=== PATIENT | male | born 1945 | race Caucasian/White ===

== ENCOUNTER 2020-08-17 09:06 | Outpatient (REF) | payer MEDICARE, SELFPAY ==
[2020-08-17 09:38] LABS: MANUAL DIFF FLAG NO
[2020-08-17 09:42] LABS: Basophils Absolute Auto 0.1 X10*3/uL (0.0-0.2); Basophils Percent Auto 0.8 % (0-2); Eosinophils Absolute Auto 0.3 X10*3/uL (0.0-0.4); Eosinophils Percent Auto 4.5 % (0-4); Hematocrit 42.1 % (42-52); Hemoglobin 13.7 g/dl (14.0-18.0); Imm Gran Abs Auto 0.02 X10*3/uL (0.00-0.03); Imm Gran Pct Auto 0.3 % (0.0-0.4); Lymphocytes Absolute Auto 1.6 X10*3/uL (1.2-4.9); Lymphocytes Percent Auto 26.5 % (20-40); Mean Corpuscular HGB Conc 32.5 g/dl (31.0-36.0); Mean Corpuscular Hemoglobin 32.7 pg (27.0-33.0); Mean Corpuscular Volume 100.5 fL (80-98); Mean Platelet Volume 9.3 fL (9.4-12.4); Monocytes Absolute Auto 0.7 X10*3/uL (0.1-1.2); Monocytes Percent Auto 10.9 % (2-11); Neutrophils Absolute Auto 3.4 X10*3/uL (2.0-8.3); Platelet Count 252 X10*3/uL (160-400); Red Blood Count 4.19 X10*6/uL (4.60-5.80); Red Cell Distribution Width 13.4 % (11.0-16.0)
[2020-08-17 10:16] LABS: Alanine Aminotransferase 20 U/L (0-40); Albumin Level 3.8 g/dL (3.5-5.0); Alkaline Phosphatase 104 U/L (39-117); Anion Gap 9 (12-20); Aspartate Amino Transferase 26 U/L (5-37); Bilirubin Total 1.1 mg/dL (0.0-1.0); Blood Urea Nitrogen 22 mg/dL (9-16); Carbon Dioxide 28 mmol/L (22-29); Chloride 107 mmol/L (96-108); Cholesterol 130 mg/dL; Estimated Glomerular Filt Rate > 60; Glucose Fasting 88 mg/dL (60-99); HDL Cholesterol 53 mg/dL; LDL Cholesterol Calculated 65 mg/dl; Potassium 4.8 mmol/l (3.3-5.1); Sodium 139 mmol/L (135-145); Total Protein 6.6 g/dL (6.5-8.0); Triglycerides 60 mg/dL
== END 2020-08-17 09:07 | disposition home or self-care (01) ==
LOC: HO.LAB 09:06
PROVIDERS: PCP Internal Medicine Medical Oncology; Visit Provider Internal Medicine Medical Oncology
DX: E78.5 Hyperlipidemia, unspecified (principal); E66.3 Overweight
CPT/HCPCS: 36415; 80053; 80061; 85025

== ENCOUNTER → 2020-09-23 08:54 | Outpatient (BNVA) | payer MEDICARE, SELFPAY | PROVIDERS: PCP Internal Medicine Medical Oncology; Visit Provider Surgery Vascular Surgery | DX: I73.9 Peripheral vascular disease, unspecified (principal) | CPT/HCPCS: 99202 ==

== ENCOUNTER 2020-10-04 13:08 | Outpatient (REF) | payer MEDICARE, SELFPAY ==
--- NOTE | 2020-10-04 | US_ITS ---
EXAMINATION: COLOR-FLOW DUPLEX IMAGING OF THE BILATERAL LOWER EXTREMITY ARTERIAL SYSTEM. VELOCITY MEASUREMENTS THROUGHOUT THE FEMORAL ARTERIES WITH ANKLE-BRACHIAL PERIPHERAL ARTERIAL TESTING. Interventional Radiologist: Will Little M.D., F.S.I.R., F.A.C.R. CLINICAL INFORMATION: This is a 75-year-old male with peripheral vascular disease. Bilateral claudication. RIGHT FEMORAL RUNOFF VELOCITIES: The right common femoral artery measures 120 cm/s and biphasic. The right profunda femoral artery is 44 cm/s and is biphasic. Right proximal superficial femoral artery measures 92 cm/s and biphasic. Mid superficial femoral artery is 127 cm/s and biphasic. Distal right superficial femoral artery measures 121 cm/s and is biphasic. Right popliteal velocity measures 70 cm/s and is biphasic. The posterior tibial artery velocity measures 39 cm/s and was biphasic. The right ankle-brachial index is 0.80. LEFT FEMORAL RUNOFF VELOCITIES: The left common femoral artery measures 234 cm/s and biphasic. The left profunda femoral artery is 104 cm/s and is biphasic. Left proximal superficial femoral artery measures 126 cm/s and biphasic. Mid superficial femoral artery is 103 cm/s and biphasic. Distal left superficial femoral artery measures 95 cm/s and is biphasic. Left popliteal velocity measures 83 cm/s and is biphasic. The posterior tibial artery velocity measures 33 cm/s and was monophasic. The left ankle-brachial index is 0.74. US/US NA complete IMPRESSION: 1. There is bilateral mild hemodynamically significant atherosclerotic disease at rest. 2. There is a hemodynamically significant stenosis within the left common femoral artery with elevated velocities.
--- NOTE | 2020-10-04 13:13 | US_ITS ---
EXAMINATION: COLOR-FLOW DUPLEX IMAGING OF THE BILATERAL LOWER EXTREMITY ARTERIAL SYSTEM. VELOCITY MEASUREMENTS THROUGHOUT THE FEMORAL ARTERIES WITH ANKLE-BRACHIAL PERIPHERAL ARTERIAL TESTING. Interventional Radiologist: Will Little M.D., F.S.I.R., F.A.C.R. CLINICAL INFORMATION: This is a 75-year-old male with peripheral vascular disease. Bilateral claudication. RIGHT FEMORAL RUNOFF VELOCITIES: The right common femoral artery measures 120 cm/s and biphasic. The right profunda femoral artery is 44 cm/s and is biphasic. Right proximal superficial femoral artery measures 92 cm/s and biphasic. Mid superficial femoral artery is 127 cm/s and biphasic. Distal right superficial femoral artery measures 121 cm/s and is biphasic. Right popliteal velocity measures 70 cm/s and is biphasic. The posterior tibial artery velocity measures 39 cm/s and was biphasic. The right ankle-brachial index is 0.80. LEFT FEMORAL RUNOFF VELOCITIES: The left common femoral artery measures 234 cm/s and biphasic. The left profunda femoral artery is 104 cm/s and is biphasic. Left proximal superficial femoral artery measures 126 cm/s and biphasic. Mid superficial femoral artery is 103 cm/s and biphasic. Distal left superficial femoral artery measures 95 cm/s and is biphasic. Left popliteal velocity measures 83 cm/s and is biphasic. The posterior tibial artery velocity measures 33 cm/s and was monophasic. The left ankle-brachial index is 0.74. US/US arterial duplex LE BI IMPRESSION: 1. There is bilateral mild hemodynamically significant atherosclerotic disease at rest. 2. There is a hemodynamically significant stenosis within the left common femoral artery with elevated velocities.
== END 2020-10-04 13:09 | disposition home or self-care (01) ==
LOC: HO.US 13:08
PROVIDERS: Visit Provider Surgery Vascular Surgery
DX: I70.213 Atherosclerosis of native arteries of extremities with intermittent claudication, bilateral legs (principal)
CPT/HCPCS: 93923; 93925

== ENCOUNTER → 2020-10-19 11:08 | Outpatient (BNVA) | payer MEDICARE, SELFPAY | PROVIDERS: PCP Internal Medicine Medical Oncology; Visit Provider Surgery Vascular Surgery | DX: I73.9 Peripheral vascular disease, unspecified (principal) | CPT/HCPCS: 99212 ==

== ENCOUNTER → 2020-11-09 09:44 | Outpatient (BNVA) | payer BC, SELFPAY | PROVIDERS: PCP Internal Medicine Medical Oncology; Visit Provider Internal Medicine Cardiovascular Disease | DX: Z76.89 Persons encountering health services in other specified circumstances (principal) ==

== ENCOUNTER 2020-11-18 08:10 | Outpatient (REF) | payer MEDICARE, SELFPAY ==
[2020-11-18 10:11] LABS: MANUAL DIFF FLAG NO
[2020-11-18 10:18] LABS: Basophils Absolute Auto 0.1 X10*3/uL (0.0-0.2); Basophils Percent Auto 0.8 % (0-2); Eosinophils Absolute Auto 0.3 X10*3/uL (0.0-0.4); Eosinophils Percent Auto 4.6 % (0-4); Hematocrit 46.4 % (42-52); Hemoglobin 15.2 g/dl (14.0-18.0); Imm Gran Abs Auto 0.01 X10*3/uL (0.00-0.03); Imm Gran Pct Auto 0.2 % (0.0-0.4); Lymphocytes Absolute Auto 1.7 X10*3/uL (1.2-4.9); Lymphocytes Percent Auto 29.4 % (20-40); Mean Corpuscular HGB Conc 32.8 g/dl (31.0-36.0); Mean Corpuscular Volume 100.9 fL (80-98); Mean Platelet Volume 9.6 fL (9.4-12.4); Monocytes Absolute Auto 0.6 X10*3/uL (0.1-1.2); Monocytes Percent Auto 9.5 % (2-11); Neutrophils Absolute Auto 3.3 X10*3/uL (2.0-8.3); Neutrophils Percent Auto 55.5 % (45-73); Platelet Count 263 X10*3/uL (160-400); Red Cell Distribution Width 12.7 % (11.0-16.0); White Blood Count 5.9 X10*3/uL (4.8-10.8)
[2020-11-18 10:35] LABS: Alanine Aminotransferase 24 U/L (0-40); Albumin Level 3.9 g/dL (3.5-5.0); Alkaline Phosphatase 101 U/L (39-117); Anion Gap 11 (12-20); Aspartate Amino Transferase 23 U/L (5-37); Bilirubin Total 1.3 mg/dL (0.0-1.0); Blood Urea Nitrogen 20 mg/dL (9-16); Calcium 9.3 mg/dL (8.4-10.2); Carbon Dioxide 28 mmol/L (22-29); Chloride 105 mmol/L (96-108); Cholesterol 135 mg/dL; Estimated Glomerular Filt Rate > 60; Glucose Fasting 97 mg/dL (60-99); HDL Cholesterol 59 mg/dL; LDL Cholesterol Calculated 62 mg/dl; Potassium 4.6 mmol/l (3.3-5.1); Sodium 139 mmol/L (135-145); Total Protein 6.8 g/dL (6.5-8.0); Triglycerides 70 mg/dL
== END 2020-11-18 08:11 | disposition home or self-care (01) ==
LOC: HO.10HDL 08:10
PROVIDERS: Visit Provider Internal Medicine Medical Oncology
DX: E78.5 Hyperlipidemia, unspecified (principal); E66.3 Overweight; N40.0 Benign prostatic hyperplasia without lower urinary tract symptoms; Z12.5 Encounter for screening for malignant neoplasm of prostate
CPT/HCPCS: 36415; 80053; 80061; 84153; 85025

== ENCOUNTER 2021-03-17 07:57 | Outpatient (REF) | payer MEDICARE, SELFPAY ==
[2021-03-17 10:18] LABS: MANUAL DIFF FLAG NO
[2021-03-17 10:25] LABS: Basophils Absolute Auto 0.1 X10*3/uL (0.0-0.2); Basophils Percent Auto 1.4 % (0-2); Eosinophils Absolute Auto 0.3 X10*3/uL (0.0-0.4); Eosinophils Percent Auto 6.4 % (0-4); Hematocrit 45.8 % (42-52); Hemoglobin 15.5 g/dl (14.0-18.0); Imm Gran Abs Auto 0.01 X10*3/uL (0.00-0.03); Imm Gran Pct Auto 0.2 % (0.0-0.4); Lymphocytes Absolute Auto 1.6 X10*3/uL (1.2-4.9); Lymphocytes Percent Auto 32.6 % (20-40); Mean Corpuscular HGB Conc 33.8 g/dl (31.0-36.0); Mean Corpuscular Hemoglobin 33.6 pg (27.0-33.0); Mean Corpuscular Volume 99.3 fL (80-98); Mean Platelet Volume 9.7 fL (9.4-12.4); Monocytes Absolute Auto 0.5 X10*3/uL (0.1-1.2); Monocytes Percent Auto 10.7 % (2-11); Neutrophils Absolute Auto 2.4 X10*3/uL (2.0-8.3); Neutrophils Percent Auto 48.7 % (45-73); Platelet Count 254 X10*3/uL (160-400); Red Blood Count 4.61 X10*6/uL (4.60-5.80); Red Cell Distribution Width 12.4 % (11.0-16.0)
== END 2021-03-17 07:58 | disposition home or self-care (01) ==
LOC: HO.10HDL 07:57
PROVIDERS: Visit Provider Internal Medicine Medical Oncology
DX: E78.5 Hyperlipidemia, unspecified (principal); E66.3 Overweight
CPT/HCPCS: 36415; 85025

== ENCOUNTER 2021-03-21 07:34 | Outpatient (REF) | payer MEDICARE, SELFPAY ==
[2021-03-21 10:36] LABS: Alanine Aminotransferase 23 U/L (0-40); Albumin Level 4.1 g/dL (3.5-5.0); Alkaline Phosphatase 120 U/L (39-117); Anion Gap 13 (12-20); Aspartate Amino Transferase 25 U/L (5-37); Bilirubin Total 1.4 mg/dL (0.0-1.0); Blood Urea Nitrogen 24 mg/dL (9-16); Calcium 9.8 mg/dL (8.4-10.2); Carbon Dioxide 28 mmol/L (22-29); Chloride 103 mmol/L (96-108); Cholesterol 129 mg/dL; Estimated Glomerular Filt Rate > 60; Glucose Fasting 90 mg/dL (60-99); HDL Cholesterol 57 mg/dL; LDL Cholesterol Calculated 60 mg/dl; Sodium 139 mmol/L (135-145); Total Protein 6.9 g/dL (6.5-8.0); Triglycerides 63 mg/dL
== END 2021-03-21 07:35 | disposition home or self-care (01) ==
LOC: HO.10HDL 07:34
PROVIDERS: Visit Provider Internal Medicine Medical Oncology
DX: E78.5 Hyperlipidemia, unspecified (principal); E66.3 Overweight
CPT/HCPCS: 36415; 80053; 80061

== ENCOUNTER 2021-04-07 09:20 | Outpatient (REF) | payer MEDICARE, SELFPAY ==
--- NOTE | ~2021-04-07 | US_ITS ---
EXAMINATION: ANKLE-BRACHIAL INDICES SINGLE LEVEL PULSE VOLUME RECORDING ARTERIAL DUPLEX BILATERAL LEGS CLINICAL INFORMATION: Peripheral vascular disease. COMPARISON: None TECHNIQUE: Ankle-brachial indices and PVR at the ankle were obtained. Duplex Doppler of the bilateral lower extremity arterial systems was performed. FINDINGS: RIGHT: Ankle-brachial index: 0.6 PVR: Blunted Common femoral: PSV 118 cm/s. Biphasic waveform. Deep femoral: PSV 523 cm/s. Triphasic waveform proximally with more monophasic waveform distally. Proximal superficial femoral: PSV 92 cm/s. Biphasic waveform. Mid superficial femoral: PSV 204 cm/s. Biphasic waveform. Distal superficial femoral: PSV 119 cm/s. Biphasic waveform. Popliteal: PSV 70 cm/s. Biphasic waveform. Posterior tibial artery: PSV 26 cm/s. Monophasic waveform. LEFT: Ankle-brachial index: 0.82 PVR: Normal Common femoral: PSV 156 cm/s. Biphasic waveform. Deep femoral: PSV 194 cm/s. Biphasic waveform. Proximal superficial femoral: PSV 108 cm/s. Biphasic waveform. Mid superficial femoral: PSV 97 cm/s. Biphasic waveform. Distal superficial femoral: PSV 85 cm/s. Monophasic waveform. Popliteal: PSV 62 cm/s. Triphasic waveform. Posterior tibial artery: PSV 30 cm/s. Monophasic waveform. US/US arterial duplex LE BI IMPRESSION: Right lower extremity: Ankle-brachial index 0.60 consistent with moderate peripheral arterial disease. There is extensive SFA segment disease with calcified high-grade stenoses. By NA disease has worsened compared to 10/04/2020 (previously 0.80) Left lower extremity: Ankle-brachial index 0.82 consistent with mild peripheral arterial disease. There is extensive SFA segment disease with calcified high-grade stenoses. By NA disease is stable compared to 09/24/2020.
--- NOTE | ~2021-04-07 | US_ITS ---
EXAMINATION: ANKLE-BRACHIAL INDICES SINGLE LEVEL PULSE VOLUME RECORDING ARTERIAL DUPLEX BILATERAL LEGS CLINICAL INFORMATION: Peripheral vascular disease. COMPARISON: None TECHNIQUE: Ankle-brachial indices and PVR at the ankle were obtained. Duplex Doppler of the bilateral lower extremity arterial systems was performed. FINDINGS: RIGHT: Ankle-brachial index: 0.6 PVR: Blunted Common femoral: PSV 118 cm/s. Biphasic waveform. Deep femoral: PSV 523 cm/s. Triphasic waveform proximally with more monophasic waveform distally. Proximal superficial femoral: PSV 92 cm/s. Biphasic waveform. Mid superficial femoral: PSV 204 cm/s. Biphasic waveform. Distal superficial femoral: PSV 119 cm/s. Biphasic waveform. Popliteal: PSV 70 cm/s. Biphasic waveform. Posterior tibial artery: PSV 26 cm/s. Monophasic waveform. LEFT: Ankle-brachial index: 0.82 PVR: Normal Common femoral: PSV 156 cm/s. Biphasic waveform. Deep femoral: PSV 194 cm/s. Biphasic waveform. Proximal superficial femoral: PSV 108 cm/s. Biphasic waveform. Mid superficial femoral: PSV 97 cm/s. Biphasic waveform. Distal superficial femoral: PSV 85 cm/s. Monophasic waveform. Popliteal: PSV 62 cm/s. Triphasic waveform. Posterior tibial artery: PSV 30 cm/s. Monophasic waveform. US/US NA complete IMPRESSION: Right lower extremity: Ankle-brachial index 0.60 consistent with moderate peripheral arterial disease. There is extensive SFA segment disease with calcified high-grade stenoses. By NA disease has worsened compared to 10/04/2020 (previously 0.80) Left lower extremity: Ankle-brachial index 0.82 consistent with mild peripheral arterial disease. There is extensive SFA segment disease with calcified high-grade stenoses. By NA disease is stable compared to 09/24/2020.
== END 2021-04-07 09:21 | disposition home or self-care (01) ==
LOC: HO.US 09:20
PROVIDERS: PCP Internal Medicine Medical Oncology; Visit Provider Surgery Vascular Surgery
DX: I70.213 Atherosclerosis of native arteries of extremities with intermittent claudication, bilateral legs (principal)
CPT/HCPCS: 93923; 93925

== ENCOUNTER → 2021-04-12 09:19 | Outpatient (BNVA) | payer MEDICARE, SELFPAY | PROVIDERS: PCP Internal Medicine Medical Oncology; Visit Provider Surgery Vascular Surgery | DX: I73.9 Peripheral vascular disease, unspecified (principal) | CPT/HCPCS: 99212 ==

== ENCOUNTER 2021-04-13 07:26 | Day surgery (SDC) | payer OTHER, SELFPAY ==
[2021-04-13] VITALS (9 sets, daily range): BP systolic 127–166; BP diastolic 54–70; PULSE 49–61; RESP 16–18; TEMP 36.1–36.7; O2SAT 96–99; BMI 28.0
[2021-04-13 08:13] LABS: MANUAL DIFF FLAG NO
[2021-04-13 08:19] LABS: Basophils Absolute Auto 0.1 X10*3/uL (0.0-0.2); Basophils Percent Auto 1.2 % (0-2); Eosinophils Absolute Auto 0.3 X10*3/uL (0.0-0.4); Eosinophils Percent Auto 6.8 % (0-4); Hematocrit 43.8 % (42-52); Hemoglobin 14.7 g/dl (14.0-18.0); Imm Gran Abs Auto 0.01 X10*3/uL (0.00-0.03); Imm Gran Pct Auto 0.2 % (0.0-0.4); Lymphocytes Absolute Auto 1.7 X10*3/uL (1.2-4.9); Lymphocytes Percent Auto 33.2 % (20-40); Mean Corpuscular HGB Conc 33.6 g/dl (31.0-36.0); Mean Corpuscular Hemoglobin 33.3 pg (27.0-33.0); Mean Corpuscular Volume 99.3 fL (80-98); Mean Platelet Volume 9.1 fL (9.4-12.4); Monocytes Absolute Auto 0.7 X10*3/uL (0.1-1.2); Monocytes Percent Auto 12.9 % (2-11); Neutrophils Absolute Auto 2.3 X10*3/uL (2.0-8.3); Neutrophils Percent Auto 45.7 % (45-73); Platelet Count 219 X10*3/uL (160-400); Red Blood Count 4.41 X10*6/uL (4.60-5.80); Red Cell Distribution Width 12.8 % (11.0-16.0)
[2021-04-13 08:30] LABS: Prothrombin Time 11.7 SEC (10.8-13.0)
[2021-04-13 08:33] LABS: Partial Thromboplastin Time 35.5 SEC (24.1-38.0)
[2021-04-13 08:37] LABS: Anion Gap 10 (12-20); Blood Urea Nitrogen 21 mg/dL (9-16); Calcium 9.4 mg/dL (8.4-10.2); Carbon Dioxide 26 mmol/L (22-29); Chloride 104 mmol/L (96-108); Creatinine Clr Calc Pharmacy 60.5; Estimated Glomerular Filt Rate > 60; Glucose Random 92 mg/dL (60-115); Potassium 4.2 mmol/L (3.3-5.1); Sodium 136 mmol/L (135-145)
--- NOTE | 2021-04-13 11:17 | W.PM.OPN ---
Operative Note Operative Note Date of Service: 04/13/21 Narrative: Angiogram report from [facility] Preoperative diagnosis: Atherosclerosis of right lower extremity with with activity limiting claudication Postoperative diagnosis: Same Procedure: 1. Ultrasound-guided left common femoral access 2. Aortogram with right lower extremity runoff 3. Angioplasty of right peroneal artery 4. Angioplasty of right popliteal artery with drug coated balloon 6. Angioplasty and stent of right SFA Surgeon:Rusty Bear M.D. Game Producer:None Anesthesia: Local with moderate conscious sedation for a total of 85 minutes, performed by fl Specimens:none Drains:none Estimated blood loss: Less than 10 ml Indications: 75-year-old gentleman well known to me with activity limiting claudication. His NA had decreased from 0.8 to 0.6. He now presents for endovascular intervention The patient has signed the informed consent after reviewing risks, complications, benefits, and alternatives previously discussed with the patient in my office. The patient was given the opportunity to ask any additional questions or voice any concerns. All questions were answered to the patient's satisfaction. Procedure in detail: Patient was brought to the angiography suite prior to which a time-out was called for patient identification and site verification. Bilateral groins were prepped and draped in the standard surgical fashion. Under ultrasound guidance left common femoral was punctured with micro puncture needle and wire. Subsequently a precision 4 [place] sheath was then placed. Bentson wire was advanced to the level of the aorta. 4 [place] Flush catheter was brought up and parked at the level of the renal arteries. Aortogram was then undertaken. Catheter was brought down to the level of the iliac bifurcation. Iliacs were subsequently imaged. Catheter was then brought in up and over to the right side SFA. Runoff study was then undertaken. Once there was study complete it was recognized that he had significant SFA disease in the distal part including popliteal and there was significant disease in the below-knee vessels origin. At this 0.5 1000 units of systemic heparin was administered. Up and over 5 [place] sheath was then placed. Once this was accomplished we then used a Glidewire Advantage to traverse these lesions. We were able to get in to the peroneal artery after some manipulation. We then insufflated this area with a 3 x 100 balloon. There was still some residual stenosis in the prone ill and a 3 x 20 balloon had to be brought into this area. Once this was accomplished we turned our attention to the behind knee popliteal. This was insufflated with a 5 x 60 drug coated balloon on the right side. This was brought into position in under 3 minutes and left insufflated for a total of 3 minutes in duration. Once this was accomplished there was in the mid to distal SFA a total occlusion. We plasty this with a 6 x 20 balloon. Subsequently we placed a 6 x 40 stent. We then brought in a 6 x 20 and a 6 x 30 balloon to try to iron out the stent and obtain good wall apposition. Once this was accomplished completion angiogram was undertaken catheter wire sheath was brought back to the ipsilateral side and StarClose closure device was deployed. At the end the case sponge instrument counts were correct patient tolerated the procedure well returned to recovery with stable vitals. Interpretation of films: 1. Ultrasound demonstrates appropriate femoral puncture. Image of which was saved. 2. Aortogram demonstrates appropriate caliber aorta. Minimal disease. Appropriate take-off of the renals. 3. Iliac images demonstrate normal flow but significant tortuosity. 4. Right lower extremity had some mild to moderate disease throughout the SFA. Did mid to distal SFA had a near total occlusion. Significant disease at the behind knee popliteal. Poor flow through the origin of the trifurcation. Once through the trifurcation there was reconstitution of the anterior tibial and peroneal posterior tibial was totally occluded. Postprocedure the patient had excellent flow through the SFA popliteal peroneal and anterior tibial arteries. Conclusion: 1. Successful angioplasty and stent of right SFA, successful plasty of right popliteal with drug coated balloon., successful plasty of right peroneal artery. This note is constructed using voice recognition software. While every effort has been made to ensure accuracy, real estate inspector errors may have been included. Thank you for allowing me to participate in the care of your patient. Yours sincerely, Rusty Bear MD, FACS, R.P.V.I.
[2021-04-13] MEDS: Clopidogrel Bisulfate 75 MG TABLET PO (11:47)
[2021-04-13] MEDS: iohexoL 300 MG/ML 100 ML INFUS..BTL IV (12:21)
[2021-04-13] MEDS: iohexoL 300 MG/ML 50 ML INFUS..BTL IV (12:22)
[2021-04-13] MEDS: Lidocaine HCl 1 % MPF 5 ML VIAL SUBCUT (12:23)
== END 2021-04-13 15:28 | disposition home or self-care (01) ==
PROVIDERS: PCP Internal Medicine Medical Oncology; Visit Provider Surgery Vascular Surgery
DX: I70.211 Atherosclerosis of native arteries of extremities with intermittent claudication, right leg (principal); Z87.891 Personal history of nicotine dependence
CPT/HCPCS: 36253; 36415; 37226; 37228; 76937; 80048; 85025; 85610; 85730; 99152; 99153; C1725; C1769; C1876; C1887; C1894; J2250; J3010; Q9967

== ENCOUNTER → 2021-04-25 13:21 | Outpatient (BNVA) | payer MEDICARE, OTHER, SELFPAY | PROVIDERS: PCP Internal Medicine Medical Oncology; Visit Provider Surgery Vascular Surgery | DX: I73.9 Peripheral vascular disease, unspecified (principal) | CPT/HCPCS: 99212 ==

== ENCOUNTER → 2021-05-05 08:16 | Outpatient (BNVA) | payer MEDICARE, OTHER, SELFPAY | PROVIDERS: PCP Internal Medicine Medical Oncology; Visit Provider Internal Medicine Cardiovascular Disease | DX: I25.10 Atherosclerotic heart disease of native coronary artery without angina pectoris (principal); I10 Essential (primary) hypertension | CPT/HCPCS: 99212 ==

== ENCOUNTER 2021-07-19 08:37 | Outpatient (REF) | payer MEDICARE, OTHER, SELFPAY ==
[2021-07-19 10:22] LABS: MANUAL DIFF FLAG NO
[2021-07-19 10:26] LABS: Basophils Absolute Auto 0.1 X10*3/uL (0.0-0.2); Basophils Percent Auto 1.2 % (0-2); Eosinophils Absolute Auto 0.3 X10*3/uL (0.0-0.4); Eosinophils Percent Auto 6.6 % (0-4); Hematocrit 41.6 % (42-52); Hemoglobin 13.8 g/dl (14.0-18.0); Imm Gran Abs Auto 0.01 X10*3/uL (0.00-0.03); Imm Gran Pct Auto 0.2 % (0.0-0.4); Lymphocytes Absolute Auto 1.5 X10*3/uL (1.2-4.9); Lymphocytes Percent Auto 28.3 % (20-40); Mean Corpuscular HGB Conc 33.2 g/dl (31.0-36.0); Mean Corpuscular Volume 99.5 fL (80-98); Mean Platelet Volume 9.7 fL (9.4-12.4); Monocytes Absolute Auto 0.6 X10*3/uL (0.1-1.2); Monocytes Percent Auto 11.7 % (2-11); Neutrophils Absolute Auto 2.7 X10*3/uL (2.0-8.3); Platelet Count 240 X10*3/uL (160-400); Red Blood Count 4.18 X10*6/uL (4.60-5.80); Red Cell Distribution Width 12.8 % (11.0-16.0); White Blood Count 5.1 X10*3/uL (4.8-10.8)
[2021-07-19 10:43] LABS: Alanine Aminotransferase 18 U/L (0-40); Albumin Level 3.8 g/dL (3.5-5.0); Alkaline Phosphatase 95 U/L (39-117); Anion Gap 10 (12-20); Aspartate Amino Transferase 21 U/L (5-37); Bilirubin Total 1.2 mg/dL (0.0-1.0); Blood Urea Nitrogen 19 mg/dL (9-16); Calcium 9.3 mg/dL (8.4-10.2); Carbon Dioxide 26 mmol/L (22-29); Chloride 107 mmol/L (96-108); Cholesterol 120 mg/dL; Estimated Glomerular Filt Rate > 60; Glucose Fasting 90 mg/dL (60-99); HDL Cholesterol 59 mg/dL; LDL Cholesterol Calculated 49 mg/dl; Potassium 4.8 mmol/L (3.3-5.1); Sodium 138 mmol/L (135-145); Total Protein 6.6 g/dL (6.5-8.0); Triglycerides 62 mg/dL
[2021-07-19 11:07] LABS: Prostate Specific Antigen 3.54 ng/mL (<0.05-4.0)
== END 2021-07-19 08:38 | disposition home or self-care (01) ==
LOC: HO.10HDL 08:37
PROVIDERS: Visit Provider Internal Medicine Medical Oncology
DX: Z12.5 Encounter for screening for malignant neoplasm of prostate (principal); E78.5 Hyperlipidemia, unspecified; E66.3 Overweight; N40.0 Benign prostatic hyperplasia without lower urinary tract symptoms
CPT/HCPCS: 36415; 80053; 80061; 84153; 85025

== ENCOUNTER 2021-10-17 08:31 | Outpatient (REF) | payer MEDICARE, SELFPAY ==
[2021-10-17 09:55] LABS: MANUAL DIFF FLAG NO
[2021-10-17 10:02] LABS: Basophils Absolute Auto 0.1 X10*3/uL (0.0-0.2); Basophils Percent Auto 1.1 % (0-2); Eosinophils Absolute Auto 0.3 X10*3/uL (0.0-0.4); Eosinophils Percent Auto 5.7 % (0-4); Hematocrit 43.9 % (42.0-52.0); Hemoglobin 14.4 g/dl (14.0-18.0); Imm Gran Abs Auto 0.01 X10*3/uL (0.00-0.03); Imm Gran Pct Auto 0.2 % (0.0-0.4); Lymphocytes Absolute Auto 1.7 X10*3/uL (1.2-4.9); Lymphocytes Percent Auto 30.1 % (20-40); Mean Corpuscular HGB Conc 32.8 g/dl (31.0-36.0); Mean Corpuscular Hemoglobin 32.9 pg (27.0-33.0); Mean Corpuscular Volume 100.2 fL (80.0-98.0); Mean Platelet Volume 9.6 fL (9.4-12.4); Monocytes Absolute Auto 0.7 X10*3/uL (0.1-1.2); Monocytes Percent Auto 11.5 % (2-11); Neutrophils Absolute Auto 2.9 x10*3/uL (2.0-8.3); Neutrophils Percent Auto 51.4 % (45-73); Platelet Count 238 X10*3/uL (160-400); Red Blood Count 4.38 X10*6/uL (4.60-5.80); Red Cell Distribution Width 12.8 % (11.0-16.0); White Blood Count 5.7 X10*3/uL (4.8-10.8)
[2021-10-17 10:15] LABS: Alanine Aminotransferase 18 U/L (0-40); Albumin Level 3.8 g/dL (3.5-5.0); Alkaline Phosphatase 93 U/L (39-117); Anion Gap 9 (12-20); Aspartate Amino Transferase 22 U/L (5-37); Blood Urea Nitrogen 16 mg/dL (9-16); Calcium 9.7 mg/dL (8.4-10.2); Carbon Dioxide 28 mmol/L (22-29); Chloride 106 mmol/L (96-108); Cholesterol 127 mg/dL; Estimated Glomerular Filt Rate > 60; Glucose Fasting 92 mg/dL (60-99); HDL Cholesterol 56 mg/dL; LDL Cholesterol Calculated 63 mg/dl; Potassium 4.7 mmol/L (3.3-5.1); Sodium 138 mmol/L (135-145); Total Protein 6.6 g/dL (6.5-8.0); Triglycerides 42 mg/dL
== END 2021-10-17 08:32 | disposition home or self-care (01) ==
LOC: HO.10HDL 08:31
PROVIDERS: Visit Provider Internal Medicine Medical Oncology
DX: N40.0 Benign prostatic hyperplasia without lower urinary tract symptoms (principal); E78.5 Hyperlipidemia, unspecified
CPT/HCPCS: 36415; 80053; 80061; 85025

== ENCOUNTER 2022-02-14 08:10 | Outpatient (REF) | payer MEDICARE, SELFPAY ==
[2022-02-14 11:29] LABS: MANUAL DIFF FLAG NO
[2022-02-14 11:38] LABS: Basophils Absolute Auto 0.1 X10*3/uL (0.0-0.2); Basophils Percent Auto 1.3 % (0-2); Eosinophils Absolute Auto 0.3 X10*3/uL (0.0-0.4); Eosinophils Percent Auto 6.3 % (0-4); Hematocrit 43.4 % (42.0-52.0); Hemoglobin 14.2 g/dl (14.0-18.0); Imm Gran Abs Auto 0.01 X10*3/uL (0.00-0.03); Imm Gran Pct Auto 0.2 % (0.0-0.4); Lymphocytes Absolute Auto 1.6 X10*3/uL (1.2-4.9); Lymphocytes Percent Auto 34.2 % (20-40); Mean Corpuscular HGB Conc 32.7 g/dl (31.0-36.0); Mean Corpuscular Hemoglobin 32.8 pg (27.0-33.0); Mean Corpuscular Volume 100.2 fL (80.0-98.0); Mean Platelet Volume 9.5 fL (9.4-12.4); Monocytes Absolute Auto 0.6 X10*3/uL (0.1-1.2); Monocytes Percent Auto 11.7 % (2-11); Neutrophils Absolute Auto 2.2 x10*3/uL (2.0-8.3); Neutrophils Percent Auto 46.3 % (45-73); Platelet Count 243 X10*3/uL (160-400); Red Blood Count 4.33 X10*6/uL (4.60-5.80); Red Cell Distribution Width 12.9 % (11.0-16.0); White Blood Count 4.8 X10*3/uL (4.8-10.8)
[2022-02-14 11:56] LABS: Alanine Aminotransferase 24 U/L (0-40); Albumin Level 3.8 g/dL (3.5-5.0); Alkaline Phosphatase 91 U/L (39-117); Anion Gap 10 (12-20); Aspartate Amino Transferase 25 U/L (5-37); Bilirubin Total 1.5 mg/dL (0.0-1.0); Blood Urea Nitrogen 23 mg/dL (9-16); Calcium 9.4 mg/dL (8.4-10.2); Carbon Dioxide 27 mmol/L (22-29); Chloride 106 mmol/L (96-108); Cholesterol 122 mg/dL; Estimated Glomerular Filt Rate > 60; Glucose Fasting 90 mg/dL (60-99); HDL Cholesterol 53 mg/dL; LDL Cholesterol Calculated 60 mg/dl; Potassium 4.9 mmol/L (3.3-5.1); Sodium 138 mmol/L (135-145); Total Protein 6.5 g/dL (6.5-8.0); Triglycerides 48 mg/dL
[2022-02-14 12:05] LABS: Prostate Specific Antigen 2.46 ng/mL (<0.05-4.0)
== END 2022-02-14 08:11 | disposition home or self-care (01) ==
LOC: HO.WFDLDS 08:10
PROVIDERS: Visit Provider Internal Medicine Medical Oncology
DX: E78.5 Hyperlipidemia, unspecified (principal); E66.3 Overweight; N52.9 Male erectile dysfunction, unspecified; N40.0 Benign prostatic hyperplasia without lower urinary tract symptoms; Z12.5 Encounter for screening for malignant neoplasm of prostate
CPT/HCPCS: 36415; 80053; 80061; 84153; 85025

== ENCOUNTER → 2022-05-08 08:36 | Outpatient (BNVA) | payer MEDICARE, SELFPAY | PROVIDERS: PCP Nurse Practitioner Family; Visit Provider Internal Medicine Cardiovascular Disease | DX: I25.10 Atherosclerotic heart disease of native coronary artery without angina pectoris (principal); I10 Essential (primary) hypertension | CPT/HCPCS: 93005; 99212 ==

== ENCOUNTER 2023-01-17 09:45 | Outpatient (REF) | payer MEDICARE, SELFPAY ==
[2023-01-17 10:57] LABS: MANUAL DIFF FLAG NO
[2023-01-17 11:15] LABS: Basophils Absolute Auto 0.1 X10*3/uL (0.0-0.2); Basophils Percent Auto 0.9 % (0-2); Eosinophils Absolute Auto 0.3 X10*3/uL (0.0-0.4); Eosinophils Percent Auto 4.7 % (0-4); Hematocrit 37.1 % (42.0-52.0); Hemoglobin 12.6 g/dl (14.0-18.0); Imm Gran Abs Auto 0.02 X10*3/uL (0.00-0.03); Imm Gran Pct Auto 0.4 % (0.0-0.4); Lymphocytes Absolute Auto 1.5 X10*3/uL (1.2-4.9); Lymphocytes Percent Auto 26.7 % (20-40); Mean Corpuscular Hemoglobin 32.9 pg (27.0-33.0); Mean Corpuscular Volume 96.9 fL (80.0-98.0); Mean Platelet Volume 9.8 fL (9.4-12.4); Monocytes Absolute Auto 0.7 X10*3/uL (0.1-1.2); Neutrophils Percent Auto 55.3 % (45-73); Platelet Count 259 X10*3/uL (160-400); Red Blood Count 3.83 X10*6/uL (4.60-5.80); Red Cell Distribution Width 12.3 % (11.0-16.0); White Blood Count 5.5 X10*3/uL (4.8-10.8)
[2023-01-17 12:03] LABS: Alanine Aminotransferase 13 U/L (0-40); Albumin Level 3.7 g/dL (3.5-5.0); Alkaline Phosphatase 80 U/L (39-117); Anion Gap 13 (12-20); Aspartate Amino Transferase 21 U/L (5-37); Bilirubin Total 0.7 mg/dL (0.0-1.0); Blood Urea Nitrogen 31 mg/dL (9-16); Calcium 9.4 mg/dL (8.4-10.2); Carbon Dioxide 26 mmol/L (22-29); Chloride 104 mmol/L (96-108); Cholesterol 201 mg/dL; Estimated Glomerular Filt Rate 45; Glucose Fasting 96 mg/dL (60-99); HDL Cholesterol 48 mg/dL; LDL Cholesterol Calculated 134 mg/dl; Potassium 4.8 mmol/L (3.3-5.1); Prostate Specific Antigen 3.34 ng/mL (<0.05-4.0); Sodium 138 mmol/L (135-145); Total Protein 6.1 g/dL (6.5-8.0); Triglycerides 97 mg/dL; Vitamin D 25-OH Total 33.2 ng/mL (>30)
== END 2023-01-17 09:46 | disposition home or self-care (01) ==
LOC: HO.WFDLDS 09:45
PROVIDERS: Visit Provider Internal Medicine Medical Oncology
DX: Z00.00 Encounter for general adult medical examination without abnormal findings (principal); Z12.5 Encounter for screening for malignant neoplasm of prostate; E78.5 Hyperlipidemia, unspecified; N40.0 Benign prostatic hyperplasia without lower urinary tract symptoms
CPT/HCPCS: 36415; 80053; 80061; 82306; 84153; 85025

== ENCOUNTER 2023-01-31 10:24 | Outpatient (REF) | payer OTHER, SELFPAY ==
--- NOTE | ~2023-01-31 | XR_ITS ---
EXAMINATION: XR CHEST CLINICAL INFORMATION: Shortness of breath. COMPARISON: Chest x-ray 01/31/2013. TECHNIQUE: 2 views of the chest were obtained. FINDINGS: The lungs are hyperinflated but clear of acute process. The heart size and pulmonary vascularity is normal. There are multiple calcified lesions in the right axilla question loose bodies versus sclerotic lesions of the scapula. XR/XR chest 2V IMPRESSION: 1. Hyperinflated lungs without acute process. 2. Multiple calcified lesions in the right axilla question loose bodies versus sclerotic lesions of the scapula.
== END 2023-01-31 10:25 | disposition home or self-care (01) ==
LOC: HO.XRAY 10:24
PROVIDERS: PCP Internal Medicine Medical Oncology; Visit Provider Internal Medicine Medical Oncology
DX: R06.02 Shortness of breath (principal)
CPT/HCPCS: 71046

== ENCOUNTER → 2023-02-01 07:57 | Outpatient (REF) | payer OTHER, SELFPAY ==
--- NOTE | 2023-02-01 08:00 | CA_ITS ---
Transthoracic Echocardiogram Amended Patient (Last, First, Middle): Spencer Price P Gender: Male Date of : 1945 Age: 77 Procedure Date: 02/01/2023 Procedure Type: Transthoracic Echocardiogram Location: OP Height: 167.64 cm Weight: 78.47 kg BSA: 1.88 m2 Heart Rate: bpm BP: 150 / 62 mmHg Nut Blanker Operator: TO Referring MD: Trevon Colby MD Fishing Tool Supervisor: Eliezer Armstrong MD Symptoms: R06.02 SOB I25.10 CAD Study Quality: Fair ECG Rhythm: Sinus Conclusions: - 1. Normal LV systolic function with impaired relaxation filling pattern 2. Trivial aortic regurgitation 3. Normal RV systolic pressure 4. Mildly dilated ascending aorta at 3.9 cm 5. No pericardial effusion Findings Left Ventricle Normal left ventricular size, thickness, and systolic function. The visually estimated ejection fraction is between 60-65%. Spectral Doppler is indicative of an impaired relaxation filling pattern. E/E prime ratio is between 8 and 15 consistent with indeterminate filling pressures. Peak GLS is -16.5%, which is mildly reduced. Wall Motion Rest Echo Findings The basal inferior segment is hypokinetic. All other scored wall segments showed normal motion. Right Ventricle Normal right ventricular cavity size and systolic function. Atria The left atrium is normal in size. There is no evidence of interatrial shunt. The right atrium is normal in size. Aortic Valve There is mild calcification of the aortic valve. There is no aortic valve stenosis. There is trace (trivial) aortic valve regurgitation. Mitral Valve There is mild anterior and posterior mitral leaflet thickening. There is trace mitral valve regurgitation. There is no mitral valve stenosis. Pulmonic Valve The pulmonic valve was not well visualized. Tricuspid Valve Likely normal tricuspid valve structure and function. There is trace tricuspid valve regurgitation. The right ventricular systolic pressure is normal. The right ventricular systolic pressure is 32 mmHg. Normal right atrial pressure. There is no evidence of pulmonary hypertension. Great Vessels The pulmonary artery was not well visualized. There is mild dilatation of the ascending aorta measuring 3.90 cm. Venous The inferior vena cava is normal in size and collapses greater than 50% with inspiration. Pericardium/Pleural There is no evidence of pericardial effusion. Prior Study Comparison Changes noted compared to prior study dated: 02/05/2020. mildly dilated ascending aorta Measurements 2D Linear Measurements IVSd: 1.05 0.6-0.9/0.6-1.0 cm LVIDd: 5.22 3.9-5.3/4.2-5.9 cm LVIDd Index: 2.78 2.4-3.2/2.2-3.1 cm/m2 LVIDs: 3.04 2.0-3.6 cm LVPWd: 0.90 0.7-1.1 cm LA Diam: 3.80 2.7-3.8/3.0-4.0 cm LAIDs Index: 2.02 1.5-2.3 cm/m2 LV Mass: 234.62 67-162/88-224 g LV Mass Index: 124.80 43-95/49-115 g/m2 LVOT Diam: 2.40 3.0+(-)1.3 cm 2D Volumes LA Vol: 29.90 2D Systolic Function EF 4C: 65.00 >55% EF 2C: 57.90 >55% EF BiP: 61.60 >55% Mitral Valve MV Pk E: 0.83 MV PK A: 0.92 MV Decel Time: 248.00 E/A: 0.90 E'Lateral: 7.40 E'Medial: 6.42 E/E' Med: 12.90 E/E' Lat: 11.20 PHT: 73.00 MVA PHT: 3.01 Decel Guadalupe: 3.35 Aortic Valve AoV Pk Stephen: 1.49 AoV Mn Stephen: 1.03 AoV VTI: 0.37 AoV Pk Grad: 9.00 Aov Mn Grad: 5.00 MATIAS Cont.VTI: 2.89 LVOT LVOT Pk Stephen: 0.97 LVOT Mn Stephen: 0.62 LVOT VTI: 0.23 LVOT Pk Grad: 4.00 LVOT Mn Grad: 2.00 LVOT Diam: 2.40 LVOT Area: 4.52 Diastolic Function MV Pk E: 0.83 MV Pk A: 0.92 E/A: 0.90 E'Medial: 6.42 E/E' Med: 12.90 E' Laterial: 7.40 E/E' Lat: 11.20 Right Ventricle TAPSE (mm): 25.60 TVS' Stephen: 12.10 Tricuspid Valve TR Pk Stephen: 2.70 TR Pk Grad: 29.00 RA Press: 3.00 RVSP: 32.00 Great Vessels Aorta Sinus of Valsalva: 4.37 2.0-3.[address] [place]: 3.17 1.7-3.4 cm Ao Asc: 3.90 2.1-3.4 cm Updated in Other Vendor System with Status of Final Eliezer Armstrong MD electronically signed on 02/03/2023 12:02:56 PM with status of Final
== END ==
LOC: HO.CARD 07:57
PROVIDERS: PCP Internal Medicine Medical Oncology; Visit Provider Internal Medicine Medical Oncology
DX: R06.02 Shortness of breath (principal); I25.10 Atherosclerotic heart disease of native coronary artery without angina pectoris
CPT/HCPCS: 93306; 93356

== ENCOUNTER 2023-02-02 12:43 | Outpatient (REF) | payer MEDICARE, SELFPAY ==
--- NOTE | 2023-02-02 | PFT_ITS ---
INDICATION: Shortness of breath. SPIROMETRY: FEV1 to FVC 62% with an FEV1 of 1.97 L, which is 82% predicted and FVC of 3.14 L, which is 92% predicted. No significant response to bronchodilator is noted. Maximum voluntary ventilation 82% predicted. LUNGS VOLUMES: Total lung capacity 94% predicted with a residual volume of 122% of predicted. Expiratory reserve volume of 21% predicted. DIFFUSION CAPACITY: DLCO is 62% predicted. COMPARISON: None. INTERPRETATION: There is an obstructive ventilatory defects, consistent with mild COPD. No significant response to bronchodilators noted. Normal maximum voluntary ventilation. Lung volumes were normal, except for a trend of air trapping due to the COPD and there is a moderate diffusion impairment. This could be secondary to emphysematous changes and/or other parenchymal lung conditions should be considered. Should also correct for hemoglobin and clinical correlation warranted. Manish Yuan MD MR/MODL / [id number]
[2023-02-02 15:02] LABS: ABG Refer to POC result
[2023-02-02 15:58] LABS: ABG Base Excess -1.5 mmol/L; ABG HCO3 22 mmol/L (22-26); ABG pCO2 32 mmHg (32-45); ABG pH 7.43 (7.35-7.45); ABG pO2 78 mmHg (83-108)
== END 2023-02-02 12:44 | disposition home or self-care (01) ==
LOC: HO.RESP 12:43
PROVIDERS: PCP Internal Medicine Medical Oncology; Visit Provider Internal Medicine Medical Oncology
DX: R06.02 Shortness of breath (principal); I25.10 Atherosclerotic heart disease of native coronary artery without angina pectoris
CPT/HCPCS: 36600; 82803; 94060; 94727; 94729

== ENCOUNTER 2023-02-19 14:18 | Outpatient (REF) | payer OTHER, MEDICARE, SELFPAY ==
--- NOTE | ~2023-02-19 | US_ITS ---
EXAMINATION: Noninvasive assessment of the arteries of both lower extremities to include a PVR exam limited (1-2 levels) and NA, bilateral. Bilateral lower extremity duplex arterial exam. CLINICAL INFORMATION: Peripheral vascular disease. COMPARISON: None TECHNIQUE: The ankle/brachial indices of the distal posterior tibial and the dorsalis pedis arteries were obtained of the lower extremity arterial system bilaterally; along with pressures and pulse volume recordings at the ankle and duplex Doppler techniques of the common femoral, proximal femoral and proximal profunda arteries. The study was performed at rest. ? FINDINGS AT REST:? RIGHT LE. THE RIGHT ANKLE-BRACHIAL INDEX IS: 0.57 (higher of the DP/PT) >0.97-1.25 = normal - no significant arterial disease 0.75-0.96 = mild peripheral arterial disease 0.50-0.74 = moderate peripheral arterial disease <0.50 = severe peripheral arterial disease <0.30 = critical arterial disease 2. SEGMENTAL PRESSURES: Ankle: PT 66 DP 56 3. PVR WAVEFORMS: Ankle: No normal dicrotic notch. 4. RIGHT LOWER EXTREMITY PEAK SYSTOLIC VELOCITIES (cm/s): Common femoral artery: 126 Profunda femoral artery: 508 Proximal superficial femoral artery: 101 Mid superficial femoral artery: 321 Distal superficial femoral artery: 101 Popliteal artery: 90 Posterior tibial artery: 61 Grayscale and color Doppler imaging of the right lower extremity demonstrates a stent within the distal superficial femoral artery. Biphasic waveforms are seen to the proximal superficial femoral artery, and monophasic waveforms are seen distally. LEFT LE. THE LEFT ANKLE-BRACHIAL INDEX IS: 0.43 (higher of the DP/PT) >0.97-1.25 = normal - no significant arterial disease 0.75-0.96 = mild peripheral arterial disease 0.50-0.74 = moderate peripheral arterial disease <0.50 = severe peripheral arterial disease <0.30 = critical arterial disease 2. SEGMENTAL PRESSURES: Ankle: PT 50 DP 50 3. PVR WAVEFORMS: Ankle: No normal dicrotic notch 4. LEFT LOWER EXTREMITY PEAK SYSTOLIC VELOCITIES (cm/s): Common femoral artery: 138 Profunda femoral artery: 131 Proximal superficial femoral artery: 50 Mid superficial femoral artery: 151 Distal superficial femoral artery: 86 Popliteal artery: 76 Posterior tibial artery: 55 Grayscale and color Doppler imaging of the right lower extremity demonstrates biphasic waveforms in the common femoral artery and monophasic waveforms distally. ? US/US arterial duplex LE BI IMPRESSION: Bilateral common femoral artery biphasic waveforms suggesting aortobiiliac disease. Findings suggesting significant bilateral infrainguinal disease, most notably involving the superficial femoral arteries.
== END 2023-02-19 14:19 | disposition home or self-care (01) ==
LOC: HO.US 14:18
PROVIDERS: PCP Internal Medicine Medical Oncology; Visit Provider Surgery Vascular Surgery
DX: I70.213 Atherosclerosis of native arteries of extremities with intermittent claudication, bilateral legs (principal)
CPT/HCPCS: 93923; 93925

== ENCOUNTER → 2023-03-27 08:50 | Outpatient (BNVA) | payer MEDICARE, SELFPAY | PROVIDERS: PCP Internal Medicine Medical Oncology; Visit Provider Surgery Vascular Surgery | DX: I73.9 Peripheral vascular disease, unspecified (principal) | CPT/HCPCS: 99212 ==

== ENCOUNTER 2023-04-04 05:58 | Day surgery (SDC) | payer OTHER, SELFPAY ==
[2023-04-04] VITALS (8 sets, daily range): BP systolic 120–139; BP diastolic 54–67; PULSE 49–62; RESP 16–18; TEMP 36.2–36.7; O2SAT 55–99; BMI 28.8
[2023-04-04 06:35] LABS: MANUAL DIFF FLAG NO
[2023-04-04 06:39] LABS: Basophils Absolute Auto 0.1 X10*3/uL (0.0-0.2); Basophils Percent Auto 1.1 % (0-2); Eosinophils Absolute Auto 0.3 X10*3/uL (0.0-0.4); Eosinophils Percent Auto 6.3 % (0-4); Hematocrit 39.6 % (42.0-52.0); Hemoglobin 13.2 g/dl (14.0-18.0); Imm Gran Abs Auto 0.03 X10*3/uL (0.00-0.03); Imm Gran Pct Auto 0.6 % (0.0-0.4); Lymphocytes Absolute Auto 1.5 X10*3/uL (1.2-4.9); Lymphocytes Percent Auto 27.7 % (20-40); Mean Corpuscular HGB Conc 33.3 g/dl (31.0-36.0); Mean Corpuscular Hemoglobin 32.6 pg (27.0-33.0); Mean Corpuscular Volume 97.8 fL (80.0-98.0); Monocytes Absolute Auto 0.6 X10*3/uL (0.1-1.2); Monocytes Percent Auto 11.6 % (2-11); Neutrophils Absolute Auto 2.9 x10*3/uL (2.0-8.3); Neutrophils Percent Auto 52.7 % (45-73); Platelet Count 283 X10*3/uL (160-400); Red Blood Count 4.05 X10*6/uL (4.60-5.80); Red Cell Distribution Width 12.2 % (11.0-16.0); White Blood Count 5.4 X10*3/uL (4.8-10.8)
[2023-04-04 07:02] LABS: Blood Urea Nitrogen 30 mg/dL (9-16); Creatinine Clr Calc Pharmacy 39.6; Estimated Glomerular Filt Rate 47
--- NOTE | 2023-04-04 10:06 | P.OP_ITS ---
Operative Note Operative Note Date of Service: 04/04/23 Narrative: Angiogram report from [facility] Preoperative diagnosis: Atherosclerosis of right lower extremity with activity limiting claudication Postoperative diagnosis: Same Procedure: 1. Ultrasound-guided left common femoral access 2. Aortogram with right lower extremity runoff 3. Right SFA atherectomy and stent placement 4. Right distal SFA plasty Surgeon:Rusty Bear M.D., FACS, RPVI Resource Protection Specialist:None Anesthesia: Local with moderate conscious sedation. Total intraservice moderate sedation time was 80 minutes. I monitored the patient's level of consciousness and physiologic status continuously throughout the procedure. Specimens:none Drains:none Estimated blood loss: Less than 10 ml Implant: Medtronic Impact DCB 6 x 40; 6 x 60, Medtronic Ev3 stent - 6 x 60 Indications: 77-year-old gentleman who presented to the office for surveillance follow-up with activity limiting claudication. His right leg continue to be a source of pain and discomfort when walking more than a block. Noninvasive testing demonstrated SFA disease. Now presents for endovascular intervention The patient has signed the informed consent after reviewing risks, complications, benefits, and alternatives previously discussed with the patient. The patient was given the opportunity to ask any additional questions or voice any concerns. All questions were answered to the patient's satisfaction. Procedure in detail: Patient was brought to the angiography suite prior to which a time-out was called for patient identification and site verification. Bilateral groins were prepped and draped in the standard surgical fashion. Under ultrasound guidance left common femoral was punctured with micro puncture needle and wire. Subsequently a precision 4 Marshallese sheath was then placed. Bentson wire was advanced to the level of the aorta. 4 Marshallese Flush catheter was brought up and parked at the level of the renal arteries. Aortogram was then undertaken. Catheter was brought down to the level of the iliac bifu rcation. Iliacs were subsequently imaged. Catheter was then brought in up and over to the right side SFA. Runoff study was then undertaken. Once this was accomplished we advanced an 035 glidewire Advantage across the SFA lesion. We then administered 5000 units of systemic heparin. After 5 minutes of circulation time up and over 6 Marshallese sheath was then placed. We then were able to advanced a NaviCross catheter across this mid SFA lesion that was encountered. We confirmed true lumen by instilling contrast. Once this was accomplished we advanced a spider wire across this area. We 1st plasty did through this area with a 4 x 40 balloon to obtain some luminal diameter. Once this was accomplished we then performed a Hawk 1 atherectomy in the mid SFA. Multiple unidirectional passes were then undertaken. Once we did drain some luminal diameter there was still residual stenosis. We then approached the distal stent which was old and we placed a 6 x 40 Impact DCB at that location. This was brought in in under 3 minutes and insufflated for a total of 3 minutes in duration. We then turned our attention to the mid SFA. The site where the atherectomy was performed there was still residual stenosis. We then placed a 6 x 60 stent. We then post dilated this with a 6 x 60 drug coated balloon. This was brought into position in under 3 minutes and insufflated for a total of 3 mi nutes in duration. Once this was accomplished completion angiogram demonstrated excellent result. Catheter wire sheath was brought back to the ipsilateral side. StarClose closure device was deployed. Patient tolerated the procedure well. Returned to recovery with stable vitals. Interpretation of films: 1. Ultrasound demonstrates appropriate femoral puncture. Image of which was saved. 2. Aortogram demonstrates appropriate caliber aorta. Minimal disease. Appropriate take-off of the renals. 3. Iliac images demonstrate significant tortuosity. 4. Left Leg Common femoral artery: No significant disease Profundus Femoris: No significant disease Superficial femoral artery: Multiple hard calcific lesions throughout the entire SFA mid SFA high-grade stenosis distal stent some mild in stent restenoses. Popliteal artery (p1,p2,p3): Mild to moderate stenosis Anterior tibial artery: No significant disease with runoff all the way to the foot Peroneal artery: No significant disease runoff to ankle Posterior tibial artery: No significant disease runoff toe all the way to the foot Dorsalis pedis/plantar arch: Complete Conclusion: 1. Successful left atherectomy and stent placement in SFA. DCB of InStent restenoses. 2. Anticoagulation status: Continue aspirin Plavix for minimum of 6 months This note is constructed using voice recognition software. While every effort has been made to ensure accuracy, conservation science teacher errors may have been included. Thank you for allowing me to participate in the care of your patient. Yours sincerely, Rusty Bear MD, FACS, R.P.V.I.
== END 2023-04-04 12:12 | disposition home or self-care (01) ==
PROVIDERS: PCP Internal Medicine Medical Oncology; Visit Provider Surgery Vascular Surgery
DX: I70.211 Atherosclerosis of native arteries of extremities with intermittent claudication, right leg (principal); R26.2 Difficulty in walking, not elsewhere classified; I25.10 Atherosclerotic heart disease of native coronary artery without angina pectoris; I10 Essential (primary) hypertension; Z95.5 Presence of coronary angioplasty implant and graft; E78.00 Pure hypercholesterolemia, unspecified; Z79.82 Long term (current) use of aspirin; Z79.01 Long term (current) use of anticoagulants; Z88.8 Allergy status to other drugs, medicaments and biological substances
CPT/HCPCS: 36415; 37227; 76937; 82565; 84520; 85025; 99152; 99153; C1714; C1725; C1760; C1769; C1876; C1884; C1887; J1643; J2250; J3010; Q9967

== ENCOUNTER → 2023-04-19 12:59 | Outpatient (BNVA) | payer OTHER, SELFPAY | PROVIDERS: PCP Internal Medicine Medical Oncology; Visit Provider Surgery Vascular Surgery | DX: I73.9 Peripheral vascular disease, unspecified (principal) | CPT/HCPCS: 99212 ==

== ENCOUNTER → 2023-04-24 14:11 | Outpatient (BNVA) | payer OTHER, SELFPAY | PROVIDERS: PCP Internal Medicine Medical Oncology; Visit Provider Internal Medicine | DX: R06.00 Dyspnea, unspecified (principal); J43.9 Emphysema, unspecified; Z95.5 Presence of coronary angioplasty implant and graft | CPT/HCPCS: 99202 ==

== ENCOUNTER → 2023-05-10 08:44 | Outpatient (BNVA) | payer OTHER, SELFPAY | PROVIDERS: PCP Internal Medicine Medical Oncology; Referring Provider Internal Medicine Medical Oncology; Visit Provider Internal Medicine Cardiovascular Disease | DX: I25.10 Atherosclerotic heart disease of native coronary artery without angina pectoris (principal); I10 Essential (primary) hypertension | CPT/HCPCS: 93005; 99212 ==

== ENCOUNTER 2023-06-07 07:22 | Outpatient (REF) | payer OTHER, SELFPAY ==
--- NOTE | ~2023-06-07 | MR_ITS ---
EXAMINATION: MR LUMBAR SPINE WITHOUT CONTRAST CLINICAL INFORMATION: 77-year-old with bilateral leg pain of 3 months' duration. COMPARISON: 01/08/2014 MRI. TECHNIQUE: MRI of the lumbar spine was obtained using routine sequences without contrast. FINDINGS: CORONAL ALIGNMENT: Yuavldbe-lm-asptjh mid lumbar levoscoliosis stable in appearance, convex to the right at L3-L4. Slight metv-pf-cocjj lateral listhesis at L4-L5 stable in appearance with mild yvvgf-tb-cmzu lateral listhesis at L1-L2 unchanged. SAGITTAL ALIGNMENT: 5-6 mm of 5 grade 1 spondylolisthesis at L5-S1 is stable with suspicion for bilateral pars defects unchanged in appearance. 4 mm of grade 1 degenerative spondylolisthesis at L4-L5 progressed from previous study. Trace retrolisthesis at L3-L4 is stable. Mild hyperlordosis centered at L3 is stable. Trace retrolisthesis at L1-L2 is more evident on current study. LUMBOSACRAL JUNCTION: Normal. There are 5 quj-glw-oynkuhv lumbar-type vertebral bodies. VERTEBRAL BODIES: Stable vertebral body heights. No interval compression fractures. DISC SPACES AND ENDPLATES: Multilevel advanced DDD and spondylosis is noted with pxlzmlqd-km-lkyibw intervertebral disc space height loss, disc desiccation and spondylosis seen primarily between L1-L2 and L5-S1 inclusive, with multilevel intradiscal vacuum disc phenomenon largely similar in appearance to the previous exam. Multilevel Schmorl's nodes are similar to the previous exam. SPINAL CANAL: No abnormal developmental findings. BONE MARROW: No significant bone marrow edema. No suspicious marrow-replacing process. CONUS MEDULLARIS: Terminates at T12-L1. Morphology and signal is normal. INTRADURAL NERVE ROOTS: Multilevel crowding of the intradural nerve roots. See below. L5-S1: Unroofing of the posterior disc margin consistent with grade 1 spondylolisthesis similar to the previous exam, now with a broad-based central extruded disc herniation with slight cephalad migration progressed from previous study. Ligamentum flavum thickening has slightly progressed, with suspicion for bilateral pars defects and bilateral facet arthropathy similar to the previous exam. Zcsxgxss-sd-xbzrrb central spinal canal stenosis has progressed from the previous study with crowding of the intradural nerve roots. There is bilateral subarticular and lateral recess stenosis, right more than left, progressed on the right with probable encroachment on the right S1 nerve root on current study. There is moderate right-sided and wuzj-bb-kfhudsit left-sided craniocaudal neural foraminal stenosis, stable in appearance. L4-L5: There is unroofing of the posterior disc margin progressed from previous study with concentric disc bulging slightly progressed. There is flattening of the ventral dural sac progressed from previous exam and there is ligamentum flavum thickening with severe right-sided and moderate left-sided facet arthropathy with bilateral facet joint effusions, stable on the right and slightly progressed on the left. There is ekdnzjwc-fn-fcqgls central spinal canal stenosis which has progressed from the previous study, now with severe bilateral subarticular recess stenosis and bilateral lateral recess stenosis progressed from previous exam impinging on the traversing L5 nerve roots bilaterally, progressed from previous study. Moderate left-sided and gselvetq-tq-oqrive right-sided craniocaudal neural foraminal stenosis has progressed, with impingement on the exiting L4 nerve roots, right more than left progressed from previous study. L3-L4: Concentric disc osteophyte complex is noted with flattening of the ventral dural sac, with dwkiqqmu-ih-khvxzx bilateral facet arthropathy and ligamentum flavum thickening slightly progressed from previous exam. Moderate central spinal canal stenosis has progressed from the previous exam. Severe left-sided subarticular recess stenosis is stable with encroachment on the traversing left L4 nerve root. Severe left-sided neural foraminal stenosis has progressed, with impingement on the exiting left L3 nerve root. Contributing to this is a left-sided foraminal/extraforaminal disc herniation on current study. Moderate right-sided neural foraminal stenosis slightly progressed. L2-L3: Broad-based posterolateral disc osteophyte complex is noted bilaterally similar to the previous exam with right-sided foraminal/extraforaminal disc herniation impinging on the extraforaminal right L2 nerve root similar to previous exam. Moderate facet arthropathy noted with ligamentum flavum thickening progressed on the left. Mild central canal stenosis is noted on current study. There is also a superimposed central to left paramedian extruded disc herniation which encroaches on the left neural foramen stable in appearance. Moderate left subarticular recess stenosis is stable. Severe left-sided neural foraminal stenosis has also slightly progressed with further impingement on the exiting left L2 nerve root. Mild right-sided foraminal narrowing is stable. L1-L2: Disc bulging similar to the previous exam with progression of a superimposed shallow central disc protrusion and increased mild flattening of the ventral dural sac. Moderate bilateral facet arthrosis is stable without significant spinal canal stenosis. Moderate left-sided and ayrs-dc-zcffshnq right-sided neural foraminal stenosis stable in appearance. T12-L1: Normal annular contour. Taje-oc-mbblltvr bilateral facet arthropathy slightly progressed without significant canal or neural foraminal stenosis. On the sagittal images, there is a central extruded disc herniation with cephalad migration at T10-T11 stable in appearance without cord impingement. There is central to right lateral foraminal disc herniation at T9-T10 with bilateral facet arthropathy stable in appearance with moderate right-sided neural foraminal stenosis at this level unchanged. Bilateral facet arthropathy at T10-T11 is stable. PARAVERTEBRAL AND INCLUDED EXTRASPINAL SOFT TISSUES: There is posterior paraspinal and psoas muscle sarcopenia. Prostatic enlargement indenting and elevating the bladder base unchanged in appearance. Previously noted large cystic mass arising from the upper pole of the right kidney has reduced in size, now measuring approximately 5 cm maximum craniocaudal dimension. A smaller, 1.8 cm cystic structure along its medial margin has expanded which may be related to reduction of the larger cyst. The larger cyst appears slightly thick-walled and cannot be identified as simple appearing. Correlate with any previous CTs or ultrasounds. Nonspecific bilateral perinephric edema. MR/MR lumbar spine wo con IMPRESSION: 1. Stable grade 1 spondylolisthesis at L5-S1 with stable mild retrolisthesis at L3-L4 and new mild retrolisthesis at L1-L2. 2. Severe multilevel DDD and spondylosis, with some progression of grade 1 degenerative spondylolisthesis at L4-L5 and stable mild retrolisthesis at L3-L4. 3. Multilevel disc bulging, disc osteophyte complexes and disc herniations as described above with progression of disc bulging at L4-L5 and progression of central disc herniation at L5-S1, with progression of spinal canal stenosis at L4-L5 and L5-S1 and progression of spinal canal stenosis at L3-L4 as described above. 4. Multilevel bilateral facet arthropathy and ligamentum flavum thickening with some progression as described above at multiple levels. 5. Multilevel bilateral neural foraminal stenosis, with progression at L4-L5, L3-L4 and L2-L3 as detailed by level above. 6. Lower thoracic degenerative changes and disc herniations as discussed above similar to previous exam. 7. Decrease in size of a previously noted cystic mass arising from the upper pole of the right kidney. Correlate with any previous CTs or ultrasounds. 8. Prostatic enlargement.
== END 2023-06-07 07:23 | disposition home or self-care (01) ==
LOC: HO.MRI 07:22
PROVIDERS: PCP Internal Medicine Medical Oncology; Visit Provider Internal Medicine Medical Oncology
DX: M47.816 Spondylosis without myelopathy or radiculopathy, lumbar region (principal); M54.50 Low back pain, unspecified
CPT/HCPCS: 72148

== ENCOUNTER 2023-07-17 10:22 | Outpatient (REF) | payer OTHER, SELFPAY ==
--- NOTE | ~2023-07-17 | US_ITS ---
EXAMINATION: ANKLE-BRACHIAL INDICES SINGLE LEVEL PULSE VOLUME RECORDING ARTERIAL DUPLEX BILATERAL LEGS CLINICAL INFORMATION: Peripheral vascular disease COMPARISON: 02/19/2023 TECHNIQUE: Ankle-brachial indices and PVR at the ankle were obtained. Duplex Doppler of the bilateral lower extremity arterial systems was performed. FINDINGS: RIGHT: Ankle-brachial index: 0.92 PVR: Normal Common femoral: PSV 143 cm/s. Biphasic waveform. Deep femoral: Occluded Proximal superficial femoral: PSV 204 cm/s. Biphasic waveform. There is a focal occlusion with collateralization more distally. Mid superficial femoral: [place] inflow artery: PSV 91 cm/s. Biphasic waveform. Proximal stent: PSV 106 cm/s. Biphasic waveform. Mid stent: PSV 118 cm/s. Biphasic waveform. Distal stent: PSV 112 cm/s. Biphasic waveform. [place] outflow artery: PSV 110 cm/s. Biphasic waveform. Distal superficial femoral: [place] inflow artery: PSV 118 cm/s. Biphasic waveform. Proximal stent: PSV 116 cm/s. Biphasic waveform. Mid stent: PSV 124 cm/s. Biphasic waveform. Distal stent: PSV 125 cm/s. Biphasic waveform. [place] outflow artery: PSV 89 cm/s. Biphasic waveform. Popliteal: PSV 187 cm/s. Biphasic waveform. Posterior tibial: PSV 85 cm/s. Biphasic waveform. Peroneal: PSV 60 cm/s. Biphasic waveform. LEFT: Ankle-brachial index: 0.55 PVR: Mildly abnormal Common femoral: PSV 138 cm/s. Triphasic waveform. Deep femoral: PSV 102 cm/s. Monophasic waveform. Proximal superficial femoral: PSV 469 cm/s. Monophasic waveform. Mid superficial femoral: PSV 46 cm/s. Monophasic waveform. Distal superficial femoral: PSV 64 cm/s. Monophasic waveform. Popliteal: PSV 72 cm/s. Monophasic waveform. Posterior tibial: PSV 27 cm/s. Monophasic waveform. Peroneal: PSV 18 cm/s. Monophasic waveform. US/US NA complete IMPRESSION: Right: NA 0.92 consistent with mild peripheral arterial disease (previously 0.57). Normal PVR waveform. Occluded PFA. Focally occluded proximal SFA with collateralization. The mid SFA and distal SFA stents are patent. Left: NA 0.55 consistent with moderate peripheral arterial disease (previously 0.43). Abnormal PVR waveform. Severe SFA disease with multiple stenoses. A focal stenosis in the proximal SFA with 4:1 velocity shift consistent with greater than 75% stenosis.
--- NOTE | ~2023-07-17 | US_ITS ---
EXAMINATION: ANKLE-BRACHIAL INDICES SINGLE LEVEL PULSE VOLUME RECORDING ARTERIAL DUPLEX BILATERAL LEGS CLINICAL INFORMATION: Peripheral vascular disease COMPARISON: 02/19/2023 TECHNIQUE: Ankle-brachial indices and PVR at the ankle were obtained. Duplex Doppler of the bilateral lower extremity arterial systems was performed. FINDINGS: RIGHT: Ankle-brachial index: 0.92 PVR: Normal Common femoral: PSV 143 cm/s. Biphasic waveform. Deep femoral: Occluded Proximal superficial femoral: PSV 204 cm/s. Biphasic waveform. There is a focal occlusion with collateralization more distally. Mid superficial femoral: [place] inflow artery: PSV 91 cm/s. Biphasic waveform. Proximal stent: PSV 106 cm/s. Biphasic waveform. Mid stent: PSV 118 cm/s. Biphasic waveform. Distal stent: PSV 112 cm/s. Biphasic waveform. [place] outflow artery: PSV 110 cm/s. Biphasic waveform. Distal superficial femoral: [place] inflow artery: PSV 118 cm/s. Biphasic waveform. Proximal stent: PSV 116 cm/s. Biphasic waveform. Mid stent: PSV 124 cm/s. Biphasic waveform. Distal stent: PSV 125 cm/s. Biphasic waveform. [place] outflow artery: PSV 89 cm/s. Biphasic waveform. Popliteal: PSV 187 cm/s. Biphasic waveform. Posterior tibial: PSV 85 cm/s. Biphasic waveform. Peroneal: PSV 60 cm/s. Biphasic waveform. LEFT: Ankle-brachial index: 0.55 PVR: Mildly abnormal Common femoral: PSV 138 cm/s. Triphasic waveform. Deep femoral: PSV 102 cm/s. Monophasic waveform. Proximal superficial femoral: PSV 469 cm/s. Monophasic waveform. Mid superficial femoral: PSV 46 cm/s. Monophasic waveform. Distal superficial femoral: PSV 64 cm/s. Monophasic waveform. Popliteal: PSV 72 cm/s. Monophasic waveform. Posterior tibial: PSV 27 cm/s. Monophasic waveform. Peroneal: PSV 18 cm/s. Monophasic waveform. US/US arterial duplex LE BI IMPRESSION: Right: AN 0.92 consistent with mild peripheral arterial disease (previously 0.57). Normal PVR waveform. Occluded PFA. Focally occluded proximal SFA with collateralization. The mid SFA and distal SFA stents are patent. Left: NA 0.55 consistent with moderate peripheral arterial disease (previously 0.43). Abnormal PVR waveform. Severe SFA disease with multiple stenoses. A focal stenosis in the proximal SFA with 4:1 velocity shift consistent with greater than 75% stenosis.
== END 2023-07-17 10:23 | disposition home or self-care (01) ==
LOC: HO.US 10:22
PROVIDERS: PCP Internal Medicine Medical Oncology; Visit Provider Surgery Vascular Surgery
DX: I73.9 Peripheral vascular disease, unspecified (principal)
CPT/HCPCS: 93923; 93925

== ENCOUNTER 2023-07-18 07:55 | Outpatient (REF) | payer MEDICARE, SELFPAY ==
[2023-07-18 11:17] LABS: MANUAL DIFF FLAG NO
[2023-07-18 11:43] LABS: Basophils Absolute Auto 0.1 X10*3/uL (0.0-0.2); Basophils Percent Auto 1.2 % (0-2); Eosinophils Absolute Auto 0.4 X10*3/uL (0.0-0.4); Eosinophils Percent Auto 6.8 % (0-4); Hematocrit 41.2 % (42.0-52.0); Hemoglobin 13.7 g/dl (14.0-18.0); Imm Gran Abs Auto 0.03 X10*3/uL (0.00-0.03); Imm Gran Pct Auto 0.5 % (0.0-0.4); Lymphocytes Absolute Auto 1.9 X10*3/uL (1.2-4.9); Lymphocytes Percent Auto 30.8 % (20-40); Mean Corpuscular HGB Conc 33.3 g/dl (31.0-36.0); Mean Corpuscular Hemoglobin 32.6 pg (27.0-33.0); Mean Corpuscular Volume 98.1 fL (80.0-98.0); Mean Platelet Volume 10.1 fL (9.4-12.4); Monocytes Absolute Auto 0.7 X10*3/uL (0.1-1.2); Monocytes Percent Auto 11.8 % (2-11); Neutrophils Percent Auto 48.9 % (45-73); Platelet Count 291 X10*3/uL (160-400); Red Cell Distribution Width 12.9 % (11.0-16.0)
[2023-07-18 12:17] LABS: Cholesterol 117 mg/dL (<200); HDL Cholesterol 51 mg/dL (>40); LDL Cholesterol Calculated 53 mg/dL (<100); Triglycerides 68 mg/dL (<150)
[2023-07-18 12:33] LABS: PSA,Total (Free>4and<10) 2.53 ng/mL (0.00-4.00)
== END 2023-07-18 07:56 | disposition home or self-care (01) ==
LOC: HO.WFDLDS 07:55
PROVIDERS: Visit Provider Internal Medicine Medical Oncology
DX: Z12.5 Encounter for screening for malignant neoplasm of prostate (principal); E78.5 Hyperlipidemia, unspecified; N40.0 Benign prostatic hyperplasia without lower urinary tract symptoms
CPT/HCPCS: 36415; 80061; 84153; 85025

== ENCOUNTER 2023-08-08 09:15 | Outpatient (REF) | payer OTHER, SELFPAY ==
--- NOTE | ~2023-08-08 | XR_ITS ---
EXAMINATION: XR LUMBOSACRAL SPINE WITH OBLIQUES CLINICAL INFORMATION: Scoliosis COMPARISON: MRI of lumbar spine from 06/07/2023 TECHNIQUE: AP, flexion and extension, and lateral views of the lumbar spine. FINDINGS: There is dextroscoliosis of lumbar spine and multilevel degenerative changes. There is diffuse osteopenia. There is anterior listhesis of L5 over S1, L4 over L5 and a mild posterior listhesis of L1 over L2 to, as seen on MRI. There is narrowing of L2-L3 and L3-L4 intervertebral disc space flexion and extension views reveal no instability's. Patient is status post right hip arthroplasty. There are atherosclerotic calcifications of abdominal aorta XR/XR lumbar spine 4V min IMPRESSION: Multilevel degenerative changes with dextroscoliosis and anterolisthesis of L4 over L5 and L5 over S1.
== END 2023-08-08 09:16 | disposition home or self-care (01) ==
LOC: HO.HOSX 09:15
PROVIDERS: PCP Internal Medicine Medical Oncology; Visit Provider Neurological Surgery
DX: M48.062 Spinal stenosis, lumbar region with neurogenic claudication (principal); M41.50 Other secondary scoliosis, site unspecified
CPT/HCPCS: 72110

== ENCOUNTER 2023-08-08 09:15 | Outpatient (AMB) | payer OTHER, SELFPAY ==
--- NOTE | 2023-08-08 10:30 | A.SPINEOV_ITS ---
Intake Intake Visit Reasons: worsening spinal stenosis/foraminal narrowing Allergies oxycodone [From PERCOCET] Allergy (Intermediate, Verified 04/24/23 15:19) HEADACHE/DIAPHORESIS/NAUSEA Assessment & Plan Assessment & Plan (1) Lumbar stenosis with neurogenic claudication: Code(s): M48.062 - Spinal stenosis, lumbar region with neurogenic claudication (2) Scoliosis due to degenerative disease of spine in adult patient: Code(s): M41.50 - Other secondary scoliosis, site unspecified Plan Dear colleague Thank you for referring Spencer Price to the office today with a chief complaint of bilateral leg pain. HPI: This 78-year-old male is suffering from progressive bilateral leg pain with walking and standing. The pain radiates into his posterior thighs and sometimes into the calves. The symptoms started proximally in year and a half ago. He underwent stent placement in his legs, which did not improve the post erior pain that comes with walking and standing. Currently he constantly has to sit down when he walks. Bending forward relieves the symptoms. His right leg will go numb after walking and standing. He denies weakness. He tried physical therapy, chiropractic therapy and cortisone injections without results. PMH: Bladder cancer, cardiac stents many years ago. Stands in bilateral legs., right hip replacement, 3 hernia repairs, hypercholesterolemia Social history: , nonsmoker Medications: Plavix, naproxen, baby aspirin, metoprolol, hydrochlorothiazide, Atorvastatin Allergies: Percocet Physical Exam: Pleasant male. On inspection there was a lumbar degenerative scoliosis with convexity to warts the right side. No pain on palpation. Flexion-extension is unrestricted without pain. Straight leg raise negative. There are no deficits from motor, sensation or reflexes. The pain and down the posterior thighs is reproduced in the office after standing. Radiological Studies: MRI done at [facility] shows a lumbar degenerative scoliosis with the apex at L2-3 and moderate to severe spinal stenosis L3-4 and L4-5 with T2 hyperintensity of the L4-5 facet joints. A standing flexion-extension x-ray today shows no instability of the L4-5 spondylolisthesis. Impression/Plan: This 78-year-old male is suffering from lumbar degenerative scoliosis with subsequent lumbar spinal stenosis and neurogenic claudication. The treatment options are to perform a simple lumbar decompression or to correct the lumbar degenerative scoliosis minimally invasively. He denies any significant back pain therefore I opted to offer him a L3-4 and L4-5 lumbar decompression, left-sided approach to address his neurogenic claudication. These aware that if the symptoms return postoperative 3 that the next step would be to correct the degenerative scoliosis. I explained the procedure complications and postoperative course in detail to the patient and his . He is scheduled for 09/27/2023. He will obtain clearance from his primary care physician and vascular surgeon. He should stop his Plavix 14 days prior to surgery. He is allowed to continues aspirin if needed. Thank you for allowing me to participate in your patients care. total time spent was 50 minutes in counseling ,coordination of plan, personal review of imaging, surgical decision making and subsequent plan George Baltazar MD, PhD Spine Fellowship Trained Neurosurgeon Director, [facility] Orders: Orders XR lumbar spine 4V min Today M41.50 - Other secondary scoliosis, site unspecified, M48.062 - Spinal stenosis, lumbar region with neurogenic claudication Coding Level of Care Code New Pt Level 4 (40056) Diagnoses Lumbar stenosis with neurogenic claudication M48.062 Scoliosis due to degenerative disease of spine in adult patient M41.50
== END 2023-08-08 10:32 | disposition home or self-care (01) ==
PROVIDERS: PCP Internal Medicine Medical Oncology; Referring Provider Internal Medicine Medical Oncology; Visit Provider Neurological Surgery
DX: M48.062 Spinal stenosis, lumbar region with neurogenic claudication (principal); M41.50 Other secondary scoliosis, site unspecified
CPT/HCPCS: 99204

== ENCOUNTER 2023-08-14 14:39 | Outpatient (AMB) | payer OTHER, SELFPAY ==
--- NOTE | 2023-08-14 14:45 | MHC.OFFVIS ---
Intake Vital Signs 08/14/23 14:46 Height 5 ft 6 in Weight 167 lb BMI 27.0 Intake Visit Reasons: 3 mo follow up s/p Arterial US 07/17/2023 Intake Note: 3 mo arterial US Follow up s/p Right Angio 04/04/23 and Hx of Right Angio 04/13/21, Left fem endarterectomy 06/2018 and right angio 12/19/2017. Pt states he still has bilateral LE cramping and pain. STates he also needs back surgery Accompanied by: Self / Same As Patient Allergies oxycodone [From PERCOCET] Allergy (Intermediate, Verified 08/14/23 14:49) HEADACHE/DIAPHORESIS/NAUSEA HPI 3 mo follow up s/p Arterial US 07/17/2023 HPI Details Very pleasant 78-year-old gentleman presents for follow-up evaluation regarding peripheral vascular disease. Reports that he has been doing relatively well from a peripheral vascular standpoint. Most recently he has been worked up for his lumbar spine in degenerative disc disease. He has actually seen the spine surgery team and is being worked up for L3-4 and L4-5 lumbar decompression. He presents for routine surveillance follow-up regarding his peripheral vascular disease. He has had no significant interval changes. [facility] Medical History Pulmonary emphysema Dyspnea on exertion COPD (chronic obstructive pulmonary disease) CAD (coronary artery disease) HTN (hypertension) Hyperlipidemia PAD (peripheral artery disease) Hypercholesteremia Surgical History Stented coronary artery Hx of colonoscopy Hx of inguinal hernia repair Hx of appendectomy History of hip surgery History of femoral angiogram Family History Father CVD (cardiovascular disease) Mother Lung cancer Social History Patient Tobacco Use Status: Former Tobacco user Review of Systems Const All systems reviewed & are unremarkable except as noted in HPI and below Reports no additional complaints ENT Reports Normal hearing present Card Denies chest pain, Denies chest pain at rest, Denies chest pain with activity and Denies pedal edema Resp Denies cough GI Denies abdominal pain Musc Denies abnormal gait, Denies muscle cramps and Denies radiating pain into limb Skin/Breast Denies skin ulcer and Denies wounds Neuro Reports Normal hearing present and Denies abnormal gait Psych Reports no additional complaints Physical Exam Vital Signs: BMI result Body Mass Index 27.0 Const General: cooperative, healthy appearing and comfortable Orientation/consciousness: oriented to person, oriented to place and oriented to time HEENT Head: Yes normal to inspection Neck Neck: Yes normal visual inspection Carotids: no bruits Chest Chest palpation & inspection: normal inspection of the chest Resp Effort & Inspection: normal respiratory effort and able to speak in complete sentences Auscultation: clear to auscultation bilaterally, no crackles, no rales, no rhonchi and no wheezes Cardio Other: Right side palpable DP, left side signal only Rate: regular rate Rhythm: regular rhythm Heart sounds: S1 normal heart sound present and S2 normal heart sound present Bruits: no carotid bruits Peripheral pulses: Peripheral pulses 2+ throughout GI Inspection: Yes normal to inspection Skin Wounds: no wounds Hair: normal Neuro General: oriented to person, oriented to place and oriented to time Cranial nerves: Yes CN's II-XII intact bilaterally and Yes Normal hearing present Cognition (Neuro): normal cognition Motor exam (neuro): 5/5 motor strength present throughout Extrem Other: venous exam: No significant superficial varicosities or spider telangiectasias, minimal edema General: No clubbing, No cyanosis and No edema Psych Appearance: grossly normal Mental Status: mental status grossly normal Speech and movement: Normal speech and movement present Results Reviewed Results Reviewed: Noninvasive arterial testing dated 07/17/2023 demonstrates NA on the right of 0.92 and on the left of 0.55. Written report and images were reviewed. Assessment & Plan Assessment & Plan (1) PAD (peripheral artery disease): Comment: 04/04/2023- right SFA atherectomy and stent placement 04/13/2021- angioplasty right peroneal and popliteal artery, angioplasty and stent of right SFA 06/2018 Left fem endarterectomy Right superficial fem artery atherectomy and angioplasty Right atherectomy and balloon angioplasty of the popliteal & superficial arteries and peroneal artery. 12/19/2017 Code(s): I73.9 - Peripheral vascular disease, unspecified Plan: In short the patient recently has undergone right lower extremity endovascular intervention. He appears to be doing extremely well with that. The concern is his left lower extremity and his back. I do think that his back does take precedence as the clinical symptomatology does point towards the back being more of an issue. Unfortunately he will have to wait 6 months from the last endovascular intervention which was on 04/04/2023. He can stop his dual anti-platelet therapy on 10/05/2023. From my perspective he can be scheduled 2 weeks after for spine surgery. Postoperatively he only needs to restart aspirin at that point. I will get a surveillance ultrasound in approximately 6 months time and will consider left lower extremity intervention at that point. Also of note he is a patient of Dr. Armstrong. Due to his significant peripheral vascular and cardiac history would recommend cardiac risk stratification prior to any surgical intervention as well. Thank you for allowing us to assist in his care. If there are any questions or concerns please do not hesitate to contact us. Orders: Orders US arterial duplex LE BI 6 Months I73.9 - Peripheral vascular disease, unspecified Coding Level of Care Code Est Pt Level 4 (41218) Diagnoses PAD (peripheral artery disease) I73.9
[2023-08-14 14:46] VITALS: BMI 27.0
== END 2023-08-14 15:05 | disposition home or self-care (01) ==
PROVIDERS: PCP Internal Medicine Medical Oncology; Visit Provider Surgery Vascular Surgery
DX: I73.9 Peripheral vascular disease, unspecified (principal); Z95.820 Peripheral vascular angioplasty status with implants and grafts
CPT/HCPCS: 99214

== ENCOUNTER → 2023-08-14 14:39 | Outpatient (BNVA) | payer OTHER, SELFPAY | PROVIDERS: PCP Internal Medicine Medical Oncology; Visit Provider Surgery Vascular Surgery | DX: I73.9 Peripheral vascular disease, unspecified (principal); Z95.820 Peripheral vascular angioplasty status with implants and grafts; Z98.890 Other specified postprocedural states | CPT/HCPCS: 99212 ==

== ENCOUNTER → 2023-10-11 14:19 | Outpatient (BNV) | payer OTHER, SELFPAY | PROVIDERS: PCP Internal Medicine Medical Oncology; Visit Provider Internal Medicine Cardiovascular Disease | DX: I47.10 Supraventricular tachycardia, unspecified (principal); R94.31 Abnormal electrocardiogram [ECG] [EKG] | CPT/HCPCS: 93010 ==

== ENCOUNTER 2023-10-25 07:24 | Day surgery (SDC) | payer OTHER, SELFPAY ==
--- NOTE | 2023-10-11 | ECG_ITS ---
Test Reason : preop Blood Pressure : / mmHG Vent. Rate : 060 BPM Atrial Rate : 060 BPM P-R Int : 166 ms QRS Dur : 082 ms QT Int : 410 ms P-R-T Axes : 044 -45 012 degrees QTc Int : 410 ms Sinus rhythm with Premature supraventricular complexes Left axis deviation Abnormal ECG When compared with ECG of 09-SEP-2018 09:51, Premature supraventricular complexes are now Present Referred By: Lily Willis Electronically Signed By:SAJI LONGO MD
[2023-10-11 13:30] VITALS: BP 156/69; PULSE 70; RESP 16; O2SAT 95; BMI 28.8
--- NOTE | 2023-10-11 13:42 | HO.ANESPROP2 ---
Documented by User: Lily Willis NP 10/24/23 08:23 HPI - Anesthesia Eval Consult details Narrative: 78yo M for Left L3-4,L4-5 Lumbar Decompression, 10/25/23 Medically cleared No recent illness No CP/SOB with rest. Activity very limited to pain PONV. Scop with good effect CAD s/p stent 2015 PAD s/p R SFA arthrectomy and stent 03/2023. 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 (Acute) Pulmonary emphysema (Acute) Dyspnea on exertion (Acute) COPD (chronic obstructive pulmonary disease) (Acute) CAD (coronary artery disease) (Acute) HTN (hypertension) (Acute) Hyperlipidemia (Acute) PAD (peripheral artery disease) (Acute) Past Medical History Medical History PONV (postoperative nausea and vomiting) Pulmonary emphysema Dyspnea on exertion COPD (chronic obstructive pulmonary disease) CAD (coronary artery disease) HTN (hypertension) Hyperlipidemia PAD (peripheral artery disease) Hypercholesteremia Family History Family History Father CVD (cardiovascular disease) Mother Lung cancer Family history of problems with anesthesia: No Surgical History Surgical History H/O cardiac catheterization Stented coronary artery Hx of colonoscopy Hx of inguinal hernia repair Hx of appendectomy History of hip surgery History of femoral angiogram History of Problems with Anesthesia: No Social History Social History Household Members: Spouse Housing: House Are you a primary healthcare or medical to a significant other at home: No Do you presently have visiting nurse or other home services: No Patient Tobacco Use Status: Former Tobacco user Quit Date: Tobacco use type: Cigarette Use of substances other than those prescribed or required for medical reasons: No Have you been hit, kicked, punched, or otherwise hurt by someone within the past year? If so, by whom?: No Are you DNR?: No Advance Directives: No Advance Directives Information Provided: Yes Advance Directives on File: No Recently lost weight without trying: No Nutrition Risks: No Nutritional Risk Poor oral hygiene: No Meds Allergies Allergy/AdvReac Type Severity Reaction Status Date / Time oxycodone [From PERCOCET] Allergy Severe HEADACHE/DI Verified 10/11/23 13:24 APHORESIS/N AUSEA Home Medications Medication Instructions Recorded Confirmed Last Taken Type aspirin 81 mg tablet,delayed 81 mg PO DAILY 09/23/20 10/11/23 04/04/23 History release (Adult Aspirin Regimen) ezetimibe 10 mg tablet 10 mg PO DAILY 09/23/20 10/11/23 04/04/23 History metoprolol succinate 50 mg 50 mg PO DAILY 09/23/20 10/11/23 04/04/23 History tablet,extended release 24 hr lisinopril 10 1 tab PO DAILY 03/27/23 10/11/23 04/04/23 History mg-hydrochlorothiazide 12.5 mg tablet naproxen 500 mg tablet 500 mg PO DAILY PRN Pain 03/27/23 10/11/23 04/04/23 History atorvastatin 40 mg tablet 80 mg PO DAILY 10/11/23 10/11/23 Unknown History Exam Height,Weight and Vital Signs: Height 5 ft 5 in Weight 78.6 kg Last Vital Signs Pulse 70 10/11/23 13:30 Resp 16 10/11/23 13:30 BP 156/69 H 10/11/23 13:30 Pulse Ox 95 10/11/23 13:30 O2 Del Method Room Air 10/11/23 13:30 Pertinent Lab Results Pertinent Lab Results: Laboratory Tests 07/18/23 10/11/23 07:58 14:04 WBC 6.0 Hgb 13.7 L Hct 41.2 L Plt Count 291 Sodium 137 Potassium 4.1 Chloride 104 Carbon Dioxide 28 BUN 32 H Creatinine 1.24 Narrative Narrative: EKG 09/2023 Vent. Rate : 060 BPM Atrial Rate : 060 BPM P-R Int : 166 ms QRS Dur : 082 ms QT Int : 410 ms P-R-T Axes : 044 -45 012 degrees QTc Int : 410 ms Sinus rhythm with Premature supraventricular complexes Left axis deviation Abnormal ECG When compared with ECG of 09-SEP-2018 09:51, Premature supraventricular complexes are now Present Airway Mallampati Class: I TM Dist: >3cm Neck ROM: Full Partial: Upper and Lower Heart: RRR Lungs: CTAB Assessment and Plan Assessment Anesthesia Assessment: Anesthesia Plan Discussed and PAT Visit Final Anesthetic Review Family History of Problems with Anesthesia: No History of Problems with Anesthesia: No Documented by User: Iman Downing MD 10/25/23 07:59 PMFSH Past Medical History Medical History PONV (postoperative nausea and vomiting) Pulmonary emphysema Dyspnea on exertion COPD (chronic obstructive pulmonary disease) CAD (coronary artery disease) HTN (hypertension) Hyperlipidemia PAD (peripheral artery disease) Hypercholesteremia Family History Family History Father CVD (cardiovascular disease) Mother Lung cancer Surgical History Surgical History H/O cardiac catheterization Stented coronary artery Hx of colonoscopy Hx of inguinal hernia repair Hx of appendectomy History of hip surgery History of femoral angiogram Social History Social History Household Members: Spouse Housing: House Are you a primary healthcare or medical to a significant other at home: No Do you presently have visiting nurse or other home services: No Patient Tobacco Use Status: Former Tobacco user Quit Date: Tobacco use type: Cigarette Use of substances other than those prescribed or required for medical reasons: No Have you been hit, kicked, punched, or otherwise hurt by someone within the past year? If so, by whom?: No Are you DNR?: No Advance Directives: No Advance Directives Information Provided: Yes Advance Directives on File: No Recently lost weight without trying: No Nutrition Risks: No Nutritional Risk Poor oral hygiene: No Meds Allergies Allergy/AdvReac Type Severity Reaction Status Date / Time oxycodone [From PERCOCET] Allergy Severe HEADACHE/DI Verified 10/11/23 13:24 APHORESIS/N AUSEA Home Medications Medication Instructions Recorded Confirmed Last Taken Type aspirin 81 mg tablet,delayed 81 mg PO DAILY 09/23/20 10/11/23 04/04/23 History release (Adult Aspirin Regimen) ezetimibe 10 mg tablet 10 mg PO DAILY 09/23/20 10/11/23 04/04/23 History metoprolol succinate 50 mg 50 mg PO DAILY 09/23/20 10/11/23 04/04/23 History tablet,extended release 24 hr lisinopril 10 1 tab PO DAILY 03/27/23 10/11/23 04/04/23 History mg-hydrochlorothiazide 12.5 mg tablet naproxen 500 mg tablet 500 mg PO DAILY PRN Pain 03/27/23 10/11/23 04/04/23 History atorvastatin 40 mg tablet 80 mg PO DAILY 10/11/23 10/11/23 Unknown History Exam Airway Partial: Lower (multiple missing teeth poor dentition ) Assessment and Plan Assessment Anesthesia Assessment: Chart Reviewed Final Anesthetic Review NPO: Yes ASA Class: III Final Preanesthetic Review: No Changes in Pt Med Stat, Meds/Allgs Chart Reviewed, Consent Obtained/Reviewed and Anes Risks/Benef Reviewed Patient Risk: Intermediate Procedure Risk: Intermediate Anesthetic Plan Anesthetic Plan: GA Disposition: Standard PACU
[2023-10-11 15:16] LABS: Anion Gap 9 (12-20); Blood Urea Nitrogen 32 mg/dL (9-16); Calcium 9.8 mg/dL (8.4-10.2); Carbon Dioxide 28 mmol/L (22-29); Chloride 104 mmol/L (96-108); Creatinine Clr Calc Pharmacy 45.9; Estimated Glomerular Filt Rate 56; Glucose Random 103 mg/dL (60-115); Potassium 4.1 mmol/L (3.3-5.1); Sodium 137 mmol/L (135-145)
[2023-10-25] VITALS (9 sets, daily range): BP systolic 109–137; BP diastolic 48–68; PULSE 69–84; RESP 12–16; TEMP 36.1–36.6; O2SAT 97–100
--- NOTE | ~2023-10-25 | FL_ITS ---
EXAMINATION: XR FLUOROSCOPY WITH IMAGES CLINICAL INFORMATION: L3-L4, L4-L5 lumbar decompression. COMPARISON: None available. TECHNIQUE: Fluoroscopy Supervised By: Dr. George Baltazar. Fluoroscopy Time: 0.0 minutes. Cumulative Dose: 2.88 mGy. DAP: 0.0434 Gycm2. Images: 2. FINDINGS: Images demonstrate surgical instruments projecting posterior to the L4 vertebral body. FL/FL guidance in OR IMPRESSION: Fluoroscopic guidance for lumbar spine surgery.
[2023-10-25] MEDS: Lactated Ringers 1,000 ML 100 ML IVCONT (08:24)
[2023-10-25] MEDS: methocarbamoL 750 MG TABLET PO (08:24)
[2023-10-25] MEDS: Gabapentin 300 MG CAPSULE PO (08:24)
[2023-10-25] MEDS: Scopolamine 1.5 MG PATCH.TD.3 TRANSDERMA (08:24)
--- NOTE | 2023-10-25 11:00 | W.PM.OPN ---
Operative Note Operative Note Date of Service: 10/25/23 Narrative: Preoperative Diagnosis: L3-4, L4-5 spinal stenosis/lateral recess stenosis/neural foraminal stenosis Operation: L3-4, L4-5 Laminotomy, Partial facetectomy and foraminotomy with use of microscope Consent Informed Consent was obtained for this operation. I have explained the nature, purpose and benefits of the operation. I have discussed the risks and benefit of the operation including possible complications or adverse events with patient/family. Alternative(s) were discussed with the patient with their relative benefits and risks as well as the consequences of not accepting the operation were included in obtaining consent. Surgeon: CHERYL KUMAR MD, PHD Procedure Assisted By: Will Trujillo Description of Procedure this 78-year-old male suffering from neurogenic claudication due to L3-4 and L4-5 spinal stenosis. The patient was offered a decompression. The procedure complications were explained. The patient was consented. The patient was brought to the operating room and endotracheally intubated. The patient was turned in prone position on the Jimmy frame. Prep and drape was done followed by timeout. The Physician property management assistant provided access. A mid lumbar incision was made followed by release of the Left paravertebral to expose the left L3-4 and L4-5 laminae and facet joints. An intraoperative x-ray was obtained to confirm the correct level. The microscope was brought in. I took over the procedure. The high-speed drill was used to do a left L3-4 laminotomy until flavum ligament was reached. A #2 Kerrison was used to expand the laminotomy near flush to the pedicles and to include a partial facetectomy. The flavum ligament was opened and resected with a #3 Kerrison to decompress the underlying thecal sac. The flavum ligament was removed to decompress the lateral recess and the exiting L4 nerve root. the patient was turned contralaterally and the spinous process was undercut to reach the contralateral side. A right-sided decompression was done with opening of the lateral recess and decompression of the exiting nerve root. Then attention was turned to the L4-5 area. A left L4-5 hemilaminotomy and partial facetectomy was done. A significant hypertrophied flavum ligament was encountered that was partially attached to the L5 nerve root. A plane was created between the nerve root and the flavum ligament after which the flavum ligament was resected in 1 piece which led to excellent decompression of the exiting L5 nerve root. Again the spinous process was cut to reach the contralateral level and perform a right-sided decompression.A long nerve hook could be easily passed along the medial side of the pedicles as a sign of adequate decompression. The microscope was removed. Hemostasis was done. The physician property management assistant close the Incision in 2 layers. Steri-Strips were used to approximate incision. An OpSite with Tegaderm was used to cover the incision. All sponge needle counts were correct. Patient was extubated and transported in stable is to recovery room. Anesthesia: General Estimated Blood Loss (ml): 25 mL Complications: None Duration of Surgery: Under 60 Minutes Postoperative Plan: Discharge to home
--- NOTE | 2023-10-25 11:06 | PM.DS ---
DS: Providers Provider Date of Service: 10/25/23 Date of discharge: 10/25/23 Primary care physician: Trevon Colby MD Admitting clinician: George Baltazar DS: Diagnosis Discharge Diagnosis (1) Lumbar stenosis with neurogenic claudication: Status: Acute DS: Summary Time Attestation Discharge coordination time: Less than 30 minutes Quality: Safe Use of Opioids Does Pt have an Active Cancer Diagnosis on the Problem List?: No Quality: Stroke Does the patient have a stroke diagnosis?: No Physical Exam Vital Signs: Vital Signs: Last Vital Signs Temp 97.8 F 10/25/23 08:02 Pulse 84 10/25/23 08:02 Resp 16 10/25/23 08:02 BP 137/68 10/25/23 08:02 Pulse Ox 97 10/25/23 08:02 O2 Del Method Room Air 10/25/23 08:02 BMI result Body Mass Index 28.8 Discharge Plan Discharge Patient Disposition: Home, Self-Care Referrals: Trevon Colby MD [Primary Care Provider] - 1 Week Discharge Medications: New docusate sodium [Colace] 100 mg capsule 100 mg PO BID Qty: 20 0RF tramadol 50 mg tablet 50 mg PO Q6H PRN (Reason: pain) Qty: 30 0RF Continued atorvastatin 40 mg tablet 80 mg PO DAILY ezetimibe 10 mg tablet 10 mg PO DAILY metoprolol succinate 50 mg tablet extended release 24 hr 50 mg PO DAILY lisinopril-hydrochlorothiazide 10-12.5 mg tablet 1 tab PO DAILY naproxen 500 mg tablet 500 mg PO DAILY PRN (Reason: Pain) Held clopidogrel [Plavix] 75 mg tablet 75 mg PO DAILY Qty: 30 3RF Hold Instructions: Resume on 10/30/23. aspirin [Adult Aspirin Regimen] 81 mg tablet,delayed release (DR/EC) 81 mg PO DAILY Hold Instructions: Resume on 10/30/23. Discharge Orders: Discharge Order (Routine); Ordered 10/25/23 Ordered By: Will Cintron Diet: Advance to usual diet Activity on Discharge: As tolerated Activity Restrictions/Additional Instructions: After your spinal surgery we ask you to observe the following restrictions/guidelines: YOU CAN RESTART PLAVIX AND ASPRIN 5 DAYS AFTER SURGERY Activity: It is normal to feel some discomfort as you increase your activity, but that will improve with time. We ask you avoid heavy lifting or acitivities that cause pain. As a general rule, 8lbs is a safe limit for lifting right after surgery. Walk as much as you feel comfortable but not to exhaustion. You will feel extra tired the first few days after surgery. Stay well hydrated. It is OK to walk up and down stairs You may return to driving when you are off narcotics (such as vicodin, oxycodone, dilaudid, etc), and you are back to normal functional capacity. If you have any concerns please check with office before driving. Return to work is specific to each patient and each surgery, so please speak with your doctor/PA at first follow up. Please bring paperwork such as FMLA at that time if you need it filled out. Medications: For optimum pain control, it is best to start with a combination of 500 mg of Tylenol every 4 hours with 600 mg of Motrin every 8 hours, and use narcotics as needed in between for breakthrough pain. We will give you a short supply of narcotics after surgery (usually one weeks worth). If you need more please call the office but do not use more than prescribed. You will need to give our office 48 hours notice if you need narcotics refilled and we do not fill narcotics on weekends or evenings. If you are on a narcotic, it is a good idea to take a stool softener such as colace or senna to avoid constipation If you take blood thinner such as aspirin, Plavix, Coumadin, Effient, Eliquis etc for conditions such as Afib, DVT, Pulmonary embolus, coronary disease, stents etc please speak with your surgeon about specific details as to when you can resume these medications. You can resume NSAIDs on post op day 1 (eg: Motrin, Naproxen, etc). Follow up: Please call the office, , after surgery to arrange a 3 week follow up for wound check. Wound Care: You may remove your dressing on the first day after surgery. ?You may ?leave open to air. Please do not remove the steri strips underneath. they will fall off on their own in one week. IT IS NORMAL FOR THE WOUND TO OOZE OR BE BLOODY FOR A FEW DAYS AFTER SURGERY. ?IF THIS HAPPENS JUST PLACE NEW DRESSING OVER IT TO AVOID STAINING CLOTHES. You may shower on post op day # 1 We ask that you do not let the water soak the wound. If it does get wet, just towel dry lightly. Please do not scrub your incision or place any type of chemical/ointment on the wound. No tub baths, pools or jacuzzis for one month. If you have any leaking or redness from your wound, or fevers, please call office
[2023-10-25] MEDS: ondansetron HCL 4 MG/2 ML VIAL IVPUSH (11:52)
== END 2023-10-25 13:00 | disposition home or self-care (01) ==
PROVIDERS: Nurse Practitioner; PCP Internal Medicine Medical Oncology; Visit Provider Neurological Surgery
PROC: (CPT 63047; principal; 2023-10-25 09:40)
DX: M48.062 Spinal stenosis, lumbar region with neurogenic claudication (principal); M41.50 Other secondary scoliosis, site unspecified; M79.605 Pain in left leg; M79.604 Pain in right leg; I10 Essential (primary) hypertension; I25.10 Atherosclerotic heart disease of native coronary artery without angina pectoris; Z95.5 Presence of coronary angioplasty implant and graft; E78.00 Pure hypercholesterolemia, unspecified; J44.9 Chronic obstructive pulmonary disease, unspecified; C67.9 Malignant neoplasm of bladder, unspecified; R26.2 Difficulty in walking, not elsewhere classified; Z96.641 Presence of right artificial hip joint; Z79.02 Long term (current) use of antithrombotics/antiplatelets; Z79.1 Long term (current) use of non-steroidal anti-inflammatories (NSAID); Z79.82 Long term (current) use of aspirin; Z79.899 Other long term (current) drug therapy; Z88.5 Allergy status to narcotic agent; Z87.891 Personal history of nicotine dependence
CPT/HCPCS: 63047; 63048; 36415; 80048; 93005; J0131; J0690; J1100; J1885; J2371; J2405; J2704; J3010

== ENCOUNTER → 2023-10-25 07:24 | Outpatient (BNV) | payer OTHER, SELFPAY | PROVIDERS: PCP Internal Medicine Medical Oncology; Visit Provider Neurological Surgery | DX: M48.062 Spinal stenosis, lumbar region with neurogenic claudication (principal) | CPT/HCPCS: 63047; 63048; 99499 ==

== ENCOUNTER 2023-11-15 09:47 | Outpatient (AMB) | payer OTHER, SELFPAY ==
--- NOTE | 2023-11-15 10:09 | MHC.OFFVIS ---
Intake Intake Visit Reasons: 1st post op Intake Note: pt her for his 1st post op Nursing Support Worker Required: No Allergies oxycodone [From PERCOCET] Allergy (Severe, Verified 10/11/23 13:24) HEADACHE/DIAPHORESIS/NAUSEA PFSH Medical History PONV (postoperative nausea and vomiting) Pulmonary emphysema Dyspnea on exertion COPD (chronic obstructive pulmonary disease) CAD (coronary artery disease) HTN (hypertension) Hyperlipidemia PAD (peripheral artery disease) Hypercholesteremia Surgical History H/O cardiac catheterization Stented coronary artery Hx of colonoscopy Hx of inguinal hernia repair Hx of appendectomy History of hip surgery History of femoral angiogram Family History Father CVD (cardiovascular disease) Mother Lung cancer Social History Household Members: Spouse Housing: House Are you a primary director of primary care to a significant other at home: No Do you presently have visiting nurse or other home services: No Patient Tobacco Use Status: Former Tobacco user Quit Date: Tobacco use type: Cigarette Assessment & Plan Assessment & Plan (1) Lumbar stenosis with neurogenic claudication: Code(s): M48.062 - Spinal stenosis, lumbar region with neurogenic claudication Plan Procedure: L3-4, L4-5 Laminotomy, Partial facetectomy and foraminotomy Spencer comes in today for his 1st postoperative visit. He reports he is very satisfied with the surgery and feels much better than he did pre-operatively. The patient reports he is up walking around and completing the majority of his ADLs. He reports that she no longer suffers from the intense pain in his bilateral thighs, which has aided his ability to ambulate. He he reports taking naproxen daily for shoulder issue. He was encouraged to attempt utilizing OTC acetaminophen for any residual low back pain, assuming that he is not allergic to this medication does not any interactions from the medications that his primary care provider has prescribed for him. He was encouraged to reach out to his primary care before starting this medication. No neurological deficit. Patient is able to ambulate well, rises from a seated position without difficulty. Incision sites are closed, well healing, with no signs of drainage. We will follow-up with the patient in 6 weeks for his 2nd postoperative visit. Vikram Baltazar MD,PhD [facility] Coding Level of Care Code Global (99241) Diagnoses Lumbar stenosis with neurogenic claudication M48.062
== END 2023-11-15 10:20 | disposition home or self-care (01) ==
PROVIDERS: PCP Internal Medicine Medical Oncology; Referring Provider Internal Medicine Medical Oncology; Visit Provider Physician Assistant
DX: M48.062 Spinal stenosis, lumbar region with neurogenic claudication (principal)
CPT/HCPCS: 99024

== ENCOUNTER → 2023-11-15 09:47 | Outpatient (BNVA) | payer OTHER, SELFPAY | PROVIDERS: PCP Internal Medicine Medical Oncology; Visit Provider Physician Assistant | DX: M48.062 Spinal stenosis, lumbar region with neurogenic claudication (principal) | CPT/HCPCS: 99212 ==

== ENCOUNTER 2024-01-16 08:51 | Outpatient (AMB) | payer OTHER, SELFPAY ==
--- NOTE | 2024-01-16 08:57 | A.OFFVIS_ITS ---
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 Allergies oxycodone [From PERCOCET] Allergy (Severe, Verified 10/11/23 13:24) HEADACHE/DIAPHORESIS/NAUSEA PFSH Medical History PONV (postoperative nausea and vomiting) Pulmonary emphysema Dyspnea on exertion COPD (chronic obstructive pulmonary disease) CAD (coronary artery disease) HTN (hypertension) Hyperlipidemia PAD (peripheral artery disease) Hypercholesteremia Surgical History H/O cardiac catheterization Stented coronary artery Hx of colonoscopy Hx of inguinal hernia repair Hx of appendectomy History of hip surgery History of femoral angiogram Family History Father CVD (cardiovascular disease) Mother Lung cancer Social History Household Members: Spouse Housing: House Are you a primary summer child caregiver to a significant other at home: No Do you presently have visiting nurse or other home services: No Patient Tobacco Use Status: Former Tobacco user Quit Date: Tobacco use type: Cigarette Assessment & Plan Assessment & Plan (1) Lumbar stenosis with neurogenic claudication: Code(s): M48.062 - Spinal stenosis, lumbar region with neurogenic claudication (2) Status post lumbar surgery: Code(s): Z98.890 - Other specified postprocedural states Plan Procedure: L3-4, L4-5 Laminotomy, Partial facetectomy and foraminotomy Spencer comes in today for his 2nd postoperative visit. He reports that he continues to do very well since his surgery and reports continued resolution of his posterior thigh pain. He states he has been completing all of his regular activities that he is to engage in prior to surgery. He does report that he has some intermittent tenderness/pain in his right hip, however he attributes this to his previous hip replacement. We did discuss how we could always see him in the future if this pain persists to discuss if it is related to a neurological impingement. Overall he feels well, and has no complaints today. No neurological deficits. Sensation grossly intact. Patient is able to ambulate well, rises from a seated position without difficulty. Incision site is closed, well healed, with no signs of drainage. There is no need for continued routine follow-up with Spencer. He is doing very well. I answered all of his questions. He may be discharged as a patient. Vikram Baltazar MD,PhD [facility] Coding Level of Care Code Global (46062) Diagnoses Lumbar stenosis with neurogenic claudication M48.062 Status post lumbar surgery Z98.890
== END 2024-01-16 09:07 | disposition home or self-care (01) ==
PROVIDERS: PCP Internal Medicine Medical Oncology; Visit Provider Physician Assistant
DX: M48.062 Spinal stenosis, lumbar region with neurogenic claudication (principal); Z98.890 Other specified postprocedural states
CPT/HCPCS: 99024

== ENCOUNTER → 2024-01-16 08:51 | Outpatient (BNVA) | payer OTHER, SELFPAY | PROVIDERS: PCP Internal Medicine Medical Oncology; Visit Provider Physician Assistant | DX: Z47.89 Encounter for other orthopedic aftercare (principal); M48.062 Spinal stenosis, lumbar region with neurogenic claudication; Z98.890 Other specified postprocedural states | CPT/HCPCS: 99212 ==

== ENCOUNTER 2024-02-07 14:36 | Outpatient (REF) | payer OTHER, SELFPAY ==
--- NOTE | ~2024-02-07 | US_ITS ---
EXAMINATION: US NA complete, US arterial duplex LE BI CLINICAL INFORMATION: Peripheral vascular disease, unspecified COMPARISON: Arterial duplex lower extremity 07/17/2023. TECHNIQUE: Ankle pulse volume recordings, ankle pressure measurements and ankle brachial indices were obtained of the lower extremity arterial system bilaterally in addition to duplex Doppler techniques with wave form analysis and measurement of velocities in the common femoral, profunda femoral, superficial femoral, popliteal, tibial and peroneal arteries. The study was performed only at rest. FINDINGS: RIGHT LE. THE RIGHT ANKLE-BRACHIAL INDEX IS: 1.06, previously 0.92 2. SEGMENTAL PRESSURES (mmHg): Ankle: PT 87, DP 115 3. PVR WAVEFORMS: Ankle: Abnormal 4. DIRECT DUPLEX: Common femoral artery: 139.2 cm/s, biphasic Profunda femoris artery: 31.5 cm/s, monophasic Superficial femoral artery (proximal): 149.9 cm/s, biphasic [place] inflow artery: PSV 113.1 cm/s. Biphasic waveform. Proximal stent: PSV 112.5 cm/s. Biphasic waveform. Mid stent: PSV 102.8 cm/s. Biphasic waveform. Distal stent: PSV 87.3 cm/s. Biphasic waveform. [place] outflow artery: PSV 92.6 cm/s. Biphasic waveform. Proximal Popliteal artery: 133.3 cm/s, biphasic Distal popliteal artery: 90.6 cm/s, biphasic Mid posterior tibial artery: 67.5 cm/s, biphasic Peroneal artery: 36.8 cm/s, biphasic LEFT LE. THE LEFT ANKLE-BRACHIAL INDEX IS: 0.72, previously 0.55 2. SEGMENTAL PRESSURES: Ankle: PT 57, DP 79 3. PVR WAVEFORMS: Ankle: Abnormal 4. DIRECT DUPLEX: Common femoral artery: 58.8 cm/s, biphasic Profunda femoris artery: 47.7 cm/s, monophasic Superficial femoral artery (proximal): 67.4 cm/s, biphasic Superficial femoral artery (mid): 48.2 cm/s, monophasic Superficial femoral artery (distal): 50.2 cm/s, monophasic Collateral distal superficial femoral artery: 45.1 cm/sec, monophasic. Proximal Popliteal artery: 50 cm/s, monophasic Distal popliteal artery: 73.3 cm/s, monophasic Mid posterior tibial artery: 21.9 cm/s, monophasic Peroneal artery: 18.1 cm/s, monophasic US/US arterial duplex LE BI IMPRESSION: RIGHT LEG: Normal ankle brachial index. Patent right lower extremity arterial stent without evidence of hemodynamically significant stenosis. LEFT LEG: Moderate peripheral arterial disease with monophasic waveforms in the left lower extremity beginning at the level of the mid superficial femoral artery.
--- NOTE | ~2024-02-07 | US_ITS ---
EXAMINATION: US NA complete, US arterial duplex LE BI CLINICAL INFORMATION: Peripheral vascular disease, unspecified COMPARISON: Arterial duplex lower extremity 07/17/2023. TECHNIQUE: Ankle pulse volume recordings, ankle pressure measurements and ankle brachial indices were obtained of the lower extremity arterial system bilaterally in addition to duplex Doppler techniques with wave form analysis and measurement of velocities in the common femoral, profunda femoral, superficial femoral, popliteal, tibial and peroneal arteries. The study was performed only at rest. FINDINGS: RIGHT LE. THE RIGHT ANKLE-BRACHIAL INDEX IS: 1.06, previously 0.92 2. SEGMENTAL PRESSURES (mmHg): Ankle: PT 87, DP 115 3. PVR WAVEFORMS: Ankle: Abnormal 4. DIRECT DUPLEX: Common femoral artery: 139.2 cm/s, biphasic Profunda femoris artery: 31.5 cm/s, monophasic Superficial femoral artery (proximal): 149.9 cm/s, biphasic [place] inflow artery: PSV 113.1 cm/s. Biphasic waveform. Proximal stent: PSV 112.5 cm/s. Biphasic waveform. Mid stent: PSV 102.8 cm/s. Biphasic waveform. Distal stent: PSV 87.3 cm/s. Biphasic waveform. [place] outflow artery: PSV 92.6 cm/s. Biphasic waveform. Proximal Popliteal artery: 133.3 cm/s, biphasic Distal popliteal artery: 90.6 cm/s, biphasic Mid posterior tibial artery: 67.5 cm/s, biphasic Peroneal artery: 36.8 cm/s, biphasic LEFT LE. THE LEFT ANKLE-BRACHIAL INDEX IS: 0.72, previously 0.55 2. SEGMENTAL PRESSURES: Ankle: PT 57, DP 79 3. PVR WAVEFORMS: Ankle: Abnormal 4. DIRECT DUPLEX: Common femoral artery: 58.8 cm/s, biphasic Profunda femoris artery: 47.7 cm/s, monophasic Superficial femoral artery (proximal): 67.4 cm/s, biphasic Superficial femoral artery (mid): 48.2 cm/s, monophasic Superficial femoral artery (distal): 50.2 cm/s, monophasic Collateral distal superficial femoral artery: 45.1 cm/sec, monophasic. Proximal Popliteal artery: 50 cm/s, monophasic Distal popliteal artery: 73.3 cm/s, monophasic Mid posterior tibial artery: 21.9 cm/s, monophasic Peroneal artery: 18.1 cm/s, monophasic US/US NA complete IMPRESSION: RIGHT LEG: Normal ankle brachial index. Patent right lower extremity arterial stent without evidence of hemodynamically significant stenosis. LEFT LEG: Moderate peripheral arterial disease with monophasic waveforms in the left lower extremity beginning at the level of the mid superficial femoral artery.
== END 2024-02-07 14:37 | disposition home or self-care (01) ==
LOC: HO.US 14:36
PROVIDERS: PCP Internal Medicine Medical Oncology; Visit Provider Surgery Vascular Surgery
DX: I73.9 Peripheral vascular disease, unspecified (principal)
CPT/HCPCS: 93923; 93925

== ENCOUNTER 2024-02-19 08:20 | Outpatient (REF) | payer MEDICARE, SELFPAY ==
[2024-02-19 11:39] LABS: MANUAL DIFF FLAG NO
[2024-02-19 11:42] LABS: Basophils Absolute Auto 0.1 X10*3/uL (0.0-0.2); Basophils Percent Auto 1.6 % (0-2); Eosinophils Absolute Auto 0.4 X10*3/uL (0.0-0.4); Eosinophils Percent Auto 8.1 % (0-4); Hematocrit 38.6 % (42.0-52.0); Hemoglobin 12.9 g/dl (14.0-18.0); Imm Gran Abs Auto 0.02 X10*3/uL (0.00-0.03); Imm Gran Pct Auto 0.5 % (0.0-0.4); Lymphocytes Absolute Auto 1.4 X10*3/uL (1.2-4.9); Lymphocytes Percent Auto 30.6 % (20-40); Mean Corpuscular HGB Conc 33.4 g/dl (31.0-36.0); Mean Corpuscular Hemoglobin 33.1 pg (27.0-33.0); Mean Platelet Volume 9.4 fL (9.4-12.4); Monocytes Absolute Auto 0.5 X10*3/uL (0.1-1.2); Monocytes Percent Auto 12.2 % (2-11); Neutrophils Absolute Auto 2.1 x10*3/uL (2.0-8.3); Platelet Count 279 X10*3/uL (160-400); Red Cell Distribution Width 13.2 % (11.0-16.0); White Blood Count 4.4 X10*3/uL (4.8-10.8)
[2024-02-19 12:30] LABS: Alanine Aminotransferase 17 U/L (0-40); Albumin Level 3.9 g/dL (3.5-5.0); Alkaline Phosphatase 85 U/L (39-117); Anion Gap 12 (12-20); Aspartate Amino Transferase 20 U/L (5-37); Bilirubin Total 0.8 mg/dL (0.0-1.0); Blood Urea Nitrogen 43 mg/dL (9-16); Calcium 9.6 mg/dL (8.4-10.2); Carbon Dioxide 26 mmol/L (22-29); Chloride 105 mmol/L (96-108); Cholesterol 124 mg/dL (<200); Estimated Glomerular Filt Rate 43; Glucose Fasting 106 mg/dL (60-99); HDL Cholesterol 52 mg/dL (>40); LDL Cholesterol Calculated 59 mg/dL (<100); Potassium 4.5 mmol/L (3.3-5.1); Sodium 138 mmol/L (135-145); Total Protein 6.9 g/dL (6.5-8.0); Triglycerides 69 mg/dL (<150)
== END 2024-02-19 08:21 | disposition home or self-care (01) ==
LOC: HO.WFDLDS 08:20
PROVIDERS: Visit Provider Internal Medicine Medical Oncology
DX: E78.5 Hyperlipidemia, unspecified (principal); E66.3 Overweight
CPT/HCPCS: 36415; 80053; 80061; 85025

== ENCOUNTER 2024-03-18 14:51 | Outpatient (AMB) | payer OTHER, SELFPAY ==
--- NOTE | 2024-03-18 14:56 | A.OFFVIS_ITS ---
Intake Visit Reasons: Follow Up 02/06 Arterial US Intake Note: Patient presents for follow up s/p 02/06 arterial US. States he does not have any complaints. Accompanied by: Self / Same As Patient Allergies oxycodone [From PERCOCET] Allergy (Severe, Verified 03/18/24 14:58) HEADACHE/DIAPHORESIS/NAUSEA HPI HPI Follow Up 02/06 Arterial US: Details: Very pleasant 78-year-old gentleman presents for routine arterial surveillance follow-up. Of note in the interim he has had back surgery by Dr. Wally walters. He reports a significant improvement in his lower extremities. Now presents for follow-up with noninvasive arterial testing. [facility], LAT[facility] Medical History PONV (postoperative nausea and vomiting) Pulmonary emphysema Dyspnea on exertion COPD (chronic obstructive pulmonary disease) CAD (coronary artery disease) HTN (hypertension) Hyperlipidemia PAD (peripheral artery disease) Hypercholesteremia Surgical History H/O cardiac catheterization Stented coronary artery Hx of colonoscopy Hx of inguinal hernia repair Hx of appendectomy History of hip surgery History of femoral angiogram Family History Father CVD (cardiovascular disease) Mother Lung cancer Social History Household Members: Spouse Housing: House Are you a primary skin care therapist to a significant other at home: No Do you presently have visiting nurse or other home services: No Patient Tobacco Use Status: Former Tobacco user Quit Date: Tobacco use type: Cigarette Review of Systems Const All systems reviewed & are unremarkable except as noted in HPI and below Reports no additional complaints ENT Reports Normal hearing present Card Denies chest pain, Denies chest pain at rest, Denies chest pain with activity and Denies pedal edema Resp Denies cough GI Denies abdominal pain Musc Denies abnormal gait, Denies muscle cramps and Denies radiating pain into limb Skin/Breast Denies skin ulcer and Denies wounds Neuro Reports Normal hearing present and Denies abnormal gait Psych Reports no additional complaints Physical Exam Const General: cooperative, healthy appearing and comfortable Orientation/consciousness: oriented to person, oriented to place and oriented to time HEENT Head: Yes normal to inspection Neck Neck: Yes normal visual inspection Carotids: no bruits Chest Chest palpation & inspection: normal inspection of the chest Resp Effort & Inspection: normal respiratory effort and able to speak in complete sentences Auscultation: clear to auscultation bilaterally, no crackles, no rales, no rhonchi and no wheezes Cardio Other: Bilateral DP signals Rate: regular rate Rhythm: regular rhythm Heart sounds: S1 normal heart sound present and S2 normal heart sound present Bruits: no carotid bruits GI Inspection: Yes normal to inspection Skin Wounds: no wounds Hair: normal Neuro General: oriented to person, oriented to place and oriented to time Cranial nerves: Yes CN's II-XII intact bilaterally and Yes Normal hearing present Cognition (Neuro): normal cognition Motor exam (neuro): 5/5 motor strength present throughout Extrem Other: venous exam: No significant superficial varicosities or spider telangiectasias, minimal edema General: No clubbing, No cyanosis and No edema Psych Appearance: grossly normal Mental Status: mental status grossly normal Speech and movement: Normal speech and movement present Results Reviewed Results Reviewed: Noninvasive arterial testing demonstrates NA on the right of 1.06 and on the left of 0.72. Written report and images were reviewed Assessment & Plan Assessment & Plan (1) PAD (peripheral artery disease): Comment: 04/04/2023- right SFA atherectomy and stent placement 04/13/2021- angioplasty right peroneal and popliteal artery, angioplasty and stent of right SFA 06/2018 Left fem endarterectomy Right superficial fem artery atherectomy and angioplasty Right atherectomy and balloon angioplasty of the popliteal & superficial arteries and peroneal artery. 12/19/2017 Code(s): I73.9 - Peripheral vascular disease, unspecified Category: Medical Plan: In short patient has stable claudication. I did review the pathophysiology of peripheral vascular disease with the patient. In addition we did discuss routine conservative measures including a healthy diet and the importance of exercise and ambulation. We did discuss risk factor modification. The patient will continue to to follow-up with surveillance follow-up in approximately 1 ye ar. Thank you for allowing us to participate in this patient's care. If there are any questions or concerns please do not hesitate to contact us. Orders: Orders US arterial duplex LE BI 1 Year I73.9 - Peripheral vascular disease, unspecified Coding Level of Care Code Est Pt Level 4 (88720) Diagnoses PAD (peripheral artery disease) I73.9
== END 2024-03-18 15:21 | disposition home or self-care (01) ==
PROVIDERS: PCP Internal Medicine Medical Oncology; Visit Provider Surgery Vascular Surgery
DX: I73.9 Peripheral vascular disease, unspecified (principal)
CPT/HCPCS: 99213

== ENCOUNTER → 2024-03-18 14:51 | Outpatient (BNVA) | payer OTHER, SELFPAY | PROVIDERS: PCP Internal Medicine Medical Oncology; Visit Provider Surgery Vascular Surgery | DX: I73.9 Peripheral vascular disease, unspecified (principal); Z95.820 Peripheral vascular angioplasty status with implants and grafts | CPT/HCPCS: 99212 ==

== ENCOUNTER 2024-04-21 07:55 | Outpatient (REF) | payer OTHER, SELFPAY ==
[2024-04-21 11:31] LABS: MANUAL DIFF FLAG NO
[2024-04-21 11:35] LABS: Basophils Absolute Auto 0.1 X10*3/uL (0.0-0.2); Basophils Percent Auto 1.1 % (0-2); Eosinophils Absolute Auto 0.4 X10*3/uL (0.0-0.4); Eosinophils Percent Auto 6.9 % (0-4); Imm Gran Abs Auto 0.01 X10*3/uL (0.00-0.03); Imm Gran Pct Auto 0.2 % (0.0-0.4); Lymphocytes Absolute Auto 1.6 X10*3/uL (1.2-4.9); Lymphocytes Percent Auto 31.2 % (20-40); Mean Corpuscular HGB Conc 33.3 g/dl (31.0-36.0); Mean Corpuscular Hemoglobin 33.2 pg (27.0-33.0); Mean Corpuscular Volume 99.7 fL (80.0-98.0); Mean Platelet Volume 9.8 fL (9.4-12.4); Monocytes Absolute Auto 0.6 X10*3/uL (0.1-1.2); Monocytes Percent Auto 10.9 % (2-11); Neutrophils Absolute Auto 2.6 x10*3/uL (2.0-8.3); Neutrophils Percent Auto 49.7 % (45-73); Platelet Count 297 X10*3/uL (160-400); Red Blood Count 3.91 X10*6/uL (4.60-5.80); Red Cell Distribution Width 12.8 % (11.0-16.0); White Blood Count 5.2 X10*3/uL (4.8-10.8)
[2024-04-21 12:08] LABS: Alanine Aminotransferase 18 U/L (0-40); Albumin Level 3.9 g/dL (3.5-5.0); Alkaline Phosphatase 96 U/L (39-117); Anion Gap 8 (12-20); Aspartate Amino Transferase 21 U/L (5-37); Bilirubin Total 0.4 mg/dL (0.0-1.0); Blood Urea Nitrogen 35 mg/dL (9-16); Carbon Dioxide 29 mmol/L (22-29); Chloride 104 mmol/L (96-108); Cholesterol 123 mg/dL (<200); Estimated Glomerular Filt Rate 47; Glucose Fasting 92 mg/dL (60-99); HDL Cholesterol 51 mg/dL (>40); LDL Cholesterol Calculated 60 mg/dL (<100); Potassium 4.3 mmol/L (3.3-5.1); Sodium 137 mmol/L (135-145); Triglycerides 61 mg/dL (<150)
[2024-04-21 12:16] LABS: Cholesterol 122 mg/dL (<200); HDL Cholesterol 52 mg/dL (>40); LDL Cholesterol Calculated 58 mg/dL (<100); Triglycerides 60 mg/dL (<150)
[2024-04-21 12:30] LABS: Prostate Specific Antigen 3.57 ng/mL (<0.05-4.0)
[2024-04-22 09:22] LABS: CRP High Sensitivity <0.2 mg/L
== END 2024-04-21 07:56 | disposition home or self-care (01) ==
LOC: HO.WFDLDS 07:55
PROVIDERS: Internal Medicine Medical Oncology; Visit Provider Internal Medicine Cardiovascular Disease
DX: E78.5 Hyperlipidemia, unspecified (principal); I25.10 Atherosclerotic heart disease of native coronary artery without angina pectoris; Z12.5 Encounter for screening for malignant neoplasm of prostate
CPT/HCPCS: 36415; 80053; 80061; 84153; 85025; 86141

== ENCOUNTER 2024-05-01 09:37 | Outpatient (AMB) | payer OTHER, SELFPAY ==
[2024-05-01 09:39] VITALS: BP 140/62; PULSE 51; BMI 26.3
--- NOTE | 2024-05-01 09:39 | MHC.OFFVIS ---
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 He is limited in walking currently because of his back pain. His claudication symptoms have improved. He denies any exertional chest pain with current activity level. Takes all his medications. LDL is well optimized. Notices blood pressure can be variable occasionally 110 systolic range and most of the time otherwise in 140 systolic range. Today's blood pressure is 140. His lisinopril was recently increased from 10-20 mg. He denies any lightheadedness, syncope. Denies any prolonged palpitations irregular heartbeat. Denies any heart failure symptoms. [facility] Medical History PONV (postoperative nausea and vomiting) Pulmonary emphysema Dyspnea on exertion COPD (chronic obstructive pulmonary disease) CAD (coronary artery disease) HTN (hypertension) Hyperlipidemia PAD (peripheral artery disease) Hypercholesteremia Surgical History H/O cardiac catheterization Stented coronary artery Hx of colonoscopy Hx of inguinal hernia repair Hx of appendectomy History of hip surgery History of femoral angiogram Family History Father CVD (cardiovascular disease) Mother Lung cancer Social History Household Members: Spouse Housing: House Are you a primary director day care center to a significant other at home: No Do you presently have visiting nurse or other home services: No Patient Tobacco Use Status: Former Tobacco user Tobacco use type: Cigarette Review of Systems Const Denies chills, Denies fatigue, Denies fever(s), Denies frequent falls, Denies weakness, Denies weight gain and Denies weight loss ENT Denies dizziness Card Denies chest pain, Denies leg edema, Denies lightheadedness, Denies palpitations, Denies dyspnea, Denies dyspnea on exertion, Denies orthopnea and Denies other (loss of consciousness) Resp Denies cough, Denies dyspnea and Denies dyspnea on exertion GI Denies hematochezia and Denies change in stool character Musc Denies abnormal gait, Denies muscle weakness, Denies numbness, Denies radiating pain into limb and Denies tingling Neuro Denies abnormal gait, Denies dizziness, Denies frequent falls, Denies numbness, Denies tingling and Denies weakness Endo Denies fatigue and Denies palpitations Physical Exam Vital Signs: Last Vital Signs Pulse 51 05/01/24 09:39 BP 140/62 H 05/01/24 09:39 BMI result Body Mass Index 26.3 Const General: cooperative, comfortable, no acute distress, alert and awake Nutritional Appearance: overweight Orientation/consciousness: patient oriented x3 Limitations: no limitations Neck Neck: Yes trachea midline, Yes supple and Yes no JVD Carotids: no bruits Resp Effort & Inspection: normal respiratory effort Auscultation: clear to auscultation bilaterally and diminished lung sounds Cardio Jugular venous distension: no JVD Palpation: normal PMI Rate: regular rate Rhythm: regular rhythm Heart sounds: S1 normal heart sound present and S2 normal heart sound present Skin General skin exam: other (Chronic sun damage) Neuro General: patient oriented x3 and no focal motor deficits Extrem General: Yes no clubbing, cyanosis or edema Psych Appearance: grossly normal Office Procedures EKG Details: EKG shows sinus bradycardia otherwise normal EKG at 51 beats per minute [id number], Complete Assessment & Plan Assessment & Plan (1) CAD (coronary artery disease): Code(s): I25.10 - Atherosclerotic heart disease of [place] coronary artery without angina pectoris Category: Medical Plan: CAD with remote stenting of the RCA for symptoms angina. Currently having no symptoms of angina at current workload, limited due to his back pain. He has not having any symptoms of significant claudication. Currently on dual antiplatelet therapy, being managed by vascular surgery. Once he is off Plavix consider switching him to low-dose oral anticoagulation therapy with Xarelto as per multiple trials which has shown reduce limb loss events as well as cerebrovascular events. Continue aggressive risk factor modification. Lifelong aspirin therapy is advised. Continue aggressive blood pressure control, see below. Target goal blood pressure ideally less than 130/84. LDL is currently well optimized encouraged to continue to participate in physical activity as tolerated. Advised to call me with any new symptoms. (2) HTN (hypertension): Code(s): I10 - Essential (primary) hypertension Category: Medical Plan: Hypertension with labile blood pressure which is not unexpected in patient with diffuse atherosclerotic disease. This can be an issue management. I would suggest to split his lisinopril to 10 mg b.i.d. for better [id number] control as well as avoidance of precipitous drop in blood pressure with taking 20 mg at 1 time. Advised to maintain adequate hydration. Low-salt diet was discussed. Will follow up in the clinic in 1 year's time, sooner p.r.n.. Thank you for allowing me to partake in his care Coding Level of Care Code Est Pt Level 4 (07670) Diagnoses CAD (coronary artery disease) I25.10 HTN (hypertension) I10 CPT Codes EKG - CPT: [id number], Complete ([id number])
== END 2024-05-01 10:05 | disposition home or self-care (01) ==
PROVIDERS: PCP Internal Medicine Medical Oncology; Visit Provider Internal Medicine Cardiovascular Disease
DX: I25.10 Atherosclerotic heart disease of native coronary artery without angina pectoris (principal); I10 Essential (primary) hypertension
CPT/HCPCS: 93010; 99214

== ENCOUNTER → 2024-05-01 09:37 | Outpatient (BNVA) | payer OTHER, SELFPAY | PROVIDERS: PCP Internal Medicine Medical Oncology; Visit Provider Internal Medicine Cardiovascular Disease | DX: I25.10 Atherosclerotic heart disease of native coronary artery without angina pectoris (principal); I10 Essential (primary) hypertension | CPT/HCPCS: 93005; 99212 ==

== ENCOUNTER 2024-05-12 14:54 | Outpatient (AMB) | payer OTHER, SELFPAY ==
--- NOTE | 2024-05-12 15:01 | A.SPINEOV_ITS ---
Intake Visit Reasons: recurring pain after surgery Intake Note: Mr. Price is here today for recurring pain after surgery. Publicist Required: No Allergies oxycodone [From PERCOCET] Allergy (Severe, Verified 05/12/24 15:02) HEADACHE/DIAPHORESIS/NAUSEA Assessment & Plan Assessment & Plan (1) Lumbago: Code(s): M54.50 - Low back pain, unspecified Category: Medical Plan Spencer is a pleasant 78-year-old male who comes in today to discuss his low back pain. He describes it as axial low back pain and runs his hands directly across the small of his back when discussing it. He reports that since his surgery, he had resolution of his leg pains, but has been left with residual back pain. This pain has worsened over the course of the last couple of months, and he is concerned that he may need some kind of corrective surgery which she had previously discussed with Dr. Baltazar. After reviewing the first office visit note with Dr. Baltazar it appears the next step was to consider scoliosis correction if the pain persists or if back pain develops. On examination Spencer has 5/5 strength in his upper and lower extremities. His reflexes are 2+ intact. He has no sensational deficits. Again, he runs his hands over the small of his back when describing his pain. He ambulates well but does have notable kyphosis and does slightly hunch over when ambulating. I will be sending Spencer for a set of flexion/extension x-rays to ensure that no further instability has occurred over the last few months. If his x-ray imaging does not show any acute abnormalities I would like to send him for a lumbar MRI to evaluate for any neuroanatomical changes since his surgery. I will be having Spencer follow up with Dr. Baltazar after his imaging is complete. Vikram Baltazar MD,PhD [facility] Orders: Orders XR lumbar spine 4V min Today M54.50 - Low back pain, unspecified MR lumbar spine wo con Today M54.50 - Low back pain, unspecified Coding Level of Care Code Global (09582) Diagnoses Lumbago M54.50
== END 2024-05-12 16:42 | disposition home or self-care (01) ==
PROVIDERS: PCP Internal Medicine Medical Oncology; Visit Provider Physician Assistant
DX: M54.50 Low back pain, unspecified (principal)
CPT/HCPCS: 99213

== ENCOUNTER 2024-05-12 14:54 | Outpatient (REF) | payer OTHER, SELFPAY ==
--- NOTE | ~2024-05-12 | XR_ITS ---
EXAMINATION: XR LUMBOSACRAL SPINE WITH OBLIQUES CLINICAL INFORMATION: Low back pain. COMPARISON: 08/08/2023 x-rays, 06/07/2023 MRI lumbar spine. TECHNIQUE: 4 views of the lumbar spine. FINDINGS: Dextroscoliosis of the lumbar spine. Diffuse demineralization. Right total hip prosthesis partially imaged. Atherosclerotic aortoiliac calcifications. Advanced multilevel lumbar spondylosis with marked loss of disc space height most notable at L2-L3 and L3-L4. Advanced facet arthritis in the thoracolumbar spine. Grade 1 anterolisthesis persisting on flexion and extension views of L4 with respect to what will be referred to as L5 for the purposes of this report and as referred to on prior imaging studies. XR/XR lumbar spine 4V min IMPRESSION: Advanced multilevel lumbar spondylosis.
== END 2024-05-12 14:55 | disposition home or self-care (01) ==
LOC: HO.HOSX 14:54
PROVIDERS: PCP Internal Medicine Medical Oncology; Visit Provider Physician Assistant
DX: M54.50 Low back pain, unspecified (principal)
CPT/HCPCS: 72110; 99212

== ENCOUNTER 2024-05-27 13:17 | Outpatient (REF) | payer OTHER, SELFPAY ==
--- NOTE | ~2024-05-27 | MR_ITS ---
EXAMINATION: MR LUMBAR SPINE WITHOUT CONTRAST CLINICAL INFORMATION: Low back pain, lumbar radiculopathy COMPARISON: MRI lumbar spine on 06/07/2023 TECHNIQUE: MRI of the lumbar spine was obtained using routine sequences without contrast. FINDINGS: T9-T10 and T10-T11 moderate degenerative thoracic disc disease, mild posterior disc protrusions are seen. The visualized lumbar vertebrae are intact with moderate L2-L3 dextroscoliosis and moderate L4-L5 levoscoliosis. No focal bone lesion with abnormal signal can be seen. Evaluation of the intervertebral discs show: T12/L1: Intervertebral disc height is normal, with normal T2 signal. No focal disc herniation is seen. Bilateral T12/L1 neuroforamina are patent. Bilateral apophyseal joints are intact with normal alignment. L-1/L-2: Intervertebral disc height is mildly decreased, with mild loss of T2 signal. Mild posterior disc protrusion is seen. Unchanged mild right and moderate left L1-L2 neuroforamina stenosis is seen. Bilateral apophyseal joints are intact with normal alignment. Bilateral apophyseal joints show loss of joint space, sclerosis, facet hypertrophy and osteophytosis. L2/L3: Intervertebral disc height is markedly decreased, with marked loss of T2 signal in the left half. Moderate posterior and left foraminal disc protrusion is seen. Unchanged severe left and mild right L2-L3 neuroforamina stenosis is seen. Bilateral apophyseal joints are intact with normal alignment. Bilateral apophyseal joints show loss of joint space, sclerosis, facet hypertrophy and osteophytosis. L3/L4: Intervertebral disc height is markedly decreased, with mild loss of T2 signal. Mild posterior and asymmetric left foraminal osteophyte disc complex protrusion is seen. Unchanged severe left and mild right L3-L4 neuroforamina stenosis is seen. Bilateral apophyseal joints are intact with normal alignment. Bilateral apophyseal joints show loss of joint space, sclerosis, facet hypertrophy and osteophytosis. L4/L5: There is anterior L4 on L5 displacement by 0.4 cm, with associated exposure of intervertebral disc. Intervertebral disc height is moderately decreased, with moderate loss of T2 signal. Moderate bilateral foraminal disc protrusion is seen. Unchanged severe right and marked left L4-L5 neuroforamina stenosis is present. There is persistent moderate spinal stenosis with additional impingement by hypertrophic ligamentum flavum. Bilateral apophyseal joints are intact with normal alignment. Bilateral apophyseal joints show joint effusion, sclerosis, facet hypertrophy and osteophytosis. L5/S1: There is marked anterior L5 on S1 displacement by 0.7 cm, with exposure of intervertebral disc. Intervertebral disc height is markedly decreased, with marked loss of T2 signal. Marked posterior and asymmetric left foraminal disc protrusion is seen. Bilateral L5-S1 neuroforamina are moderately stenosed. There is marked spinal stenosis due to additional impingement by hypertrophic ligamentum flavum. Bilateral apophyseal joints are intact with normal alignment. Bilateral apophyseal joints show joint effusion, sclerosis, facet hypertrophy and osteophytosis. Conus medullaris is seen normally at L1 level. A large T2 hyperintense simple cyst measuring 5.1 cm in diameter and adjacent medial 1.7 cm simple cyst are seen in superior right renal pole, for which no follow up imaging is recommended. MR/MR lumbar spine wo con IMPRESSION: 1. Unchanged Moderate L2-L3 dextroscoliosis and moderate L4-L5 levoscoliosis. 2. Unchanged Marked L5-S1 and moderate L4-L5 spinal stenosis due to combination of anterolisthesis, intervertebral disc exposure and protrusion, facet arthropathy and hypertrophic ligamentum flavum. 3. Unchanged multilevel advanced lumbar spondylosis and posterior disc protrusions from L1-L2 to L5-S1. 4. Unchanged mild right and moderate left L1-L2, severe left and mild right L2-L3, severe left and mild right L3-L4, severe right and marked left L4-L5 and moderate bilateral L5-S1 neuroforamina stenosis. 5.
== END 2024-05-27 13:18 | disposition home or self-care (01) ==
LOC: HO.MRI 13:17
PROVIDERS: PCP Internal Medicine Medical Oncology; Visit Provider Physician Assistant
DX: M54.50 Low back pain, unspecified (principal)
CPT/HCPCS: 72148

== ENCOUNTER 2024-07-09 15:07 | Outpatient (AMB) | payer OTHER, SELFPAY ==
--- NOTE | 2024-07-09 15:12 | HO.SPINEOV ---
Intake Visit Reasons: MRI f/u Intake Note: Mr. Price is here today to f/u on the results to MRI. 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: No Allergies oxycodone [From PERCOCET] Allergy (Severe, Verified 05/12/24 15:02) HEADACHE/DIAPHORESIS/NAUSEA Assessment & Plan Assessment & Plan (1) Scoliosis due to degenerative disease of spine in adult patient: Code(s): M41.50 - Other secondary scoliosis, site unspecified Category: Medical (2) Lumbar stenosis with neurogenic claudication: Code(s): M48.062 - Spinal stenosis, lumbar region with neurogenic claudication Category: Medical (3) Spondylolisthesis, lumbar region: Code(s): M43.16 - Spondylolisthesis, lumbar region Category: Medical Plan Dear colleague, On 07/09/2024, I saw Spencer Price for severe back pain with walking and standing that improves when he sits down. The pain is debilitating. 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 Previously had a L3-4 and L4-5 laminotomy done that took care of most of his neurogenic symptoms. He still does have intermittent painful legs with walking and standing. Imaging reviews a lumbar degenerative scoliosis with the apex at L2-3 and L3-4 and a grade 2 L4-5 spondylolisthesis. The MRI also shows T2 hyperintensity of the L4-5 facet joints and residual stenosis due to the lumbar degenerative scoliosis. The L5-S1 segment is also degenerated without signs of nerve compression. We had an extensive discussion of possible surgical treatments and the expected results. The options are to only fuse the L4-5 level to correct the spondylolisthesis or to also address the lumbar degenerative scoliosis with or without the L5-S1 segment. I thought that an L2-L5 minimally invasive correction of the degenerative scoliosis and spondylolisthesis would be the approach with the highest chance of success and would reduce the risk of adjacent degenerative disc disease and more surgeries. I quoted a 65% success rate. My approach would be an oblique lateral lumbar interbody fusion L2-L5, trans Kambin approach due to the fact that an oblique lumbar interbody fusion L4-5 is not possible due to the vasculature. I explained to procedure and possible complications of nerve irritation and expected postoperative course. We spent 45 minutes discussing these points. The patient wants to proceed and he scheduled for 09/17/2024. He already had cardiology clearance from his previous surgery and he was recently evaluated by the functional architect and there were no changes. Therefore new cardiology evaluation is not appropriate. He will see the primary care physician preoperatively. Thank you for letting me take care of your patient. Do not hesitate to call me with any questions or concerns. George Baltazar MD, PhD Spine Fellowship Trained Neurosurgeon Director, [facility] Coding Level of Care Code Est Pt Level 5 (39333) Diagnoses Scoliosis due to degenerative disease of spine in adult patient M41.50 Lumbar stenosis with neurogenic claudication M48.062 Spondylolisthesis, lumbar region M43.16
== END 2024-07-09 16:02 | disposition home or self-care (01) ==
PROVIDERS: PCP Internal Medicine Medical Oncology; Visit Provider Neurological Surgery
DX: M41.50 Other secondary scoliosis, site unspecified (principal); M48.062 Spinal stenosis, lumbar region with neurogenic claudication; M43.16 Spondylolisthesis, lumbar region
CPT/HCPCS: 99215

== ENCOUNTER → 2024-07-09 15:07 | Outpatient (BNVA) | payer OTHER, SELFPAY | PROVIDERS: PCP Internal Medicine Medical Oncology; Visit Provider Neurological Surgery | DX: M48.062 Spinal stenosis, lumbar region with neurogenic claudication (principal); M41.50 Other secondary scoliosis, site unspecified; M43.16 Spondylolisthesis, lumbar region | CPT/HCPCS: 99212 ==

== ENCOUNTER 2024-07-24 08:04 | Outpatient (REF) | payer OTHER, SELFPAY ==
[2024-07-24 11:12] LABS: MANUAL DIFF FLAG NO
[2024-07-24 11:29] LABS: Basophils Absolute Auto 0.1 X10*3/uL (0.0-0.2); Basophils Percent Auto 1.2 % (0-2); Eosinophils Absolute Auto 0.5 X10*3/uL (0.0-0.4); Eosinophils Percent Auto 9.1 % (0-4); Hemoglobin 12.5 g/dl (14.0-18.0); Imm Gran Abs Auto 0.02 X10*3/uL (0.00-0.03); Imm Gran Pct Auto 0.4 % (0.0-0.4); Lymphocytes Absolute Auto 1.4 X10*3/uL (1.2-4.9); Lymphocytes Percent Auto 28.7 % (20-40); Mean Corpuscular HGB Conc 33.8 g/dl (31.0-36.0); Mean Corpuscular Volume 100.5 fL (80.0-98.0); Mean Platelet Volume 9.7 fL (9.4-12.4); Monocytes Absolute Auto 0.6 X10*3/uL (0.1-1.2); Monocytes Percent Auto 12.5 % (2-11); Neutrophils Absolute Auto 2.4 x10*3/uL (2.0-8.3); Neutrophils Percent Auto 48.1 % (45-73); Platelet Count 266 X10*3/uL (160-400); Red Blood Count 3.68 X10*6/uL (4.60-5.80); Red Cell Distribution Width 13.3 % (11.0-16.0)
[2024-07-24 11:57] LABS: Alanine Aminotransferase 13 U/L (0-40); Albumin Level 3.8 g/dL (3.5-5.0); Alkaline Phosphatase 92 U/L (39-117); Anion Gap 10 (12-20); Aspartate Amino Transferase 22 U/L (5-37); Bilirubin Total 0.7 mg/dL (0.0-1.0); Blood Urea Nitrogen 32 mg/dL (9-16); Calcium 9.8 mg/dL (8.4-10.2); Carbon Dioxide 26 mmol/L (22-29); Chloride 106 mmol/L (96-108); Cholesterol 120 mg/dL (<200); Estimated Glomerular Filt Rate 46; Glucose Fasting 94 mg/dL (60-99); HDL Cholesterol 50 mg/dL (>40); LDL Cholesterol Calculated 58 mg/dL (<100); Potassium 4.8 mmol/L (3.3-5.1); Sodium 137 mmol/L (135-145); Total Protein 6.8 g/dL (6.5-8.0); Triglycerides 60 mg/dL (<150)
== END 2024-07-24 08:05 | disposition home or self-care (01) ==
LOC: HO.WFDLDS 08:04
PROVIDERS: Visit Provider Internal Medicine Medical Oncology
DX: E78.5 Hyperlipidemia, unspecified (principal); E66.3 Overweight; N40.0 Benign prostatic hyperplasia without lower urinary tract symptoms; Z12.5 Encounter for screening for malignant neoplasm of prostate
CPT/HCPCS: 36415; 80053; 80061; 84153; 85025

== ENCOUNTER 2024-09-17 06:04 | Inpatient (IN) | payer OTHER, SELFPAY ==
[2024-09-03 10:15] VITALS: BP 103/51; PULSE 66; RESP 18; O2SAT 96; BMI 26.1
--- NOTE | 2024-09-03 10:29 | HO.ANESPROP2 ---
Documented by User: Lily Willis NP 09/09/24 10:07 HPI - Anesthesia Eval Consult details Narrative: 79yo M for L2-3,L3-4,L45 Transkambin Lumbar Interbody Fusion, 09/17/24 No recent illness No CP/SOB with walking and yard work CAD. Follows [facility] [place] Cardiology for CAD with remote stenting of the RCA for symptoms angina. Stable at 04/2024 office visit. PAD. Follows [facility] [place] Vascular. DAPT at time of PAT, but ? if pt needs to continue plavix. Stable at 03/2024 office visit -04/04/2023- right SFA atherectomy and stent placement -04/13/2021- angioplasty right peroneal and popliteal artery, angioplasty and stent of right SFA -06/2018 Left fem endarterectomy -Right superficial fem artery atherectomy and angioplasty -12/19/2017 Right atherectomy and balloon angioplasty of the popliteal & superficial arteries and peroneal artery. COPD: Stable. Does not require inhalers. Has seen [facility] [place] pulmo, but only follows with PCP now PONV: good effect with scop patch PMFSH Active Problems Active Problems: All Active Problems Spondylolisthesis, lumbar region (Acute) Lumbago (Acute) Status post lumbar surgery (Acute) Lumbar stenosis with neurogenic claudication (Acute) Scoliosis due to degenerative disease of spine in adult patient (Acute) Pulmonary emphysema (Acute) Dyspnea on exertion (Acute) COPD (chronic obstructive pulmonary disease) (Acute) CAD (coronary artery disease) (Acute) HTN (hypertension) (Acute) Hyperlipidemia (Acute) PAD (peripheral artery disease) (Acute) Past Medical History Medical History (Updated 09/03/24 @ 10:07 by Trudy Foley RN) Bladder cancer Ascending aorta dilatation PONV (postoperative nausea and vomiting) Pulmonary emphysema Dyspnea on exertion COPD (chronic obstructive pulmonary disease) CAD (coronary artery disease) HTN (hypertension) Hyperlipidemia PAD (peripheral artery disease) Hypercholesteremia Family History Family History Father CVD (cardiovascular disease) Mother Lung cancer Family history of problems with anesthesia: No Surgical History Surgical History (Updated 09/03/24 @ 10:08 by Trudy Foley RN) Hx of bilateral cataract extraction Hx of cystoscopy History of back surgery H/O cardiac catheterization Stented coronary artery Hx of colonoscopy Hx of inguinal hernia repair Hx of appendectomy History of hip surgery History of femoral angiogram History of Problems with Anesthesia: Yes (PONV) Social History Social History Household Members: Spouse Housing: House Are you a primary care aide to a significant other at home: No Do you presently have visiting nurse or other home services: No Patient Tobacco Use Status: Former Tobacco user Tobacco use type: Cigarette Years Smoked: 25 Use of substances other than those prescribed or required for medical reasons: No Have you been hit, kicked, punched, or otherwise hurt by someone within the past year? If so, by whom?: No Spiritual Healthcare Practices: none Baptism Healthcare Practices: Yazidism Cultural Healthcare Practices: none Are you DNR?: No Advance Directives Information Provided: Yes (as above noted-advised to bring copy DOS) Advance Directives on File: No Recently lost weight without trying: No Eating poorly because of decreased appetite: No Nutrition Risks: Surgical patient >75years Poor oral hygiene: No (upper & lower partials) Meds Allergies Allergy/AdvReac Type Severity Reaction Status Date / Time oxycodone [From PERCOCET] Allergy Severe headache/di Verified 09/17/24 06:17 aphoresis/n ausea bee pollen [bee stings] Allergy Intermediate Hives Verified 09/17/24 06:17 Home Medications ?Medication ?Instructions ?Recorded ?Confirmed ?Last Taken ?Type aspirin 81 mg tablet,delayed 81 mg PO QAM 09/23/20 09/17/24 09/10/24 History release (Adult Aspirin Regimen) ezetimibe 10 mg tablet 10 mg PO BEDTIME 09/23/20 09/17/24 09/10/24 History metoprolol succinate 50 mg 50 mg PO BEDTIME 09/23/20 09/17/24 04/04/23 History tablet,extended release 24 hr naproxen 500 mg tablet 500 mg PO QAM Pain 03/27/23 09/17/24 09/10/24 History atorvastatin 40 mg tablet 80 mg PO QAM 10/11/23 09/17/24 09/10/24 History lisinopril 10 1 tab PO BID 09/03/24 09/17/24 Unknown History mg-hydrochlorothiazide 12.5 mg tablet Exam Height,Weight and Vital Signs: Height 5 ft 6 in Weight 73.482 kg Last Vital Signs Pulse 66 09/03/24 10:15 Resp 18 09/03/24 10:15 BP 103/51 L 09/03/24 10:15 Pulse Ox 96 09/03/24 10:15 O2 Del Method Room Air 09/03/24 10:15 Pertinent Lab Results Pertinent Lab Results: Laboratory Tests 07/24/24 08:07 WBC 5.0 Hgb 12.5 L Hct 37.0 L Plt Count 266 Sodium 137 Potassium 4.8 Chloride 106 Carbon Dioxide 26 BUN 32 H Creatinine 1.48 H Narrative Narrative: EKG 04/2024 sinus bradycardia otherwise normal EKG at 51 beats per minute ECHO 2022 Conclusions: - 1. Normal LV systolic function with impaired relaxation filling pattern 2. Trivial aortic regurgitation 3. Normal RV systolic pressure 4. Mildly dilated ascending aorta at 3.9 cm 5. No pericardial effusion Airway Mallampati Class: I TM Dist: >3cm Neck ROM: Full Partial: Upper and Lower Heart: RRR Lungs: CTAB Assessment and Plan Assessment Anesthesia Assessment: Anesthesia Plan Discussed and PAT Visit Final Anesthetic Review Family History of Problems with Anesthesia: No History of Problems with Anesthesia: Yes (PONV) Documented by User: Agnes Bailey MD 09/17/24 07:03 [facility] Past Medical History Medical History (Updated 09/03/24 @ 10:07 by Trudy Foley RN) Bladder cancer Ascending aorta dilatation PONV (postoperative nausea and vomiting) Pulmonary emphysema Dyspnea on exertion COPD (chronic obstructive pulmonary disease) CAD (coronary artery disease) HTN (hypertension) Hyperlipidemia PAD (peripheral artery disease) Hypercholesteremia Family History Family History Father CVD (cardiovascular disease) Mother Lung cancer Surgical History Surgical History (Updated 09/03/24 @ 10:08 by Trudy Foley, ASTON) Hx of bilateral cataract extraction Hx of cystoscopy History of back surgery H/O cardiac catheterization Stented coronary artery Hx of colonoscopy Hx of inguinal hernia repair Hx of appendectomy History of hip surgery History of femoral angiogram Social History Social History Household Members: Spouse Housing: House Are you a primary care aide to a significant other at home: No Do you presently have visiting nurse or other home services: No Patient Tobacco Use Status: Former Tobacco user Tobacco use type: Cigarette Years Smoked: 25 Use of substances other than those prescribed or required for medical reasons: No Have you been hit, kicked, punched, or otherwise hurt by someone within the past year? If so, by whom?: No Spiritual Healthcare Practices: none Baptism Healthcare Practices: Yazidism Cultural Healthcare Practices: none Are you DNR?: No Advance Directives Information Provided: Yes (as above noted-advised to bring copy DOS) Advance Directives on File: No Recently lost weight without trying: No Eating poorly because of decreased appetite: No Nutrition Risks: Surgical patient >75years Poor oral hygiene: No (upper & lower partials) Meds Allergies Allergy/AdvReac Type Severity Reaction Status Date / Time oxycodone [From PERCOCET] Allergy Severe headache/di Verified 09/17/24 06:17 aphoresis/n ausea bee pollen [bee stings] Allergy Intermediate Hives Verified 09/17/24 06:17 Home Medications ?Medication ?Instructions ?Recorded ?Confirmed ?Last Taken ?Type aspirin 81 mg tablet,delayed 81 mg PO QAM 09/23/20 09/17/24 09/10/24 History release (Adult Aspirin Regimen) ezetimibe 10 mg tablet 10 mg PO BEDTIME 09/23/20 09/17/24 09/10/24 History metoprolol succinate 50 mg 50 mg PO BEDTIME 09/23/20 09/17/24 04/04/23 History tablet,extended release 24 hr naproxen 500 mg tablet 500 mg PO QAM Pain 03/27/23 09/17/24 09/10/24 History atorvastatin 40 mg tablet 80 mg PO QAM 10/11/23 09/17/24 09/10/24 History lisinopril 10 1 tab PO BID 09/03/24 09/17/24 Unknown History mg-hydrochlorothiazide 12.5 mg tablet Exam Airway Mallampati Class: I (missing multiple teeth, bottom front 2, denies anything loose) Assessment and Plan Assessment Anesthesia Assessment: Chart Reviewed Final Anesthetic Review NPO: Yes ASA Class: III Final Preanesthetic Review: No Changes in Pt Med Stat, Meds/Allgs Chart Reviewed and Consent Obtained/Reviewed Patient Risk: Intermediate Procedure Risk: Intermediate Anesthetic Plan Anesthetic Plan: GA Disposition: Standard PACU
[2024-09-17] VITALS (18 sets, daily range): BP systolic 107–145; BP diastolic 45–74; PULSE 50–110; RESP 16–22; TEMP 34.5–36.8; O2SAT 93–100; BMI 26.0; BMI 23.0
--- NOTE | ~2024-09-17 | FL_ITS ---
EXAMINATION: FLUOROSCOPY GUIDANCE FOR NEEDLE PLACEMENT CLINICAL INFORMATION: Fluoroscopy in the operating room COMPARISON: None available. TECHNIQUE: Fluoroscopy during posterior lumbar fusion FINDINGS: L2-L5 posterior fusion with intervertebral disc spacers. FLUOROSCOPY TIME: 4.04 minutes DOSE AREA PRODUCT: 32.77 Gy-cm2 (allen-centimeter squared) FL/FL guidance in OR IMPRESSION: Fluoroscopy in the operating room. Please see operative report for additional information. Electronically signed by: Gillian Onofre MD 09/18/2024 12:40 PM [facility]ENDA[facility]O
[2024-09-17] MEDS: Scopolamine 1.5 MG PATCH.TD.3 TRANSDERMA (06:28)
[2024-09-17] MEDS: Gabapentin 300 MG CAPSULE PO ×3 (06:29→21:34)
[2024-09-17] MEDS: methocarbamoL 750 MG TABLET PO (06:29)
[2024-09-17] MEDS: Lactated Ringers 1,000 ML 100 ML IVCONT (06:44)
--- NOTE | 2024-09-17 06:57 | PC.NURSE ---
Med reconciliation complete in preop. Verified with patient that all blood thinning medications (plavix, naproxen, asa) have been held for one week. Patient has continued with one pill daily (last dose yesterday) however, unsure what one it is. Patient believes it was one of the heart medications. Per him I forget what its called . All VS WNL. Dr. Bailey at bedside and made aware.
--- NOTE | 2024-09-17 07:00 | MHC.SHP ---
Pre-Procedural Eval Section A - 24 Hr Update-Section A only Date of Service: 09/17/24 Section B - Complete if H&P > 30 days Chief Complaint: s/p L2-5 transkambin lumbat fusion Allergies: Allergies Allergy/AdvReac Type Severity Reaction Status Date / Time oxycodone [From PERCOCET] Allergy Severe headache/di Verified 09/17/24 06:17 aphoresis/n ausea bee pollen [bee stings] Allergy Intermediate Hives Verified 09/17/24 06:17 Review of Systems Sugical H&P ROS: Negative: Constitution, Cardiovascular, Respiratory, Neurological, Psychiatric, Hem-Onc, Allergic/Immunologic, Gastrointestinal, Genitourinary, Musculoskeletal, Integumentary, Endocrine and Eyes/Ears/Nose/Throat Exam Surgical H&P Exam: Not Evaluated: HEENT, Not Evaluated: Heart, Not Evaluated: Lungs, Not Evaluated: Extremities, Not Evaluated: Abdomen, Not Evaluated: Skin and Not Evaluated: Neurological Exam Comment: Patient is awake, alert, in no acute distress Plan Diagnosis/Plan: Unchanged I have reviewed the history and physical and performed a pertinent physical examination on my patient. No changes have occurred unless specified. Plan remains the same, L2-5 OLLIF Time Spent With Patient Time: Total time managing care of this patient today 15 minutes.
--- NOTE | 2024-09-17 07:19 | PHA.MEDREC ---
Pharmacy Consult ? Medication Reconciliation Pharmacy has completed the medication reconciliation. Reviewed med rec done by nursing
--- NOTE | 2024-09-17 07:25 | MHC.SHP ---
Pre-Procedural Eval Section A - 24 Hr Update-Section A only Date of Service: 09/17/24 Section B - Complete if H&P > 30 days Chief Complaint: s/p L2-5 transkambin lumbat fusion Details of Present Illness: Back pain Allergies: Allergies Allergy/AdvReac Type Severity Reaction Status Date / Time oxycodone [From PERCOCET] Allergy Severe headache/di Verified 09/17/24 06:17 aphoresis/n ausea bee pollen [bee stings] Allergy Intermediate Hives Verified 09/17/24 06:17 Review of Systems Sugical H&P ROS: Negative: Constitution, Cardiovascular, Respiratory, Neurological, Psychiatric, Hem-Onc, Allergic/Immunologic, Gastrointestinal, Genitourinary, Musculoskeletal, Integumentary, Endocrine and Eyes/Ears/Nose/Throat Exam Surgical H&P Exam: Normal: HEENT, Normal: Heart, Normal: Lungs, Normal: Extremities, Normal: Abdomen, Normal: Skin and Normal: Neurological (Awake, alert) Plan Diagnosis/Plan: Unchanged I have reviewed the history and physical and performed a pertinent physical examination on my patient. No changes have occurred unless specified. L2-L5 oblique lateral lumbar interbody fusion, trans Kambin approach Time Spent With Patient Time: Total time managing care of this patient today ____ minutes.
--- NOTE | 2024-09-17 10:25 | P.OP_ITS ---
Operative Note Operative Note Date of Service: 09/17/24 Narrative: Preoperative diagnosis: 1) lumbar degenerative scoliosis 2) low back pain Postprocedure diagnosis: 1) same as above Procedure: 1) health 3, L3-4 and L4-5 oblique lateral lumbar interbody fusion with discectomy, preparation of the endplates and placement of a titanium bullet cage packed with allograft, anterior to the transverse process in modified prone position, with intraoperative biplanar fluoroscopy imaging and electrophysiological monitoring 2) L2-L5 posterior minimally invasive pedicle screw placement and posterior lateral instrumentation and fusion with intraoperative biplanar fluoroscopic imaging and electrophysiological monitoring 3 injection of 10 cc of Exparel at the bilateral L3 transverse process for a muscular erector spinae block and additional Exparel in paravertebral tissue for postop management Consent Informed Consent was obtained for this operation. I have explained the nature, purpose and benefits of the operation. I have discussed the risks and benefit of the operation including possible complications or adverse events with patient/family. Alternative(s) were discussed with the patient with their relative benefits and risks as well as the consequences of not accepting the ope ration were included in obtaining consent. Surgeon: CHERYL KUMAR MD, PHD Procedure Assisted By: CHARLOTTE Porter Description of Procedure: This is a complex surgery on the lumbar spine and an entry level administrative assistant as needed for safety of the surgery for setup of instrumentation, retraction and closing. History: This 79 year year old male suffering from intractable low back pain associated with a lumbar degenerative scoliosis. The patient was offered an oblique lumbar lateral interbody fusion followed by a posterior lateral instrumented fusion L2 to L5. The procedure and complications were explained and the patient was consented. Procedure: The patient was brought to the operating room and endotracheally intubated. The patient was positioned on the Rickey spine table in a modified prone position for ease of access from the left side.. 2C arms were installed for fluoroscopy. Prepping and draping was done followed by timeout. The landmarks, including spinal processes, transverse processes, disc space, endplates and pedicles are identified and marked. The following steps are taken for each specified level: L2-3 level: Cage size 11 mm high and 33 mm long titanium; L3-4 level: Cage size 10 mm high and 33 mm long titanium; L4-5 level: Cage size 10 mm high and 30 mm long titanium . The patient was turned using the rotation of the surgical table so a near direct anterior lateral approach to the lumbar spine could be achieved. A small incision was then made superior to the mid iliac crest and then using biplanar fluoroscopy visualization, under electrophysiological monitoring and stimulation, we introduced an electrophysiological probe through the retroperitoneal space into the desired disc anterior to the transverse process and then passed it into the disc space after finding a silent window. The sleeve was retained and the probe was removed, then the K wire was passed sequentially into the disc space. A dilating tube was then passed along the same route. Following this, a working channel, a working channel was then passed sequentially into the disc space. The working channel was manually held in position while a series of disc cleaning tools were passed through the channel to remove the affected disc under clear and direct biplanar fluoroscopic visualization, decompress the nerve roots and equal corticated vertebral endplates at this segment. Arthrodesis of the intervertebral space via an anterior retroperitoneal exposure was achieved through [place] and lateral extraforaminal space. Allograft was added into the anterior disc space. The working channel was then removed. A titanium interbody cage tightly packed with allograft was then inserted into the midportion of the intervertebral disc space over a K-wire under biplanar fluoroscopic visualization and intraoperative neuro monitoring. The inter pedicular and intradiscal space was significantly enlarged and disc height was restored to worked normal anatomy there for releasing pressure on the nerve roots visual largely the spinal canal and lateral recess as well as foramen were bilateral decompressed and all bones were confined to the borders of the disc space. This was done for the levels L2-3, L3-4 and L4-5 The following steps are then taken for each specified level: Bilateral L2, L3, L4 and L5 levels: A total of 8 screws screws with a diameter of 6.5 x 45 mm. The posterolateral fusion is initiated after the patient is rotated to a true prone position. The entry point to the pedicle is identified in the AP and lateral views and then the skin incision is injected with local anesthetic. We entered the pedicle with the pediguard tap after which a K-wire was introduced into the vertebral body. Additionally, I used a small periosteal decorticator along the screws to refresh the surface of the bone and facet and I put some amount of allograft for additional stability for the posterolateral fusion. Over the K-wire we insert pedicle screws bilaterally. After the screws were placed, we put the larry in place and under fluoroscopic imaging, we locked the larry in place and removed the screw tops and then each incision has been closed with 0 Vicryl for the fascia and a 3-0 Vicryl for the subdermal layer. Steri- Strips were used to approximate the incisions. An OpSite with Tegaderm was used to cover the incision. Final x-rays and AP and lateral projection showed good position of the interbody devices and instrumentation. All sponge and needle counts were correct. The patient was extubated and transported in a stable condition to the recovery room. 2-0 Vicryl This procedure was done with the aid of a physician entry level administrative assistant as a qualified resident was not available. Anesthesia: General Estimated Blood Loss (ml): 150 mL Specimen: None Duration of Surgery: 2 hours 30 minutes Postoperative Plan: Admit to inpatient
[2024-09-17] MEDS: hydrOXYzine HCL 25 MG TABLET PO ×2 (14:05→21:35)
[2024-09-17] MEDS: ceFAZolin Sodium/Dextrose,Iso 2 GM/50 ML PIGGYBACK IV ×2 (14:05→19:35)
[2024-09-17] MEDS: 0.9 % Sodium Chloride 1,000 ML 75 ML IVCONT (14:06)
[2024-09-17] MEDS: Acetaminophen 325 MG TABLET 975 MG PO ×2 (14:06→19:36)
--- NOTE | 2024-09-17 14:21 | PC.NURSE ---
Addendum entered by Yuki Chopra RN 09/17/24 17:28: Temp recheck 97.5 oral. Addendum entered by Yuki Chopra RN 09/17/24 15:30: Temp recheck 94.1 axillary. PA Aware, all other VSS, pt is A&Ox4. No new orders at this time. Original Note: PEG Grant made aware pt rectal temperature 94.9, other VSS, 60HR, 16 RR, 111/53, and 97% on 2L. Pt A&Ox4 neuro assessment intact.
[2024-09-17] MEDS: hydroCHLOROthiazide 12.5 MG TABLET PO ×2 (15:31→21:35)
[2024-09-17] MEDS: lisinopriL 10 MG TABLET PO ×2 (15:31→21:34)
[2024-09-17 20:06] LABS: Glucose, Whole Blood 178 mg/dL (60-115)
[2024-09-17] MEDS: Metoprolol Succinate ER 50 MG TAB.ER.24H PO (21:34)
[2024-09-17] MEDS: Docusate Sodium 100 MG CAPSULE PO (21:34)
[2024-09-17] MEDS: Ezetimibe 10 MG TABLET PO (21:35)
[2024-09-18] MEDS: ceFAZolin Sodium/Dextrose,Iso 2 GM/50 ML PIGGYBACK IV (01:46)
[2024-09-18 03:39] VITALS: BP 94/51; PULSE 70; RESP 19; TEMP 36.2; O2SAT 93
[2024-09-18] MEDS: 0.9 % Sodium Chloride 1,000 ML 75 ML IVCONT (03:57)
[2024-09-18 07:38] VITALS: PULSE 66; RESP 18; TEMP 36.6; O2SAT 93
[2024-09-18 07:54] VITALS: BP 82/44
[2024-09-18 07:55] VITALS: BP 74/44
[2024-09-18] MEDS: Acetaminophen 325 MG TABLET 975 MG PO (08:38)
[2024-09-18] MEDS: 0.9 % Sodium Chloride 500 ML IV (08:38)
[2024-09-18] MEDS: Docusate Sodium 100 MG CAPSULE PO (08:39)
[2024-09-18] MEDS: Atorvastatin Calcium 80 MG TABLET PO (08:39)
--- NOTE | 2024-09-18 08:59 | HO.POSTANES ---
Post Anesthesia Evaluation Post Anesthesia Evaluation Date of Service: 09/17/24 Vital Signs: Vital Signs Temp Pulse Resp BP Pulse Ox O2 Del Method 09/18/24 07:55 74/44 L 09/18/24 07:54 82/44 L 09/18/24 07:38 97.8 F 66 18 93 Room Air 09/18/24 03:39 97.1 F 70 19 94/51 L 93 Room Air 09/17/24 21:35 112/62 09/17/24 21:34 72 112/62 09/17/24 21:34 112/62 Anesthesia: General Endotracheal-GETA Mental Status: Awake Pain Control: Satisfactory Nausea/Vomiting: None Hydration: Adequate Anesthesia-Related Issues: No Anes. Related Issues
[2024-09-18 09:17] LABS: Basophils Percent Auto 0.2 % (0-2); Eosinophils Percent Auto 0.1 % (0-4); Hemoglobin 9.9 g/dl (14.0-18.0); Imm Gran Abs Auto 0.07 X10*3/uL (0.00-0.03); Imm Gran Pct Auto 0.6 % (0.0-0.4); Lymphocytes Percent Auto 8.3 % (20-40); MANUAL DIFF FLAG NO; Mean Corpuscular HGB Conc 34.1 g/dl (31.0-36.0); Mean Corpuscular Hemoglobin 34.3 pg (27.0-33.0); Mean Corpuscular Volume 100.3 fL (80.0-98.0); Mean Platelet Volume 9.4 fL (9.4-12.4); Monocytes Absolute Auto 1.3 X10*3/uL (0.1-1.2); Monocytes Percent Auto 11.4 % (2-11); Neutrophils Absolute Auto 9.3 x10*3/uL (2.0-8.3); Neutrophils Percent Auto 79.4 % (45-73); Platelet Count 196 X10*3/uL (160-400); Red Blood Count 2.89 X10*6/uL (4.60-5.80); Red Cell Distribution Width 12.7 % (11.0-16.0); White Blood Count 11.7 X10*3/uL (4.8-10.8)
--- NOTE | 2024-09-18 09:42 | HO.NEUROPN_ITS ---
Neurosurgery Operative Note Date of Service: 09/18/24 Narrative: POD: 1 Procedure: L2-5 OLLIPrema Palmer is a pleasant 79 y/o male who is day 1 postop from L2-5 transkambin lumbar fusion. He is known to our service and had a previous L3-4, L4-5 Laminotomy, Partial facetectomy and foraminotomy completed by our service last october. Of note he is known to have a generally low BP and had profound hypotension during and after anesthesia during his last surgery. This was discussed with anesthesia during his case yesterday, and acknowledged by the attending Neurosurgeon Dr. Baltazar today. Otherwise he has been doing very well since his surgery. He was seen upright in bed this morning on eating breakfast, watching football, and drinking coffee. He was asking when he will be able to go home. He has been voiding well and is evidently tolerating his current diet. He has little to no back pain and feels the surgery was very successful. CBC with diff was ordered to r/o cytopenia in the setting of post-op hypotension. Afebrile, vital signs stable. Full strength 5/5 LE. Back dressings have no staining. No active sanguineous drainage. Area is dry. Patient is able to get up OOB without assist and ambulate around room independently. Plan: 79 y/o male stable s/p L2-5 OLLIF. Unfortunately PT was not willing to work with the patient this morning due to his hypotension. CBC reveals H&H of 9.9/29. I did get the patient up OOB and ambulated with him. He appears steady on his feet. His blood pressure is not particularly concerning as this is his baseline. He would like to DC home and we believe he meets criteria to be medically discharged home. He will be discharged home with Hydromorphone 2mg q4- 6, gabapentin 100mg TID & Methocarbamol 750mg TID. He should take 1,000mg tylenol TID. This was discussed with the attending neurosurgeon Dr. Baltazar who is in agreement. Vikram Baltazar MD,PhD [facility]
[2024-09-18 09:47] VITALS: BP 92/48
--- NOTE | 2024-09-18 09:50 | MHC.CM.PN ---
Male 79 S/P L2-5 Lumbar fusion He lives with his . He is independent with all functional mobility. HCP is on file. DP home self care. Patients will provide transportation home.
--- NOTE | 2024-09-18 11:08 | PC.NURSE ---
PEG Grant, MD Giovanny Santiago group tiger text sent @ 0813 regarding pt hypotension BP reading manual 82/44 and 74/44, all other vs stable. At this time pt neuro assessment intact, pt AOx4, pt asymptomatic. Per MD Baltazar pt BP runs low. made aware pt SBP trending one teens to one twenties and scheduled lisinopril and metoprolol ordered morning doses held. PEG Grant ordered 500ml NS bolus and STAT CBC. After bolus BP recheck 92/48. CBC collected, see results for details. Physical therapy at bedside to evaluate pt, see PT report for details.
[2024-09-18 11:26] VITALS: BP 97/49; PULSE 61
--- NOTE | 2024-09-18 11:33 | PM.DS ---
DS: Providers Provider Date of Service: 09/18/24 Date of admission: 09/17/24 06:04 Primary care physician: Trevon Colby MD DS: Summary Time Attestation Discharge Coordination Time (in mins): 15 Quality: Safe Use of Opioids Does Pt have an Active Cancer Diagnosis on the Problem List?: No Quality: Stroke Does the patient have a stroke diagnosis?: No Physical Exam Vital Signs: Vital Signs: Last Vital Signs Temp 97.8 F 09/18/24 07:38 Pulse 66 09/18/24 07:38 Resp 18 09/18/24 07:38 BP 92/48 L 09/18/24 09:47 Pulse Ox 93 09/18/24 07:38 O2 Del Method Room Air 09/18/24 07:38 O2 Flow Rate 2 09/17/24 14:57 BMI result Body Mass Index 23.0 DS: Data Data Completed and Pending Labs on day of discharge: Laboratory Results - last 24 hr 09/17/24 09/18/24 19:58 09:09 WBC 11.7 H RBC 2.89 L D Hgb 9.9 L D Hct 29.0 L D MCV 100.3 H MCH 34.3 H MCHC 34.1 RDW 12.7 Plt Count 196 D MPV 9.4 Immature Gran % (Auto) 0.6 H Neut % (Auto) 79.4 H Lymph % (Auto) 8.3 L [place] % (Auto) 11.4 H Eos % (Auto) 0.1 Baso % (Auto) 0.2 Lymph # (Auto) 1.0 L [place] # (Auto) 1.3 H Eos # (Auto) 0.0 Baso # (Auto) 0.0 Abs Immat Gran (auto) 0.07 H Absolute Neuts (auto) 9.3 H Absolute Nucleated RBC 0.000 Nucleated RBC % (auto) 0.0 POC Glucose 178 H Discharge Plan Discharge Anticipated Discharge Date/Time: 09/18/24 11:34 Patient Disposition: Home, Self-Care Discharge Diagnosis: S/P L2-5 Transkambin lumbar fusion Referrals: Trevon Colby MD [Primary Care Provider] - 1 Week Discharge Medications: New hydromorphone 2 mg tablet 2 mg PO Q4-6H PRN (Reason: moderate-severe pain) Qty: 30 0RF Rx Instructions: Partial Fill upon patient request. gabapentin 100 mg capsule 100 mg PO TID PRN (Reason: nerve pain) Qty: 30 0RF methocarbamol 750 mg tablet 750 mg PO TID PRN (Reason: muscle spasms) Qty: 30 0RF methocarbamol 750 mg tablet 750 mg PO TID PRN (Reason: muscle spasms) Qty: 30 0RF gabapentin 100 mg capsule 100 mg PO TID PRN (Reason: nerve pain) Qty: 30 0RF Continued atorvastatin 40 mg tablet 80 mg PO DAILY lisinopril-hydrochlorothiazide 10-12.5 mg Tablet 1 tab PO BID ezetimibe 10 mg tablet 10 mg PO BEDTIME metoprolol succinate 50 mg tablet extended release 24 hr 50 mg PO BEDTIME naproxen 500 mg tablet 500 mg PO DAILY Held aspirin [Adult Aspirin Regimen] 81 mg tablet,delayed release (DR/EC) 81 mg PO DAILY Hold Instructions: Resume on 09/22/24. Discharge Orders: Discharge Order (Routine); Ordered 09/18/24 Ordered By: Vikram Grant Diet: Advance to usual diet Activity on Discharge: As tolerated Stand Alone Forms: Patient Portal Discharge page Print Language: Luxembourgish Care Plan Goals: RETURN TO NORMAL ACTIVITY TOLERATED Health Concerns: NONE Plan of Treatment: FOLLOW-UP IN CLINIC IN 2-3 WEEKS Assessment: POD: 1 Procedure: L2-5 SHAKIR Palmer is a pleasant 79 y/o male who is day 1 postop from L2-5 transkambin lumbar fusion. He is known to our service and had a previous L3-4, L4-5 Laminotomy, Partial facetectomy and foraminotomy completed by our service last october. Of note he is known to have a generally low BP and had profound hypotension during and after anesthesia during his last surgery. This was discussed with anesthesia during his case yesterday, and acknowledged by the attending Neurosurgeon Dr. Baltazar today. Otherwise he has been doing very well since his surgery. He was seen upright in bed this morning on eating breakfast, watching football, and drinking coffee. He was asking when he will be able to go home. He has been voiding well and is evidently tolerating his current diet. He has little to no back pain and feels the surgery was very successful. CBC with diff was ordered to r/o cytopenia in the setting of post-op hypotension. Afebrile, vital signs stable. Full strength 5/5 LE. Back dressings have no staining. No active sanguineous drainage. Area is dry. Patient is able to get up OOB without assist and ambulate around room independently. Plan: 79 y/o male stable s/p L2-5 OLLIF. Unfortunately PT was not willing to work with the patient this morning due to his hypotension. CBC reveals H&H of 9.9/29. I did get the patient up OOB and ambulated with him. He appears steady on his feet. His blood pressure is not particularly concerning as this is his baseline. He would like to DC home and we believe he meets criteria to be medically discharged home. He will be discharged home with Hydromorphone 2mg q4-6, gabapentin 100mg TID & Methocarbamol 750mg TID. He should take 1,000mg tylenol TID. This was discussed with the attending neurosurgeon Dr. Baltazar who is in agreement. Vikram Baltazar MD,PhD [facility]
--- NOTE | 2024-09-18 12:20 | MHC.CM.PN ---
Patient is discharged to home self care. His will provide transportation home.
== END 2024-09-18 13:30 | disposition home or self-care (01) | DRG 458 ==
LOC: HO.SSSA 06:06 → HO.S3 11:48
PROVIDERS: Neurological Surgery; Admitting Provider Physician Assistant; PCP Internal Medicine Medical Oncology; Visit Provider Physician Assistant
PROC: 0SG10A0 Fusion of 2 or more Lumbar Vertebral Joints with Interbody Fusion Device, Anterior Approach, Anterior Column, Open Approach (ICD-10-PCS; principal; 2024-09-17 07:30)
DX: M43.16 Spondylolisthesis, lumbar region (principal); M41.56 Other secondary scoliosis, lumbar region; I25.10 Atherosclerotic heart disease of native coronary artery without angina pectoris; J43.9 Emphysema, unspecified; Z79.82 Long term (current) use of aspirin; Z79.899 Other long term (current) drug therapy
CPT/HCPCS: 36415; 82947; 85025; 86850; 86900; 86901; 97162; C1713; C1889; C9290; J0131; J0330; J0665; J0690; J1100; J1171; J1885; J2003; J2371; J2405; J2704; J3010; L8699

== ENCOUNTER → 2024-09-17 06:04 | Outpatient (BNV) | payer OTHER, SELFPAY | PROVIDERS: Admitting Provider Physician Assistant; PCP Internal Medicine Medical Oncology; Visit Provider Neurological Surgery | DX: Z48.89 Encounter for other specified surgical aftercare (principal) | CPT/HCPCS: 20930; 22558; 22585; 22612; 22614; 22842; 22853; 63056; 63057; 99024; 99499 ==

== ENCOUNTER 2024-10-01 11:51 | Outpatient (REF) | payer OTHER, SELFPAY | END 2024-10-01 11:52 | disposition home or self-care (01) | LOC: HO.HOSX 11:51 | PROVIDERS: Visit Provider Physician Assistant | DX: Z13.89 Encounter for screening for other disorder (principal) ==

== ENCOUNTER → 2024-10-02 09:41 | Outpatient (BNV) | payer OTHER, SELFPAY | PROVIDERS: Visit Provider Radiology Diagnostic Radiology | DX: M43.16 Spondylolisthesis, lumbar region (principal) | CPT/HCPCS: 72110 ==

== ENCOUNTER 2024-10-02 11:51 | Outpatient (REF) | payer OTHER, SELFPAY | END 2024-10-02 11:52 | disposition home or self-care (01) | LOC: HO.HOSX 11:51 | PROVIDERS: Visit Provider Physician Assistant | DX: M54.50 Low back pain, unspecified (principal) | CPT/HCPCS: 72110 ==

== ENCOUNTER 2024-10-06 08:59 | Outpatient (REF) | payer OTHER, SELFPAY | END 2024-10-06 09:00 | disposition home or self-care (01) | LOC: HO.HOSX 08:59 | PROVIDERS: PCP Internal Medicine Medical Oncology; Visit Provider Physician Assistant | DX: M43.16 Spondylolisthesis, lumbar region (principal) | CPT/HCPCS: 99212 ==

== ENCOUNTER 2024-10-06 08:59 | Outpatient (AMB) | payer OTHER, SELFPAY ==
--- NOTE | 2024-10-06 09:01 | HO.SPINEOV ---
Intake Visit Reasons: 1st post op Intake Note: Mr. Price is here today for his 1st post op visit. Manager Respiratory Care Required: No Allergies oxycodone [From PERCOCET] Allergy (Severe, Verified 09/17/24 06:17) headache/diaphoresis/nausea bee pollen [bee stings] Allergy (Intermediate, Verified 09/17/24 06:17) Hives Assessment & Plan Assessment & Plan (1) Spondylolisthesis, lumbar region: Code(s): M43.16 - Spondylolisthesis, lumbar region Category: Medical Plan MR Price is 3 weeks out from his L2-5 oblique lateral lumbar interbody fusion. He has continuing to have back pain with standing and walking. He can walk for about 5 minutes before he has to sit down. He feels a constant toothache like pain in his back. He has been taking the Dilaudid, muscle relaxers, naproxen and Tylenol. Seems to be doing a little better each week. He has some tingling of his toes but nothing shooting down his legs. His wounds have all healed up beautifully and he seems to be able to stand walk around independently without too much distress. No focal deficits. We discussed activity guidelines, restrictions and expectations after lumbar fusion. I refilled his Dilaudid. He will return to see me in 6 weeks with a set of x-rays. Will Baltazar MD, PhD [facility] Orders: Orders XR lumbar spine 4V min Today M43.16 - Spondylolisthesis, lumbar region Medications: New hydromorphone Partial Fill upon patient request. 2 mg PO Q6H PRN 30 tabs 0RF pain Coding Level of Care Code Global (71292) Diagnoses Spondylolisthesis, lumbar region M43.16
== END 2024-10-06 09:26 | disposition home or self-care (01) ==
PROVIDERS: PCP Internal Medicine Medical Oncology; Visit Provider Physician Assistant
DX: M43.16 Spondylolisthesis, lumbar region (principal)
CPT/HCPCS: 99024

== ENCOUNTER 2024-11-06 12:34 | Outpatient (REF) | payer BC, SELFPAY | END 2024-11-06 12:35 | disposition home or self-care (01) | LOC: HO.US 12:34 | PROVIDERS: PCP Internal Medicine Medical Oncology; Visit Provider Surgery Vascular Surgery | DX: I73.9 Peripheral vascular disease, unspecified (principal) | CPT/HCPCS: 93922; 93925 ==

== ENCOUNTER 2024-11-13 10:00 | Outpatient (AMB) | payer MEDICARE, SELFPAY ==
--- NOTE | 2024-11-13 10:04 | A.OFFVIS_ITS ---
Intake Visit Reasons: follow up s/p Arterial US 11/06/24 Intake Note: Patient states both feet are tingling and painful but that the left is worse than the right. Can not walk much as his legs cramp up. Accompanied by: Self / Same As Patient Allergies oxycodone [From PERCOCET] Allergy (Severe, Verified 11/13/24 10:05) headache/diaphoresis/nausea bee pollen [bee stings] Allergy (Intermediate, Verified 11/13/24 10:05) Hives HPI HPI follow up s/p Arterial US 11/06/24: Details: Very pleasant 79-year-old gentleman presents for routine arterial surveillance f ollow-up. He complains of lower extremity numbness and tingling. He has undergone neurosurgical intervention by Dr. Baltazar. On 10/23/2023 he had undergone L3-4, L4-5 laminectomy, and on 09/17/2024 he underwent LL 3 4, L4-5 OLIF with diskectomy. He continues to have lower extremity pain and discomfort. His biggest complaint is the numbness and tingling on the dorsum of bilateral feet left more so than right. He now presents for follow-up with noninvasive testing. [facility] Medical History Bladder cancer Ascending aorta dilatation PONV (postoperative nausea and vomiting) Pulmonary emphysema Dyspnea on exertion COPD (chronic obstructive pulmonary disease) CAD (coronary artery disease) HTN (hypertension) Hyperlipidemia PAD (peripheral artery disease) Hypercholesteremia Surgical History Hx of bilateral cataract extraction Hx of cystoscopy History of back surgery H/O cardiac catheterization Stented coronary artery Hx of colonoscopy Hx of inguinal hernia repair Hx of appendectomy History of hip surgery History of femoral angiogram Family History Father CVD (cardiovascular disease) Mother Lung cancer Social History Household Members: Spouse Housing: House Are you a primary health care / medical job titles to a significant other at home: No Do you presently have visiting nurse or other home services: No Patient Tobacco Use Status: Never used Tobacco Tobacco use type: Cigarette Years Smoked: 25 service: Yes Review of Systems Const All systems reviewed & are unremarkable except as noted in HPI and below Reports no additional complaints ENT Reports Normal hearing present Card Denies chest pain, Denies chest pain at rest, Denies chest pain with activity and Denies pedal edema Resp Denies cough GI Denies abdominal pain Musc Denies abnormal gait, Denies muscle cramps and Denies radiating pain into limb Skin/Breast Denies skin ulcer and Denies wounds Neuro Reports Normal hearing present and Denies abnormal gait Psych Reports no additional complaints Physical Exam Const General: cooperative, healthy appearing and comfortable Orientation/consciousness: oriented to person, oriented to place and oriented to time HEENT Head: Yes normal to inspection Neck Neck: Yes normal visual inspection Carotids: no bruits Chest Chest palpation & inspection: normal inspection of the chest Resp Effort & Inspection: normal respiratory effort and able to speak in complete sentences Auscultation: clear to auscultation bilaterally, no crackles, no rales, no rh onchi and no wheezes Cardio Other: Bilateral DP signals Rate: regular rate Rhythm: regular rhythm Heart sounds: S1 normal heart sound present and S2 normal heart sound present Bruits: no carotid bruits Peripheral pulses: Peripheral pulses 2+ throughout GI Inspection: Yes normal to inspection Skin Wounds: no wounds Hair: normal Neuro General: oriented to person, oriented to place and oriented to time Cranial nerves: Yes CN's II-XII intact bilaterally and Yes Normal hearing present Cognition (Neuro): normal cognition Motor exam (neuro): 5/5 motor strength present throughout Extrem Other: venous exam: No significant superficial varicosities or spider telangiectasias, minimal edema General: No clubbing, No cyanosis and No edema Psych Appearance: grossly normal Mental Status: mental status grossly normal Speech and movement: Normal speech and movement present Results Reviewed Results Reviewed: Noninvasive arterial testing dated 11/06/2024 demonstrates NA on the right of 0.88 and on the left of 0.59 written report reviewed only Assessment & Plan Assessment & Plan (1) PAD (peripheral artery disease): Comment: (follows w/Dr. Bear) 04/04/2023- right SFA atherectomy and stent placement 04/13/2021- angioplasty right peroneal and popliteal artery, angioplasty and stent of right SFA 06/2018 Left fem endarterectomy Right superficial fem artery atherectomy and angioplasty Right atherectomy and balloon angioplasty of the popliteal & superficial arteries and peroneal artery. 12/19/2017 Code(s): I73.9 - Peripheral vascular disease, unspecified Category: Medical Plan: In short patient has element of peripheral vascular disease. The concern here is that it is a mixed picture with his back and spine involvement. I would like his back to heal and for him to have neurosurgical follow-up. I did review his arterial testing and would like to get a CT angiogram in approximately 3 months time to better elucidate the location and amount of disease and plaquing throughout his arterial system. He will follow up with me after testing. He is scheduled for follow-up with Dr. Bertrand office on Sunday. Coding Level of Care Code Est Pt Level 4 (43445) Complex EM visit Add On G2211 Diagnoses PAD (peripheral artery disease) I73.9
--- OUTSIDE RECORDS SUMMARY | 2024-11-13 10:08 | XMS_ITS ---
Author Organization Trevon Colby III, MD Address [address] [place] [address] [address] [place] [address] Care Team Providers Care Custody Officer Name Role Phone Trevon Colby Primary Care Provider [phone] Allergies Allergen (clinical drug ingredient) Drug/Non Drug [...] Date Provider Diagnosis Trevon Colby III, MD [address] [place] [address] [address], [place] [id number] 10/13/2024 Trevon Colby Hyperlipidemia E78.5 ; Spinal [...] all of his medications. He saw his city manager this month who found him to be [...] Up: 4 Months, Reason: OV Provider Name:Trevon Colby, 02/11/2025 10:00:00 AM, [address] [place] [address] [address], [place], [id number], Provider Name:Trevon Colby, 05/05/2025 09:30:00 AM, [address] [place] [address] [address], [place], [id number], Progress Notes * Spencer PR[birth year]EDOB:[birth year] (79 yo M)Acc No.[id number]:10/13/2024 Progress Notes Patient:?Spencer PRICE Provider:?Trevon Colby MD :1945???Age:79 Y???Sex:Male Blas e:10/13/2024 Address:[address] [place], [place] [id number] Subjective: * Chief Complaints: * ???Recent back surgerySpinal stenosisBenign prostatic hypertrophyPeripheral arterial diseaseHyperlipidemiaCoronary artery diseaseChronic kidney disease * HPI: ???COVID-19 Screening:?Questions?Have you experienced fever, chills, cough, sore throat, shortness of breath, difficulty breathing, muscle aches, loss of taste or smell??No ?Have you been exposed to the virus within the last 10 days??No ?Have you travelled internationally in the last 10 days??No ?Have you been exposed to COVID-19 in the past??Yes ???:?The patient, an 79-year-old male, underwent back surgery [...] measured at 133/60. He was admitted to [facility] September 16, 2024 and underwent a lumbar fusion from L3-L5.? One year ago he had a laminectomy at this level.? The surgery was done to relieve pain.? He reports some pain relief so far. * ROS:?General/Constitutional:?Admits?pain,?Surgical incision lumbar spine, some claudication and lower extremities.?Chills?denies.?Fatigue?admits.?Fever?denies.?ENT:?Decreased hearing?denies.?Respiratory:?Cough?denies.?Cardiovascular:?Chest pain with exertion?denies.?Dyspnea on exertion?denies.?Shortness of breath?denies.?Gastrointestinal:?Constipation?occasional.?Decreased appetite?denies.?Diarrhea?denies.?Heartburn?denies.?Nausea?denies.?Rectal bleeding?denies.?Vomiting?denies.?Hematology:?bruising?denies.?petechiae?denies.?Swollen glands?none have been noted.?Genitourinary:?Frequent urination?once a night.?Musculoskeletal:?Muscle aches?denies.?Painful joints?denies.?Sciatica?denies.?Weakness?denies.?Skin:?Itching?denies.?Rash?denies.?Skin lesion(s)?denies.?Neurologic:?Difficulty speaking?denies.?Dizziness?denies.?Headache?denies.?Low back pain?denies.?Psychiatric:?Depressed mood?denies.? * Medical History:? * Surgical History:?herniorrha phy appendectomy Hip replacement right Cataract surgery both eyes 2011colonoscopy, tubular adenoma 2003colonoscopy, negative 2007colonoscopy, negative 2012cardiac catheterization with stent insertion, inferior wall ischemia, 99% right coronary artery stenosis 2016left iliofemoral endarterectomy 2016right common femoral artery angioplasty 2016carpal tunnel surgery right hand, Instrum 04/2018carpal tunnel right hand 10/2019Angiogram Dr. Bear 1Lumbar L3-5 Laminectomy, partial facetectomy, foraminotomy, [facility], Dr Baltazar 10/25/2023ngioplasty right peroneal and popliteal artery 04/13/2021ight popliteal and peroneal artery atherectomy and angioplasty 12/2017Left femoral endarterectomy, right superficial Femoral artery atherectomy and angioplasty 06/[id number] fusion [facility] [place]18/[place]24 * Hospitalization/Major Diagno stic Procedure:?Back surgery on september 1709/2024 * Family History:?Father: dece ased.?Mother: , diagnosed with Cancer.?2 brother(s) , 1 sister(s) - healthy. .? There is no family history of genitourinary cancer. He is not aware of any family history of mental illness or substance use disorder or addiction. * Social History:?Tobacco Use:?Tobacco Use/Smoking?Patient is a?former smoker ?How long has it been since you last smoked??> 10 years ?Additional Findings: Tobacco Non-User?Ex-cigarette smoker * Medications:?TakingMetoprolo l Succinate ER SUC 50MG Tablet Extended Release [...] reviewed and reconciled with the patient * Allergies:?Percocet: nausea - Side EffectsBee Sting: hives - Allergyno[Allergies Verified] Objective: * Vitals:?Ht: 66, Wt:170, BMI: 27.44, BP:133/60, HR:80, Temp:98.1, Ht-cm: 167.64, Wt-k.11. * ???Past Orders: ???Lab:Type and Screen (Orde r Date - 09/03/2024) (Collection Date & Time - 09/03/2024 11:08 AM) ? Value Reference Range ?Blood Type OP - ?Antibody Screen NEGATIVE - ???Lab:Glucose, Whole Blood (Order Date - 09/17/2024) (Collection Date & Time - 09/17/2024 07:58 PM) ? Value Reference Range ?Glucose, Whole Blood 178 H 60-115 - mg/dL Lab:Complete Blood Count Aut o Diff * Collection Date 09/18/2024 07/24/2024 04/21/2024 Collection Time 09:09 AM 08:07 AM 07:58 AM Order Date 09/18/2024 07/24/2024 04/21/2024 White Blood Count 11.7?H (Ref Range: 4.8-10.8 X10*3/uL) 5.0 (Ref Range: 4.8-10.8 X10*3/uL) 5.2 (Ref Range: 4.8-10.8 X10*3/uL) Red Blood Count 2.89?L (Ref Range: 4.60-5.80 X10*6/uL) 3.68?L (Ref Range: 4.60-5.80 X10*6/uL) 3.91?L (Ref Range: 4.60-5.80 X10*6/uL) Hemoglobin 9.9?L (Ref Range: 14.0-18.0 g/dl) 12.5?L (Ref Range: 14.0-18.0 g/dl) 13.0?L (Ref Range: 14.0-18.0 g/dl) Hematocrit 29.0?L (Ref Range: 42.0-52.0 %) 37.0?L (Ref Range: 42.0-52.0 %) 39.0?L (Ref Range: 42.0-52.0 %) Mean Corpuscular Volume 100.3?H (Ref Range: 80.0-98.0 fL) 100.5?H (Ref Range: 80.0-98.0 fL) 99.7?H (Ref Range: 80.0-98.0 fL) Mean Corpuscular Hemoglobin 34.3?H (Ref Range: 27.0-33.0 pg) 34.0?H (Ref Range: 27.0-33.0 pg) 33.2?H (Ref Range: 27.0-33.0 pg) Mean Corpuscular HGB [...] (Ref Range: 9.4-12.4 fL) Neutrophils Percent Auto 79.4?H (Ref Range: 45-73 %) 48.1 (Ref Range: 45-73 %) 49.7 (Ref Range: 45-73 %) Imm Gran Pct Auto 0.6?H (Ref Range: 0.0-0.4 %) 0.4 (Ref Range: 0.0-0.4 %) 0.2 (Ref Range: 0.0-0.4 %) Lymphocytes Percent Auto 8.3?L (Ref Range: 20-40 %) 28.7 (Ref Range: 20-40 %) 31.2 (Ref Range: 20-40 %) Monocytes Percent Auto 11.4?H (Ref Range: 2-11 %) 12.5?H (Ref Range: 2-11 %) 10.9 (Ref Range: 2-11 %) Eosinophils Percent Auto 0.1 (Ref Range: 0-4 %) 9.1?H (Ref Range: 0-4 %) 6.9?H (Ref Range: 0-4 %) Basophils Percent Auto 0.2 (Ref Range: 0-2 %) 1.2 (Ref Range: 0-2 %) 1.1 (Ref Range: 0-2 %) NRBC Pct Auto 0.0 (Ref Range: 0.0-0.2 /100WBC) 0.0 (Ref Range: 0.0-0.2 /100WBC) 0.0 (Ref Range: 0.0-0.2 /100WBC) Neutrophils Absolute Auto 9.3?H (Ref Range: 2.0-8.3 x10*3/uL) 2.4 (Ref Range: 2.0-8.3 x10*3/uL) 2.6 (Ref Range: 2.0-8.3 x10*3/uL) Imm Gran Abs Auto 0.07?H (Ref Range: 0.00-0.03 X10*3/uL) 0.02 (Ref Range: 0.00-0.03 X10*3/uL) 0.01 (Ref Range: 0.00-0.03 X10*3/uL) Lymphocytes Absolute Auto 1.0?L (Ref Range: 1.2-4.9 X10*3/uL) 1.4 (Ref Range: 1.2-4.9 X10*3/uL) 1.6 (Ref Range: 1.2-4.9 X10*3/uL) Monocytes Absolute Auto 1.3?H (Ref Range: 0.1-1.2 X10*3/uL) 0.6 (Ref Range: 0.1-1.2 X10*3/uL) 0.6 (Ref Range: 0.1-1.2 X10*3/uL) Eosinophils Absolute Auto 0.0 (Ref Range: 0.0-0.4 X10*3/uL) 0.5?H (Ref Range: 0.0-0.4 X10*3/uL) 0.4 (Ref Range: [...] 10:55 AM Order Date 09/17/2024 10/25/2023 * Lab:[facility] * Collection Date 07/24/2024 04/21/2024 02/19/2024 Collection [...] 26 (Ref Range: 22-29 mmol/L) Anion Gap 10?L (Ref Range: 12-20) 8?L (Ref Range: 12-20) 12 (Ref Range: 12-20) Blood Urea Nitrogen 32?H (Ref Range: 9-16 mg/dL) 35?H (Ref Range: 9-16 mg/dL) 43?H (Ref Range: 9-16 mg/dL) Creatinine 1.48?H (Ref Range: 0.5-1.4 mg/dL) 1.45?H (Ref Range: 0.5-1.4 mg/dL) 1.56?H (Ref Range: 0.5-1.4 mg/dL) Estimated Glomerular Filt Rate 46 47 43 Glucose Fasting 94 (Ref Range: 60-99 mg/dL) 92 (Ref Range: 60-99 mg/dL) 106?H (Ref Range: 60-99 mg/dL) Calcium 9.8 (Ref [...] 3.34 (Ref Range: <0.05-4.0 ng/mL) * Examination: ???General Examination: ?GENERAL APPEARANCE:?pleasant, well nourished, well developed, in no acute distress, calm and relaxed, overweight, man.?HEAD:?atraumatic, normocephalic.?EYES:?eomi, perrla, anicteric, conjugate.?EARS:?normal.?NOSE:?septum intact.?ORAL CAVITY:?normal, unremarkable.?NECK/THYROID:?no jugular venous distention, no carotid bruit, thyroid normal.?LYMPH NODES:?no enlarged lymph nodes,spleen normal.?SKIN:?no suspicious lesions, anicteric.?HEART:?no clicks, gallops, murmurs, or rubs, regular rhythm, S1, S2 normal, no s3, or vascular bruits.?LUNGS:?, no wheezes, rales, rhonchi, diminished breath sounds throughout.?BREASTS:??no masses palpable bilaterally.?ABDOMEN:?bowel sounds normal, no ascites, no organomegaly, no mass.?RECTAL EXAM:?not examined.?MUSCULOSKELETAL:?extremities unremarkable, no clubbing, cyanosis or edema, Recent surgical incision of the lumbar spine, pain to range of motion lumbar spine, able to walk.?PERIPHERAL PULSES:?normal.?NEUROLOGIC:?alert and oriented, cranial nerves 2-12 grossly intact, deep tendon reflexes 2+ symmetrical, motor strength normal upper and lower extremities, sensory exam intact.?PSYCH:?alert, oriented.? Assessment: * Assessment: 1.?Spinal stenosis, lumbar - M48.06 (Primary)???Notes :The lumbar fusiontook place without side effects or incidents. He notices a substantial improvement in his back pain. The wound is well-healed. He reports much less pain with ambulation.???2.?Hyperlipidemia - E78.5???Notes :His total cholesterol level is 120. His lipids are in near target range. No change in his medications was made. His lipids were reviewed. He will have fasting lipid profile in the near future.???3.?Overweight - E66.3???Notes :He weighs 170 pounds.? His body mass index is 27.? He has gained 3 pounds since his last visit.? We reviewed his weight loss strategy and discussed this.???4.?BPH (benign prostatic hyperplasia) - N40.0???Notes :He arises from sleep once or twice a night to urinate.? We have discussed lifestyle modifications he could make to reduce nocturia.???5.?Former smoker - Z87.891???Notes :He is highly motivated not to smoke and we discussed means of preserving abstinence in times of stress.???6.?History of bladder cancer - Z85.51???Notes :There was no sign of cancer on his exam today. He recently had a cystoscopy, March 2024 which showed no gross recurrence. Surveillance will continue???7.?Peripheral vascular disease - I73.9???Notes :He has significant bilateral arterial disease. In [...] March 2024 and was thought to be stable.???8.?Osteoarthritis of right hip - M16.11???Notes :He continues to have the same pain in his right hip with walking. He is able to ambulate but it is difficult. He does not wish to consider a surgical approach.???9.?Coronary artery disease - I25.10???Notes :He has had no recent palpitations, angina, syncope or nausea. He has been compliant with all of his medications. He saw his city manager this month who found him to be stable and gave him an appointment to return in one year.???10.?Stage 2 chronic kidney disease - N18.2???Notes :His renal function has deteriorated. His BUN is now 32 with a creatinine 1.48. His GFR is 46. His fasting lipid profile is at target. He has a significant history of arterial disease. This continues to deteriorate he will see nephrology.???11.?Emphysema lung - J43.9???Notes :He is no longer smoking. He is short of breath with sustained exertion but is comfortable breathing room air at rest.??? Plan: * Treatment: 2.?Overweight?LAB: PROFILE, FASTING (COMPREHENSIVE METABOLIC) ?LAB: PSA, TOTAL ?LAB: CBC WITH AUTO DIFF ?LAB: Lipid Panel 3.?BPH (benign prostatic hyp erplasia)?LAB: PROFILE, FASTING (COMPREHENSIVE METABOLIC) ?LAB: PSA, TOTAL ?LAB: CBC WITH AUTO DIFF ?LAB: Lipid Panel * Procedure Codes:? * Preventive Medicine:? ??Counseling:?Care goal follow-up plan:?Counseling for abnormal BMI given?Yes ?Above Normal BMI Follow-up?Dietary management education, guidance, and counseling, Dietary needs education * Follow Up:?4 Months (Reason: OV) * Images: * Sign off status: Completed true * Provider:?Trevon Colby MD Date:?12/2023 Generated for Allison jimenez/Bhavin/Demetriaitting on:?11/13/2024 10:08 AM EST History and Physical Notes * HPI (History of Present Illness) Category Sub-Category Detail Notes COVID-19 Screening Questions Have you had any new onset fever, chills, cough, congestion, sore throat, shortness of breath, muscle aches?: No Have you been exposed to the virus withi n the last 10 days?: No Have you travelled internationally in [facility] last 10 days?: No Have you been [...]
--- OUTSIDE RECORDS SUMMARY | 2024-11-13 10:08 | XMS_ITS ---
Author Organization Trevon Colby III, MD Address [address] [place] [address] [address] [place] [address] Care Team Providers Care Claims Service Adjustor Name Role Phone Trevon Colby Primary Care Provider [phone] Allergies Allergen (clinical drug ingredient) Drug/Non Drug Allergy documented on EMR Reaction Allergy Type Onset Date Status Bee Sting hives Allergy Active acetaminophen / oxycodone Percocet nausea Drug Allergy Active REASON FOR VISIT Peripheral vascular disease, Recent spinal laminectomy for spinal stenosis, Coronary artery disease, Urothelial carcinoma, Chronic renal disease, Arthritis right hip, Emphysema Medications Medication SIG (Take, Route, Frequency, Duration) Notes Start Date End Date Status Ezetimibe 10 MG 1 tablet Orally Once a day Active Atorvastatin Calcium 80 MG 1 tablet Oral ly Once a day Active Lisinopril 20 MG 1 tablet Orally Once a day Active Clopidogrel Bisulfate 75 MG 1 tablet Ora lly Once a day 03/30/2021 Active Metoprolol Succinate ER SUC 50MG TAKE 1 TABLET ONCE DAILY Orally Once a day Active Naproxen 500 MG 1 tablet with food o r milk as needed Orally every 12 hrs Active Lisinopril-hydroCHLOROthiaz racheal 12.5-10 MG 1 tablet Orally Once a day Active Aspirin Adult Low Dose 81 MG 1 tablet Orally Once a day Active Social History [...] Non-User Ex-cigaret te smoker Vital Signs Temperature 97.9 degrees Fahrenheit 08/01/20 24 Blood pressure systolic 124 mm Hg 08/01/20 24 Blood pressure diastolic 68 mm Hg 024 Heart Rate 68 /min 08/01/2024 Height 66 in 08/01/2024 Weight 167 lbs 08/01/2024 BMI 26.95 kg/m2 08/01/2024 Encounters Encounter Location Date Provider Diagnosis Trevon Colby III, MD [address] [place] [address] [place] [address] 08/01/2024 Trevon Colby Hyperlipidemia E78.5 ; Osteoarthritis of right hip M16.11 ; Overweight E66.3 ; Spinal stenosis, lumbar M48.06 ; Carpal tunnel syndrome, right upper limb G56.01 ; Peripheral vascular disease I73.9 ; History of bladder cancer Z85.51 and Stage 2 chronic kidney disease N18.2 Assessments Encounter Date Diagnosis (ICD Code) Assessment Notes Treat ment Notes Treatment Clinical Notes 08/01/2024 Hyperlipidemia (ICD-10 - E78.5) His total cholesterol level is 120. His lipids are in near target range. No change in his medications was made. His lipids were reviewed. He will have fasting lipid profile in the near future. 08/01/2024 Osteoarthritis of right hip (ICD-10 - M16.11) He continues to have the same pain in his right hip with walking. He is able to ambulate but it is difficult. He does not wish to consider a surgical approach. 08/01/2024 Overweight (ICD-10 - E66.3) His body mass index is 26. He is keeping his weight stable. We reviewed his diet and nutrition and weight loss strategy. 08/01/2024 Spinal stenosis, lumbar (ICD-10 - M48.06) The decompression surgery took place without side effects or incidents. He notices a substantial improvement in his back pain. The wound is well-healed. He reports much less pain with ambulation. 08/01/2024 Carpal tunnel syndrome, right upper limb (ICD-10 - G56.01) He has seen the orthopedic surgeon and will undergo surgery for carpal tunnel syndrome on the right later this month. He is cleared for surgery at this time. 08/01/2024 Peripheral vascular disease (ICD-10 - I73.9) He [...] 2024 and was thought to be stable. 08/01/2024 History of bladder cancer (ICD-10 - Z85.51) There was no sign of cancer on his exam today. He recently had a cystoscopy, March 2024 which showed no gross recurrence. Surveillance will continue 08/01/2024 Stage 2 chronic kidney disease (ICD-10 - N18.2) His renal function has deteriorated. His BUN is now 32 with a creatinine 1.48. His GFR is 46. His fasting lipid profile is at target. He has a significant history of arterial disease. This continues to deteriorate he will see nephrology. Plan Of Treatment Medication Medication Name Sig Start Date Stop Date Notes Ezetimibe 10 MG 1 tablet Orally Once a day Atorvastatin Calcium 80 MG 1 tablet Orally Once a day Lisinopril 20 MG 1 tablet Orally Once a day Clopidogrel Bisulfate 75 MG 1 tablet Orally Once a day Metoprolol Succinate ER SUC 50MG TAKE 1 TABLET ONCE DAILY Orally Once a day Naproxen 500 MG 1 tablet with food o r milk as needed Orally every 12 hrs Lisinopril-hydroCHLOROthiazi de 12.5-10 MG 1 tablet Orally Once a day Aspirin Adult Low Dose 81 MG 1 tablet Orally Once a day Next Appt Details Follow Up: 2 Months, Reason: OV Provider Name:Trevon Colby, 02/11/2025 10:00:00 AM, [address] [place] [address] [address], [place], [address], Provider Name:Trevon Colby, 05/05/2025 09:30:00 AM, [address] [place] [address] [place], [address], Progress Notes * Spencer PR[birth year]EDOB:[birth year] (79 yo M)Acc No.[id number]:08/01/2024 Progress Notes Patient:?DarylSpencer meza Provider:?Trevon Colby MD :1945???Age:79 Y???Sex:Male Blas e:08/01/2024 Address:[address], [id number] Subjective: * Chief Complaints: * ???Peripheral vascular disea seRecent spinal laminectomy for spinal stenosisCoronary artery diseaseUrothelial carcinomaChronic renal diseaseArthritis right hipEmphysema * HPI: ???COVID-19 Screening:?Questions?Have you experienced fever, chills, cough, sore throat, shortness of breath, difficulty breathing, muscle aches, loss of taste or smell??No ?Have you been exposed to the virus within the last 10 days??No ?Have you travelled internationally in the last 10 days??No ?Have you been exposed to COVID-19 in the past??Yes ? pennings nov titaniumember, difficult walking, r ip 0k. He returns for medical management. In October of last year he had a laminectomy for spinal stenosis. Last February he had a negative cystoscopy for bladder cancer. In March 2024 he saw a vascular surgeon who felt him to be stable. In April of this year he saw his research development manager who gave him a one-year follow-up appointment. He has been compliant with his medications. He is taking no new medications. He denies any chest pain. He is short of breath with prolonged exertion. His examination today was unchanged. * ROS:?General/Constitutional:?pain?Both legs with walking, lumbar spine.?Chills?denies.?Fatigue?admits.?Fever?denies.?ENT:?Decreased hearing?denies.?Respiratory:?Cough?denies.?Cardiovascular:?Chest pain with exertion?denies.?Dyspnea on exertion?with moderate activity.?Shortness of breath?that is moderate.?Gastrointestinal:?Constipation?occasional.?Decreased appetite?denies.?Diarrhea?denies.?Heartburn?denies.?Nausea?denies.?Rectal bleeding?denies.?Vomiting?denies.?Hematology:?bruising?denies.?petechiae?denies.?Swollen glands?none have been noted.?Genitourinary:?Frequent urination?twice a night.?Musculoskeletal:?Muscle aches?denies.?Painful joints?denies.?Sciatica?denies.?Weakness?denies.?Skin:?Itching?denies.?Rash?denies.?Skin lesion(s)?denies.?Neurologic:?Difficulty speaking?denies.?Dizziness?denies.?Headache?denies.?Low back pain?that is chronic.?Psychiatric:?Depressed mood?denies.? * Medical History:? * Surgical History:?herniorrha phy appendectomy Hip replacement right Cataract surgery both eyes 2011colonoscopy, tubular adenoma 2003colonoscopy, negative 2007colonoscopy, negative 2012cardiac catheterization with stent insertion, inferior wall ischemia, 99% right coronary artery stenosis 2016left iliofemoral endarterectomy 2016right common femoral artery angioplasty 2016carpal tunnel surgery right hand, Instrum 04/2018carpal tunnel right hand 10/2019Angiogram Dr. Bear 1Lumbar L3-5 Laminectomy, partial facetectomy, foraminotomy, [facility], Dr Baltazar 3Angioplasty right peroneal and popliteal artery 1Right popliteal and peroneal artery atherectomy and angioplasty 12/2017Left femoral endarterectomy, right superficial Femoral artery atherectomy and angioplasty 06/2018 * Hospitalization/Major Diagno stic Procedure:?Denies Past Hospitalization * Family History:?Father: dece ased.?Mother: , diagnosed [...] years ?Additional Findings: Tobacco Non-User?Ex-cigarette smoker * Medications:?TakingLisinopri l-hydroCHLOROthiazide 12.5-10 MG Tablet 1 tablet Orally Once a dayMetoprolol Succinate ER SUC 50MG Tablet Extended Release 24 Hour TAKE 1 TABLET ONCE DAILY Orally Once a dayAspirin Adult Low Dose 81 MG Tablet Delayed Release 1 tablet Orally Once a dayNaproxen 500 MG Tablet 1 tablet with food or milk as needed Orally every 12 hrsAtorvastatin Calcium 80 MG Tablet 1 tablet Orally Once a dayEzetimibe 10 MG Tablet 1 tablet Orally Once a dayLisinopril 20 MG Tablet 1 tablet Orally Once a dayTaking Lisinopril-hydroCHLOROthiazide 12.5-10 MG Tablet 1 tablet Orally Once a dayTaking Metoprolol Succinate ER SUC 50MG Tablet Extended Release 24 Hour TAKE 1 TABLET ONCE DAILY Orally Once a dayTaking Aspirin Adult Low Dose 81 MG Tablet Delayed Release 1 tablet Orally Once a dayTaking Naproxen 500 MG Tablet 1 tablet with food or milk as needed Orally every 12 hrsTaking Atorvastatin Calcium 80 MG Tablet 1 tablet Orally Once a dayTaking Ezetimibe 10 MG Tablet 1 tablet Orally Once a dayTaking Lisinopril 20 MG Tablet 1 tablet Orally Once a dayDiscontinuedClopidogrel Bisulfate 75 MG Tablet 1 tablet Orally Once a dayMedication List reviewed and reconciled with the patientDiscontinued Clopidogrel Bisulfate 75 MG Tablet 1 tablet Orally Once a dayMedication List reviewed and reconciled with the patient * Allergies:?Percocet: nausea - Side EffectsBee Sting: hives - Allergyno[Allergies Verified] Objective: * Vitals:?Ht: 66, Wt:167, BMI: 26.95, BP:124/68, HR:68, Temp:97.9, Ht-cm: 167.64, Wt-k.75. * ???Past Orders: Imaging:XR lumbar spine 4V m in * Order Date 05/12/2024 08/08/2023 * Imaging:MR lumbar spine wo c on * Order Date 05/27/2024 06/07/2023 * Lab:Complete Blood Count Aut o Diff * Order Date 07/24/2024 04/21/2024 02/19/2024 White Blood Count 5.0 (Ref Range: 4.8-10.8 X10*3/uL) 5.2 (Ref Range: 4.8-10.8 X10*3/uL) 4.4?L (Ref Range: 4.8-10.8 X10*3/uL) Red Blood Count 3.68?L (Ref Range: 4.60-5.80 X10*6/uL) 3.91?L (Ref Range: 4.60-5.80 X10*6/uL) 3.90?L (Ref Range: 4.60-5.80 X10*6/uL) Hemoglobin 12.5?L (Ref Range: 14.0-18.0 g/dl) 13.0?L (Ref Range: 14.0-18.0 g/dl) 12.9?L (Ref Range: 14.0-18.0 g/dl) Hematocrit 37.0?L (Ref Range: 42.0-52.0 %) 39.0?L (Ref Range: 42.0-52.0 %) 38.6?L (Ref Range: 42.0-52.0 %) Mean Corpuscular Volume 100.5?H (Ref Range: 80.0-98.0 fL) 99.7?H (Ref Range: 80.0-98.0 fL) 99.0?H (Ref Range: 80.0-98.0 fL) Mean Corpuscular Hemoglobin 34.0?H (Ref Range: 27.0-33.0 pg) 33.2?H (Ref Range: 27.0-33.0 pg) 33.1?H (Ref Range: 27.0-33.0 pg) Mean Corpuscular HGB Conc 33.8 (Ref Range: 31.0-36.0 g/dl) 33.3 (Ref Range: 31.0-36.0 g/dl) 33.4 (Ref Range: 31.0-36.0 g/dl) Red Cell Distribution Width 13.3 (Ref Range: 11.0-16.0 %) 12.8 (Ref Range: 11.0-16.0 %) 13.2 (Ref Range: 11.0-16.0 %) Platelet Count 266 (Ref Range: 160-400 X10*3/uL) 297 (Ref Range: 160-400 X10*3/uL) 279 (Ref Range: 160-400 X10*3/uL) Mean Platelet Volume 9.7 (Ref Range: 9.4-12.4 fL) 9.8 (Ref Range: 9.4-12.4 fL) 9.4 (Ref Range: 9.4-12.4 fL) Neutrophils Percent Auto 48.1 (Ref Range: 45-73 %) 49.7 (Ref Range: 45-73 %) 47.0 (Ref Range: 45-73 %) Imm Gran Pct Auto 0.4 (Ref Range: 0.0-0.4 %) 0.2 (Ref Range: 0.0-0.4 %) 0.5?H (Ref Range: 0.0-0.4 %) Lymphocytes Percent Auto 28.7 (Ref Range: 20-40 %) 31.2 (Ref Range: 20-40 %) 30.6 (Ref Range: 20-40 %) Monocytes Percent Auto 12.5?H (Ref Range: 2-11 %) 10.9 (Ref Range: 2-11 %) 12.2?H (Ref Range: 2-11 %) Eosinophils Percent Auto 9.1?H (Ref Range: 0-4 %) 6.9?H (Ref Range: 0-4 %) 8.1?H (Ref Range: 0-4 %) Basophils Percent Auto 1.2 (Ref Range: 0-2 %) 1.1 (Ref Range: 0-2 %) 1.6 (Ref Range: 0-2 %) NRBC Pct Auto 0.0 (Ref Range: 0.0-0.2 /100WBC) 0.0 (Ref Range: 0.0-0.2 /100WBC) 0.0 (Ref Range: 0.0-0.2 /100WBC) Neutrophils Absolute Auto 2.4 (Ref Range: 2.0-8.3 x10*3/uL) 2.6 (Ref Range: 2.0-8.3 x10*3/uL) 2.1 (Ref Range: 2.0-8.3 x10*3/uL) Imm Gran Abs Auto 0.02 (Ref Range: 0.00-0.03 X10*3/uL) 0.01 (Ref Range: 0.00-0.03 X10*3/uL) 0.02 (Ref Range: 0.00-0.03 X10*3/uL) Lymphocytes Absolute Auto 1.4 (Ref Range: 1.2-4.9 X10*3/uL) 1.6 (Ref Range: 1.2-4.9 X10*3/uL) 1.4 (Ref Range: 1.2-4.9 X10*3/uL) Monocytes Absolute Auto 0.6 (Ref Range: 0.1-1.2 X10*3/uL) 0.6 (Ref Range: 0.1-1.2 X10*3/uL) 0.5 (Ref Range: 0.1-1.2 X10*3/uL) Eosinophils Absolute Auto 0.5?H (Ref Range: 0.0-0.4 X10*3/uL) 0.4 (Ref Range: 0.0-0.4 X10*3/uL) 0.4 (Ref Range: 0.0-0.4 X10*3/uL) Basophils Absolute Auto 0.1 (Ref Range: 0.0-0.2 X10*3/uL) 0.1 (Ref Range: 0.0-0.2 X10*3/uL) 0.1 (Ref Range: 0.0-0.2 X10*3/uL) NRBC Abs Auto 0.000 (Ref Range: 0.0-0.012 X10*3/uL) 0.000 (Ref Range: 0.0-0.012 X10*3/uL) 0.000 (Ref Range: 0.0-0.012 X10*3/uL) * Lab:Prostate Specific Antige n * Order Date 07/24/2024 04/21/2024 01/17/2023 Prostate Specific Antigen 2.80 (Ref Range: <0.05-4.0 ng/mL) 3.57 (Ref Range: <0.05-4.0 ng/mL) 3.34 (Ref Range: <0.05-4.0 ng/mL) * Lab:Lipid Panel * Order Date 07/24/2024 04/21/2024 02/19/2024 Triglycerides 60 [...] mg/dL) 52 (Ref Range: >40 mg/dL) * Lab:Comprehensive [place]. Pane l Fast * Order Date 07/24/2024 04/21/2024 02/19/2024 Sodium 137 [...] mg/dL) 9.6 (Ref Range: 8.4-10.2 mg/dL) * Examination: ???General Examination: ?GENERAL APPEARANCE:?pleasant, well nourished, well developed, in no acute distress, calm and relaxed , overweight , elderly man.?HEAD:?atraumatic, normocephalic.?EYES:?eomi, perrla, anicteric, conjugate.?EARS:?normal.?NOSE:?septum intact.?ORAL CAVITY:?normal, unremarkable.?NECK/THYROID:?no jugular venous distention, no carotid bruit, thyroid normal.?LYMPH NODES:?no enlarged lymph nodes,spleen normal.?SKIN:?no suspicious lesions, anicteric.?HEART:?no clicks, gallops, murmurs, or rubs, regular rhythm, S1, S2 normal, no s3, or vascular bruits.?LUNGS:?, diminished breath sounds throughout , no wheezes, rales, rhonchi , good air movement.?BREASTS:??no masses palpable bilaterally.?ABDOMEN:?bowel sounds normal, no ascites, no organomegaly, no mass , overweight.?RECTAL EXAM:?not examined.?MUSCULOSKELETAL:?extremities unremarkable, no clubbing, cyanosis or edema.?PERIPHERAL PULSES:?normal.?NEUROLOGIC:?alert and oriented, cranial nerves 2-12 grossly intact, deep tendon reflexes 2+ symmetrical, motor strength normal upper and lower extremities, sensory exam intact.?PSYCH:?alert, oriented , cognitive function intact , cooperative with exam , judgement and insight good , speech clear , thought process logical, goal directed.? Assessment: * Assessment: 1.?Osteoarthritis of right h ip - M16.11, He continues to have the same pain in his right hip with walking. He is able to ambulate but it is difficult. He does not wish to consider a surgical approach.?2.?Hyperlipidemia - E78.5, His total cholesterol level is 120. His lipids are in near target range. No change in his medications was made. His lipids were reviewed. He will have fasting lipid profile in the near future.?3.?Overweight - E66.3, His body mass index is 26. He is keeping his weight stable. We reviewed his diet and nutrition and weight loss strategy.?4. Spinal stenosis, lumbar - M48.06, The decompression surgery took place without side effects or incidents. He notices a substantial improvement in his back pain. The wound is well-healed. He reports much less pain with ambulation.?5.?Carpal tunnel syndrome, right upper limb - G56.01, He has seen the orthopedic surgeon and will undergo surgery for carpal tunnel syndrome on the right later this month. He is cleared for surgery at this time.?6.?Peripheral vascular disease - I73.9, He has significant bilateral arterial disease. In [...] March 2024 and was thought to be stable.?7.?History of bladder cancer - Z85.51, There was no sign of cancer on his exam today. He recently had a cystoscopy, March 2024 which showed no gross recurrence. Surveillance will continue?8.?Stage 2 chronic kidney disease - N18.2, His renal function has deteriorated. His BUN is now 32 with a creatinine 1.48. His GFR is 46. His fasting lipid profile is at target. He has a significant history of arterial disease. This continues to deteriorate he will see nephrology.? Plan: * Treatment: * Procedure Codes:? * Preventive Medicine:? ??Counseling:?Care goal follow-up plan:?Counseling for abnormal BMI given?Yes ?Above Normal BMI Follow-up?Dietary management education, guidance, and counseling ?Smoking/Tobacco Use?Patient counseled on the dangers of tobacco use and urged to quit.?08/01/2024 * Follow Up:?2 Months (Reason: OV) * Images: * Sign off status: Completed true * Provider:?Trevon Colby MD Date:?07/14 Generated for Printi ng/Faradhamesg/eTransmitting on:?11/13/2024 10:08 AM EST History and Physical Notes * HPI (History of Present Illness) Category Sub-Category Detail Notes COVID-19 Screening Questions Have you had any new onset fever, chills, cough, congestion, sore throat, shortness of breath, muscle aches?: No Have you been exposed to the virus withi n the last 10 days?: No Have you travelled internationally in e last 10 days?: No Have you been exposed to COVID-19 in the past?: Yes Examination Category Sub-Category Detail Notes General Examination GENERAL APPEARANCE: pleasant , well nourished, well developed, in no acute distress, calm and relaxed , overweight , elderly man HEAD: atraumatic, normocep halic EYES: eomi, perrla, anicte vinay, conjugate EARS: normal NOSE: septum intact NECK/THYROID: no jugular venous di stention, no carotid bruit, thyroid normal HEART: no clicks, gallops, murmurs, or rubs, regular rhythm, S1, S2 normal, no s3, or vascular bruits LUNGS: , diminished breath sounds throughout , no wheezes, rales, rhonchi , good air movement ABDOMEN: bowel sounds normal, no ascites, no organomegaly, no mass , overweight NEUROLOGIC: alert and oriented, cranial nerves 2-12 grossly intact, deep tendon reflexes 2+ symmetrical, motor strength normal upper and lower extremities, sensory exam intact SKIN: no suspicious lesion s, anicteric PERIPHERAL PULSES: normal BREASTS: no masses palpable b ilaterally MUSCULOSKELETAL: extremities unremark able, no clubbing, cyanosis or edema LYMPH NODES: no enlarged lymph no nacho,spleen normal RECTAL EXAM: not examined PSYCH: alert, oriented , co gnitive function intact , cooperative with exam , judgement and insight good , speech clear , thought process logical, goal directed ORAL CAVITY: normal, unremarkable
--- OUTSIDE RECORDS SUMMARY | 2024-11-13 10:08 | XMS_ITS ---
Author Organization Trevon Colby III, MD Address [address] [place] [address] DR AZUL Carmela [facility] [place] [address] Care Team Providers Care Feedlot Manager Name Role Phone Trevon Colby Primary Care Provider [phone] Allergies Allergen (clinical drug ingredient) Drug/Non Drug Allergy documented on EMR Reaction Allergy Type Onset Date Status Bee Sting hives Allergy Active acetaminophen / oxycodone Percocet nausea Drug Allergy Active Results Component Value Reference Range Notes URINE DIP STICK Reviewed date:05/01/2024 09:46:32 AM Interpretation: Performing Lab: Notes/Report: SG 1.020 1.005 - 1.025 pH 5.0 5.0 - 9.0 CLAIRE Negative Negative - NIT Negative Negative - PRO 15 Negative - Trace GLU Negative Negative - KET Negative Negative - UBG 0.2 0.1 - 1.8 THO Negative 0.2 - 1.3 BLD Negative Negative - REASON FOR VISIT Annual Exam Medications Medication SIG (Take, Route, Frequency, Duration) Notes Start Date End Date Status Naproxen 500 MG 1 tablet with food o r milk as needed Orally every 12 hrs Active Atorvastatin Calcium 80 MG 1 tablet Oral ly Once a day Active Ezetimibe 10 MG 1 tablet Orally Once a day Active Lisinopril 20 MG 1 tablet Orally Once a day Active Clopidogrel Bisulfate 75 MG 1 tablet Ora lly Once a day 03/30/2021 Active Metoprolol Succinate ER SUC 50MG TAKE 1 TABLET ONCE DAILY Orally Once a day Active Aspirin Adult [...] Additional Findings: Tobacco Non-User Ex-cigaret te smoker Alcohol Screen Question Answer Notes Did you have a drink containing alcohol in the p ast year? No Points 0 Interpretation Negative Vital Signs Temperature 97.2 degrees Fahrenheit 05/01/20 24 Blood pressure systolic 140 mm Hg 05/01/20 24 Blood pressure diastolic 65 mm Hg 024 Heart Rate 52 /min 05/01/2024 Height 66 in 05/01/2024 Weight 165 lbs 05/01/2024 BMI 26.63 kg/m2 05/01/2024 Encounters Encounter Location Date Provider Diagnosis Trevon Colby III, MD [address] [place] [address] [place] [address] 05/01/2024 Trevon Colby Hyperlipidemia E78.5 ; Overweight E66.3 ; BPH (benign prostatic hyperplasia) N40.0 ; Former smoker Z87.891 ; History of bladder cancer Z85.51 ; Osteoarthritis of right hip M16.11 ; Peripheral vascular disease I73.9 ; Spinal stenosis, lumbar M48.06 ; Coronary artery disease I25.10 ; Emphysema lung J43.9 and Stage 2 chronic kidney disease N18.2 Assessments Encounter Date Diagnosis (ICD Code) Assessment Notes Treat ment Notes Treatment Clinical Notes 05/01/2024 Hyperlipidemia (ICD-10 - E78.5) His lipids are in near target range. No change in his medications was made. His lipids were reviewed. He will have fasting lipid profile in the near future. 05/01/2024 Overweight (ICD-10 - E66.3) He has lost 14 pounds and his body mass index is 26. We reviewed his diet and nutrition and weight loss strategy. 05/01/2024 BPH (benign prostati c hyperplasia) (ICD-10 - N40.0) He rises from sleep twice a night to urinate. His PSA is normal. We discussed lifestyle modification as a way to reduce nocturia. 05/01/2024 Former smoker (ICD-1 0 - Z87.891) He is highly motivated not to smoke and we discussed means of preserving abstinence in times of stress. 05/01/2024 History of bladder cancer (ICD-10 - Z85.51) There was no sign of cancer on his exam today. He recently had a cystoscopy, March 2024 which showed no gross recurrence. Surveillance will continue 05/01/2024 Osteoarthritis of right hip (ICD-10 - M16.11) He continues to have the same pain in his right hip with walking. He is able to ambulate but it is difficult. He does not wish to consider a surgical approach. 05/01/2024 Peripheral vascular disease (ICD-10 - I73.9) He [...] 2024 and was thought to be stable. 05/01/2024 Spinal stenosis, lumbar (ICD-10 - M48.06) The decompression surgery took place without side effects or incidents. He notices a substantial improvement in his back pain. The wound is well-healed. 05/01/2024 Coronary artery disease (ICD-10 - I25.10) He has had no recent palpitations, angina, syncope or nausea. He has been compliant with all of his medications. He saw his senior front end web developer this month who found him to be stable and gave him an appointment to return in one year. 05/01/2024 Emphysema lung (ICD-10 - J43.9) He is no longer smoking. He is short of breath with sustained exertion but is comfortable breathing room air at rest. 05/01/2024 Stage 2 chronic kidney disease (ICD-10 - N18.2) His renal function has deteriorated. His BUN is now 43 with a creatinine 1.56. His fasting lipid profile is at target. He has a significant history of arterial disease. This continues to deteriorate he will see nephrology. Plan Of Treatment Medication Medication Name Sig Start Date Stop Date Notes Naproxen 500 MG 1 tablet with food o r milk as needed Orally every 12 hrs Atorvastatin Calcium 80 MG 1 tablet Orally Once a day Ezetimibe 10 MG 1 tablet Orally Once a day Lisinopril 20 MG 1 tablet Orally Once a day Clopidogrel Bisulfate 75 MG 1 tablet Orally Once a day Metoprolol Succinate ER SUC 50MG TAKE 1 TABLET ONCE DAILY Orally Once a day Aspirin Adult Low Dose 81 MG 1 tablet Orally Once a day Pending Test Test Name Order Date PROFILE, FASTING (COMPREHENSIVE METABOLI C) 05/01/2024 PSA, TOTAL 05/01/2024 CBC WITH AUTO DIFF 05/01/2024 Lipid Panel 05/01/2024 Next Appt Details Follow Up: 3 Months, Reason: OV Provider Name:Trevon Colby, 02/11/2025 10:00:00 AM, [address] [place] [address] JORGE ALBERTO DANIELSON, NICKO TONEY, [address], Provider Name:Trevon Colby, 05/05/2025 09:30:00 AM, [address] [place] [address] JORGE ALBERTO DANIELSON, NICKO TONEY, [address], Progress Notes * Spencer PR[birth year]EDOB:[birth year] (79 yo M)Acc No.[id number]:05/01/2024 Progress Notes Patient:?Spencer Price Provider:?Trevon Colby MD :1945???Age:78 Y???Sex:Male Blas e:05/01/2024 Address:[address] [place], [place] [id number] Subjective: * Chief Complaints: * ???Annual Exam * HPI: ???Depression Screening:? He returns to the office at the age of 82 his annual physical examination. On October 25, 2023 at [facility] he underwent an L3-L4 and L4-L5 laminectomy, foraminotomy, and partial facetectomy. This relieved his lower extremity pain to a great extent. In February 2024 he saw his urologist in follow-up of urothelial carcinoma. A cystoscopy was negative for bladder cancer. His last positive biopsy was in March 2020 which was followed by [facility]. On March 18, 2024 he saw his vascular surgeon, Dr. Bear. He was felt to be stable and received a follow-up appointment in one year. On May 01, 2024 he saw his senior front end web developer, Dr. Armstrong, who thought him to be stable. He has a history of coronary artery catheterization with stenting of the right coronary artery. He has been free of angina. He was stable today with mild claudication in the right leg. Blood work that was done April 21, 2024 showed white count 5.2 hematocrit 39 platelets 297 glucose 92 BUN 35 creatinine 1.45 total cholesterol 122 triglycerides 60 HDL 52 LDL 58 and PSA 3.57. He has been trying to reduce his weight and has lost 14 pounds. ?PHQ-9?Little interest or pleasure in doing things?Not at all ?Feeling down, depressed, or hopeless?Not at all ?Trouble falling or staying asleep, or sleeping too much?Not at all ?Feeling tired or having little energy?Not at all ?Poor appetite or overeating?Not at all ?Feeling bad about yourself or that you are a failure, or have let yourself or your family down?Not at all ?Trouble concentrating on things, such as reading the newspaper or watching television?Not at all ?Moving or speaking so slowly that other people could have noticed; or the opposite, being so fidgety or restless that you have been moving around a lot more than usual?Not at all ?Thoughts that you would be better off or of hurting yourself in some way?Not at all ?Total Score?0 ???COVID-19 Screening:?Questions?Have you experienced fever, chills, cough, sore throat, shortness of breath, difficulty breathing, muscle aches, loss of taste or smell??No ?Have you been exposed to the virus within the last 10 days??No ?Have you travelled internationally in the last 10 days??No ?Have you been exposed to COVID-19 in the past??No ???SDOH Questions:?SDOH Questions?In the past year have you been worried about losing your housing??No ?In the past year have you or any family members you live with been unable to get any of the following when it was really needed? Check all that apply:?None * ROS:?General/Constitutional:?pain?Lumbar back pain, claudication right lower extremity.?Chills?denies.?Fatigue?admits.?Fever?denies.?ENT:?Decreased hearing?denies.?Respiratory:?Cough?denies.?Cardiovascular:?Chest pain with exertion?denies.?Dyspnea on exertion?denies.?Shortness of breath?denies.?Gastrointestinal:?Constipation?occasional.?Decreased appetite?denies.?Diarrhea?denies.?Heartburn?denies.?Nausea?denies.?Rectal bleeding?denies.?Vomiting?denies.?Hematology:?bruising?denies.?petechiae?denies.?Swollen glands?none have been noted.?Genitourinary:?Frequent urination?twice [...] Bear 1Lumbar L3-5 Laminectomy, partial facetectomy, foraminotomy, [facility], Dr Baltazar 3Angioplasty right peroneal and popliteal artery 04/13/2021ight popliteal [...] 10 years ?Additional Findings: Tobacco Non-User?Ex-cigarette smoker ???Drugs/Alcohol:?Drugs?Have you used drugs other than those for medical reasons in the past 12 months??No ?Alcohol Screen?Did you have a drink containing alcohol in the past year??No ?Points?0 ?Interpretation?Negative * Medications:?TakingMetoprolo l Succinate ER SUC 50MG [...] MG Tablet 1 tablet Orally Once a dayClopidogrel Bisulfate 75 MG Tablet 1 tablet Orally Once a dayLisinopril 20 MG Tablet 1 tablet Orally Once a dayMedication List reviewed and reconciled with the patientTaking Metoprolol Succinate ER SUC 50MG Tablet Extended [...] Tablet 1 tablet Orally Once a dayTaking Clopidogrel Bisulfate 75 MG Tablet 1 tablet Orally Once a dayTaking Lisinopril 20 MG Tablet 1 tablet Orally Once a dayMedication List reviewed and reconciled with the patient * Allergies:?Percocet: nausea - Side EffectsBee Sting: hives - Allergyno[Allergies Verified] Objective: * Vitals:?Ht: 66, Wt:165, BMI: 26.63, BP:140/65, HR:52, Temp:97.2, Ht-cm: 167.64, Wt-k.84. * Examination: ???General Examination: ?GENERAL APPEARANCE:?pleasant, well nourished, well developed, in no acute distress, calm and relaxed , overweight , man.?HEAD:?atraumatic, normocephalic.?EYES:?eomi, perrla, anicteric, conjugate.?EARS:?normal.?NOSE:?septum intact.?ORAL CAVITY:?normal, unremarkable.?NECK/THYROID:?no jugular venous distention, no carotid bruit, thyroid normal.?LYMPH NODES:?no enlarged lymph nodes,spleen normal.?SKIN:?no suspicious lesions, anicteric.?HEART:?no clicks, gallops, murmurs, or rubs, regular rhythm, S1, S2 normal, no s3, or vascular bruits.?LUNGS:?clear to auscultation .?BREASTS:??no masses palpable bilaterally.?ABDOMEN:?bowel sounds normal, no ascites, no organomegaly, no mass , overweight.?RECTAL EXAM:?not examined.?MUSCULOSKELETAL:?Healed surgical incision both legs, diminished pulses both legs no open areas.?PERIPHERAL PULSES:?Carotid arteries normal, decreased pulses both lower extremities.?NEUROLOGIC:?alert and oriented, cranial nerves 2-12 grossly intact, deep tendon reflexes 2+ symmetrical, motor strength normal upper and lower extremities, sensory exam intact.?PSYCH:?alert, oriented.? Assessment: * Assessment: 1.?Hyperlipidemia - E78.5 (P rimary), His lipids are in near target range. No change in his medications was made. His lipids were reviewed. He will have fasting lipid profile in the near future. 2.?Overweight - E66.3, He has lost 14 pounds and his body mass index is 26. We reviewed his diet and nutrition and weight loss strategy.?3.?BPH (benign prostatic hyperplasia) - N40.0, He rises from sleep twice a night to urinate. His PSA is normal. We discussed lifestyle modification as a way to reduce nocturia.?4.?Former smoker - Z87.891, He is highly motivated not to smoke and we discussed means of preserving abstinence in times of stress.?5.?History of bladder cancer - Z85.51, There was no sign of cancer on his exam today. He recently had a cystoscopy, March 2024 which showed no gross recurrence. Surveillance will continue?6.?Osteoarthritis of right hip - M16.11, He continues to have the same pain in his right hip with walking. He is able to ambulate but it is difficult. He does not wish to consider a surgical approach.?7.?Peripheral vascular disease - I73.9, He has significant [...] March 2024 and was thought to be stable.?8.?Spinal stenosis, lumbar - M48.06, The decompression surgery took place without side effects or incidents. He notices a substantial improvement in his back pain. The wound is well-healed.?9.?Coronary artery disease - I25.10, He has had no recent palpitations, angina, syncope or nausea. He has been compliant with all of his medications. He saw his senior front end web developer this month who found him to be stable and gave him an appointment to return in one year.?10.?Emphysema lung - J43.9, He is no longer smoking. He is short of breath with sustained exertion but is comfortable breathing room air at rest.?11.?Stage 2 chronic kidney disease - N18.2, His renal function has deteriorated. His BUN is now 43 with a creatinine 1.56. His fasting lipid profile is at target. He has a significant history of arterial disease. This continues to deteriorate he will see nephrology.? Plan: * Treatment: 2.?Overweight?LAB: PROFILE, FASTING (COMPREHENSIVE METABOLIC) ?LAB: PSA, TOTAL ?LAB: CBC WITH AUTO DIFF ?LAB: Lipid Panel 3.?BPH (benign prostatic hyp erplasia)?LAB: PROFILE, FASTING (COMPREHENSIVE METABOLIC) ?LAB: PSA, TOTAL ?LAB: CBC WITH AUTO DIFF ?LAB: Lipid Panel * Labs:? * ?Lab: URINE DIP STICK ? Value Reference Range ?SG 1.020 1.005 - 1.025 * ?pH 5.0 5.0 - 9.0 * ?CLAIRE Negative Negative - * ?NIT Negative Negative - * ?PRO 15 Negative - Trac e * ?GLU Negative Negative - * ?KET Negative Negative - * ?UBG 0.2 0.1 - 1.8 * ?THO Negative 0.2 - 1.3 * ?BLD Negative Negative - * Procedure Codes:?90166 URINE -NO MICRO * Preventive Medicine:? ??Counseling:?Care goal follow-up plan:?Counseling for abnormal BMI given?Yes ?Above Normal BMI Follow-up?Dietary management education, guidance, and counseling, Dietary needs education, Exercise promotion: strength training, Exercise promotion: stretching, Feeding regime, Giving encouragement to exercise, Lifestyle education regarding diet, Nutrition / feeding management, Nutrition therapy, Prescribed activity/exercise education, Prescribed diet education, Prescribed dietary intake, Special diet education, Weight monitoring , Intervention, Order not done: Medical or Other reason not done ?Smoking/Tobacco Use?Patient counseled on the dangers of tobacco use and urged to quit.?05/01/2024 * Follow Up:?3 Months (Reason: OV) * Images: * Sign off status: Completed true * Provider:?Trevon Colby MD Date:?04/13 Generated for Allison jimenez/Bhavin/Demetriaitting on:?11/13/2024 10:08 AM EST History and Physical Notes * HPI (History of Present Illness) Category Sub-Category Detail Notes Depression Screening PHQ-9 Little inte rest or pleasure in doing things: Not at all Feeling down, depressed, or hopeless: No t at all Trouble falling or staying asleep, or sl eeping too much: Not at all Feeling tired or having little energy: N ot at all Poor appetite or overeating: Not at all Feeling bad about yourself o r that you are a failure, or have let yourself or your family down: Not at all Trouble concentrating on thi ngs, such as reading the newspaper or watching television: Not at all Moving or speaking so slowly that other people could have noticed; or the opposite, being so fidgety or restless that you have been moving around a lot more than usual: Not at all Thoughts that you would be b payton off or of hurting yourself in some way: Not at all Total Score: 0 COVID-19 Screening Questions Have you had any new onset fever, chills, cough, congestion, sore throat, shortness of breath, muscle aches?: No Have you been exposed to the virus withi n the last 10 days?: No Have you travelled internationally in [facility] last 10 days?: No Have you been exposed to COVID-19 in the past?: No SDOH Questions SDOH Questions In the past year have you been worried about losing your housing?: No In the past year have you or any family members you live with been unable to get any of the following when it was really needed? Check all that apply:: None Examination Category Sub-Category Detail Notes General Examination GENERAL APPEARANCE: pleasant , well nourished, well developed, in no acute distress, calm and relaxed , overweight , man HEAD: atraumatic, normocep halic EYES: eomi, perrla, anicte vinay, conjugate EARS: normal NOSE: septum intact NECK/THYROID: no jugular venous di stention, no carotid bruit, thyroid normal HEART: no clicks, gallops, murmurs, or rubs, regular rhythm, S1, S2 normal, no s3, or vascular bruits LUNGS: clear to auscultatio n ABDOMEN: bowel sounds normal, no ascites, no organomegaly, no mass , overweight NEUROLOGIC: alert and oriented, cranial nerves 2-12 grossly intact, deep tendon reflexes 2+ symmetrical, motor strength normal upper and lower extremities, sensory exam intact SKIN: no suspicious lesion s, anicteric PERIPHERAL PULSES: Carotid arteries nor mal, decreased pulses both lower extremities BREASTS: no masses palpable b ilaterally MUSCULOSKELETAL: Healed surgical inci bhumi both legs, diminished pulses both legs no open areas LYMPH NODES: no enlarged lymph no nacho,spleen normal RECTAL EXAM: not examined PSYCH: alert, oriented ORAL CAVITY: normal, unremarkable
--- OUTSIDE RECORDS SUMMARY | 2024-11-13 10:09 | XMS_ITS ---
Author Name [facility] [place] [facility] Address [address] [place] [address] Care Team Providers Care Radiology Technologist Name Role Phone LAURIE SANCHEZ Primary Care Provider Unav ailable Insurance Providers: All historical and current Section Date Range: From patient's date of to the date document was created. This section includes the names of all active insurance providers for the patient. Insurance Provider Type of Coverage Plan Name Start of Policy Coverage End of Policy Coverage Group Number Member ID Insurance Provider's Telephone Number Policy Weiss's Name Patient's Relationship to Policy Weiss [facility] (WNR) MEDICARE ADVANTAGE [facility] (WNR) Nov 12, 2017 [id number] Eduar COMBS PATIENT [facility] SPECIAL CLASS [facility] [place] March 27, 2018 STACY CHURCHILL [id number] Eduar COMBS PATIENT Selected Encounter This section includes the information on record at [place] for the Encounter. Date/Time Encounter Type Encounter Description Reason Pro vider Source Mar 05, 2024 12:00 PM Outpatient Encounter COMMUNITY CARE CONSULT IHE Encounter Template Text not used by [facility] Plan of Treatment: Future Appointments (+ 6 months) and Future Tests (+/- 45 days) The Plan of Treatment section includes future care activities for the patient from all [facility] treatmentfacilities. This section includes future appointments and future orders which are active, pending or scheduled. Future Appointments This section includes appointments that were scheduled to occur 6 months from the date of the Encounter, up to a maximum of 20 appointments. The data comes from all [place] treatment facilities. Appointment Date/Time Appointment Type Appointme nt Facility Name March 24, 2024 08:30 AM [facility] [place] [facility] May 01, 2024 08:00 AM AM[facility]ULATORY [facility]ICINE [facility] [place] [facility] May 12, 2024 07:00 AM AMBULATORY [facility] MEDICINE [facility] [place] [facility] Jun 26, 2024 09:30 AM AMBULATORY [facility] MEDICINE [facility] [place] [facility] Sep 02, 2024 09:45 AM AMBULATORY - NONE [facility] [place] [facility] Social History: Smoking Status (Most current) and Tobacco Use (All prior to encounter date) This section includes the most current, and the historical, smoking and tobacco- related health factors from the [place] facility where the Encounter took place. Current Smoking Status This section includes the most current smoking, or tobacco-related health factor, from the [place] facility where the Encounter took place. Date/Time Current Smoking Status Comment Facil ity March 29, 2023 08:30 AM VA-TOBACCO FORMER USER [place] [facility] [place] [facility] Tobacco Use History This section includes a history of the smoking, or tobacco-related health factors, that were collected on or before the date of the Encounter. The data comes from the [place] facility where the Encounter took place. Date/Time Smoking Status/Tobacco Use Comment F acility March 29, 2023 08:30 AM VA-TOBACCO QUIT 15 YRS OR MORE [facility] [place] [facility] Feb 10, 2022 08:30 AM VA-TOBACCO FORMER USER [facility] [place] [facility] Feb 10, 2022 08:30 AM VA-TOBACCO QUIT 15 YRS OR MORE [facility] [place] [facility] Jan 14, 2021 09:00 AM VA-TOBACCO FORMER USER [facility] [place] [facility] Jan 14, 2021 09:00 AM VA-TOBACCO QUIT 15 YRS OR MORE [facility] [place] [facility] Dec 23, 2018 09:29 AM VA-TOBACCO FORMER USER [facility] [place] [facility] Dec 23, 2018 09:29 AM VA-TOBACCO QUIT 15 YRS OR MORE [facility] Dec 23, 2018 08:28 AM [facility] Dec 23, 2018 08:28 AM VA-TOBACCO QUIT 15 YRS OR MORE [facility] Jun 22, 2017 09:22 AM LIFETIME NON-TOBACCO USER [facility] Encounter Notes: All associated encounter notes This section contains the clinical notes associated to the Encounter. Date/Time Encounter Note(s) Provider Source Mar 05, 2024 12:00 PM NONVA CONSULT: LOCAL TITLE: COMMUNITY CARE-CONSULT RESULT NOTE STANDARD TITLE: NONVA CONSULT DATE OF NOTE: MAR 05, 2024@12:00 ENTRY DATE: MARCH 31, 2024@12:55:05 AUTHOR: NARAYAN CURRAN EXP COSIGNER: URGENCY: STATUS: COMPLETED VistA Imaging - Scanned Document SCANNED DOCUMENT SIGNATURE NOT REQUIRED Electronically Filed: 03/31/2024 by: NARAYAN CURRAN ACCOUNTS PAYABLE ACCOUNTANT NARAYAN CURRAN [facility]
--- OUTSIDE RECORDS SUMMARY | 2024-11-13 10:09 | XMS_ITS | Continuity of Care Document ---
Author Name [facility] Organization [facility] Care Team Providers Care Editorial Assistant Name Role Phone [facility] Unavailable Unavailable Problems Combined list of problems from Department of Defense and Veterans Affairs facilities. It does not include entries that were removed or entered in error. Problem Status Onset Date Problem Type Date of Resolution Comments Source Admits alcohol use Active Condition [facility] BPH - Benign prostatic hypertrophy Active Condition [facility] CAD - Coronary Artery Disease ([facility] [id number]) Active Condition Jun 17, 2022 Entered By: PAU MARY Comment: Following with Dr. Armstrong on lieflong asa, cont atorva and zetia with well optimized LDL [facility] Carcinoma of bladder Active Condition Dec 23, 2018 Entered By: MARI SCHMID Comment: BCG- teatment ( ) cystoscopy scheduled 12/26/18 and 01/17/19 [facility] [place] [facility] Degenerative disc disease Active Condition [facility] H/O cardiac surgery Active Condition Jun 22, 2017 Entered By: MARI SCHMID Comment: stent 2015 [facility] [place] [facility] History of - surgery Active Condition Jun 22, 2017 Entered By: MARI SCHMID Comment: cardiac- stent 2017 Entered By: MARI SCHMID Comment: Vascular- 12/19/17 repeated aortogram bilat - extremity left fem endarectomy/ right angio oand arthrectomy- right legAug 2016 Entered By: MARI SCHMID Comment: right hip replacement-Au g 2016 Entered By: MARI SCHMID Comment: General- righ ting hernia repair/ appy/ T an AAug 2016 Entered By: MARI SCHMID Comment: EYE- Cataract- both eyesDec 28, 2017 Entered By: MARI SCHMID Comment: 10/2018 Colonscopy - polyps ( 5 yrs )- [facility] 2018 Entered By: MARI SCHMID Comment: 2018 bilat vein stripping ( per pt report)Dec 23, 2018 Entered By: MARI SCHMID Comment: 2018- Left hand Carpel freddie.Jan 16, 2020 Entered By: MARI SCHMID Comment: CarpelT repair 2019- [facility] History of right hip replacement Active Condition [facility] Hyperlipidemia Active Condition [facility] Hypertension Active Condition [facility] Lumbosacral neuritis Active Condition May 16, 2023 Entered By: Zach SANCHEZ Comment: vet w/ hx of bladder cancer/ neurtitis sx down legs/ PCP wants MRI of lumbar spine [facility] PAD - Peripheral arterial disease Active Condition Dec 28 8 Entered By: MARI SCHMID Comment: 2nd aortogram- bil 12/19/17Au2021 Entered By: PAU MARY Comment: with caulidcation, though improved, following with Vascular-- Dr. Bear- has required multiple LE interventions, Vascular considering switchign plavix to xarelto 2.5mg bid [facility] Screening status Active Condition Dec 28, 2017 Entered By: MARI SCHMID Comment: Colonoscopy 2018 ( no result ) - per pt repeat in 5 yrs.Dec 28, 2017 Entered By: MARI SCHMID Comment: aortogram bilateral lower legs - [facility] 12/19/17 - DR SYLWIA STROUD [facility] [place] [facility] Under care of multiple providers Active Condition Dec 28, 2017 Entered By: MARI SCHMID Comment: non va- Dr Trevon Hill ( in office and the [facility])Jun 28, 2017 Entered By: MARI SCHMID Comment: Urology- Dr Petit 2018 Entered By: MARI SCHMID Comment: [facility]- ( eye/ PODIATRY) [facility] Diagnosis: ICD-10-CM K03.6 Deposits [accretions] on teeth Active Diagnosis [facility] Diagnosis: ICD-10-CM I10 Essential (primary) hypertension Active Diagnosis [facility] Diagnosis: ICD-10-CM M54.17 Radiculopathy, lumbosacral region Active Diagnosis [facility] Medications Combined list of outpatient medications from Department of Defense and [facility] facilities.Medications provided include 1) outpatient medications from the last 15 months, and 2) patient-reported medications. Medication Details Route Status Patient Instructions Prescription Expires Prescription Number Last Dispense Date Ordering Provider Order Date Order Qty Source ASPIRIN 81MG TAB,EC TAKE ONE TABLET BY MOUTH ONCE DAILY TO PREVENT STROKE/H EART ATTACK ORAL 03/29/2024 [id number] ERON MANUEL 2022 120 [facility] ATORVASTATI N CA 80MG TAB TAKE ONE TABLET BY MOUTH ONCE DAILY FOR CHOLESTE ROL ORAL ACTIVE 03/25/2025 [id number] ERON MANUEL 2023 90 [facility] ATORVASTATI N CA 80MG TAB TAKE ONE TABLET BY MOUTH ONCE DAILY FOR CHOLESTE ROL ORAL DISCONT INUED (EDIT) 03/29/2024 [id number] ERON MANUEL 2022 90 [facility] CLOPIDOGREL BISULFATE 75MG TAB TAKE ONE TABLET BY MOUTH ONCE DAILY FOR MYOCARDI AL REINFARC TION PREVENTI ON ORAL ACTIVE 03/25/2025 [id number] ERON MANUEL 2023 90 [facility] CLOPIDOGREL BISULFATE 75MG TAB TAKE ONE TABLET BY MOUTH ONCE DAILY ORAL DISCONT INUED (EDIT) 03/29/2024 [id number] ERON MANUEL 2022 90 [facility] EZETIMIBE 10MG TAB TAKE ONE TABLET BY MOUTH ONCE DAILY TO LOWER CHOLESTE ROL ORAL ACTIVE 03/25/2025 [id number] ERON MANUEL 2023 90 [facility] EZETIMIBE 10MG TAB TAKE ONE TABLET BY MOUTH ONCE DAILY TO LOWER CHOLESTE ROL ORAL DISCONT INUED (EDIT) 03/29/2024 [id number] ERON MANUEL 2022 90 [facility] HYDROCHLORO THIAZIDE 12.5MG/NISHA NOPRIL 10MG TAB TAKE 1 TABLET BY MOUTH AT BEDTIME ORAL DISCONT INUED (EDIT) 03/29/2024 [id number] ERON MANUEL 2022 90 [facility] HYDROCHLORO THIAZIDE 12.5MG/NISHA NOPRIL 20MG TAB TAKE 1 TABLET BY MOUTH AT BEDTIME FOR HIGH BLOOD PRESSURE (NOTE DOSE) ORAL ACTIVE 03/25/2025 [id number] ERON MANUEL 2023 90 [facility] METOPROLOL SUCCINATE 50MG TAB,SA TAKE ONE TABLET BY MOUTH ONCE DAILY FOR BLOOD PRESSURE /HEART ORAL ACTIVE 03/25/2025 [id number] ERON MANUEL 2023 90 [facility] METOPROLOL SUCCINATE 50MG TAB,SA TAKE ONE TABLET BY MOUTH ONCE DAILY FOR BLOOD PRESSURE /HEART ORAL DISCONT INUED (EDIT) 03/24/2024 [id number] ERON MANUEL 2022 90 [facility] NAPROXEN 500MG TAB TAKE ONE TABLET BY MOUTH TWICE DAILY NEEDED FOR PAIN TAKE WITH FOOD ORAL 10/12/2024 [id number] [place] ERON LAURA BINU Bradley 2023 90 [facility] NAPROXEN 500MG TAB TAKE ONE TABLET BY MOUTH TWICE DAILY NEEDED TAKE WITH FOOD; FOR PAIN/INF LAMMATIO N/SWELLTommy NG ORAL 02/10/2024 [id number] 4 [place] LAURAERONDarwin Bradley 2022 180 [facility] SODIUM FLUORIDE 1.1% TOOTHPASTE BRUSH SMALL AMOUNT TO TEETH TWICE DAILY FOR TOOTH DECAY PREVENTI ON DENTAL ACTIVE 09/03/2025 [id number] MIKAELA HEBERT 2023 51 [facility] SODIUM FLUORIDE 1.1% TOOTHPASTE BRUSH SMALL AMOUNT TO TEETH TWICE DAILY DENTAL 06/01/2024 [id number] 4 CR[facility] MAHER 2022 [facility] Allergies, Adverse Reactions, Alerts Combined list of allergies from Department of Defense and Veterans Affairs facilities. It does not include entries that were removed or entered in error. Substance Category Reaction Severity Reaction type Status Date Reported Comments Source PERCOCET Propensity to adverse reactions to drug (finding) Sweating active 7 [facility] Immunizations Combined list of available immunizations from the Department of Defense and Veterans Affairs facilities. Immunization Series Date Given Administered By Site Reaction Lot Number CVX Code Drug Grain Operator Status Comments Source INFLUENZA, UNSPECIFIED FORMULATION 2022 88 complet ed [facility] [place] [facility] INFLUENZA, UNSPECIFIED FORMULATION 2021 88 complet ed [facility] COVID-19 (MODERNA), MRNA, LNP-S, PF, 100 MCG/0.5ML DOSE OR 50 MCG/0.25ML DOSE 3 2020 207 complet ed [facility] COVID-19 (MODERNA), MRNA, LNP-S, PF, 100 MCG/0.5 ML DOSE 2 2020 207 complet ed MOD; [id number]; 1 [facility] COVID-19 (MODERNA), MRNA, LNP-S, PF, 100 MCG/0.5 ML DOSE 1 2020 207 complet ed MOD; [id number]; 1 [facility] INFLUENZA, INJECTABLE, QUADRIVALENT, PRESERVATIVE FREE 2019 150 complet ed [facility] PNEUMOCOCCAL POLYSACCHARID E PPV23 2019 33 complet ed [facility] ZOSTER RECOMBINANT 1 2019 187 complet ed [facility] TDAP 2019 115 complet ed Site: Right Deltoid [facility] ZOSTER RECOMBINANT 1 2019 187 complet ed [facility] INFLUENZA, SEASONAL, INJECTABLE 2018 141 complet ed [facility] INFLUENZA, SEASONAL, INJECTABLE 2017 141 complet ed [facility] INFLUENZA, SEASONAL, INJECTABLE [address] Hill office [facility] PNEUMOCOCCAL CONJUGATE PCV 13 2016 133 complet ed [facility] ZOSTER (SHINGLES) (HISTORICAL) 2016 121 complet ed Proximal Left Arm [facility] FLU,3 YRS (HISTORICAL) [address] Sorensen office [facility] Results Combined list of recent chemistry, hematology and other laboratory results from Department of Defense and Veterans Affairs, ranging from 15 months to all on record, depending upon the facility. Order Name Results Value Reference Range Date Interpretation Specimen Comments Source MICROALBU MIN CREATININ E RATIO PANEL MICROALBUMI N/CREATININ E [MASS RATIO] IN URINE 13.4 mg/g 0 - 29.9 09/02 Specimen Type: URINE No comment entered. Ordering Provider: LAURIE CHINCHILLA Report Released Date/Time: Aug 28, 2024 09:07 AM Reporting Lab: [facility] [place] [facility] [address] [facility] [address] Performing Lab: [facility] [place] [facility] [address] [facility] [address] [facility] MICROALBU MIN CREATININ E RATIO PANEL MICROALBUMI N [MASS/VOLUM E] IN URINE 0.7 mg/dL 09/02 Specimen Type: URINE No comment entered. Ordering Provider: LAURIE CHINCHILLA Report Released Date/Time: Aug 28, 2024 09:07 AM Reporting Lab: [facility] [place] [facility] [address] [facility] [address] Performing Lab: [facility] [place] [facility] [address] [facility] [address] [facility] MICROALBU MIN CREATININ E RATIO PANEL CREATININE [MASS/VOLUM E] IN URINE 52.17 mg/dL 09/02 Specimen Type: URINE No comment entered. Ordering Provider: LAURIE CHINCHILLA Report Released Date/Time: Aug 28, 2024 09:07 AM Reporting Lab: [facility] [place] [facility] [address] [facility] [address] Performing Lab: [facility] [place] [facility] [address] [facility] [address] [facility] BASIC METABOLIC PANEL (non-fast ing) UREA NITROGEN [MASS/VOLUM E] IN SERUM OR PLASMA 33 mg/dL 7 - 25 09/02 H Specimen Type: SERUM No comment entered. Ordering Provider: LAURIE CHINCHILLA Report Released Date/Time: Aug 28, 2024 09:07 AM Reporting Lab: [facility] [place] [facility] [address] [facility] [address] Performing Lab: [facility] [place] [facility] [address] [facility] [address] [facility] BASIC METABOLIC PANEL (non-fast ing) GLUCOSE [MASS/VOLUM E] IN SERUM OR PLASMA 97 mg/dL 65 - 100 09/02 Specimen Type: SERUM No comment entered. Ordering Provider: LAURIE CHINCHILLA Report Released Date/Time: Aug 28, 2024 09:07 AM Reporting Lab: [facility] [place] [facility] [address] [facility] [address] Performing Lab: [facility] [place] [facility] [address] [facility] [address] [facility] BASIC METABOLIC PANEL (non-fast ing) SODIUM [MOLES/VOLU ME] IN SERUM OR PLASMA 136 mmol/L 135 - 145 09/02 Specimen Type: SERUM No comment entered. Ordering Provider: LAURIE CHINCHILLA Report Released Date/Time: Aug 28, 2024 09:07 AM Reporting Lab: [facility] [place] [facility] [address] [facility] [address] Performing Lab: [facility] [place] [facility] [address] [facility] [address] [facility] BASIC METABOLIC PANEL (non-fast ing) POTASSIUM [MOLES/VOLU ME] IN SERUM OR PLASMA 4.7 mmol/L 3.5 - 5.0 09/02 Specimen Type: SERUM No comment entered. Ordering Provider: LAURIE CHINCHILLA Report Released Date/Time: Aug 28, 2024 09:07 AM Reporting Lab: [facility] [place] [facility] [address] [facility] [address] Performing Lab: [facility] [place] [facility] [address] [facility] [address] [facility] BASIC METABOLIC PANEL (non-fast ing) CHLORIDE [MOLES/VOLU ME] IN SERUM OR PLASMA 106 mmol/L 100 - 110 09/02 Specimen Type: SERUM No comment entered. Ordering Provider: LAURIE CHINCHILLA Report Released Date/Time: Aug 28, 2024 09:07 AM Reporting Lab: [facility] [place] [facility] [address] [facility] [address] Performing Lab: [facility] [place] [facility] [address] [facility] [address] [facility] BASIC METABOLIC PANEL (non-fast ing) CARBON DIOXIDE, TOTAL [MOLES/VOLU ME] IN SERUM OR PLASMA 24 meq/L 20 - 30 09/02 Specimen Type: SERUM No comment entered. Ordering Provider: LAURIE CHINCHILLA Report Released Date/Time: Aug 28, 2024 09:07 AM Reporting Lab: [facility] [address] [facility] [address] Performing Lab: [facility] [address] [facility] [address] [facility] BASIC METABOLIC PANEL (non-fast ing) CREATININE [MASS/VOLUM E] IN SERUM OR PLASMA 1.40 mg/dL 0.50 - 1.40 09/02 Specimen Type: SERUM No comment entered. Ordering Provider: LAURIE CHINCHILLA Report Released Date/Time: Aug 28, 2024 09:07 AM Reporting Lab: [facility] [address] [facility] [address] Performing Lab: [facility] [address] [facility] [address] [facility] BASIC METABOLIC PANEL (non-fast ing) GLOMERULAR FILTRATION RATE/1.73 SQ M.PREDICTED [VOLUME RATE/AREA] IN SERUM, PLASMA OR BLOOD BY CREATININE- BASED FORMULA (CKD-EPI 2020) 50 mL/min 60 09/02 L Specimen Type: SERUM No comment entered. Ordering Provider: LAURIE CHINCHILLA Report Released Date/Time: Aug 28, 2024 09:07 AM Reporting Lab: [facility] [address] [facility] [address] Performing Lab: [address] [address] [facility] LIPID PANEL, NON FASTING CHOLESTEROL [MASS/VOLUM E] IN SERUM OR PLASMA 128 mg/dL 09/02 Specimen Type: SERUM No comment entered. Ordering Provider: LAURIE CHINCHILLA Report Released Date/Time: Aug 28, 2024 09:07 AM Reporting Lab: [facility] [place] [facility] [address] [facility] [address] Performing Lab: [facility] [place] [facility] [address] [facility] [address] [facility] LIPID PANEL, NON FASTING TRIGLYCERID E [MASS/VOLUM E] IN SERUM OR PLASMA 69 mg/dL 0 - 150 09/02 Specimen Type: SERUM No comment entered. Ordering Provider: LAURIE CHINCHILLA Report Released Date/Time: Aug 28, 2024 09:07 AM Reporting Lab: [facility] [place] [facility] [address] [facility] [address] Performing Lab: [facility] [place] [facility] [address] [facility] [address] [facility] LIPID PANEL, NON FASTING CHOLESTEROL IN LDL [MASS/VOLUM E] IN SERUM OR PLASMA BY CALCULATION 60 mg/dL 0 - 129 09/02 Specimen Type: SERUM No comment entered. Ordering Provider: LAURIE CHINCHILLA Report Released Date/Time: Aug 28, 2024 09:07 AM Reporting Lab: [facility] [place] [facility] [address] [facility] [address] Performing Lab: [facility] [place] [facility] [address] [facility] [address] [facility] LIPID PANEL, NON FASTING CHOLESTEROL .TOTAL/CHOL ESTEROL IN HDL [MASS RATIO] IN SERUM OR PLASMA 2.4 09/02 Specimen Type: SERUM No comment entered. Ordering Provider: LAURIE CHINCHILLA Report Released Date/Time: Aug 28, 2024 09:07 AM Reporting Lab: [facility] [place] [facility] [address] [facility] [address] Performing Lab: [facility] [place] [facility] [address] [facility] [address] [facility] [place] [facility] LIPID PANEL, NON FASTING CHOLESTEROL IN HDL [MASS/VOLUM E] IN SERUM OR PLASMA 54 mg/dL 40 - 60 09/02 Specimen Type: SERUM No comment entered. Ordering Provider: LAURIE CHINCHILLA Report Released Date/Time: Aug 28, 2024 09:07 AM Reporting Lab: [facility] [address] [facility] [address] Performing Lab: [address] [address] [facility] TSH THYROTROPIN [UNITS/VOLU ME] IN SERUM OR PLASMA 1.43 u[IU]/ mL 0.35 - 5.00 09/02 Specimen Type: SERUM No comment entered. Ordering Provider: LAURIE CHINCHILLA Report Released Date/Time: Aug 28, 2024 09:07 AM Reporting Lab: [address] [address] Performing Lab: [address] [address] [facility] HEMOGLOBI N A1C PANEL HEMOGLOBIN A1C/HEMOGLO BIN.TOTAL IN BLOOD BY HPLC 5.1 4.0 - 5.6 09/02 Specimen Type: BLOOD Comment: Values obtained from A1C measurement s can vary. For atypical A1C assays, a reported value of 7.0 could actually be between 6.72 and 7.28 if measured by a reference method. A reported value of 9.0 could actually be between 8.73 and 9.27. Ref: http://www. ngsp.org/[place] Pdata.asp Ordering Provider: LAURIE CHINCHILLA Report Released Date/Time: Aug 28, 2024 09:07 AM Reporting Lab: [address] [address] Performing Lab: [address] [address] [facility] CBC AND DIFF (AUTO) LEUKOCYTES [#/VOLUME] IN BLOOD BY AUTOMATED COUNT 8.50 10*3/u L 4.50 - 11.00 09/02 Specimen Type: BLOOD No comment entered. Ordering Provider: LAURIE CHINCHILLA Report Released Date/Time: Aug 28, 2024 09:07 AM Reporting Lab: [facility] [place] [facility] [address] [facility] [address] Performing Lab: [facility] [place] [facility] [address] [facility] [address] [facility] [place] [facility] CBC AND DIFF (AUTO) ERYTHROCYTE S [#/VOLUME] IN BLOOD BY AUTOMATED COUNT 3.92 10*6/u L 4.23 - 5.66 09/02 L Specimen Type: BLOOD No comment entered. Ordering Provider: LAURIE CHINCHILLA Report Released Date/Time: Aug 28, 2024 09:07 AM Reporting Lab: [facility] [place] [address] [address] Performing Lab: [facility] [place] [address] [address] [facility] CBC AND DIFF (AUTO) HEMOGLOBIN [MASS/VOLUM E] IN BLOOD 12.9 g/dL 12.8 - 17 09/02 Specimen Type: BLOOD No comment entered. Ordering Provider: LAURIE CHINCHILLA Report Released Date/Time: Aug 28, 2024 09:07 AM Reporting Lab: [facility] [place] [address] [address] Performing Lab: [facility] [place] [address] [address] [facility] [place] [facility] CBC AND DIFF (AUTO) HEMATOCRIT [VOLUME FRACTION] OF BLOOD BY AUTOMATED COUNT 38.0 39.2 - 50.4 09/02 L Specimen Type: BLOOD No comment entered. Ordering Provider: LAURIE CHINCHILLA Report Released Date/Time: Aug 28, 2024 09:07 AM Reporting Lab: [facility] [place] [address] [address] Performing Lab: [facility] [place] [address] [address] [facility] CBC AND DIFF (AUTO) MCV [ENTITIC VOLUME] BY AUTOMATED COUNT 96.9 fL 82 - 99 09/02 Specimen Type: BLOOD No comment entered. Ordering Provider: LAURIE CHINCHILLA Report Released Date/Time: Aug 28, 2024 09:07 AM Reporting Lab: [facility] [place] [facility] [address] [facility] [address] Performing Lab: [facility] [place] [facility] [address] [facility] [address] [facility] CBC AND DIFF (AUTO) MCHC [MASS/VOLUM E] BY AUTOMATED COUNT 33.9 g/dL 30.8 - 35.1 09/02 Specimen Type: BLOOD No comment entered. Ordering Provider: LAURIE CHINCHILLA Report Released Date/Time: Aug 28, 2024 09:07 AM Reporting Lab: [facility] [place] [facility] [address] [facility] [address] Performing Lab: [facility] [place] [facility] [address] [facility] [address] [facility] [facility] CBC AND DIFF (AUTO) PLATELETS [#/VOLUME] IN BLOOD BY AUTOMATED COUNT 259 10*3/u L 140 - 360 09/02 Specimen Type: BLOOD No comment entered. Ordering Provider: LAURIE CHINCHILLA Report Released Date/Time: Aug 28, 2024 09:07 AM Reporting Lab: [facility] [place] [facility] [address] [facility] [address] Performing Lab: [facility] [place] [facility] [address] [facility] [address] [facility] CBC AND DIFF (AUTO) ERYTHROCYTE DISTRIBUTIO N WIDTH [RATIO] BY AUTOMATED COUNT 12.2 12.0 - 16.0 09/02 Specimen Type: BLOOD No comment entered. Ordering Provider: LAURIE CHINCHILLA Report Released Date/Time: Aug 28, 2024 09:07 AM Reporting Lab: [facility] [place] [facility] [address] [facility] [address] Performing Lab: [facility] [place] [facility] [address] [facility] [address] [facility] CBC AND DIFF (AUTO) MONOCYTES [#/VOLUME] IN BLOOD BY AUTOMATED COUNT 0.76 10*3/u L 0.30 - 1.10 09/02 Specimen Type: BLOOD No comment entered. Ordering Provider: LAURIE CHINCHILLA Report Released Date/Time: Aug 28, 2024 09:07 AM Reporting Lab: [facility] [place] [facility] [address] [facility] [address] Performing Lab: [facility] [place] [facility] [address] [facility] [address] [facility] [facility] CBC AND DIFF (AUTO) MCH [ENTITIC MASS] BY AUTOMATED COUNT 32.9 pg 26.2 - 32.6 09/02 H Specimen Type: BLOOD No comment entered. Ordering Provider: LAURIE CHINCHILLA Report Released Date/Time: Aug 28, 2024 09:07 AM Reporting Lab: [facility] [place] [address] [address] Performing Lab: [facility] [place] [facility] [address] [facility] [address] [facility] [place] [facility] CBC AND DIFF (AUTO) NEUTROPHILS /100 LEUKOCYTES IN BLOOD BY AUTOMATED COUNT 72.2 43.7 - 75.8 09/02 Specimen Type: BLOOD No comment entered. Ordering Provider: LAURIE CHINCHILLA Report Released Date/Time: Aug 28, 2024 09:07 AM Reporting Lab: [facility] [place] [facility] [address] [facility] [address] Performing Lab: [facility] [place] [facility] [address] [facility] [address] [facility] [place] [facility] CBC AND DIFF (AUTO) LYMPHOCYTES /100 LEUKOCYTES IN BLOOD BY AUTOMATED COUNT 14.6 14.0 - 42.3 09/02 Specimen Type: BLOOD No comment entered. Ordering Provider: LAURIE CHINCHILLA Report Released Date/Time: Aug 28, 2024 09:07 AM Reporting Lab: [facility] [place] [facility] [address] [facility] [address] Performing Lab: [facility] [place] [facility] [address] [facility] [address] [facility] CBC AND DIFF (AUTO) MONOCYTES/1 00 LEUKOCYTES IN BLOOD BY AUTOMATED COUNT 8.9 5.1 - 13.7 09/02 Specimen Type: BLOOD No comment entered. Ordering Provider: LAURIE CHINCHILLA Report Released Date/Time: Aug 28, 2024 09:07 AM Reporting Lab: [facility] [address] [facility] [address] Performing Lab: [facility] [place] [facility] [address] [facility] [address] [facility] CBC AND DIFF (AUTO) EOSINOPHILS /100 LEUKOCYTES IN BLOOD BY AUTOMATED COUNT 3.5 0.4 - 6.8 09/02 Specimen Type: BLOOD No comment entered. Ordering Provider: LAURIE CHINCHILLA Report Released Date/Time: Aug 28, 2024 09:07 AM Reporting Lab: [facility] [address] [facility] [address] Performing Lab: [facility] [address] [facility] [address] [facility] CBC AND DIFF (AUTO) BASOPHILS/1 00 LEUKOCYTES IN BLOOD BY AUTOMATED COUNT 0.6 0.1 - 2.0 09/02 Specimen Type: BLOOD No comment entered. Ordering Provider: LAURIE CHINCHILLA Report Released Date/Time: Aug 28, 2024 09:07 AM Reporting Lab: [facility] [address] [facility] [address] Performing Lab: [facility] [address] [facility] [address] [facility] CBC AND DIFF (AUTO) NEUTROPHILS [#/VOLUME] IN BLOOD BY AUTOMATED COUNT 6.13 10*3/u L 2.20 - 7.60 09/02 Specimen Type: BLOOD No comment entered. Ordering Provider: LAURIE CHINCHILLA Report Released Date/Time: Aug 28, 2024 09:07 AM Reporting Lab: [facility] [address] [facility] [address] Performing Lab: [facility] [place] [facility] [address] [facility] [phone] [place], [place] [address] CBC AND DIFF (AUTO) LYMPHOCYTES [#/VOLUME] IN BLOOD BY AUTOMATED COUNT 1.24 10*3/u L 1.00 - 3.20 09/02 Specimen Type: BLOOD No comment entered. Ordering Provider: LAURIE CHINCHILLA Report Released Date/Time: Aug 28, 2024 09:07 AM Reporting Lab: [facility] [place] [address] [address] Performing Lab: [facility] [address] [phone] [place], [place] [address] CBC AND DIFF (AUTO) EOSINOPHILS [#/VOLUME] IN BLOOD BY AUTOMATED COUNT 0.30 10*3/u L 0.03 - 0.44 09/02 Specimen Type: BLOOD No comment entered. Ordering Provider: LAURIE CHINCHILLA Report Released Date/Time: Aug 28, 2024 09:07 AM Reporting Lab: [facility] [place] [facility] [address] [facility] [address] Performing Lab: [facility] [address] [address] [facility] [place] [facility] CBC AND DIFF (AUTO) BASOPHILS [#/VOLUME] IN BLOOD BY AUTOMATED COUNT 0.05 10*3/u L 0.01 - 0.13 09/02 Specimen Type: BLOOD No comment entered. Ordering Provider: LAURIE CHINCHILLA Report Released Date/Time: Aug 28, 2024 09:07 AM Reporting Lab: [facility] [place] [facility] [address] [facility] [address] Performing Lab: [facility] [place] [facility] [address] [facility] [address] [facility] CBC AND DIFF (AUTO) IMMATURE GRANULOCYTE S/100 LEUKOCYTES IN BLOOD BY AUTOMATED COUNT 0.2 0.0 - 0.7 09/02 Specimen Type: BLOOD No comment entered. Ordering Provider: LAURIE CHINCHILLA Report Released Date/Time: Aug 28, 2024 09:07 AM Reporting Lab: [facility] [place] [facility] [address] [facility] [address] Performing Lab: [facility] [place] [facility] [address] [facility] [address] [facility] CBC AND DIFF (AUTO) IMMATURE GRANULOCYTE S [#/VOLUME] IN BLOOD 0.02 10*3/u L 0.00 - 0.06 09/02 Specimen Type: BLOOD No comment entered. Ordering Provider: LAURIE CHINCHILLA Report Released Date/Time: Aug 28, 2024 09:07 AM Reporting Lab: [facility] [place] [facility] [address] [facility] [address] Performing Lab: [facility] [place] [facility] [address] [facility] [address] [facility] CBC AND DIFF (AUTO) NRBC % 0.0 0.0 - 0.0 09/02 Specimen Type: BLOOD No comment entered. Ordering Provider: LAURIE CHINCHILLA Report Released Date/Time: Aug 28, 2024 09:07 AM Reporting Lab: [facility] [place] [facility] [address] [facility] [address] Performing Lab: [facility] [place] [facility] [address] [facility] [address] [facility] CBC AND DIFF (AUTO) NRBC, ABS 0.00 10*3/u L 0.00 - 0.00 09/02 Specimen Type: BLOOD No comment entered. Ordering Provider: LAURIE CHINCHILLA Report Released Date/Time: Aug 28, 2024 09:07 AM Reporting Lab: [facility] [address] [facility] [address] Performing Lab: [facility] [address] [facility] [address] [facility] CALCIUM CALCIUM [MASS/VOLUM E] IN SERUM OR PLASMA 10.0 mg/dL 8.5 - 10.2 09/02 Specimen Type: SERUM No comment entered. Ordering Provider: LAURIE CHINCHILLA Report Released Date/Time: Aug 28, 2024 09:07 AM Reporting Lab: [facility] [address] [facility] [address] Performing Lab: [facility] [address] [facility] [address] [facility] Vital Signs Combined list of inpatient and outpatient Vital Signs from Department of Defense and Veterans Affairs, ranging from 12 months to all on record, depending upon the facility. Vital Sign Value Date Comments Source SYSTOLIC BLOOD PRESSURE 130 06/26/2024 09:40:00 [facility] DIASTOLIC BLOOD PRESSURE 74 06/26/2024 09:40:00 [facility] PULSE 62 06/26/2024 09:40:00 [facility] SYSTOLIC BLOOD PRESSURE 136 03/24/2024 08:37:28 [facility] DIASTOLIC BLOOD PRESSURE 61 03/24/2024 08:37:28 [facility] PULSE OXIMETRY 96 03/24/2024 08[facility]37:28 [facility] PULSE 55 03/24/2024 08[facility]37:28 [facility] RESPIRATION 19 03/24/2024 08:37:28 [facility] Encounters Combined list of: 1) Encounters from Department of Veterans Affairs facilities going back up to thelast 18 months. 2) Encounters from the Department of Defense facilities going back up to 280 months. Location Location Details Encounter Type Encounter Number Reason For Visit Attending Provider ADM Date DC Date Status Disposition Source [facility] Outpatient Encounter [id number] 05/16 [facility]counter [id number] 05/30 [facility] Out[facility]counter [id number] 06/07 [facility] Encounter [id number] 06/29 [facility] Out[facility]counter [id number] 07/13 [facility]counter [id number] 08/08 [facility] Out[facility] Encounter [id number] 08/14 [facility] Encounter [id number] 08/17 [facility] CLEAN/INSP ECT JOSE PART DENT [id number] Diagnos is: ICD-10- CM K03.6 Deposit s [accret ions] on teeth<b r/> Dewayne TAFOYA ADEZHDDarwin 08/21 [facility] DENTAL BITEWING FOUR IMAGES [id number] Diagnos is: ICD-10- CM K03.6 Deposit s [accret ions] on teeth<b r/> CRISSY MAHER 08/21 [facility] Out[facility] Encounter [id number] 08/30 [facility]counter [id number] 11/28 [facility] Out[facility] Encounter [id number] 01/31 [facility]counter [id number] 02/06 [facility] Out[facility] Encounter [id number] 02/21 [facility] CLEAN/INSP ECT JOSE PART DENT [id number] Diagnos is: ICD-10- CM K03.6 Deposit s [accret ions] on teeth<b r/> Dewayne TAFOYA ADEJohnathanHDDarwin 02/24 [facility] Out[facility]counter [id number] 03/05 [facility] OFFICE O/P EST MOD 30 MIN [id number] Diagnos is: ICD-10- CM M54.17 Radicul opathy, lumbosa cral region< br/> LAURIE MARCUM 03/24 [facility] Out[facility] Encounter [id number] 05/01 [facility] OFF/OP EST MARCH X REQ PHY/QHP [id number] Diagnos is: ICD-10- CM I10 Essenti al (primar y) hyperte nsion<b r/> PICH,FLORESITA H 06/26 [facility] Out[facility] [id number] 1.07/09 [facility] Out[facility] Encounter [id number] 1[facility]08/27 [facility] Out[facility] Encounter [id number] 1.09/01 [facility] Out[facility] Encounter [id number] 1.09/01 [facility] CLEAN/INSP ECT JOSE PART DENT [id number] Diagnos is: ICD-10- CM K03.6 Deposit s [accret ions] on teeth<b r/> BELYSHEV,N ADEZHDA 09/02 [facility] Out[facility] Encounter [id number] 09/02 [facility] Out[facility] Encounter [id number] 1.10/03 [facility] Social History Combined list of available smoking, tobacco, and other social history from Department of Defense and Veterans Affairs facilities. Social History Type Response Date Comment Sour e Tobacco smoking status NHIS VA-TOBACCO NEVER USED 03/24/2024 [facility] History of tobacco use VA-TOBACCO FORMER USER 03/29/2023 [facility] [place] [facility] History of tobacco use VA-TOBACCO FORMER USER 02/10/2022 [facility] [place] [facility] History of tobacco use NM-TOBACCO QUIT 15 YRS OR MORE 01/14/2021 [facility] [place] [facility] History of tobacco use NM-TOBACCO QUIT 15 YRS OR MORE 12/23/2018 [facility] [place] [facility] History of tobacco use NM-TOBACCO FORMER USER 12[facility]23/2018 [facility] [place] [facility] History of tobacco use LIFETIME NON-TOBACCO USER 06/22/2017 [facility] [place] [facility]
--- OUTSIDE RECORDS SUMMARY | 2024-11-13 10:09 | XMS_ITS | Patient Health Record ---
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 Role Phone Trevon Colby Primary Care Provider Allergies Allergen (clinical drug [...] 0.2 - 1.3 BLD Negative Negative - US NA complete Reviewed date:02/28/2024 09:51:45 AM Interpretation: Performing Lab: Notes/Report: [address] [address] Ultrasound Report Signed Patient: Spencer Price MR#: [id number] : 1945 Acct:[id number] Age/Sex: 78 / M ADM Date: 02/07/24 Loc: HO.US Attending Dr: Rusty Bear MD Ordering Physician: Rusty Bear MD Date of Service: 02/07/24 Procedure(s): US NA complete Accession Number(s): [id number] cc: Trevon Colby MD; Rusty Bear MD EXAMINATION: US NA complete, US arterial duplex LE BI CLINICAL INFORMATION: Peripheral vascular disease, unspecified COMPARISON: Arterial duplex lower extremity 07/17/2023. TECHNIQUE: Ankle pulse volume recordings, ankle pressure measurements and ankle brachial indices were obtained of the lower extremity arterial system bilaterally in addition to duplex Doppler techniques with wave form analysis and measurement of velocities in the common femoral, profunda femoral, superficial femoral, popliteal, tibial and peroneal arteries. The study was performed only at rest. FINDINGS: RIGHT LE. THE RIGHT ANKLE-BRACHIAL INDEX IS: 1.06, previously 0.92 2. SEGMENTAL PRESSURES (mmHg): Ankle: PT 87, DP 115 3. PVR WAVEFORMS: Ankle: Abnormal 4. DIRECT DUPLEX: Common femoral artery: 139.2 cm/s, biphasic Profunda femoris artery: 31.5 cm/s, monophasic Superficial femoral artery (proximal): 149.9 cm/s, biphasic [place] inflow artery: PSV 113.1 cm/s. Biphasic waveform. Proximal stent: PSV 112.5 cm/s. Biphasic waveform. Mid stent: PSV 102.8 cm/s. Biphasic waveform. Distal stent: PSV 87.3 cm/s. Biphasic waveform. [place] outflow artery: PSV 92.6 cm/s. Biphasic waveform. Proximal Popliteal artery: 133.3 cm/s, biphasic Distal popliteal artery: 90.6 cm/s, biphasic Mid posterior tibial artery: 67.5 cm/s, biphasic Peroneal artery: 36.8 cm/s, biphasic LEFT LE. THE LEFT ANKLE-BRACHIAL INDEX IS: 0.72, previously 0.55 2. SEGMENTAL PRESSURES: Ankle: PT 57, DP 79 3. PVR WAVEFORMS: Ankle: Abnormal 4. DIRECT DUPLEX: Common femoral artery: 58.8 cm/s, biphasic Profunda femoris artery: 47.7 cm/s, monophasic Superficial femoral artery (proximal): 67.4 cm/s, biphasic Superficial femoral artery (mid): 48.2 cm/s, monophasic Superficial femoral artery (distal): 50.2 cm/s, monophasic Collateral distal superficial femoral artery: 45.1 cm/sec, monophasic. Proximal Popliteal artery: 50 cm/s, monophasic Distal popliteal artery: 73.3 cm/s, monophasic Mid posterior tibial artery: 21.9 cm/s, monophasic Peroneal artery: 18.1 cm/s, monophasic US/US NA complete IMPRESSION: RIGHT LEG: Normal ankle brachial index. Patent right lower extremity arterial stent without evidence of hemodynamically significant stenosis. LEFT LEG: Moderate peripheral arterial disease with monophasic waveforms in the left lower extremity beginning at the level of the mid superficial femoral artery. Dictated By: Lisbet Angelo Signed By: <Electronically signed by Lisbet Angelo in OV> 02/10/24 1436 DD/ 1553 TD/TT: Range Rider: [place] [id number] Ultrasound Report Signed Patient: Spencer Price MR#: [id number] : 1945 Acct:[id number] Age/Sex: 78 / M ADM Date: 02/07/24 Loc: .US Attending Dr: Rusty Bear MD Ordering Physician: Rusty Bear MD Date of Service: 02/07/24 Procedure(s): US NA complete Accession Number(s): [id number] cc: Trevon Colby MD; Rusty Bear MD EXAMINATION: US NA complete, US arterial duplex LE BI CLINICAL INFORMATION: Peripheral vascular disease, unspecified COMPARISON: Arterial duplex lowe r extremity 07/17/2023. TECHNIQUE: Ankle pulse volume recordings, ankle pressure measurements and ankle brachial indices wer e obtained of the lower extremity arterial system bilaterally in addit ion to duplex Doppler techniques with wave form analysis and measurement of velocities in the common femoral, profunda femoral, superficial femoral, popliteal, tibial and peroneal arteries. The study was perfor med only at rest. FINDINGS: RIGHT LE. THE RIGHT ANKLE-BRACHIAL INDEX IS: 1.06, previously 0.92 2. SEGMENTAL PRESSUR ES (mmHg): Ankle: PT 87, DP 115 3. PVR WAVEFORMS: Ankle: Abnormal 4. DIRECT DUPLEX: Common femoral arter y: 139.2 cm/s, biphasic Profunda femoris artery: 31.5 cm/s, monophasic Superficial femoral artery (proximal): 149.9 cm/s, biphasic [place] inflow artery : PSV 113.1 cm/s. Biphasic waveform. Proximal stent: PSV 112.5 cm/s. Biphasic waveform. Mid stent: PSV 102.8 cm/s. Biphasic waveform. Distal stent: PSV 87 .3 cm/s. Biphasic waveform. [place] outflow arter y: PSV 92.6 cm/s. Biphasic waveform. Proximal Popliteal artery: 133.3 cm/s, biphasic Distal popliteal artery: 90.6 cm/s, biphasic Mid posterior tibial artery: 67.5 cm/s, biphasic Peroneal artery: 36. 8 cm/s, biphasic LEFT LE. THE LEFT ANKLE-BRACHIAL INDEX IS: 0.72, previously 0.55 2. SEGMENTAL PRESSURES: Ankle: PT 57, DP 79 3. PVR WAVEFORMS: Ankle: Abnormal 4. DIRECT DUPLEX: Common femoral arter y: 58.8 cm/s, biphasic Profunda femoris artery: 47.7 cm/s, monophasic Superficial femoral artery (proximal): 67.4 cm/s, biphasic Superficial femoral artery (mid): 48.2 cm/s, monophasic Superficial femoral artery (distal): 50.2 cm/s, monophasic Collateral distal superficial femoral artery: 45.1 cm/sec, monophasic. Proximal Popliteal artery: 50 cm/s, monophasic Distal popliteal artery: 73.3 cm/s, monophasic Mid posterior tibial artery: 21.9 cm/s, monophasic Peroneal artery: 18. 1 cm/s, monophasic US/US NA complete IMPRESSION: RIGHT LEG: Normal ankle brachia l index. Patent right lower extremity arterial stent without eviden ce of hemodynamically significant stenosis. LEFT LEG: Moderate peripheral arterial disease with monophasic waveforms in the left lower extremity beginning at the level of the mid superficial femoral artery. Dictated By: Lisbet Angelo Signed By: <Electronically signed by Lisbet Angelo in OV> 02/10/24 1436 DD/ 1553 TD/TT: Range Rider: US arterial duplex LE BI Reviewed date:02/28/2024 09:51:45 AM Interpretation: Performing Lab: Notes/Report: [address] [address] Ultrasound Report Signed Patient: Spencer Price MR#: [id number] : 1945 Acct:[id number] Age/Sex: 78 / M ADM Date: 02/07/24 Loc: . Attending Dr: Rusty Bear MD Ordering Physician: Rusty Bear MD Date of Service: 02/07/24 Procedure(s): US arterial duplex LE BI Accession Number(s): [id number] cc: Trevon Colby MD; Rusty Bear MD EXAMINATION: US NA complete, US arterial duplex LE BI CLINICAL INFORMATION: Peripheral vascular disease, unspecified COMPARISON: Arterial duplex lower extremity 07/17/2023. TECHNIQUE: Ankle pulse volume recordings, ankle pressure measurements and ankle brachial indices were obtained of the lower extremity arterial system bilaterally in addition to duplex Doppler techniques with wave form analysis and measurement of velocities in the common femoral, profunda femoral, superficial femoral, popliteal, tibial and peroneal arteries. The study was performed only at rest. FINDINGS: RIGHT LE. THE RIGHT ANKLE-BRACHIAL INDEX IS: 1.06, previously 0.92 2. SEGMENTAL PRESSURES (mmHg): Ankle: PT 87, DP 115 3. PVR WAVEFORMS: Ankle: Abnormal 4. DIRECT DUPLEX: Common femoral artery: 139.2 cm/s, biphasic Profunda femoris artery: 31.5 cm/s, monophasic Superficial femoral artery (proximal): 149.9 cm/s, biphasic [place] inflow artery: PSV 113.1 cm/s. Biphasic waveform. Proximal stent: PSV 112.5 cm/s. Biphasic waveform. Mid stent: PSV 102.8 cm/s. Biphasic waveform. Distal stent: PSV 87.3 cm/s. Biphasic waveform. [place] outflow artery: PSV 92.6 cm/s. Biphasic waveform. Proximal Popliteal artery: 133.3 cm/s, biphasic Distal popliteal artery: 90.6 cm/s, biphasic Mid posterior tibial artery: 67.5 cm/s, biphasic Peroneal artery: 36.8 cm/s, biphasic LEFT LE. THE LEFT ANKLE-BRACHIAL INDEX IS: 0.72, previously 0.55 2. SEGMENTAL PRESSURES: Ankle: PT 57, DP 79 3. PVR WAVEFORMS: Ankle: Abnormal 4. DIRECT DUPLEX: Common femoral artery: 58.8 cm/s, biphasic Profunda femoris artery: 47.7 cm/s, monophasic Superficial femoral artery (proximal): 67.4 cm/s, biphasic Superficial femoral artery (mid): 48.2 cm/s, monophasic Superficial femoral artery (distal): 50.2 cm/s, monophasic Collateral distal superficial femoral artery: 45.1 cm/sec, monophasic. Proximal Popliteal artery: 50 cm/s, monophasic Distal popliteal artery: 73.3 cm/s, monophasic Mid posterior tibial artery: 21.9 cm/s, monophasic Peroneal artery: 18.1 cm/s, monophasic US/US arterial duplex LE BI IMPRESSION: RIGHT LEG: Normal ankle brachial index. Patent right lower extremity arterial stent without evidence of hemodynamically significant stenosis. LEFT LEG: Moderate peripheral arterial disease with monophasic waveforms in the left lower extremity beginning at the level of the mid superficial femoral artery. Dictated By: Lisbet Angelo Signed By: <Electronically signed by Lisbet Angelo in OV> 02/10/24 1436 DD/ 1553 TD/TT: Range Rider: [place] [id number] Ultrasound Report Signed Patient: Spencer Price MR#: [id number] : 1945 Acct:[id number] Age/Sex: 78 / M ADM Date: 02/07/24 Loc: . Attending Dr: Rusty Bear MD Ordering Physician: Rusty Bear MD Date of Service: 02/07/24 Procedure(s): US arterial duplex LE BI Accession Number(s): [id number] cc: Trevon Colby MD; Rusty Bear MD EXAMINATION: US NA complete, US arterial duplex LE BI CLINICAL INFORMATION: Peripheral vascular disease, unspecified COMPARISON: Arterial duplex lowe r extremity 07/17/2023. TECHNIQUE: Ankle pulse volume recordings, ankle pressure measurements and ankle brachial indices wer e obtained of the lower extremity arterial system bilaterally in addit ion to duplex Doppler techniques with wave form analysis and measurement of velocities in the common femoral, profunda femoral, superficial femoral, popliteal, tibial and peroneal arteries. The study was perfor med only at rest. FINDINGS: RIGHT LE. THE RIGHT ANKLE-BRACHIAL INDEX IS: 1.06, previously 0.92 2. SEGMENTAL PRESSUR ES (mmHg): Ankle: PT 87, DP 115 3. PVR WAVEFORMS: Ankle: Abnormal 4. DIRECT DUPLEX: Common femoral arter y: 139.2 cm/s, biphasic Profunda femoris artery: 31.5 cm/s, monophasic Superficial femoral artery (proximal): 149.9 cm/s, biphasic [place] inflow artery : PSV 113.1 cm/s. Biphasic waveform. Proximal stent: PSV 112.5 cm/s. Biphasic waveform. Mid stent: PSV 102.8 cm/s. Biphasic waveform. Distal stent: PSV 87 .3 cm/s. Biphasic waveform. [place] outflow arter y: PSV 92.6 cm/s. Biphasic waveform. Proximal Popliteal artery: 133.3 cm/s, biphasic Distal popliteal artery: 90.6 cm/s, biphasic Mid posterior tibial artery: 67.5 cm/s, biphasic Peroneal artery: 36. 8 cm/s, biphasic LEFT LE. THE LEFT ANKLE-BRACHIAL INDEX IS: 0.72, previously 0.55 2. SEGMENTAL PRESSURES: Ankle: PT 57, DP 79 3. PVR WAVEFORMS: Ankle: Abnormal 4. DIRECT DUPLEX: Common femoral arter y: 58.8 cm/s, biphasic Profunda femoris artery: 47.7 cm/s, monophasic Superficial femoral artery (proximal): 67.4 cm/s, biphasic Superficial femoral artery (mid): 48.2 cm/s, monophasic Superficial femoral artery (distal): 50.2 cm/s, monophasic Collateral distal superficial femoral artery: 45.1 cm/sec, monophasic. Proximal Popliteal artery: 50 cm/s, monophasic Distal popliteal artery: 73.3 cm/s, monophasic Mid posterior tibial artery: 21.9 cm/s, monophasic Peroneal artery: 18. 1 cm/s, monophasic US/US arterial duplex LE BI IMPRESSION: RIGHT LEG: Normal ankle brachia l index. Patent right lower extremity arterial stent without eviden ce of hemodynamically significant stenosis. LEFT LEG: Moderate peripheral arterial disease with monophasic waveforms in the left lower extremity beginning at the level of the mid superficial femoral artery. Dictated By: Lisbet Angelo Signed By: <Electronically signed by Lisbet Angelo in OV> 02/10/24 1436 DD/ 1553 TD/TT: Range Rider: Complete Blood Count Auto Di ff Reviewed date:02/28/2024 09:51:45 AM Interpretation: Performing Lab:[facility], [address] [place] [phone] Notes/Report: White Blood Count 4.4 4.8-10.8 X10*3/uL Red Blood Count 3.90 4.60-5.80 X10*6/uL Hemoglobin 12.9 14.0-18.0 g/dl Hematocrit 38.6 42.0-52.0 % Mean Corpuscular Volume 99.0 80.0-98.0 fL Mean Corpuscular Hemoglobin 33.1 27.0-33.0 pg Mean Corpuscular HGB Conc 33.4 31.0-36.0 g/dl Red Cell Distribution Width 13.2 11.0-16.0 % Platelet Count 279 160-400 X10*3/uL Mean Platelet Volume 9.4 9.4-12.4 fL Neutrophils Percent Auto 47.0 45-73 % Imm Gran Pct Auto 0.5 0.0-0.4 % Lymphocytes Percent Auto 30.6 20-40 % Monocytes Percent Auto 12.2 2-11 % Eosinophils Percent Auto 8.1 0-4 % Basophils Percent Auto 1.6 0-2 % NRBC Pct Auto 0.0 0.0-0.2 /100WBC Neutrophils Absolute Auto 2.1 2.0-8.3 x10*3/u L Imm Gran Abs Auto 0.02 0.00-0.03 X10*3/uL Lymphocytes Absolute Auto 1.4 1.2-4.9 X10*3/u L Monocytes Absolute Auto 0.5 0.1-1.2 X10*3/uL Eosinophils Absolute Auto 0.4 0.0-0.4 X10*3/u L Basophils Absolute Auto 0.1 0.0-0.2 X10*3/uL NRBC Abs Auto 0.000 0.0-0.012 X10*3/uL Comprehensive [place]. Panel Fa st Reviewed date:02/28/2024 09:51:45 AM Interpretation: Performing Lab:[facility], [address] [place] [phone] Notes/Report: Sodium 138 135-145 mmol/L Potassium 4.5 3.3-5.1 mmol/L Chloride 105 96-108 mmol/L Carbon Dioxide 26 22-29 mmol/L Anion Gap 12 12-20 Blood Urea Nitrogen 43 9-16 mg/dL Creatinine 1.56 0.5-1.4 mg/dL Estimated Glomerular Filt Rate 43 NOTE: For -Stateless individuals, multiply the result by 1.210. Chronic Kidney Disease: Estimated GFR < 60 mL/min/1.73m2 Severe Kidney Disease: Estimated GFR < 15 mL/min/1.73m2 Glucose Fasting 106 60-99 mg/dL A fasting glucose from 100-125 mg/dl is considered impaired (pre-diabetes). Calcium 9.6 8.4-10.2 mg/dL Bilirubin Total 0.8 0.0-1.0 mg/dL Aspartate Amino Transferase 20 5-37 U/L Alanine Aminotransferase 17 0-40 U/L Total Protein 6.9 6.5-8.0 g/dL Albumin Level 3.9 3.5-5.0 g/dL Alkaline Phosphatase 85 39-117 U/L Lipid Panel Reviewed date:02/28/2024 09:51:45 AM Interpretation: Performing Lab:[facility], [address] [place] [phone] Notes/Report: Triglycerides 69 <150 mg/dL Desirable Triglyceride: less than 150 mg/dL Borderline High Triglyceride 150-199 mg/dL High Triglyceride: 200-499 mg/dL Very High Triglyceride: greater than or equal to 5OO mg/dL Cholesterol 124 <200 mg/dL Desirable Cholesterol: less than 200 mg/dL Borderline High Cholesterol: 200-239 mg/dL High Cholesterol: greater than 239 mg/dL LDL Cholesterol Calculated 59 <100 mg/dL Desirable LDL: less than 100 mg/dL Near Optimal/Above Optimal LDL: 110-129 mg/dL Borderline High LDL: 130-159 mg/dL High LDL: 160-189 mg/dL Very High LDL: greater than or equal to 190 mg/dL HDL Cholesterol 52 >40 mg/dL Desirable HDL: greater than 40 mg/dL Note: This HDL assay may give artificially low results in patients with liver disease. Complete Blood Count Auto Di ff Reviewed date:04/22/2024 05:00:36 PM Interpretation: Performing Lab:[facility], [address] [place] [phone] Notes/Report: White Blood Count 5.2 4.8-10.8 X10*3/uL Red Blood Count 3.91 4.60-5.80 X10*6/uL Hemoglobin 13.0 14.0-18.0 g/dl Hematocrit 39.0 42.0-52.0 % Mean Corpuscular Volume 99.7 80.0-98.0 fL Mean Corpuscular Hemoglobin 33.2 27.0-33.0 pg Mean Corpuscular HGB Conc 33.3 31.0-36.0 g/dl Red Cell Distribution Width 12.8 11.0-16.0 % Platelet Count 297 160-400 X10*3/uL Mean Platelet Volume 9.8 9.4-12.4 fL Neutrophils Percent Auto 49.7 45-73 % Imm Gran Pct Auto 0.2 0.0-0.4 % Lymphocytes Percent Auto 31.2 20-40 % Monocytes Percent Auto 10.9 2-11 % Eosinophils Percent Auto 6.9 0-4 % Basophils Percent Auto 1.1 0-2 % NRBC Pct Auto 0.0 0.0-0.2 /100WBC Neutrophils Absolute Auto 2.6 2.0-8.3 x10*3/u L Imm Gran Abs Auto 0.01 0.00-0.03 X10*3/uL Lymphocytes Absolute Auto 1.6 1.2-4.9 X10*3/u L Monocytes Absolute Auto 0.6 0.1-1.2 X10*3/uL Eosinophils Absolute Auto 0.4 0.0-0.4 X10*3/u L Basophils Absolute Auto 0.1 0.0-0.2 X10*3/uL NRBC Abs Auto 0.000 0.0-0.012 X10*3/uL Comprehensive [place]. Panel Fa st Reviewed date:04/22/2024 05:00:36 PM Interpretation: Performing Lab:[facility], [address] [place] [phone] Notes/Report: Sodium 137 135-145 mmol/L Potassium 4.3 3.3-5.1 mmol/L Chloride 104 96-108 mmol/L Carbon Dioxide 29 22-29 mmol/L Anion Gap 8 12-20 Blood Urea Nitrogen 35 9-16 mg/dL Creatinine 1.45 0.5-1.4 mg/dL Estimated Glomerular Filt Rate 47 NOTE: For -Stateless individuals, multiply the result by 1.210. Chronic Kidney Disease: Estimated GFR < 60 mL/min/1.73m2 Severe Kidney Disease: Estimated GFR < 15 mL/min/1.73m2 Glucose Fasting 92 60-99 mg/dL Calcium 10.0 8.4-10.2 mg/dL Bilirubin Total 0.4 0.0-1.0 mg/dL Aspartate Amino Transferase 21 5-37 U/L Alanine Aminotransferase 18 0-40 U/L Total Protein 7.0 6.5-8.0 g/dL Albumin Level 3.9 3.5-5.0 g/dL Alkaline Phosphatase 96 39-117 U/L Lipid Panel Reviewed date:04/22/2024 05:00:36 PM Interpretation: Performing Lab:[facility], [address] [place] [phone] Notes/Report: Triglycerides 61 <150 mg/dL Desirable Triglyceride: less than 150 mg/dL Borderline High Triglyceride 150-199 mg/dL High Triglyceride: 200-499 mg/dL Very High Triglyceride: greater than or equal to 5OO mg/dL Cholesterol 123 <200 mg/dL Desirable Cholesterol: less than 200 mg/dL Borderline High Cholesterol: 200-239 mg/dL High Cholesterol: greater than 239 mg/dL LDL Cholesterol Calculated 60 <100 mg/dL Desirable LDL: less than 100 mg/dL Near Optimal/Above Optimal LDL: 110-129 mg/dL Borderline High LDL: 130-159 mg/dL High LDL: 160-189 mg/dL Very High LDL: greater than or equal to 190 mg/dL HDL Cholesterol 51 >40 mg/dL Desirable HDL: greater than 40 mg/dL Note: This HDL assay may give artificially low results in patients with liver disease. Prostate Specific Antigen Reviewed date:04/22/2024 05:00:36 PM Interpretation: Performing Lab:[facility], [address] [place] [phone] Notes/Report: Prostate Specific Antigen 3.57 <0.05-4.0 ng/mL PSA methodology: Chavez Alinity i Chemiluminescent Microparticle Immunoassay (CMIA) XR lumbar spine 4V min Reviewed date:07/27/2024 05:58:52 AM Interpretation: Performing Lab: Notes/Report: [facility] [address] [place] [address] XRay Report Signed Patient: Spencer Price MR#: [id number] : 1945 Acct:[id number] Age/Sex: 78 / M ADM Date: 05/12/24 Loc: MELVIN Attending Dr: Vikram RUVALCABA Ordering Physician: Vikram Grant Date of Service: 05/12/24 Procedure(s): XR lumbar spine 4V min Accession Number(s): [id number] cc: Trevon Colby MD; Vikram Grant EXAMINATION: XR LUMBOSACRAL SPINE WITH OBLIQUES CLINICAL INFORMATION: Low back pain. COMPARISON: 08/08/2023 x-rays, 06/07/2023 MRI lumbar spine. TECHNIQUE: 4 views of the lumbar spine. FINDINGS: Dextroscoliosis of the lumbar spine. Diffuse demineralization. Right total hip prosthesis partially imaged. Atherosclerotic aortoiliac calcifications. Advanced multilevel lumbar spondylosis with marked loss of disc space height most notable at L2-L3 and L3-L4. Advanced facet arthritis in the thoracolumbar spine. Grade 1 anterolisthesis persisting on flexion and extension views of L4 with respect to what will be referred to as L5 for the purposes of this report and as referred to on prior imaging studies. XR/XR lumbar spine 4V min IMPRESSION: Advanced multilevel lumbar spondylosis. Dictated By: Mari Higuera MD Signed By: <Electronically signed by Mari Higuera MD in OV> 06/04/24 0711 DD/ 1534 TD/TT: Range Rider: [facility] [address] [place] [address] XRay Report Signed Patient: Spencer Price MR#: [id number] : 1945 Acct:[id number] Age/Sex: 78 / M ADM Date: 05/12/24 Loc: MELVIN Attending Dr: Vikram RUVALCABA Ordering Physician: Vikram Grant Date of Service: 05/12/24 Procedure(s): XR lum bar spine 4V min Accession Number(s): [id number] cc: Trevon Colby MD; Vikram Grant EXAMINATION: XR LUMBOSACRAL SPINE WITH OBLIQUES CLINICAL INFORMATION: Low back pain. COMPARISON: 08/08/2023 x-rays, 06/07/2023 MRI lumbar spine. TECHNIQUE: 4 views of the lumba r spine. FINDINGS: Dextroscoliosis of t he lumbar spine. Diffuse demineralization. Right total hip prosthesis partially imaged. Atherosclerotic aortoiliac calcifications. Advanced multilevel lumbar spondylosis with marked loss of disc space height most notable at L2-L3 and L3-L4. Advanced facet arthritis in the thoracolumbar spine. Grade 1 anterolisthesis persisting on flexion and extension views of L 4 with respect to what will be referred to as L5 for the purposes of this report and as referred to on prior imaging studies. XR/XR lumbar spine 4V min IMPRESSION: Advanced multilevel lumbar spondylosis. Dictated By: Mari Higuera MD Signed By: <Electronically signed by Mari Higuera MD in OV> 06/04/24 0711 DD/ 1534 TD/TT: Range Rider: MR lumbar spine wo con Reviewed date:07/27/2024 05:58:52 AM Interpretation: Performing Lab: Notes/Report: [address] [address] Magnetic Resonance Report Signed Patient: Spencer Price MR#: [id number] : 1945 Acct:[id number] Age/Sex: 78 / M ADM Date: 05/27/24 Loc: HO.MRI Attending Dr: Vikram RUVALCABA Ordering Physician: Vikram Grant Date of Service: 05/27/24 Procedure(s): MR lumbar spine wo con Accession Number(s): [id number] cc: Trevon Colby MD; Vikram Grant EXAMINATION: MR LUMBAR SPINE WITHOUT CONTRAST CLINICAL INFORMATION: Low back pain, lumbar radiculopathy COMPARISON: MRI lumbar spine on 06/07/2023 TECHNIQUE: MRI of the lumbar spine was obtained using routine sequences without contrast. FINDINGS: T9-T10 and T10-T11 moderate degenerative thoracic disc disease, mild posterior disc protrusions are seen. The visualized lumbar vertebrae are intact with moderate L2-L3 dextroscoliosis and moderate L4-L5 levoscoliosis. No focal bone lesion with abnormal signal can be seen. Evaluation of the intervertebral discs show: T12/L1: Intervertebral disc height is normal, with normal T2 signal. No focal disc herniation is seen. Bilateral T12/L1 neuroforamina are patent. Bilateral apophyseal joints are intact with normal alignment. L-1/L-2: Intervertebral disc height is mildly decreased, with mild loss of T2 signal. Mild posterior disc protrusion is seen. Unchanged mild right and moderate left L1-L2 neuroforamina stenosis is seen. Bilateral apophyseal joints are intact with normal alignment. Bilateral apophyseal joints show loss of joint space, sclerosis, facet hypertrophy and osteophytosis. L2/L3: Intervertebral disc height is markedly decreased, with marked loss of T2 signal in the left half. Moderate posterior and left foraminal disc protrusion is seen. Unchanged severe left and mild right L2-L3 neuroforamina stenosis is seen. Bilateral apophyseal joints are intact with normal alignment. Bilateral apophyseal joints show loss of joint space, sclerosis, facet hypertrophy and osteophytosis. L3/L4: Intervertebral disc height is markedly decreased, with mild loss of T2 signal. Mild posterior and asymmetric left foraminal osteophyte disc complex protrusion is seen. Unchanged severe left and mild right L3-L4 neuroforamina stenosis is seen. Bilateral apophyseal joints are intact with normal alignment. Bilateral apophyseal joints show loss of joint space, sclerosis, facet hypertrophy and osteophytosis. L4/L5: There is anterior L4 on L5 displacement by 0.4 cm, with associated exposure of intervertebral disc. Intervertebral disc height is moderately decreased, with moderate loss of T2 signal. Moderate bilateral foraminal disc protrusion is seen. Unchanged severe right and marked left L4-L5 neuroforamina stenosis is present. There is persistent moderate spinal stenosis with additional impingement by hypertrophic ligamentum flavum. Bilateral apophyseal joints are intact with normal alignment. Bilateral apophyseal joints show joint effusion, sclerosis, facet hypertrophy and osteophytosis. L5/S1: There is marked anterior L5 on S1 displacement by 0.7 cm, with exposure of intervertebral disc. Intervertebral disc height is markedly decreased, with marked loss of T2 signal. Marked posterior and asymmetric left foraminal disc protrusion is seen. Bilateral L5-S1 neuroforamina are moderately stenosed. There is marked spinal stenosis due to additional impingement by hypertrophic ligamentum flavum. Bilateral apophyseal joints are intact with normal alignment. Bilateral apophyseal joints show joint effusion, sclerosis, facet hypertrophy and osteophytosis. Conus medullaris is seen normally at L1 level. A large T2 hyperintense simple cyst measuring 5.1 cm in diameter and adjacent medial 1.7 cm simple cyst are seen in superior right renal pole, for which no follow up imaging is recommended. MR/MR lumbar spine wo con IMPRESSION: 1. Unchanged Moderate L2-L3 dextroscoliosis and moderate L4-L5 levoscoliosis. 2. Unchanged Marked L5-S1 and moderate L4-L5 spinal stenosis due to combination of anterolisthesis, intervertebral disc exposure and protrusion, facet arthropathy and hypertrophic ligamentum flavum. 3. Unchanged multilevel advanced lumbar spondylosis and posterior disc protrusions from L1-L2 to L5-S1. 4. Unchanged mild right and moderate left L1-L2, severe left and mild right L2-L3, severe left and mild right L3-L4, severe right and marked left L4-L5 and moderate bilateral L5-S1 neuroforamina stenosis. 5. Dictated By: Santiago Oliveira Signed By: <Electronically signed by Santiago Oliveira in OV> 06/05/24 1505 DD/ 1510 TD/TT: Range Rider: [place] [id number] Magnetic Resonance Report Signed Patient: Spencer Price MR#: [id number] : 1945 Acct:[id number] Age/Sex: 78 / M ADM Date: 05/27/24 Loc: HO.MRI Attending Dr: Vikram RUVALCABA Ordering Physician: Vikram Grant Date of Service: 05/27/24 Procedure(s): MR lum bar spine wo con Accession Number(s): [id number] cc: Trevon Colby MD; Vikram Grant EXAMINATION: MR LUMBAR SPINE WITH OUT CONTRAST CLINICAL INFORMATION: Low back pain, lumba r radiculopathy COMPARISON: MRI lumbar spine on 06/07/2023 TECHNIQUE: MRI of the lumbar sp ine was obtained using routine sequences without contrast. FINDINGS: T9-T10 and T10-T11 moderate degenerative thoracic disc disease, mild market gardener ior disc protrusions are seen. The visualized lumba r vertebrae are intact with moderate L2-L3 dextroscoliosis and moderate L4-L5 levoscoliosis. No focal bone lesion with abnormal signal can be seen. Evaluation of the intervertebral discs show: T12/L1: Intervertebr al disc height is normal, with normal T2 signal. No focal disc herniation is seen. Bilateral T12/L1 neuroforamina are patent. Bilateral apophyseal joints are intact with normal alignment. L-1/L-2: Interverteb ral disc height is mildly decreased, with mild loss of T2 signal. Mild posterior disc protrusion is seen. Unchanged mild right and moderate l eft L1-L2 neuroforamina stenosis is seen. Bilateral apophyseal joints are intact with normal alignment. Bilateral apophyseal joints sh ow loss of joint space, sclerosis, facet hypertrophy and osteophytosis. L2/L3: Intervertebra l disc height is markedly decreased, with marked loss of T2 signal in the left half. Moderate posterior and left foraminal disc protrusion is seen. Unchanged severe left and mild right L2-L3 neuroforamina stenosis is seen. Bilateral apophyseal joints are intact with normal alignment. Bilateral apophyseal joints sh ow loss of joint space, sclerosis, facet hypertrophy and osteophytosis. L3/L4: Intervertebra l disc height is markedly decreased, with mild loss of T2 signal. Mild posterior and asymmetric left foraminal osteophyte disc complex protrus ion is seen. Unchanged severe left and mild right L3-L4 neuroforamina stenosis is seen. Bilateral apophyseal joints are intact with normal alignment. Bilateral apophyseal joints sh ow loss of joint space, sclerosis, facet hypertrophy and osteophytosis. L4/L5: There is anterior L4 on L5 displacement by 0.4 cm, with associated exposure of intervertebral disc. Intervertebral disc height is moderately decreased, with moderate loss of T2 signal. Modera te bilateral foraminal disc protrusion is seen. Unchanged severe rig ht and marked left L4-L5 neuroforamina stenosis is present. There is persistent moderate spinal stenosis with additional impingement by hypertrophic ligamentum flavum. Bilateral apophyseal joints are intact with normal alignment. Bilateral apophyseal joints sh ow joint effusion, sclerosis, facet hypertrophy and osteophytosis. L5/S1: There is grace ed anterior L5 on S1 displacement by 0.7 cm, with exposure of intervertebral disc. Intervertebral disc height is markedly decreased, with marked loss of T2 signal. Marked posterior and asymmetric left foraminal disc protrusion is seen. Bilateral L5-S1 neuroforamina are moderately stenosed. There is marked spinal stenosis due to additional impingement by hypertrophic ligamentum flavum. Bilateral apophyseal joints are intact with normal alignment. Bilateral apophyseal joints sh ow joint effusion, sclerosis, facet hypertrophy and osteophytosis. Conus medullaris is seen normally at L1 level. A large T2 hyperinte nse simple cyst measuring 5.1 cm in diameter and adjacent medial 1.7 cm simple cyst are seen in superior right renal pole, for which no follow up imaging is recommended. MR/MR lumbar spine wo con IMPRESSION: 1. Unchanged Moderat e L2-L3 dextroscoliosis and moderate L4-L5 levoscoliosis. 2. Unchanged Marked L5-S1 and moderate L4-L5 spinal stenosis due to combination of anterolisthesis, intervertebral disc exposure and protrusion, facet arthropathy and hypertrophic ligamentum flavum. 3. Unchanged multile kely advanced lumbar spondylosis and posterior disc protrusions from L1- L2 to L5-S1. 4. Unchanged mild ri ght and moderate left L1-L2, severe left and mild right L2-L3, severe left and mild right L3-L4, severe right and marked left L4-L5 and moder ate bilateral L5-S1 neuroforamina stenosis. 5. Dictated By: Santiago Oliveira Signed By: <Electronically signed by Santiago Oliveira in OV> 06/05/24 1505 DD/ 1510 TD/TT: Range Rider: Complete Blood Count Auto Di ff Reviewed date:07/27/2024 05:58:52 AM Interpretation: Performing Lab:[facility], [address] [place] [phone] Notes/Report: White Blood Count 5.0 4.8-10.8 X10*3/uL Red Blood Count 3.68 4.60-5.80 X10*6/uL Hemoglobin 12.5 14.0-18.0 g/dl Hematocrit 37.0 42.0-52.0 % Mean Corpuscular Volume 100.5 80.0-98.0 fL Mean Corpuscular Hemoglobin 34.0 27.0-33.0 pg Mean Corpuscular HGB Conc 33.8 31.0-36.0 g/dl Red Cell Distribution Width 13.3 11.0-16.0 % Platelet Count 266 160-400 X10*3/uL Mean Platelet Volume 9.7 9.4-12.4 fL Neutrophils Percent Auto 48.1 45-73 % Imm Gran Pct Auto 0.4 0.0-0.4 % Lymphocytes Percent Auto 28.7 20-40 % Monocytes Percent Auto 12.5 2-11 % Eosinophils Percent Auto 9.1 0-4 % Basophils Percent Auto 1.2 0-2 % NRBC Pct Auto 0.0 0.0-0.2 /100WBC Neutrophils Absolute Auto 2.4 2.0-8.3 x10*3/u L Imm Gran Abs Auto 0.02 0.00-0.03 X10*3/uL Lymphocytes Absolute Auto 1.4 1.2-4.9 X10*3/u L Monocytes Absolute Auto 0.6 0.1-1.2 X10*3/uL Eosinophils Absolute Auto 0.5 0.0-0.4 X10*3/u L Basophils Absolute Auto 0.1 0.0-0.2 X10*3/uL NRBC Abs Auto 0.000 0.0-0.012 X10*3/uL Comprehensive [place]. Panel Fa st Reviewed date:07/27/2024 05:58:52 AM Interpretation: Performing Lab:[facility], [address] [place] [phone] Notes/Report: Sodium 137 135-145 mmol/L Potassium 4.8 3.3-5.1 mmol/L Chloride 106 96-108 mmol/L Carbon Dioxide 26 22-29 mmol/L Anion Gap 10 12-20 Blood Urea Nitrogen 32 9-16 mg/dL Creatinine 1.48 0.5-1.4 mg/dL Estimated Glomerular Filt Rate 46 NOTE: For -Stateless individuals, multiply the result by 1.210. Chronic Kidney Disease: Estimated GFR < 60 mL/min/1.73m2 Severe Kidney Disease: Estimated GFR < 15 mL/min/1.73m2 Glucose Fasting 94 60-99 mg/dL Calcium 9.8 8.4-10.2 mg/dL Bilirubin Total 0.7 0.0-1.0 mg/dL Aspartate Amino Transferase 22 5-37 U/L Alanine Aminotransferase 13 0-40 U/L Total Protein 6.8 6.5-8.0 g/dL Albumin Level 3.8 3.5-5.0 g/dL Alkaline Phosphatase 92 39-117 U/L Lipid Panel Reviewed date:07/27/2024 05:58:52 AM Interpretation: Performing Lab:[facility], [address] [place] [phone] Notes/Report: Triglycerides 60 <150 mg/dL Desirable Triglyceride: less than 150 mg/dL Borderline High Triglyceride 150-199 mg/dL High Triglyceride: 200-499 mg/dL Very High Triglyceride: greater than or equal to 5OO mg/dL Cholesterol 120 <200 mg/dL Desirable Cholesterol: less than 200 mg/dL Borderline High Cholesterol: 200-239 mg/dL High Cholesterol: greater than 239 mg/dL LDL Cholesterol Calculated 58 <100 mg/dL Desirable LDL: less than 100 mg/dL Near Optimal/Above Optimal LDL: 110-129 mg/dL Borderline High LDL: 130-159 mg/dL High LDL: 160-189 mg/dL Very High LDL: greater than or equal to 190 mg/dL HDL Cholesterol 50 >40 mg/dL Desirable HDL: greater than 40 mg/dL Note: This HDL assay may give artificially low results in patients with liver disease. Prostate Specific Antigen Reviewed date:07/27/2024 05:58:52 AM Interpretation: Performing Lab:[facility], [address] [place] [phone] Notes/Report: Prostate Specific Antigen 2.80 <0.05-4.0 ng/mL PSA methodology: Chavez Alinity i Chemiluminescent Microparticle Immunoassay (CMIA) Type and Screen Reviewed date:09/07/2024 06:31:42 AM Interpretation: Performing Lab:[facility], [address] [place] [phone] Notes/Report: WITNESSED BY THEW NURSING: Call Blood Bank (ext. [phone]) to band patient on admission. Type and Screen in effect until 2300 on 09-17-2024 Spec expiration changed by SHOBHA on 09/03/24 Reason: PAT SPEC 09/17/24 Blood Type OP Antibody Screen NEGATIVE Glucose, Whole Blood Reviewed date:09/18/2024 09:17:25 AM Interpretation: Performing Lab:[facility], [address] [place] [phone] Notes/Report: Glucose, Whole Blood 178 60-115 mg/dL METER # : [id number] FL guidance in OR Reviewed date:09/23/2024 08:42:28 AM Interpretation: Performing Lab: Notes/Report: [address] [address] Fluoroscopy Report Signed Patient: Spencer Price MR#: [id number] : 1945 Acct:[id number] Age/Sex: 79 / M ADM Date: 09/17/24 Loc: S3 344-[address]: Vikram RUVALCABA Ordering Physician: George Batlazar MD, PhD Date of Service: 09/17/24 Procedure(s): FL guidance in OR Accession Number(s): [id number] cc: Trevon Colby MD; George Baltazar MD, PhD EXAMINATION: FLUOROSCOPY GUIDANCE FOR NEEDLE PLACEMENT CLINICAL INFORMATION: Fluoroscopy in the operating room COMPARISON: None available. TECHNIQUE: Fluoroscopy during posterior lumbar fusion FINDINGS: L2-L5 posterior fusion with intervertebral disc spacers. FLUOROSCOPY TIME: 4.04 minutes DOSE AREA PRODUCT: 32.77 Gy-cm2 (allen-centimeter squared) FL/FL guidance in OR IMPRESSION: Fluoroscopy in the operating room. Please see operative report for additional information. Electronically signed by: Gillian Onofre MD 09/18/2024 12:40 PM [facility] Dictated By: Gillian Onofre MD Signed By: <Electronically signed by Gillian Onofre MD in OV> 09/18/24 1240 DD/ 0740 TD/TT: 09/17/24 1025 Range Rider: KAIDEN [address] [address] Fluoroscopy Report Signed Patient: Spencer Price MR#: [id number] : 1945 Acct:[id number] Age/Sex: 79 / M ADM Date: 09/17/24 Loc: .S3 344-[address]: Vikram RUVALCABA Ordering Physician: George Baltazar MD, PhD Date of Service: 09/17/24 Procedure(s): FL guidance in OR Accession Number(s): [id number] cc: Trevon Colby MD; George Baltazar MD, PhD EXAMINATION: FLUOROSCOPY GUIDANCE FOR NEEDLE PLACEMENT CLINICAL INFORMATION: Fluoroscopy in the operating room COMPARISON: None available. TECHNIQUE: Fluoroscopy during posterior lumbar fusion FINDINGS: L2-L5 posterior fusi on with intervertebral disc spacers. FLUOROSCOPY TIME: 4.04 minutes DOSE AREA PRODUCT: 32.77 Gy-cm2 (allen-centimeter squared) FL/FL guidance in OR IMPRESSION: Fluoroscopy in the operating room. Please see operative report for additional information. Electronically kendal d by: Gillian Onofre MD 09/18/2024 12:40 PM [facility] Dictated By: Gillian Onofre MD Signed By: <Electronically signed by Gillian Onofre MD in OV> 09/18/24 1240 DD/ 0740 TD/TT: 09/17/24 1025 Range Rider: KAIDEN Complete Blood Count Auto Di ff Reviewed date:09/23/2024 08:42:28 AM Interpretation: Performing Lab:[facility], [address] [place] [phone] Notes/Report: White Blood Count 11.7 4.8-10.8 X10*3/uL Red Blood Count 2.89 4.60-5.80 X10*6/uL Hemoglobin 9.9 14.0-18.0 g/dl Hematocrit 29.0 42.0-52.0 % Mean Corpuscular Volume 100.3 80.0-98.0 fL Mean Corpuscular Hemoglobin 34.3 27.0-33.0 pg Mean Corpuscular HGB Conc 34.1 31.0-36.0 g/dl Red Cell Distribution Width 12.7 11.0-16.0 % Platelet Count 196 160-400 X10*3/uL Mean Platelet Volume 9.4 9.4-12.4 fL Neutrophils Percent Auto 79.4 45-73 % Imm Gran Pct Auto 0.6 0.0-0.4 % Lymphocytes Percent Auto 8.3 20-40 % Monocytes Percent Auto 11.4 2-11 % Eosinophils Percent Auto 0.1 0-4 % Basophils Percent Auto 0.2 0-2 % NRBC Pct Auto 0.0 0.0-0.2 /100WBC Neutrophils Absolute Auto 9.3 2.0-8.3 x10*3/u L Imm Gran Abs Auto 0.07 0.00-0.03 X10*3/uL Lymphocytes Absolute Auto 1.0 1.2-4.9 X10*3/u L Monocytes Absolute Auto 1.3 0.1-1.2 X10*3/uL Eosinophils Absolute Auto 0.0 0.0-0.4 X10*3/u L Basophils Absolute Auto 0.0 0.0-0.2 X10*3/uL NRBC Abs Auto 0.000 0.0-0.012 X10*3/uL Reason For Referral No Information Medications Medication SIG (Take, Route, Frequency, Duration) Notes Start Date End Date Status Ezetimibe 10 MG 1 tablet Orally Once a day Active Clopidogrel Bisulfate 75 MG 1 tablet Ora lly Once a day 03/30/2021 Active Lisinopril-hydroCHLOROthiaz racheal 12.5-10 MG 1 tablet Orally Once a day Active Metoprolol Succinate ER SUC 50MG TAKE 1 TABLET ONCE DAILY Orally Once a day Active Aspirin Adult Low Dose 81 MG 1 tablet Orally Once a day Active Naproxen 500 MG 1 tablet with food o r milk as needed Orally every 12 hrs Active Immunizations Vaccine Route Administration Date Status Comme nts Influenza IM Intramuscular 08/30/2015 Administered Influenza IM Intramuscular 08/16/2016 Administered Influenza no Preserv 3 and > IM Intramuscular 08/23/2017 Administered Influenza no Preserv 3 and > Unknown 08/13/2019 Administered Influenza, quad Unknown 09/20/2021 Administered Tdap Unknown 01/16/2020 Administered Pneumococcal Unknown 04/30/2020 Administered PCV13 Unknown 06/22/2017 Administered COVID- 19 Vaccine Unknown 12/24/2020 Administered Zostavax Unknown 06/22/2017 Administered PPV 23 Unknown 04/30/2020 Administered COVID Pfizer Bivalent Unknown 08/04/2022 Administered COVID 19 Moderna Unknown 09/09/2021 Administered COVID 19 Moderna Unknown 11/26/2020 Administered COVID-19 Moderna SPIKEVAX Unknown 08/23/2023 Administer ed Social History Tobacco Use: Social History Observation [...] ast year? No Points 0 Interpretation Negative Problems Problem Type SNOMED Code ICD Code Onset Dates Problem Status W/U Status Risk Notes Problem 9589093 Former smoker (Z87.891) Active confirmed He is highly motivated not to smoke and we discussed means of preserving abstinence in times of stress. Problem 89708851 Hyperlipidemia (E78.5) Active confirmed His total cholesterol level is 120. His lipids are in near target range. No change in his medications was made. His lipids were reviewed. He will have fasting lipid profile in the near future. Problem 192241747 Overweight (E66.3) Active confirmed He weighs 170 pounds. His body mass index is 27. He has gained 3 pounds since his last visit. We reviewed his weight loss strategy and discussed this. Problem 702866159 Tubular adenoma (D36.9) Active confirmed He will continue to undergo colonoscopies every 5 years. Problem 19507725 Carpal tunnel syndrome, right upper limb (G56.01) Active confirmed He has seen the orthopedic surgeon and will undergo surgery for carpal tunnel syndrome on the right later this month. He is cleared for surgery at this time. Problem 63255242 Coronary artery disease (I25.10) Active confirmed He has had no recent palpitations, angina, syncope or nausea. He has been compliant with all of his medications. He saw his location manager this month who found him to be stable and gave him an appointment to return in one year. Problem 855308436 BPH (benign prostatic hyperplasia) (N40.0) Active confirmed He arises from sleep once or twice a night to urinate. We have discussed lifestyle modifications he could make to reduce nocturia. Problem 925501173 Peripheral vascular disease (I73.9) Active confirmed He has significant bilateral arterial disease. In [...] 2024 and was thought to be stable. 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 He has an upcoming appointment with a neurosurgeon at the end of this month. Problem 486476510 Erectile dysfunction (N52.9) Active confirmed This is well compensated with medications. Problem 441678889 Osteoarthritis of right hip (M16.11) Active confirmed He continues to have the same pain in his right hip with walking. He is able to ambulate but it is difficult. He does not wish to consider a surgical approach. Problem 25497837 Spinal stenosis, lumbar (M48.06) Active confirmed The lumbar fusiontook place without side effects or incidents. He notices a substantial improvement in his back pain. The wound is well-healed. He reports much less pain with ambulation. 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 The discomfort has resolved. Problem Pulmonary emphysema (93497266) Emphysema lung (J43.9) Active confirmed He is no longer smoking. He is short of breath with sustained exertion but is comfortable breathing room air at rest. Problem 824401144 History of bladder cancer (Z85.51) Active confirmed There was no sign of cancer on his exam today. He recently had a cystoscopy, March 2024 which showed no gross recurrence. Surveillance will continue Problem 176588416 Stage 2 chronic kidney disease (N18.2) Active confirmed His renal function has deteriorated. His BUN is now 32 with a creatinine 1.48. His GFR is 46. His fasting lipid profile is at target. He has a significant history of arterial disease. This continues to deteriorate he will see nephrology. Vital Signs Heart Rate 80 /min 10/13/2024 Temperature 98.1 degrees Fahrenheit 10/13/2024 Blood pressure diastolic 60 mm Hg 10/13/2024 Height 66 in 10/13/2024 Blood pressure systolic 133 mm Hg 10/13/2024 Weight 170 lbs 10/13/2024 BMI 27.44 kg/m2 10/13/2024 Encounters Encounter Location Date Provider Diagnosis Trevon Colby III, MD [address] [place] [address] [place] [phone] 11/29/2023 Trevon Colby Hyperlipidemia E78.5 ; Overweight E66.3 ; Osteoarthritis of right hip M16.11 ; Spinal stenosis, lumbar M48.06 ; History of bladder cancer Z85.51 ; Peripheral vascular disease I73.9 and Coronary artery disease I25.10 Trevon Colby III, MD [address] [place] [address] [place] [phone] 02/28/2024 Trevon Colby Hyperlipidemia E78.5 ; BPH (benign prostatic hyperplasia) N40.0 ; Peripheral vascular disease I73.9 ; Stage 2 chronic kidney disease N18.2 ; Osteoarthritis of right hip M16.11 ; Spinal stenosis, lumbar M48.06 ; History of bladder cancer Z85.51 ; Former smoker Z87.891 ; Ulnar nerve entrapment at left ulnar grove G56.22 and Emphysema lung J43.9 Trevon Colby III, MD [address] [place] [address] [place] [phone] 05/01/2024 Trevon Colby Hyperlipidemia E78.5 ; Overweight E66.3 ; BPH (benign prostatic hyperplasia) N40.0 ; Former smoker Z87.891 ; History of bladder cancer Z85.51 ; Osteoarthritis of right hip M16.11 ; Peripheral vascular disease I73.9 ; Spinal stenosis, lumbar M48.06 ; Coronary artery disease I25.10 ; Emphysema lung J43.9 and Stage 2 chronic kidney disease N18.2 Trevon Colby III, MD [address] [place] [address] [place] [phone] 08/01/2024 Trevon Colby Hyperlipidemia E78.5 ; Osteoarthritis of right hip M16.11 ; Overweight E66.3 ; Spinal stenosis, lumbar M48.06 ; Carpal tunnel syndrome, right upper limb G56.01 ; Peripheral vascular disease I73.9 ; History of bladder cancer Z85.51 and Stage 2 chronic kidney disease N18.2 Trevon Colby III, MD [address] [place] [address] [place] [phone] 10/13/2024 Trevon Colby Hyperlipidemia E78.5 ; Spinal [...] Notes Treat ment Notes Treatment Clinical Notes 11/29/2023 Hyperlipidemia (ICD-10 - E78.5) No change in his medications was made. His lipids were reviewed. He will have fasting lipid profile in the near future. 11/29/2023 Overweight (ICD-10 - E66.3) He is in the overweight range. We reviewed his diet and nutrition. He made a plan to lose weight at a rate of one half of a pound per week to a diet restricted in fat caloories and sodium. 02/28/2024 Hyperlipidemia (ICD-10 - E78.5) His lipids are in near target range. No change in his medications was made. His lipids were reviewed. He will have fasting lipid profile in the near future. 02/28/2024 BPH (benign prostati c hyperplasia) (ICD-10 - N40.0) He rises from sleep once or twice a night. We discussed lifestyle modification as a way of reducing nocturia. 05/01/2024 Hyperlipidemia (ICD-10 - E78.5) His lipids are in near target range. No change in his medications was made. His lipids were reviewed. He will have fasting lipid profile in the near future. 05/01/2024 Overweight (ICD-10 - E66.3) He has lost 14 pounds and his body mass index is 26. We reviewed his diet and nutrition and weight loss strategy. 08/01/2024 Hyperlipidemia (ICD-10 - E78.5) His total [...] wish to consider a surgical approach. 10/13/2024 Hyperlipidemia (ICD-10 - E78.5) His total [...] He reports much less pain with ambulation. 11/29/2023 Osteoarthritis of right hip (ICD-10 - M16.11) He continues to have the same pain in his right hip with walking. He is able to ambulate but it is difficult. He does not wish to consider a surgical approach. 02/28/2024 Peripheral vascular disease (ICD-10 - I73.9) He has significant bilateral arterial disease. In the right lower extremity the stent is patent but he still has claudication. On the left I do not feel a pulse in the groin and his left superficial femoral artery is occluded. There is no skin breakdown on either leg. He has claudication at about 150 yards. He sees vascular surgery next week. 05/01/2024 BPH (benign prostati c hyperplasia) (ICD-10 - N40.0) He rises from sleep twice a night to urinate. His PSA is normal. We discussed lifestyle modification as a way to reduce nocturia. 08/01/2024 Overweight (ICD-10 - E66.3) His body mass index is 26. He is keeping his weight stable. We reviewed his diet and nutrition and weight loss strategy. 10/13/2024 Overweight (ICD-10 - E66.3) He weighs 170 pounds. His body mass index is 27. He has gained 3 pounds since his last visit. We reviewed his weight loss strategy and discussed this. 11/29/2023 Spinal stenosis, lumbar (ICD-10 - M48.06) The decompression surgery took place without side effects or incidents. He notices a substantial improvement in his back pain. The wound is well-healed. 02/28/2024 Stage 2 chronic kidney disease (ICD-10 - N18.2) His renal function has deteriorated. His BUN is now 43 with a creatinine 1.56. His fasting lipid profile is at target. He has a significant history of arterial disease. This continues to deteriorate he will see nephrology. 05/01/2024 Former smoker (ICD-1 0 - Z87.891) He is highly motivated not to smoke and we discussed means of preserving abstinence in times of stress. 08/01/2024 Spinal stenosis, lumbar (ICD-10 - M48.06) The decompression surgery took place without side effects or incidents. He notices a substantial improvement in his back pain. The wound is well-healed. He reports much less pain with ambulation. 10/13/2024 BPH (benign prostati c hyperplasia) (ICD-10 - N40.0) He arises from sleep once or twice a night to urinate. We have discussed lifestyle modifications he could make to reduce nocturia. 11/29/2023 History of bladder cancer (ICD-10 - Z85.51) There was no sign of cancer on his exam today. He recently had a cystoscopy, July 2023 which showed no gross recurrence.Surveill ance will continue 02/28/2024 Osteoarthritis of right hip (ICD-10 - M16.11) He continues to have the same pain in his right hip with walking. He is able to ambulate but it is difficult. He does not wish to consider a surgical approach. 05/01/2024 History of bladder cancer (ICD-10 - Z85.51) There was no sign of cancer on his exam today. He recently had a cystoscopy, March 2024 which showed no gross recurrence. Surveillance will continue 08/01/2024 Carpal tunnel syndrome, right upper limb (ICD-10 - G56.01) He has seen the orthopedic surgeon and will undergo surgery for carpal tunnel syndrome on the right later this month. He is cleared for surgery at this time. 10/13/2024 Former smoker (ICD-1 0 - Z87.891) He is highly motivated not to smoke and we discussed means of preserving abstinence in times of stress. 11/29/2023 Peripheral vascular disease (ICD-10 - I73.9) He has seen the vascular surgeon and had vascular perfusion studies.. He has significant stenoses in his lower extremities. After he recovers from his neurosurgical procedure he is going to have an attempted increasing the blood supply to his lower extremities. 02/28/2024 Spinal stenosis, lumbar (ICD-10 - M48.06) The decompression surgery took place without side effects or incidents. He notices a substantial improvement in his back pain. The wound is well-healed. 05/01/2024 Osteoarthritis of right hip (ICD-10 - M16.11) He continues to have the same pain in his right hip with walking. He is able to ambulate but it is difficult. He does not wish to consider a surgical approach. 08/01/2024 Peripheral vascular disease (ICD-10 - I73.9) [...] and was thought to be stable. 10/13/2024 History of bladder cancer (ICD-10 - Z85.51) There was no sign of cancer on his exam today. He recently had a cystoscopy, March 2024 which showed no gross recurrence. Surveillance will continue 11/29/2023 Coronary artery disease (ICD-10 - I25.10) He has had no recent palpitations, angina, syncope or nausea. He has been compliant with all of his medications. 02/28/2024 History of bladder cancer (ICD-10 - Z85.51) There was no sign of cancer on his exam today. He recently had a cystoscopy, July 2023 which showed no gross recurrence.Surveill ance will continue 05/01/2024 Peripheral vascular disease (ICD-10 - I73.9) [...] 2024 and was thought to be stable. 02/28/2024 Former smoker (ICD-1 0 - Z87.891) He is highly motivated not to smoke and we discussed means of preserving abstinence in times of stress. 05/01/2024 Spinal stenosis, lumbar (ICD-10 - M48.06) The decompression surgery took place without side effects or incidents. He notices a substantial improvement in his back pain. The wound is well-healed. 08/01/2024 Stage 2 chronic kidney disease (ICD-10 - N18.2) His renal function has deteriorated. His BUN is now 32 with a creatinine 1.48. His GFR is 46. His fasting lipid profile is at target. He has a significant history of arterial disease. This continues to deteriorate he will see nephrology. 10/13/2024 Osteoarthritis of right hip (ICD-10 - M16.11) He continues to have the same pain in his right hip with walking. He is able to ambulate but it is difficult. He does not wish to consider a surgical approach. 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 The discomfort has resolved. 05/01/2024 Coronary artery disease (ICD-10 - I25.10) He has had no recent palpitations, angina, syncope or nausea. He has been compliant with all of his medications. He saw his location manager this month who found him to be stable and gave him an appointment to return in one year. 10/13/2024 Coronary artery disease (ICD-10 - I25.10) He has had no recent palpitations, angina, syncope or nausea. He has been compliant with all of his medications. He saw his location manager this month who found him to be stable and gave him an appointment to return in one year. 02/28/2024 Emphysema lung (ICD-10 - J43.9) He is no longer smoking. He is short of breath with sustained exertion but is comfortable breathing room air at rest. 05/01/2024 Emphysema lung (ICD-10 - J43.9) He is no longer smoking. He is short of breath with sustained exertion but is comfortable breathing room air at rest. 10/13/2024 Stage 2 chronic kidney disease (ICD-10 - N18.2) His renal function has deteriorated. His BUN is now 32 with a creatinine 1.48. His GFR is 46. His fasting lipid profile is at target. He has a significant history of arterial disease. This continues to deteriorate he will see nephrology. 05/01/2024 Stage 2 chronic kidney disease (ICD-10 [...] room air at rest. Plan Of Treatment Pending Test Test Name Order Date PROFILE, FASTING (COMPREHENSIVE METABOLI C) 11/25/2020 PROFILE, FASTING (COMPREHENSIVE METABOLI C) 05/01/2024 PROFILE, FASTING (COMPREHENSIVE METABOLI C) 06/03/2018 PROFILE, FASTING (COMPREHENSIVE METABOLI C) 01/12/2020 PROFILE, FASTING (COMPREHENSIVE METABOLI C) 08/25/2020 PROFILE, FASTING (COMPREHENSIVE METABOLI C) 07/25/2021 PROFILE, FASTING (COMPREHENSIVE METABOLI C) 02/28/2024 PROFILE, FASTING (COMPREHENSIVE METABOLI C) 03/04/2018 PROFILE, FASTING (COMPREHENSIVE METABOLI C) 04/22/2019 PROFILE, FASTING (COMPREHENSIVE METABOLI C) 04/22/2021 PROFILE, FASTING (COMPREHENSIVE METABOLI C) 05/20/2020 PROFILE, FASTING (COMPREHENSIVE METABOLI C) 11/29/2023 PROFILE, FASTING (COMPREHENSIVE METABOLI C) 10/13/2024 PROFILE, FASTING (COMPREHENSIVE METABOLI C) 12/23/2018 PROFILE, FASTING (COMPREHENSIVE METABOLI C) 10/26/2021 PROFILE, RANDOM (COMPREHENSIVE METABOLIC ) 06/26/2023 LIPID PANEL 06/26/2023 LIPID PANEL 12/23/2018 LIPID PANEL 10/26/2021 LIPID PANEL 11/25/2020 LIPID PANEL 06/03/2018 LIPID PANEL 01/12/2020 LIPID PANEL 08/25/2020 LIPID PANEL 07/25/2021 LIPID PANEL 03/04/2018 LIPID PANEL 04/22/2019 LIPID PANEL 04/22/2021 LIPID PANEL 05/20/2020 PSA, TOTAL 04/22/2021 PSA, TOTAL 10/13/2024 PSA, TOTAL 06/26/2023 PSA, TOTAL 10/26/2021 PSA, TOTAL 05/01/2024 PSA, TOTAL 06/03/2018 PSA, TOTAL 02/28/2024 PSA, TOTAL 08/25/2020 PSA, TOTAL 03/04/2018 PSA, TOTAL 04/22/2019 CBC w DIFF 04/22/2019 CBC w DIFF 05/20/2020 CBC w DIFF 04/22/2021 CBC w DIFF 12/23/2018 CBC w DIFF 11/25/2020 CBC w DIFF 06/26/2023 CBC w DIFF 10/26/2021 CBC w DIFF 01/12/2020 CBC w DIFF 06/03/2018 CBC w DIFF 07/25/2021 CBC w DIFF 02/28/2024 CBC w DIFF 08/25/2020 CBC w DIFF 03/04/2018 Echocardiogram 01/31/2023 PFT with DLCO 02/01/2023 CBC WITH AUTO DIFF 11/29/2023 CBC WITH AUTO DIFF 10/13/2024 CBC WITH AUTO DIFF 05/01/2024 Lipid Panel 11/29/2023 Lipid Panel 10/13/2024 Lipid Panel 05/01/2024 Lipid Panel 02/28/2024 ECG 12 lead EKG 08/23/2023 Next Appt Details Provider Name:Trevon Colby, 02/11/2025 10:00:00 AM, [address] [facility] [address], [place], [phone], Provider Name:Trevon Colby, 05/05/2025 09:30:00 AM, [address] [facility] [address] [address] [place], [place], [phone], Insurance Providers Payer Name Payer Address Payer Phone Subscriber Number Group Number Insured Name Patient Relationship to Insured Coverage Start Date Coverage End Date [employer] [address] [place], [place] [phone] [id number] Spencer Price Self - patient is the insured Medical (General) History Medical History History ICD Code hyperlipidemia osteoarthritis with right hip replacemen t cancer of the bladder, Dr. 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 erectile dysfunction right sided sciatica lateral carpal tunnel syndrome 07/2013 normal echocardiogram ejection fr action 60% right renal cyst BPH left shoulder nerve entrapment tubular adenoma October 2003 claudication reported November 2015 coronary artery disease with stent 2015, IMI Dr Hull lower back pain Back surgery on September 17 Surgical History Surgery Date(Month/Year) L3-L5 fusion [facility] [place] 09/18/2024 Left femoral endarterectomy, right superficial Femoral artery atherectomy and angioplasty 06/2018 Right popliteal and peroneal artery athe rectomy and angioplasty 12/2017 Angioplasty right peroneal and popliteal artery 04/13/2021 Lumbar L3-5 Laminectomy, par tial facetectomy, foraminotomy, [facility], Dr Baltazar 10/25/[address] Bear 04/2021 carpal tunnel right hand 10/2019 carpal tunnel surgery right hand, Instru m 04/2018 right common femoral artery angioplasty 2015 left iliofemoral endarterectomy 2015 cardiac catheterization with stent insertion, inferior wall ischemia, 99% right coronary artery stenosis 2015 colonoscopy, negative 2011 colonoscopy, negative 2006 colonoscopy, tubular adenoma 2002 Cataract surgery both eyes 2010 Hip replacement right appendectomy herniorrhaphy Hospitalization History Reason Date(Month/Year) Back surgery on september 1709/2024
--- OUTSIDE RECORDS SUMMARY | 2024-11-13 10:09 | XMS_ITS | Encounter Summary ---
Author Name [facility] [place] Organization [place] Address [address] [place] [id number] Care Team Providers Care Airport Shuttle Driver Name Role Phone LAURIE SANCHEZ Primary Care [...] Weiss's Name Patient's Relationship to Policy Weiss [facility] (WNR) MEDICARE ADVANTAGE [facility] (WNR) Nov 12, 2017 [id number] [phone] Eduar COMBS PATIENT [place] [facility] STACY DURAN PA March 27, 2018 STACY CHURCHILL [id number] Eduar COMBS PATIENT Selected Encounter This section includes the information on record at [place] for the Encounter. Date/Time Encounter Type Encounter Description Reason Provider Source Feb 25, 2024 07:15 AM CLEAN/INSPECT JOSE PART DENT DENTAL ICD-10-CM K03.6 Deposits [accretions] on teeth ZACK TAFOYA IHE Encounter Template Text not used by [facility] Assessments - Encounter Diagnoses This section includes the primary and secondary diagnoses documented for the Encounter. Date/Time Primary/Secondary Diagnosis Diagnosis Name Provider Source Feb 25, 2024 07:59 AM PRIMARY Deposits [accretions] on teeth [facility]ACK TAFOYA [facility] Plan of Treatment: Future Appointments (+ 6 months) and Future Tests (+/- 45 days) The Plan of Treatment section includes future care activities for the patient from all [place] treatmentfacilities. This section includes future appointments and future orders which are active, pending or scheduled. Future Appointments This section includes appointments that were scheduled to occur 6 months from the date of the Encounter, up to a maximum of 20 appointments. The data comes from all [place] treatment facilities. Appointment Date/Time Appointment Type Appointme nt Facility Name Mar 05, 2024 03:15 PM [facility] March 24, 2024 08:30 AM [facility] May 01, 2024 08:00 AM [facility] May 12, 2024 07:00 AM [facility] Jun 26, 2024 09:30 AM [facility] Social History: Smoking Status (Most current) and Tobacco Use (All prior to encounter date) This section includes the most current, and the historical, smoking and tobacco- related health factors from the [place] facility where the Encounter took place. Current Smoking Status This section includes the most current smoking, or tobacco-related health factor, from the [place] facility where the Encounter took place. Date/Time Current Smoking Status Comment Sarwat itkarl March 29, 2023 08:30 AM [place]-TOBACCO FORMER USER [facility] Tobacco Use History This section includes a history of the smoking, or tobacco-related health factors, that were collected on or before the date of the Encounter. The data comes from the [place] facility where the Encounter took place. Date/Time Smoking Status/Tobacco Use Comment F acaroldo March 29, 2023 08:30 AM [facility] Feb 10, 2022 08:30 AM [place]-TOBACCO FORMER USER [facility] Feb 10, 2022 08:30 AM VA-TOBACCO QUIT 15 YRS OR MORE [facility] [place] [facility] Jan 14, 2021 09:00 AM VA-TOBACCO FORMER USER [facility] [place] [facility] Jan 14, 2021 09:00 AM VA-TOBACCO QUIT 15 YRS OR MORE [facility] [place] [facility] Dec 23, 2018 09:29 AM VA-TOBACCO FORMER USER [facility] [place] [facility] Dec 23, 2018 09:29 AM VA-TOBACCO QUIT 15 YRS OR MORE [facility] [place] [facility] Dec 23, 2018 08:28 AM VA-TOBACCO FORMER USER [facility] [place] [facility] Dec 23, 2018 08:28 AM VA-TOBACCO QUIT 15 YRS OR MORE [facility] [place] [facility] Jun 22, 2017 09:22 AM LIFETIME NON-TOBACCO USER [place] [facility] [place] [facility] Encounter Notes: All associated encounter notes This section contains the clinical notes associated to the Encounter. Date/Time Encounter Note(s) Provider Source Feb 25, 2024 07:59 AM DENTISTRY NOTE: LOCAL TITLE: DENTAL NOTE STANDARD TITLE: DENTISTRY NOTE DATE OF NOTE: FEB 25, 2024@07:59 ENTRY DATE: FEB 25, 2024@07:59:58 AUTHOR: FARNAZ TAFOYA EXP COSIGNER: URGENCY: STATUS: COMPLETED Patient Name: IFTIKHAR COMBS, : 1945, Age: 78 Visit: S: Feb 25, 2024@07:15 CWM/NO/DENTAL/RDH2 AM. Primary PCE Diagnosis: K03.6 (Deposits [accretions] on teeth). Dental Category: 15-OPC, Class IV. Treatment Status: Maintenance. Completed Care: (D1110) DENTAL PROPHYLAXIS ADULT. DX: K03.6 Deposits [Accretions] on Teeth (D1206) TOPICAL FLUORIDE VARNISH. DX: K03.6 Deposits [Accretions] on Teeth (D1330) ORAL HYGIENE INSTRUCTION. DX: K03.6 Deposits [Accretions] on Teeth (D9994) CASE MGMT-ORAL HEALTH LIT. DX: K03.6 Deposits [Accretions] on Teeth (D9934) CLEAN/INSPECT MAX PART DENT. DX: K03.6 Deposits [Accretions] on Teeth (D9935) CLEAN/INSPECT JOSE PART DENT. DX: K03.6 Deposits [Accretions] on Teeth Periodontal Screening/Recording (PSR): 3-2-3 - - - 3-2-3 TIME OUT/Safety goals were verified immediately prior to the procedure. (Correct patient, procedure, site, position) Full name and date used. STERILIZATION MONITOR IN INSTRUMENT PACK CHECKED AND CONFIRMED CC: NONE PAST MEDICAL HISTORY: Reviewed, no contraindications for treatment LAST RADIOGRAPHS: PANO 03/02 BWX 09/03 NEW RADIOGRAPHS: not due SOFT TISSUE SCREENING: no abnormalities noted EXAMINATION: not due ORAL HYGIENE ASSESSMENT: plaque light stain light PERIODONTAL ASSESSMENT: calculus light inflamation light bop light probing deepth 2-4 mm recession general REVIEWED ORAL HEALTH REPORT: CARIES RISK: high GUM DISEASE: high ORAL CANCER RISK: n/a DENTAL TREATMENT PROVIDED: PROPHYLAXIS: hand scaling, piezo, french mn and mx partial cleaned TOPICAL FLUORIDE APPLICATION - [place] pre procedural rinse 30 seconds ORAL HYGIENE INSTRUCTIONS GIVEN TO PATIENT: review cervical brushing technique recomended 2 times a day, review flossing technique 2 times a day. Explain importance of daily plaque removal. Discuss possible cause of recession. DISPOSITION: 6 MONTHS RECARE Oral Health Assessment Findings: Plaque Index: 1 - Slight Xerostomia: 0 - None Caries Risk: 3 - High Oral Hygiene: 2 - Fair - - - - - - - - - - - - - - - - - - - - - - - - - - - - - - nv: 6 mo recall 4 bwx ravinder 75 min /es/ FARNAZ TAFOYA [facility], DENTAL SERVICE Signed: 02/25/2024 07:59 [facility]Z [facility]
--- OUTSIDE RECORDS SUMMARY | 2024-11-13 10:09 | XMS_ITS | Encounter Summary ---
Author Name [facility] [place] [facility] [place] Organization [place] Address [address] [place] [address] Care Team Providers Care Consumer Services Consultant Name Role Phone LAURIE SANCHEZ Primary Care [...] Weiss's Name Patient's Relationship to Policy Weiss [facility] (WNR) MEDICARE ADVANTAGE [facility] (WNR) Nov 12, 2017 [id number] [phone] Eduar COMBS PATIENT [place] [facility] [place] March 27, 2018 STACY CHURCHILL [id number] Eduar COMBS PATIENT Selected Encounter This section includes the information on record at [place] for the Encounter. Date/Time Encounter Type Encounter Description Reason Pro vider Source Nov 28, 2023 09:26 AM Outpatient Encounter COMMUNITY CARE CONSULT IHE Encounter [...] 20 appointments. The data comes from all [place] treatment facilities. Appointment Date/Time Appointment Type Appointme nt Facility Name Feb 04, 2024 09:30 AM [facility]ULATORY [facility]ICINE [facility] [place] [facility] Feb 25, 2024 07:15 AM AMBULATORY - NONE [facility] [place] [facility] Mar 05, 2024 03:15 PM AMBULATORY - MEDICINE [facility] [place] [facility] March 24, 2024 08:30 AM AMBULATORY - MEDICINE [facility] [place] [facility] May 01, 2024 08:00 AM AMBULATORY - MEDICINE [facility] [place] [facility] May 12, 2024 07:00 AM AMBULATORY - MEDICINE [facility] [place] [facility] Social History: Smoking Status (Most current) and Tobacco Use (All prior to encounter date) This section includes the most current, and the historical, smoking and tobacco- related health factors from the [place] facility where the Encounter took place. Current Smoking Status This section includes the most current smoking, or tobacco-related health factor, from the [place] facility where the Encounter took place. Date/Time Current Smoking Status Comment Facil ity March 29, 2023 08:30 AM [place]-TOBACCO FORMER USER [place] [facility] [place] [facility] Tobacco Use History This section includes a history of the smoking, or tobacco-related health factors, that were collected on or before the date of the Encounter. The data comes from the [place] facility where the Encounter took place. Date/Time Smoking Status/Tobacco Use Comment F acility March 29, 2023 08:30 AM VA-TOBACCO QUIT 15 YRS OR MORE [facility] [place] [facility] Feb 10, 2022 08:30 AM VA-TOBACCO FORMER USER [facility] [place] [facility] Feb 10, 2022 08:30 AM VA-TOBACCO QUIT 15 YRS OR MORE [facility] [place] [facility] Jan 14, 2021 09:00 AM VA-TOBACCO FORMER USER [facility] [place] [facility] Jan 14, 2021 09:00 AM VA-TOBACCO QUIT 15 YRS OR MORE [facility] [place] [facility] Dec 23, 2018 09:29 AM VA-TOBACCO FORMER USER [place] [facility] [place] [facility] Dec 23, 2018 09:29 AM VA-TOBACCO QUIT 15 YRS OR MORE [place] [facility] [place] [facility] Dec 23, 2018 08:28 AM VA-TOBACCO FORMER USER [place] [facility] [place] [facility] Dec 23, 2018 08:28 AM VA-TOBACCO QUIT 15 YRS OR MORE [place] [facility] [place] [facility] Jun 22, 2017 09:22 AM LIFETIME NON-TOBACCO USER [facility] Encounter Notes: All associated encounter notes This section contains the clinical notes associated to the Encounter. Date/Time Encounter Note(s) Provider Source Nov 28, 2023 09:26 AM NONVA NOTE: LOCAL TITLE: COMMUNITY CARE-CARE COORDINATION PLAN NOTE STANDARD TITLE: NONVA NOTE DATE OF NOTE: NOV 28, 2023@09:26 ENTRY DATE: NOV 28, 2023@09:26:20 AUTHOR: CELESTINO VERA COSIGNER: URGENCY: STATUS: COMPLETED Care Coordination Follow Up CC-Vascular Surgery Level of Care Coordination Moderate Care Coordination was determined from: Chart Review Fax request from [facility]: Basic Care Coordination Services Direct communication to referring provider OCC received a fax request from [facility] Pt is due for follow-up in 02/2024, peripheral arterial disease. [place] will schedule appt once preauth is received. If PCP is agreeable, please submit a new CC-Vascular Surgery consult for this care, thank you /yaniv/ TAI KIRKPATRICK Nurse Practitioner Signed: 11/28/2023 09:28 Receipt Acknowledged By: 11/28/2023 16:36 /yaniv/ LAURIE SANCHEZ MD PHYSICIAN 11/29/2023 09:10 /yaniv/ RENU HARRIS, MSN, RN, CNL PRIMARY CARE TEAM NURSE [facility]
--- OUTSIDE RECORDS SUMMARY | 2024-11-13 10:09 | XMS_ITS | Encounter Summary ---
Author Name [facility] [place] Organization [facility] [place] Address [address] [place] [address] Care Team Providers Care Medical Receptionist Name Role Phone LAURIE SANCHEZ Primary Care [...] Weiss [facility] (WNR) MEDICARE ADVANTAGE [facility] (WNR) Nov 12, 2017 [id number] Eduar COMBS [facility] CLASS [place] [place] March 27, 2018 STACY CHURCHILL [id number] Eduar COMBS PATIENT Selected Encounter This section includes the information on record at [place] for the Encounter. Date/Time Encounter Type Encounter Description Reason Pro vider Source Feb 22, 2024 08:09 AM Outpatient Encounter DENTAL IHE Encounter Template Text not used by [place] Plan of Treatment: Future Appointments (+ 6 [...] Appointment Type Appointme nt Facility Name Feb 25, 2024 07:15 AM AMBULATORY [facility] NONE [facility] [place] [facility] Mar 05, 2024 03:15 PM AMBULATORY - MEDICINE [facility] [place] [facility] March 24, 2024 08:30 AM AMBULATORY - MEDICINE [facility] [place] [facility] May 01, 2024 08:00 AM AMBULATORY - MEDICINE [facility] [place] [facility] May 12, 2024 07:00 AM AMBULATORY - MEDICINE [facility] [place] [facility] Jun 26, 2024 09:30 AM AM[place]ULATORY [place]ICINE [place] [facility] [place] [facility] Social History: Smoking Status (Most current) and Tobacco Use (All prior to encounter date) This section includes the most current, and the historical, smoking and tobacco- related health factors from the [place] facility where the Encounter took place. Current Smoking Status This section includes the most current smoking, or tobacco-related health factor, from the [place] facility where the Encounter took place. Date/Time Current Smoking Status Comment Facil ity March 29, 2023 08:30 AM VA-TOBACCO FORMER USER [place] [facility] [place] [facility] Tobacco Use History This section includes a history of the smoking, or tobacco-related health factors, that were collected on or before the date of the Encounter. The data comes from the [place] facility where the Encounter took place. Date/Time Smoking Status/Tobacco Use Comment F acility March 29, 2023 08:30 AM VA-TOBACCO QUIT 15 YRS OR MORE [facility] [place] [facility] Feb 10, 2022 08:30 AM VA-TOBACCO FORMER USER [facility] [place] [facility] Feb 10, 2022 08:30 AM VA-TOBACCO QUIT 15 YRS OR MORE [facility] [place] [facility] Jan 14, 2021 09:00 AM VA-TOBACCO FORMER USER [facility] [place] [facility] Jan 14, 2021 09:00 AM VA-TOBACCO QUIT 15 YRS OR MORE [facility] [place] [facility] Dec 23, 2018 09:29 AM VA-TOBACCO FORMER USER [place] [facility] [place] [facility] Dec 23, 2018 09:29 AM VA-TOBACCO QUIT 15 YRS OR MORE [place] [facility] [place] [facility] Dec 23, 2018 08:28 AM VA-TOBACCO FORMER USER [place] [facility] [place] [facility] Dec 23, 2018 08:28 AM VA-TOBACCO QUIT 15 YRS OR MORE [place] [facility] [place] [facility] Jun 22, 2017 09:22 AM LIFETIME NON-TOBACCO USER [facility] Encounter Notes: All associated encounter notes This section contains the clinical notes associated to the Encounter. Date/Time Encounter Note(s) Provider Source Feb 22, 2024 08:09 AM TELEPHONE ENCOUNTE R NOTE: LOCAL TITLE: TELEPHONE NOTE/SPECIALTY CLINIC STANDARD TITLE: TELEPHONE ENCOUNTER NOTE DATE OF NOTE: FEB 22, 2024@08:09 ENTRY DATE: FEB 22, 2024@08:09:17 AUTHOR: DINO JOHNS EXP COSIGNER: URGENCY: STATUS: COMPLETED Called and spoke with pt to remind them that they have a FTF appt with the dental clinic on 02/25/2024 at 715. Location was confirmed /yaniv/ DINO JOHNS [employer] RAIL EQUIPMENT OPERATOR Signed: 02/22/2024 08:13 DINO JOHNS [facility]
--- OUTSIDE RECORDS SUMMARY | 2024-11-13 10:09 | XMS_ITS ---
Author Name [facility] of Veter[facility] [place] Organization [facility] [place] Address [address] [place] [id number] Care Team Providers Care Human Factors Scientist Name Role Phone LAURIE SANCHEZ Primary Care [...] Weiss's Name Patient's Relationship to Policy Weiss [facility] (WNR) MEDICARE ADVANTAGE [facility] (WNR) Nov 12, 2017 [id number] Eduar COMBS PATIENT [place] [facility] SPECIAL [facility] [place] March 27, 2018 STACY CHURCHILL [id number] Eduar COMBS PATIENT Selected Encounter This section includes the information on record at [place] for the Encounter. Date/Time Encounter Type Encounter Description Reason Provider Source March 24, 2024 08:30 AM OFFICE O/P EST MOD 30 MIN PRIMARY CARE/MEDICINE ICD-10-CM M54.17 Radiculopathy, lumbosacral region Zach SANCHEZ Encounter Template Text not used by [place] Assessments - Encounter Diagnoses This section includes the primary and secondary diagnoses documented for the Encounter. Date/Time Primary/Secondary Diagnosis Diagnosis Name Provider Source March 24, 2024 09:15 AM PRIMARY Radiculopathy, lumbosacral region [facility] March 24, 2024 09:15 AM SECONDARY Athscl heart disease of [place] coronary artery w/o ang pctrs LAURIE [facility]ANCHEZ [facility] March 24, 2024 09:15 AM SECONDARY Essential (primary) hypertension [facility]IE [facility]ANCHEZ [facility] March 24, 2024 09:15 AM SECONDARY Hyperlipidemia, unspecified [facility]IE [facility]HE[facility] Plan of Treatment: Future Appointments (+ 6 months) and Future Tests (+/- 45 days) The Plan of Treatment section includes future care activities for the patient [facility] [place] [facility] [place] This section includes future appointments and future orders which are active, pending or scheduled. Future Appointments This section includes appointments that were scheduled to occur 6 months from the date of the Encounter, up to a maximum of 20 appointments. The data comes from all [place] treatment facilities. Appointment Date/Time Appointment Type Appointme nt Facility Name May 01, 2024 08:00 AM AMBULATORY - MEDICINE [facility] May 12, 2024 07:00 AM AMBULATORY - MEDICINE [facility] [place] [facility] Jun 26, 2024 09:30 AM AMBULATORY - MEDICINE [facility] Sep 02, 2024 09:45 AM AMBULATORY - NONE [facility] Vital Signs: All taken on the encounter date This section contains inpatient and outpatient Vital Signs collected on the date of the Encounter. Date/Time Temperature Pulse Blood Pressure Respiratory Rate SP02 Pain Height Weight Body Mass Index Source March 24, 2024 08:37 AM 55 136/61 19 96 [facility] Social History: Smoking Status (Most current) and Tobacco Use (All prior to encounter date) This section includes the most current, and the historical, smoking and tobacco- related health factors from the [place] facility where the Encounter took place. Current Smoking Status This section includes the most current smoking, or tobacco-related health factor, from the [place] facility where the Encounter took place. Date/Time Current Smoking Status Comment Sarwat ity March 24, 2024 08:30 AM VA-TOBACCO NEVER USED [place] [facility] [place] [facility] Tobacco Use History This section includes a history of the smoking, or tobacco-related health factors, that were collected on or before the date of the Encounter. The data comes from the [place] facility where the Encounter took place. Date/Time Smoking Status/Tobacco Use Comment F acility March 29, 2023 08:30 AM VA-TOBACCO FORMER USER [facility] [place] [facility] March 29, 2023 08:30 AM VA-TOBACCO QUIT 15 YRS OR MORE [facility] [place] [facility] Feb 10, 2022 08:30 AM VA-TOBACCO FORMER USER [facility] [place] [facility] Feb 10, 2022 08:30 AM VA-TOBACCO QUIT 15 YRS OR MORE [place] [facility] [place] [facility] Jan 14, 2021 09:00 AM VA-TOBACCO FORMER USER [facility] [place] [facility] Jan 14, 2021 09:00 AM VA-TOBACCO QUIT 15 YRS OR MORE [facility] [place] [facility] Dec 23, 2018 09:29 AM VA-TOBACCO FORMER USER [facility] [place] [facility] Dec 23, 2018 09:29 AM VA-TOBACCO QUIT 15 YRS OR MORE [facility] [place] [facility] Dec 23, 2018 08:28 AM VA-TOBACCO FORMER USER [facility] [place] [facility] Dec 23, 2018 08:28 AM VA-TOBACCO QUIT 15 YRS OR MORE [facility] [place] [facility] Jun 22, 2017 09:22 AM LIFETIME NON-TOBACCO USER [place] [facility] [place] [facility] Encounter Notes: All associated encounter notes This section contains the clinical notes associated to the Encounter. Date/Time Encounter Note(s) Provider Source March 24, 2024 08:42 AM PREVENTIVE MEDICINE NURSING NOTE: LOCAL TITLE: CLINICAL REMINDERS/NURSING STANDARD TITLE: PREVENTIVE MEDICINE NURSING NOTE DATE OF NOTE: MARCH 24, 2024@08:42 ENTRY DATE: MARCH 24, 2024@08:43:01 AUTHOR: PICH,BARB EXP COSIGNER: URGENCY: STATUS: COMPLETED Suicide Screen: C-SSRS Screening [place] Suicide Severity Rating Scale (C-SSRS) screener 1. Over the past month, have you wished you were or wished you could go to sleep and not wake up? No 2. Over the past month, have you had any actual thoughts of killing yourself? No 3. Over the past month, have you been thinking about how you might do this? Response not required due to responses to other questions. 4. Over the past month, have you had these thoughts and had some intention of acting on them? Response not required due to responses to other questions. 5. Over the past month, have you started to work out or worked out the details of how to kill yourself? Response not required due to responses to other questions. 6. If yes, at any time in the past month did you intend to carry out this plan? Response not required due to responses to other questions. 7. In your lifetime, have you ever done anything, started to do anything, or prepared to do anything to end your life (for example, collected pills, obtained a gun, gave away valuables, went to the roof but didn't jump)? No 8. If YES, was this within the past 3 months? Response not required due to responses to other questions. Homelessness/Food Insecurity Screen: In the past 2 months, have you been living in stable housing that you own, rent, or stay in as part of a household? Yes - Living in stable housing. Are you worried or concerned that in the next 2 months you may NOT have stable housing that you own, rent, or stay in as part of a household? No - Not worried about housing near future [facility] reports the following: Within the past 12 months, you worried whether your food would run out before you got money to buy more. Never true Within the past 12 months, the food you bought just didn't last and you didn't have money to get more. Never true Depression Screening: Perform PHQ-2 A PHQ-2 screen was performed. The score was 0 which is a negative screen for depression. Over the past two weeks, how often have you been bothered by the following problems? 1. Little interest or pleasure in doing things Not at all 2. Feeling down, depressed, or hopeless Not at all Falls & Incontinence Screen: Falls Screen: 4. No falls within the past year. Incontinence Screen No incontinence. PTSD Screening: PC-PTSD-5 A PTSD screening test (PC-PTSD-5) was negative (score=0). IN THE PAST MONTH, have you ever had any experience that was so frightening, horrible or traumatic. For example: A serious accident or fire a physical or sexual assault or abuse An earthquake or flood A war Seeing someone be killed or seriously injured Having a loved one through homicide or suicide 1. Have you ever experienced this kind of event? NO 2. Had nightmares about the event(s) or thought about the event(s) when you did not want to? Response not required due to responses to other questions. 3. Tried hard not to think about the event(s) or went out of your way to avoid situations that reminded you of the event(s)? Response not required due to responses to other questions. 4. Been constantly on guard, watchful, or easily startled? Response not required due to responses to other questions. 5. [place] numb or detached from people, activities, or your surroundings? Response not required due to responses to other questions. 6. [place] guilty or unable to stop blaming yourself or others for the event(s) or any problems the event(s) may have caused? Response not required due to responses to other questions. Tobacco Use Screening: The patient has never used tobacco. Influenza Immunization: The patient has received the seasonal influenza vaccine for the current season at another location. Documented: INFLUENZA, UNSPECIFIED FORMULATION Historical Date Administered: Jul 2023 Exact date unknown Outside Location: Outside Healthcare Provider Information Source: SOURCE UNSPECIFIED Alcohol Use Screen (AUDIT-C): Alcohol Screen: SCREEN FOR ALCOHOL (AUDIT-C) An alcohol screening test (AUDIT-C) was negative (score=0). 1. How often did you have a drink containing alcohol in the past year? Consider a drink to be a 12 ounce can or bottle of regular beer, 8 ounces of malt liquor, a 5 ounce glass of table wine, or a 1.5 ounce shot of liquor (like scotch, gin, or vodka). Never 2. How many drinks containing alcohol did you have on a typical day when you were drinking in the past year? Response not required due to responses to other questions. 3. How often did you have six or more drinks on one occasion in the past year? Response not required due to responses to other questions. /yaniv/ Barb Keith RN Primary Care Staff Nurse Signed: 03/24/2024 08:47 BARB KEITH [place] [facility] [facility] March 24, 2024 08:37 AM PHYSICIAN NOTE: LOCAL TITLE: MD NOTE STANDARD TITLE: PHYSICIAN NOTE DATE OF NOTE: MARCH 24, 2024@08:37 ENTRY DATE: MARCH 24, 2024@08:37:22 AUTHOR: VASILIY SANCHEZ EXP COSIGNER: URGENCY: STATUS: COMPLETED HISTORY OF PRESENT ILLNESS: = IFTIKHAR KAYLA COMBS, is a 78 yo WHITE MALE who presents at the [facility]. many problems HPI. this vet presents to PCP clinic to report he had lumbar stenosis surgery which relieved pain down his legs and he is pleased with outcome of surgery since Nov, 2023. He continues to have stiffness and pain in lower back and this limits his activity/vet urged today to begin any exercise program he will tolerate and that he will do consistently. He denies any problems with bowel or bladder, no fevers. He has no angina, his CAD is stable on both plavix and ASA and his BP has been not consistently controlled. he will monitor BP at home and agrees to incr CORNELIUS dose and will continue meds for cholesterol. SH- quit smoking yrs ago Active problems - Computerized Problem List is the source for the followin. Lumbosacral neuritis 2. Hypertension 3. Admits alcohol use 4. PAD - Peripheral arterial disease 5. CAD - Coronary Artery Disease ([facility] [id number]) 6. Degenerative disc disease 7. BPH - Benign prostatic hypertrophy 8. Under care of multiple providers 9. H/O cardiac surgery 10. History of - surgery 11. Screening status 12. Hyperlipidemia 13. 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 HISTORY: PERIOD OF SERVICE - [place] [facility] [employer] FROM Dec TO Dec COMBAT SERVICE INDICATED: No SERVICE CONNECTED % - 100 VITAL SIGNS: Temperature Unavailable (08/21/2023 07:21) Blood Pressure 134/78 (08/21/2023 07:21) Pulse Unavailable (08/21/2023 07:21) Respiration Unavailable (08/21/2023 07:21) Pain 0 (08/21/2023 07:21) BMI BMI: Weight Unavailable (08/21/2023 07:21) Pulse Oximetry Review of Systems: CONSTITUTIONAL: No fever, no loss of appetite ENT: No sore throat, no cough CARDIOVASCULAR: No chest pain, no palpitations RESPIRATORY: No SOB, no wheezing GASTROINTESTINAL: No abd pain, no N/V/D, no change in stool EXAMINATION General: Well-appearing, older gentleman in no obvious distress. Mental Status: Alert and oriented x 3 Head: Normocephalic. Lungs: CTA. no crackles, no wheezing CV: RRR. No murmur Neuro: Normal speech & he moves with stiffness/mild forward bending posture due to long hx of back pain Psych: Normal mood and affect. Normal judgment. DATA REVIEW >> MEDICATIONS Reviewed Today (VA & Non VA) ALLERGIES: PERCOCET Active Outpatient Medications (including Supplies): Issue Date Status Last Fill Active Outpatient Medications Refills Expiration 1) ASPIRIN 81MG EC TAB Qty: 120 for 90 ACTIVE Issu:03-29-23 days Sig: TAKE ONE TABLET BY MOUTH Refills: 1 Last:01-14-24 ONCE DAILY TO PREVENT STROKE/HEART Expr:03-29-24 ATTACK 2) ATORVASTATIN CALCIUM 80MG TAB Qty: 90 ACTIVE Issu:03-29-23 for 90 days Sig: TAKE ONE TABLET BY Refills: 0 Last:01-14-24 MOUTH ONCE DAILY FOR CHOLESTEROL Expr:03-29-24 3) CLOPIDOGREL BISULFATE 75MG TAB Qty: 90 ACTIVE Issu:03-29-23 for 90 days Sig: TAKE ONE TABLET BY Refills: 0 Last:02-14-24 MOUTH ONCE DAILY Expr:03-29-24 4) EZETIMIBE 10MG TAB Qty: 90 for 90 days ACTIVE Issu:03-29-23 Sig: TAKE ONE TABLET BY MOUTH ONCE Refills: 1 Last:01-14-24 DAILY TO LOWER CHOLESTEROL Expr:03-29-24 5) HCTZ 12.5/LISINOPRIL 10MG TAB Qty: 90 ACTIVE Issu:03-29-23 for 90 days Sig: TAKE 1 TABLET BY Refills: 0 Last:01-14-24 MOUTH AT BEDTIME Expr:03-29-24 6) METOPROLOL SUCCINATE 50MG SA TAB Qty: ACTIVE Issu:03-24-23 90 for 90 days Sig: TAKE ONE TABLET Refills: 0 Last:12-30-23 BY MOUTH ONCE DAILY FOR BLOOD Expr:03-24-24 PRESSURE/HEART 7) SODIUM FLUORIDE 1.1% TOOTHPASTE Qty: ACTIVE Issu:06-01-23 204 for 90 days Sig: BRUSH SMALL Refills: 1 Last:03-09-24 AMOUNT TO TEETH TWICE DAILY Expr:06-01-24 >> LABS REVIEWED TODAY: CHEM 7 TREND LAB CUMULATIVE SELECTED Collection DT Spec GLUCOSE BUN CREATIN Sodium K+/Pot CL CO2 05/25/2022 09:59 SERUM 93 24 1.14 136 4.8 101 28 02/10/2022 08:08 SERUM 91 18 1.00 138 4.8 105 27 12/14/2017 08:51 SERUM 84 24 1.02 137 4.9 104 28 06/22/2017 11:38 SERUM 80 26 H 1.22 141 5.0 105 31 H LAB CUMULATIVE SELECTED 2 No selection items chosen for this component. CHEM 7 Results Collection DT Spec Sodium K+/Pot CL CO2 GLUCOSE BUN 05/25/2022 09:59 SERUM 136 4.8 101 28 93 24 02/10/2022 08:08 SERUM 138 4.8 105 27 91 18 12/14/2017 08:51 SERUM 137 4.9 104 28 84 24 06/22/2017 11:38 SERUM 141 5.0 105 31 H 80 26 H === CBC TREND Collection DT Spec WBC RBC HGB HCT MCV MCH PLT 02/10/2022 08:08 BLOOD 4.69 4.37 14.7 43.8 100.2 H 33.6 H 271 12/14/2017 08:52 BLOOD 4.89 4.66 15.3 45.5 97.6 32.8 H 238 06/22/2017 11:38 BLOOD 5.08 4.24 13.8 41.4 97.6 32.5 279 === HEMOGLOBIN A1C TREND Collection DT Spec HGBA1c 02/10/2022 08:08 BLOOD 5.2 === LIPID PANEL TREND Collection DT Spec CHOL HDL CHO/HDL LDL-c TRIG 02/10/2022 08:08 SERUM 120 60 2.0 52 42 06/22/2017 11:38 SERUM 154 44 3.5 90 100 === UREA NITROGEN - NONE FOUND CREATININE-EGFR - NONE FOUND === LIVER PANEL TREND Collection DT Spec AST ALT T BILI ALK MAHAD T. PROT ALBUMIN 02/10/2022 08:08 SERUM 24 21 1.1 103 6.7 3.7 12/14/2017 08:51 SERUM 26 29 0.9 110 6.8 3.8 06/22/2017 11:38 SERUM 21 20 0.6 127 6.5 3.7 === PSA TREND No data available = Collection DT Spec TSH 02/10/2022 08:08 SERUM 2.13 == ANEMIA PANEL TREND Collection DT Spec HCT 02/10/2022 08:08 BLOOD 43.8 12/14/2017 08:52 BLOOD 45.5 06/22/2017 11:38 BLOOD 41.4 === PT INR TREND No data available === >> HEALTH MAINTENANCE PREVENTIVE MEDICINE GOALS Advance Directive Screen MH AD Sep 29 Suicide Screen March 29 Toxic Exposure Screening DUE NOW Homelessness/Food Insecurity Screen Feb 10 Follow Up Colonoscopy Dec 28 Depression Screening March 29 Falls & Incontinence Screen March 29 HIV Screening DUE NOW PTSD Screening Dec 23 Tobacco Use Screening March 29 Influenza Immunization DUE NOW Medication Reconciliation DUE NOW Alcohol Use Screen (AUDIT-C) March 29 COVID-19 Immunization DUE NOW Sexual Orientation DUE NOW RHS Screen DUE NOW PAVE Foot Check DUE NOW Eye Care At-Risk Screen DUE NOW (Optional) Whole Health Documentation DUE NOW ASSESSMENT/PLAN: 1. low back pain/lumbar neuritis 2. CAD 3. HTN 4. hi chol Plan 1. vet urged to begin exercise program that has low impact on lumbar area/he may opt for chiro in future 2. continue ASA and plavix 3. incr lisinopril/HCT to 2012.5 daily/ home monitor BP 4. f/u in 3 mos for BP check w/ RN 5. refill statin and ezetimibe 6. obtain [facility] labs 7. f/u w/ PCP in 6 mos LAB ORDERS FOR NEXT APPT. spent in patient care and education No barriers; Patient understands and agrees to current treatment plan. If pt has any questions, concerns, or changes in current health status he/she will call or come in to the [facility]. Medication Reconciliation: Outpatient: Has the patient been taking medications as documented in the EMLR? YES: The patient has been taking medications as documented in the EMLR. Essential Medication List for Review used to complete this medication reconciliation. INCLUDED IN THIS LIST: Alphabetical list of active outpatient prescriptions dispensed from this [place] (local) and dispensed from another [place] or [facility] facility (remote) as well as inpatient orders (local, pending and active), local clinic medications, locally documented non-VA medications, and local prescriptions that have or been discontinued in the past 90 days. - All changes in medications, including all non-VA/Herbal/OTC medications were entered into CPRS. - If there were any medications the patient should no longer take, they were discontinued. - The patient/caregiver was instructed to update this list, discard old lists, and take this list to the next appointment, whether with a VA or non-VA provider. /yaniv/ LAURIE SANCHEZ MD PHYSICIAN Signed: 03/24/2024 09:15 VASILIY SANCHEZ [facility]
--- OUTSIDE RECORDS SUMMARY | 2024-11-13 10:09 | XMS_ITS | Encounter Summary ---
Author Name [facility] [facility] [place] Address [address] [place] [address] Care Team Providers Care Battery Hand Name Role Phone LAURIE SANCHEZ Primary Care [...] Weiss's Name Patient's Relationship to Policy Weiss [facility] (WNR) MEDICARE ADVANTAGE [facility] (WNR) Nov 12, 2017 [id number] Eduar COMBS PATIENT [facility] SPECIAL CLASS [place] March 27, 2018 STACY CHURCHILL [id number] Eduar COMBS PATIENT Selected Encounter This section includes the information on record at [place] for the Encounter. Date/Time Encounter Type Encounter Description Reason Pro vider Source Feb 01, 2024 12:23 PM Outpatient Encounter COMMUNITY CARE CONSULT IHE [...] 20 appointments. The data comes from all [place] treatment facilities. Appointment Date/Time Appointment Type Appointme nt Facility Name Feb 04, 2024 09:30 AM AMBULATORY - MEDICINE [facility] [place] [facility] Feb 25, 2024 07:15 AM AMBULATORY - NONE [facility] [place] [facility] Mar 05, 2024 03:15 PM AMBULATORY - MEDICINE [facility] [place] [facility] March 24, 2024 08:30 AM AMBULATORY - MEDICINE [facility] [place] [facility] May 01, 2024 08:00 AM AMBULATORY - MEDICINE [facility] [place] [facility] May 12, 2024 07:00 AM AMBULATORY - MEDICINE [place] [facility] [place] [facility] Jun 26, 2024 09:30 AM AMBULATORY - MEDICINE [place] [facility] [place] [facility] Social History: Smoking Status (Most current) and Tobacco Use (All prior to encounter date) This section includes the most current, and the historical, smoking and tobacco- related health factors from the [place] facility where the Encounter took place. Current Smoking Status This section includes the most current smoking, or tobacco-related health factor, from the [place] facility where the Encounter took place. Date/Time Current Smoking Status Comment Facil ity March 29, 2023 08:30 AM VA-TOBACCO FORMER USER [place] [facility] [place] [facility] Tobacco Use History This section includes a history of the smoking, or tobacco-related health factors, that were collected on or before the date of the Encounter. The data comes from the [place] facility where the Encounter took place. Date/Time Smoking Status/Tobacco Use Comment F acility March 29, 2023 08:30 AM VA-TOBACCO QUIT 15 YRS OR MORE [facility] [place] [facility] Feb 10, 2022 08:30 AM VA-TOBACCO FORMER USER [facility] [place] [facility] Feb 10, 2022 08:30 AM VA-TOBACCO QUIT 15 YRS OR MORE [facility] [place] [facility] Jan 14, 2021 09:00 AM VA-TOBACCO FORMER USER [facility] [place] [facility] Jan 14, 2021 09:00 AM VA-TOBACCO QUIT 15 YRS OR MORE [facility] [place] [facility] Dec 23, 2018 09:29 AM VA-TOBACCO FORMER USER [facility] [place] [facility] Dec 23, 2018 09:29 AM VA-TOBACCO QUIT 15 YRS OR MORE [facility] [place] [facility] Dec 23, 2018 08:28 AM VA-TOBACCO FORMER USER [facility] [place] [facility] Dec 23, 2018 08:28 AM VA-TOBACCO QUIT 15 YRS OR MORE [facility] [place] [facility] Jun 22, 2017 09:22 AM LIFETIME NON-TOBACCO USER [facility] [place] [facility] Encounter Notes: All associated encounter notes This section contains the clinical notes associated to the Encounter. Date/Time Encounter Note(s) Provider Source Feb 03, 2024 05:14 PM ADDENDUM: LOCAL TITLE: Addendum STANDARD TITLE: ADDENDUM DATE OF NOTE: FEB 03, 2024@17:14:21 ENTRY DATE: FEB 03, 2024@17:14:22 AUTHOR: RENU HARRIS EXP COSIGNER: URGENCY: STATUS: COMPLETED Forwarding to PCP /es/ RENU HARRIS, MSN, RN, CNL PRIMARY CARE TEAM NURSE Signed: 02/03/2024 17:14 Receipt Acknowledged By: 02/04/2024 08:01 /yaniv/ LAURIE SANCHEZ MD PHYSICIAN === --- Original Document --- 02/01/24 ADMINISTRATIVE NOTE: [place]'s reports that he has an appointment with [facility] [address] [place] [address] [phone] [phone] TAX ID#[id number] NPI#[id number] APPT 03/05 at 3:15 pm w/ Dr. Klebre Rodriguez If deemed appropriate, please enter a continuation of care Consult for this [place]. /yaniv/ WALTER BURLESON Community Care RN Signed: 02/01/2024 12:28 Receipt Acknowledged By: 02/03/2024 17:14 /jovani HARRIS MSN, RN, CNL PRIMARY CARE TEAM NURSE 02/03/2024 18:00 /jovani Daly, associate professor of theatre Staff Nurse RENU HARRIS [facility] Feb 01, 2024 12:23 PM ADMINISTRATIVE NOTE: LOCAL TITLE: ADMINISTRATIVE NOTE STANDARD TITLE: ADMINISTRATIVE NOTE DATE OF NOTE: FEB 01, 2024@12:23 ENTRY DATE: FEB 01, 2024@12:23:49 AUTHOR: WALTER BURLESON EXP COSIGNER: URGENCY: STATUS: COMPLETED ADMINISTRATIVE NOTE Has ADDENDA 's reports that he has an appointment with [facility] [address] [place] [address] [phone] [phone] TAX ID#[id number] NPI#[id number] APPT 03/05 at 3:15 pm w/ Dr. Kleber Rodriguez If deemed appropriate, please enter a continuation of care Consult for this . /yaniv/ WALTER BURLESON Community Care RN Signed: 02/01/2024 12:28 Receipt Acknowledged By: 02/03/2024 17:14 /NICK Putnam, RN, CNL PRIMARY CARE TEAM NURSE 02/03/2024 18:00 /jovani Daly, associate professor of theatre Staff Nurse 02/03/2024 ADDENDUM STATUS: COMPLETED Forwarding to PCP /NICK Putnam, RN, CNL PRIMARY CARE TEAM NURSE Signed: 02/03/2024 17:14 Receipt Acknowledged By: * AWAITING SIGNATURE * LAURIE SANCHEZ BRENDAN SEAN [facility]
--- OUTSIDE RECORDS SUMMARY | 2024-11-13 10:10 | XMS_ITS ---
Author Name [facility] [place] [facility] [place] Organization [facility] [place] Address [address] [place] [address] Care Team Providers Care Conference Planning Manager Name Role Phone LAURIE SANCHEZ Primary Care [...] Weiss's Name Patient's Relationship to Policy Weiss [facility] (WNR) MEDICARE ADVANTAGE [facility] (WNR) Nov 12, 2017 [id number] [phone] Eduar COMBS PATIENT H[facility] SPECIAL CLASS HEXT [place] March 27, 2018 STACY CHURCHILL [id number] Eduar COMBS PATIENT Selected Encounter This section includes the information on record at [place] for the Encounter. Date/Time Encounter Type Encounter Description Reason Provider Source Jun 26, 2024 09:30 AM OFF/OP EST MARCH X REQ PHY/QHP PRIMARY CARE/MEDICINE ICD-10-CM I10 Essential (primary) hypertension BARB KEITH Encounter Template Text not used by [place] Assessments - Encounter Diagnoses This section includes the primary and secondary diagnoses documented for the Encounter. Date/Time Primary/Secondary Diagnosis Diagnosis Name Provider Source Jun 26, 2024 09:57 AM PRIMARY Essential (primary) hypertension BARB KEITH [facility] Plan of Treatment: Future Appointments (+ 6 months) and Future Tests (+/- 45 days) The Plan of Treatment section includes future care activities for the patient from all [place] treatmentfacilities. This section includes future appointments and future orders which are active, pending or scheduled. Future Appointments This section includes appointments that were scheduled to occur 6 months from the date of the Encounter, up to a maximum of 20 appointments. The data comes from all [place] treatment facilities. Appointment Date/Time Appointment Type Appointme nt Facility Name Sep 02, 2024 09:45 AM [facility] Vital Signs: All taken on the encounter date This section contains inpatient and outpatient Vital Signs collected on the date of the Encounter. Date/Time Temperature Pulse Blood Pressure Respiratory Rate SP02 Pain Height Weight Body Mass Index Source Jun 26, 2024 09:50 AM 128/70 [facility] Jun 26, 2024 09:40 AM 62 130/74 [facility] Social History: Smoking Status (Most current) and Tobacco Use (All prior to encounter date) This section includes the most current, and the historical, smoking and tobacco- related health factors from the [place] facility where the Encounter took place. Current Smoking Status This section includes the most current smoking, or tobacco-related health factor, from the [place] facility where the Encounter took place. Date/Time Current Smoking Status Comment Sarwat ity March 24, 2024 08:30 AM VA-TOBACCO [facility]ED [facility] Tobacco Use History This section includes a history of the smoking, or tobacco-related health factors, that were collected on or before the date of the Encounter. The data comes from the [place] facility where the Encounter took place. Date/Time Smoking Status/Tobacco Use Comment F acility March 29, 2023 08:30 AM VA-TOBACCO FORMER USER [place] [facility] [place] [facility] March 29, 2023 08:30 AM VA-TOBACCO QUIT 15 YRS OR MORE [place] [facility] [place] [facility] Feb 10, 2022 08:30 AM VA-TOBACCO FORMER USER [place] [facility] [place] [facility] Feb 10, 2022 08:30 AM VA-TOBACCO QUIT 15 YRS OR MORE [facility] [place] [facility] Jan 14, 2021 09:00 AM VA-TOBACCO FORMER USER [facility] [place] [facility] Jan 14, 2021 09:00 AM VA-TOBACCO QUIT 15 YRS OR MORE [facility] [place] [facility] Dec 23, 2018 09:29 AM VA-TOBACCO FORMER USER [facility] [place] [facility] Dec 23, 2018 09:29 AM VA-TOBACCO QUIT 15 YRS OR MORE [facility] [place] [facility] Dec 23, 2018 08:28 AM VA-TOBACCO FORMER USER [facility] [place] [facility] Dec 23, 2018 08:28 AM VA-TOBACCO QUIT 15 YRS OR MORE [place] [facility] [place] [facility] Jun 22, 2017 09:22 AM LIFETIME NON-TOBACCO USER [place] [facility] [place] [facility] Encounter Notes: All associated encounter notes This section contains the clinical notes associated to the Encounter. Date/Time Encounter Note(s) Provider Source Jun 26, 2024 09:50 AM [facility] NOTE: LOCAL TITLE: AMBULATORY/OUTPATIENT CARE NOTE STANDARD TITLE: PRIMARY CARE OUTPATIENT NOTE DATE OF NOTE: JUN 26, 2024@09:50 ENTRY DATE: JUN 26, 2024@09:50:50 AUTHOR: BARB KEITH COSIGNER: URGENCY: STATUS: COMPLETED F: Nursing Clinic/Blood pressure check D: presents to the Primary care clinic for a blood pressure check per PCP. Vet has history of hypertension. BLOOD PRESSURE READINGS -Initial 130/74 P-62 -Blood pressure reading after resting for 1-2 minutes: 128/70 SYMPTOMS REVIEW Patient reports: NONE Patient reports adherence to medication regimen. Checks blood pressure readings in the AM after taking morning medications (approximately 1 hour later). He does not drink coffee and has an occaisonal beer. reports no side effects from current medication. He does check his readings at home and brought in a list of readings: Highest readin/60 Pulse 57 Average of readings range around 120/60 Pulse 50-60 Education: Weight loss: you may reduce your blood pressure by about 1 mm Hg with each 2.2 pounds of weight loss Diet- rich in whole grains, fruits, vegetables and low-fat daily products, low- sodium, no added salt, eat fewer processed foods. By reducing sodium in your diet you can reduce your blood pressure by 5-6 mm Hg Physical activity- 30 minutes of exercise daily can lower your blood pressure by about 5 to 8 mm Hg Stress- chronic stress can contribute to high blood pressure Tobacco- cigarette smoking increases your blood pressure for many minutes after you finish. Quitting can reduce your risk for heart disease and improve overall health ETOH- 7 max weekly for women 14 max weekly for men. Drinking more than moderate amounts can raise your blood pressure by several points Caffeine- Can raise blood pressure up to 10 mm Hg if you rarely consume it. For others, who drink caffeine regularly, you have experience little to no effect on your blood pressure /yaniv/ Barb Keith RN Primary Care Staff Nurse Signed: 06/26/2024 09:57 Receipt Acknowledged By: 06/30/2024 20:08 /yaniv/ LAURIE SANCHEZ MD PHYSICIAN BARB KEITH [facility]
--- OUTSIDE RECORDS SUMMARY | 2024-11-13 10:10 | XMS_ITS | Encounter Summary ---
Author Name [facility] [place] Organization [place] Address [address] [place] [address] Care Team Providers Care Anesthesia Tech Name Role Phone LAURIE SANCHEZ Primary Care [...] Weiss's Name Patient's Relationship to Policy Weiss [facility] (WNR) MEDICARE ADVANTAGE [facility] (WNR) Nov 12, 2017 [id number] Eduar COMBS PATIENT [facility]FFIE [facility] SPECIAL CLASS [place]IE [place] March 27, 2018 STACY CHURCHILL [id number] Eduar COMBS PATIENT Selected Encounter This section includes the information on record at [place] for the Encounter. Date/Time Encounter Type Encounter Description Reason Provider Source Sep 02, 2024 09:45 AM CLEAN/INSPECT [facility]SE [facility] DENT DENTAL ICD-10-CM K03.6 Deposits [accretions] on teeth ZACK TAFOYA IHE Encounter Template Text not used by [place] Assessments - Encounter Diagnoses This section includes the primary and secondary diagnoses documented for the Encounter. Date/Time Primary/Secondary Diagnosis Diagnosis Name Provider Source Sep 02, 2024 10:28 AM PRIMARY Deposits [accretions] on teeth ZACK TAFOYA HDA [facility] Lab Results: +/- 30 days of the encounter This section includes the Chemistry and Hematology Lab Results on record with [place] for the patient. Radiology Reports and Pathology Reports are provided separately, in subsequent sections. Lab Results This section contains the Chemistry/Hematology Results that were resulted 30 days before or 30 daysafter the date of the Encounter. Date/Time Source Result Type Result - Unit Interpretation Reference Range Comment Sep 02, 2024 10:25 AM [facility] MICROALBUMIN CREATININE RATIO PANEL Specimen Type: URINE No comment entered. Ordering Provider: Zach SANCHEZ Report Released Date/Time: Aug 28, 2024 09:07 AM Reporting Lab: [address] [address] Performing Lab: [address] [address] MICROALBUMIN/C REATININE RATIO 13.4 mg/g 0-29.9 MICROALBUMIN,Q UANTITATIVE 0.7 mg/dL RR UNAVAIL CREATININE URINE 52.17 mg/dL Sep 02, 2024 10:25 AM [facility] BASIC METABOLIC PANEL (non-fasting) Specimen Type: SERUM No comment entered. Ordering Provider: Zach SANCHEZ Report Released Date/Time: Aug 28, 2024 09:07 AM Reporting Lab: [address] [address] Performing Lab: [address] [address] UREA NITROGEN 33 mg/dL H 7-25 GLUCOSE 97 mg/dL 65-100 SODIUM 136 mmol/L 135-145 POTASSIUM 4.7 mmol/L 3.5-5.0 CHLORIDE 106 mmol/L 100-110 CO2 24 meq/L 20-30 CREATININE, Serum 1.40 mg/dL 0.50-1.40 eGFR(CKD-EPI 2020) 50 mL/min L >60 Sep 02, 2024 10:25 AM [facility] LIPID PANEL, NON FASTING Specimen Type: SERUM No comment entered. Ordering Provider: Zach SANCHEZ Report Released Date/Time: Aug 28, 2024 09:07 AM Reporting Lab: [facility] [address] [facility] [address] Performing Lab: [address] [address] CHOLESTEROL 128 mg/dL TRIGLYCERIDE 69 mg/dL 0-150 LDL calculated 60 mg/dL 0-129 CHOL/HDL 2.4 HDL CHOLESTEROL 54 mg/dL 40-60 Sep 02, 2024 10:25 AM [facility] TSH Specimen Type: SERUM No comment entered. Ordering Provider: Zach SANCHEZ Report Released Date/Time: Aug 28, 2024 09:07 AM Reporting Lab: [address] [address] Performing Lab: [address] [address] TSH 1.43 u[IU]/mL 0.35-5.00 Sep 02, 2024 10:25 AM [facility] HEMOGLOBIN A1C PANEL Specimen Type: BLOOD Comment: Values obtained from A1C measurements can vary. For atypical A1C assays, a reported value of 7.0 could actually be between 6.72 and 7.28 if measured by a reference method. A reported value of 9.0 could actually be between 8.73 and 9.27. Ref: http://www.ngs p.org/CAPdata. asp Ordering Provider: Zach SANCHEZ Report Released Date/Time: Aug 28, 2024 09:07 AM Reporting Lab: [address] [address] Performing Lab: [address] [address] HEMOGLOBIN A1C 5.1 4.0-5.6 Sep 02, 2024 10:25 AM [facility] CALCIUM Specimen Type: SERUM No comment entered. Ordering Provider: Zach SANCHEZ Report Released Date/Time: Aug 28, 2024 09:07 AM Reporting Lab: [facility] [address] [facility] [address] Performing Lab: [facility] [address] [address] CALCIUM 10.0 mg/dL 8.5-10.2 Sep 02, 2024 10:25 AM [facility] CBC AND DIFF (AUTO) Specimen Type: BLOOD No comment entered. Ordering Provider: Zach SANCHEZ Report Released Date/Time: Aug 28, 2024 09:07 AM Reporting Lab: [facility] [address] [facility] [address] Performing Lab: [address] [address] WBC 8.50 10*3/uL 4.50-11.00 RBC 3.92 10*6/uL L 4.23-5.66 HGB 12.9 g/dL 12.8-17 HCT 38.0 L 39.2-50.4 MCV 96.9 fL 82-99 MCHC 33.9 g/dL 30.8-35.1 PLT 259 10*3/uL 140-360 RDW-CV 12.2 12.0-16.0 MONO, ABS 0.76 10*3/uL 0.30-1.10 MCH 32.9 pg H 26.2-32.6 NEUT % 72.2 43.7-75.8 LYMPH % 14.6 14.0-42.3 MONO % 8.9 5.1-13.7 EOS % 3.5 0.4-6.8 BASO % 0.6 0.1-2.0 NEUT, ABS 6.13 10*3/uL 2.20-7.60 LYMPH, ABS 1.24 10*3/uL 1.00-3.20 EOS, ABS 0.30 10*3/uL 0.03-0.44 BASO, ABS 0.05 10*3/uL 0.01-0.13 IMMATURE GRAN % 0.2 0.0-0.7 IMMATURE GRAN, ABS 0.02 10*3/uL 0.00-0.06 NRBC % 0.0 0.0-0.0 NRBC, ABS 0.00 10*3/uL 0.00-0.00 Social History: Smoking Status (Most current) and Tobacco Use (All prior to encounter date) This section includes the most current, and the historical, smoking and tobacco- related health factors from the [place] facility where the Encounter took place. Current Smoking Status This section includes the most current smoking, or tobacco-related health factor, from the [place] facility where the Encounter took place. Date/Time Current Smoking Status Comment Facil ity March 24, 2024 08:30 AM VA-TOBACCO NEVER USED [place] [facility] [place] [facility] Tobacco Use History This section includes a history of the smoking, or tobacco-related health factors, that were collected on or before the date of the Encounter. The data comes from the [place] facility where the Encounter took place. Date/Time Smoking Status/Tobacco Use Comment F acility March 29, 2023 08:30 AM VA-TOBACCO FORMER USER [place] [facility] [place] [facility] March 29, 2023 08:30 AM VA-TOBACCO QUIT 15 YRS OR MORE [facility] [place] [facility] Feb 10, 2022 08:30 AM VA-TOBACCO FORMER USER [facility] [place] [facility] Feb 10, 2022 08:30 AM VA-TOBACCO QUIT 15 YRS OR MORE [facility] [place] [facility] Jan 14, 2021 09:00 AM VA-TOBACCO FORMER USER [facility] [place] [facility] Jan 14, 2021 09:00 AM VA-TOBACCO QUIT 15 YRS OR MORE [facility] [place] [facility] Dec 23, 2018 09:29 AM VA-TOBACCO FORMER USER [facility] [place] [facility] Dec 23, 2018 09:29 AM VA-TOBACCO QUIT 15 YRS OR MORE [facility] [place] [facility] Dec 23, 2018 08:28 AM VA-TOBACCO FORMER USER [facility] [place] [facility] Dec 23, 2018 08:28 AM VA-TOBACCO QUIT 15 YRS OR MORE [facility] [place] [facility] Jun 22, 2017 09:22 AM LIFETIME NON-TOBACCO USER [facility] [place] [facility] Encounter Notes: All associated encounter notes This section contains the clinical notes associated to the Encounter. Date/Time Encounter Note(s) Provider Source Sep 02, 2024 09:47 AM DENTISTRY NOTE: LOCAL TITLE: DENTAL NOTE STANDARD TITLE: DENTISTRY NOTE DATE OF NOTE: SEP 02, 2024@09:47 ENTRY DATE: SEP 02, 2024@10:28:44 AUTHOR: FARNAZ TAFOYA EXP COSIGNER: URGENCY: STATUS: COMPLETED Patient Name: IFTIKHAR COMBS, : 1945, Age: 79 Visit: S: Sep 02, 2024@09:45 [facility] DENTAL RDH 2 AM. Primary PCE Diagnosis: K03.6 (Deposits [accretions] [...] DENTAL TREATMENT PROVIDED: PROPHYLAXIS: hand scaling, piezo, filipino mn and mx partial cleaned TOPICAL FLUORIDE APPLICATION - [place] pre procedural rinse 30 seconds ORAL HYGIENE INSTRUCTIONS GIVEN TO PATIENT: review cervical brushing technique recomended 2 times a day, review flossing technique 2 times a day. Explain importance of daily plaque removal. Discuss possible cause of recession. Review partial care: Take out and rinse partial after eating. Clean your mouth after taking out your partial. [place] your partial at least daily. Soak partial overnight. Rinse partial thoroughly before putting them back in your mouth, especially if using a partial-soaking solution. no premed knee replaced around 2013 DISPOSITION: 6 MONTHS RECARE Oral Health Assessment [...] nv: 6 mo recall 4 bwx ravinder /yaniv/ FARNAZ TAFOYA RDH [facility], DENTAL SERVICE Signed: 09/02/2024 10:28 FARNAZ TAFOYA [facility] [place] [facility]
--- OUTSIDE RECORDS SUMMARY | 2024-11-13 10:10 | XMS_ITS | Encounter Summary ---
Author Name [facility] [facility] [place] Address [address] [place] [address] Care Team Providers Care Ui Designer Name Role Phone LAURIE SANCHEZ Primary Care [...] Weiss's Name Patient's Relationship to Policy Weiss [facility] (WNR) MEDICARE ADVANTAGE [facility] (WNR) Nov 12, 2017 [id number] Eduar COMBS PATIENT [facility] CLASS FOL[place]TT [place] March 27, 2018 STACY CHURCHILL [id number] Eduar COMBS PATIENT Selected Encounter This section includes the information on record at [place] for the Encounter. Date/Time Encounter Type Encounter Description Reason Pro vider Source Sep 01, 2024 09:43 AM Outpatient Encounter DENTAL IHE Encounter Template Text not used by [place] Plan of Treatment: Future Appointments (+ 6 [...] 02, 2024 09:45 AM AMBULATORY - NONE [facility] Lab Results: +/- 30 days of the encounter This section includes the Chemistry and Hematology Lab Results on record with [place] for the patient. Radiology Reports and Pathology Reports are provided separately, in subsequent sections. Lab Results This section contains the Chemistry/Hematology Results that were resulted 30 days before or 30 daysafter the date of the Encounter. Date/Time Source Result Type Result - Unit Interpretation Reference Range Comment Sep 02, 2024 10:25 AM [facility] MICROALBUMIN CREATININE RATIO PANEL Specimen Type: URINE No comment entered. Ordering Provider: Zach SANCHEZ Report Released Date/Time: Aug 28, 2024 09:07 AM Reporting Lab: [facility] [address] [facility] [address] Performing Lab: [facility] [address] [facility] [address] MICROALBUMIN/C REATININE RATIO 13.4 mg/g 0-29.9 MICROALBUMIN,Q UANTITATIVE 0.7 mg/dL RR UNAVAIL CREATININE URINE 52.17 mg/dL Sep 02, 2024 10:25 AM [facility] BASIC METABOLIC PANEL (non-fasting) Specimen Type: SERUM No comment entered. Ordering Provider: Zach SANCHEZ Report Released Date/Time: Aug 28, 2024 09:07 AM Reporting Lab: [facility] [address] [facility] [address] Performing Lab: [facility] [address] [facility] [address] UREA NITROGEN 33 mg/dL H 7-25 GLUCOSE 97 mg/dL 65-100 SODIUM 136 mmol/L 135-145 POTASSIUM 4.7 mmol/L 3.5-5.0 CHLORIDE 106 mmol/L 100-110 CO2 24 meq/L 20-30 CREATININE, Serum 1.40 mg/dL 0.50-1.40 eGFR(CKD-EPI 2020) 50 mL/min L >60 Sep 02, 2024 10:25 AM [facility] LIPID PANEL, NON FASTING Specimen Type: SERUM No comment entered. Ordering Provider: Zach SANCHEZ Report Released Date/Time: Aug 28, 2024 09:07 AM Reporting Lab: [facility] [address] [facility] [address] Performing Lab: [facility] [address] [facility] [address] CHOLESTEROL 128 mg/dL TRIGLYCERIDE 69 mg/dL 0-150 LDL calculated 60 mg/dL 0-129 CHOL/HDL 2.4 HDL CHOLESTEROL 54 mg/dL 40-60 Sep 02, 2024 10:25 AM [facility] TSH Specimen Type: SERUM No comment entered. Ordering Provider: Zach SANCHEZ Report Released Date/Time: Aug 28, 2024 09:07 AM Reporting Lab: [facility] [address] [facility] [address] Performing Lab: [facility] [address] [facility] [address] TSH 1.43 u[IU]/mL 0.35-5.00 Sep 02, 2024 10:25 AM [facility] HEMOGLOBIN A1C PANEL Specimen Type: BLOOD Comment: [...] Aug 28, 2024 09:07 AM Reporting Lab: [facility] [address] [facility] [address] Performing Lab: [address] [address] HEMOGLOBIN A1C 5.1 4.0-5.6 Sep 02, 2024 10:25 AM [facility] CALCIUM Specimen Type: SERUM No comment entered. Ordering Provider: Zach SANCHEZ Report Released Date/Time: Aug 28, 2024 09:07 AM Reporting Lab: [facility] [address] [facility] [address] Performing Lab: [address] [address] CALCIUM 10.0 mg/dL 8.5-10.2 Sep 02, 2024 10:25 AM [facility] CBC AND DIFF (AUTO) Specimen Type: BLOOD No comment entered. Ordering Provider: Zach SANCHEZ Report Released Date/Time: Aug 28, 2024 09:07 AM Reporting Lab: [address] [address] Performing Lab: [address] [address] WBC 8.50 10*3/uL 4.50-11.00 RBC 3.92 10*6/uL [...] VA-TOBACCO NEVER USED [place] [facility] [place] [facility] Tobacco Use History This section includes a history of the smoking, or tobacco-related health factors, that were collected on or before the date of the Encounter. The data comes from the [place] facility where the Encounter took place. Date/Time Smoking Status/Tobacco Use Comment F acility March 29, 2023 08:30 AM VA-TOBACCO FORMER USER [facility] [place] [facility] March 29, 2023 08:30 AM VA-TOBACCO QUIT 15 YRS OR MORE [facility] [place] [facility] Feb 10, 2022 08:30 AM VA-TOBACCO FORMER USER [facility] [place] [facility] Feb 10, 2022 08:30 AM VA-TOBACCO QUIT 15 YRS OR MORE [facility] [place] [facility] Jan 14, 2021 09:00 AM VA-TOBACCO FORMER USER [facility] [place] [facility] Jan 14, 2021 09:00 AM VA-TOBACCO QUIT 15 YRS OR MORE [facility] [place] [facility] Dec 23, 2018 09:29 AM VA-TOBACCO FORMER USER [facility] [place] [facility] Dec 23, 2018 09:29 AM VA-TOBACCO QUIT 15 YRS OR MORE [facility] [place] [facility] Dec 23, 2018 08:28 AM VA-TOBACCO FORMER USER [facility] [place] [facility] Dec 23, 2018 08:28 AM VA-TOBACCO QUIT 15 YRS OR MORE [place] [facility] [place] [facility] Jun 22, 2017 09:22 AM LIFETIME NON-TOBACCO USER [place] [facility] [place] [facility] Encounter Notes: All associated encounter notes This section contains the clinical notes associated to the Encounter. Date/Time Encounter Note(s) Provider Source Sep 01, 2024 09:43 AM DENTISTRY TELEPHON E ENCOUNTER NOTE: LOCAL TITLE: TELEPHONE NOTE/DENTAL STANDARD TITLE: DENTISTRY TELEPHONE ENCOUNTER NOTE DATE OF NOTE: SEP 01, 2024@09:43 ENTRY DATE: SEP 01, 2024@09:43:53 AUTHOR: LINDA BALDERRAMA EXP COSIGNER: URGENCY: STATUS: COMPLETED Called pt and was unable to LM to confirm dental appointment on 09/02/2024 at 9:45 am. mailbox full. /yaniv/ LINDA BALDERRAMA ADVANCED OUTSIDE MACHINIST APPRENTICE Signed: 09/01/2024 09:45 [facility]ERR[facility]
--- OUTSIDE RECORDS SUMMARY | 2024-11-13 10:10 | XMS_ITS ---
Author Name [facility] [place] Organization [place] Address [address] [place] [address] Care Team Providers Care Certified Adapted Physical Educator Name Role Phone LAURIE SANCHEZ Primary Care [...] Weiss's Name Patient's Relationship to Policy Weiss [facility] (WNR) MEDICARE ADVANTAGE [facility] (WNR) Nov 12, 2017 [id number] [phone] Eduar COMBS PATIENT [facility] [facility] SPECIAL CLASS [place] March 27, 2018 STACY CHURCHILL [id number] RENAEEduar GALVAN PATIENT Selected Encounter This section includes the information on record at [place] for the Encounter. Date/Time Encounter Type Encounter Description Reason Pro vider Source Aug 27, 2024 05:30 PM Outpatient Encounter ADMIN PAT ACTIVTIES (MASNONCT) IHE Encounter Template Text not used by [place] Plan of Treatment: Future Appointments (+ 6 [...] 02, 2024 09:45 AM AMBULATORY - NONE [facility] Lab Results: +/- 30 days of the encounter This section includes the Chemistry and Hematology Lab Results on record with [place] for the patient. Radiology Reports and Pathology Reports are provided separately, in subsequent sections. Lab Results This section contains the Chemistry/Hematology Results that were resulted 30 days before or 30 daysafter the date of the Encounter. Date/Time Source Result Type Result - Unit Interpretation Reference Range Comment Sep 02, 2024 10:25 AM [facility] MICROALBUMIN CREATININE RATIO PANEL Specimen Type: URINE No comment entered. Ordering Provider: Zach SANCHEZ Report Released Date/Time: Aug 28, 2024 09:07 AM Reporting Lab: [facility] [address] [facility] [address] Performing Lab: [facility] [address] [facility] [facility] [address] MICROALBUMIN/C REATININE RATIO 13.4 mg/g 0-29.9 MICROALBUMIN,Q UANTITATIVE 0.7 mg/dL RR UNAVAIL CREATININE URINE 52.17 mg/dL Sep 02, 2024 10:25 AM [facility] BASIC METABOLIC PANEL (non-fasting) Specimen Type: SERUM No comment entered. Ordering Provider: Zach SANCHEZ Report Released Date/Time: Aug 28, 2024 09:07 AM Reporting Lab: [facility] [address] [facility] [address] Performing Lab: [address] [address] UREA NITROGEN 33 mg/dL H 7-25 GLUCOSE 97 mg/dL 65-100 SODIUM 136 mmol/L 135-145 POTASSIUM 4.7 mmol/L 3.5-5.0 CHLORIDE 106 mmol/L 100-110 CO2 24 meq/L 20-30 CREATININE, Serum 1.40 mg/dL 0.50-1.40 eGFR(CKD-EPI 2020) 50 mL/min L >60 Sep 02, 2024 10:25 AM [facility] LIPID PANEL, NON FASTING Specimen Type: SERUM No comment entered. Ordering Provider: Zach SANCHEZ Report Released Date/Time: Aug 28, 2024 09:07 AM Reporting Lab: [facility] [address] [facility] [address] Performing Lab: [facility] [address] [facility] [facility] [address] CHOLESTEROL 128 mg/dL TRIGLYCERIDE 69 mg/dL 0-150 LDL calculated 60 mg/dL 0-129 CHOL/HDL 2.4 HDL CHOLESTEROL 54 mg/dL 40-60 Sep 02, 2024 10:25 AM [facility] TSH Specimen Type: SERUM No comment entered. Ordering Provider: Zach SANCHEZ Report Released Date/Time: Aug 28, 2024 09:07 AM Reporting Lab: [facility] [address] [facility] [address] Performing Lab: [facility] [address] [facility] [facility] [address] TSH 1.43 u[IU]/mL 0.35-5.00 Sep 02, 2024 10:25 AM [facility] HEMOGLOBIN A1C PANEL Specimen Type: [...] Aug 28, 2024 09:07 AM Reporting Lab: [facility] [address] [facility] [address] Performing Lab: [address] [address] HEMOGLOBIN A1C 5.1 4.0-5.6 Sep 02, 2024 10:25 AM [facility] CBC AND DIFF (AUTO) Specimen Type: BLOOD No comment entered. Ordering Provider: Zach SANCHEZ Report Released Date/Time: Aug 28, 2024 09:07 AM Reporting Lab: [facility] [address] [facility] [address] Performing Lab: [facility] [address] [facility] [address] WBC 8.50 10*3/uL 4.50-11.00 RBC 3.92 10*6/uL [...] 0.0 0.0-0.0 NRBC, ABS 0.00 10*3/uL 0.00-0.00 Sep 02, 2024 10:25 AM [facility] CALCIUM Specimen Type: SERUM No comment entered. Ordering Provider: Zach SANCHEZ Report Released Date/Time: Aug 28, 2024 09:07 AM Reporting Lab: [facility] [place] [facility] [address] [facility] [address] Performing Lab: [facility] [place] [facility] [address] [facility] [facility] [address] CALCIUM 10.0 mg/dL 8.5-10.2 Social History: Smoking Status (Most current) and [...] 24, 2024 08:30 AM VA-TOBACCO NEVER USED [place] [facility] [place] [facility] Tobacco Use History This section includes a history of the smoking, or tobacco-related health factors, that were collected on or before the date of the Encounter. The data comes from the [place] facility where the Encounter took place. Date/Time Smoking Status/Tobacco Use Comment F acility March 29, 2023 08:30 AM VA-TOBACCO FORMER USER [facility] [place] [facility] March 29, 2023 08:30 AM VA-TOBACCO QUIT 15 YRS OR MORE [facility] [place] [facility] Feb 10, 2022 08:30 AM VA-TOBACCO FORMER USER [facility] [place] [facility] Feb 10, 2022 08:30 AM VA-TOBACCO QUIT 15 YRS OR MORE [facility] [place] [facility] Jan 14, 2021 09:00 AM VA-TOBACCO FORMER USER [facility] [place] [facility] Jan 14, 2021 09:00 AM VA-TOBACCO QUIT 15 YRS OR MORE [facility] [place] [facility] Dec 23, 2018 09:29 AM VA-TOBACCO FORMER USER [facility] [place] [facility] Dec 23, 2018 09:29 AM VA-TOBACCO QUIT 15 YRS OR MORE [facility] [place] [place] [facility] Dec 23, 2018 08:28 AM VA-TOBACCO FORMER USER [facility] [place] [facility] Dec 23, 2018 08:28 AM [facility]BACCO [facility] Jun 22, 2017 09:22 AM LIFETIME NON[facility]BACCO [facility] Encounter Notes: All associated encounter notes This section contains the clinical notes associated to the Encounter. Date/Time Encounter Note(s) Provider Source Aug 28, 2024 09:05 AM ADDENDUM: LOCAL TITLE: Addendum STANDARD TITLE: ADDENDUM DATE OF NOTE: AUG 28, 2024@09:05:25 ENTRY DATE: AUG 28, 2024@09:05:26 AUTHOR: VASILIY SANCHEZ EXP COSIGNER: URGENCY: STATUS: COMPLETED naproxen med renewed for 90 days. plz call or message vet that we need to update labs to eval kidney fxn in this 79 yo male to insure safety of using nsaid PRN for pain. labs can be done at [facility] and when labs done vet can message me to put refills on naproxen if appropriate based on labs. thank you /yaniv/ LAURIE SANCHEZ MD PHYSICIAN Signed: 08/28/2024 09:07 Receipt Acknowledged By: 09/02/2024 12:53 /es/ RENU HARRIS, MSN, RN, CNL PRIMARY CARE TEAM NURSE 09/02/2024 12:58 /yaniv/ ZACHARIAH BURKETT REGISTERED NURSE for BARB CALLES ========= --- Original Document --- 08/27/24 V1 PHARMACY CUSTOMER CARE MEDICATION RENEWAL: Date: Aug Division: [place] Pt referred by Pharmacy Call Center for medication renewal: Non-controlled/maintena nce medication Medications requested: [id number] NAPROXEN 500MG TAB Defer to primary care provider To be mailed . Please review and renew if appropriate. *This note was generated by [facility]/[place] Pharmacy Customer Care. If you have any questions or need assistance, do not contact this author. Please refer all questions to your local, on-site pharmacy departments. /yaniv/ BREEZY PERSON CPhT Senior Php Developer, MS/Pharmacy Customer Care Signed: 08/27/2024 17:31 Receipt Acknowledged By: 08/28/2024 09:02 /jovani SANCHEZ MD PHYSICIAN 08/28/2024 09:10 /yaniv/ RENU HARRIS, MSN, RN, CNL PRIMARY CARE TEAM NURSE 09/01/2024 ADDENDUM STATUS: COMPLETED Vet called and marketing writer spoke with . Vet will do lab work tomorrow while here onc [facility] for dental appt. /yaniv/ Barb Keith RN Primary Care Staff Nurse Signed: 09/01/2024 11:22 VASILIY SANCHEZ [place] [facility] [place] [facility] Aug 27, 2024 05:30 PM PHARMACY NOTE: LOCAL TITLE: V1 PHARMACY CUSTOMER CARE MEDICATION RENEWAL STANDARD TITLE: PHARMACY NOTE DATE OF NOTE: AUG 27, 2024@17:30 ENTRY DATE: AUG 27, 2024@17:30:45 AUTHOR: BREEZY PERSON EXP COSIGNER: URGENCY: STATUS: COMPLETED V1 PHARMACY CUSTOMER CARE MEDICATION RENEWAL Has ADDENDA Date: Aug Division: [facility] referred by Pharmacy Call Center for medication renewal: Non-controlled/maintena nce medication Medications requested: [id number] NAPROXEN 500MG TAB Defer to primary care provider To be mailed . Please review and renew if appropriate. *This note was generated by [facility] Pharmacy Customer Care. If you have any questions or need assistance, do not contact this author. Please refer all questions to your local, on-site pharmacy departments. /jovani PERSON CPhT Senior Php Developer, MS/Pharmacy Customer Care Signed: 08/27/2024 17:31 Receipt Acknowledged By: 08/28/2024 09:02 /jovani SANCHEZ MD PHYSICIAN 08/28/2024 09:10 /yaniv/ RENU HARRIS, MSN, RN, CNL PRIMARY CARE TEAM NURSE 08/28/2024 ADDENDUM STATUS: COMPLETED naproxen med renewed for 90 days. plz call or message vet that we need to update labs to eval kidney fxn in this 79 yo male to insure safety of using nsaid PRN for pain. labs can be done at [facility] and when labs done vet can message me to put refills on naproxen if appropriate based on labs. thank you /yaniv/ LAURIE SANCHEZ MD PHYSICIAN Signed: 08/28/2024 09:07 Receipt Acknowledged By: * AWAITING SIGNATURE * RENU HARRIS * AWAITING SIGNATURE * BARB KEITH 09/01/2024 ADDENDUM STATUS: COMPLETED Vet called and marketing writer spoke with . Vet will do lab work tomorrow while here onc [facility] for dental appt. /yaniv/ Barb Keith RN Primary Care Staff Nurse Signed: 09/01/2024 11:22 BREEZY PERSON [place] [facility]
--- OUTSIDE RECORDS SUMMARY | 2024-11-13 10:10 | XMS_ITS | Encounter Summary ---
Author Name [facility] [place] Organization [place] Address [address] [place] [address] Care Team Providers Care Health Information Clerk Name Role Phone LAURIE SANCHEZ Primary Care [...] Name Patient's Relationship to Policy Weiss [facility] (WNR) MEDICARE ADVANTAGE [facility] (WNR) Nov 12, 2017 [id number] Eduar COMBS PATIENT IBERIA [facility] SPECIAL CLASS [place]IA [place] March 27, 2018 STACY CHURCHILL [id number] Eduar COMBS PATIENT Selected Encounter This section includes the information on record at [place] for the Encounter. Date/Time Encounter Type Encounter Description Reason Pro vider Source May 01, 2024 12:00 AM Outpatient Encounter COMMUNITY CARE CONSULT IHE [...] 20 appointments. The data comes from all [place] treatment facilities. Appointment Date/Time Appointment Type Appointme nt Facility Name May 12, 2024 07:00 AM AMBULATORY - MEDICINE [place] [facility] [place] [facility] Jun 26, 2024 09:30 AM AMBULATORY - MEDICINE [place] [facility] [place] [facility] Sep 02, 2024 09:45 AM AMBULATORY - NONE [place] [facility] [place] [facility] Social History: Smoking Status (Most current) and Tobacco Use (All prior to encounter date) This section includes the most current, and the historical, smoking and tobacco- related health factors from the [place] facility where the Encounter took place. Current Smoking Status This section includes the most current smoking, or tobacco-related health factor, from the [place] facility where the Encounter took place. Date/Time Current Smoking Status Comment Facil ity March 24, 2024 08:30 AM VA-TOBACCO [facility]ED [place] [facility] Tobacco Use History This section includes a history of the smoking, or tobacco-related health factors, that were collected on or before the date of the Encounter. The data comes from the [place] facility where the Encounter took place. Date/Time Smoking Status/Tobacco Use Comment F acility March 29, 2023 08:30 AM VA-TOBACCO FORMER USER [facility] [facility] March 29, 2023 08:30 AM VA-TOBACCO QUIT 15 YRS OR MORE [facility] [facility] Feb 10, 2022 08:30 AM VA-TOBACCO FORMER USER [place] [facility] [facility] Feb 10, 2022 08:30 AM VA-TOBACCO QUIT 15 YRS OR MORE [facility] [place] [place] [facility] Jan 14, 2021 09:00 AM VA-TOBACCO FORMER USER [facility] [place] [facility] Jan 14, 2021 09:00 AM VA-TOBACCO QUIT 15 YRS OR MORE [facility] [place] [place] [facility] Dec 23, 2018 09:29 AM VA-TOBACCO FORMER USER [facility] [facility] Dec 23, 2018 09:29 AM VA-TOBACCO QUIT 15 YRS OR MORE [facility] [place] [facility] Dec 23, 2018 08:28 AM VA-TOBACCO FORMER USER [place] [facility] [place] [facility] Dec 23, 2018 08:28 AM VA-TOBACCO QUIT 15 YRS OR MORE [place] [facility] [place] [facility] Jun 22, 2017 09:22 AM LIFETIME [facility]-TOBACCO [facility] Encounter Notes: All associated encounter notes This section contains the clinical notes associated to the Encounter. Date/Time Encounter Note(s) Provider Source May 01, 2024 12:00 AM NONVA CONSULT: LOCAL TITLE: COMMUNITY CARE-CONSULT RESULT NOTE STANDARD TITLE: NONVA CONSULT DATE OF NOTE: MAY 01, 2024 ENTRY DATE: JUN 02, 2024@08:25:04 AUTHOR: LEE KINGSLEY EXP COSIGNER: URGENCY: STATUS: COMPLETED VistA Imaging - Scanned Document SCANNED DOCUMENT SIGNATURE NOT REQUIRED Electronically Filed: 06/02/2024 by: [facility]
--- OUTSIDE RECORDS SUMMARY | 2024-11-13 10:10 | XMS_ITS | Encounter Summary ---
Author Name [facility] [place] [facility] [place] Address [address] [place] [address] Care Team Providers Care Executive Vice President Business Development Name Role Phone LAURIE SANCHEZ Primary Care [...] Weiss's Name Patient's Relationship to Policy Weiss [facility] (WNR) MEDICARE ADVANTAGE [facility] (WNR) Nov 12, 2017 [id number] [phone] Eduar COMBS PATIENT [place] [facility] SPECIAL [facility] [place] March 27, 2018 STACY CHURCHILL [id number] Eduar COMBS PATIENT Selected Encounter This section includes the information on record at [place] for the Encounter. Date/Time Encounter Type Encounter Description Reason Pro vider Source Feb 07, 2024 12:00 AM Outpatient Encounter COMMUNITY CARE [...] 20 appointments. The data comes from all [place] treatment facilities. Appointment Date/Time Appointment Type Appointme nt Facility Name Feb 25, 2024 07:15 AM AMBULATORY - NONE [facility] [place] [facility] Mar 05, 2024 03:15 PM AMBULATORY - MEDICINE [facility] [place] [facility] March 24, 2024 08:30 AM AMBULATORY - MEDICINE [facility] [place] [facility] May 01, 2024 08:00 AM AMBULATORY - MEDICINE [facility] [place] [facility] May 12, 2024 07:00 AM AMBULATORY - MEDICINE [facility] [place] [facility] Jun 26, 2024 09:30 AM AMBULATORY - MEDICINE [place] [facility] [place] [facility] Social History: Smoking Status (Most current) and Tobacco Use (All prior to encounter date) This section includes the most current, and the historical, smoking and tobacco- related health factors from the [place] facility where the Encounter took place. Current Smoking Status This section includes the most current smoking, or tobacco-related health factor, from the [place] facility where the Encounter took place. Date/Time Current Smoking Status Comment Facil ity March 29, 2023 08:30 AM VA-TOBACCO FORMER USER [place] [facility] [place] [facility] Tobacco Use History This section includes a history of the smoking, or tobacco-related health factors, that were collected on or before the date of the Encounter. The data comes from the [place] facility where the Encounter took place. Date/Time Smoking Status/Tobacco Use Comment F acility March 29, 2023 08:30 AM VA-TOBACCO QUIT 15 YRS OR MORE [facility] [place] [facility] Feb 10, 2022 08:30 AM VA-TOBACCO FORMER USER [facility] [place] [facility] Feb 10, 2022 08:30 AM VA-TOBACCO QUIT 15 YRS OR MORE [facility] [place] [facility] Jan 14, 2021 09:00 AM VA-TOBACCO FORMER USER [facility] [place] [facility] Jan 14, 2021 09:00 AM VA-TOBACCO QUIT 15 YRS OR MORE [facility] [place] [facility] Dec 23, 2018 09:29 AM VA-TOBACCO FORMER USER [place] [facility] [place] [facility] Dec 23, 2018 09:29 AM VA-TOBACCO QUIT 15 YRS OR MORE [facility] [place] [facility] Dec 23, 2018 08:28 AM VA-TOBACCO FORMER USER [facility] [place] [facility] Dec 23, 2018 08:28 AM VA-TOBACCO QUIT 15 YRS OR MORE [facility] [place] [facility] Jun 22, 2017 09:22 AM LIFETIME NON-TOBACCO USER [place] [facility] [place] [facility] Encounter Notes: All associated encounter notes This section contains the clinical notes associated to the Encounter. Date/Time Encounter Note(s) Provider Source Feb 07, 2024 12:00 AM NONVA CONSULT: LOCAL TITLE: COMMUNITY CARE-CONSULT RESULT NOTE STANDARD TITLE: NONVA CONSULT DATE OF NOTE: FEB 07, 2024 ENTRY DATE: JUN 30, 2024@16:20:51 AUTHOR: RAHUL PEREZ EXP COSIGNER: URGENCY: STATUS: COMPLETED VistA Imaging - Scanned Document SCANNED DOCUMENT SIGNATURE NOT REQUIRED Electronically Filed: 06/30/2024 by: RAHUL PEREZ LICENSED PRACTICAL NURSE RAHUL PEREZ [facility]
--- OUTSIDE RECORDS SUMMARY | 2024-11-13 10:10 | XMS_ITS | Encounter Summary ---
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 Date/Time Encounter Type Encounter Description Reason Pro vider Source Sep 02, 2024 12:42 PM Outpatient Encounter DENTAL IHE Encounter Template Text not used by [facility] Lab Results: +/- 30 days of the encounter This section includes the Chemistry and Hematology Lab Results on record with [place] for the patient. Radiology Reports and Pathology Reports are provided separately, in subsequent sections. Lab Results This section contains the Chemistry/Hematology Results that were resulted 30 days before or 30 daysafter the date of the Encounter. Date/Time Source Result Type Result - Unit Interpretation Reference Range Comment Sep 02, 2024 10:25 AM [facility] MICROALBUMIN CREATININE RATIO PANEL Specimen Type: URINE No comment entered. Ordering Provider: Zach SANCHEZ Report Released Date/Time: Aug 28, 2024 09:07 AM Reporting Lab: [facility] [address] [address] Performing Lab: [facility] [address] [address] MICROALBUMIN/C REATININE RATIO 13.4 mg/g 0-29.9 MICROALBUMIN,Q UANTITATIVE 0.7 mg/dL RR UNAVAIL CREATININE URINE 52.17 mg/dL Sep 02, 2024 10:25 AM [facility] BASIC METABOLIC PANEL (non-fasting) Specimen Type: SERUM No comment entered. Ordering Provider: Zach SANCHEZ Report Released Date/Time: Aug 28, 2024 09:07 AM Reporting Lab: [facility] [address] [facility] [address] Performing Lab: [address] [address] UREA NITROGEN 33 mg/dL H 7-25 GLUCOSE 97 mg/dL 65-100 SODIUM 136 mmol/L 135-145 POTASSIUM 4.7 mmol/L 3.5-5.0 CHLORIDE 106 mmol/L 100-110 CO2 24 meq/L 20-30 CREATININE, Serum 1.40 mg/dL 0.50-1.40 eGFR(CKD-EPI 2020) 50 mL/min L >60 Sep 02, 2024 10:25 AM [facility] LIPID PANEL, NON FASTING Specimen Type: SERUM No comment entered. Ordering Provider: Zach SANCHEZ Report Released Date/Time: Aug 28, 2024 09:07 AM Reporting Lab: [facility] [address] [facility] [address] Performing Lab: [address] [address] CHOLESTEROL 128 mg/dL TRIGLYCERIDE 69 mg/dL 0-150 LDL calculated 60 mg/dL 0-129 CHOL/HDL 2.4 HDL CHOLESTEROL 54 mg/dL 40-60 Sep 02, 2024 10:25 AM [facility] TSH Specimen Type: SERUM No comment entered. Ordering Provider: Zach SANCHEZ Report Released Date/Time: Aug 28, 2024 09:07 AM Reporting Lab: [facility] [address] [address] Performing Lab: [facility] [address] [address] TSH 1.43 u[IU]/mL 0.35-5.00 Sep 02, 2024 10:25 AM [facility] HEMOGLOBIN A1C PANEL Specimen Type: BLOOD [...] Aug 28, 2024 09:07 AM Reporting Lab: [facility] [address] [address] Performing Lab: [facility] [address] HEMOGLOBIN A1C 5.1 4.0-5.6 Sep 02, 2024 10:25 AM [facility] CALCIUM Specimen Type: SERUM No comment entered. Ordering Provider: Zach SANCHEZ Report Released Date/Time: Aug 28, 2024 09:07 AM Reporting Lab: [facility] [address] [facility] [address] Performing Lab: [address] [address] CALCIUM 10.0 mg/dL 8.5-10.2 Sep 02, 2024 10:25 AM [facility] CBC AND DIFF (AUTO) Specimen Type: BLOOD No comment entered. Ordering Provider: Zach SANCHEZ Report Released Date/Time: Aug 28, 2024 09:07 AM Reporting Lab: [facility] [address] [facility] [address] Performing Lab: [facility] [address] [address] WBC 8.50 10*3/uL 4.50-11.00 RBC 3.92 10*6/uL [...] and tobacco- related health factors from the [place] facility where the Encounter took place. Current Smoking Status This section includes the most current smoking, or tobacco-related health factor, from the [place] facility where the Encounter took place. Date/Time Current Smoking Status Comment [facility] it[facility] March 24, 2024 08:30 AM VA-TOBACCO NEVER USED [place] [facility] [place] [facility] Tobacco Use History This section includes a history of the smoking, or tobacco-related health factors, that were collected on or before the date of the Encounter. The data comes from the [place] facility where the Encounter took place. Date/Time Smoking Status/Tobacco Use Comment F acility March 29, 2023 08:30 AM VA-TOBACCO FORMER USER [facility] [place] [facility] March 29, 2023 08:30 AM VA-TOBACCO QUIT 15 YRS OR MORE [facility] [place] [facility] Feb 10, 2022 08:30 AM VA-TOBACCO FORMER USER [facility] [place] [facility] Feb 10, 2022 08:30 AM VA-TOBACCO QUIT 15 YRS OR MORE [place] [facility] [place] [facility] Jan 14, 2021 09:00 AM VA-TOBACCO FORMER USER [facility] [place] [facility] Jan 14, 2021 09:00 AM VA-TOBACCO QUIT 15 YRS OR MORE [facility] [place] [facility] Dec 23, 2018 09:29 AM VA-TOBACCO FORMER USER [facility] [place] [facility] Dec 23, 2018 09:29 AM VA-TOBACCO QUIT 15 YRS OR MORE [facility] [place] [facility] Dec 23, 2018 08:28 AM VA-TOBACCO FORMER USER [facility] [place] [facility] Dec 23, 2018 08:28 AM VA-TOBACCO QUIT 15 YRS OR MORE [place] [facility] [place] [facility] Jun 22, 2017 09:22 AM LIFETIME NON-TOBACCO USER [place] [facility] [place] [facility] Encounter Notes: All associated encounter notes This section contains the clinical notes associated to the Encounter. Date/Time Encounter Note(s) Provider Source Sep 02, 2024 12:42 PM ADMINISTRATIVE NOT E: LOCAL TITLE: ADMINISTRATIVE NOTE STANDARD TITLE: ADMINISTRATIVE NOTE DATE OF NOTE: SEP 02, 2024@12:42 ENTRY DATE: SEP 02, 2024@12:42:57 AUTHOR: COLON,DONALDO M EXP COSIGNER: URGENCY: STATUS: COMPLETED states that he will no longer be eligible after october for dental and did not want to schedule. RTC 03/03/2025 dispositioned as does not want to reschedule appointment. Dispositioned on 09/02/2024 /yaniv/ DONALDO MORGAN ADVANCED SET UP MACHINIST Signed: 09/02/2024 12:43 DONALDO MORGAN [place] [facility]
--- OUTSIDE RECORDS SUMMARY | 2024-11-13 10:10 | XMS_ITS | Encounter Summary ---
Author Name [facility] of [facility] [place] Organization [facility] [place] Address [address] [place] [address] Care Team Providers Care Diagnostic Technician Name Role Phone LAURIE SANCHEZ Primary Care [...] [facility] (WNR) MEDICARE ADVANTAGE [facility] (WNR) Nov 12, 2017 [id number] [phone] Eduar COMBS PATIENT [place] [facility] SPECIAL CLASS [place] March 27, 2018 STACY CHURCHILL [id number] Eduar COMBS PATIENT Selected Encounter This section includes the information on record at [place] for the Encounter. Date/Time Encounter Type Encounter Description Reason Pro vider Source Sep 01, 2024 12:00 AM Outpatient Encounter COMMUNITY [...] 20 appointments. The data comes from all [place] treatment facilities. Appointment Date/Time Appointment Type Appointme nt Facility Name Sep 02, 2024 09:45 AM AMBULATORY - NONE [facility] Lab Results: +/- 30 days of the encounter This section includes the Chemistry and Hematology Lab Results on record with [place] for the patient. Radiology Reports and Pathology Reports are provided separately, in subsequent sections. Lab Results This section contains the Chemistry/Hematology Results that were resulted 30 days before or 30 daysafter the date of the Encounter. Date/Time Source Result Type Result - Unit Interpretation Reference Range Comment Sep 02, 2024 10:25 AM [facility] MICROALBUMIN CREATININE RATIO PANEL Specimen Type: URINE No comment entered. Ordering Provider: Zach SANCHEZ Report Released Date/Time: Aug 28, 2024 09:07 AM Reporting Lab: [facility] [address] [facility] [address] Performing Lab: [facility] [address] [address] MICROALBUMIN/C REATININE RATIO 13.4 mg/g 0-29.9 MICROALBUMIN,Q UANTITATIVE 0.7 mg/dL RR UNAVAIL CREATININE URINE 52.17 mg/dL Sep 02, 2024 10:25 AM [facility] BASIC METABOLIC PANEL (non-fasting) Specimen Type: SERUM No comment entered. Ordering Provider: Zach SANCHEZ Report Released Date/Time: Aug 28, 2024 09:07 AM Reporting Lab: [facility] [address] [facility] [address] Performing Lab: [facility] [address] [address] UREA NITROGEN 33 mg/dL H 7-25 GLUCOSE 97 mg/dL 65-100 SODIUM 136 mmol/L 135-145 POTASSIUM 4.7 mmol/L 3.5-5.0 CHLORIDE 106 mmol/L 100-110 CO2 24 meq/L 20-30 CREATININE, Serum 1.40 mg/dL 0.50-1.40 eGFR(CKD-EPI 2020) 50 mL/min L >60 Sep 02, 2024 10:25 AM [facility] LIPID PANEL, NON FASTING Specimen Type: SERUM No comment entered. Ordering Provider: Zach SANCHEZ Report Released Date/Time: Aug 28, 2024 09:07 AM Reporting Lab: [facility] [address] [facility] [address] Performing Lab: [facility] [address] [facility] [address] CHOLESTEROL 128 mg/dL TRIGLYCERIDE 69 mg/dL 0-150 LDL calculated 60 mg/dL 0-129 CHOL/HDL 2.4 HDL CHOLESTEROL 54 mg/dL 40-60 Sep 02, 2024 10:25 AM [facility] TSH Specimen Type: SERUM No comment entered. Ordering Provider: Zach SANCHEZ Report Released Date/Time: Aug 28, 2024 09:07 AM Reporting Lab: [facility] [address] [facility] [address] Performing Lab: [facility] [address] [facility] [address] TSH 1.43 u[IU]/mL 0.35-5.00 Sep 02, 2024 10:25 AM [facility] HEMOGLOBIN A1C PANEL Specimen Type: BLOOD [...] Aug 28, 2024 09:07 AM Reporting Lab: [facility] [address] [facility] [address] Performing Lab: [facility] [address] [facility] [address] HEMOGLOBIN A1C 5.1 4.0-5.6 Sep 02, 2024 10:25 AM [facility] CBC AND DIFF (AUTO) Specimen Type: BLOOD No comment entered. Ordering Provider: Zach SANCHEZ Report Released Date/Time: Aug 28, 2024 09:07 AM Reporting Lab: [facility] [address] [facility] [address] Performing Lab: [facility] [address] [facility] [address] WBC 8.50 10*3/uL 4.50-11.00 RBC 3.92 10*6/uL [...] 10*3/uL 0.00-0.00 Sep 02, 2024 10:25 AM [facility] CALCIUM Specimen Type: SERUM No comment entered. Ordering Provider: Zach SANCHEZ Report Released Date/Time: Aug 28, 2024 09:07 AM Reporting Lab: [place] [facility] [facility] [address] [facility] [address] Performing Lab: [place] [facility] [place] [facility] [address] [address] CALCIUM 10.0 mg/dL 8.5-10.2 Social History: Smoking Status (Most current) and Tobacco Use (All prior to encounter date) This section includes the most current, and the historical, smoking and tobacco- related health factors from the [place] facility where the Encounter took place. Current Smoking Status This section includes the most current smoking, or tobacco-related health factor, from the [place] facility where the Encounter took place. Date/Time Current Smoking Status Comment Facil ity March 24, 2024 08:30 AM VA-TOBACCO NEVER USED [place] [facility] [facility] Tobacco Use History This section includes a history of the smoking, or tobacco-related health factors, that were collected on or before the date of the Encounter. The data comes from the [place] facility where the Encounter took place. Date/Time Smoking Status/Tobacco Use Comment F acility March 29, 2023 08:30 AM VA-TOBACCO FORMER USER [facility] [place] [facility] March 29, 2023 08:30 AM VA-TOBACCO QUIT 15 YRS OR MORE [facility] [place] [facility] Feb 10, 2022 08:30 AM VA-TOBACCO FORMER USER [place] [facility] [place] [facility] Feb 10, 2022 08:30 AM VA-TOBACCO QUIT 15 YRS OR MORE [facility] [place] [facility] Jan 14, 2021 09:00 AM VA-TOBACCO FORMER USER [facility] [place] [facility] Jan 14, 2021 09:00 AM VA-TOBACCO QUIT 15 YRS OR MORE [facility] [place] [facility] Dec 23, 2018 09:29 AM VA-TOBACCO FORMER USER [facility] [place] [facility] Dec 23, 2018 09:29 AM VA-TOBACCO QUIT 15 YRS OR MORE [facility] [place] [facility] Dec 23, 2018 08:28 AM VA-TOBACCO FORMER USER [place] [facility] [place] [facility] Dec 23, 2018 08:28 AM VA-TOBACCO QUIT 15 YRS OR MORE [place] [facility] Jun 22, 2017 09:22 AM LIFETIME NON-TOBACCO USER [facility] Encounter Notes: All associated encounter notes This section contains the clinical notes associated to the Encounter. Date/Time Encounter Note(s) Provider Source Sep 01, 2024 12:00 AM NONVA CONSULT: LOCAL TITLE: COMMUNITY CARE-CONSULT RESULT NOTE STANDARD TITLE: NONVA CONSULT DATE OF NOTE: SEP 01, 2024 ENTRY DATE: OCT 02, 2024@07:48:39 AUTHOR: NEL HDEZ EXP COSIGNER: URGENCY: STATUS: COMPLETED VistA Imaging - Scanned Document SCANNED DOCUMENT SIGNATURE NOT REQUIRED Electronically Filed: 10/02/2024 by: NEL HDEZ SUPERVISOR [employer] NEL HDEZ [facility] Sep 01, 2024 12:00 AM NONVA CONSULT: LOCAL TITLE: COMMUNITY CARE-CONSULT RESULT NOTE STANDARD TITLE: NONVA CONSULT DATE OF NOTE: SEP 01, 2024 ENTRY DATE: OCT 12, 2024@08:21:22 AUTHOR: RONALD NOLASCO EXP COSIGNER: URGENCY: STATUS: COMPLETED VistA Imaging - Scanned Document SCANNED DOCUMENT SIGNATURE NOT REQUIRED Electronically Filed: 10/12/2024 by: RONALD MORA [facility]
--- OUTSIDE RECORDS SUMMARY | 2024-11-13 10:10 | XMS_ITS | Encounter Summary ---
Author Name [facility] [place] Organization [facility] [place] Address [address] [place] [address] Care Team Providers Care College Teacher Name Role Phone LAURIE SANCHEZ Primary Care [...] Weiss's Name Patient's Relationship to Policy Weiss [facility] (WNR) MEDICARE ADVANTAGE [facility] (WNR) Nov 12, 2017 [id number] Eduar COMBS PATIENT [facility] SPECIAL CLASS [place] March 27, 2018 STACY CHURCHILL [id number] Eduar COMBS PATIENT Selected Encounter This section includes the information on record at [place] for the Encounter. Date/Time Encounter Type Encounter Description Reason Pro vider Source Jul 09, 2024 12:00 AM Outpatient Encounter COMMUNITY CARE [...] AMBULATORY - NONE [place] [facility] [facility] Social History: Smoking Status (Most current) and Tobacco Use (All prior to encounter date) This section includes the most current, and the historical, smoking and tobacco- related health factors from the [place] facility where the Encounter took place. Current Smoking Status This section includes the most current smoking, or tobacco-related health factor, from the [place] facility where the Encounter took place. Date/Time Current Smoking Status Comment Facil ity March 24, 2024 08:30 AM VA-TOBACCO NEVER USED [place] [facility] [place] [facility] Tobacco Use History This section includes a history of the smoking, or tobacco-related health factors, that were collected on or before the date of the Encounter. The data comes from the [place] facility where the Encounter took place. Date/Time Smoking Status/Tobacco Use Comment F acility March 29, 2023 08:30 AM VA-TOBACCO FORMER USER [place] [facility] [place] [facility] March 29, 2023 08:30 AM VA-TOBACCO QUIT 15 YRS OR MORE [facility] [place] [facility] Feb 10, 2022 08:30 AM VA-TOBACCO FORMER USER [place] [facility] [place] [facility] Feb 10, 2022 08:30 AM VA-TOBACCO QUIT 15 YRS OR MORE [place] [facility] [facility] Jan 14, 2021 09:00 AM VA-TOBACCO FORMER USER [place] [facility] [place] [facility] Jan 14, 2021 09:00 AM VA-TOBACCO QUIT 15 YRS OR MORE [facility] [place] [facility] Dec 23, 2018 09:29 AM VA-TOBACCO FORMER USER [place] [facility] [place] [facility] Dec 23, 2018 09:29 AM VA-TOBACCO QUIT 15 YRS OR MORE [place] [facility] [facility] Dec 23, 2018 08:28 AM VA-TOBACCO FORMER USER [place] [facility] [place] [facility] Dec 23, 2018 08:28 AM VA-TOBACCO QUIT 15 YRS OR MORE [place] [facility] [place] [facility] Jun 22, 2017 09:22 AM LIFETIME NON-TOBACCO USER [place] [facility] Encounter Notes: All associated encounter notes This section contains the clinical notes associated to the Encounter. Date/Time Encounter Note(s) Provider Source Jul 09, 2024 12:00 AM NONVA CONSULT: LOCAL TITLE: COMMUNITY CARE-CONSULT RESULT NOTE STANDARD TITLE: NONVA CONSULT DATE OF NOTE: JUL 09, 2024 ENTRY DATE: SEP 15, 2024@10:23:13 AUTHOR: RAHUL PEREZ EXP COSIGNER: URGENCY: STATUS: COMPLETED VistA Imaging - Scanned Document SCANNED DOCUMENT SIGNATURE NOT REQUIRED Electronically Filed: 09/15/2024 by: RAHUL PEREZ LICENSED PRACTICAL NURSE RAHUL PEREZ [facility]
--- OUTSIDE RECORDS SUMMARY | 2024-11-13 10:11 | XMS_ITS ---
Author Name [facility] [place] [facility] [place] [address] [place] [id number] Care Team Providers Care Mice Raiser Name Role Phone LAURIE SANCHEZ Primary Care [...] Weiss's Name Patient's Relationship to Policy Weiss [facility] (WNR) MEDICARE ADVANTAGE [facility] (WNR) Nov 12, 2017 [id number] [phone] Eduar COMBS PATIENT [facility] CLASS [facility] March 27, 2018 STACY CHURCHILL [id number] Eduar COMBS PATIENT Selected Encounter This section includes the information on record at [place] for the Encounter. Date/Time Encounter Type Encounter Description Reason Pro vider Source Oct 03, 2024 10:30 AM Outpatient Encounter PRIMARY CARE/MEDICINE IHE Encounter Template Text not used by [facility] Social History: Smoking Status (Most current) and Tobacco Use (All prior to encounter date) This section includes the most current, and the historical, smoking and tobacco- related health factors from the [place] facility where the Encounter took place. Current Smoking Status This section includes the most current smoking, or tobacco-related health factor, from the [place] facility where the Encounter took place. Date/Time Current Smoking Status Comment Sarwat ity March 24, 2024 08:30 AM VA-TOBACCO NEVER USED [facility] Tobacco Use History This section includes a history of the smoking, or tobacco-related health factors, that were collected on or before the date of the Encounter. The data comes from the [place] facility where the Encounter took place. Date/Time Smoking Status/Tobacco Use Comment F acility March 29, 2023 08:30 AM VA-TOBACCO FORMER USER [facility] March 29, 2023 08:30 AM VA-TOBACCO QUIT 15 YRS OR MORE [facility] Feb 10, 2022 08:30 AM VA-TOBACCO FORMER USER [facility] Feb 10, 2022 08:30 AM VA-TOBACCO QUIT [address] [facility] Jan 14, 2021 09:00 AM VA-TOBACCO FORMER USER [facility] Jan 14, 2021 09:00 AM VA-TOBACCO QUIT [address] [facility] Dec 23, 2018 09:29 AM VA-TOBACCO FORMER USER [facility] Dec 23, 2018 09:29 AM VA-TOBACCO QUIT [address] [facility] Dec 23, 2018 08:28 AM VA-TOBACCO FORMER USER [facility] Dec 23, 2018 08:28 AM VA-TOBACCO QUIT [address] [facility] Jun 22, 2017 09:22 AM LIFETIME NON-TOBACCO USER CT [facility] Encounter Notes: All associated encounter notes This section contains the clinical notes associated to the Encounter. Date/Time Encounter Note(s) Provider Source Oct 03, 2024 10:30 AM PRIMARY CARE TELEP CRAIG ENCOUNTER NOTE: LOCAL TITLE: TELEPHONE NOTE/PRIMARY CARE STANDARD TITLE: PRIMARY CARE TELEPHONE ENCOUNTER NOTE DATE OF NOTE: OCT 03, 2024@10:30 ENTRY DATE: OCT 03, 2024@10:30:40 AUTHOR: JONATAN LAMA EXP COSIGNER: URGENCY: STATUS: COMPLETED MSA lm to call to r/s 10/15 cxp PCP appt. Letter sent. /yaniv/ JONATAN LAMA [employer] Signed: 10/03/2024 10:[address] [facility]
== END 2024-11-13 10:56 | disposition home or self-care (01) ==
PROVIDERS: PCP Internal Medicine Medical Oncology; Visit Provider Surgery Vascular Surgery
DX: I73.9 Peripheral vascular disease, unspecified (principal)
CPT/HCPCS: 99214; G2211

== ENCOUNTER → 2024-11-13 10:00 | Outpatient (BNVA) | payer BC, SELFPAY | PROVIDERS: PCP Internal Medicine Medical Oncology; Visit Provider Surgery Vascular Surgery | DX: I73.9 Peripheral vascular disease, unspecified (principal); Z95.820 Peripheral vascular angioplasty status with implants and grafts | CPT/HCPCS: 99212 ==

== ENCOUNTER 2024-11-17 08:45 | Outpatient (AMB) | payer OTHER, SELFPAY ==
--- NOTE | 2024-11-17 08:50 | HO.SPINEOV ---
Intake Visit Reasons: 2nd post op with Xrays Intake Note: Mr. Price is here today for his 2nd post op with xrays. [employer] Shothole Driller Required: No Allergies oxycodone [From PERCOCET] Allergy (Severe, Verified 11/13/24 10:05) headache/diaphoresis/nausea bee pollen [bee stings] Allergy (Intermediate, Verified 11/13/24 10:05) Hives Assessment & Plan Assessment & Plan (1) Status post lumbar surgery: Code(s): Z98.890 - Other specified postprocedural states Category: Surgical Plan Procedure: L2-5 transkambin lumbar fusion Spencer comes in today for his 2nd postoperative visit. He is 2 months out from his L2-5 oblique lateral lumbar interbody fusion. To recap during his last office visit he was reporting some continued back pain with standing and walking, and some tingling in his toes. He had stated he was only about to walk for about 5 minutes before sitting down. Today he reports that he was standing and walking much better with minimal back pain. He feels this respect he has progressed quite a bit. Unfortunately, today he is stating that he has complete numbness of the top of his left foot. This began abruptly 2-3 weeks ago without any inciting incident. The patient has 5/5 strength in his lower extremities. No footdrop. No clonus. Left patellar reflex is 1+ hypoactive. The rest of his lower extremity reflexes are 2+ intact. On sensation testing he has notable hypoesthesia to light touch over dorsal surface of left foot. This was compared to the medial, lateral, and inferior aspects of the foot. Due to the patient's disclosure of new onset numbness on the top of his left foot I would like to order him a stat MRI lumbar spine with and without contrast to rule out any acute nerve root impingement. Typically if this happened as a result of surgery we would see it much sooner right after surgery. His x-ray imaging appears stable when compared to previous imaging when he did not have any numbness, and there are no changes in instrumentation positioning, therefore I do not believe a CT scan would be of maximum utility versus an MRI at this time. We will follow up with him again once his MRI is complete. Vikram Baltazar MD,PhD [facility] Orders: Orders MR lumbar spine wo/w con Today Z98.890 - Other specified postprocedural states XR lumbar spine 4V min Today M43.16 - Spondylolisthesis, lumbar region Coding Level of Care Code Global (19574) Diagnoses Status post lumbar surgery Z98.890
--- OUTSIDE RECORDS SUMMARY | 2024-11-17 09:11 | XMS_ITS | Continuity of Care Document ---
Author Name [facility] Organization [facility] Care Team Providers Care Rn Field Case Manager Name Role Phone [facility] Unavailable Unavailable Problems Combined list of problems [...] HCS CAD - Coronary Artery Disease ([facility] [id number]) Active Condition Jun 17, 2022 Entered By: PAU MARY Comment: Following with Dr. 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, 2018 Entered By: MARI SCHMID Comment: BCG- teatment ( ) cystoscopy scheduled 12/26/18 and 01/17/19 [facility] [place] [facility] Degenerative disc disease Active Condition [facility] [place] [facility] H/O cardiac surgery Active Condition Jun 22, 2017 Entered By: MARI SCHMID Comment: stent 2015 [facility] [place] [facility] History of - surgery Active Condition [...] Colonscopy - polyps ( 5 yrs )- [facility] 2018 Entered By: MARI SCHMID Comment: 2018 [...] wants MRI of lumbar spine [facility] [place] [facility] PAD - Peripheral arterial disease Active Condition Dec 28 8 Entered By: MARI SCHMID Comment: 2nd aortogram- bil 12/19/17Au2021 Entered By: PAU MARY Comment: with caulidcation, though improved, following with Vascular-- Dr. Bear- has required multiple LE interventions, Vascular considering switchign plavix to xarelto 2.5mg bid [facility] [place] [facility] Screening status Active Condition Dec 28, 2017 Entered By: MARI SCHMID Comment: Colonoscopy 2018 ( no result ) - per pt repeat in 5 yrs.Dec 28, 2017 Entered By: MARI SCHMID Comment: aortogram bilateral lower legs - [facility] 12/19/17 - DR SYLWIA STROUD [place] [facility] [place] [facility] Under care of multiple providers Active Condition Dec 28, 2017 Entered By: MARI SCHMID Comment: non va- Dr Trevon Hill ( in office and the [facility])Jun 28, 2017 Entered By: MARI SCHMID Comment: Urology- Dr Petit 2018 Entered By: MARI SCHMID Comment: [facility]- ( eye/ PODIATRY) [facility] Diagnosis: ICD-10-CM K03.6 Deposits [accretions] on teeth Active Diagnosis [facility] Diagnosis: ICD-10-CM I10 Essential (primary) hypertension Active Diagnosis [facility] Diagnosis: ICD-10-CM M54.17 Radiculopathy, lumbosacral region Active Diagnosis [facility] Medications Combined list of outpatient medications from Department of Defense and [facility] facilities.Medications provided include 1) outpatient medications from the last 15 months, and 2) patient-reported medications. Medication Details Route Status Patient Instructions Prescription Expires Prescription Number Last Dispense Date Ordering Provider Order Date Order Qty Source ASPIRIN 81MG TAB,EC TAKE ONE TABLET BY MOUTH ONCE DAILY TO PREVENT STROKE/H EART ATTACK ORAL 03/29/2024 [id number] ERON MANUEL 2022 120 [facility] ATORVASTATI N CA 80MG TAB TAKE ONE TABLET BY MOUTH ONCE DAILY FOR CHOLESTE ROL ORAL ACTIVE 03/25/2025 [id number] ERON MANUEL 2023 90 [facility] ATORVASTAT[facility] N CA 80MG TAB TAKE ONE TABLET BY MOUTH ONCE DAILY FOR CHOLESTE ROL ORAL DISCONT INUED (EDIT) 03/29/2024 [id number] ERON MANUEL 2022 90 [facility] CLOPIDOGREL BISULFATE 75MG TAB TAKE ONE TABLET BY MOUTH ONCE DAILY FOR MYOCARDI AL REINFARC TION PREVENTI ON ORAL ACTIVE 03/25/2025 [id number] ERON MANUEL 2023 90 [facility] CLOPIDOGREL BISULFATE 75MG TAB TAKE ONE TABLET BY MOUTH ONCE DAILY ORAL DISCONT INUED (EDIT) 03/29/2024 [id number] ERON MANUEL 2022 90 [facility] [place] [facility] [facility] EZETIMIBE 10MG TAB TAKE ONE TABLET BY MOUTH ONCE DAILY TO LOWER CHOLESTE ROL ORAL ACTIVE 03/25/2025 [id number] ERON MANUEL 2023 90 [facility] [place] EZETIMIBE 10MG TAB TAKE ONE TABLET BY MOUTH ONCE DAILY TO LOWER CHOLESTE ROL ORAL DISCONT INUED (EDIT) 03/29/2024 [id number] ERON MANUEL 2022 90 [facility] [place] [facility] HYDROCHLORO THIAZIDE 12.5MG/NISHA NOPRIL 10MG TAB TAKE 1 TABLET BY MOUTH AT BEDTIME ORAL DISCONT INUED (EDIT) 03/29/2024 [id number] ERON MANUEL 2022 90 [facility] [place] [facility] [facility] HYDROCHLORO THIAZIDE 12.5MG/NISHA NOPRIL 20MG TAB TAKE 1 TABLET BY MOUTH AT BEDTIME FOR HIGH BLOOD PRESSURE (NOTE DOSE) ORAL ACTIVE 03/25/2025 [id number] ERON MANUEL 2023 90 [facility] [place] [facility] [facility] METOPROLOL SUCCINATE 50MG TAB,SA TAKE ONE TABLET BY MOUTH ONCE DAILY FOR BLOOD PRESSURE /HEART ORAL ACTIVE 03/25/2025 [id number] ERON MANUEL 2023 90 [facility] [place] [facility] [facility] METOPROLOL SUCCINATE 50MG TAB,SA TAKE ONE TABLET BY MOUTH ONCE DAILY FOR BLOOD PRESSURE /HEART ORAL DISCONT INUED (EDIT) 03/24/2024 [id number] 4 ERON MANUEL 2022 90 [facility] [place] [facility] [facility] NAPROXEN 500MG TAB TAKE ONE TABLET BY MOUTH TWICE DAILY NEEDED FOR PAIN TAKE WITH FOOD ORAL 10/12/2024 [id number] [place] ERON LAURA BINU Bradley 2023 90 [facility] [place] [facility] NAPROXEN 500MG TAB TAKE ONE TABLET BY MOUTH TWICE DAILY NEEDED TAKE WITH FOOD; FOR PAIN/INF LAMMATIO N/SWELLTommy NG ORAL 02/10/2024 [id number] 4 [place] LAURAERONDarwin Bradley 2022 180 [facility] [place] [facility] [facility] SODIUM FLUORIDE 1.1% TOOTHPASTE BRUSH SMALL AMOUNT TO TEETH TWICE DAILY FOR TOOTH DECAY PREVENTI ON DENTAL ACTIVE 09/03/2025 [id number] MIKAELA HEBERT 2023 51 [facility] [place] [facility] [facility] SODIUM FLUORIDE 1.1% TOOTHPASTE BRUSH SMALL AMOUNT TO TEETH TWICE DAILY DENTAL 06/01/2024 [id number] CRISSY MAHER 2022 [facility] Allergies, Adverse Reactions, Alerts Combined list of allergies from Department of Defense and Veterans Affairs facilities. It does not include entries that were removed or entered in error. Substance Category Reaction Severity Reaction type Status Date Reported Comments Source PERCOCET Propensity to adverse reactions to drug (finding) Sweating active 7 [facility] [place] [facility] Immunizations Combined list of available immunizations from the Department of Defense and Veterans Affairs facilities. Immunization Series Date Given Administered By Site Reaction Lot Number CVX Code Drug Acute Care Nurse Practitioner Status Comments Source INFLUENZA, UNSPECIFIED FORMULATION 2022 88 complet ed [place] [facility] [place] [facility] INFLUENZA, UNSPECIFIED FORMULATION 2021 88 complet ed [facility] [place] [facility] COVID-19 (MODERNA), MRNA, LNP-S, PF, 100 MCG/0.5ML DOSE OR 50 MCG/0.25ML DOSE 3 2020 207 complet ed [facility] COVID-19 (MODERNA), MRNA, LNP-S, PF, 100 MCG/0.5 ML DOSE 2 2020 207 complet ed MOD; [id number]; 1 [facility] [place] COVID-19 (MODERNA), MRNA, LNP-S, PF, 100 MCG/0.5 ML DOSE 1 2020 207 complet ed MOD; [id number]; 1 [facility] [place] [...] [address] Hill office [facility] [place] [facility] [facility] PNEUMOCOCCAL CONJUGATE PCV 13 2016 133 complet ed [facility] [place] [facility] ZOSTER (SHINGLES) (HISTORICAL) 2016 121 complet ed Proximal Left Arm [facility] [place] FLU,3 YRS (HISTORICAL) [address] Sorensen office [facility] [place] [facility] [facility] Results Combined list of recent chemistry, hematology and other laboratory results from Department of Defense and Veterans Affairs, ranging from 15 months to all on record, depending upon the facility. Order Name Results Value Reference Range Date Interpretation Specimen Comments Source BASIC METABOLIC PANEL (non-fast ing) UREA NITROGEN [MASS/VOLUM E] IN SERUM OR PLASMA 33 mg/dL 7 - 25 09/02 H Specimen Type: SERUM No comment entered. Ordering Provider: LAURIE CHINCHILLA Report Released Date/Time: Aug 28, 2024 09:07 AM Reporting Lab: [place] [facility] [place] [facility] [address] [facility] [address] Performing Lab: [facility] [address] [facility] [address] [facility] BASIC METABOLIC PANEL (non-fast ing) GLUCOSE [MASS/VOLUM E] IN SERUM OR PLASMA 97 mg/dL 65 - 100 09/02 Specimen Type: SERUM No comment entered. Ordering Provider: LAURIE CHINCHILLA Report Released Date/Time: Aug 28, 2024 09:07 AM Reporting Lab: [facility] [address] [facility] [address] Performing Lab: [facility] [address] [facility] [address] [facility] BASIC METABOLIC PANEL (non-fast ing) SODIUM [MOLES/VOLU ME] IN SERUM OR PLASMA 136 mmol/L 135 - 145 09/02 Specimen Type: SERUM No comment entered. Ordering Provider: LAURIE CHINCHILLA Report Released Date/Time: Aug 28, 2024 09:07 AM Reporting Lab: [facility] [address] [facility] [address] Performing Lab: [facility] [address] [facility] [address] [facility] BASIC METABOLIC PANEL (non-fast ing) POTASSIUM [MOLES/VOLU ME] IN SERUM OR PLASMA 4.7 mmol/L 3.5 - 5.0 09/02 Specimen Type: SERUM No comment entered. Ordering Provider: LAURIE CHINCHILLA Report Released Date/Time: Aug 28, 2024 09:07 AM Reporting Lab: [facility] [address] [facility] [address] Performing Lab: [facility] [address] [facility] [address] [facility] BASIC METABOLIC PANEL (non-fast ing) CHLORIDE [MOLES/VOLU ME] IN SERUM OR PLASMA 106 mmol/L 100 - 110 09/02 Specimen Type: SERUM No comment entered. Ordering Provider: LAURIE CHINCHILLA Report Released Date/Time: Aug 28, 2024 09:07 AM Reporting Lab: [address] [address] Performing Lab: [address] [address] [facility] BASIC METABOLIC PANEL (non-fast ing) CARBON DIOXIDE, TOTAL [MOLES/VOLU ME] IN SERUM OR PLASMA 24 meq/L 20 - 30 09/02 Specimen Type: SERUM No comment entered. Ordering Provider: LAURIE CHINCHILLA Report Released Date/Time: Aug 28, 2024 09:07 AM Reporting Lab: [address] [address] Performing Lab: [address] [address] [facility] BASIC METABOLIC PANEL (non-fast ing) CREATININE [MASS/VOLUM E] IN SERUM OR PLASMA 1.40 mg/dL 0.50 - 1.40 09/02 Specimen Type: SERUM No comment entered. Ordering Provider: LAURIE CHINCHILLA Report Released Date/Time: Aug 28, 2024 09:07 AM Reporting Lab: [address] [address] Performing Lab: [address] [address] [facility] BASIC METABOLIC PANEL (non-fast ing) GLOMERULAR FILTRATION RATE/1.73 SQ M.PREDICTED [VOLUME RATE/AREA] IN SERUM, PLASMA OR BLOOD BY CREATININE- BASED FORMULA (CKD-EPI 2020) 50 mL/min 60 09/02 L Specimen Type: SERUM No comment entered. Ordering Provider: LAURIE CHINCHILLA Report Released Date/Time: Aug 28, 2024 09:07 AM Reporting Lab: [address] [address] Performing Lab: [facility] [place] [facility] [address] [facility] [address] [facility] [place] [facility] CALCIUM CALCIUM [MASS/VOLUM E] IN SERUM OR PLASMA 10.0 mg/dL 8.5 - 10.2 09/02 Specimen Type: SERUM No comment entered. Ordering Provider: LAURIE CHINCHILLA Report Released Date/Time: Aug 28, 2024 09:07 AM Reporting Lab: [facility] [place] [place] [facility] [address] [facility] [address] Performing Lab: [facility] [place] [place] [facility] [address] [facility] [address] [facility] [place] [place] [facility] CBC AND DIFF (AUTO) LEUKOCYTES [#/VOLUME] IN BLOOD BY AUTOMATED COUNT 8.50 10*3/u L 4.50 - 11.00 09/02 Specimen Type: BLOOD No comment entered. Ordering Provider: LAURIE CHINCHILLA Report Released Date/Time: Aug 28, 2024 09:07 AM Reporting Lab: [facility] [place] [facility] [address] [facility] [address] Performing Lab: [facility] [place] [facility] [address] [facility] [address] [facility] CBC AND DIFF (AUTO) ERYTHROCYTE S [#/VOLUME] IN BLOOD BY AUTOMATED COUNT 3.92 10*6/u L 4.23 - 5.66 09/02 L Specimen Type: BLOOD No comment entered. Ordering Provider: LAURIE CHINCHILLA Report Released Date/Time: Aug 28, 2024 09:07 AM Reporting Lab: [facility] [place] [place] [address] [address] Performing Lab: [place] [facility] [place] [place] [facility] [address] [facility] [address] [facility] CBC AND DIFF (AUTO) HEMOGLOBIN [MASS/VOLUM E] IN BLOOD 12.9 g/dL 12.8 - 17 09/02 Specimen Type: BLOOD No comment entered. Ordering Provider: LAURIE CHINCHILLA Report Released Date/Time: Aug 28, 2024 09:07 AM Reporting Lab: [facility] [place] [facility] [address] [facility] [address] Performing Lab: [facility] [place] [facility] [address] [facility] [address] [facility] [place] [facility] CBC AND DIFF (AUTO) HEMATOCRIT [VOLUME FRACTION] OF BLOOD BY AUTOMATED COUNT 38.0 39.2 - 50.4 09/02 L Specimen Type: BLOOD No comment entered. Ordering Provider: LAURIE CHINCHILLA Report Released Date/Time: Aug 28, 2024 09:07 AM Reporting Lab: [facility] [place] [facility] [address] [facility] [address] Performing Lab: [facility] [place] [facility] [address] [facility] [address] [facility] [place] [facility] CBC AND DIFF (AUTO) MCV [ENTITIC VOLUME] BY AUTOMATED COUNT 96.9 fL 82 - 99 09/02 Specimen Type: BLOOD No comment entered. Ordering Provider: LAURIE CHINCHILLA Report Released Date/Time: Aug 28, 2024 09:07 AM Reporting Lab: [facility] [place] [facility] [address] [facility] [address] Performing Lab: [facility] [place] [facility] [address] [facility] [address] [facility] [place] [facility] CBC AND DIFF (AUTO) MCHC [MASS/VOLUM E] BY AUTOMATED COUNT 33.9 g/dL 30.8 - 35.1 09/02 Specimen Type: BLOOD No comment entered. Ordering Provider: LAURIE CHINCHILLA Report Released Date/Time: Aug 28, 2024 09:07 AM Reporting Lab: [facility] [place] [facility] [address] [facility] [address] Performing Lab: [facility] [place] [facility] [address] [facility] [address] [facility] [place] [facility] CBC AND DIFF (AUTO) PLATELETS [#/VOLUME] IN BLOOD BY AUTOMATED COUNT 259 10*3/u L 140 - 360 09/02 Specimen Type: BLOOD No comment entered. Ordering Provider: LAURIE CHINCHILLA Report Released Date/Time: Aug 28, 2024 09:07 AM Reporting Lab: [facility] [place] [place] [facility] [address] [facility] [address] Performing Lab: [facility] [place] [facility] [address] [facility] [address] [facility] [place] [facility] CBC AND DIFF (AUTO) ERYTHROCYTE DISTRIBUTIO N WIDTH [RATIO] BY AUTOMATED COUNT 12.2 12.0 - 16.0 09/02 Specimen Type: BLOOD No comment entered. Ordering Provider: LAURIE CHINCHILLA Report Released Date/Time: Aug 28, 2024 09:07 AM Reporting Lab: [place] [facility] [place] [address] [address] Performing Lab: [place] [facility] [place] [facility] [address] [facility] [address] [facility] [place] [facility] CBC AND DIFF (AUTO) MONOCYTES [#/VOLUME] IN BLOOD BY AUTOMATED COUNT 0.76 10*3/u L 0.30 - 1.10 09/02 Specimen Type: BLOOD No comment entered. Ordering Provider: LAURIE CHINCHILLA Report Released Date/Time: Aug 28, 2024 09:07 AM Reporting Lab: [place] [facility] [place] [facility] [address] [facility] [address] Performing Lab: [place] [facility] [place] [facility] [address] [facility] [address] [place] [facility] [place] [place] [facility] CBC AND DIFF (AUTO) MCH [ENTITIC MASS] BY AUTOMATED COUNT 32.9 pg 26.2 - 32.6 09/02 H Specimen Type: BLOOD No comment entered. Ordering Provider: LAURIE CHINCHILLA Report Released Date/Time: Aug 28, 2024 09:07 AM Reporting Lab: [place] [facility] [place] [facility] [address] [facility] [address] Performing Lab: [facility] [place] [facility] [address] [facility] [address] [facility] [place] [facility] CBC AND DIFF (AUTO) NEUTROPHILS /100 LEUKOCYTES IN BLOOD BY AUTOMATED COUNT 72.2 43.7 - 75.8 09/02 Specimen Type: BLOOD No comment entered. Ordering Provider: LAURIE CHINCHILLA Report Released Date/Time: Aug 28, 2024 09:07 AM Reporting Lab: [facility] [place] [facility] [address] [facility] [address] Performing Lab: [facility] [place] [facility] [address] [facility] [address] [facility] [place] [facility] CBC AND DIFF (AUTO) LYMPHOCYTES /100 LEUKOCYTES IN BLOOD BY AUTOMATED COUNT 14.6 14.0 - 42.3 09/02 Specimen Type: BLOOD No comment entered. Ordering Provider: LAURIE CHINCHILLA Report Released Date/Time: Aug 28, 2024 09:07 AM Reporting Lab: [facility] [place] [facility] [address] [facility] [address] Performing Lab: [facility] [place] [facility] [address] [facility] [address] [facility] [place] [facility] CBC AND DIFF (AUTO) MONOCYTES/1 00 LEUKOCYTES IN BLOOD BY AUTOMATED COUNT 8.9 5.1 - 13.7 09/02 Specimen Type: BLOOD No comment entered. Ordering Provider: LAURIE CHINCHILLA Report Released Date/Time: Aug 28, 2024 09:07 AM Reporting Lab: [facility] [place] [facility] [address] [facility] [address] Performing Lab: [facility] [place] [facility] [address] [facility] [address] [facility] [place] [facility] CBC AND DIFF (AUTO) EOSINOPHILS /100 LEUKOCYTES IN BLOOD BY AUTOMATED COUNT 3.5 0.4 - 6.8 09/02 Specimen Type: BLOOD No comment entered. Ordering Provider: LAURIE CHINCHILLA Report Released Date/Time: Aug 28, 2024 09:07 AM Reporting Lab: [facility] [place] [facility] [address] [facility] [address] Performing Lab: [facility] [place] [facility] [address] [facility] [address] [facility] [place] [facility] CBC AND DIFF (AUTO) BASOPHILS/1 00 LEUKOCYTES IN BLOOD BY AUTOMATED COUNT 0.6 0.1 - 2.0 09/02 Specimen Type: BLOOD No comment entered. Ordering Provider: LAURIE CHINCHILLA Report Released Date/Time: Aug 28, 2024 09:07 AM Reporting Lab: [facility] [place] [facility] [address] [facility] [address] Performing Lab: [facility] [place] [facility] [address] [facility] [address] [facility] [place] [facility] CBC AND DIFF (AUTO) NEUTROPHILS [#/VOLUME] IN BLOOD BY AUTOMATED COUNT 6.13 10*3/u L 2.20 - 7.60 09/02 Specimen Type: BLOOD No comment entered. Ordering Provider: LAURIE CHINCHILLA Report Released Date/Time: Aug 28, 2024 09:07 AM Reporting Lab: [facility] [place] [facility] [address] [facility] [address] Performing Lab: [facility] [place] [place] [facility] [address] [facility] [address] [facility] [place] [facility] CBC AND DIFF (AUTO) LYMPHOCYTES [#/VOLUME] IN BLOOD BY AUTOMATED COUNT 1.24 10*3/u L 1.00 - 3.20 09/02 Specimen Type: BLOOD No comment entered. Ordering Provider: LAURIE CHINCHILLA Report Released Date/Time: Aug 28, 2024 09:07 AM Reporting Lab: [facility] [place] [facility] [address] [facility] [address] Performing Lab: [facility] [place] [facility] [address] [facility] [address] [facility] [place] [facility] CBC AND DIFF (AUTO) EOSINOPHILS [#/VOLUME] IN BLOOD BY AUTOMATED COUNT 0.30 10*3/u L 0.03 - 0.44 09/02 Specimen Type: BLOOD No comment entered. Ordering Provider: LAURIE CHINCHILLA Report Released Date/Time: Aug 28, 2024 09:07 AM Reporting Lab: [facility] [address] [address] Performing Lab: [place] [address] [address] [place] [facility] [place] [facility] CBC AND DIFF (AUTO) BASOPHILS [#/VOLUME] IN BLOOD BY AUTOMATED COUNT 0.05 10*3/u L 0.01 - 0.13 09/02 Specimen Type: BLOOD No comment entered. Ordering Provider: LAURIE CHINCHILLA Report Released Date/Time: Aug 28, 2024 09:07 AM Reporting Lab: [place] [address] [address] Performing Lab: [place] [address] [address] [facility] CBC AND DIFF (AUTO) IMMATURE GRANULOCYTE S/100 LEUKOCYTES IN BLOOD BY AUTOMATED COUNT 0.2 0.0 - 0.7 09/02 Specimen Type: BLOOD No comment entered. Ordering Provider: LAURIE CHINCHILLA Report Released Date/Time: Aug 28, 2024 09:07 AM Reporting Lab: [place] [place] [address] [address] Performing Lab: [place] [address] [address] [facility] CBC AND DIFF (AUTO) IMMATURE GRANULOCYTE S [#/VOLUME] IN BLOOD 0.02 10*3/u L 0.00 - 0.06 09/02 Specimen Type: BLOOD No comment entered. Ordering Provider: LAURIE CHINCHILLA Report Released Date/Time: Aug 28, 2024 09:07 AM Reporting Lab: [place] [address] [place] [address] Performing Lab: [facility]ERRST[facility]USUSEST[facility] [address] [facility] [address] [facility]ERRST[facility]N [facility] CAMPUSUSE [facility] CBC AND DIFF (AUTO) NRBC % 0.0 0.0 - 0.0 09/02 Specimen Type: BLOOD No comment entered. Ordering Provider: LAURIE CHINCHILLA Report Released Date/Time: Aug 28, 2024 09:07 AM Reporting Lab: [facility]ENTERRJOHN PAUL JONES HOSPITALTRN [facility] CAMPUSUSESTONY [facility] [address] [facility] [address] Performing Lab: [facility]ENTERRST. [facility] EASTN [address] [address] [facility]N [facility] CAMPUSUSE [facility] CBC AND DIFF (AUTO) NRBC, ABS 0.00 10*3/u L 0.00 - 0.00 09/02 Specimen Type: BLOOD No comment entered. Ordering Provider: LAURIE CHINCHILLA Report Released Date/Time: Aug 28, 2024 09:07 AM Reporting Lab: [facility]ENTERRST[facility]N [facility] CAMPUSUSESTONY [facility] [address] [facility] [phone] Performing Lab: [facility] CAMPUSUSE[address] [address] [facility] HEMOGLOBI N A1C PANEL HEMOGLOBIN A1C/HEMOGLO [...] Aug 28, 2024 09:07 AM Reporting Lab: [address] [address] Performing Lab: [address] [address] [facility] [place] [facility] LIPID PANEL, NON FASTING CHOLESTEROL [MASS/VOLUM E] IN SERUM OR PLASMA 128 mg/dL 09/02 Specimen Type: SERUM No comment entered. Ordering Provider: LAURIE CHINCHILLA Report Released Date/Time: Aug 28, 2024 09:07 AM Reporting Lab: [facility] [place] [place] [address] [address] Performing Lab: [place] [address] [address] [facility]USUSE [facility] LIPID PANEL, NON FASTING TRIGLYCERID E [MASS/VOLUM E] IN SERUM OR PLASMA 69 mg/dL 0 - 150 09/02 Specimen Type: SERUM No comment entered. Ordering Provider: LAURIE CHINCHILLA Report Released Date/Time: Aug 28, 2024 09:07 AM Reporting Lab: [facility] [place] [place] [address] [address] Performing Lab: [facility] [place] [address] [address] [facility] C[facility]USUSE [facility] LIPID PANEL, NON FASTING CHOLESTEROL IN LDL [MASS/VOLUM E] IN SERUM OR PLASMA BY CALCULATION 60 mg/dL 0 - 129 09/02 Specimen Type: SERUM No comment entered. Ordering Provider: LAURIE CHINCHILLA Report Released Date/Time: Aug 28, 2024 09:07 AM Reporting Lab: [facility] [place] [address] [address] Performing Lab: [facility] [place] [address] [address] [facility] [place] [facility] LIPID PANEL, NON FASTING CHOLESTEROL .TOTAL/CHOL ESTEROL IN HDL [MASS RATIO] IN SERUM OR PLASMA 2.4 09/02 Specimen Type: SERUM No comment entered. Ordering Provider: LAURIE CHINCHILLA Report Released Date/Time: Aug 28, 2024 09:07 AM Reporting Lab: [place] [facility] [place] [place] [address] Performing Lab: [facility] [place] [facility] [address] [facility] [address] [facility] [place] [facility] LIPID PANEL, NON FASTING CHOLESTEROL IN HDL [MASS/VOLUM E] IN SERUM OR PLASMA 54 mg/dL 40 - 60 09/02 Specimen Type: SERUM No comment entered. Ordering Provider: LAURIE CHINCHILLA Report Released Date/Time: Aug 28, 2024 09:07 AM Reporting Lab: [facility] [place] [place] [facility] [address] [facility] [address] Performing Lab: [facility] [place] [facility] [address] [facility] [address] [facility] [place] [facility] MICROALBU MIN CREATININ E RATIO PANEL MICROALBUMI N/CREATININ E [MASS RATIO] IN URINE 13.4 mg/g 0 - 29.9 09/02 Specimen Type: URINE No comment entered. Ordering Provider: LAURIE CHINCHILLA Report Released Date/Time: Aug 28, 2024 09:07 AM Reporting Lab: [facility] [place] [facility] [address] [facility] [address] Performing Lab: [facility] [place] [facility] [address] [facility] [address] [facility] [place] [facility] MICROALBU MIN CREATININ E RATIO PANEL MICROALBUMI N [MASS/VOLUM E] IN URINE 0.7 mg/dL 09/02 Specimen Type: URINE No comment entered. Ordering Provider: LAURIE CHINCHILLA Report Released Date/Time: Aug 28, 2024 09:07 AM Reporting Lab: [facility] [place] [place] [facility] [address] [facility] [address] Performing Lab: [facility] [place] [facility] [address] [facility] [address] [facility] [place] [facility] MICROALBU MIN CREATININ E RATIO PANEL CREATININE [MASS/VOLUM E] IN URINE 52.17 mg/dL 09/02 Specimen Type: URINE No comment entered. Ordering Provider: LAURIE CHINCHILLA Report Released Date/Time: Aug 28, 2024 09:07 AM Reporting Lab: [facility] [place] [facility] [address] [facility] [address] Performing Lab: [facility] [place] [facility] [address] [facility] [address] [facility] [place] TSH THYROTROPIN [UNITS/VOLU ME] IN SERUM OR PLASMA 1.43 u[IU]/ mL 0.35 - 5.00 09/02 Specimen Type: SERUM No comment entered. Ordering Provider: LAURIE CHINCHILLA Report Released Date/Time: Aug 28, 2024 09:07 AM Reporting Lab: [facility] [place] [facility] [address] [facility] [address] Performing Lab: [facility] [place] [facility] [address] [facility] [address] [facility] [place] Vital [...] [facility] 2) Encounters from the Department of Defense facilities going back up to 280 months. Location Location Details Encounter Type Encounter Number Reason For Visit Attending Provider ADM Date DC Date Status Disposition Source [facility] En[facility] [id number] 05/30 [facility] [id number] 06/07 [facility] [id number] 06/29 [facility] [id number] 07/13 [facility] [id number] 08/08 [facility] [id number] 08/14 [facility] En[facility] [id number] 08/17 [facility] CLEAN/INSP ECT JOSE PART DENT [id number] Diagnos is: ICD-10- CM K03.6 Deposit s [accret ions] on teeth<b r/> Dewayne TAFOYA 08/21 [facility] DENTAL BITEWING FOUR IMAGES [id number] Diagnos is: ICD-10- CM K03.6 Deposit s [accret ions] on teeth<b r/> CRISSY MAHER 08/21 [facility] En[facility] [id number] 08/30 [facility]counter [id number] 11/28 [facility] [id number] 01/31 [facility]counter [id number] 02/06 [facility] En[facility] [id number] 02/21 [facility] CLEAN/INSP ECT JOSE PART DENT [id number] Diagnos is: ICD-10- CM K03.6 Deposit s [accret ions] on teeth<b r/> Dewayne TAFOYA 02/24 [facility] En[facility] [id number] 03/05 [facility] [place] [facility] OFFICE O/P EST MOD 30 MIN [id number] Diagnos is: ICD-10- CM M54.17 Radicul opathy, lumbosa cral region< br/> LAURIE MARCUM 03/24 [facility] En[facility] [id number] 05/01 [facility] OFF/OP EST MAY X REQ PHY/QHP [id number] 1. Diagnos is: ICD-10- CM I10 Essenti al (primar y) hyperte nsion<b r/> FLORESITA KEITH H 06/26 [facility] En[facility] [id number] 1.07/09 [facility] Encounter [id number] 1.08/27 [facility] Encounter [id number] 1.09/01 [facility] Encounter [id number] 1.09/01 [facility] [place] [facility] CLEAN/INSP ECT JOSE PART DENT [id number] Diagnos is: ICD-10- CM K03.6 Deposit s [accret ions] on teeth<b r/> Dewayne TAFOYA ADEZHDA 09/02 [facility] En[facility] [id number] 09/02 [facility] En[facility] [id number] 10/03 [facility] [place] [facility] Social History Combined list of available smoking, tobacco, and other social history from Department of Defense and Veterans Affairs facilities. Social History Type Response Date Comment Sourc e Tobacco smoking status GAIS [facility]-TOBACCO NEVER USED 03/24/2024 [facility] [place] [facility] History of tobacco use IN-TOBACCO FORMER USER 03/29/2023 [facility] [place] [facility] History of tobacco use IN-TOBACCO FORMER USER 02/10/2022 [facility] [place] [facility] History of tobacco use IN-TOBACCO FORMER USER 01/14/2021 [facility] [place] [facility] History of tobacco use IN-TOBACCO FORMER USER 12/23/2018 [facility] [place] [facility]23[facility]2018 [facility] [place] [facility] History of tobacco use LIFETIME NON-TOBACCO USER 06/22/2017 [facility] [place] [facility]
--- OUTSIDE RECORDS SUMMARY | 2024-11-17 09:11 | XMS_ITS | Patient Health Record ---
Author Organization Trevon Colby III, MD Address [address] [place] [address] [place] [address] Care Team Providers Care Elevators Inspector Name Role Phone Trevon Colby Primary Care Provider [phone] Allergies Allergen (clinical drug ingredient) Drug/Non Drug [...] date:02/28/2024 09:51:45 AM Interpretation: Performing Lab: Notes/Report: [address] [address] Ultrasound Report Signed Patient: Spencer Price MR#: [id number] : 1945 Acct:[id number] Age/Sex: 78 / M ADM Date: 02/07/24 Loc: HO.US Attending Dr: Rusty Bear MD Ordering Physician: Rusty Bear MD Date of Service: 02/07/24 Procedure(s): US NA complete Accession Number(s): [id number] cc: Trevon Colby MD; Rusty Bear MD [...] Superficial femoral artery (proximal): 149.9 cm/s, biphasic [place] inflow artery: PSV 113.1 cm/s. Biphasic waveform. Proximal stent: PSV 112.5 cm/s. Biphasic waveform. Mid stent: PSV 102.8 cm/s. Biphasic waveform. Distal stent: PSV 87.3 cm/s. Biphasic waveform. [place] outflow artery: PSV 92.6 cm/s. Biphasic waveform. [...] in OV> 02/10/24 1436 DD/ 1553 TD/TT: Convenience Store Manager: [place] [address] Ultrasound Report Signed Patient: Spencer Price MR#: [id number] : 1945 Acct:[id number] Age/Sex: 78 / M ADM Date: 02/07/24 Loc: .US Attending Dr: Rusty Bear MD Ordering Physician: Rusty Bear MD Date of Service: 02/07/24 Procedure(s): US NA complete Accession Number(s): [id number] cc: Trevon Colby MD; Rusty Bear MD [...] Superficial femoral artery (proximal): 149.9 cm/s, biphasic [place] inflow artery : PSV 113.1 cm/s. Biphasic waveform. Proximal stent: PSV 112.5 cm/s. Biphasic waveform. Mid stent: PSV 102.8 cm/s. Biphasic waveform. Distal stent: PSV 87 .3 cm/s. Biphasic waveform. [place] outflow arter y: PSV 92.6 cm/s. Biphasic [...] in OV> 02/10/24 1436 DD/ 1553 TD/TT: Convenience Store Manager: US arterial duplex LE BI Reviewed date:02/28/2024 09:51:45 AM Interpretation: Performing Lab: Notes/Report: [address] [address] Ultrasound Report Signed Patient: Spencer Price MR#: [id number] : 1945 Acct:[id number] Age/Sex: 78 / M ADM Date: 02/07/24 Loc: . Attending Dr: Rusty Bear MD Ordering Physician: Rusty Bear MD Date of Service: 02/07/24 Procedure(s): US arterial duplex LE BI Accession Number(s): [id number] cc: Trevon Colby MD; Rusty Bear MD [...] Superficial femoral artery (proximal): 149.9 cm/s, biphasic [place] inflow artery: PSV 113.1 cm/s. Biphasic waveform. Proximal stent: PSV 112.5 cm/s. Biphasic waveform. Mid stent: PSV 102.8 cm/s. Biphasic waveform. Distal stent: PSV 87.3 cm/s. Biphasic waveform. [place] outflow artery: PSV 92.6 cm/s. Biphasic waveform. [...] in OV> 02/10/24 1436 DD/ 1553 TD/TT: Convenience Store Manager: [place] [address] Ultrasound Report Signed Patient: Spencer Price MR#: [id number] : 1945 Acct:[id number] Age/Sex: 78 / M ADM Date: 02/07/24 Loc: . Attending Dr: Rusty Bear MD Ordering Physician: Rusty Bear MD Date of Service: 02/07/24 Procedure(s): US arterial duplex LE BI Accession Number(s): [id number] cc: Trevon Colby MD; Rusty Bear MD [...] Superficial femoral artery (proximal): 149.9 cm/s, biphasic [place] inflow artery : PSV 113.1 cm/s. Biphasic waveform. Proximal stent: PSV 112.5 cm/s. Biphasic waveform. Mid stent: PSV 102.8 cm/s. Biphasic waveform. Distal stent: PSV 87 .3 cm/s. Biphasic waveform. [place] outflow arter y: PSV 92.6 cm/s. Biphasic [...] in OV> 02/10/24 1436 DD/ 1553 TD/TT: Convenience Store Manager: Complete Blood Count Auto Di ff Reviewed date:02/28/2024 09:51:45 AM Interpretation: Performing Lab:[facility], [address] [place] [phone] Notes/Report: White Blood Count 4.4 4.8-10.8 X10*3/uL [...] NRBC Abs Auto 0.000 0.0-0.012 X10*3/uL Comprehensive Winger. Panel Fa st Reviewed date:02/28/2024 09:51:45 AM Interpretation: Performing Lab:[facility], [address] [place] [phone] Notes/Report: Sodium 138 135-145 mmol/L Potassium 4.5 3.3-5.1 mmol/L Chloride 105 96-108 mmol/L Carbon Dioxide 26 22-29 mmol/L Anion Gap 12 12-20 Blood Urea Nitrogen 43 9-16 mg/dL Creatinine 1.56 0.5-1.4 mg/dL Estimated Glomerular Filt Rate 43 NOTE: For -Mexican individuals, multiply the result by 1.210. Chronic [...] Panel Reviewed date:02/28/2024 09:51:45 AM Interpretation: Performing Lab:[facility], [address] [place] [phone] Notes/Report: Triglycerides 69 <150 mg/dL Desirable Triglyceride: [...] ff Reviewed date:04/22/2024 05:00:36 PM Interpretation: Performing Lab:[facility], [address] [place] [phone] Notes/Report: White Blood Count 5.2 4.8-10.8 X10*3/uL [...] NRBC Abs Auto 0.000 0.0-0.012 X10*3/uL Comprehensive [place]. Panel Fa st Reviewed date:04/22/2024 05:00:36 PM Interpretation: Performing Lab:[facility], [address] [place] [phone] Notes/Report: Sodium 137 135-145 mmol/L Potassium 4.3 3.3-5.1 mmol/L Chloride 104 96-108 mmol/L Carbon Dioxide 29 22-29 mmol/L Anion Gap 8 12-20 Blood Urea Nitrogen 35 9-16 mg/dL Creatinine 1.45 0.5-1.4 mg/dL Estimated Glomerular Filt Rate 47 NOTE: For -Mexican individuals, multiply the result by 1.210. Chronic [...] Panel Reviewed date:04/22/2024 05:00:36 PM Interpretation: Performing Lab:[facility], [address] [place] [phone] Notes/Report: Triglycerides 61 <150 mg/dL Desirable Triglyceride: [...] Antigen Reviewed date:04/22/2024 05:00:36 PM Interpretation: Performing Lab:[facility], [address] [place] [phone] Notes/Report: Prostate Specific Antigen 3.57 <0.05-4.0 ng/mL PSA methodology: Chavez Alinity i Chemiluminescent Microparticle Immunoassay (CMIA) XR lumbar spine 4V min Reviewed date:07/27/2024 05:58:52 AM Interpretation: Performing Lab: Notes/Report: [facility] [address] [place] [address] XRay Report Signed Patient: Spencer Price MR#: [id number] : 1945 Acct:[id number] Age/Sex: 78 / M ADM Date: 05/12/24 Loc: MELVIN Attending Dr: Vikram RUVALCABA Ordering Physician: Vikram Grant Date of Service: 05/12/24 Procedure(s): XR lumbar spine 4V min Accession Number(s): [id number] cc: Trevon Colby MD; Vikram Grant EXAMINATION: [...] in OV> 06/04/24 0711 DD/ 1534 TD/TT: Convenience Store Manager: [facility] [address] [place] [address] XRay Report Signed Patient: Spencer Price MR#: [id number] : 1945 Acct:[id number] Age/Sex: 78 / M ADM Date: 05/12/24 Loc: MELVIN Attending Dr: Vikram RUVALCABA Ordering Physician: Vikram Grant Date of Service: 05/12/24 Procedure(s): XR lum bar spine 4V min Accession Number(s): [id number] cc: Trevon Colby MD; Vikram Grant EXAMINATION: [...] in OV> 06/04/24 0711 DD/ 1534 TD/TT: Convenience Store Manager: MR lumbar spine wo con Reviewed date:07/27/2024 05:58:52 AM Interpretation: Performing Lab: Notes/Report: [address] [address] Magnetic Resonance Report Signed Patient: Spencer Price MR#: [id number] : 1945 Acct:[id number] Age/Sex: 78 / M ADM Date: 05/27/24 Loc: HO.MRI Attending Dr: Vikram RUVALCABA Ordering Physician: Vikram Grant Date of Service: 05/27/24 Procedure(s): MR lumbar spine wo con Accession Number(s): [id number] cc: Trevon Colby MD; Vikram Grant EXAMINATION: [...] in OV> 06/05/24 1505 DD/ 1510 TD/TT: Convenience Store Manager: [place] [address] Magnetic Resonance Report Signed Patient: Spencer Price MR#: [id number] : 1945 Acct:[id number] Age/Sex: 78 / M ADM Date: 05/27/24 Loc: HO.MRI Attending Dr: Vikram RUVALCABA Ordering Physician: Vikram Grant Date of Service: 05/27/24 Procedure(s): MR lum bar spine wo con Accession Number(s): [id number] cc: Trevon Colby MD; Vikram Grant EXAMINATION: MR LUMBAR SPINE WITH OUT CONTRAST CLINICAL INFORMATION: Low back pain, lumba r radiculopathy COMPARISON: MRI lumbar spine on 06/07/2023 TECHNIQUE: MRI of the lumbar sp ine was obtained using routine sequences without contrast. FINDINGS: T9-T10 and T10-T11 moderate degenerative thoracic disc disease, mild rhinologist ior disc protrusions are seen. The visualized [...] in OV> 06/05/24 1505 DD/ 1510 TD/TT: Convenience Store Manager: Complete Blood Count Auto Di ff Reviewed date:07/27/2024 05:58:52 AM Interpretation: Performing Lab:[facility], [address] [place] [phone] Notes/Report: White Blood Count 5.0 4.8-10.8 X10*3/uL [...] NRBC Abs Auto 0.000 0.0-0.012 X10*3/uL Comprehensive Winger. Panel Fa st Reviewed date:07/27/2024 05:58:52 AM Interpretation: Performing Lab:[facility], [address] [place] [phone] Notes/Report: Sodium 137 135-145 mmol/L Potassium 4.8 3.3-5.1 mmol/L Chloride 106 96-108 mmol/L Carbon Dioxide 26 22-29 mmol/L Anion Gap 10 12-20 Blood Urea Nitrogen 32 9-16 mg/dL Creatinine 1.48 0.5-1.4 mg/dL Estimated Glomerular Filt Rate 46 NOTE: For -Mexican individuals, multiply the result by 1.210. Chronic [...] Panel Reviewed date:07/27/2024 05:58:52 AM Interpretation: Performing Lab:[facility], [address] [place] [phone] Notes/Report: Triglycerides 60 <150 mg/dL Desirable Triglyceride: [...] Antigen Reviewed date:07/27/2024 05:58:52 AM Interpretation: Performing Lab:[facility], [address] [place] [phone] Notes/Report: Prostate Specific Antigen 2.80 <0.05-4.0 ng/mL PSA methodology: Chavez Alinity i Chemiluminescent Microparticle Immunoassay (CMIA) Type and Screen Reviewed date:09/07/2024 06:31:42 AM Interpretation: Performing Lab:[facility], [address] [place] [phone] Notes/Report: WITNESSED BY THEW NURSING: Call Blood Bank (ext. [phone]) to band patient on admission. Type and Screen in effect until 2300 on 09-17-2024 Spec expiration changed by SHOBHA on 09/03/24 Reason: PAT SPEC 09/17/24 Blood Type OP Antibody Screen NEGATIVE Glucose, Whole Blood Reviewed date:09/18/2024 09:17:25 AM Interpretation: Performing Lab:[facility], [address] [place] [phone] Notes/Report: Glucose, Whole Blood 178 60-115 mg/dL METER # : [id number] FL guidance in OR Reviewed date:09/23/2024 08:42:28 AM Interpretation: Performing Lab: Notes/Report: [address] [address] Fluoroscopy Report Signed Patient: Spencer Price MR#: [id number] : 1945 Acct:[id number] Age/Sex: 79 / M ADM Date: 09/17/24 Loc: S3 344-[address]: Vikram RUVALCABA Ordering Physician: George Baltazar MD, PhD Date of Service: 09/17/24 Procedure(s): FL guidance in OR Accession Number(s): [id number] cc: Trevon Colby MD; George Baltazar MD, [...] by: Gillian Onofre MD 09/18/2024 12:40 PM [facility] Dictated By: Gillian Onofre MD Signed By: <Electronically signed by Gillian Onofre MD in OV> 09/18/24 1240 DD/ 0740 TD/TT: 09/17/24 1025 Convenience Store Manager: KAIDEN [address] [address] Fluoroscopy Report Signed Patient: Spencer Price MR#: [id number] : 1945 Acct:[id number] Age/Sex: 79 / M ADM Date: 09/17/24 Loc: .S3 344-[address]: Vikram RUVALCABA Ordering Physician: George Baltazar MD, PhD Date of Service: 09/17/24 Procedure(s): FL guidance in OR Accession Number(s): [id number] cc: Trevon Colby MD; George Baltazar MD, [...] by: Gillian Onofre MD 09/18/2024 12:40 PM [facility] Dictated By: Gillian Onofre MD Signed By: <Electronically signed by Gillian Onofre MD in OV> 09/18/24 1240 DD/ 0740 TD/TT: 09/17/24 1025 Convenience Store Manager: KAIDEN Complete Blood Count Auto Di ff Reviewed date:09/23/2024 08:42:28 AM Interpretation: Performing Lab:[facility], [address] [place] [phone] Notes/Report: White Blood Count 11.7 4.8-10.8 X10*3/uL [...] Problem Status W/U Status Risk Notes Problem 4884854 Former smoker (Z87.891) Active confirmed He is highly motivated not to smoke and we discussed means of preserving abstinence in times of stress. Problem 35428073 Hyperlipidemia (E78.5) Active confirmed His total cholesterol level is 120. His lipids are in near target range. No change in his medications was made. His lipids were reviewed. He will have fasting lipid profile in the near future. Problem 702606266 Overweight (E66.3) Active confirmed He weighs 170 pounds. His body mass index is 27. He has gained 3 pounds since his last visit. We reviewed his weight loss strategy and discussed this. Problem 436807887 Tubular adenoma (D36.9) Active confirmed He will continue to undergo colonoscopies every 5 years. Problem 49063540 Carpal tunnel syndrome, right upper limb (G56.01) Active confirmed He has seen the orthopedic surgeon and will undergo surgery for carpal tunnel syndrome on the right later this month. He is cleared for surgery at this time. Problem 87904111 Coronary artery disease (I25.10) Active confirmed He has had no recent palpitations, angina, syncope or nausea. He has been compliant with all of his medications. He saw his private branch exchange installer this month who found him to be stable and gave him an appointment to return in one year. Problem 721905642 BPH (benign prostatic hyperplasia) (N40.0) Active confirmed He arises from sleep once or twice a night to urinate. We have discussed lifestyle modifications he could make to reduce nocturia. Problem 506839830 Peripheral vascular disease (I73.9) Active confirmed He [...] and was thought to be stable. 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 He has an upcoming appointment with a neurosurgeon at the end of this month. Problem 870467450 Erectile dysfunction (N52.9) Active confirmed This is well compensated with medications. Problem 205802973 Osteoarthritis of right hip (M16.11) Active confirmed He continues to have the same pain in his right hip with walking. He is able to ambulate but it is difficult. He does not wish to consider a surgical approach. Problem 87814972 Spinal stenosis, lumbar (M48.06) Active confirmed The lumbar fusiontook place without side effects or incidents. He notices a substantial improvement in his back pain. The wound is well-healed. He reports much less pain with ambulation. 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 The discomfort has resolved. Problem Pulmonary emphysema (49655750) Emphysema lung (J43.9) Active confirmed He is no longer smoking. He is short of breath with sustained exertion but is comfortable breathing room air at rest. Problem 244228486 History of bladder cancer (Z85.51) Active confirmed There was no sign of cancer on his exam today. He recently had a cystoscopy, March 2024 which showed no gross recurrence. Surveillance will continue Problem 796064120 Stage 2 chronic kidney disease (N18.2) Active [...] Date Provider Diagnosis Trevon Colby III, MD [address] [place] [address] [place] [phone] 11/29/2023 Trevon Colby Hyperlipidemia E78.5 ; Overweight E66.3 ; Osteoarthritis of right hip M16.11 ; Spinal stenosis, lumbar M48.06 ; History of bladder cancer Z85.51 ; Peripheral vascular disease I73.9 and Coronary artery disease I25.10 Trevon Colby III, MD [address] [place] [address] [place] [phone] 02/28/2024 Trevon Cobly Hyperlipidemia E78.5 ; BPH (benign prostatic hyperplasia) N40.0 ; Peripheral vascular disease I73.9 ; Stage 2 chronic kidney disease N18.2 ; Osteoarthritis of right hip M16.11 ; Spinal stenosis, lumbar M48.06 ; History of bladder cancer Z85.51 ; Former smoker Z87.891 ; Ulnar nerve entrapment at left ulnar grove G56.22 and Emphysema lung J43.9 Trevon Colby III, MD [address] [place] [address] [place] [phone] 05/01/2024 Trevon Colby Hyperlipidemia E78.5 ; Overweight E66.3 ; BPH (benign prostatic hyperplasia) N40.0 ; Former smoker Z87.891 ; History of bladder cancer Z85.51 ; Osteoarthritis of right hip M16.11 ; Peripheral vascular disease I73.9 ; Spinal stenosis, lumbar M48.06 ; Coronary artery disease I25.10 ; Emphysema lung J43.9 and Stage 2 chronic kidney disease N18.2 Trevon Colby III, MD [address] [place] [address] [place] [phone] 08/01/2024 Trevon Colby Hyperlipidemia E78.5 ; Osteoarthritis of right hip M16.11 ; Overweight E66.3 ; Spinal stenosis, lumbar M48.06 ; Carpal tunnel syndrome, right upper limb G56.01 ; Peripheral vascular disease I73.9 ; History of bladder cancer Z85.51 and Stage 2 chronic kidney disease N18.2 Trevon Colby III, MD [address] [place] [address] [place] [phone] 10/13/2024 Trevon Colby Hyperlipidemia E78.5 ; Spinal [...] all of his medications. He saw his private branch exchange installer this month who found him to be stable and gave him an appointment to return in one year. 10/13/2024 Coronary artery disease (ICD-10 - I25.10) He has had no recent palpitations, angina, syncope or nausea. He has been compliant with all of his medications. He saw his private branch exchange installer this month who found him to be [...] Provider Name:Trevon Colby, 02/11/2025 10:00:00 AM, [address] [facility] [address], [place], [phone], Provider Name:Trevon Colby, 05/05/2025 09:30:00 AM, [address] [facility] [address], [place], [phone], Insurance Providers Payer Name Payer Address Payer Phone Subscriber Number Group Number Insured Name Patient Relationship to Insured Coverage Start Date Coverage End Date [employer] [address] [place], [place] [phone] [id number] Spencer Price Self - patient is the [...] 17 Surgical History Surgery Date(Month/Year) L3-L5 fusion [facility] 09/18/2024 Left femoral endarterectomy, right superficial Femoral artery atherectomy and angioplasty 06/2018 Right popliteal and peroneal artery athe rectomy and angioplasty 12/2017 Angioplasty right peroneal and popliteal artery 04/13/2021 Lumbar L3-5 Laminectomy, par tial facetectomy, foraminotomy, [facility], Dr Baltazar 10/25/[address] Bear 04/2021 [...]
--- OUTSIDE RECORDS SUMMARY | 2024-11-17 09:11 | XMS_ITS ---
Author Organization Trevon Colby III, MD Address [address] [place] [address] [address] [facility] [place] [address] Care Team Providers Care Fats And Oils Loader Name Role Phone Trevon Colby Primary Care Provider [phone] Allergies Allergen (clinical drug ingredient) Drug/Non Drug [...] Date Provider Diagnosis Trevon Colby III, MD [address] [place] [address] [place] [address] 08/01/2024 Trevon Colby Hyperlipidemia E78.5 ; Osteoarthritis [...] OV Provider Name:Trevon Colby, 02/11/2025 10:00:00 AM, [address] [place] [address] [address], [place], [address], Provider Name:Trevon Colby, 05/05/2025 09:30:00 AM, [address] [place] [address] [place], [phone], Progress Notes * Spencer PRICEDOB:[birth year] (79 yo M)Acc No.[id number]:08/01/2024 Progress Notes Patient:?DarylSpencer meza Provider:?Trevon Colby MD :1945???Age:79 Y???Sex:Male Blas e:08/01/2024 Address:[address], [id number] Subjective: * Chief Complaints: * ???Peripheral vascular [...] April of this year he saw his cabin cleaning supervisor who gave him a one-year follow-up appointment. [...] Bear 1Lumbar L3-5 Laminectomy, partial facetectomy, foraminotomy, [facility], Dr Baltazar 3Angioplasty right peroneal and [...] 52 (Ref Range: >40 mg/dL) * Lab:[facility] * Order Date 07/24/2024 [...] Colby MD Date:?07/14 Generated for Printi ng/Faradhamesg/eTransmitting on:?11/17/2024 09:10 AM EST History and Physical Notes * [...]
--- OUTSIDE RECORDS SUMMARY | 2024-11-17 09:11 | XMS_ITS ---
Author Organization Trevon Colby III, MD Address [address] [place] [address] [address] [place] [address] Care Team Providers Care Internet Sales Consultant Name Role Phone Trevon Colby Primary Care [...] Date Provider Diagnosis Trevon Colby III, MD [address] [place] [address] [address], [place] [address] 10/13/2024 Trevon Colby Hyperlipidemia E78.5 ; Spinal [...] all of his medications. He saw his cloth bolt bander this month who found him to be [...] OV Provider Name:Trevon Colby, 02/11/2025 10:00:00 AM, [address] [place] [address] [address], [place], [address], Provider Name:Trevon Colby, 05/05/2025 09:30:00 AM, [address] [place] [address] [address], [place], [phone], Progress Notes * Spencer PR[birth year]EDOB:[birth year] (79 yo M)Acc No.[id number]:10/13/2024 Progress Notes Patient:?Spencer PRICE Provider:?Trevon Colby MD :1945???Age:79 Y???Sex:Male Blas e:10/13/2024 Address:[address] [place], [place] [phone] Subjective: * Chief Complaints: * ???Recent back [...] measured at 133/60. He was admitted to [facility] September 16, 2024 and underwent a [...] Bear 1Lumbar L3-5 Laminectomy, partial facetectomy, foraminotomy, [facility], Dr Baltazar 10/25/2023ngioplasty right peroneal and popliteal artery 04/13/2021ight popliteal and peroneal artery atherectomy and angioplasty 12/2017Left femoral endarterectomy, right superficial Femoral artery atherectomy and angioplasty 06/20181342U9-G9 fusion [facility] 09/18/2024 * Hospitalization/Major Diagno stic Procedure:?Back surgery [...] all of his medications. He saw his cloth bolt bander this month who found him to be [...] Colby MD Date:?12/2023 Generated for Allison jimenez/Bhavin/Demetriaitting on:?11/17/2024 09:10 AM EST History and Physical Notes * HPI (History of Present Illness) Category Sub-Category Detail Notes COVID-19 Screening Questions Have you had any new onset fever, chills, cough, congestion, sore throat, shortness of breath, muscle aches?: No Have you been exposed to the virus withi n the last 10 days?: No Have you travelled internationally in [facility] last 10 days?: No Have you [...]
--- OUTSIDE RECORDS SUMMARY | 2024-11-17 09:11 | XMS_ITS ---
Author Organization Trevon Colby III, MD Address [address] [place] [address] DR AZUL Carmela [facility] [place] [address] Care Team Providers Care Bulldozer Engineer Name Role Phone Trevon Colby Primary Care [...] Date Provider Diagnosis Trevon Colby III, MD [address] [place] [address] [place] [address] 05/01/2024 Trevon Colby Hyperlipidemia E78.5 ; Overweight [...] all of his medications. He saw his encephalographer this month who found him to be [...] OV Provider Name:Trevon Colby, 02/11/2025 10:00:00 AM, [address] [place] [address] [address] AL[address] D[address]ELSON, [place], [address], Provider Name:Trevon Colby, 05/05/2025 09:30:00 AM, [address] [place] [address] JORGE ALBERTO DANIELSON, [place], [address], Progress Notes * Spencer PR[birth year]EDOB:[birth year] (79 yo M)Acc No.[id number]:05/01/2024 Progress Notes Patient:?Spencer Price Provider:?Trevon Colby MD :1945???Age:78 Y???Sex:Male Blas e:05/01/2024 Address:[address] [place], [place] [phone] Subjective: * Chief Complaints: * ???Annual Exam * HPI: ???Depression Screening:? He returns to the office at the age of 82 his annual physical examination. On October 25, 2023 at [facility] he underwent an L3-L4 and L4-L5 [...] On May 01, 2024 he saw his encephalographer, Dr. Armstrong, who thought him to be [...] Bear 1Lumbar L3-5 Laminectomy, partial facetectomy, foraminotomy, [facility], Dr Baltazar 3Angioplasty right peroneal and [...] all of his medications. He saw his encephalographer this month who found him to be [...] * ?BLD Negative Negative - * Procedure Codes:?88939 URINE -NO MICRO * Preventive Medicine:? ??Counseling:?Care [...] Colby MD Date:?04/13 Generated for Allison jimenez/Bhavin/Demetriaitting on:?11/17/2024 09:11 AM EST History and Physical Notes * [...] days?: No Have you travelled internationally in [facility] last 10 days?: No Have you been [...]
== END 2024-11-17 09:32 | disposition home or self-care (01) ==
PROVIDERS: PCP Internal Medicine Medical Oncology; Visit Provider Physician Assistant
DX: Z98.890 Other specified postprocedural states (principal)
CPT/HCPCS: 99024

== ENCOUNTER 2024-11-17 08:45 | Outpatient (REF) | payer OTHER, SELFPAY ==
--- NOTE | ~2024-11-17 | XR_ITS ---
. EXAMINATION: X-ray lumbosacral spine. CLINICAL INFORMATION: Spondylolisthesis, lumbar region. COMPARISON: X-ray dated October 02, 2024. TECHNIQUE: Lateral views in neutral, flexion and extension position. AP view. FINDINGS: Metallic hardware placed with the transverse pedicle screws from L2 to L5, bilaterally. Status post intervertebral disc spacer placement at L2-3, L3-4 and L4-5 levels. Dextroconvex curvature of the lumbar spine. No gross malalignment during flexion and/or extension position. Metallic prosthesis, right hip no fully included. Vascular complications, thoracic and abdominal aorta and iliac arteries. XR/XR lumbar spine 4V min IMPRESSION: No acute fracture or instability. Electronically signed by: Akshat Jiang MD 11/19/2024 01:05 PM JOSE AVENDAÑO
== END 2024-11-17 08:46 | disposition home or self-care (01) ==
LOC: HO.HOSX 08:45
PROVIDERS: PCP Internal Medicine Medical Oncology; Visit Provider Physician Assistant
DX: M43.16 Spondylolisthesis, lumbar region (principal); Z98.890 Other specified postprocedural states
CPT/HCPCS: 72110; 99212

== ENCOUNTER → 2024-11-19 12:20 | Outpatient (BNV) | payer MEDICARE, SELFPAY | PROVIDERS: PCP Internal Medicine Medical Oncology; Visit Provider Radiology Diagnostic Radiology | DX: Z98.1 Arthrodesis status (principal) | CPT/HCPCS: 72158 ==

== ENCOUNTER 2024-11-19 12:21 | Outpatient (REF) | payer MEDICARE, SELFPAY ==
--- NOTE | ~2024-11-19 | MR_ITS ---
EXAMINATION: MR LUMBAR SPINE WITHOUT AND WITH CONTRAST CLINICAL INFORMATION: Status post lumbar fusion, 2 months ago. Numbness, left foot. COMPARISON: MRI dated May 27, 2024. TECHNIQUE: MRI of the lumbar spine was obtained using routine sequences with and without contrast. Intravenous contrast: Gadavist 8 mL. No reported immediate complications FINDINGS: Submitted for interpretation on November 24, 2024. Last rib-bearing vertebra labeled T12. Paramagnetic field distortion secondary to metallic hardware, L2 L5 levels. Dextroconvex rotoscoliosis apex at L2-3. No abnormal enhancement within the neural elements of the thecal sac. No abnormal enhancement in the prevertebral compartment. No bone marrow STIR signal abnormality. Multilevel disc desiccation and marginal osteophyte formation, L1-S1. There is a 6 mm anterolisthesis at L5-S1. Grade 1 retrolisthesis, L1-2. Intervertebral discs spacers placement, L2-3, L3-4 and L4-5. Conus medullaris ends at inferior endplate of T12 with normal signal. There is no grouping or clumping of the neural elements of the thecal sac. There is no empty sac sign. T12-L1: No disc herniation. No neuroforamina stenosis. L1-2: Broad-based disc bulging. Hypertrophy of ligamentum flavum and the facet joints. Decreased diameter of the thecal sac and the neural foramina. L2-3: Postsurgical changes. Facet joint hypertrophy. Hypertrophy of the right ligamentum flavum. Decreased AP diameter of the thecal sac and the neural foramina. L3-4: Post surgical changes. Bilateral neuroforamina narrowing, left greater than the right side likely encroaching the neural elements. No gross central spinal canal stenosis. L4-5: Postsurgical changes. Decreased AP diameter of the thecal sac and the neural foramina likely encroaching the neural elements. L5-S1: Grade 1 anterolisthesis resulting in bilateral neuroforamina stenosis encroaching the exiting nerve roots. Reduced AP diameter of the thecal sac. No prevertebral compartment hematoma, mass or fluid collection. Asymmetric volume loss right psoas iliac muscle. Multifocal cystic lesions in the right kidney. Numerous diverticula, sigmoid colon. MR/MR lumbar spine wo/w con IMPRESSION: Multilevel lumbar spondylosis resulting in central spinal canal and bilateral neuroforamina stenosis at L4-5 and bilateral neuroforamina stenosis at L1-2, L2-3 and L3-4 levels encroaching the exiting nerve roots. Grade 1 anterolisthesis L5-S1, stable. Grade 1 retrolisthesis L1-2. No arachnoiditis by imaging. No abnormal enhancement.. Electronically signed by: Akshat Jiang MD 11/24/2024 09:53 AM EST
--- OUTSIDE RECORDS SUMMARY | 2024-11-19 12:28 | XMS_ITS | Patient Health Record ---
Author Organization Trevon Colby III, MD Address [address] [place] [address] [place] [address] Care Team Providers Care Sql Server Bi Developer Name Role Phone Trevon Colby Primary Care [...] date:02/28/2024 09:51:45 AM Interpretation: Performing Lab: Notes/Report: [address] [address] Ultrasound Report Signed Patient: Spencer Price MR#: [id number] : 1945 Acct:[id number] Age/Sex: 78 / M ADM Date: 02/07/24 Loc: HO.US Attending Dr: Rusty Bear MD Ordering Physician: Rusty Bear MD Date of Service: 02/07/24 Procedure(s): US NA complete Accession Number(s): [id number] cc: Trevon Colby MD; Rusty Bear MD [...] Superficial femoral artery (proximal): 149.9 cm/s, biphasic [place] inflow artery: PSV 113.1 cm/s. Biphasic waveform. Proximal stent: PSV 112.5 cm/s. Biphasic waveform. Mid stent: PSV 102.8 cm/s. Biphasic waveform. Distal stent: PSV 87.3 cm/s. Biphasic waveform. [place] outflow artery: PSV 92.6 cm/s. Biphasic waveform. [...] in OV> 02/10/24 1436 DD/ 1553 TD/TT: Voice Engineer: [place] [id number] Ultrasound Report Signed Patient: Spencer Price MR#: [id number] : 1945 Acct:[id number] Age/Sex: 78 / M ADM Date: 02/07/24 Loc: .US Attending Dr: Rusty Bear MD Ordering Physician: Rusty Bear MD Date of Service: 02/07/24 Procedure(s): US NA complete Accession Number(s): [id number] cc: Trevon Colby MD; Rusty Bear MD [...] Superficial femoral artery (proximal): 149.9 cm/s, biphasic [place] inflow artery : PSV 113.1 cm/s. Biphasic waveform. Proximal stent: PSV 112.5 cm/s. Biphasic waveform. Mid stent: PSV 102.8 cm/s. Biphasic waveform. Distal stent: PSV 87 .3 cm/s. Biphasic waveform. [place] outflow arter y: PSV 92.6 cm/s. Biphasic [...] in OV> 02/10/24 1436 DD/ 1553 TD/TT: Voice Engineer: US arterial duplex LE BI Reviewed date:02/28/2024 09:51:45 AM Interpretation: Performing Lab: Notes/Report: [address] [address] Ultrasound Report Signed Patient: Spencer Price MR#: [id number] : 1945 Acct:[id number] Age/Sex: 78 / M ADM Date: 02/07/24 Loc: . Attending Dr: Rusty Bear MD Ordering Physician: Rusty Bear MD Date of Service: 02/07/24 Procedure(s): US arterial duplex LE BI Accession Number(s): [id number] cc: Trevon Colby MD; Rusty Bear MD [...] Superficial femoral artery (proximal): 149.9 cm/s, biphasic [place] inflow artery: PSV 113.1 cm/s. Biphasic waveform. Proximal stent: PSV 112.5 cm/s. Biphasic waveform. Mid stent: PSV 102.8 cm/s. Biphasic waveform. Distal stent: PSV 87.3 cm/s. Biphasic waveform. [place] outflow artery: PSV 92.6 cm/s. Biphasic waveform. [...] in OV> 02/10/24 1436 DD/ 1553 TD/TT: Voice Engineer: [place] [id number] Ultrasound Report Signed Patient: Spencer Price MR#: [id number] : 1945 Acct:[id number] Age/Sex: 78 / M ADM Date: 02/07/24 Loc: . Attending Dr: Rusty Bear MD Ordering Physician: Rusty Bear MD Date of Service: 02/07/24 Procedure(s): US arterial duplex LE BI Accession Number(s): [id number] cc: Trevon Colby MD; Rusty Bear MD [...] Superficial femoral artery (proximal): 149.9 cm/s, biphasic [place] inflow artery : PSV 113.1 cm/s. Biphasic waveform. Proximal stent: PSV 112.5 cm/s. Biphasic waveform. Mid stent: PSV 102.8 cm/s. Biphasic waveform. Distal stent: PSV 87 .3 cm/s. Biphasic waveform. [place] outflow arter y: PSV 92.6 cm/s. Biphasic [...] in OV> 02/10/24 1436 DD/ 1553 TD/TT: Voice Engineer: Complete Blood Count Auto Di ff Reviewed date:02/28/2024 09:51:45 AM Interpretation: Performing Lab:[facility], [address] [place] [phone] Notes/Report: White Blood Count 4.4 4.8-10.8 X10*3/uL [...] NRBC Abs Auto 0.000 0.0-0.012 X10*3/uL Comprehensive [place]. Panel Fa st Reviewed date:02/28/2024 09:51:45 AM Interpretation: Performing Lab:[facility], [address] [place] [phone] Notes/Report: Sodium 138 135-145 mmol/L Potassium 4.5 3.3-5.1 mmol/L Chloride 105 96-108 mmol/L Carbon Dioxide 26 22-29 mmol/L Anion Gap 12 12-20 Blood Urea Nitrogen 43 9-16 mg/dL Creatinine 1.56 0.5-1.4 mg/dL Estimated Glomerular Filt Rate 43 NOTE: For -Afghan individuals, multiply the result by 1.210. Chronic [...] Panel Reviewed date:02/28/2024 09:51:45 AM Interpretation: Performing Lab:[facility], [address] [place] [phone] Notes/Report: Triglycerides 69 <150 mg/dL Desirable Triglyceride: [...] ff Reviewed date:04/22/2024 05:00:36 PM Interpretation: Performing Lab:[facility], [address] [place] [phone] Notes/Report: White Blood Count 5.2 4.8-10.8 X10*3/uL [...] NRBC Abs Auto 0.000 0.0-0.012 X10*3/uL Comprehensive [place]. Panel Fa st Reviewed date:04/22/2024 05:00:36 PM Interpretation: Performing Lab:[facility], [address] [place] [phone] Notes/Report: Sodium 137 135-145 mmol/L Potassium 4.3 3.3-5.1 mmol/L Chloride 104 96-108 mmol/L Carbon Dioxide 29 22-29 mmol/L Anion Gap 8 12-20 Blood Urea Nitrogen 35 9-16 mg/dL Creatinine 1.45 0.5-1.4 mg/dL Estimated Glomerular Filt Rate 47 NOTE: For -Afghan individuals, multiply the result by 1.210. Chronic [...] Panel Reviewed date:04/22/2024 05:00:36 PM Interpretation: Performing Lab:[facility], [address] [place] [phone] Notes/Report: Triglycerides 61 <150 mg/dL Desirable Triglyceride: [...] Antigen Reviewed date:04/22/2024 05:00:36 PM Interpretation: Performing Lab:[facility], [address] [place] [phone] Notes/Report: Prostate Specific Antigen 3.57 <0.05-4.0 ng/mL PSA methodology: Chavez Alinity i Chemiluminescent Microparticle Immunoassay (CMIA) XR lumbar spine 4V min Reviewed date:07/27/2024 05:58:52 AM Interpretation: Performing Lab: Notes/Report: [facility] [address] [place] [address] XRay Report Signed Patient: Spencer Price MR#: [id number] : 1945 Acct:[id number] Age/Sex: 78 / M ADM Date: 05/12/24 Loc: MELVIN Attending Dr: Vikram RUVALCABA Ordering Physician: Vikram Grant Date of Service: 05/12/24 Procedure(s): XR lumbar spine 4V min Accession Number(s): [id number] cc: Trevon Colby MD; Vikram Grant EXAMINATION: [...] in OV> 06/04/24 0711 DD/ 1534 TD/TT: Voice Engineer: [facility] [address] [place] [address] XRay Report Signed Patient: Spencer Price MR#: [id number] : 1945 Acct:[id number] Age/Sex: 78 / M ADM Date: 05/12/24 Loc: MELVIN Attending Dr: Vikram RUVALCABA Ordering Physician: Vikram Grant Date of Service: 05/12/24 Procedure(s): XR lum bar spine 4V min Accession Number(s): [id number] cc: Trevon Colby MD; Vikram Grant EXAMINATION: [...] in OV> 06/04/24 0711 DD/ 1534 TD/TT: Voice Engineer: MR lumbar spine wo con Reviewed date:07/27/2024 05:58:52 AM Interpretation: Performing Lab: Notes/Report: [address] [address] Magnetic Resonance Report Signed Patient: Spencer Price MR#: [id number] : 1945 Acct:[id number] Age/Sex: 78 / M ADM Date: 05/27/24 Loc: HO.MRI Attending Dr: Vikram RUVALCABA Ordering Physician: Vikram Grant Date of Service: 05/27/24 Procedure(s): MR lumbar spine wo con Accession Number(s): [id number] cc: Trevon Colby MD; Vikram Grant EXAMINATION: [...] in OV> 06/05/24 1505 DD/ 1510 TD/TT: Voice Engineer: [place] [id number] Magnetic Resonance Report Signed Patient: Spencer Price MR#: [id number] : 1945 Acct:[id number] Age/Sex: 78 / M ADM Date: 05/27/24 Loc: HO.MRI Attending Dr: Vikram RUVALCABA Ordering Physician: Vikram Grant Date of Service: 05/27/24 Procedure(s): MR lum bar spine wo con Accession Number(s): [id number] cc: Trevon Colby MD; Vikram Grant EXAMINATION: MR LUMBAR SPINE WITH OUT CONTRAST CLINICAL INFORMATION: Low back pain, lumba r radiculopathy COMPARISON: MRI lumbar spine on 06/07/2023 TECHNIQUE: MRI of the lumbar sp ine was obtained using routine sequences without contrast. FINDINGS: T9-T10 and T10-T11 moderate degenerative thoracic disc disease, mild salvage mechanic ior disc protrusions are seen. The visualized [...] in OV> 06/05/24 1505 DD/ 1510 TD/TT: Voice Engineer: Complete Blood Count Auto Di ff Reviewed date:07/27/2024 05:58:52 AM Interpretation: Performing Lab:[facility], [address] [place] [phone] Notes/Report: White Blood Count 5.0 4.8-10.8 X10*3/uL [...] NRBC Abs Auto 0.000 0.0-0.012 X10*3/uL Comprehensive [place]. Panel Fa st Reviewed date:07/27/2024 05:58:52 AM Interpretation: Performing Lab:[facility], [address] [place] [phone] Notes/Report: Sodium 137 135-145 mmol/L Potassium 4.8 3.3-5.1 mmol/L Chloride 106 96-108 mmol/L Carbon Dioxide 26 22-29 mmol/L Anion Gap 10 12-20 Blood Urea Nitrogen 32 9-16 mg/dL Creatinine 1.48 0.5-1.4 mg/dL Estimated Glomerular Filt Rate 46 NOTE: For -Afghan individuals, multiply the result by 1.210. Chronic [...] Panel Reviewed date:07/27/2024 05:58:52 AM Interpretation: Performing Lab:[facility], [address] [place] [phone] Notes/Report: Triglycerides 60 <150 mg/dL Desirable Triglyceride: [...] Antigen Reviewed date:07/27/2024 05:58:52 AM Interpretation: Performing Lab:[facility], [address] [place] [phone] Notes/Report: Prostate Specific Antigen 2.80 <0.05-4.0 ng/mL PSA methodology: Chavez Alinity i Chemiluminescent Microparticle Immunoassay (CMIA) Type and Screen Reviewed date:09/07/2024 06:31:42 AM Interpretation: Performing Lab:[facility], [address] [place] [phone] Notes/Report: WITNESSED BY [facility]W NURSING: Call Blood Bank (ext. [phone]) to band patient on admission. Type and Screen in effect until 2300 on 09-17-2024 Spec expiration changed by SHOBHA on 09/03/24 Reason: PAT SPEC 09/17/24 Blood Type OP Antibody Screen NEGATIVE Glucose, Whole Blood Reviewed date:09/18/2024 09:17:25 AM Interpretation: Performing Lab:[facility], [address] [place] [phone] Notes/Report: Glucose, Whole Blood 178 60-115 mg/dL METER # : [id number] FL guidance in OR Reviewed date:09/23/2024 08:42:28 AM Interpretation: Performing Lab: Notes/Report: [address] [address] Fluoroscopy Report Signed Patient: Spencer Price MR#: [id number] : 1945 Acct:[id number] Age/Sex: 79 / M ADM Date: 09/17/24 Loc: S3 344-[address]: Vikram RUVALCABA Ordering Physician: George Baltazar MD, PhD Date of Service: 09/17/24 Procedure(s): FL guidance in OR Accession Number(s): [id number] cc: Trevon Colby MD; George Baltazar MD, [...] Gillian Onofre MD 09/18/2024 12:40 PM [facility] Dictated By: Gillian Onofre MD Signed By: <Electronically signed by Gillian Onofre MD in OV> 09/18/24 1240 DD/ 0740 TD/TT: 09/17/24 1025 Voice Engineer: KAIDEN [address] [address] Fluoroscopy Report Signed Patient: Spencer Price MR#: [id number] : 1945 Acct:[id number] Age/Sex: 79 / M ADM Date: 09/17/24 Loc: .S3 344-[address]: Vikram RUVALCABA Ordering Physician: George Baltazar MD, PhD Date of Service: 09/17/24 Procedure(s): FL guidance in OR Accession Number(s): [id number] cc: Trevon Colby MD; George aBltazar MD, PhD EXAMINATION: FLUOROSCOPY GUIDANCE FOR NEEDLE [...] Gillian Onofre MD 09/18/2024 12:40 PM [facility] Dictated By: Gillian Onofre MD Signed By: <Electronically signed by Gillian Onofre MD in OV> 09/18/24 1240 DD/ 0740 TD/TT: 09/17/24 1025 Voice Engineer: KAIDEN Complete Blood Count Auto Di ff Reviewed date:09/23/2024 08:42:28 AM Interpretation: Performing Lab:[facility], [address] [place] [phone] Notes/Report: White Blood Count 11.7 4.8-10.8 X10*3/uL [...] Problem Status W/U Status Risk Notes Problem 3880963 Former smoker (Z87.891) Active confirmed He is highly motivated not to smoke and we discussed means of preserving abstinence in times of stress. Problem 67561022 Hyperlipidemia (E78.5) Active confirmed His total cholesterol level is 120. His lipids are in near target range. No change in his medications was made. His lipids were reviewed. He will have fasting lipid profile in the near future. Problem 783459766 Overweight (E66.3) Active confirmed He weighs 170 pounds. His body mass index is 27. He has gained 3 pounds since his last visit. We reviewed his weight loss strategy and discussed this. Problem 558473965 Tubular adenoma (D36.9) Active confirmed He will continue to undergo colonoscopies every 5 years. Problem 31497917 Carpal tunnel syndrome, right upper limb (G56.01) Active confirmed He has seen the orthopedic surgeon and will undergo surgery for carpal tunnel syndrome on the right later this month. He is cleared for surgery at this time. Problem 83668533 Coronary artery disease (I25.10) Active confirmed He has had no recent palpitations, angina, syncope or nausea. He has been compliant with all of his medications. He saw his analog ic design engineer this month who found him to be stable and gave him an appointment to return in one year. Problem 600566189 BPH (benign prostatic hyperplasia) (N40.0) Active confirmed He arises from sleep once or twice a night to urinate. We have discussed lifestyle modifications he could make to reduce nocturia. Problem 168621142 Peripheral vascular disease (I73.9) Active confirmed He [...] and was thought to be stable. 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 He has an upcoming appointment with a neurosurgeon at the end of this month. Problem 717918284 Erectile dysfunction (N52.9) Active confirmed This is well compensated with medications. Problem 484401841 Osteoarthritis of right hip (M16.11) Active confirmed He continues to have the same pain in his right hip with walking. He is able to ambulate but it is difficult. He does not wish to consider a surgical approach. Problem 13591099 Spinal stenosis, lumbar (M48.06) Active confirmed The lumbar fusiontook place without side effects or incidents. He notices a substantial improvement in his back pain. The wound is well-healed. He reports much less pain with ambulation. 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 The discomfort has resolved. Problem Pulmonary emphysema (29732363) Emphysema lung (J43.9) Active confirmed He is no longer smoking. He is short of breath with sustained exertion but is comfortable breathing room air at rest. Problem 012646525 History of bladder cancer (Z85.51) Active confirmed There was no sign of cancer on his exam today. He recently had a cystoscopy, March 2024 which showed no gross recurrence. Surveillance will continue Problem 138960672 Stage 2 chronic kidney disease (N18.2) Active [...] Date Provider Diagnosis Trevon Colby III, MD [address] [place] [address] [place] [phone] 11/29/2023 Trevon Colby Hyperlipidemia E78.5 ; Overweight E66.3 ; Osteoarthritis of right hip M16.11 ; Spinal stenosis, lumbar M48.06 ; History of bladder cancer Z85.51 ; Peripheral vascular disease I73.9 and Coronary artery disease I25.10 Trevon Colby III, MD [address] [place] [address] [place] [phone] 02/28/2024 Trevon Colby Hyperlipidemia E78.5 ; BPH (benign prostatic hyperplasia) N40.0 ; Peripheral vascular disease I73.9 ; Stage 2 chronic kidney disease N18.2 ; Osteoarthritis of right hip M16.11 ; Spinal stenosis, lumbar M48.06 ; History of bladder cancer Z85.51 ; Former smoker Z87.891 ; Ulnar nerve entrapment at left ulnar grove G56.22 and Emphysema lung J43.9 Trevon Colby III, MD [address] [place] [address] [place] [phone] 05/01/2024 Trevon Colby Hyperlipidemia E78.5 ; Overweight E66.3 ; BPH (benign prostatic hyperplasia) N40.0 ; Former smoker Z87.891 ; History of bladder cancer Z85.51 ; Osteoarthritis of right hip M16.11 ; Peripheral vascular disease I73.9 ; Spinal stenosis, lumbar M48.06 ; Coronary artery disease I25.10 ; Emphysema lung J43.9 and Stage 2 chronic kidney disease N18.2 Trevon Colby III, MD [address] [place] [address] [place] [phone] 08/01/2024 Trevon Colby Hyperlipidemia E78.5 ; Osteoarthritis of right hip M16.11 ; Overweight E66.3 ; Spinal stenosis, lumbar M48.06 ; Carpal tunnel syndrome, right upper limb G56.01 ; Peripheral vascular disease I73.9 ; History of bladder cancer Z85.51 and Stage 2 chronic kidney disease N18.2 Trevon Colby III, MD [address] [place] [address] [place] [phone] 10/13/2024 Trevon Colby Hyperlipidemia E78.5 ; Spinal [...] all of his medications. He saw his analog ic design engineer this month who found him to be stable and gave him an appointment to return in one year. 10/13/2024 Coronary artery disease (ICD-10 - I25.10) He has had no recent palpitations, angina, syncope or nausea. He has been compliant with all of his medications. He saw his analog ic design engineer this month who found him to be [...] Provider Name:Trevon Colby, 02/11/2025 10:00:00 AM, [address] [facility] JORGE [address]ERT[address]ANIEL[address], [place], [phone], Provider Name:Trevon Colby, 05/05/2025 09:30:00 AM, [address] [facility] JORGE ALBERTO DANIELSON, [place], [phone], Insurance Providers Payer Name Payer Address Payer Phone Subscriber Number Group Number Insured Name Patient Relationship to Insured Coverage Start Date Coverage End Date [employer] [address] [place], [place] [phone] [phone] [id number] Spencer Price Self - patient is the [...] 17 Surgical History Surgery Date(Month/Year) L3-L5 fusion [facility] 09/18/2024 Left femoral endarterectomy, right superficial Femoral artery atherectomy and angioplasty 06/2018 Right popliteal and peroneal artery athe rectomy and angioplasty 12/2017 Angioplasty right peroneal and popliteal artery 04/13/2021 Lumbar L3-5 Laminectomy, par tial facetectomy, foraminotomy, [facility], Dr Baltazar 10/25/[address] Bear 04/2021 [...]
--- OUTSIDE RECORDS SUMMARY | 2024-11-19 12:28 | XMS_ITS ---
Author Organization Trevon Colby III, MD Address [address] [place] [address] [address] [facility] [place] [address] Care Team Providers Care Flower Maker Name Role Phone Trevon Colby Primary Care [...] Date Provider Diagnosis Trevon Colby III, MD [address] [place] [address] [place] [address] 08/01/2024 Trevon Colby Hyperlipidemia E78.5 ; Osteoarthritis [...] OV Provider Name:Trevon Colby, 02/11/2025 10:00:00 AM, [address] [place] [address] JORGE ALB[address]O DANIELSON, [place], [phone], Provider Name:Trevon Colby, 05/05/2025 09:30:00 AM, [address] [place] [address] [place], [address], Progress Notes * Spencer PR[birth year]EDOB:[birth year] (79 yo M)Acc No.[id number]:08/01/2024 Progress Notes Patient:?DarylSpencer meza Provider:?Trevon Colby MD :1945???Age:79 Y???Sex:Male Blas e:08/01/2024 Address:[address], [id number] Subjective: * Chief Complaints: * ???Peripheral vascular [...] April of this year he saw his tar distributor operator who gave him a one-year follow-up appointment. [...] Bear 1Lumbar L3-5 Laminectomy, partial facetectomy, foraminotomy, [facility], Dr Baltazar 3Angioplasty right peroneal and popliteal [...] 52 (Ref Range: >40 mg/dL) * Lab:[facility] [place]. Pane l Fast * Order Date 07/24/2024 [...] Colby MD Date:?07/14 Generated for Printi ng/Faradhamesg/eTransmitting on:?11/19/2024 12:27 PM EST History and Physical Notes * HPI [...]
--- OUTSIDE RECORDS SUMMARY | 2024-11-19 12:28 | XMS_ITS ---
Author Organization Trevon Colby III, MD Address [address] [place] [address] [address] [place] [address] Care Team Providers Care Qc Manager Name Role Phone Trevon Colby Primary Care Provider [phone] Allergies Allergen (clinical drug ingredient) Drug/Non Drug [...] Date Provider Diagnosis Trevon Colby III, MD [address] [place] [address] [address], [place] [address] 10/13/2024 Trevon Colby Hyperlipidemia E78.5 ; Spinal [...] all of his medications. He saw his force adjustment supervisor this month who found him to be [...] OV Provider Name:Trevon Colby, 02/11/2025 10:00:00 AM, [address] [place] [address] [address], [place], [address], Provider Name:Trevon Colby, 05/05/2025 09:30:00 AM, [address] [place] [address] [address], [place], [address], Progress Notes * Spencer PR[birth year]EDOB:[birth year] (79 yo M)Acc No.[id number]:10/13/2024 Progress Notes Patient:?Spencer PRICE Provider:?Trevon Colby MD :1945???Age:79 Y???Sex:Male Blas e:10/13/2024 Address:[address] [place], [place] [phone] Subjective: * Chief Complaints: * ???Recent back [...] measured at 133/60. He was admitted to [facility] September 16, 2024 and underwent a lumbar [...] Bear 1Lumbar L3-5 Laminectomy, partial facetectomy, foraminotomy, [facility], Dr Baltazar 10/25/2023ngioplasty right peroneal and popliteal artery 04/13/2021ight popliteal and peroneal artery atherectomy and angioplasty 12/2017Left femoral endarterectomy, right superficial Femoral artery atherectomy and angioplasty [id number] fusion [facility] 09/18/2024 * Hospitalization/Major Diagno stic Procedure:?Back surgery [...] all of his medications. He saw his force adjustment supervisor this month who found him to be [...] Sign off status: Completed true * Provider:?Trevon Cobly MD Date:?12/2023 Generated for Allison jimenez/Bhavin/Demetriaitting on:?11/19/2024 12:27 PM EST History and Physical Notes * HPI (History of Present Illness) Category Sub-Category Detail Notes COVID-19 Screening Questions Have you had any new onset fever, chills, cough, congestion, sore throat, shortness of breath, muscle aches?: No Have you been exposed to the virus withi n the last 10 days?: No Have you travelled internationally in [facility] last 10 days?: No Have you [...]
--- OUTSIDE RECORDS SUMMARY | 2024-11-19 12:28 | XMS_ITS ---
Author Organization Trevon Colby III, MD Address [address] [place] [address] [address]ela [facility] [place] [address] Care Team Providers Care Corporate Vp Advertising & Online Name Role Phone Trevon Colby Primary Care [...] Date Provider Diagnosis Trevon Colby III, MD [address] [place] [address] [place] [address] 05/01/2024 Trevon Colby Hyperlipidemia E78.5 ; Overweight [...] all of his medications. He saw his keeler polygraph operator this month who found him to be [...] OV Provider Name:Trevon Colby, 02/11/2025 10:00:00 AM, [address] [place] [address] [address], [place], [address], Provider Name:Trevon Colby, 05/05/2025 09:30:00 AM, [address] [place] [address] [address], [place], [address], Progress Notes * Spencer PR[birth year]EDOB:[birth year] (79 yo M)Acc No.[id number]:05/01/2024 Progress Notes Patient:?Spencer Price Provider:?Trevon Colby MD :1945???Age:78 Y???Sex:Male Blas e:05/01/2024 Address:[address] [place], [place] [phone] Subjective: * Chief Complaints: * ???Annual Exam * HPI: ???Depression Screening:? He returns to the office at the age of 82 his annual physical examination. On October 25, 2023 at [facility] he underwent an L3-L4 and L4-L5 laminectomy, [...] On May 01, 2024 he saw his keeler polygraph operator, Dr. Armstrong, who thought him to be [...] Bear 1Lumbar L3-5 Laminectomy, partial facetectomy, foraminotomy, [facility], Dr Baltazar 3Angioplasty right peroneal and popliteal [...] all of his medications. He saw his keeler polygraph operator this month who found him to be [...] * ?BLD Negative Negative - * Procedure Codes:?09441 URINE -NO MICRO * Preventive Medicine:? ??Counseling:?Care [...] Colby MD Date:?04/13 Generated for Allison jimenez/Bhavin/Demetriaitting on:?11/19/2024 12:27 PM [...] days?: No Have you travelled internationally in [facility] last 10 days?: No Have you [...]
--- OUTSIDE RECORDS SUMMARY | 2024-11-19 12:28 | XMS_ITS | Continuity of Care Document ---
Author Name [facility] Organization [facility] Care Team Providers Care [place] Safety Engineer Name Role Phone [facility] Unavailable Unavailable Problems Combined list of problems [...] [place] [facility] - Coronary Artery Disease ([facility] [id number]) Active Condition Jun 17, 2022 Entered By: PAU MARY Comment: Following with Dr. 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, 2018 Entered By: MARI SCHMID Comment: BCG- teatment ( ) cystoscopy scheduled 12/26/18 and 01/17/19 [facility] [place] [facility] Degenerative disc disease Active Condition [facility] [place] [facility] H/O cardiac surgery Active Condition Jun 22, 2017 Entered By: MARI SCHMID Comment: stent 2015 [facility] [place] [facility] History of - surgery Active [...] Colonscopy - polyps ( 5 yrs )- [facility] 2018 Entered By: MARI SCHMID Comment: 2018 [...] wants MRI of lumbar spine [facility] [place] [facility] PAD - Peripheral arterial disease Active Condition Dec 28 8 Entered By: MARI SCHMID Comment: 2nd aortogram- bil 12/19/17Au2021 Entered By: PAU MARY Comment: with caulidcation, though improved, following with Vascular-- Dr. Bear- has required multiple LE interventions, Vascular considering switchign plavix to xarelto 2.5mg bid [facility] [place] [facility] Screening status Active Condition Dec 28, 2017 Entered By: MARI SCHMID Comment: Colonoscopy 2018 ( no result ) - per pt repeat in 5 yrs.Dec 28, 2017 Entered By: MARI SCHMID Comment: aortogram bilateral lower legs - [facility] 12/19/17 - DR SYLWIA STROUD [facility] [place] [facility] Under care of multiple providers Active Condition Dec 28, 2017 Entered By: MARI SCHMID Comment: non va- Dr Trevon Hill ( in office and the [facility])Jun 28, 2017 Entered By: MARI SCHMID Comment: Urology- Dr Petit 2018 Entered By: MARI SCHMID Comment: [facility]- ( eye/ PODIATRY) [facility] Diagnosis: ICD-10-CM K03.6 Deposits [accretions] on teeth Active Diagnosis [facility] Diagnosis: ICD-10-CM I10 Essential (primary) hypertension Active Diagnosis [facility] Diagnosis: ICD-10-CM M54.17 Radiculopathy, lumbosacral region Active Diagnosis [facility] Medications Combined list of outpatient medications from Department of Defense and [facility] facilities.Medications provided include 1) outpatient medications from the last 15 months, and 2) patient-reported medications. Medication Details Route Status Patient Instructions Prescription Expires Prescription Number Last Dispense Date Ordering Provider Order Date Order Qty Source ASPIRIN 81MG TAB,EC TAKE ONE TABLET BY MOUTH ONCE DAILY TO PREVENT STROKE/H EART ATTACK ORAL 03/29/2024 [id number] ERON MANUEL 2022 120 [facility] ATORVASTATI N CA 80MG TAB TAKE ONE TABLET BY MOUTH ONCE DAILY FOR CHOLESTE ROL ORAL ACTIVE 03/25/2025 [id number] ERON MANUEL 2023 90 [facility] ATORVASTATI N CA 80MG TAB TAKE ONE TABLET BY MOUTH ONCE DAILY FOR CHOLESTE ROL ORAL DISCONT INUED (EDIT) 03/29/2024 [id number] ERON MANUEL 2022 90 [facility] CLOPIDOGREL BISULFATE 75MG TAB TAKE ONE TABLET BY MOUTH ONCE DAILY FOR MYOCARDI AL REINFARC TION PREVENTI ON ORAL ACTIVE 03/25/2025 [id number] ERON MANUEL 2023 90 [facility] CLOPIDOGREL BISULFATE 75MG TAB TAKE ONE TABLET BY MOUTH ONCE DAILY ORAL DISCONT INUED (EDIT) 03/29/2024 [id number] ERON MANUEL 2022 90 [facility] [place] EZETIMIBE 10MG TAB TAKE ONE TABLET BY MOUTH ONCE DAILY TO LOWER CHOLESTE ROL ORAL ACTIVE 03/25/2025 [id number] ERON MANUEL 2023 90 [facility] [place] EZETIMIBE 10MG TAB TAKE ONE TABLET BY MOUTH ONCE DAILY TO LOWER CHOLESTE ROL ORAL DISCONT INUED (EDIT) 03/29/2024 [id number] ERON MANUEL 2022 90 [facility] [place] HYDROCHLORO THIAZIDE 12.5MG/NISHA NOPRIL 10MG TAB TAKE 1 TABLET BY MOUTH AT BEDTIME ORAL DISCONT INUED (EDIT) 03/29/2024 [id number] ERON MANUEL 2022 90 [facility] [place] HYDROCHLORO THIAZIDE 12.5MG/NISHA NOPRIL 20MG TAB TAKE 1 TABLET BY MOUTH AT BEDTIME FOR HIGH BLOOD PRESSURE (NOTE DOSE) ORAL ACTIVE 03/25/2025 [id number] ERON MANUEL 2023 90 [facility] METOPROLOL SUCCINATE 50MG TAB,SA TAKE ONE TABLET BY MOUTH ONCE DAILY FOR BLOOD PRESSURE /HEART ORAL ACTIVE 03/25/2025 [id number] ERON MANUEL 2023 90 [facility] METOPROLOL SUCCINATE 50MG TAB,SA TAKE ONE TABLET BY MOUTH ONCE DAILY FOR BLOOD PRESSURE /HEART ORAL DISCONT INUED (EDIT) 03/24/2024 [id number] 4 ERON MANUEL 2022 90 [facility] [place] NAPROXEN 500MG TAB TAKE ONE TABLET BY MOUTH TWICE DAILY NEEDED FOR PAIN TAKE WITH FOOD ORAL 10/12/2024 [id number] [place] ERON LAURA BINU Bradley 2023 90 [facility] [place] NAPROXEN 500MG TAB TAKE ONE TABLET BY MOUTH TWICE DAILY NEEDED TAKE WITH FOOD; FOR PAIN/INF LAMMATIO N/SWELLTommy NG ORAL 02/10/2024 [id number] 4 [place]ENT[place] LAURAERONDarwin Bradley 2022 180 [facility] [place] SODIUM FLUORIDE 1.1% TOOTHPASTE BRUSH SMALL AMOUNT TO TEETH TWICE DAILY FOR TOOTH DECAY PREVENTI ON DENTAL ACTIVE 09/03/2025 [id number] 4 MIKAELA HEBERT 2023 51 [facility] [place] SODIUM FLUORIDE 1.1% TOOTHPASTE BRUSH SMALL AMOUNT TO TEETH TWICE DAILY DENTAL 06/01/2024 [id number] 4 CRISSY MAHER 2022 204 [facility] [place] [facility] Allergies, Adverse Reactions, Alerts Combined list of allergies from Department of Defense and [facility] facilities. It does not include entries that were removed or entered in error. Substance Category Reaction Severity Reaction type Status Date Reported Comments Source PERCOCET Propensity to adverse reactions to drug (finding) Sweating active 7 [facility] [place] [facility] Immunizations Combined list of available immunizations from the Department of Defense and Veterans Affairs facilities. Immunization Series Date Given Administered By Site Reaction Lot Number CVX Code Drug President Sales And Marketing Status Comments Source INFLUENZA, UNSPECIFIED FORMULATION 2022 88 complet ed [facility] [place] [facility] INFLUENZA, UNSPECIFIED FORMULATION 2021 88 complet ed [facility] COVID-19 (MODERNA), MRNA, LNP-S, PF, 100 MCG/0.5ML DOSE OR 50 MCG/0.25ML DOSE 3 2020 207 complet ed [facility] COVID-19 (MODERNA), MRNA, LNP-S, PF, 100 MCG/0.5 ML DOSE 2 2020 207 complet ed MOD; [id number]; 1 [facility] [place] COVID-19 (MODERNA), MRNA, LNP-S, PF, 100 MCG/0.5 ML DOSE 1 2020 207 complet ed MOD; [id number]; 1 [facility] [place] [...] [address] Hill office [facility] [place] PNEUMOCOCCAL CONJUGATE PCV 13 2016 133 complet ed [facility] [place] ZOSTER (SHINGLES) (HISTORICAL) 2016 121 complet ed Proximal Left Arm [facility] FLU,3 YRS (HISTORICAL) [address] Sorensen office [facility] [place] Results Combined [...] Aug 28, 2024 09:07 AM Reporting Lab: [facility] [place] [facility] [address] [facility] [address] Performing Lab: [facility] [place] [facility] [address] [facility] [address] [facility] [place] [facility] MICROALBU MIN CREATININ E RATIO PANEL MICROALBUMI N [MASS/VOLUM E] IN URINE 0.7 mg/dL 09/02 Specimen Type: URINE No comment entered. Ordering Provider: LAURIE CHINCHILLA Report Released Date/Time: Aug 28, 2024 09:07 AM Reporting Lab: [facility] [place] [facility] [address] [facility] [address] Performing Lab: [facility] [place] [facility] [address] [facility] [address] [facility] [place] [facility] MICROALBU MIN CREATININ E RATIO PANEL CREATININE [MASS/VOLUM E] IN URINE 52.17 mg/dL 09/02 Specimen Type: URINE No comment entered. Ordering Provider: LAURIE CHINCHILLA Report Released Date/Time: Aug 28, 2024 09:07 AM Reporting Lab: [facility] [place] [facility] [address] [facility] [address] Performing Lab: [facility] [place] [facility] [address] [facility] [address] [facility] [place] [facility] BASIC METABOLIC PANEL (non-fast ing) UREA NITROGEN [MASS/VOLUM E] IN SERUM OR PLASMA 33 mg/dL 7 - 25 09/02 H Specimen Type: SERUM No comment entered. Ordering Provider: LAURIE CHINCHILLA Report Released Date/Time: Aug 28, 2024 09:07 AM Reporting Lab: [facility] [place] [facility] [address] [facility] [address] Performing Lab: [facility] [place] [facility] [address] [facility] [address] [facility] [place] [facility] BASIC METABOLIC PANEL (non-fast ing) GLUCOSE [MASS/VOLUM E] IN SERUM OR PLASMA 97 mg/dL 65 - 100 09/02 Specimen Type: SERUM No comment entered. Ordering Provider: LAURIE CHINCHILLA Report Released Date/Time: Aug 28, 2024 09:07 AM Reporting Lab: [facility] [place] [facility] [address] [facility] [phone] Performing Lab: [facility] [place] [facility] [address] [facility] [address] [facility] [facility] BASIC METABOLIC PANEL (non-fast ing) SODIUM [MOLES/VOLU ME] IN SERUM OR PLASMA 136 mmol/L 135 - 145 09/02 Specimen Type: SERUM No comment entered. Ordering Provider: LAURIE CHINCHILLA Report Released Date/Time: Aug 28, 2024 09:07 AM Reporting Lab: [facility] [place] [facility] [address] [facility] [address] Performing Lab: [facility] [place] [facility] [address] [facility] [address] [facility] [facility] BASIC METABOLIC PANEL (non-fast ing) POTASSIUM [MOLES/VOLU ME] IN SERUM OR PLASMA 4.7 mmol/L 3.5 - 5.0 09/02 Specimen Type: SERUM No comment entered. Ordering Provider: LAURIE CHINCHILLA Report Released Date/Time: Aug 28, 2024 09:07 AM Reporting Lab: [facility] [place] [facility] [address] [facility] [address] Performing Lab: [facility] [place] [facility] [address] [facility] [address] [facility] [facility] BASIC METABOLIC PANEL (non-fast ing) CHLORIDE [MOLES/VOLU ME] IN SERUM OR PLASMA 106 mmol/L 100 - 110 09/02 Specimen Type: SERUM No comment entered. Ordering Provider: LAURIE CHINCHILLA Report Released Date/Time: Aug 28, 2024 09:07 AM Reporting Lab: [facility] [place] [facility] [address] [facility] [address] Performing Lab: [facility] [place] [facility] [address] [facility] [address] [facility] BASIC METABOLIC PANEL (non-fast ing) CARBON DIOXIDE, TOTAL [MOLES/VOLU ME] IN SERUM OR PLASMA 24 meq/L 20 - 30 09/02 Specimen Type: SERUM No comment entered. Ordering Provider: LAURIE CHINCHILLA Report Released Date/Time: Aug 28, 2024 09:07 AM Reporting Lab: [facility] [address] [facility] [address] Performing Lab: [facility] [address] [facility] [address] [facility] BASIC METABOLIC PANEL (non-fast ing) CREATININE [MASS/VOLUM E] IN SERUM OR PLASMA 1.40 mg/dL 0.50 - 1.40 09/02 Specimen Type: SERUM No comment entered. Ordering Provider: LAURIE CHINCHILLA Report Released Date/Time: Aug 28, 2024 09:07 AM Reporting Lab: [facility] [address] [facility] [address] Performing Lab: [facility] [address] [facility] [address] [facility] BASIC METABOLIC PANEL (non-fast ing) GLOMERULAR FILTRATION RATE/1.73 SQ M.PREDICTED [VOLUME RATE/AREA] IN SERUM, PLASMA OR BLOOD BY CREATININE- BASED FORMULA (CKD-EPI 2020) 50 mL/min 60 09/02 L Specimen Type: SERUM No comment entered. Ordering Provider: LAURIE CHINCHILLA Report Released Date/Time: Aug 28, 2024 09:07 AM Reporting Lab: [facility] [address] [facility] [address] Performing Lab: [address] [address] [facility] LIPID PANEL, NON FASTING CHOLESTEROL [MASS/VOLUM E] IN SERUM OR PLASMA 128 mg/dL 09/02 Specimen Type: SERUM No comment entered. Ordering Provider: LAURIE CHINCHILLA Report Released Date/Time: Aug 28, 2024 09:07 AM Reporting Lab: [facility] [place] [facility] [address] [facility] [address] Performing Lab: [facility] [place] [facility] [address] [facility] [address] [facility] [place] [facility] LIPID PANEL, NON FASTING TRIGLYCERID E [MASS/VOLUM E] IN SERUM OR PLASMA 69 mg/dL 0 - 150 09/02 Specimen Type: SERUM No comment entered. Ordering Provider: LAURIE CHINCHILLA Report Released Date/Time: Aug 28, 2024 09:07 AM Reporting Lab: [facility] [place] [facility] [address] [facility] [address] Performing Lab: [facility] [place] [facility] [address] [facility] [address] [facility] [place] [facility] LIPID PANEL, NON FASTING CHOLESTEROL IN LDL [MASS/VOLUM E] IN SERUM OR PLASMA BY CALCULATION 60 mg/dL 0 - 129 09/02 Specimen Type: SERUM No comment entered. Ordering Provider: LAURIE CHINCHILLA Report Released Date/Time: Aug 28, 2024 09:07 AM Reporting Lab: [facility] [place] [facility] [address] [facility] [address] Performing Lab: [facility] [place] [facility] [address] [facility] [address] [facility] [place] [facility] LIPID PANEL, NON FASTING CHOLESTEROL .TOTAL/CHOL ESTEROL IN HDL [MASS RATIO] IN SERUM OR PLASMA 2.4 09/02 Specimen Type: SERUM No comment entered. Ordering Provider: LAURIE CHINCHILLA Report Released Date/Time: Aug 28, 2024 09:07 AM Reporting Lab: [facility] [place] [facility] [address] [facility] [address] Performing Lab: [facility] [place] [facility] [address] [facility] [address] [facility] [place] [facility] LIPID PANEL, NON FASTING CHOLESTEROL IN HDL [MASS/VOLUM E] IN SERUM OR PLASMA 54 mg/dL 40 - 60 09/02 Specimen Type: SERUM No comment entered. Ordering Provider: LAURIE CHINCHILLA Report Released Date/Time: Aug 28, 2024 09:07 AM Reporting Lab: [facility] [address] [facility] [address] Performing Lab: [facility] [address] [facility] [address] [facility] TSH THYROTROPIN [UNITS/VOLU ME] IN SERUM OR PLASMA 1.43 u[IU]/ mL 0.35 - 5.00 09/02 Specimen Type: SERUM No comment entered. Ordering Provider: LAURIE CHINCHILLA Report Released Date/Time: Aug 28, 2024 09:07 AM Reporting Lab: [facility] [address] [facility] [address] Performing Lab: [address] [address] [facility] HEMOGLOBI N A1C PANEL HEMOGLOBIN A1C/HEMOGLO [...] Aug 28, 2024 09:07 AM Reporting Lab: [facility] [address] [facility] [address] Performing Lab: [facility] [address] [facility] [address] [facility] CALCIUM CALCIUM [MASS/VOLUM E] IN SERUM OR PLASMA 10.0 mg/dL 8.5 - 10.2 10/22 /2024 Specimen Type: SERUM No comment entered. Ordering Provider: LAURIE CHINCHILLA Report Released Date/Time: Aug 28, 2024 09:07 AM Reporting Lab: [facility] [place] [facility] [address] [facility] [address] Performing Lab: [facility] [place] [facility] [address] [facility] [address] [facility] [place] [facility] CBC AND DIFF (AUTO) LEUKOCYTES [#/VOLUME] IN BLOOD BY AUTOMATED COUNT 8.50 10*3/u L 4.50 - 11.00 09/02 Specimen Type: BLOOD No comment entered. Ordering Provider: LAURIE CHINCHILLA Report Released Date/Time: Aug 28, 2024 09:07 AM Reporting Lab: [facility] [place] [facility] [address] [facility] [address] Performing Lab: [facility] [place] [facility] [address] [facility] [address] [facility] [place] [facility] CBC AND DIFF (AUTO) ERYTHROCYTE S [#/VOLUME] IN BLOOD BY AUTOMATED COUNT 3.92 10*6/u L 4.23 - 5.66 09/02 L Specimen Type: BLOOD No comment entered. Ordering Provider: LAURIE CHINCHILLA Report Released Date/Time: Aug 28, 2024 09:07 AM Reporting Lab: [facility] [place] [address] [address] Performing Lab: [facility] [place] [facility] [address] [facility] [address] [facility] [place] [facility] CBC AND DIFF (AUTO) HEMOGLOBIN [MASS/VOLUM E] IN BLOOD 12.9 g/dL 12.8 - 17 09/02 Specimen Type: BLOOD No comment entered. Ordering Provider: LAURIE CHINCHILLA Report Released Date/Time: Aug 28, 2024 09:07 AM Reporting Lab: [facility] [place] [facility] [address] [facility] [address] Performing Lab: [facility] [place] [address] [address] [facility] [place] [facility] CBC AND DIFF (AUTO) HEMATOCRIT [VOLUME FRACTION] OF BLOOD BY AUTOMATED COUNT 38.0 39.2 - 50.4 09/02 L Specimen Type: BLOOD No comment entered. Ordering Provider: LAURIE CHINCHILLA Report Released Date/Time: Aug 28, 2024 09:07 AM Reporting Lab: [facility] [place] [facility] [address] [facility] [address] Performing Lab: [facility] [place] [facility] [address] [facility] [address] [facility] [place] [facility] CBC AND DIFF (AUTO) MCV [ENTITIC VOLUME] BY AUTOMATED COUNT 96.9 fL 82 - 99 09/02 Specimen Type: BLOOD No comment entered. Ordering Provider: LAURIE CHINCHILLA Report Released Date/Time: Aug 28, 2024 09:07 AM Reporting Lab: [facility] [place] [facility] [address] [facility] [address] Performing Lab: [facility] [place] [facility] [address] [facility] [address] [facility] [place] [facility] CBC AND DIFF (AUTO) MCHC [MASS/VOLUM E] BY AUTOMATED COUNT 33.9 g/dL 30.8 - 35.1 09/02 Specimen Type: BLOOD No comment entered. Ordering Provider: LAURIE CHINCHILLA Report Released Date/Time: Aug 28, 2024 09:07 AM Reporting Lab: [facility] [place] [facility] [address] [facility] [address] Performing Lab: [facility] [place] [facility] [address] [facility] [address] [facility] [place] [facility] CBC AND DIFF (AUTO) PLATELETS [#/VOLUME] IN BLOOD BY AUTOMATED COUNT 259 10*3/u L 140 - 360 09/02 Specimen Type: BLOOD No comment entered. Ordering Provider: LAURIE CHINCHILLA Report Released Date/Time: Aug 28, 2024 09:07 AM Reporting Lab: [facility] [place] [facility] [address] [facility] [address] Performing Lab: [facility] [place] [facility] [address] [facility] [address] [facility] [place] [facility] CBC AND DIFF (AUTO) ERYTHROCYTE DISTRIBUTIO N WIDTH [RATIO] BY AUTOMATED COUNT 12.2 12.0 - 16.0 09/02 Specimen Type: BLOOD No comment entered. Ordering Provider: LAURIE CHINCHILLA Report Released Date/Time: Aug 28, 2024 09:07 AM Reporting Lab: [facility] [place] [facility] [address] [facility] [address] Performing Lab: [facility] [place] [facility] [address] [facility] [address] [facility] [place] [facility] CBC AND DIFF (AUTO) MONOCYTES [#/VOLUME] IN BLOOD BY AUTOMATED COUNT 0.76 10*3/u L 0.30 - 1.10 09/02 Specimen Type: BLOOD No comment entered. Ordering Provider: LAURIE CHINCHILLA Report Released Date/Time: Aug 28, 2024 09:07 AM Reporting Lab: [facility] [place] [facility] [address] [facility] [address] Performing Lab: [facility] [place] [facility] [address] [facility] [address] [facility] [place] [facility] CBC AND DIFF (AUTO) MCH [ENTITIC MASS] BY AUTOMATED COUNT 32.9 pg 26.2 - 32.6 09/02 H Specimen Type: BLOOD No comment entered. Ordering Provider: LAURIE CHINCHILLA Report Released Date/Time: Aug 28, 2024 09:07 AM Reporting Lab: [facility] [place] [facility] [address] [facility] [address] Performing Lab: [facility] [place] [facility] [address] [facility] [address] [facility] [place] [facility] CBC AND DIFF (AUTO) NEUTROPHILS /100 LEUKOCYTES IN BLOOD BY AUTOMATED COUNT 72.2 43.7 - 75.8 09/02 Specimen Type: BLOOD No comment entered. Ordering Provider: LAURIE CHINCHILLA Report Released Date/Time: Aug 28, 2024 09:07 AM Reporting Lab: [facility] [place] [facility] [address] [facility] [address] Performing Lab: [facility] [place] [facility] [address] [facility] [address] [facility] [place] [facility] CBC AND DIFF (AUTO) LYMPHOCYTES /100 LEUKOCYTES IN BLOOD BY AUTOMATED COUNT 14.6 14.0 - 42.3 09/02 Specimen Type: BLOOD No comment entered. Ordering Provider: LAURIE CHINCHILLA Report Released Date/Time: Aug 28, 2024 09:07 AM Reporting Lab: [facility] [place] [facility] [address] [facility] [address] Performing Lab: [facility] [place] [facility] [address] [facility] [address] [facility] [place] [facility] CBC AND DIFF (AUTO) MONOCYTES/1 00 LEUKOCYTES IN BLOOD BY AUTOMATED COUNT 8.9 5.1 - 13.7 09/02 Specimen Type: BLOOD No comment entered. Ordering Provider: LAURIE CHINCHILLA Report Released Date/Time: Aug 28, 2024 09:07 AM Reporting Lab: [facility] [place] [facility] [address] [facility] [address] Performing Lab: [facility] [place] [facility] [address] [facility] [address] [facility] [place] [facility] CBC AND DIFF (AUTO) EOSINOPHILS /100 LEUKOCYTES IN BLOOD BY AUTOMATED COUNT 3.5 0.4 - 6.8 09/02 Specimen Type: BLOOD No comment entered. Ordering Provider: LAURIE CHINCHILLA Report Released Date/Time: Aug 28, 2024 09:07 AM Reporting Lab: [facility] [place] [facility] [address] [facility] [address] Performing Lab: [facility] [place] [facility] [address] [facility] [address] [facility] [place] [facility] CBC AND DIFF (AUTO) BASOPHILS/1 00 LEUKOCYTES IN BLOOD BY AUTOMATED COUNT 0.6 0.1 - 2.0 09/02 Specimen Type: BLOOD No comment entered. Ordering Provider: LAURIE CHINCHILLA Report Released Date/Time: Aug 28, 2024 09:07 AM Reporting Lab: [facility] [place] [address] [address] Performing Lab: [facility] [place] [address] [address] [facility] CBC AND DIFF (AUTO) NEUTROPHILS [#/VOLUME] IN BLOOD BY AUTOMATED COUNT 6.13 10*3/u L 2.20 - 7.60 09/02 Specimen Type: BLOOD No comment entered. Ordering Provider: LAURIE CHINCHILLA Report Released Date/Time: Aug 28, 2024 09:07 AM Reporting Lab: [facility] [place] [address] [address] Performing Lab: [facility] [place] [facility] [address] [facility] [address] [facility] CBC AND DIFF (AUTO) LYMPHOCYTES [#/VOLUME] IN BLOOD BY AUTOMATED COUNT 1.24 10*3/u L 1.00 - 3.20 09/02 Specimen Type: BLOOD No comment entered. Ordering Provider: LAURIE CHINCHILLA Report Released Date/Time: Aug 28, 2024 09:07 AM Reporting Lab: [facility] [place] [address] [address] Performing Lab: [facility] [place] [address] [address] [facility] [place] [facility] CBC AND DIFF (AUTO) EOSINOPHILS [#/VOLUME] IN BLOOD BY AUTOMATED COUNT 0.30 10*3/u L 0.03 - 0.44 09/02 Specimen Type: BLOOD No comment entered. Ordering Provider: LAURIE CHINCHILLA Report Released Date/Time: Aug 28, 2024 09:07 AM Reporting Lab: [facility] [place] [facility] [address] [facility] [address] Performing Lab: [facility] [place] [facility] [address] [facility] [address] [facility] [place] [facility] CBC AND DIFF (AUTO) BASOPHILS [#/VOLUME] IN BLOOD BY AUTOMATED COUNT 0.05 10*3/u L 0.01 - 0.13 09/02 Specimen Type: BLOOD No comment entered. Ordering Provider: LAURIE CHINCHILLA Report Released Date/Time: Aug 28, 2024 09:07 AM Reporting Lab: [facility] [place] [facility] [address] [facility] [address] Performing Lab: [facility] [facility] [address] [facility] [address] [facility] [place] [facility] CBC AND DIFF (AUTO) IMMATURE GRANULOCYTE S/100 LEUKOCYTES IN BLOOD BY AUTOMATED COUNT 0.2 0.0 - 0.7 09/02 Specimen Type: BLOOD No comment entered. Ordering Provider: LAURIE CHINCHILLA Report Released Date/Time: Aug 28, 2024 09:07 AM Reporting Lab: [facility] [place] [facility] [address] [facility] [address] Performing Lab: [facility] [facility] [address] [facility] [address] [facility] [place] [facility] CBC AND DIFF (AUTO) IMMATURE GRANULOCYTE S [#/VOLUME] IN BLOOD 0.02 10*3/u L 0.00 - 0.06 09/02 Specimen Type: BLOOD No comment entered. Ordering Provider: LAURIE CHINCHILLA Report Released Date/Time: Aug 28, 2024 09:07 AM Reporting Lab: [facility] [place] [facility] [address] [facility] [address] Performing Lab: [facility] [place] [facility] [address] [facility] [address] [facility] [place] [facility] CBC AND DIFF (AUTO) NRBC % 0.0 0.0 - 0.0 09/02 Specimen Type: BLOOD No comment entered. Ordering Provider: LAURIE CHINCHILLA Report Released Date/Time: Aug 28, 2024 09:07 AM Reporting Lab: [facility] [place] [facility] [address] [facility] [address] Performing Lab: [facility] [place] [facility] [address] [facility] [address] [facility] [place] [facility] CBC AND DIFF (AUTO) NRBC, ABS 0.00 10*3/u L 0.00 - 0.00 09/02 Specimen Type: BLOOD No comment entered. Ordering Provider: LAURIE CHINCHILLA Report Released Date/Time: Aug 28, 2024 09:07 AM Reporting Lab: [facility] [place] [facility] [address] [facility] [address] Performing Lab: [facility] [place] [facility] [address] [facility] [address] [facility] [place] [facility] Vital Signs Combined list of inpatient and [...] [facility] 2) Encounters from the Department of Defense facilities going back up to 280 months. Location Location Details Encounter Type Encounter Number Reason For Visit Attending Provider ADM Date DC Date Status Disposition Source [facility]counter [id number] 05/30 [facility] [id number] 06/07 [facility] [id number] 06/29 [facility] [place] En[facility] [id number] 07/13 [facility] [id number] 08/08 [facility] [place] [id number] 08/14 [facility] En[facility] [id number] 08/17 [facility] CLEAN/INSP ECT JOSE PART DENT [id number] Diagnos is: ICD-10- CM K03.6 Deposit s [accret ions] on teeth<b r/> Dewayne TAFOYA 08/21 [facility] DENTAL BITEWING FOUR IMAGES [id number] Diagnos is: ICD-10- CM K03.6 Deposit s [accret ions] on teeth<b r/> CRISSY MAHER 08/21 [facility] [id number] 08/30 [facility] En[facility] [id number] 11/28 [facility] En[facility] [id number] 01/31 [facility] En[facility] [id number] 02/06 [facility] En[facility] [id number] 02/21 [facility] CLEAN/INSP ECT JOSE PART DENT [id number] Diagnos is: ICD-10- CM K03.6 Deposit s [accret ions] on teeth<b r/> Dewayne TAFOYA 02/24 [facility] En[facility] [id number] 03/05 [facility] [place] [place] [facility] OFFICE O/P EST MOD 30 MIN [id number] Diagnos is: ICD-10- CM M54.17 Radicul opathy, lumbosa cral region< br/> LAURIE MRACUM 03/24 [facility] En[facility] [id number] 05/01 [facility] OFF/OP EST MAY X REQ PHY/QHP [id number] 1. Diagnos is: ICD-10- CM I10 Essenti al (primar y) hyperte nsion<b r/> FLORESITA KEITH H 06/26 [facility] [id number] 1.07/09 [facility] En[facility] [id number] 1.08/27 [facility] En[facility] [id number] 1.09/01 [facility] [place] En[facility] [id number] 1.09/01 [facility] [place] [place] [facility] CLEAN/INSP ECT JOSE PART DENT [id number] Diagnos is: ICD-10- CM K03.6 Deposit s [accret ions] on teeth<b r/> Dewayne TAFOYA ADEZHDA 09/02 [facility] En[facility] [id number] 09/02 [facility] [place] En[facility] [id number] 10/03 [facility] [place] [facility] Social History Combined list of available smoking, tobacco, and other social history from Department of Defense and Veterans Affairs facilities. Social History Type Response Date Comment Sourc e Tobacco smoking status MTIS VA-TOBACCO NEVER USED 03/24/2024 [facility] [place] [facility] History of tobacco use CO-TOBACCO FORMER USER 03/29/2023 [facility] [place] [facility] History of tobacco use CO-TOBACCO FORMER USER 02/10/2022 [facility] [place] [facility] History of tobacco use CO-TOBACCO FORMER USER 01/14/2021 [facility] [place] [facility] History of tobacco use CO-TOBACCO FORMER USER 12/23/2018 [facility] [place] [facility] of [facility]2018 [facility] [facility] History of tobacco use LIFETIME NON-TOBACCO USER 06/22/2017 [facility] [place] [facility]
[2024-11-19] MEDS: gadobutroL 10 ML VIAL IVPUSH (13:03)
== END 2024-11-19 12:22 | disposition home or self-care (01) ==
LOC: HO.MRI 12:21
PROVIDERS: PCP Internal Medicine Medical Oncology; Visit Provider Physician Assistant
DX: Z98.890 Other specified postprocedural states (principal)
CPT/HCPCS: 72158; A9585

== ENCOUNTER 2024-11-27 14:39 | Outpatient (REF) | payer MEDICARE, SELFPAY ==
--- NOTE | 2024-11-27 14:44 | EMG_ITS ---
Chief complaint: 79-year-old with history of lumbar spinal stenosis status post lumbar fusion, coronary artery disease status post revascularization, bladder cancer in remission, peripheral vascular disease lower extremities, right hip replacement, former smoker. He had L3-4 and L4-5 laminotomy 10/25/2023. And L2-5 oblique lateral lumbar interbody fusion 10/05/2024. Symptoms then were lower back pain radiating to left side. After surgery, started noticing numbness on left dorsal foot and ankle. He admits though to having tingling on bottom of both feet. No footdrop. Reason for referral: Evaluate for peroneal neuropathy Referred by: Vikram RUVALCABA Procedure done: Bilateral lower extremity NCS/EMG Precautions and/or limitations: Past lumbar surgery- for this reason paraspinal EMG examination deferred, not reliable to show accurate diagnostic evidence evidence The limb temperature was monitored continuously and remained between 32-36 degrees C during the performance of the NCS. Nerve Conduction Studies Anti Sensory Summary Table ?Stim Site NR Onset (ms) Norm Onset (ms) Peak (ms) Norm Peak (ms) O-P Amp (?V) Norm O-P Amp Site1 Site2 Delta-0 (ms) Dist (cm) Stephen (m/s) Norm Stephen (m/s) Left Sural Anti Sensory (Lat Mall) Calf NR <4.0 >5.0 Calf Lat Mall 14.0 Right Sural Anti Sensory (Lat Mall) Calf NR <4.0 >5.0 Calf Lat Mall 14.0 Motor Summary Table ?Stim Site NR Onset (ms) Norm Onset (ms) O-P Amp (mV) Norm O-P Amp iAmp (mV) Amp (1st) (%) Site1 Site2 Delta-0 (ms) Dist (cm) Stephen (m/s) Norm Stephen (m/s) Left Peroneal Motor (Ext Dig Brev) Ankle NR <4.0 >2.5 Ankle Ext Dig Brev 0.0 B Fib NR B Fib Ankle 0.0 >40 Poplt NR Poplt B Fib 0.0 >40 Right Peroneal Motor (Ext Dig Brev) Ankle ? 6.0 <4.0 1.7 >2.5 2.1 100.0 Ankle Ext Dig Brev 6.0 0.0 B Fib ? 12.2 1.5 1.8 88.2 B Fib Ankle 6.2 34.0 55 >40 Poplt ? 13.7 1.4 1.7 82.4 Poplt B Fib 1.5 4.0 27 >40 Left Tibial Motor (Abd Bond Brev) Ankle ? 7.7 <5 1.1 >2.5 1.5 100.0 Ankle Abd Bond Brev 7.7 0.0 Knee ? 18.9 0.4 0.4 36.4 Knee Ankle 11.2 42.0 38 >40 Right Tibial Motor (Abd Bond Brev) Ankle ? 4.4 <5 3.3 >2.5 4.6 100.0 Ankle Abd Bond Brev 4.4 0.0 Knee ? 14.8 3.6 5.1 109.1 Knee Ankle 10.4 40.0 38 >40 EMG ?Side Muscle Nerve Root Ins Act Fibs Psw Amp Dur Poly Recrt Int Pat Comment Right AbdHallucis MedPlantar S1-2 Nml Nml Nml Nml Nml 0 Nml Complete Right AntTibialis Dp Br Peron L4-5 Nml Nml Nml Nml Nml 0 Nml Complete Right PostTibialis Tibial L5, S1 Nml Nml Nml Nml Nml 0 Nml Complete Right MedGastroc Tibial S1-2 Nml Nml Nml Nml Nml 0 Nml Complete Right VastusMed Femoral L2-4 Nml Nml Nml Nml Nml 0 Nml Complete Left AbdHallucis MedPlantar S1-2 Incr 1+ 1+ Nml Nml 0 Nml Complete Left AntTibialis Dp Br Peron L4-5 Nml Nml Nml Nml Nml 0 Nml Complete Left PostTibialis Tibial L5, S1 Nml Nml Nml Nml Nml 0 Nml Complete Left MedGastroc Tibial S1-2 Nml Nml Nml Nml Nml 0 Nml Complete Left VastusMed Femoral L2-4 Nml Nml Nml Nml Nml 0 Nml Complete Left Peroneus Long Sup Br Peron L5-S1 Incr 1+ 1+ Nml Nml 0 Nml Complete Left BicepsFemS Sciatic L5-S1 Incr 1+ 1+ Nml Nml 0 Nml Complete Left GluteusMed SupGluteal L4-S1 Incr 1+ 1+ Nml Nml 0 Nml Complete FINDINGS: Left peroneal nerve showed absent response. Left tibial nerve showed very small/almost absent responses, with prolonged distal latency and slow conduction velocity. Right peroneal nerve showed prolonged distal latency, small amplitude and slow conduction velocity across the fibular neck. Right tibial motor nerve showed prolonged distal latency, small amplitude and slow conduction velocity. Bilateral sural nerves showed absent response. Concentric needle EMG was performed in selected muscles of the bilateral lower extremity. Study revealed signs of electric abnormalities as shown in the table above. Left peroneus longus, AH, biceps femoris short head, gluteus medius muscles showed increased insertional activity, PSWs and fibrillations. IMPRESSION: 1. This is an abnormal study. 2. There is electrodiagnostic evidence for ongoing left L5-S1 radiculopathy based on active denervation seen on needle EMG. 3. There is no electrodiagnostic evidence for sciatic neuropathy or lumbosacral plexopathy. 4. Possible underlying sensorimotor peripheral neuropathy. CLINICAL COMMENT: 1. Active denervation seen on L5-S1 innervated muscles on left lower extremity signifying left L5-S1 radiculopathy. 2. Abnormal nerve conduction results should be interpreted with caution. For example, it is common to see absent sural responses and slow conduction velocities with advanced age. Results are not necessarily considered abnormal without other confirmative data for peripheral neuropathy. Patient denies any past history of diabetes or other known risk factors for peripheral neuropathy. Thank you for your kind referral. Anastasiya Villanueva MD, HERNANDEZ Board Certified, [place] [employer] and Rehabilitation (ABPMR) Board Certified, [place] Board of Electrodiagnostic Medicine (ABEM) [address] [facility] [place]
--- OUTSIDE RECORDS SUMMARY | 2024-11-27 19:30 | XMS_ITS | Continuity of Care Document ---
Author Name [facility] Organization [facility] Care Team Providers Care Python Engineer Name Role Phone [facility] Unavailable Unavailable Problems Combined list of problems [...] [facility] [facility] - Coronary Artery [facility] ([facility] [id number]) Active Condition Jun 17, 2022 Entered By: PAU MARY Comment: Following with Dr. 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, 2018 Entered By: MARI SCHMID Comment: BCG- teatment ( ) cystoscopy scheduled 12/26/18 and 01/17/19 [facility] [place] [facility] Degenerative disc disease Active Condition [facility] [place] [facility] H/O cardiac surgery Active Condition Jun 22, 2017 Entered By: MARI SCHMID Comment: stent 2015 [facility] [place] [facility] History of - surgery Active [...] Colonscopy - polyps ( 5 yrs )- [facility] 2018 Entered By: MARI CSHMID Comment: 2018 bilat vein stripping ( per [...] wants MRI of lumbar spine [facility] PAD - Peripheral arterial disease Active Condition Dec 28 8 Entered By: MARI SCHMID Comment: 2nd aortogram- bil 12/19/17Au2021 Entered By: PAU MARY Comment: with caulidcation, though improved, following with Vascular-- Dr. Bear- has required multiple LE interventions, Vascular considering switchign plavix to xarelto 2.5mg bid [facility] [facility] Screening status Active Condition Dec 28, 2017 Entered By: MARI SCHMID Comment: Colonoscopy 2018 ( no result ) - per pt repeat in 5 yrs.Dec 28, 2017 Entered By: MARI SCHMID Comment: aortogram bilateral lower legs - [facility] 12/19/17 - DR SYLWIA STROUD [facility] [place] [facility] Under care of multiple providers Active Condition Dec 28, 2017 Entered By: MARI SCHMID Comment: non va- Dr Trevon Hill ( in office and the [facility])Jun 28, 2017 Entered By: MARI SCHMID Comment: Urology- Dr Petit 2018 Entered By: MARI SCHMID Comment: [facility]- ( eye/ PODIATRY) [facility] Diagnosis: ICD-10-CM K03.6 Deposits [accretions] on teeth Active Diagnosis [facility] Diagnosis: ICD-10-CM I10 Essential (primary) hypertension Active Diagnosis [facility] Diagnosis: ICD-10-CM M54.17 Radiculopathy, lumbosacral region Active Diagnosis [facility] Medications Combined list of outpatient medications from Department of Defense and [facility] facilities.Medications provided include 1) outpatient medications from the last 15 months, and 2) patient-reported medications. Medication Details Route Status Patient Instructions Prescription Expires Prescription Number Last Dispense Date Ordering Provider Order Date Order Qty Source ASPIRIN 81MG TAB,EC TAKE ONE TABLET BY MOUTH ONCE DAILY TO PREVENT STROKE/H EART ATTACK ORAL 03/29/2024 [id number] ERON MANUEL 2022 120 [facility] ATORVASTATI N CA 80MG TAB TAKE ONE TABLET BY MOUTH ONCE DAILY FOR CHOLESTE ROL ORAL ACTIVE 03/25/2025 [id number] ERON MANUEL 2023 90 [facility] ATORVASTATI N CA 80MG TAB TAKE ONE TABLET BY MOUTH ONCE DAILY FOR CHOLESTE ROL ORAL DISCONT INUED (EDIT) 03/29/2024 [id number] ERON MANUEL 2022 90 [facility] CLOPIDOGREL BISULFATE 75MG TAB TAKE ONE TABLET BY MOUTH ONCE DAILY FOR MYOCARDI AL REINFARC TION PREVENTI ON ORAL ACTIVE 03/25/2025 [id number] ERON MANUEL 2023 90 [facility] CLOPIDOGREL BISULFATE 75MG TAB TAKE ONE TABLET BY MOUTH ONCE DAILY ORAL DISCONT INUED (EDIT) 03/29/2024 [id number] ERON MANUEL 2022 90 [facility] EZETIMIBE 10MG TAB TAKE ONE TABLET BY MOUTH ONCE DAILY TO LOWER CHOLESTE ROL ORAL ACTIVE 03/25/2025 [id number] ERON MANUEL 2023 90 [facility] EZETIMIBE 10MG TAB TAKE ONE TABLET BY MOUTH ONCE DAILY TO LOWER CHOLESTE ROL ORAL DISCONT INUED (EDIT) 03/29/2024 [id number] ERON MANUEL 2022 90 [facility] HYDROCHLORO THIAZIDE 12.5MG/NISHA NOPRIL 10MG TAB TAKE 1 TABLET BY MOUTH AT BEDTIME ORAL DISCONT INUED (EDIT) 03/29/2024 [id number] ERON MANUEL 2022 90 [facility] HYDROCHLORO THIAZIDE 12.5MG/NISHA NOPRIL 20MG TAB TAKE 1 TABLET BY MOUTH AT BEDTIME FOR HIGH BLOOD PRESSURE (NOTE DOSE) ORAL ACTIVE 03/25/2025 [id number] ERON MANUEL 2023 90 [facility] METOPROLOL SUCCINATE 50MG TAB,SA TAKE ONE TABLET BY MOUTH ONCE DAILY FOR BLOOD PRESSURE /HEART ORAL ACTIVE 03/25/2025 [id number] ERON MANUEL 2023 90 [facility] METOPROLOL SUCCINATE 50MG TAB,SA TAKE ONE TABLET BY MOUTH ONCE DAILY FOR BLOOD PRESSURE /HEART ORAL DISCONT INUED (EDIT) 03/24/2024 [id number] ERON MANUEL 2022 90 [facility] NAPROXEN 500MG TAB TAKE ONE TABLET BY MOUTH TWICE DAILY NEEDED FOR PAIN TAKE WITH FOOD ORAL 10/12/2024 [id number] [place] ERON LAURA BINU Bradley 2023 90 [facility] [place] [facility] NAPROXEN 500MG TAB TAKE ONE TABLET BY MOUTH TWICE DAILY NEEDED TAKE WITH FOOD; FOR PAIN/INF LAMMATIO N/SWELLTommy NG ORAL 02/10/2024 [id number] 4 [place]ENT[place] LAURAERONDarwin Bradley 2022 180 [facility] [place] SODIUM FLUORIDE 1.1% TOOTHPASTE BRUSH SMALL AMOUNT TO TEETH TWICE DAILY FOR TOOTH DECAY PREVENTI ON DENTAL ACTIVE 09/03/2025 [id number] MIKAELA HEBERT 2023 51 [facility] [place] SODIUM FLUORIDE 1.1% TOOTHPASTE BRUSH SMALL AMOUNT TO TEETH TWICE DAILY DENTAL 06/01/2024 [id number] CRISSY MAHER 2022 204 [facility] [place] Allergies, Adverse Reactions, Alerts Combined list of allergies from Department of Defense and [facility] facilities. It does not include entries that were removed or entered in error. Substance Category Reaction Severity Reaction type Status Date Reported Comments Source PERCOCET Propensity to adverse reactions to drug (finding) Sweating active 7 [facility] [facility] Immunizations Combined list of available immunizations from the Department of Defense and Veterans Affairs facilities. Immunization Series Date Given Administered By Site Reaction Lot Number CVX Code Drug Clamp Jig Assembler Status Comments Source INFLUENZA, UNSPECIFIED FORMULATION 2022 88 complet ed [facility] [place] [facility] INFLUENZA, UNSPECIFIED FORMULATION 2021 88 complet ed [facility] COVID-19 (MODERNA), MRNA, LNP-S, PF, 100 MCG/0.5ML DOSE OR 50 MCG/0.25ML DOSE 3 2020 207 complet ed [facility] COVID-19 (MODERNA), MRNA, LNP-S, PF, 100 MCG/0.5 ML DOSE 2 2020 207 complet ed MOD; [id number]; 1 [facility] COVID-19 (MODERNA), MRNA, LNP-S, PF, 100 MCG/0.5 ML DOSE 1 2020 207 complet ed MOD; [id number]; 1 [facility] [...] [address] Hill office [facility] [place] PNEUMOCOCCAL CONJUGATE PCV 13 2016 133 complet ed [facility] ZOSTER (SHINGLES) (HISTORICAL) 2016 121 complet ed Proximal Left Arm [facility] FLU,3 YRS (HISTORICAL) [address] Sorensen office [facility] Results Combined [...] Aug 28, 2024 09:07 AM Reporting Lab: [facility] [place] [facility] [address] [facility] [address] Performing Lab: [facility] [place] [facility] [address] [facility] [address] [facility] [place] [facility] MICROALBU MIN CREATININ E RATIO PANEL MICROALBUMI N [MASS/VOLUM E] IN URINE 0.7 mg/dL 09/02 Specimen Type: URINE No comment entered. Ordering Provider: LAURIE CHINCHILLA Report Released Date/Time: Aug 28, 2024 09:07 AM Reporting Lab: [facility] [place] [facility] [address] [facility] [address] Performing Lab: [facility] [place] [facility] [address] [facility] [address] [facility] [place] [facility] MICROALBU MIN CREATININ E RATIO PANEL CREATININE [MASS/VOLUM E] IN URINE 52.17 mg/dL 09/02 Specimen Type: URINE No comment entered. Ordering Provider: LAURIE CHINCHILLA Report Released Date/Time: Aug 28, 2024 09:07 AM Reporting Lab: [facility] [place] [facility] [address] [facility] [address] Performing Lab: [facility] [place] [facility] [address] [facility] [address] [facility] [place] [facility] BASIC METABOLIC PANEL (non-fast ing) UREA NITROGEN [MASS/VOLUM E] IN SERUM OR PLASMA 33 mg/dL 7 - 25 09/02 H Specimen Type: SERUM No comment entered. Ordering Provider: LAURIE CHINCHILLA Report Released Date/Time: Aug 28, 2024 09:07 AM Reporting Lab: [facility] [place] [facility] [address] [facility] [address] Performing Lab: [facility] [place] [facility] [address] [facility] [address] [facility] [place] [facility] BASIC METABOLIC PANEL (non-fast ing) GLUCOSE [MASS/VOLUM E] IN SERUM OR PLASMA 97 mg/dL 65 - 100 09/02 Specimen Type: SERUM No comment entered. Ordering Provider: LAURIE CHINCHILLA Report Released Date/Time: Aug 28, 2024 09:07 AM Reporting Lab: [facility] [place] [facility] [address] [facility] [address] Performing Lab: [facility] [place] [facility] [address] [facility] [address] [facility] [place] [facility] BASIC METABOLIC PANEL (non-fast ing) SODIUM [MOLES/VOLU ME] IN SERUM OR PLASMA 136 mmol/L 135 - 145 09/02 Specimen Type: SERUM No comment entered. Ordering Provider: LAURIE CHINCHILLA Report Released Date/Time: Aug 28, 2024 09:07 AM Reporting Lab: [facility] [place] [facility] [address] [facility] [address] Performing Lab: [facility] [place] [facility] [address] [facility] [address] [facility] [place] [facility] BASIC METABOLIC PANEL (non-fast ing) POTASSIUM [MOLES/VOLU ME] IN SERUM OR PLASMA 4.7 mmol/L 3.5 - 5.0 09/02 Specimen Type: SERUM No comment entered. Ordering Provider: LAURIE CHINCHILLA Report Released Date/Time: Aug 28, 2024 09:07 AM Reporting Lab: [facility] [place] [facility] [address] [facility] [address] Performing Lab: [facility] [place] [facility] [address] [facility] [address] [facility] [place] [facility] BASIC METABOLIC PANEL (non-fast ing) CHLORIDE [MOLES/VOLU ME] IN SERUM OR PLASMA 106 mmol/L 100 - 110 09/02 Specimen Type: SERUM No comment entered. Ordering Provider: LAURIE CHINCHILLA Report Released Date/Time: Aug 28, 2024 09:07 AM Reporting Lab: [facility] [place] [facility] [address] [facility] [address] Performing Lab: [facility] [place] [facility] [address] [facility] [address] [facility] BASIC METABOLIC PANEL (non-fast ing) CARBON DIOXIDE, TOTAL [MOLES/VOLU ME] IN SERUM OR PLASMA 24 meq/L 20 - 30 09/02 Specimen Type: SERUM No comment entered. Ordering Provider: LAURIE CHINCHILLA Report Released Date/Time: Aug 28, 2024 09:07 AM Reporting Lab: [facility] [address] [facility] [address] Performing Lab: [facility] [address] [facility] [address] [facility] BASIC METABOLIC PANEL (non-fast ing) CREATININE [MASS/VOLUM E] IN SERUM OR PLASMA 1.40 mg/dL 0.50 - 1.40 09/02 Specimen Type: SERUM No comment entered. Ordering Provider: LAURIE CHINCHILLA Report Released Date/Time: Aug 28, 2024 09:07 AM Reporting Lab: [facility] [address] [facility] [address] Performing Lab: [facility] [address] [facility] [address] [facility] BASIC METABOLIC PANEL (non-fast ing) GLOMERULAR FILTRATION RATE/1.73 SQ M.PREDICTED [VOLUME RATE/AREA] IN SERUM, PLASMA OR BLOOD BY CREATININE- BASED FORMULA (CKD-EPI 2020) 50 mL/min 60 09/02 L Specimen Type: SERUM No comment entered. Ordering Provider: LAURIE CHINCHILLA Report Released Date/Time: Aug 28, 2024 09:07 AM Reporting Lab: [facility] [address] [facility] [address] Performing Lab: [address] [address] [facility] LIPID PANEL, NON FASTING CHOLESTEROL [MASS/VOLUM E] IN SERUM OR PLASMA 128 mg/dL 09/02 Specimen Type: SERUM No comment entered. Ordering Provider: LAURIE CHINCHILLA Report Released Date/Time: Aug 28, 2024 09:07 AM Reporting Lab: [facility] [place] [facility] [address] [facility] [address] Performing Lab: [facility] [place] [facility] [address] [facility] [address] [facility] [place] [facility] LIPID PANEL, NON FASTING TRIGLYCERID E [MASS/VOLUM E] IN SERUM OR PLASMA 69 mg/dL 0 - 150 09/02 Specimen Type: SERUM No comment entered. Ordering Provider: LAURIE CHINCHILLA Report Released Date/Time: Aug 28, 2024 09:07 AM Reporting Lab: [facility] [place] [facility] [address] [facility] [address] Performing Lab: [facility] [place] [facility] [address] [facility] [address] [facility] [place] [facility] LIPID PANEL, NON FASTING CHOLESTEROL IN LDL [MASS/VOLUM E] IN SERUM OR PLASMA BY CALCULATION 60 mg/dL 0 - 129 09/02 Specimen Type: SERUM No comment entered. Ordering Provider: LAURIE CHINCHILLA Report Released Date/Time: Aug 28, 2024 09:07 AM Reporting Lab: [facility] [place] [facility] [address] [facility] [address] Performing Lab: [facility] [place] [facility] [address] [facility] [address] [facility] [place] [facility] LIPID PANEL, NON FASTING CHOLESTEROL .TOTAL/CHOL ESTEROL IN HDL [MASS RATIO] IN SERUM OR PLASMA 2.4 09/02 Specimen Type: SERUM No comment entered. Ordering Provider: LAURIE CHINCHILLA Report Released Date/Time: Aug 28, 2024 09:07 AM Reporting Lab: [facility] [place] [facility] [address] [facility] [address] Performing Lab: [facility] [place] [facility] [address] [facility] [address] [facility] [place] [facility] LIPID PANEL, NON FASTING CHOLESTEROL IN HDL [MASS/VOLUM E] IN SERUM OR PLASMA 54 mg/dL 40 - 60 09/02 Specimen Type: SERUM No comment entered. Ordering Provider: LAURIE CHINCHILLA Report Released Date/Time: Aug 28, 2024 09:07 AM Reporting Lab: [facility] [address] [facility] [address] Performing Lab: [facility] [address] [facility] [address] [facility] TSH THYROTROPIN [UNITS/VOLU ME] IN SERUM OR PLASMA 1.43 u[IU]/ mL 0.35 - 5.00 09/02 Specimen Type: SERUM No comment entered. Ordering Provider: LAURIE CHINCHILLA Report Released Date/Time: Aug 28, 2024 09:07 AM Reporting Lab: [facility] [address] [facility] [address] Performing Lab: [address] [address] [facility] HEMOGLOBI N A1C PANEL HEMOGLOBIN A1C/HEMOGLO [...] Aug 28, 2024 09:07 AM Reporting Lab: [facility] [address] [facility] [address] Performing Lab: [facility] [address] [facility] [address] [facility] CALCIUM CALCIUM [MASS/VOLUM E] IN SERUM OR PLASMA 10.0 mg/dL 8.5 - 10.2 10/22 /2024 Specimen Type: SERUM No comment entered. Ordering Provider: LAURIE CHINCHILLA Report Released Date/Time: Aug 28, 2024 09:07 AM Reporting Lab: [facility] [place] [facility] [address] [facility] [address] Performing Lab: [facility] [place] [facility] [address] [facility] [address] [facility] [place] [facility] CBC AND DIFF (AUTO) LEUKOCYTES [#/VOLUME] IN BLOOD BY AUTOMATED COUNT 8.50 10*3/u L 4.50 - 11.00 09/02 Specimen Type: BLOOD No comment entered. Ordering Provider: LAURIE CHINCHILLA Report Released Date/Time: Aug 28, 2024 09:07 AM Reporting Lab: [facility] [place] [facility] [address] [facility] [address] Performing Lab: [facility] [place] [facility] [address] [facility] [address] [facility] [place] [facility] CBC AND DIFF (AUTO) ERYTHROCYTE S [#/VOLUME] IN BLOOD BY AUTOMATED COUNT 3.92 10*6/u L 4.23 - 5.66 09/02 L Specimen Type: BLOOD No comment entered. Ordering Provider: LAURIE CHINCHILLA Report Released Date/Time: Aug 28, 2024 09:07 AM Reporting Lab: [facility] [place] [address] [address] Performing Lab: [facility] [place] [facility] [address] [facility] [address] [facility] [place] [facility] CBC AND DIFF (AUTO) HEMOGLOBIN [MASS/VOLUM E] IN BLOOD 12.9 g/dL 12.8 - 17 09/02 Specimen Type: BLOOD No comment entered. Ordering Provider: LAURIE CHINCHILLA Report Released Date/Time: Aug 28, 2024 09:07 AM Reporting Lab: [facility] [place] [facility] [address] [facility] [address] Performing Lab: [facility] [place] [address] [address] [facility] [place] [facility] CBC AND DIFF (AUTO) HEMATOCRIT [VOLUME FRACTION] OF BLOOD BY AUTOMATED COUNT 38.0 39.2 - 50.4 09/02 L Specimen Type: BLOOD No comment entered. Ordering Provider: LAURIE CHINCHILLA Report Released Date/Time: Aug 28, 2024 09:07 AM Reporting Lab: [facility] [place] [facility] [address] [facility] [address] Performing Lab: [facility] [place] [facility] [address] [facility] [address] [facility] [place] [facility] CBC AND DIFF (AUTO) MCV [ENTITIC VOLUME] BY AUTOMATED COUNT 96.9 fL 82 - 99 09/02 Specimen Type: BLOOD No comment entered. Ordering Provider: LAURIE CHINCHILLA Report Released Date/Time: Aug 28, 2024 09:07 AM Reporting Lab: [facility] [place] [facility] [address] [facility] [address] Performing Lab: [facility] [place] [facility] [address] [facility] [address] [facility] [place] [facility] CBC AND DIFF (AUTO) MCHC [MASS/VOLUM E] BY AUTOMATED COUNT 33.9 g/dL 30.8 - 35.1 09/02 Specimen Type: BLOOD No comment entered. Ordering Provider: LAURIE CHINCHILLA Report Released Date/Time: Aug 28, 2024 09:07 AM Reporting Lab: [facility] [place] [facility] [address] [facility] [address] Performing Lab: [facility] [place] [facility] [address] [facility] [address] [facility] [place] [facility] CBC AND DIFF (AUTO) PLATELETS [#/VOLUME] IN BLOOD BY AUTOMATED COUNT 259 10*3/u L 140 - 360 09/02 Specimen Type: BLOOD No comment entered. Ordering Provider: LAURIE CHINCHILLA Report Released Date/Time: Aug 28, 2024 09:07 AM Reporting Lab: [facility] [place] [facility] [address] [facility] [address] Performing Lab: [facility] [place] [facility] [address] [facility] [address] [facility] [place] [facility] CBC AND DIFF (AUTO) ERYTHROCYTE DISTRIBUTIO N WIDTH [RATIO] BY AUTOMATED COUNT 12.2 12.0 - 16.0 09/02 Specimen Type: BLOOD No comment entered. Ordering Provider: LAURIE CHINCHILLA Report Released Date/Time: Aug 28, 2024 09:07 AM Reporting Lab: [facility] [place] [facility] [address] [facility] [address] Performing Lab: [facility] [place] [facility] [address] [facility] [address] [facility] [place] [facility] CBC AND DIFF (AUTO) MONOCYTES [#/VOLUME] IN BLOOD BY AUTOMATED COUNT 0.76 10*3/u L 0.30 - 1.10 09/02 Specimen Type: BLOOD No comment entered. Ordering Provider: LAURIE CHINCHILLA Report Released Date/Time: Aug 28, 2024 09:07 AM Reporting Lab: [facility] [place] [facility] [address] [facility] [address] Performing Lab: [facility] [place] [facility] [address] [facility] [address] [facility] [place] [facility] CBC AND DIFF (AUTO) MCH [ENTITIC MASS] BY AUTOMATED COUNT 32.9 pg 26.2 - 32.6 09/02 H Specimen Type: BLOOD No comment entered. Ordering Provider: LAURIE CHINCHILLA Report Released Date/Time: Aug 28, 2024 09:07 AM Reporting Lab: [facility] [place] [facility] [address] [facility] [address] Performing Lab: [facility] [place] [facility] [address] [facility] [address] [facility] [place] [facility] CBC AND DIFF (AUTO) NEUTROPHILS /100 LEUKOCYTES IN BLOOD BY AUTOMATED COUNT 72.2 43.7 - 75.8 09/02 Specimen Type: BLOOD No comment entered. Ordering Provider: LAURIE CHINCHILLA Report Released Date/Time: Aug 28, 2024 09:07 AM Reporting Lab: [facility] [place] [facility] [address] [facility] [address] Performing Lab: [facility] [place] [facility] [address] [facility] [address] [facility] CBC AND DIFF (AUTO) LYMPHOCYTES /100 LEUKOCYTES IN BLOOD BY AUTOMATED COUNT 14.6 14.0 - 42.3 09/02 Specimen Type: BLOOD No comment entered. Ordering Provider: LAURIE CHINCHILLA Report Released Date/Time: Aug 28, 2024 09:07 AM Reporting Lab: [facility] [address] [facility] [address] Performing Lab: [facility] [place] [facility] [address] [facility] [address] [facility] [place] CBC AND DIFF (AUTO) MONOCYTES/1 00 LEUKOCYTES IN BLOOD BY AUTOMATED COUNT 8.9 5.1 - 13.7 09/02 Specimen Type: BLOOD No comment entered. Ordering Provider: LAURIE CHINCHILLA Report Released Date/Time: Aug 28, 2024 09:07 AM Reporting Lab: [facility] [address] [facility] [address] Performing Lab: [facility] [address] [facility] [address] [facility] [place] CBC AND DIFF (AUTO) EOSINOPHILS /100 LEUKOCYTES IN BLOOD BY AUTOMATED COUNT 3.5 0.4 - 6.8 09/02 Specimen Type: BLOOD No comment entered. Ordering Provider: LAURIE CHINCHILLA Report Released Date/Time: Aug 28, 2024 09:07 AM Reporting Lab: [facility] [address] [facility] [address] Performing Lab: [facility] [place] [address] [facility] [address] [facility] [place] [facility] CBC AND DIFF (AUTO) BASOPHILS/1 00 LEUKOCYTES IN BLOOD BY AUTOMATED COUNT 0.6 0.1 - 2.0 09/02 Specimen Type: BLOOD No comment entered. Ordering Provider: LAURIE CHINCHILLA Report Released Date/Time: Aug 28, 2024 09:07 AM Reporting Lab: [facility] [place] [address] [address] Performing Lab: [facility] [place] [address] [address] [facility] [place] [facility] CBC AND DIFF (AUTO) NEUTROPHILS [#/VOLUME] IN BLOOD BY AUTOMATED COUNT 6.13 10*3/u L 2.20 - 7.60 09/02 Specimen Type: BLOOD No comment entered. Ordering Provider: LAURIE CHINCHILLA Report Released Date/Time: Aug 28, 2024 09:07 AM Reporting Lab: [facility] [place] [address] [address] Performing Lab: [facility] [place] [facility] [address] [facility] [address] [facility] CBC AND DIFF (AUTO) LYMPHOCYTES [#/VOLUME] IN BLOOD BY AUTOMATED COUNT 1.24 10*3/u L 1.00 - 3.20 09/02 Specimen Type: BLOOD No comment entered. Ordering Provider: LAURIE CHINCHILLA Report Released Date/Time: Aug 28, 2024 09:07 AM Reporting Lab: [facility] [place] [address] [address] Performing Lab: [facility] [place] [address] [address] [facility] [facility] CBC AND DIFF (AUTO) EOSINOPHILS [#/VOLUME] IN BLOOD BY AUTOMATED COUNT 0.30 10*3/u L 0.03 - 0.44 09/02 Specimen Type: BLOOD No comment entered. Ordering Provider: LAURIE CHINCHILLA Report Released Date/Time: Aug 28, 2024 09:07 AM Reporting Lab: [facility] [place] [facility] [address] [facility] [address] Performing Lab: [facility] [place] [facility] [address] [facility] [address] [facility] [place] [facility] CBC AND DIFF (AUTO) BASOPHILS [#/VOLUME] IN BLOOD BY AUTOMATED COUNT 0.05 10*3/u L 0.01 - 0.13 09/02 Specimen Type: BLOOD No comment entered. Ordering Provider: LAURIE CHINCHILLA Report Released Date/Time: Aug 28, 2024 09:07 AM Reporting Lab: [facility] [place] [facility] [address] [facility] [address] Performing Lab: [facility] [place] [facility] [address] [facility] [address] [facility] [place] [facility] CBC AND DIFF (AUTO) IMMATURE GRANULOCYTE S/100 LEUKOCYTES IN BLOOD BY AUTOMATED COUNT 0.2 0.0 - 0.7 09/02 Specimen Type: BLOOD No comment entered. Ordering Provider: LAURIE CHINCHILLA Report Released Date/Time: Aug 28, 2024 09:07 AM Reporting Lab: [facility] [place] [facility] [address] [facility] [address] Performing Lab: [facility] [place] [facility] [address] [facility] [address] [facility] [place] [facility] CBC AND DIFF (AUTO) IMMATURE GRANULOCYTE S [#/VOLUME] IN BLOOD 0.02 10*3/u L 0.00 - 0.06 09/02 Specimen Type: BLOOD No comment entered. Ordering Provider: LAURIE CHINCHILLA Report Released Date/Time: Aug 28, 2024 09:07 AM Reporting Lab: [facility] [place] [facility] [address] [facility] [address] Performing Lab: [facility] [place] [facility] [address] [facility] [address] [facility] [place] [facility] CBC AND DIFF (AUTO) NRBC % 0.0 0.0 - 0.0 09/02 Specimen Type: BLOOD No comment entered. Ordering Provider: LAURIE CHINCHILLA Report Released Date/Time: Aug 28, 2024 09:07 AM Reporting Lab: [facility] [place] [facility] [address] [facility] [address] Performing Lab: [facility] [place] [facility] [address] [facility] [address] [facility] [place] CBC AND DIFF (AUTO) NRBC, ABS 0.00 10*3/u L 0.00 - 0.00 09/02 Specimen Type: BLOOD No comment entered. Ordering Provider: LAURIE CHINCHILLA Report Released Date/Time: Aug 28, 2024 09:07 AM Reporting Lab: [facility] [place] [facility] [address] [facility] [address] Performing Lab: [facility] [place] [facility] [address] [facility] [address] [facility] [place] [facility] Vital Signs Combined list of [...] [facility] 2) Encounters from the Department of Defense facilities going back up to 280 months. Location Location Details Encounter Type Encounter Number Reason For Visit Attending Provider ADM Date DC Date Status Disposition Source [facility] En[facility] [id number] 05/30 [facility] [place] En[facility] [id number] 06/07 [facility] [place] En[facility] [id number] 06/29 [facility] [place] En[facility] [id number] 07/13 [facility] [place] En[facility] [id number] 08/08 [facility] [place] En[facility] [id number] 08/14 [facility] [place] En[facility] [id number] 08/17 [facility] CLEAN/INSP ECT JOSE PART DENT [id number] Diagnos is: ICD-10- CM K03.6 Deposit s [accret ions] on teeth<b r/> Dewayne TAFOYA 08/21 [facility] DENTAL BITEWING FOUR IMAGES [id number] Diagnos is: ICD-10- CM K03.6 Deposit s [accret ions] on teeth<b r/> CRISSY MAHER 08/21 [facility] [place] En[facility] [id number] 08/30 [facility] [place] En[facility] [id number] 11/28 [facility] En[facility] [id number] 01/31 [facility] [place] En[facility] [id number] 02/06 [facility] [place] En[facility] [id number] 02/21 [facility] [place] CLEAN/INSP ECT JOSE PART DENT [id number] Diagnos is: ICD-10- CM K03.6 Deposit s [accret ions] on teeth<b r/> Dewayne TAFOYA 02/24 [facility] En[facility] [id number] 03/05 [facility] [place] [place] [facility] OFFICE O/P EST MOD 30 MIN [id number] Diagnos is: ICD-10- CM M54.17 Radicul opathy, lumbosa cral region< br/> LAURIE MARCUM 03/24 [facility] En[facility] [id number] 05/01 [facility] [place] OFF/OP EST MAY X REQ PHY/QHP [id number] 1. Diagnos is: ICD-10- CM I10 Essenti al (primar y) hyperte nsion<b r/> FLORESITA KEITH H 06/26 [facility] [id number] 1.07/09 [facility] [place] [id number] 1.08/27 [facility] [place] [id number] 1.09/01 [facility] [place] [place] [id number] 1.09/01 [facility] [place] [place] [facility] CLEAN/INSP ECT JOSE PART DENT [id number] Diagnos is: ICD-10- CM K03.6 Deposit s [accret ions] on teeth<b r/> Dewayne TAFOYA ADEZHDA 09/02 [facility] [place] En[facility] [id number] 09/02 [facility] [place] En[facility] [id number] 10/03 [facility] [place] [facility] Social History Combined list of available smoking, tobacco, and other social history from Department of Defense and Veterans Affairs facilities. Social History Type Response Date Comment Sourc e Tobacco smoking status MNIS VA-TOBACCO NEVER USED 03/24/2024 [facility] [place] [facility] History of tobacco use AR-TOBACCO FORMER USER 03/29/2023 [facility] [place] [facility] History of tobacco use AR-TOBACCO FORMER USER 02/10/2022 [facility] [place] [facility] History of tobacco use AR-TOBACCO FORMER USER 01/14/2021 [facility] [place] [facility] History of tobacco use AR-TOBACCO FORMER USER 12/23/2018 [facility] [place] [facility] of [facility]23[facility]2018 [facility] [place] [facility] History of tobacco use LIFETIME NON-TOBACCO USER 06/22/2017 [facility] [place] [facility]
== END 2024-11-27 14:40 | disposition home or self-care (01) ==
LOC: HO.NEURO 14:39
PROVIDERS: PCP Internal Medicine Medical Oncology; Visit Provider Physician Assistant
DX: M43.16 Spondylolisthesis, lumbar region (principal)
CPT/HCPCS: 95886; 95909

== ENCOUNTER → 2024-11-27 14:44 | Outpatient (BNV) | payer MEDICARE, SELFPAY | PROVIDERS: PCP Internal Medicine Medical Oncology; Visit Provider Physical Medicine & Rehabilitation | DX: M43.16 Spondylolisthesis, lumbar region (principal) | CPT/HCPCS: 95886; 95909 ==

== ENCOUNTER 2025-02-03 07:56 | Outpatient (REF) | payer MEDICARE, SELFPAY ==
[2025-02-03 11:22] LABS: MANUAL DIFF FLAG NO
[2025-02-03 11:30] LABS: Basophils Absolute Auto 0.1 X10*3/uL (0.0-0.2); Basophils Percent Auto 1.2 % (0-2); Eosinophils Absolute Auto 0.2 X10*3/uL (0.0-0.4); Eosinophils Percent Auto 4.8 % (0-4); Hematocrit 38.4 % (42.0-52.0); Hemoglobin 12.6 g/dl (14.0-18.0); Imm Gran Abs Auto 0.01 X10*3/uL (0.00-0.03); Imm Gran Pct Auto 0.2 % (0.0-0.4); Lymphocytes Absolute Auto 1.4 X10*3/uL (1.2-4.9); Lymphocytes Percent Auto 28.3 % (20-40); Mean Corpuscular HGB Conc 32.8 g/dl (31.0-36.0); Mean Corpuscular Hemoglobin 31.7 pg (27.0-33.0); Mean Corpuscular Volume 96.7 fL (80.0-98.0); Mean Platelet Volume 9.4 fL (9.4-12.4); Monocytes Absolute Auto 0.6 X10*3/uL (0.1-1.2); Neutrophils Absolute Auto 2.7 x10*3/uL (2.0-8.3); Neutrophils Percent Auto 54.5 % (45-73); Platelet Count 267 X10*3/uL (160-400); Red Blood Count 3.97 X10*6/uL (4.60-5.80); Red Cell Distribution Width 13.3 % (11.0-16.0)
[2025-02-03 12:10] LABS: Alanine Aminotransferase 16 U/L (0-40); Albumin Level 3.7 g/dL (3.5-5.0); Alkaline Phosphatase 107 U/L (39-117); Anion Gap 10 (12-20); Aspartate Amino Transferase 30 U/L (5-37); Bilirubin Total 0.5 mg/dL (0.0-1.0); Blood Urea Nitrogen 29 mg/dL (9-16); Calcium 9.6 mg/dL (8.4-10.2); Carbon Dioxide 26 mmol/L (22-29); Chloride 106 mmol/L (96-108); Cholesterol 122 mg/dL (<200); Estimated Glomerular Filt Rate 54; Glucose Fasting 87 mg/dL (60-99); HDL Cholesterol 54 mg/dL (>40); LDL Cholesterol Calculated 57 mg/dL (<100); Potassium 4.6 mmol/L (3.3-5.1); Sodium 137 mmol/L (135-145); Total Protein 6.7 g/dL (6.5-8.0); Triglycerides 56 mg/dL (<150)
[2025-02-03 12:21] LABS: Prostate Specific Antigen 2.83 ng/mL (<0.05-4.0)
== END 2025-02-03 07:57 | disposition home or self-care (01) ==
LOC: HO.WFDLDS 07:56
PROVIDERS: Visit Provider Internal Medicine Medical Oncology
DX: E78.5 Hyperlipidemia, unspecified (principal); E66.3 Overweight; N40.0 Benign prostatic hyperplasia without lower urinary tract symptoms; Z12.5 Encounter for screening for malignant neoplasm of prostate
CPT/HCPCS: 36415; 80053; 80061; 84153; 85025

== ENCOUNTER 2025-03-19 08:03 | Outpatient (REF) | payer MEDICARE, SELFPAY ==
--- OUTSIDE RECORDS SUMMARY | 2025-03-19 08:08 | XMS_ITS ---
Author Organization Trevon Colby III, MD Address [address] [place] [place] [address] Care Team Providers Care Design Drafter Name Role Phone Trevon Colby Primary Care [...] Provider Diagnosis Trevon Colby III, MD [address] [place] [address] [place] [address] 01/20/2025 Trevon Colby Plan Of Treatment Medication Medication Name Sig Start Date Stop Date Notes Ezetimibe 10 MG 1 tablet Orally Once a day for 90 days 01/20/2025 Atorvastatin Calcium 80 MG 1 tablet Oral ly Once a day for 90 days 01/20/2025 Next Appt Details Provider Name:Trevon Colby, 05/05/2025 09:30:00 AM, [address] [place] [address] J[address] [place], [address], Progress Notes * Spencer PRICEDOB:[birth year] (79 yo M)Acc No.[id number]:01/20/2025 Patient:?Spencer PRICE :1945???Age:79 Y???Sex:Male Address: [address] [place], [address] * Refills? Start Ezetimibe Tablet, 10 MG, Orally, 90 Tablet, 1 tablet, Once a day, 90 days, Refills=3 Start Atorvastatin Calcium Tablet, 80 MG, Orally, 90 Tablet, 1 tablet, Once a day, 90 days, Refills=3 * true * Date:? Generated for Allison jimenez/Bhavin/eTreinasmitting on:?03/19/2025 08:08 AM EDT
--- OUTSIDE RECORDS SUMMARY | 2025-03-19 08:09 | XMS_ITS ---
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) [...] Provider Diagnosis Trevon Colby III, MD [address] [place] [address] [place] [address] 02/11/2025 Trevon Colby Injury of left peron [...] Reason: ov review labs Provider Name:Trevon Colby, 05/05/2025 09:30:00 AM, [address] [place] [address] [address] DANIELSON, [place], [address], Progress Notes * Princess PRICE:[birth year] (79 yo M)Acc No.[id number]:02/11/2025 Progress Notes Patient:Spencer GARAY Provider:?Trevon Colby MD :1945???Age:79 Y???Sex:Male Blas e:02/11/2025 Address:[address] [place] [address], [facility] Subjective: * Chief Complaints: * ???Recent spine surgeryPerip heral arterial diseaseNumbness in both feetLeft peroneal nerve injurySpinal stenosisBenign prostatic hypertrophyEmphysemaChronic renal diseaseCoronary artery diseaseHistory of bladder cancer * HPI: ???COVID-19 Screening:?He returns for a scheduled visit to manage his numerous medical issues at the age of 79.? On September 18, 2025 at [facility] by Dr. Baltazar he had and L2 and L5 oblique lateral interbody fusion for chronic pain and stenosis.? He had previously had an L3-4 and 5, laminectomy.? Since that time he is complaining that his left leg is numb and painful.? The right leg also has a known foot.? He described a sense tingling.? He went back to see the surgeon and had an EMG which showed an unresponsive left peroneal nerve at the L5-S1 level.? He is able to walk without a dropped foot.? He says he is able to live with the tingling and numbness.? Both feet were pink and warm today with no signs of ischemic tissue loss. The right hip remains painful.? He is rising from sleep once or twice a night to urinate.? He has much less lumbar pain than before.? He is not smoking.? He denies any gross hematuria and is up-too-date with his urologist.? He is short of breath with exertion from emphysema but quite comfortable at rest.? He has had no infections. ?Questions?Have you had any new onset fever, chills, cough, congestion, sore throat, shortness of breath, muscle aches??No * ROS:?General/Constitutional:?pain?Hips, left foot.?Chills?denies.?Fatigue?admits.?Fever?denies.?ENT:?Decreased hearing?denies.?Respiratory:?Cough?denies.?Cardiovascular:?Chest pain with exertion?denies.?Dyspnea on exertion?with moderate activity.?Shortness of breath?with exertion.?Gastrointestinal:?Constipation?occasional.?Decreased appetite?denies.?Diarrhea?denies.?Heartburn?denies.?Nausea?denies.?Rectal bleeding?denies.?Vomiting?denies.?Hematology:?bruising?denies.?petechiae?denies.?Swollen glands?none have been noted.?Genitourinary:?Frequent urination?once a night.?Musculoskeletal:?Muscle aches?denies.?Painful joints?denies.?Sciatica?denies.?Weakness?denies.?Skin:?Itching?denies.?Rash?denies.?Skin lesion(s)?denies.?Neurologic:?Difficulty speaking?denies.?Dizziness?denies.?Headache?denies.?Low back pain?that is chronic.?Psychiatric:?Depressed mood?which is mild.? * Medical History:? * Surgical History:?herniorrha phy appendectomy Hip replacement right Cataract surgery both eyes 2011colonoscopy, tubular adenoma 2003colonoscopy, negative 2007colonoscopy, negative 2012cardiac catheterization with stent insertion, inferior wall ischemia, 99% right coronary artery stenosis 2016left iliofemoral endarterectomy 2016right common femoral artery angioplasty 2016carpal tunnel surgery right hand, Instrum 04/2018carpal tunnel right hand 10/2019Angiogram Dr. Bear 1Lumbar L3-5 Laminectomy, partial facetectomy, foraminotomy, [facility], Dr Baltazar 3Angioplasty right peroneal and popliteal artery 1Right popliteal and peroneal artery atherectomy and angioplasty 12/2017Left femoral endarterectomy, right superficial Femoral artery atherectomy and angioplasty 06/[id number] fusion [facility] [place] 09/18/2024 * Hospitalization/Major Diagno stic Procedure:?Back surgery [...] years ?Additional Findings: Tobacco Non-User?Ex-cigarette smoker * Medications:?TakingNaproxen 500 MG Tablet 1 tablet with food [...] - Allergyno[Allergies Verified] Objective: * Vitals:?Ht: 66, Wt:173, BMI: 27.92, BP:139/59, HR:60, Temp:97.3, Ht-cm: 167.64, Wt-k.47. * ???Past Orders: Lab:Prostate Specific Antige n * Collection [...] Blood Count 5.0 (Ref Range: 4.8-10.8 X10*3/uL) 11.7?H (Ref Range: 4.8-10.8 X10*3/uL) 5.0 (Ref Range: 4.8-10.8 X10*3/uL) Red Blood Count 3.97?L (Ref Range: 4.60-5.80 X10*6/uL) 2.89?L (Ref Range: 4.60-5.80 X10*6/uL) 3.68?L (Ref Range: 4.60-5.80 X10*6/uL) Hemoglobin 12.6?L (Ref Range: 14.0-18.0 g/dl) 9.9?L (Ref Range: 14.0-18.0 g/dl) 12.5?L (Ref Range: 14.0-18.0 g/dl) Hematocrit 38.4?L (Ref Range: 42.0-52.0 %) 29.0?L (Ref Range: 42.0-52.0 %) 37.0?L (Ref Range: 42.0-52.0 %) Mean Corpuscular Volume 96.7 (Ref Range: 80.0-98.0 fL) 100.3?H (Ref Range: 80.0-98.0 fL) 100.5?H (Ref Range: 80.0-98.0 fL) Mean Corpuscular Hemoglobin 31.7 (Ref Range: 27.0-33.0 pg) 34.3?H (Ref Range: 27.0-33.0 pg) 34.0?H (Ref Range: 27.0-33.0 pg) Mean Corpuscular HGB [...] Percent Auto 54.5 (Ref Range: 45-73 %) 79.4?H (Ref Range: 45-73 %) 48.1 (Ref Range: 45-73 %) Imm Gran Pct Auto 0.2 (Ref Range: 0.0-0.4 %) 0.6?H (Ref Range: 0.0-0.4 %) 0.4 (Ref Range: 0.0-0.4 %) Lymphocytes Percent Auto 28.3 (Ref Range: 20-40 %) 8.3?L (Ref Range: 20-40 %) 28.7 (Ref Range: 20-40 %) Monocytes Percent Auto 11.0 (Ref Range: 2-11 %) 11.4?H (Ref Range: 2-11 %) 12.5?H (Ref Range: 2-11 %) Eosinophils Percent Auto 4.8?H (Ref Range: 0-4 %) 0.1 (Ref Range: 0-4 %) 9.1?H (Ref Range: 0-4 %) Basophils Percent Auto 1.2 (Ref Range: 0-2 %) 0.2 (Ref Range: 0-2 %) 1.2 (Ref Range: 0-2 %) NRBC Pct Auto 0.0 (Ref Range: 0.0-0.2 /100WBC) 0.0 (Ref Range: 0.0-0.2 /100WBC) 0.0 (Ref Range: 0.0-0.2 /100WBC) Neutrophils Absolute Auto 2.7 (Ref Range: 2.0-8.3 x10*3/uL) 9.3?H (Ref Range: 2.0-8.3 x10*3/uL) 2.4 (Ref Range: 2.0-8.3 x10*3/uL) Imm Gran Abs Auto 0.01 (Ref Range: 0.00-0.03 X10*3/uL) 0.07?H (Ref Range: 0.00-0.03 X10*3/uL) 0.02 (Ref Range: 0.00-0.03 X10*3/uL) Lymphocytes Absolute Auto 1.4 (Ref Range: 1.2-4.9 X10*3/uL) 1.0?L (Ref Range: 1.2-4.9 X10*3/uL) 1.4 (Ref Range: 1.2-4.9 X10*3/uL) Monocytes Absolute Auto 0.6 (Ref Range: 0.1-1.2 X10*3/uL) 1.3?H (Ref Range: 0.1-1.2 X10*3/uL) 0.6 (Ref Range: 0.1-1.2 X10*3/uL) Eosinophils Absolute Auto 0.2 (Ref Range: 0.0-0.4 X10*3/uL) 0.0 (Ref Range: 0.0-0.4 X10*3/uL) 0.5?H (Ref Range: 0.0-0.4 X10*3/uL) Basophils Absolute Auto 0.1 (Ref Range: 0.0-0.2 X10*3/uL) 0.0 (Ref Range: 0.0-0.2 X10*3/uL) 0.1 (Ref Range: 0.0-0.2 X10*3/uL) NRBC Abs Auto 0.000 (Ref Range: 0.0-0.012 X10*3/uL) 0.000 (Ref Range: 0.0-0.012 X10*3/uL) 0.000 (Ref Range: 0.0-0.012 X10*3/uL) * Lab:[facility] * Collection Date 02/03/2025 07/24/2024 04/21/2024 Collection [...] 29 (Ref Range: 22-29 mmol/L) Anion Gap 10?L (Ref Range: 12-20) 10?L (Ref Range: 12-20) 8?L (Ref Range: 12-20) Blood Urea Nitrogen 29?H (Ref Range: 9-16 mg/dL) 32?H (Ref Range: 9-16 mg/dL) 35?H (Ref Range: 9-16 mg/dL) Creatinine 1.28 (Ref Range: 0.5-1.4 mg/dL) 1.48?H (Ref Range: 0.5-1.4 mg/dL) 1.45?H (Ref Range: 0.5-1.4 mg/dL) Estimated Glomerular Filt [...] Order Date 11/17/2024 05/12/2024 08/08/2023 * Examination: ???General Examination: ?GENERAL APPEARANCE:?pleasant, well nourished, well developed, in no acute distress, calm and relaxed, overweight, elderly man.?HEAD:?atraumatic, normocephalic.?EYES:?eomi, perrla, anicteric, conjugate.?EARS:?normal.?NOSE:?septum intact.?ORAL CAVITY:?normal, unremarkable.?NECK/THYROID:?no jugular venous distention, no carotid bruit, thyroid normal.?LYMPH NODES:?no enlarged lymph nodes,spleen normal.?SKIN:?no suspicious lesions, anicteric.?HEART:?no clicks, gallops, murmurs, or rubs, regular rhythm, S1, S2 normal, no s3, or vascular bruits.?LUNGS:?, diminished breath sounds throughout, no wheezes, rales, rhonchi, good air movement.?BREASTS:??no masses palpable bilaterally.?ABDOMEN:?bowel sounds normal, no ascites, no organomegaly, no mass, overweight.?RECTAL EXAM:?not examined.?MUSCULOSKELETAL:?extremities unremarkable, no clubbing, cyanosis or edema,Feet? are pink and warm.?PERIPHERAL PULSES:?normal.?NEUROLOGIC:?alert and oriented, cranial nerves 2-12 grossly intact, deep tendon reflexes 2+ symmetrical, motor strength normal upper and lower extremities, sensory exam Decreased sensation left foot.?PSYCH:?alert, oriented.? Assessment: * Assessment: 1.?Injury of left peroneal n erve, sequela - S84.12XS (Primary)???Notes :the EMG Indicates an injury at L5-S1.? This is likely entire operative.? We have discusssed the healing of nerve tissue ttoday.???2.?Hyperlipidemia - E78.5???Notes :His total cholesterol level is 120. His lipids are in near target range. No change in his medications was made. His lipids were reviewed. He will have fasting lipid profile in the near future.???3.?Stage 2 chronic kidney disease - N18.2???Notes :His GFR has improved substantially since his last blood test.? His urinary tract is currently asymptomatic.???4.?Osteoarthritis of right hip - M16.11???Notes :.? He describes a hip pain as mild today.???5.?Overweight - E66.3???Notes :His body mass index is 27. He has gained 3 pounds since his last visit. We reviewed his weight loss strategy and discussed this.???6.?Spinal stenosis, lumbar - M48.06???Notes :The lumbar fusiontook place without side effects or incidents. He notices a substantial improvement in his back pain. The wound is well-healed. He reports much less pain with ambulation.???7.?BPH (benign prostatic hyperplasia) - N40.0???Notes :He arises from sleep once or twice a night to urinate. We have discussed lifestyle modifications he could make to reduce nocturia.???8.?Former smoker - Z87.891???Notes :He is highly motivated not to smoke and we discussed means of preserving abstinence in times of stress.???9.?Peripheral vascular disease - I73.9???Notes :He has significant [...] March 2024 and was thought to be stable.??? Plan: * Treatment: 2.?Stage 2 chronic kidney di sease?LAB: PROFILE, FASTING (COMPREHENSIVE METABOLIC) ?LAB: CBC w DIFF ?LAB: Lipid Panel 3.?Osteoarthritis of right h ip?LAB: PROFILE, FASTING (COMPREHENSIVE METABOLIC) ?LAB: CBC w DIFF ?LAB: Lipid Panel * Procedure Codes:? * Preventive Medicine:? ??Counseling:?Care goal follow-up plan:?Counseling for abnormal BMI given?Yes ?Above Normal BMI Follow-up?Dietary needs education, Exercise promotion: strength training ?Smoking/Tobacco Use?Patient counseled on the dangers of tobacco use and urged to quit.?02/11/2025 * Follow Up:?4 Months (Reason: ov review labs) * Images: * Sign off status: Completed true * Provider:?Treovn Colby MD Date:?12/2024 Generated for Allison jimenez/Bhavin/Alexsmitting on:?03/19/2025 08:09 AM EDT History and Physical Notes * [...]
--- OUTSIDE RECORDS SUMMARY | 2025-03-19 08:09 | XMS_ITS | Patient Health Record ---
Author Organization Trevon Colby III, MD Address [address] [place] [address] [place] [address] Care Team Providers Care Social Contact Worker Name Role Phone Trevon Colby Primary Care Provider [phone] Allergies Allergen (clinical drug ingredient) Drug/Non Drug [...] 0.2 - 1.3 BLD Negative Negative - Complete Blood Count Auto Di ff Reviewed date:04/22/2024 05:00:36 PM Interpretation: Performing Lab:[facility], [address] [place] [phone] Notes/Report: White Blood Count 5.2 4.8-10.8 X10*3/uL [...] NRBC Abs Auto 0.000 0.0-0.012 X10*3/uL Comprehensive [place]. Panel Fa st Reviewed date:04/22/2024 05:00:36 PM Interpretation: Performing Lab:[facility], [address] [place] [phone] Notes/Report: Sodium 137 135-145 mmol/L Potassium 4.3 3.3-5.1 mmol/L Chloride 104 96-108 mmol/L Carbon Dioxide 29 22-29 mmol/L Anion Gap 8 12-20 Blood Urea Nitrogen 35 9-16 mg/dL Creatinine 1.45 0.5-1.4 mg/dL Estimated Glomerular Filt Rate 47 NOTE: For -Gabonese individuals, multiply the result by 1.210. Chronic [...] Panel Reviewed date:04/22/2024 05:00:36 PM Interpretation: Performing Lab:[facility], [address] [place] [phone] Notes/Report: Triglycerides 61 <150 mg/dL Desirable Triglyceride: [...] Antigen Reviewed date:04/22/2024 05:00:36 PM Interpretation: Performing Lab:[facility], [address] [place] [phone] Notes/Report: Prostate Specific Antigen 3.57 <0.05-4.0 ng/mL PSA methodology: Chavez Alinity i Chemiluminescent Microparticle Immunoassay (CMIA) XR lumbar spine 4V min Reviewed date:07/27/2024 05:58:52 AM Interpretation: Performing Lab: Notes/Report: [facility] [address] [place] [address] XRay Report Signed Patient: Spencer Price MR#: [id number] : 1945 Acct:[id number] Age/Sex: 78 / M ADM Date: 05/12/24 Loc: MELVIN Attending Dr: Vikram RUVALCABA Ordering Physician: Vikram Grant Date of Service: 05/12/24 Procedure(s): XR lumbar spine 4V min Accession Number(s): [id number] cc: Trevon Colby MD; Vikram Grant EXAMINATION: [...] in OV> 06/04/24 0711 DD/ 1534 TD/TT: Monorail Operator: [facility] [address] [place] [address] XRay Report Signed Patient: Spencer Price MR#: [id number] : 1945 Acct:[id number] Age/Sex: 78 / M ADM Date: 05/12/24 Loc: HO.HOSX Attending Dr: Vikram RUVALCABA Ordering Physician: Vikram Grant Date of Service: 05/12/24 Procedure(s): XR lum bar spine 4V min Accession Number(s): [id number] cc: Trevon Colby MD; Vikram Grant EXAMINATION: [...] in OV> 06/04/24 0711 DD/ 1534 TD/TT: Monorail Operator: MR lumbar spine wo con Reviewed date:07/27/2024 05:58:52 AM Interpretation: Performing Lab: Notes/Report: [address] [address] Magnetic Resonance Report Signed Patient: Spencer Price MR#: [id number] : 1945 Acct:[id number] Age/Sex: 78 / M ADM Date: 05/27/24 Loc: HO.MRI Attending Dr: Vikram RUVALCABA Ordering Physician: Vikram Grant Date of Service: 05/27/24 Procedure(s): MR lumbar spine wo con Accession Number(s): [id number] cc: Trevon Colby MD; Vikram Grant EXAMINATION: [...] in OV> 06/05/24 1505 DD/ 1510 TD/TT: Monorail Operator: [place] [address] Magnetic Resonance Report Signed Patient: Spencer Price MR#: [id number] : 1945 Acct:[id number] Age/Sex: 78 / M ADM Date: 05/27/24 Loc: HO.MRI Attending Dr: Vikram RUVALCABA Ordering Physician: Vikram Grant Date of Service: 05/27/24 Procedure(s): MR lum bar spine wo con Accession Number(s): [id number] cc: Trevon Colby MD; Vikram Grant EXAMINATION: MR LUMBAR SPINE WITH OUT CONTRAST CLINICAL INFORMATION: Low back pain, lumba r radiculopathy COMPARISON: MRI lumbar spine on 06/07/2023 TECHNIQUE: MRI of the lumbar sp ine was obtained using routine sequences without contrast. 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 The visualized [...] in OV> 06/05/24 1505 DD/ 1510 TD/TT: Monorail Operator: Complete Blood Count Auto Lyssa ff Reviewed date:07/27/2024 05:58:52 AM Interpretation: Performing Lab:[facility], [address] [place] [phone] Notes/Report: White Blood Count 5.0 4.8-10.8 X10*3/uL [...] NRBC Abs Auto 0.000 0.0-0.012 X10*3/uL Comprehensive [place]. Panel Fa st Reviewed date:07/27/2024 05:58:52 AM Interpretation: Performing Lab:[facility], [address] [place] [phone] Notes/Report: Sodium 137 135-145 mmol/L Potassium 4.8 3.3-5.1 mmol/L Chloride 106 96-108 mmol/L Carbon Dioxide 26 22-29 mmol/L Anion Gap 10 12-20 Blood Urea Nitrogen 32 9-16 mg/dL Creatinine 1.48 0.5-1.4 mg/dL Estimated Glomerular Filt Rate 46 NOTE: For -Gabonese individuals, multiply the result by 1.210. Chronic [...] Panel Reviewed date:07/27/2024 05:58:52 AM Interpretation: Performing Lab:[facility], [address] [place] [phone] Notes/Report: Triglycerides 60 <150 mg/dL Desirable Triglyceride: [...] Antigen Reviewed date:07/27/2024 05:58:52 AM Interpretation: Performing Lab:[facility], [address] [place] [phone] Notes/Report: Prostate Specific Antigen 2.80 <0.05-4.0 ng/mL PSA methodology: Chavez Alinity i Chemiluminescent Microparticle Immunoassay (CMIA) Type and Screen Reviewed date:09/07/2024 06:31:42 AM Interpretation: Performing Lab:[facility], [address] [place] [phone] Notes/Report: WITNESSED BY THE NURSING: Call Blood Bank (ext. [phone]) to band patient on admission. Type and Screen in effect until 0 on 09-17-2024 Spec expiration changed by SHOBHA on 09/03/24 Reason: PAT SPEC 09/17/24 Blood Type OP Antibody Screen NEGATIVE Glucose, Whole Blood Reviewed date:09/18/2024 09:17:25 AM Interpretation: Performing Lab:[facility], [address] [place] [phone] Notes/Report: Glucose, Whole Blood 178 60-115 mg/dL METER # : [id number] FL guidance in OR Reviewed date:09/23/2024 08:42:28 AM Interpretation: Performing Lab: Notes/Report: [address] [address] Fluoroscopy Report Signed Patient: Spencer Price MR#: [id number] : 1945 Acct:[id number] Age/Sex: 79 / M ADM Date: 09/17/24 Loc: HO.S3 344-[address]: Vikram RUVALCABA Ordering Physician: George Baltazar MD, PhD Date of Service: 09/17/24 Procedure(s): FL guidance in OR Accession Number(s): [id number] cc: Trevon Colby MD; George Baltazar MD, [...] by: Gillian Onofre MD 09/18/2024 12:40 PM [facility] Dictated By: Gillian Onofre MD Signed By: <Electronically signed by Gillian Oonfre MD in OV> 09/18/24 1240 DD/ 0740 TD/TT: 09/17/24 1025 Monorail Operator: KAIDEN [address] [address] Fluoroscopy Report Signed Patient: Spencer Price MR#: [id number] : 1945 Acct:[id number] Age/Sex: 79 / M ADM Date: 09/17/24 Loc: HO.S3 344-[address]: Vikram RUVALCABA Ordering Physician: George Baltazar MD, PhD Date of Service: 09/17/24 Procedure(s): FL guidance in OR Accession Number(s): [id number] cc: Trevon Colby MD; George Baltazar MD, [...] by: Gillian Onofre MD 09/18/2024 12:40 PM [facility] Dictated By: Gillian Onofre MD Signed By: <Electronically signed by Gillian Onofre MD in OV> 09/18/24 1240 DD/ 0740 TD/TT: 09/17/24 1025 Monorail Operator: KAIDEN Complete Blood Count Auto Di ff Reviewed date:09/23/2024 08:42:28 AM Interpretation: Performing Lab:[facility], [address] [place] [phone] Notes/Report: White Blood Count 11.7 4.8-10.8 X10*3/uL [...] X10*3/uL NRBC Abs Auto 0.000 0.0-0.012 X10*3/uL US arterial duplex BI w/ NA Reviewed date:01/19/2025 08:16:21 PM Interpretation: Performing Lab: Notes/Report: [address] [address] Ultrasound Report Signed Patient: Spencer Price MR#: [id number] : 1945 Acct:[id number] Age/Sex: 79 / M ADM Date: 11/06/24 Loc: .US Attending Dr: Rusty Bear MD Ordering Physician: Rusty Bear MD Date of Service: 11/06/24 Procedure(s): US arterial duplex BI w/ NA Accession Number(s): [id number] cc: Trevon Colby MD; Rusty Bear MD EXAMINATION: US NONINVASIVE ASSESSMENT OF THE BILATERAL LOWER EXTREMITY WITH ARTERIAL DUPLEX AND ANKLE BRACHIAL INDICES (ABIS) CLINICAL INFORMATION: PVD COMPARISON: Lower extremity duplex 02/07/2024 TECHNIQUE: Duplex Doppler techniques with waveform analysis and measurement of velocities in the common femoral, profunda femoris, superficial femoral, popliteal and tibial arteries were performed. In addition, ankle pulse volume recordings, ankle pressure measurements and ankle brachial indices were obtained of the bilateral lower extremity arterial systems. The study was performed only at rest. FINDINGS: NONINVASIVE ASSESSMENT OF THE ARTERIES OF BILATERAL LOWER EXTREMITIES WITH ABIs: RIGHT LEG: Ankle-brachial index: 0.88 Ankle PVR: abnormal LEFT LEG: Ankle-brachial index: 0.59 Left ankle PVR: abnormal NA Reference: 0.9 - 1.4 = normal - no significant arterial disease 0.7 - 0.89 = mild peripheral arterial disease 0.51 - 0.69 = moderate peripheral arterial disease d 0.50 = severe peripheral arterial disease RIGHT LOWER EXTREMITY DUPLEX ULTRASOUND: Common femoral artery: 118 cm/s. Diastolic flow reversal: present Profunda femoris artery: 9.7 cm/s. Diastolic flow reversal: absent Superficial femoral artery (proximal): 128 cm/s. Diastolic flow reversal: present Stent from the proximal to mid SFA: [place] artery proximal to stent: 97 cm/s Proximal stent: 142 cm/s Mid stent: 119 cm/s Distal stent: 172 cm/s [place] artery distal to stent: 154 cm/s Superficial femoral artery (mid): 154 cm/s. Stent from mid to distal SFA: [place] artery proximal to stent: 145 cm/s Proximal stent: 136 cm/s Mid stent: 121 cm/s Distal stent: 146 cm/s [place] artery distal to stent: 94 cm/s Diastolic flow reversal: present Superficial femoral artery (distal): 145 cm/s. Diastolic flow reversal: present Popliteal artery: 218 cm/s Diastolic flow reversal: present Posterior tibial artery: 50 cm/s Diastolic flow reversal: present LEFT LOWER EXTREMITY DUPLEX ULTRASOUND: Common femoral artery: 159 cm/s. Diastolic flow reversal: present Profunda femoris artery: 173 cm/s. Diastolic flow reversal: present Superficial femoral artery (proximal): 43 cm/s. Diastolic flow reversal: absent Superficial femoral artery (mid): 114 cm/s. Diastolic flow reversal: absent Superficial femoral artery (distal): 85 cm/s. Diastolic flow reversal: absent Popliteal artery: 110 cm/s Diastolic flow reversal: absent Posterior tibial artery: 14 cm/s Diastolic flow reversal: absent US/US arterial duplex BI w/ NA IMPRESSION: 1. Right NA 0.88 consistent with mild peripheral arterial disease. 2. Left NA 0.59 consistent with moderate peripheral arterial disease. 3. Patent right SFA stents. 4. Elevated velocity in the right popliteal artery consistent with stenosis. Electronically signed by: Yair Guaman MD 11/24/2024 12:37 PM [facility] Dictated By: Yair Guaman MD Signed By: <Electronically signed by Yair Guaman MD in OV> 11/24/24 1237 DD/ 1315 TD/TT: 11/06/24 1400 Monorail Operator: [address] [address] Ultrasound Report Signed Patient: Spencer Price MR#: [id number] : 1945 Acct:[id number] Age/Sex: 79 / M ADM Date: 11/06/24 Loc: . Attending Dr: Rusty Bear MD Ordering Physician: Rusty Bear MD Date of Service: 11/06/24 Procedure(s): US arterial duplex BI w/ NA Accession Number(s): [id number] cc: Trevon Colby MD; Rusty Bear MD EXAMINATION: US NONINVASIVE ASSESSMENT OF THE BILATERAL LOWER EXTREMITY WITH ARTERIAL DUPLEX AND ANKLE BRACHIAL INDICES (ABIS) CLINICAL INFORMATION: PVD COMPARISON: Lower extremity dupl ex 02/07/2024 TECHNIQUE: Duplex Doppler techniques with waveform analysis and measurement of velocities in the common femoral, profunda femoris, superficial femoral, popliteal a nd tibial arteries were performed. In addition, ankle pulse volume recordings, ankle pressure measurements and ankle brachial indices wer e obtained of the bilateral lower extremity arterial systems. Th e study was performed only at rest. FINDINGS: NONINVASIVE ASSESSME NT OF THE ARTERIES OF BILATERAL LOWER EXTREMITIES WITH ABIs: RIGHT LEG: Ankle-brachial index : 0.88 Ankle PVR: abnormal LEFT LEG: Ankle-brachial index : 0.59 Left ankle PVR: abnormal NA Reference: 0.9 - 1.4 = normal - no significant arterial disease 0.7 - 0.89 = mild peripheral arterial disease 0.51 - 0.69 = modera te peripheral arterial disease d 0.50 = severe peripheral arterial disease RIGHT LOWER EXTREMIT Y DUPLEX ULTRASOUND: Common femoral arter y: 118 cm/s. Diastolic flow reversal: present Profunda femoris artery: 9.7 cm/s. Diastolic flow reversal: absent Superficial femoral artery (proximal): 128 cm/s. Diastolic flow reversal: present Stent from the proxi mal to mid SFA: [place] artery proxim al to stent: 97 cm/s Proximal stent: 142 cm/s Mid stent: 119 cm/s Distal stent: 172 cm/s [place] artery distal to stent: 154 cm/s Superficial femoral artery (mid): 154 cm/s. Stent from mid to distal SFA: [place] artery proxim al to stent: 145 cm/s Proximal stent: 136 cm/s Mid stent: 121 cm/s Distal stent: 146 cm/s [place] artery distal to stent: 94 cm/s Diastolic flow reversal: present Superficial femoral artery (distal): 145 cm/s. Diastolic flow reversal: present Popliteal artery: 21 8 cm/s Diastolic flow reversal: present Posterior tibial artery: 50 cm/s Diastolic flow reversal: present LEFT LOWER EXTREMITY DUPLEX ULTRASOUND: Common femoral arter y: 159 cm/s. Diastolic flow reversal: present Profunda femoris artery: 173 cm/s. Diastolic flow reversal: present Superficial femoral artery (proximal): 43 cm/s. Diastolic flow reversal: absent Superficial femoral artery (mid): 114 cm/s. Diastolic flow reversal: absent Superficial femoral artery (distal): 85 cm/s. Diastolic flow reversal: absent Popliteal artery: 11 0 cm/s Diastolic flow reversal: absent Posterior tibial artery: 14 cm/s Diastolic flow reversal: absent US/US arterial duplex BI w/ NA IMPRESSION: 1. Right NA 0.88 consistent with mild peripheral arterial disease. 2. Left NA 0.59 consistent with moderate peripheral arterial disease. 3. Patent right SFA stents. 4. Elevated velocity in the right popliteal artery consistent with stenosis. Electronically kendal d by: Yair Guaman MD 11/24/2024 12:37 PM [facility] Dictated By: Yair Guaman MD Signed By: <Electronically signed by Yair Guaman MD in OV> 11/24/24 1237 DD/ 1315 TD/TT: 11/06/24 1400 Monorail Operator: XR lumbar spine 4V min Reviewed date:01/19/2025 08:16:21 PM Interpretation: Performing Lab: Notes/Report: [facility] [address] [place] [address] Drive [address] [place] [address] XRay Report Signed Patient: Spencer Price MR#: [id number] : 1945 Acct:[id number] Age/Sex: 79 / M ADM Date: 11/17/24 Loc: HO.HOSX Attending Dr: Vikram RUVALCABA Ordering Physician: iVkram Grant Date of Service: 11/17/24 Procedure(s): XR lumbar spine 4V min Accession Number(s): [id number] cc: Trevon Colby MD; Vkiram Grant . EXAMINATION: X-ray lumbosacral spine. CLINICAL INFORMATION: Spondylolisthesis, lumbar region. COMPARISON: X-ray dated October 02, 2024. TECHNIQUE: Lateral views in neutral, flexion and extension position. AP view. FINDINGS: Metallic hardware placed with the transverse pedicle screws from L2 to L5, bilaterally. Status post intervertebral disc spacer placement at L2-3, L3-4 and L4-5 levels. Dextroconvex curvature of the lumbar spine. No gross malalignment during flexion and/or extension position. Metallic prosthesis, right hip no fully included. Vascular complications, thoracic and abdominal aorta and iliac arteries. XR/XR lumbar spine 4V min IMPRESSION: No acute fracture or instability. Electronically signed by: Akshat Jiang MD 11/19/2024 01:05 PM [facility] Dictated By: Akshat Hooper MD Signed By: <Electronically signed by Akshat Jordan MD in OV> 11/19/24 1305 DD/ 0855 TD/TT: 11/17/24 0900 Monorail Operator: [facility] [address] [place] [address] XRay Report Signed Patient: Spencer Price MR#: [id number] : 1945 Acct:[id number] Age/Sex: 79 / M ADM Date: 11/17/24 Loc: HO.HOSX Attending Dr: Vikram RUVALCABA Ordering Physician: Vikram Grant Date of Service: 11/17/24 Procedure(s): XR lum bar spine 4V min Accession Number(s): [id number] cc: Trevon Colby MD; Vikram Grant . EXAMINATION: X-ray lumbosacral spine. CLINICAL INFORMATION: Spondylolisthesis, lumbar region. COMPARISON: X-ray dated October 02, 2024. TECHNIQUE: Lateral views in neutral, flexion and extension position. AP view. FINDINGS: Metallic hardware placed with the transverse pedicle screws from L2 to L5, bilaterally. Sta tus post intervertebral disc spacer placement at L2-3, L3-4 and L4-5 levels. Dextroconvex curvatu re of the lumbar spine. No gross malalignmen t during flexion and/or extension position. Metallic prosthesis, right hip no fully included. Vascular complicatio ns, thoracic and abdominal aorta and iliac arteries. XR/XR lumbar spine 4V min IMPRESSION: No acute fracture or instability. Electronically kendal d by: Akshat Jiang MD 11/19/2024 01:05 PM EST Dictated By: Akshat Rivas MD Signed By: <Electronically signed by Akshat Jordan MD in OV> 11/19/24 1305 DD/ 0855 TD/TT: 11/17/24 0900 Monorail Operator: MR lumbar spine wo/w con Reviewed date:01/19/2025 08:16:21 PM Interpretation: Performing Lab: Notes/Report: [address] [address] Magnetic Resonance Report Signed Patient: Spencer Price MR#: [id number] : 1945 Acct:[id number] Age/Sex: 79 / M ADM Date: 11/19/24 Loc: HO.MRI Attending Dr: Vikram RUVALCABA Ordering Physician: Vikram Grant Date of Service: 11/19/24 Procedure(s): MR lumbar spine wo/w con Accession Number(s): [id number] cc: Trevon Colby MD; Vikram Grant EXAMINATION: MR LUMBAR SPINE WITHOUT AND WITH CONTRAST CLINICAL INFORMATION: Status post lumbar fusion, 2 months ago. Numbness, left foot. COMPARISON: MRI dated May 27, 2024. TECHNIQUE: MRI of the lumbar spine was obtained using routine sequences with and without contrast. Intravenous contrast: Gadavist 8 mL. No reported immediate complications FINDINGS: Submitted for interpretation on November 24, 2024. Last rib-bearing vertebra labeled T12. Paramagnetic field distortion secondary to metallic hardware, L2 L5 levels. Dextroconvex rotoscoliosis apex at L2-3. No abnormal enhancement within the neural elements of the thecal sac. No abnormal enhancement in the prevertebral compartment. No bone marrow STIR signal abnormality. Multilevel disc desiccation and marginal osteophyte formation, L1-S1. There is a 6 mm anterolisthesis at L5-S1. Grade 1 retrolisthesis, L1-2. Intervertebral discs spacers placement, L2-3, L3-4 and L4-5. Conus medullaris ends at inferior endplate of T12 with normal signal. There is no grouping or clumping of the neural elements of the thecal sac. There is no empty sac sign. T12-L1: No disc herniation. No neuroforamina stenosis. L1-2: Broad-based disc bulging. Hypertrophy of ligamentum flavum and the facet joints. Decreased diameter of the thecal sac and the neural foramina. L2-3: Postsurgical changes. Facet joint hypertrophy. Hypertrophy of the right ligamentum flavum. Decreased AP diameter of the thecal sac and the neural foramina. L3-4: Post surgical changes. Bilateral neuroforamina narrowing, left greater than the right side likely encroaching the neural elements. No gross central spinal canal stenosis. L4-5: Postsurgical changes. Decreased AP diameter of the thecal sac and the neural foramina likely encroaching the neural elements. L5-S1: Grade 1 anterolisthesis resulting in bilateral neuroforamina stenosis encroaching the exiting nerve roots. Reduced AP diameter of the thecal sac. No prevertebral compartment hematoma, mass or fluid collection. Asymmetric volume loss right psoas iliac muscle. Multifocal cystic lesions in the right kidney. Numerous diverticula, sigmoid colon. MR/MR lumbar spine wo/w con IMPRESSION: Multilevel lumbar spondylosis resulting in central spinal canal and bilateral neuroforamina stenosis at L4-5 and bilateral neuroforamina stenosis at L1-2, L2-3 and L3-4 levels encroaching the exiting nerve roots. Grade 1 anterolisthesis L5-S1, stable. Grade 1 retrolisthesis L1-2. No arachnoiditis by imaging. No abnormal enhancement.. Electronically signed by: Akshat Jiang MD 11/24/2024 09:53 AM EST Dictated By: Akshat Hooper MD Signed By: <Electronically signed by Akshat Jordan MD in OV> 11/24/24 0953 DD/ 1220 TD/TT: 11/19/24 1312 Monorail Operator: [address] [address] Magnetic Resonance Report Signed Patient: Spencer Price MR#: [id number] : 1945 Acct:[id number] Age/Sex: 79 / M ADM Date: 11/19/24 Loc: HO.MRI Attending Dr: Vikram RUVALCABA Ordering Physician: Vikram Grant Date of Service: 11/19/24 Procedure(s): MR lum bar spine wo/w con Accession Number(s): [id number] cc: Trevon Colby MD; Vikram Grant EXAMINATION: MR LUMBAR SPINE WITH OUT AND WITH CONTRAST CLINICAL INFORMATION: Status post lumbar fusion, 2 months ago. Numbness, left foot. COMPARISON: MRI dated May 27, 2024. TECHNIQUE: MRI of the lumbar sp ine was obtained using routine sequences with and without contrast. Intravenous contrast: Gadavist 8 mL. No reported immediate complications FINDINGS: Submitted for interpretation on November 24, 2024. Last rib-bearing vertebra labeled T12. Paramagnetic field distortion secondary to metallic hardware, L2 L5 levels. Dextroconvex rotoscoliosis apex at L2-3. No abnormal enhancem ent within the neural elements of the thecal sac. No abnormal enhancem ent in the prevertebral compartment. No bone marrow STIR signal abnormality. Multilevel disc desiccation and marginal osteophyte formation, L1-S1. There is a 6 mm anterolisthesis at L5-S1. Grade 1 retrolisthes is, L1-2. Intervertebral discs spacers placement, L2-3, L3-4 and L4-5. Conus medullaris end s at inferior endplate of T12 with normal signal. There is no grouping or clumping of the neural elements of the thecal sac. There is no emp ty sac sign. T12-L1: No disc herniation. No neuroforamina stenosis. L1-2: Broad-based disc bulging. Hypertrophy of ligamentum flavum and the facet joints. Decrea sed diameter of the thecal sac and the neural foramina. L2-3: Postsurgical changes . Facet joint hypertrophy. Hypertrophy of the right ligamentum flavum. Decreased AP diameter of the thecal sac and the neural foramina. L3-4: Post surgical change s. Bilateral neuroforamina narrowing, left greater than the right side likely encroaching the neural elements. No gross central spinal canal stenosis. L4-5: Postsurgical changes . Decreased AP diameter of the thecal sac and the neural foramina like ly encroaching the neural elements. L5-S1: Grade 1 anterolisthe sis resulting in bilateral neuroforamina stenosis encroaching the exit ing nerve roots. Reduced AP diameter of the thecal sac. No prevertebral compartment hematoma, mass or fluid collection. Asymmetric volume lo ss right psoas iliac muscle. Multifocal cystic lesions in the right kidney. Numerous diverticula , sigmoid colon. MR/MR lumbar spine wo/w con IMPRESSION: Multilevel lumbar spondylosis resulting in central spinal canal and bilateral neuroforam viridiana stenosis at L4-5 and bilateral neuroforamina stenosis at L1-2, L2 -3 and L3-4 levels encroaching the exiting nerve roots. Grade 1 anterolisthe sis L5-S1, stable. Grade 1 retrolisthes is L1-2. No arachnoiditis by imaging. No abnormal enhancement.. Electronically kendal d by: Akshat Jiang MD 11/24/2024 09:53 AM [facility] Dictated By: Akshat Rivas MD Signed By: <Electronically signed by Akshat Jordan MD in OV> 11/24/24 0953 DD/ 1220 TD/TT: 11/19/24 1312 Monorail Operator: Complete Blood Count Auto Di ff Reviewed date:02/04/2025 08:51:44 AM Interpretation: Performing Lab:[facility], [address] [place] [phone] Notes/Report: White Blood Count 5.0 4.8-10.8 X10*3/uL Red Blood Count 3.97 4.60-5.80 X10*6/uL Hemoglobin 12.6 14.0-18.0 g/dl Hematocrit 38.4 42.0-52.0 % Mean Corpuscular Volume 96.7 80.0-98.0 fL Mean Corpuscular Hemoglobin 31.7 27.0-33.0 pg Mean Corpuscular HGB Conc 32.8 31.0-36.0 g/dl Red Cell Distribution Width 13.3 11.0-16.0 % Platelet Count 267 160-400 X10*3/uL Mean Platelet Volume 9.4 9.4-12.4 fL Neutrophils Percent Auto 54.5 45-73 % Imm Gran Pct Auto 0.2 0.0-0.4 % Lymphocytes Percent Auto 28.3 20-40 % Monocytes Percent Auto 11.0 2-11 % Eosinophils Percent Auto 4.8 0-4 % Basophils Percent Auto 1.2 0-2 % NRBC Pct Auto 0.0 0.0-0.2 /100WBC Neutrophils Absolute Auto 2.7 2.0-8.3 x10*3/u L Imm Gran Abs Auto 0.01 0.00-0.03 X10*3/uL Lymphocytes Absolute Auto 1.4 1.2-4.9 X10*3/u L Monocytes Absolute Auto 0.6 0.1-1.2 X10*3/uL Eosinophils Absolute Auto 0.2 0.0-0.4 X10*3/u L Basophils Absolute Auto 0.1 0.0-0.2 X10*3/uL NRBC Abs Auto 0.000 0.0-0.012 X10*3/uL Comprehensive [place]. Panel Fa st Reviewed date:02/04/2025 08:51:44 AM Interpretation: Performing Lab:[facility], [address] [place] [phone] Notes/Report: Sodium 137 135-145 mmol/L Potassium 4.6 3.3-5.1 mmol/L Chloride 106 96-108 mmol/L Carbon Dioxide 26 22-29 mmol/L Anion Gap 10 12-20 Blood Urea Nitrogen 29 9-16 mg/dL Creatinine 1.28 0.5-1.4 mg/dL Estimated Glomerular Filt Rate 54 Chronic Kidney Disease: Estimated GFR < 60 mL/min/1.73m2 Severe Kidney Disease: Estimated GFR < 15 mL/min/1.73m2 Glucose Fasting 87 60-99 mg/dL Calcium 9.6 8.4-10.2 mg/dL Bilirubin Total 0.5 0.0-1.0 mg/dL Aspartate Amino Transferase 30 5-37 U/L Alanine Aminotransferase 16 0-40 U/L Total Protein 6.7 6.5-8.0 g/dL Albumin Level 3.7 3.5-5.0 g/dL Alkaline Phosphatase 107 39-117 U/L Lipid Panel Reviewed date:02/04/2025 08:51:45 AM Interpretation: Performing Lab:[facility], [address] [place] [phone] Notes/Report: Triglycerides 56 <150 mg/dL Desirable Triglyceride: less than 150 mg/dL Borderline High Triglyceride 150-199 mg/dL High Triglyceride: 200-499 mg/dL Very High Triglyceride: greater than or equal to 5OO mg/dL Cholesterol 122 <200 mg/dL Desirable Cholesterol: less than 200 mg/dL Borderline High Cholesterol: 200-239 mg/dL High Cholesterol: greater than 239 mg/dL LDL Cholesterol Calculated 57 <100 mg/dL Desirable LDL: less than 100 mg/dL Near Optimal/Above Optimal LDL: 110-129 mg/dL Borderline High LDL: 130-159 mg/dL High LDL: 160-189 mg/dL Very High LDL: greater than or equal to 190 mg/dL HDL Cholesterol 54 >40 mg/dL Desirable HDL: greater than 40 mg/dL Note: This HDL assay may give artificially low results in patients with liver disease. Prostate Specific Antigen Reviewed date:02/04/2025 08:51:45 AM Interpretation: Performing Lab:[address] [phone] Notes/Report: Prostate Specific Antigen 2.83 <0.05-4.0 ng/mL PSA methodology: [employer] Alinity i Chemiluminescent Microparticle Immunoassay (CMIA) Reason For Referral No Information Medications Medication SIG (Take, Route, Frequency, Duration) Notes Start Date End Date Status Naproxen 500 MG 1 tablet with food o r milk Orally every 12 hrs Active Metoprolol Succinate ER SUC 50MG 1 tablet Orally Once a day Active Ezetimibe 10 MG 1 tablet Orally Once a day 01/20/2025 Active Lisinopril-hydroCHLOROthiaz racheal 10-12.5 MG 1 tablet Orally twice a day Active Atorvastatin Calcium 80 MG 1 tablet Oral ly Once a day 01/20/2025 Active Aspirin Adult Low Dose 81 MG 1 tablet Orally Once a day Active Immunizations Vaccine Route Administration Date Status [...] Problem Status W/U Status Risk Notes Problem 7872824 Former smoker (Z87.891) Active confirmed He is highly motivated not to smoke and we discussed means of preserving abstinence in times of stress. Problem 32875254 Hyperlipidemia (E78.5) Active confirmed His total cholesterol level is 120. His lipids are in near target range. No change in his medications was made. His lipids were reviewed. He will have fasting lipid profile in the near future. Problem 652657239 Overweight (E66.3) Active confirmed His body mass index is 27. He has gained 3 pounds since his last visit. We reviewed his weight loss strategy and discussed this. Problem 125520458 Tubular adenoma (D36.9) Active confirmed He will continue to undergo colonoscopies every 5 years. Problem 36156736 Carpal tunnel syndrome, right upper limb (G56.01) Active confirmed He has seen the orthopedic surgeon and will undergo surgery for carpal tunnel syndrome on the right later this month. He is cleared for surgery at this time. Problem 82963887 Coronary artery disease (I25.10) Active confirmed He has had no recent palpitations, angina, syncope or nausea. He has been compliant with all of his medications. He saw his actuary clerk this month who found him to be stable and gave him an appointment to return in one year. Problem 048371387 BPH (benign prostatic hyperplasia) (N40.0) Active confirmed He arises from sleep once or twice a night to urinate. We have discussed lifestyle modifications he could make to reduce nocturia. Problem 964062660 Peripheral vascular disease (I73.9) Active confirmed He [...] and was thought to be stable. Problem 944513059 Degenerative joint disease (DJD) of lumbar spine (M47.816) Active confirmed A recent MRI shows spinal stenosis and foraminal impingement. He has an upcoming appointment with a neurosurgeon at the end of this month. Problem 442133563 Erectile dysfunction (N52.9) Active confirmed This is well compensated with medications. Problem 119058877 Osteoarthritis of right hip (M16.11) Active confirmed . He describes a hip pain as mild today. Problem 41196956 Spinal stenosis, lumbar (M48.06) Active confirmed The lumbar fusiontook place without side effects or incidents. He notices a substantial improvement in his back pain. The wound is well-healed. He reports much less pain with ambulation. 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 The discomfort has resolved. Problem Emphysema lung (J43.9) Active confirmed He is no longer smoking. He is short of breath with sustained exertion but is comfortable breathing room air at rest. Problem 856614375 History of bladder cancer (Z85.51) Active confirmed There was no sign of cancer on his exam today. He recently had a cystoscopy, March 2024 which showed no gross recurrence. Surveillance will continue Problem 406600075 Stage 2 chronic kidney disease (N18.2) Active confirmed His GFR has improved substantially since his last blood test. His urinary tract is currently asymptomatic. 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 This is likely entire operative. We have discusssed the healing of nerve tissue ttoday. Vital Signs Heart Rate 60 /min 02/11/2025 Temperature 97.3 degrees Fahrenheit 02/11/2025 Blood pressure diastolic 59 mm Hg 02/11/2025 Height 66 in 02/11/2025 Blood pressure systolic 139 mm Hg 02/11/2025 Weight 173 lbs 02/11/2025 BMI 27.92 kg/m2 02/11/2025 Encounters Encounter Location Date Provider Diagnosis Trevon Colby III, MD [address] [place] [address] [place] [phone] 05/01/2024 Trevon Colby Hyperlipidemia E78.5 ; Overweight E66.3 ; BPH (benign prostatic hyperplasia) N40.0 ; Former smoker Z87.891 ; History of bladder cancer Z85.51 ; Osteoarthritis of right hip M16.11 ; Peripheral vascular disease I73.9 ; Spinal stenosis, lumbar M48.06 ; Coronary artery disease I25.10 ; Emphysema lung J43.9 and Stage 2 chronic kidney disease N18.2 Trevon Colby III, MD [address] [place] [address] [place] [address] 08/01/2024 Trevon Colby Hyperlipidemia E78.5 ; Osteoarthritis of right hip M16.11 ; Overweight E66.3 ; Spinal stenosis, lumbar M48.06 ; Carpal tunnel syndrome, right upper limb G56.01 ; Peripheral vascular disease I73.9 ; History of bladder cancer Z85.51 and Stage 2 chronic kidney disease N18.2 Trevon Colby III, MD [address] [place] [address] [place] [address] 10/13/2024 Trevon Colby Hyperlipidemia E78.5 ; Spinal stenosis, lumbar M48.06 ; Overweight E66.3 ; BPH (benign prostatic hyperplasia) N40.0 ; Former smoker Z87.891 ; History of bladder cancer Z85.51 ; Peripheral vascular disease I73.9 ; Osteoarthritis of right hip M16.11 ; Coronary artery disease I25.10 ; Stage 2 chronic kidney disease N18.2 and Emphysema lung J43.9 Trevon Colby III, MD [address] [place] [address] [place] [phone] 02/11/2025 Trevon Colby Injury of left peron eal nerve, sequela S84.12XS ; Hyperlipidemia E78.5 ; Stage 2 chronic kidney disease N18.2 ; Osteoarthritis of right hip M16.11 ; Overweight E66.3 ; Spinal stenosis, lumbar M48.06 ; BPH (benign prostatic hyperplasia) N40.0 ; Former smoker Z87.891 and Peripheral vascular disease I73.9 Trevon Colby III, MD [address] [place] [address] [place] [address] 11/28/2024 Trevon Colby Hyperlipidemia E78.5 Trevon Colby III, MD [address] [place] [address] [place] [address] 12/12/2024 Trevon Colby Hyperlipidemia E78.5 Trevon Colby III, MD [address] [place] [address] [place] [address] 01/19/2025 Trevon Colby III, MD [address] [place] [address] [place] [address] 01/20/2025 Trevon Colby Assessments Encounter Date Diagnosis (ICD Code) Assessment [...] reports much less pain with ambulation. 02/11/2025 Injury of left peroneal nerve, sequela (ICD-10 - S84.12XS) the EMG Indicates an injury at L5-S1. This is likely entire operative. We have discusssed the healing of nerve tissue ttoday. 11/28/2024 Hyperlipidemia (ICD-10 - E78.5) His total cholesterol level is 120. His lipids are in near target range. No change in his medications was made. His lipids were reviewed. He will have fasting lipid profile in the near future. 12/12/2024 Hyperlipidemia (ICD-10 - E78.5) His total cholesterol level is 120. His lipids are in near target range. No change in his medications was made. His lipids were reviewed. He will have fasting lipid profile in the near future. 05/01/2024 BPH (benign prostati c hyperplasia) (ICD-10 [...] weight loss strategy and discussed this. 02/11/2025 Hyperlipidemia (ICD-10 - E78.5) His total [...] test. His urinary tract is currently asymptomatic. 05/01/2024 Former smoker (ICD-1 0 - Z87.891) [...] he could make to reduce nocturia. 02/11/2025 Osteoarthritis of right hip (ICD-10 - M16.11) . He describes a hip pain as mild today. 05/01/2024 History of bladder cancer (ICD-10 - [...] preserving abstinence in times of stress. 02/11/2025 Overweight (ICD-10 - E66.3) His body mass index is 27. He has gained 3 pounds since his last visit. We reviewed his weight loss strategy and discussed this. 05/01/2024 Osteoarthritis of right hip (ICD-10 - [...] showed no gross recurrence. Surveillance will continue 02/11/2025 Spinal stenosis, lumbar (ICD-10 - M48.06) The lumbar fusiontook place without side effects or incidents. He notices a substantial improvement in his back pain. The wound is well-healed. He reports much less pain with ambulation. 05/01/2024 Peripheral vascular disease (ICD-10 - I73.9) [...] 2024 and was thought to be stable. 02/11/2025 BPH (benign prostati c hyperplasia) (ICD-10 - N40.0) He arises from sleep once or twice a night to urinate. We have discussed lifestyle modifications he could make to reduce nocturia. 05/01/2024 Spinal stenosis, lumbar (ICD-10 - M48.06) [...] not wish to consider a surgical approach. 02/11/2025 Former smoker (ICD-1 0 - Z87.891) He is highly motivated not to smoke and we discussed means of preserving abstinence in times of stress. 05/01/2024 Coronary artery disease (ICD-10 - I25.10) He has had no recent palpitations, angina, syncope or nausea. He has been compliant with all of his medications. He saw his actuary clerk this month who found him to be stable and gave him an appointment to return in one year. 10/13/2024 Coronary artery disease (ICD-10 - I25.10) He has had no recent palpitations, angina, syncope or nausea. He has been compliant with all of his medications. He saw his actuary clerk this month who found him to be stable and gave him an appointment to return in one year. 02/11/2025 Peripheral vascular disease (ICD-10 - I73.9) [...] and was thought to be stable. 05/01/2024 Emphysema lung (ICD-10 - J43.9) He [...] Order Date PROFILE, FASTING (COMPREHENSIVE METABOLI C) 01/12/2020 PROFILE, FASTING (COMPREHENSIVE METABOLI C) 08/25/2020 PROFILE, FASTING (COMPREHENSIVE METABOLI C) 07/25/2021 PROFILE, FASTING (COMPREHENSIVE METABOLI C) 02/28/2024 PROFILE, FASTING (COMPREHENSIVE METABOLI C) 03/04/2018 PROFILE, FASTING (COMPREHENSIVE METABOLI C) 04/22/2019 PROFILE, FASTING (COMPREHENSIVE METABOLI C) 02/11/2025 PROFILE, FASTING (COMPREHENSIVE METABOLI C) 04/22/2021 PROFILE, FASTING (COMPREHENSIVE METABOLI C) 05/20/2020 PROFILE, FASTING (COMPREHENSIVE METABOLI C) 11/29/2023 PROFILE, FASTING (COMPREHENSIVE METABOLI C) 10/13/2024 PROFILE, FASTING (COMPREHENSIVE METABOLI C) 12/23/2018 PROFILE, FASTING (COMPREHENSIVE METABOLI C) 10/26/2021 PROFILE, FASTING (COMPREHENSIVE METABOLI C) 11/25/2020 PROFILE, FASTING (COMPREHENSIVE METABOLI C) 05/01/2024 PROFILE, FASTING (COMPREHENSIVE METABOLI C) 06/03/2018 PROFILE, RANDOM (COMPREHENSIVE METABOLIC ) 06/26/2023 LIPID PANEL 11/25/2020 LIPID PANEL 06/03/2018 LIPID PANEL 01/12/2020 LIPID PANEL 08/25/2020 LIPID PANEL 07/25/2021 LIPID PANEL 03/04/2018 LIPID PANEL 04/22/2019 LIPID PANEL 04/22/2021 LIPID PANEL 05/20/2020 LIPID PANEL 06/26/2023 LIPID PANEL 12/23/2018 LIPID PANEL 10/26/2021 PSA, TOTAL 06/26/2023 PSA, TOTAL 10/26/2021 PSA, TOTAL 05/01/2024 PSA, TOTAL 06/03/2018 PSA, TOTAL 02/28/2024 PSA, TOTAL 08/25/2020 PSA, TOTAL 03/04/2018 PSA, TOTAL 04/22/2019 PSA, TOTAL 04/22/2021 PSA, TOTAL 10/13/2024 CBC w DIFF 04/22/2021 CBC w DIFF 12/23/2018 CBC w DIFF 06/26/2023 CBC w DIFF 11/25/2020 CBC w DIFF 10/26/2021 CBC w DIFF 01/12/2020 CBC w DIFF 06/03/2018 CBC w DIFF 07/25/2021 CBC w DIFF 02/28/2024 CBC w DIFF 02/11/2025 CBC w DIFF 08/25/2020 CBC w DIFF 03/04/2018 CBC w DIFF 04/22/2019 CBC w DIFF 05/20/2020 Echocardiogram 01/31/2023 PFT with DLCO 02/01/2023 CBC WITH AUTO DIFF 10/13/2024 CBC WITH AUTO DIFF 05/01/2024 CBC WITH AUTO DIFF 11/29/2023 Lipid Panel 11/29/2023 Lipid Panel 10/13/2024 Lipid Panel 05/01/2024 Lipid Panel 02/28/2024 Lipid Panel 02/11/2025 ECG 12 lead EKG 08/23/2023 Next Appt Details Provider Name:Trevon Colby, 05/05/2025 09:30:00 AM, [address] [place] [address] , [place] [address], [place], [address], Insurance Providers Payer Name Payer Address Payer Phone Subscriber Number Group Number Insured Name Patient Relationship to Insured Coverage Start Date Coverage End Date [address] [place] [phone] [id number] Spencer Price Self - patient is the [...] 17 Surgical History Surgery Date(Month/Year) L3-L5 fusion [facility] 09/18/2024 Left femoral endarterectomy, right superficial Femoral artery atherectomy and angioplasty 06/2018 Right popliteal and peroneal artery athe rectomy and angioplasty 12/2017 Angioplasty right peroneal and popliteal artery 04/13/2021 Lumbar L3-5 Laminectomy, par tial facetectomy, foraminotomy, [facility], Dr Baltazar 10/25/[address] Bear 04/2021 [...]
--- OUTSIDE RECORDS SUMMARY | 2025-03-19 08:09 | XMS_ITS | Encounter Summary ---
Author Name [facility] [place] [facility] [facility] [place] Address [address] [place] [id number] Care Team Providers Care Cardiology Specialist Name Role Phone LAURIE SANCHEZ Primary Care [...] Policy Weiss's Name Patient's Relationship to Policy Wiess [facility] NICKO DAVEY (WNR) MEDIC[place] ADVANTAGE [place] PPO BLUE SAVER RX Nov 12, 2017 [id number] [phone] Eduar COMBS PATIENT AVINGER KERLINE-WN R [place] SPECIAL CLASS AVINGER ROGER DC March 27, 2018 STACY CHURCHILL [id number] [phone] Eduar COMBS PATIENT Selected Encounter This section includes the information on record at [place] for the Encounter. Date/Time Encounter Type Encounter Description Reason Provider Source March 24, 2024 08:30 AM OFFICE O/P EST MOD 30 MIN PRIMARY CARE/MEDICINE ICD-10-CM M54.17 Radiculopathy, lumbosacral region Zach SANCHZE Manjit Encounter Template Text not used by [place] Assessments - Encounter Diagnoses This section includes the primary and secondary diagnoses documented for the Encounter. Date/Time Primary/Secondary Diagnosis Diagnosis Name Provider Source March 24, 2024 09:15 AM PRIMARY Radiculopathy, lumbosacral region [facility] March 24, 2024 09:15 AM SECONDARY Athscl heart disease of ruby coronary artery w/o ang pctrs [facility]IE [facility] March 24, 2024 09:15 AM SECONDARY Essential (primary) hypertension [facility] March 24, 2024 09:15 AM SECONDARY Hyperlipidemia, unspecified [facility] Plan of Treatment: Future Appointments (+ 6 months) and Future Tests (+/- 45 days) The Plan of Treatment section includes future care activities for the patient from all [place] treatmentfacilities. This section includes future appointments and future orders which are active, pending or scheduled. Future Appointments This section includes appointments that were scheduled to occur 6 months from the date of the Encounter, up to a maximum of 20 appointments. The data comes from all [place] treatment facilities. Appointment Date/Time Appointment Type Appointme nt Facility Name May 01, 2024 08:00 AM AMBULATORY - MEDICINE [facility] May 12, 2024 07:00 AM AMBULATORY - MEDICINE [facility] Jun 26, 2024 09:30 AM [facility] Sep 02, 2024 09:45 AM [facility] Vital Signs: All taken on the encounter date This section contains inpatient and outpatient Vital Signs collected on the date of the Encounter. Date/Time Temperature Pulse Blood Pressure Respiratory Rate SP02 Pain Height Weight Body Mass Index Source March 24, 2024 08:37 AM 55 136/61 19 96 [facility] Social History: Smoking Status (Most [...] VA-TOBACCO NEVER USED [facility] [place] [facility] Tobacco Use History This section includes a history of the smoking, or tobacco-related health factors, that were collected on or before the date of the Encounter. The data comes from the [place] facility where the Encounter took place. Date/Time Smoking Status/Tobacco Use Comment F acility March 29, 2023 08:30 AM VA-TOBACCO FORMER USER [facility] [place] [facility] March 29, 2023 08:30 AM VA-TOBACCO QUIT 15 YRS OR MORE [facility] [place] [facility] Feb 10, 2022 08:30 AM VA-TOBACCO FORMER USER [facility] [place] [facility] Feb 10, 2022 08:30 AM VA-TOBACCO QUIT 15 YRS OR MORE [facility] [place] [facility] Jan 14, 2021 09:00 AM VA-TOBACCO FORMER USER [facility] [place] [facility] Jan 14, 2021 09:00 AM VA-TOBACCO QUIT 15 YRS OR MORE [facility] [place] [facility] Dec 23, 2018 09:29 AM VA-TOBACCO FORMER USER [facility] [place] [facility] Dec 23, 2018 09:29 AM VA-TOBACCO QUIT 15 YRS OR MORE [facility] [place] [facility] Dec 23, 2018 08:28 AM VA-TOBACCO FORMER USER [facility] [place] [facility] Dec 23, 2018 08:28 AM VA-TOBACCO QUIT 15 YRS OR MORE [facility] [place] [facility] Jun 22, 2017 09:22 AM LIFETIME NON-TOBACCO USER [facility] [place] [facility] Encounter Notes: All associated encounter notes This section contains the clinical notes associated to the Encounter. Date/Time Encounter Note(s) Provider Source March 24, 2024 08:42 AM PREVENTIVE MEDICINE NURSING NOTE: LOCAL TITLE: CLINICAL REMINDERS/NURSING STANDARD TITLE: PREVENTIVE MEDICINE NURSING NOTE DATE OF NOTE: MARCH 24, 2024@08:42 ENTRY DATE: MARCH 24, 2024@08:43:01 AUTHOR: BARB KEITH COSIGNER: URGENCY: STATUS: COMPLETED Suicide Screen: C-SSRS Screening [place] Suicide Severity Rating Scale (C-SSRS) screener 1. [...] Not worried about housing near future The reports the following: Within the past 12 [...] due to responses to other questions. 5. [place] numb or detached from people, activities, or your surroundings? Response not required due to responses to other questions. 6. [place] guilty or unable to stop blaming yourself [...] Staff Nurse Signed: 03/24/2024 08:47 BARB KEITH [facility] [place] [facility] March 24, 2024 08:37 AM PHYSICIAN NOTE: LOCAL TITLE: MD NOTE STANDARD TITLE: PHYSICIAN NOTE DATE OF NOTE: MARCH 24, 2024@08:37 ENTRY DATE: MARCH 24, 2024@08:37:22 AUTHOR: VASILIY SANCHEZ EXP COSIGNER: URGENCY: STATUS: COMPLETED HISTORY OF PRESENT ILLNESS: = IFTIKHAR KAYLA COMBS, is a 78 yo WHITE MALE who presents at the [facility]. many problems HPI. this [...] disease 5. CAD - Coronary Artery Disease ([facility] [id number]) 6. Degenerative disc disease 7. BPH - Benign prostatic hypertrophy 8. Under care of multiple providers 9. H/O cardiac surgery 10. History of - surgery 11. Screening status 12. Hyperlipidemia 13. 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 HISTORY: PERIOD OF SERVICE - [place] [facility] FROM Dec TO Dec COMBAT SERVICE INDICATED: [...] ASA and plavix 3. incr lisinopril/HCT to 20/12.5 daily/ home monitor BP 4. f/u in 3 mos for BP check w/ RN 5. refill statin and ezetimibe 6. obtain [facility] labs 7. f/u w/ PCP in [...] of active outpatient prescriptions dispensed from this [place] (local) and dispensed from another [place] or [facility] facility (remote) as well as inpatient [...] MD PHYSICIAN Signed: 03/24/2024 09:15 [facility]Y SANCHEZ [facility]
--- OUTSIDE RECORDS SUMMARY | 2025-03-19 08:09 | XMS_ITS ---
Author Organization Trevon Colby III, MD Address [address] [place] [address] [place] [address] Care Team Providers Care Bulk Sealer Operator Name Role Phone Trevon Colby Primary Care Provider [phone] REASON FOR VISIT Rx Request Social History Sex Assigned At : Social History Observation Description Sex Assigned At Male Encounters Encounter Location Date Provider Diagnosis Trevon Colby III, MD [address] [place] [address] [place] [address] 01/19/2025 Trevon Colby Plan Of Treatment Next Appt Details Provider Name:Trevon Colby, 05/05/2025 09:30:00 AM, [address] [place] [address] [place], [address], Progress Notes * Spencer PR[birth year]EDOB:[birth year] (79 yo M)Acc No.[id number]:01/19/2025 Patient:?Spencer PRICE :1945???Age:79 Y???Sex:Male Address:[address] [place], [address] * true * Date:? Generated for Littlei tony/Megag/eTransmitting on:?03/19/2025 08:08 AM EDT
--- OUTSIDE RECORDS SUMMARY | 2025-03-19 08:09 | XMS_ITS | Continuity of Care Document ---
Author Name [facility] Organization [facility] Care Team Providers Care Service Delivery Analyst Name Role Phone [facility] Unavailable Unavailable Problems Combined list of problems [...] - Coronary Artery Disease ([facility] [id number]) Active Condition Jun 17, 2022 Entered By: PAU MARY Comment: Following with Dr. 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, 2018 Entered By: MARI SCHMID Comment: BCG- teatment ( ) cystoscopy scheduled 12/26/18 and 01/17/19 [facility] [place] [facility] Degenerative disc disease Active Condition [facility] [place] [facility] H/O cardiac surgery Active Condition Jun 22, 2017 Entered By: MARI SCHMID Comment: stent 2015 [facility] [place] [facility] History of - surgery Active Condition Jun [...] Colonscopy - polyps ( 5 yrs )- [facility] 2018 Entered By: MARI SCHMID Comment: [...] wants MRI of lumbar spine [facility] [place] [facility] - Peripheral arterial disease Active Condition Dec 28 8 Entered By: MARI SCHMID Comment: 2nd aortogram- bil 12/19/17Au2021 Entered By: PAU MARY Comment: with caulidcation, though improved, following with Vascular-- Dr. Bear- has required multiple LE interventions, Vascular considering switchign plavix to xarelto 2.5mg bid [facility] [place] [facility] Screening status Active Condition Dec 28, 2017 Entered By: MARI SCHMID Comment: Colonoscopy 2018 ( no result ) - per pt repeat in 5 yrs.Dec 28, 2017 Entered By: MARI SCHMID Comment: aortogram bilateral lower legs - [facility] 12/19/17 - DR SYLWIA STROUD [facility] [place] [facility] Under care of multiple providers Active Condition Dec 28, 2017 Entered By: MARI SCHMID Comment: non va- Dr Trevon Colby ( in office and the [facility])Jun 28, 2017 Entered By: MARI SCHMID Comment: Urology- Dr Petit 2018 Entered By: MARI SCHMID Comment: [facility]- ( eye/ PODIATRY) [facility] Diagnosis: ICD-10-CM K03.6 Deposits [accretions] on teeth Active Diagnosis [facility] Diagnosis: ICD-10-CM I10 Essential (primary) hypertension Active Diagnosis [facility] Diagnosis: ICD-10-CM M54.17 Radiculopathy, lumbosacral region Active Diagnosis [facility] Medications Combined list of outpatient medications from Department of Defense and [facility] facilities.Medications provided include 1) outpatient medications from the last 15 months, and 2) patient-reported medications. Medication Details Route Status Patient Instructions Prescription Expires Prescription Number Last Dispense Date Ordering Provider Order Date Order Qty Source ASPIRIN 81MG TAB,EC TAKE ONE TABLET BY MOUTH ONCE DAILY TO PREVENT STROKE/H EART ATTACK ORAL 03/29/2024 [id number] ERON MANUEL 2022 120 [facility] ATORVASTATI N CA 80MG TAB TAKE ONE TABLET BY MOUTH ONCE DAILY FOR CHOLESTE ROL ORAL ACTIVE 03/25/2025 [id number] ERON MANUEL 2023 90 [facility] ATORVASTATI N CA 80MG TAB TAKE ONE TABLET BY MOUTH ONCE DAILY FOR CHOLESTE ROL ORAL DISCONT INUED (EDIT) 03/29/2024 [id number] ERON MANUEL 2022 90 [facility] CLOPIDOGREL BISULFATE 75MG TAB TAKE ONE TABLET BY MOUTH ONCE DAILY FOR MYOCARDI AL REINFARC TION PREVENTI ON ORAL ACTIVE 03/25/2025 [id number] ERON MANUEL 2023 90 [facility] CLOPIDOGREL BISULFATE 75MG TAB TAKE ONE TABLET BY MOUTH ONCE DAILY ORAL DISCONT INUED (EDIT) 03/29/2024 [id number] ERON MANUEL 2022 90 [facility] EZETIMIBE 10MG TAB TAKE ONE TABLET BY MOUTH ONCE DAILY TO LOWER CHOLESTE ROL ORAL ACTIVE 03/25/2025 [id number] ERON MANUEL 2023 90 [facility] EZETIMIBE 10MG TAB TAKE ONE TABLET BY MOUTH ONCE DAILY TO LOWER CHOLESTE ROL ORAL DISCONT INUED (EDIT) 03/29/2024 [id number] ERON MANUEL 2022 90 [facility] HYDROCHLORO THIAZIDE 12.5MG/NISHA NOPRIL 10MG TAB TAKE 1 TABLET BY MOUTH AT BEDTIME ORAL DISCONT INUED (EDIT) 03/29/2024 [id number] ERON MANUEL 2022 90 [facility] HYDROCHLORO THIAZIDE 12.5MG/NISHA NOPRIL 20MG TAB TAKE 1 TABLET BY MOUTH AT BEDTIME FOR HIGH BLOOD PRESSURE (NOTE DOSE) ORAL ACTIVE 03/25/2025 [id number] ERON MANUEL 2023 90 [facility] METOPROLOL SUCCINATE 50MG TAB,SA TAKE ONE TABLET BY MOUTH ONCE DAILY FOR BLOOD PRESSURE /HEART ORAL ACTIVE 03/25/2025 [id number] ERON MANUEL 2023 90 [facility] METOPROLOL SUCCINATE 50MG TAB,SA TAKE ONE TABLET BY MOUTH ONCE DAILY FOR BLOOD PRESSURE /HEART ORAL DISCONT INUED (EDIT) 03/24/2024 [id number] ERON MANUEL 2022 90 [facility] NAPROXEN 500MG TAB TAKE ONE TABLET BY MOUTH TWICE DAILY NEEDED FOR PAIN TAKE WITH FOOD ORAL 10/12/2024 [id number] [place] ERON LAURA 2023 90 [facility] [place] [facility] NAPROXEN 500MG TAB TAKE ONE TABLET BY MOUTH TWICE DAILY NEEDED TAKE WITH FOOD; FOR PAIN/INF LAMMATIO N/SWELLI NG ORAL 02/10/2024 [id number] 4 [place] ERON LAURA BINU Bradley 2022 180 [facility] SODIUM FLUORIDE 1.1% TOOTHPASTE BRUSH SMALL AMOUNT TO TEETH TWICE DAILY FOR TOOTH DECAY PREVENTI ON DENTAL ACTIVE 09/03/2025 [id number] 4 MIKAELA HEBERT 2023 51 [facility] [place] [facility] SODIUM FLUORIDE 1.1% TOOTHPASTE BRUSH SMALL AMOUNT TO TEETH TWICE DAILY DENTAL 06/01/2024 [id number] CRISSY MAHER 2022 204 [facility] [place] [facility] Allergies, Adverse Reactions, Alerts Combined list of allergies from Department of Defense and Veterans Affairs facilities. It does not include entries that were removed or entered in error. Substance Category Reaction Severity Reaction type Status Date Reported Comments Source PERCOCET Propensity to adverse reactions to drug (finding) Sweating active [facility] [place] [facility] Immunizations Combined list of available immunizations from the Department of Defense and Veterans Affairs facilities. Immunization Series Date Given Administered By Site Reaction Lot Number CVX Code Drug Dairy Tester Status Comments Source INFLUENZA, UNSPECIFIED FORMULATION 2022 88 complet ed HISTORICA L INFORMATI ON - SOURCE UNSPECIFI ED, [facility] INFLUENZA, UNSPECIFIED FORMULATION 2021 88 complet ed HISTORICA L INFORMATI ON - SOURCE UNSPECIFI ED, [facility] [place] COVID-19 (MODERNA), MRNA, LNP-S, PF, 100 MCG/0.5ML DOSE OR 50 MCG/0.25ML DOSE 3 [address] [facility] COVID-19 (MODERNA), MRNA, LNP-S, PF, 100 MCG/0.5 ML DOSE 2 2020 207 complet ed MOD; [id number]; 1 [facility] COVID-19 (MODERNA), MRNA, LNP-S, PF, 100 MCG/0.5 ML DOSE 1 2020 207 complet ed MOD; [id number]; 1 [facility] [...] SEASONAL, INJECTABLE [address] Colby office [facility] [place] PNEUMOCOCCAL CONJUGATE PCV 13 2016 133 complet ed [facility] ZOSTER (SHINGLES) (HISTORICAL) 2016 121 complet ed Proximal Left Arm [facility] FLU,3 YRS (HISTORICAL) [address] Sorensen office [facility] Results Combined [...] AM Reporting Lab: [facility] [place] [facility] [address] [facility] [address] Performing Lab: [facility] [place] [facility] [address] [facility] [address] [facility] [facility] MICROALBU MIN CREATININ E RATIO PANEL MICROALBUMI N [MASS/VOLUM E] IN URINE 0.7 mg/dL 09/02 Specimen Type: URINE No comment entered. Ordering Provider: LAURIE CHINCHILLA Report Released Date/Time: Aug 28, 2024 09:07 AM Reporting Lab: [facility] [place] [facility] [address] [facility] [address] Performing Lab: [facility] [place] [facility] [address] [facility] [address] [facility] [place] [facility] MICROALBU MIN CREATININ E RATIO PANEL CREATININE [MASS/VOLUM E] IN URINE 52.17 mg/dL 09/02 Specimen Type: URINE No comment entered. Ordering Provider: LAURIE CHINCHILLA Report Released Date/Time: Aug 28, 2024 09:07 AM Reporting Lab: [facility] [place] [facility] [address] [facility] [address] Performing Lab: [facility] [place] [facility] [address] [facility] [address] [facility] [place] [facility] BASIC METABOLIC PANEL (non-fast ing) UREA NITROGEN [MASS/VOLUM E] IN SERUM OR PLASMA 33 mg/dL 7 - 25 09/02 H Specimen Type: SERUM No comment entered. Ordering Provider: LAURIE CHINCHILLA Report Released Date/Time: Aug 28, 2024 09:07 AM Reporting Lab: [facility] [place] [facility] [address] [facility] [address] Performing Lab: [facility] [place] [facility] [address] [facility] [address] [facility] [place] [facility] BASIC METABOLIC PANEL (non-fast ing) GLUCOSE [MASS/VOLUM E] IN SERUM OR PLASMA 97 mg/dL 65 - 100 09/02 Specimen Type: SERUM No comment entered. Ordering Provider: LAURIE CHINCHILLA Report Released Date/Time: Aug 28, 2024 09:07 AM Reporting Lab: [facility] [address] [facility] [address] Performing Lab: [address] [address] [facility] BASIC METABOLIC PANEL (non-fast ing) SODIUM [MOLES/VOLU ME] IN SERUM OR PLASMA 136 mmol/L 135 - 145 09/02 Specimen Type: SERUM No comment entered. Ordering Provider: LAURIE CHINCHILLA Report Released Date/Time: Aug 28, 2024 09:07 AM Reporting Lab: [address] [address] Performing Lab: [address] [address] [facility] BASIC METABOLIC PANEL (non-fast ing) POTASSIUM [MOLES/VOLU ME] IN SERUM OR PLASMA 4.7 mmol/L 3.5 - 5.0 09/02 Specimen Type: SERUM No comment entered. Ordering Provider: LAURIE CHINCHILLA Report Released Date/Time: Aug 28, 2024 09:07 AM Reporting Lab: [address] [address] Performing Lab: [address] [address] [facility] BASIC METABOLIC PANEL (non-fast ing) CHLORIDE [MOLES/VOLU ME] IN SERUM OR PLASMA 106 mmol/L 100 - 110 09/02 Specimen Type: SERUM No comment entered. Ordering Provider: LAURIE CHINCHILLA Report Released Date/Time: Aug 28, 2024 09:07 AM Reporting Lab: [address] [address] Performing Lab: [facility] [address] [facility] [address] [facility] BASIC METABOLIC PANEL (non-fast ing) CARBON DIOXIDE, TOTAL [MOLES/VOLU ME] IN SERUM OR PLASMA 24 meq/L 20 - 30 09/02 Specimen Type: SERUM No comment entered. Ordering Provider: LAURIE CHINCHILLA Report Released Date/Time: Aug 28, 2024 09:07 AM Reporting Lab: [facility] [address] [facility] [address] Performing Lab: [address] [address] [facility] BASIC METABOLIC PANEL (non-fast ing) CREATININE [MASS/VOLUM E] IN SERUM OR PLASMA 1.40 mg/dL 0.50 - 1.40 09/02 Specimen Type: SERUM No comment entered. Ordering Provider: LAURIE CHINCHILLA Report Released Date/Time: Aug 28, 2024 09:07 AM Reporting Lab: [address] [address] Performing Lab: [address] [address] [facility] BASIC METABOLIC PANEL (non-fast ing) GLOMERULAR FILTRATION RATE/1.73 SQ M.PREDICTED [VOLUME RATE/AREA] IN SERUM, PLASMA OR BLOOD BY CREATININE- BASED FORMULA (CKD-EPI 2020) 50 mL/min 60 09/02 L Specimen Type: SERUM No comment entered. Ordering Provider: LAURIE CHINCHILLA Report Released Date/Time: Aug 28, 2024 09:07 AM Reporting Lab: [address] [address] Performing Lab: [address] [address] [facility] LIPID PANEL, NON FASTING CHOLESTEROL [MASS/VOLUM E] IN SERUM OR PLASMA 128 mg/dL 09/02 Specimen Type: SERUM No comment entered. Ordering Provider: LAURIE CHINCHILLA Report Released Date/Time: Aug 28, 2024 09:07 AM Reporting Lab: [facility] [place] [facility] [address] [facility] [address] Performing Lab: [facility] [place] [facility] [address] [facility] [address] [facility] [place] [facility] LIPID PANEL, NON FASTING TRIGLYCERID E [MASS/VOLUM E] IN SERUM OR PLASMA 69 mg/dL 0 - 150 09/02 Specimen Type: SERUM No comment entered. Ordering Provider: LAURIE CHINCHILLA Report Released Date/Time: Aug 28, 2024 09:07 AM Reporting Lab: [facility] [place] [facility] [address] [facility] [address] Performing Lab: [facility] [place] [facility] [address] [facility] [address] [facility] [place] [facility] LIPID PANEL, NON FASTING CHOLESTEROL IN LDL [MASS/VOLUM E] IN SERUM OR PLASMA BY CALCULATION 60 mg/dL 0 - 129 09/02 Specimen Type: SERUM No comment entered. Ordering Provider: LAURIE CHINCHILLA Report Released Date/Time: Aug 28, 2024 09:07 AM Reporting Lab: [facility] [place] [facility] [address] [facility] [address] Performing Lab: [facility] [place] [facility] [address] [facility] [address] [facility] [place] [facility] LIPID PANEL, NON FASTING CHOLESTEROL .TOTAL/CHOL ESTEROL IN HDL [MASS RATIO] IN SERUM OR PLASMA 2.4 09/02 Specimen Type: SERUM No comment entered. Ordering Provider: LAURIE CHINCHILLA Report Released Date/Time: Aug 28, 2024 09:07 AM Reporting Lab: [facility] [place] [facility] [address] [facility] [address] Performing Lab: [facility] [place] [facility] [address] [facility] [address] [facility] LIPID PANEL, NON FASTING CHOLESTEROL IN HDL [MASS/VOLUM E] IN SERUM OR PLASMA 54 mg/dL 40 - 60 09/02 Specimen Type: SERUM No comment entered. Ordering Provider: LAURIE CHINCHILLA Report Released Date/Time: Aug 28, 2024 09:07 AM Reporting Lab: [facility] [address] [facility] [address] Performing Lab: [facility] [address] [facility] [address] [facility] TSH THYROTROPIN [UNITS/VOLU ME] IN SERUM OR PLASMA 1.43 u[IU]/ mL 0.35 - 5.00 09/02 Specimen Type: SERUM No comment entered. Ordering Provider: LAURIE CHINCHILLA Report Released Date/Time: Aug 28, 2024 09:07 AM Reporting Lab: [facility] [address] [facility] [address] Performing Lab: [address] [address] [facility] HEMOGLOBI N A1C PANEL HEMOGLOBIN A1C/HEMOGLO [...] Aug 28, 2024 09:07 AM Reporting Lab: [facility] [address] [facility] [address] Performing Lab: [address] [address] [facility] CBC AND DIFF (AUTO) LEUKOCYTES [#/VOLUME] IN BLOOD BY AUTOMATED COUNT 8.50 10*3/u L 4.50 - 11.00 09/02 Specimen Type: BLOOD No comment entered. Ordering Provider: LAURIE CHINCHILLA Report Released Date/Time: Aug 28, 2024 09:07 AM Reporting Lab: [facility] [place] [facility] [address] [facility] [address] Performing Lab: [facility] [place] [facility] [address] [facility] [address] [facility] [place] [facility] CBC AND DIFF (AUTO) ERYTHROCYTE S [#/VOLUME] IN BLOOD BY AUTOMATED COUNT 3.92 10*6/u L 4.23 - 5.66 09/02 L Specimen Type: BLOOD No comment entered. Ordering Provider: LAURIE CHINCHILLA Report Released Date/Time: Aug 28, 2024 09:07 AM Reporting Lab: [facility] [place] [address] [address] Performing Lab: [facility] [place] [address] [address] [facility] [place] [facility] CBC AND DIFF (AUTO) HEMOGLOBIN [MASS/VOLUM E] IN BLOOD 12.9 g/dL 12.8 - 17 09/02 Specimen Type: BLOOD No comment entered. Ordering Provider: LAURIE CHINCHILLA Report Released Date/Time: Aug 28, 2024 09:07 AM Reporting Lab: [facility] [place] [address] [address] Performing Lab: [facility] [place] [address] [address] [facility] [place] [facility] CBC AND DIFF (AUTO) HEMATOCRIT [VOLUME FRACTION] OF BLOOD BY AUTOMATED COUNT 38.0 39.2 - 50.4 09/02 L Specimen Type: BLOOD No comment entered. Ordering Provider: LAURIE CHINCHILLA Report Released Date/Time: Aug 28, 2024 09:07 AM Reporting Lab: [facility] [place] [address] [address] Performing Lab: [facility] [place] [facility] [address] [facility] [address] [facility] [place] [facility] CBC AND DIFF (AUTO) MCV [ENTITIC VOLUME] BY AUTOMATED COUNT 96.9 fL 82 - 99 09/02 Specimen Type: BLOOD No comment entered. Ordering Provider: LAURIE CHINCHILLA Report Released Date/Time: Aug 28, 2024 09:07 AM Reporting Lab: [facility] [place] [facility] [address] [facility] [address] Performing Lab: [facility] [place] [facility] [address] [facility] [address] [facility] [place] [facility] CBC AND DIFF (AUTO) MCHC [MASS/VOLUM E] BY AUTOMATED COUNT 33.9 g/dL 30.8 - 35.1 09/02 Specimen Type: BLOOD No comment entered. Ordering Provider: LAURIE CHINCHILLA Report Released Date/Time: Aug 28, 2024 09:07 AM Reporting Lab: [facility] [place] [facility] [address] [facility] [address] Performing Lab: [facility] [place] [facility] [address] [facility] [address] [facility] [place] [facility] CBC AND DIFF (AUTO) PLATELETS [#/VOLUME] IN BLOOD BY AUTOMATED COUNT 259 10*3/u L 140 - 360 09/02 Specimen Type: BLOOD No comment entered. Ordering Provider: LAURIE CHINCHILLA Report Released Date/Time: Aug 28, 2024 09:07 AM Reporting Lab: [facility] [place] [facility] [address] [facility] [address] Performing Lab: [facility] [place] [facility] [address] [facility] [address] [facility] [place] [facility] CBC AND DIFF (AUTO) ERYTHROCYTE DISTRIBUTIO N WIDTH [RATIO] BY AUTOMATED COUNT 12.2 12.0 - 16.0 09/02 Specimen Type: BLOOD No comment entered. Ordering Provider: LAURIE CHINCHILLA Report Released Date/Time: Aug 28, 2024 09:07 AM Reporting Lab: [facility] [place] [facility] [address] [facility] [address] Performing Lab: [facility] [place] [facility] [address] [facility] [address] [facility] [place] [facility] CBC AND DIFF (AUTO) MONOCYTES [#/VOLUME] IN BLOOD BY AUTOMATED COUNT 0.76 10*3/u L 0.30 - 1.10 09/02 Specimen Type: BLOOD No comment entered. Ordering Provider: LAURIE CHINCHILLA Report Released Date/Time: Aug 28, 2024 09:07 AM Reporting Lab: [facility] [place] [facility] [address] [facility] [address] Performing Lab: [facility] [place] [facility] [address] [facility] [address] [facility] [place] [facility] CBC AND DIFF (AUTO) MCH [ENTITIC MASS] BY AUTOMATED COUNT 32.9 pg 26.2 - 32.6 09/02 H Specimen Type: BLOOD No comment entered. Ordering Provider: LAURIE CHINCHILLA Report Released Date/Time: Aug 28, 2024 09:07 AM Reporting Lab: [facility] [place] [facility] [address] [facility] [address] Performing Lab: [facility] [place] [facility] [address] [facility] [address] [facility] [place] CBC AND DIFF (AUTO) NEUTROPHILS /100 LEUKOCYTES IN BLOOD BY AUTOMATED COUNT 72.2 43.7 - 75.8 09/02 Specimen Type: BLOOD No comment entered. Ordering Provider: LAURIE CHINCHILLA Report Released Date/Time: Aug 28, 2024 09:07 AM Reporting Lab: [facility] [place] [facility] [address] [facility] [address] Performing Lab: [facility] [place] [facility] [address] [facility] [address] [facility] [place] CBC AND DIFF (AUTO) LYMPHOCYTES /100 LEUKOCYTES IN BLOOD BY AUTOMATED COUNT 14.6 14.0 - 42.3 09/02 Specimen Type: BLOOD No comment entered. Ordering Provider: LAURIE CHINCHILLA Report Released Date/Time: Aug 28, 2024 09:07 AM Reporting Lab: [facility] [place] [facility] [address] [facility] [address] Performing Lab: [facility] [place] [address] [address] [facility] CBC AND DIFF (AUTO) MONOCYTES/1 00 LEUKOCYTES IN BLOOD BY AUTOMATED COUNT 8.9 5.1 - 13.7 09/02 Specimen Type: BLOOD No comment entered. Ordering Provider: LAURIE CHINCHILLA Report Released Date/Time: Aug 28, 2024 09:07 AM Reporting Lab: [facility] [place] [address] [address] Performing Lab: [facility] [place] [address] [address] [facility] [place] [facility] CBC AND DIFF (AUTO) EOSINOPHILS /100 LEUKOCYTES IN BLOOD BY AUTOMATED COUNT 3.5 0.4 - 6.8 09/02 Specimen Type: BLOOD No comment entered. Ordering Provider: LAURIE CHINCHILLA Report Released Date/Time: Aug 28, 2024 09:07 AM Reporting Lab: [facility] [place] [address] [address] Performing Lab: [facility] [place] [address] [address] [facility] [place] [facility] CBC AND DIFF (AUTO) BASOPHILS/1 00 LEUKOCYTES IN BLOOD BY AUTOMATED COUNT 0.6 0.1 - 2.0 09/02 Specimen Type: BLOOD No comment entered. Ordering Provider: LAURIE CHINCHILLA Report Released Date/Time: Aug 28, 2024 09:07 AM Reporting Lab: [facility] [place] [address] [address] Performing Lab: [facility] [place] [facility] [address] [facility] [address] [facility] CBC AND DIFF (AUTO) NEUTROPHILS [#/VOLUME] IN BLOOD BY AUTOMATED COUNT 6.13 10*3/u L 2.20 - 7.60 09/02 Specimen Type: BLOOD No comment entered. Ordering Provider: LAURIE CHINCHILLA Report Released Date/Time: Aug 28, 2024 09:07 AM Reporting Lab: [facility] [place] [facility] [address] [facility] [address] Performing Lab: [facility] [address] [facility] [address] [facility] CBC AND DIFF (AUTO) LYMPHOCYTES [#/VOLUME] IN BLOOD BY AUTOMATED COUNT 1.24 10*3/u L 1.00 - 3.20 09/02 Specimen Type: BLOOD No comment entered. Ordering Provider: LAURIE CHINCHILLA Report Released Date/Time: Aug 28, 2024 09:07 AM Reporting Lab: [facility] [place] [address] [address] Performing Lab: [facility] [address] [address] [facility] CBC AND DIFF (AUTO) EOSINOPHILS [#/VOLUME] IN BLOOD BY AUTOMATED COUNT 0.30 10*3/u L 0.03 - 0.44 09/02 Specimen Type: BLOOD No comment entered. Ordering Provider: LAURIE CHINCHILLA Report Released Date/Time: Aug 28, 2024 09:07 AM Reporting Lab: [facility] [facility] [address] [facility] [address] Performing Lab: [place] [facility] [address] [address] [facility] CBC AND DIFF (AUTO) BASOPHILS [#/VOLUME] IN BLOOD BY AUTOMATED COUNT 0.05 10*3/u L 0.01 - 0.13 09/02 Specimen Type: BLOOD No comment entered. Ordering Provider: LAURIE CHINCHILLA Report Released Date/Time: Aug 28, 2024 09:07 AM Reporting Lab: [facility] [place] [facility] [address] [facility] [address] Performing Lab: [facility] [place] [facility] [address] [facility] [address] [facility] [place] [facility] CBC AND DIFF (AUTO) IMMATURE GRANULOCYTE S/100 LEUKOCYTES IN BLOOD BY AUTOMATED COUNT 0.2 0.0 - 0.7 09/02 Specimen Type: BLOOD No comment entered. Ordering Provider: LAURIE CHINCHILLA Report Released Date/Time: Aug 28, 2024 09:07 AM Reporting Lab: [facility] [place] [facility] [address] [facility] [address] Performing Lab: [place] [facility] [place] [address] [address] [place] [facility] [place] [facility] CBC AND DIFF (AUTO) IMMATURE GRANULOCYTE S [#/VOLUME] IN BLOOD 0.02 10*3/u L 0.00 - 0.06 09/02 Specimen Type: BLOOD No comment entered. Ordering Provider: LAURIE CHINCHILLA Report Released Date/Time: Aug 28, 2024 09:07 AM Reporting Lab: [facility] [place] [facility] [address] [facility] [address] Performing Lab: [facility] [place] [address] [address] [facility] [place] [facility] CBC AND DIFF (AUTO) NRBC % 0.0 0.0 - 0.0 09/02 Specimen Type: BLOOD No comment entered. Ordering Provider: LAURIE CHINCHILLA Report Released Date/Time: Aug 28, 2024 09:07 AM Reporting Lab: [facility] [place] [facility] [address] [facility] [address] Performing Lab: [facility] [place] [address] [address] [facility] [place] [facility] CBC AND DIFF (AUTO) NRBC, ABS 0.00 10*3/u L 0.00 - 0.00 09/02 Specimen Type: BLOOD No comment entered. Ordering Provider: LAURIE CHINCHILLA Report Released Date/Time: Aug 28, 2024 09:07 AM Reporting Lab: [facility] [place] [facility] [address] [facility] [address] Performing Lab: [facility] [place] [facility] [address] [facility] [address] [facility] CALCIUM CALCIUM [MASS/VOLUM E] IN SERUM OR PLASMA 10.0 mg/dL 8.5 - 10.2 09/02 Specimen Type: SERUM No comment entered. Ordering Provider: LAURIE CHINCHILLA Report Released Date/Time: Aug 28, 2024 09:07 AM Reporting Lab: [facility] [place] [facility] [address] [facility] [address] Performing Lab: [facility] [place] [facility] [address] [facility] [address] [place] [facility] [place] [facility] Vital Signs Combined list of inpatient and [...] from Department of Veterans Affairs facilities going backup to the last 18 months, not all VA inpatient encounters are included; 2) Encounters from the Department of [facility] facilities going backup to 280 months. Location Location Details Encounter Type Encounter Number Reason For Visit Attending Provider ADM Date DC Date Status Disposition Source [facility] En[facility] [id number] 11/28 [facility] En[facility] [id number] 01/31 [facility] En[facility] [id number] 02/06 [facility] En[facility] [id number] 02/21 [facility] CLEAN/INSP ECT JOSE PART DENT [id number] Diagnos is: ICD-10- CM K03.6 Deposit s [accret ions] on teeth BELYSHEV,N ADEZHDA 02/24 [facility] En[facility] [id number] 03/05 [facility] OFFICE O/P EST MOD 30 MIN [id number] Diagnos is: ICD-10- CM M54.17 Radicul opathy, lumbosa cral LAURIE Hodgson 03/24 [facility] En[facility] [id number] 05/01 [facility] OFF/OP EST MAY X REQ PHY/QHP [id number] 1. Diagnos is: ICD-10- CM I10 Essenti al (primar y) hyperte nsion PICH,FLORESITA H 06/26 [facility] En[facility] [id number] 1.07/09 [facility] [id number] 1.08/27 [facility] Encounter [id number] 1.09/01 [facility] Encounter [id number] 1.09/01 [facility] CLEAN/INSP ECT JOSE PART DENT [id number] 1. Diagnos is: ICD-10- CM K03.6 Deposit s [accret ions] on teeth BELYSHEV,N ADEZHDA 09/02 [facility] En[facility] [id number] 09/02 [facility] Encounter [id number] 1.10/03 [facility] Social History Combined list of available smoking, tobacco, and other social history from Department of Defense and Veterans Affairs facilities. Social History Type Response Date Comment Sourc e Tobacco smoking status MTIS VA-TOBACCO NEVER USED 03/24/2024 [facility] [place] [facility] History of tobacco use VA-TOBACCO FORMER USER 03/29/2023 [facility] [place] [facility] History of tobacco use SD-TOBACCO FORMER USER 02/10/2022 [facility] [place] [facility] History of tobacco use SD-TOBACCO FORMER USER 01/14/2021 [facility] [place] [facility] History of tobacco use SD-TOBACCO FORMER USER 12/23/2018 [facility] [place] [facility] History of tobacco use SD-TOBACCO FORMER USER 12/23/2018 [facility] [place] [facility] History of tobacco use LIFETIME NON-TOBACCO USER 06/22/2017 [facility] [place] [facility]
--- OUTSIDE RECORDS SUMMARY | 2025-03-19 08:10 | XMS_ITS ---
Author Name [facility] [place] [facility] [place] Address [address] [place] [address] Care Team Providers Care Financial Recruiter Name Role Phone LAURIE SANCHEZ Primary Care [...] Weiss's Name Patient's Relationship to Policy Weiss [facility] NICKO DAVEY (WNR) MEDICARE ADVANTAGE [place] PPO BLUE SAVER RX Nov 12, 2017 [id number] Eduar COMBS PATIENT CAMP KERLINE-WN R [place] SPECIAL CLASS CAMP [place] March 27, 2018 STACY CHURCHILL [id number] Eduar COMBS PATIENT Selected Encounter This section includes the information on record at [place] for the Encounter. Date/Time Encounter Type Encounter Description Reason Provider Source Jun 26, 2024 09:30 AM OFF/OP EST MARCH X REQ PHY/QHP PRIMARY CARE/MEDICINE ICD-10-CM I10 Essential (primary) hypertension BARB KEITH Encounter Template Text not used by [place] Assessments - Encounter Diagnoses This section includes the primary and secondary diagnoses documented for the Encounter. Date/Time Primary/Secondary Diagnosis Diagnosis Name Provider Source Jun 26, 2024 09:57 AM PRIMARY Essential (primary) hypertension [facility] Plan of Treatment: Future Appointments (+ 6 months) and Future Tests (+/- 45 days) The Plan of Treatment section includes future care activities for the patient from all [place] treatmentfacilities. This section includes future appointments and future orders which are active, pending or scheduled. Future Appointments This section includes appointments that were scheduled to occur 6 months from the date of the Encounter, up to a maximum of 20 appointments. The data comes from all [place] treatment facilities. Appointment Date/Time Appointment Type Appointme nt Facility Name Sep 02, 2024 09:45 AM AMBULATORY - NONE [facility] Vital Signs: All taken on the encounter date This section contains inpatient and outpatient Vital Signs collected on the date of the Encounter. Date/Time Temperature Pulse Blood Pressure Respiratory Rate SP02 Pain Height Weight Body Mass Index Source Jun 26, 2024 09:50 AM 128/70 [facility] Jun 26, 2024 09:40 AM 62 130/74 [facility] Social History: Smoking Status (Most current) and Tobacco Use (All prior to encounter date) This section includes the most current, and the historical, smoking and tobacco- related health factors from the [place] facility where the Encounter took place. Current Smoking Status This section includes the most current smoking, or tobacco-related health factor, from the [place] facility where the Encounter took place. Date/Time Current Smoking Status Comment Sarwat ity March 24, 2024 08:30 AM VA-TOBACCO NEVER USED [facility] Tobacco Use History This section includes a history of the smoking, or tobacco-related health factors, that were collected on or before the date of the Encounter. The data comes from the [place] facility where the Encounter took place. Date/Time Smoking Status/Tobacco Use Comment F acility March 29, 2023 08:30 AM VA-TOBACCO FORMER USER [place] [facility] [place] [facility] March 29, 2023 08:30 AM VA-TOBACCO QUIT 15 YRS OR MORE [facility] Feb 10, 2022 08:30 AM VA-TOBACCO FORMER USER [facility] [place] [facility] Feb 10, 2022 08:30 AM VA-TOBACCO QUIT 15 YRS OR MORE [facility] [place] [facility] Jan 14, 2021 09:00 AM VA-TOBACCO FORMER USER [facility] [place] [facility] Jan 14, 2021 09:00 AM VA-TOBACCO QUIT 15 YRS OR MORE [place] [facility] [place] [facility] Dec 23, 2018 09:29 AM VA-TOBACCO FORMER USER [facility] [place] [facility] Dec 23, 2018 09:29 AM VA-TOBACCO QUIT 15 YRS OR MORE [place] [facility] [place] [facility] Dec 23, 2018 08:28 AM VA-TOBACCO FORMER USER [facility] [place] [facility] Dec 23, 2018 08:28 AM VA-TOBACCO QUIT 15 YRS OR MORE [place] [facility] [place] [facility] Jun 22, 2017 09:22 AM LIFETIME NON-TOBACCO USER [place] [facility] [place] [facility] Encounter Notes: All associated encounter notes This section contains the clinical notes associated to the Encounter. Date/Time Encounter Note(s) Provider Source Jun 26, 2024 09:50 AM PRIMARY CARE OUTPA TIENT NOTE: LOCAL TITLE: AMBULATORY/OUTPATIENT CARE NOTE STANDARD TITLE: PRIMARY CARE OUTPATIENT NOTE DATE OF NOTE: JUN 26, 2024@09:50 ENTRY DATE: JUN 26, 2024@09:50:50 AUTHOR: BARB KEITH COSIGNER: URGENCY: STATUS: COMPLETED F: Nursing Clinic/Blood pressure check D: Custer presents to the Primary care clinic for [...] drink coffee and has an occaisonal beer. Custer reports no side effects from current medication. [...] SANCHEZ MD PHYSICIAN BARB KEITH [facility]
--- OUTSIDE RECORDS SUMMARY | 2025-03-19 08:10 | XMS_ITS ---
Author Name [facility] [place] [facility] [place] Address [address] [place] [address] Care Team Providers Care Auto Body Worker Name Role Phone LAURIE SANCHEZ Primary Care [...] Weiss's Name Patient's Relationship to Policy Weiss [facility] ([facility]NR) MEDICARE ADVANTAGE [place] PPO BLUE SAVER RX Nov 12, 2017 [id number] Eduar COMBS PATIENT CARY KERLINE-WN R [place] SPECIAL CLASS CAMP [place] March 27, 2018 STACY CHURCHILL [id number] [id number] Eduar COMBS PATIENT Selected Encounter This section includes the information on record at [place] for the Encounter. Date/Time Encounter Type Encounter Description Reason Pro vider Source Aug 27, 2024 05:30 PM Outpatient Encounter ADMIN PAT ACTIVTIES (GUNNARNONCT) IHE Encounter Template Text not used by CT Plan of Treatment: Future Appointments (+ 6 [...] 20 appointments. The data comes from all [place] treatment facilities. Appointment Date/Time Appointment Type Appointme nt Facility Name Sep 02, 2024 09:45 AM AMBULATORY - NONE [facility] Lab Results: +/- 30 days of the encounter This section includes the Chemistry and Hematology Lab Results on record with CT for the patient. Radiology Reports and Pathology Reports are provided separately, in subsequent sections. Lab Results This section contains the Chemistry/Hematology Results that were resulted 30 days before or 30 daysafter the date of the Encounter. Date/Time Source Result Type Result - Unit Interpretation Reference Range Specimen Type Comment Sep 02, 2024 10:25 AM [facility] MICROALBUMIN CREATININE RATIO PANEL URINE Spe cimen Type: URINE No comment entered. Ordering Provider: JONATHAN SANCHEZ Report Released Date/Time: Aug 28, 2024 09:07 AM Reporting Lab: [facility] [address] [facility] [address] Performing Lab: [facility] [address] [facility] [address] MICROALBUMIN/CREATININE RATIO 13.4 mg/g 0-29.9 MICROALBUMIN,QUANTITATIVE 0.7 mg/dL RR U NAVAIL CREATININE URINE 52.17 mg/dL Sep 02, 2024 10:25 AM [facility] BASIC METABOLIC PANEL (non-fasting) SERUM Spe cimen Type: SERUM No comment entered. Ordering Provider: LAURIE SANCHEZ Report Released Date/Time: Aug 28, 2024 09:07 AM Reporting Lab: [facility] [address] [facility] [address] Performing Lab: [address] [address] UREA NITROGEN 33 mg/dL H 7-25 GLUCOSE 97 mg/dL 65-100 SODIUM 136 mmol/L 135-145 POTASSIUM 4.7 mmol/L 3.5-5.0 CHLORIDE 106 mmol/L 100-110 CO2 24 meq/L 20-30 CREATININE, Serum 1.40 mg/dL 0.50-1.40 eGFR(CKD-EPI 2020) 50 mL/min L >60 Sep 02, 2024 10:[address] [facility] LIPID PANEL, NON FASTING SERUM Specimen Type: SERUM No comment entered. Ordering Provider: LAURIE SANCHEZ Report Released Date/Time: Aug 28, 2024 09:07 AM Reporting Lab: [facility] [address] [facility] [address] Performing Lab: [facility] [address] [facility] [address] CHOLESTEROL 128 mg/dL TRIGLYCERIDE 69 mg/dL 0-150 LDL calculated 60 mg/dL 0-129 CHOL/HDL 2.4 HDL CHOLESTEROL 54 mg/dL 40-60 Sep 02, 2024 10:25 AM [facility] TSH SERUM Specimen Type: SERUM No comment entered. Ordering Provider: LAURIE SANCHEZ Report Released Date/Time: Aug 28, 2024 09:07 AM Reporting Lab: [facility] [address] [facility] [address] Performing Lab: [facility] [address] [facility] [address] TSH 1.43 u[IU]/mL 0.35-5.00 Sep 02, 2024 10:25 AM [facility] HEMOGLOBIN A1C PANEL BLOOD Specimen Type: BLO OD Comment: Values obtained from A1C measurements can vary. For atypical A1C assays, a reported value of 7.0 could actually be between 6.72 and 7.28 if measured by a reference method. A reported value of 9.0 could actually be between 8.73 and 9.27. Ref: http://www.ngsp.org/CAPdata.asp Ordering Provider: LAURIE SANCHEZ Report Released Date/Time: Aug 28, 2024 09:07 AM Reporting Lab: [facility] [address] [facility] [address] Performing Lab: [address] [address] HEMOGLOBIN A1C 5.1 4.0-5.6 Sep 02, 2024 10:25 AM [facility] CBC AND DIFF (AUTO) BLOOD Specimen Type: BLOO D No comment entered. Ordering Provider: LAURIE SANCHEZ Report Released Date/Time: Aug 28, 2024 09:07 AM Reporting Lab: [facility] [address] [facility] [address] Performing Lab: [facility] [address] [facility] [address] WBC 8.50 10*3/uL 4.50-11.00 RBC 3.92 10*6/uL [...] 0.2 0.0-0.7 IMMATURE GRAN, ABS 0.02 10*3/uL 0.00-0.0 6 NRBC % 0.0 0.0-0.0 NRBC, ABS 0.00 10*3/uL 0.00-0.00 Sep 02, 2024 10:25 AM [facility] CALCIUM SERUM Specimen Type: SERUM No comment entered. Ordering Provider: LAURIE SANCHEZ Report Released Date/Time: Aug 28, 2024 09:07 AM Reporting Lab: [facility] [place] [facility] [address] [facility] [address] Performing Lab: [facility] [place] [facility] [address] [facility] [address] CALCIUM 10.0 mg/dL 8.5-10.2 Social History: Smoking [...] VA-TOBACCO NEVER USED [place] [facility] [place] [facility] Tobacco Use History This section includes a history of the smoking, or tobacco-related health factors, that were collected on or before the date of the Encounter. The data comes from the [place] facility where the Encounter took place. Date/Time Smoking Status/Tobacco Use Comment F acility March 29, 2023 08:30 AM VA-TOBACCO FORMER USER [facility] [place] [facility] March 29, 2023 08:30 AM VA-TOBACCO QUIT 15 YRS OR MORE [facility] [place] [facility] Feb 10, 2022 08:30 AM VA-TOBACCO FORMER USER [facility] [place] [facility] Feb 10, 2022 08:30 AM VA-TOBACCO QUIT 15 YRS OR MORE [facility] [place] [facility] Jan 14, 2021 09:00 AM VA-TOBACCO FORMER USER [facility] [place] [facility] Jan 14, 2021 09:00 AM VA-TOBACCO QUIT 15 YRS OR MORE [facility] [place] [facility] Dec 23, 2018 09:29 AM VA-TOBACCO FORMER USER [facility] [place] [facility] Dec 23, 2018 09:29 AM VA-TOBACCO QUIT 15 YRS OR MORE [facility] [place] [facility] Dec 23, 2018 08:28 AM VA-TOBACCO FORMER USER [facility] [place] [facility] Dec 23, 2018 08:28 AM VA-TOBACCO QUIT [address] [facility] [place] [facility] Jun 22, 2017 09:22 AM LIFETIME [facility]ACCO [facility] Encounter Notes: All associated encounter notes [...] for pain. labs can be done at [facility] and when labs done vet can message me to put refills on naproxen if appropriate based on labs. thank you /es/ LAURIE SANCHEZ MD PHYSICIAN Signed: 08/28/2024 09:07 Receipt Acknowledged By: 09/02/2024 12:53 /es/ RENU HARRIS, MSN, RN, CNL PRIMARY CARE TEAM NURSE 09/02/2024 12:58 /es/ ZACHARIAH BURKETT REGISTERED NURSE for BARB CALLES ========= --- Original Document --- 08/27/24 V1 PHARMACY CUSTOMER CARE MEDICATION RENEWAL: Date: Aug Division: [facility] referred by Pharmacy Call Center for medication renewal: Non-controlled/maintena nce medication Medications requested: [id number] NAPROXEN 500MG TAB Defer to primary care provider To be mailed . Please review and renew if appropriate. *This note was generated by [facility] Pharmacy Customer Care. If you have any questions or need assistance, do not contact this author. Please refer all questions to your local, on-site pharmacy departments. /yaniv/ BREEZY PERSON CPhT Fiscal Analyst, [place]/Pharmacy Customer Care Signed: 08/27/2024 17:31 Receipt Acknowledged By: 08/28/2024 09:02 /yaniv/ LAURIE SANCHEZ MD PHYSICIAN 08/28/2024 09:10 /yaniv/ RENU HARRIS, MSN, RN, CNL PRIMARY CARE TEAM NURSE 09/01/2024 ADDENDUM STATUS: COMPLETED Vet called and abstract writer spoke with . Vet will do lab work tomorrow while here onc [facility] for dental appt. /yaniv/ Barb Keith RN Primary Care Staff Nurse Signed: 09/01/2024 11:[address] [facility] [place] [facility] Aug 27, 2024 05:30 PM PHARMACY NOTE: LOCAL TITLE: V1 PHARMACY CUSTOMER CARE MEDICATION RENEWAL STANDARD TITLE: PHARMACY NOTE DATE OF NOTE: AUG 27, 2024@17:30 ENTRY DATE: AUG 27, 2024@17:30:45 AUTHOR: BREEZY PERSON EXP COSIGNER: URGENCY: STATUS: COMPLETED V1 PHARMACY CUSTOMER CARE MEDICATION RENEWAL Has ADDENDA Date: Aug Division: [facility] referred by Pharmacy Call Center for medication renewal: Non-controlled/maintena nce medication Medications requested: [id number] NAPROXEN 500MG TAB Defer to primary care provider To be mailed . Please review and renew if appropriate. *This note was generated by [facility] [facility]. If you have any questions or need assistance, do not contact this author. Please refer all questions to your local, on-site pharmacy departments. /yaniv/ BREEZY PERSON CPhT Fiscal Analyst, [place]/Pharmacy Customer Care Signed: 08/27/2024 17:31 Receipt Acknowledged By: 08/28/2024 09:02 /yaniv/ LAURIE SANCHEZ MD PHYSICIAN 08/28/2024 09:10 /yaniv/ RENU HARRIS, MSN, RN, CNL PRIMARY CARE TEAM NURSE 08/28/2024 ADDENDUM STATUS: COMPLETED naproxen med renewed for 90 days. plz call or message vet that we need to update labs to eval kidney fxn in this 79 yo male to insure safety of using nsaid PRN for pain. labs can be done at [facility] and when labs done vet can message me to put refills on naproxen if appropriate based on labs. thank you /yaniv/ LAURIE SANCHEZ MD PHYSICIAN Signed: 08/28/2024 09:07 Receipt Acknowledged By: * AWAITING SIGNATURE * RENU HARRIS * AWAITING SIGNATURE * BARB KEITH 09/01/2024 ADDENDUM STATUS: COMPLETED Vet called and abstract writer spoke with . Vet will do lab work tomorrow while here onc [facility] for dental appt. /yaniv/ Barb Keith RN Primary Care Staff Nurse Signed: 09/01/2024 11:[address] [facility]
[2025-03-19 09:24] LABS: Blood Urea Nitrogen 32 mg/dL (9-16); Estimated Glomerular Filt Rate 45
== END 2025-03-19 08:04 | disposition home or self-care (01) ==
LOC: HO.LAB 08:03
PROVIDERS: PCP Internal Medicine Medical Oncology; Visit Provider Surgery Vascular Surgery
DX: I73.9 Peripheral vascular disease, unspecified (principal)
CPT/HCPCS: 36415; 82565; 84520

== ENCOUNTER 2025-04-16 13:54 | Outpatient (REF) | payer MEDICARE, SELFPAY ==
--- NOTE | ~2025-04-16 | CT_ITS ---
CLINICAL HISTORY: I73.9 - Peripheral vascular disease, unspecified CT angiography abdomen and pelvis with bilateral lower extremity runoff using IV contrast. 3-D post processing. Comparison: None Findings: Vascular: The aorta demonstrates severe soft and calcified atherosclerotic disease without dissection or aneurysm. Renal arteries exhibit moderate atherosclerotic disease without significant stenosis. The celiac artery and superior mesenteric artery are widely patent. The inferior mesenteric artery is also patent. Right lower extremity: Severe atherosclerotic disease with mild and moderate tandem stenosis involving the common, internal and external iliac arteries. The right common femoral artery is widely patent. The profunda femoral artery demonstrates severe atherosclerotic disease with moderate stenosis proximally. The superficial femoral artery demonstrates severe atherosclerotic disease and moderate and moderately severe stenosis. The right SFA stents appear patent. Severe atherosclerotic disease of the popliteal artery. There is somewhat attenuated but patent three-vessel runoff to the right foot. Left lower extremity Severe atherosclerotic disease of the common, internal and external iliac arteries, with mild and moderate tandem stenosis. The left common femoral artery is patent. The profunda femoral artery is widely patent. Severe atherosclerotic disease of the superficial femoral artery with tandem severe stenosis. The popliteal artery demonstrates moderately severe stenosis. Despite this, there is attenuated three-vessel runoff to the left foot. Nonvascular: Lung bases demonstrate mild chronic changes. The liver, gallbladder, spleen, adrenal glands and pancreas are unremarkable. Kidneys demonstrate no suspicious lesion or obstructive uropathy. Bladder is decompressed. The prostate gland is enlarged. Extensive diverticulosis without evidence of diverticulitis. No acute osseous finding. Impression: Moderately severe atherosclerotic disease with mixed inflow and outflow disease as detailed. Despite this there is attenuated three-vessel runoff to both feet. Several incidental findings. This document has been electronically signed by: Govind Razo MD on 04/17/2025 08:49:16
[2025-04-16] MEDS: iohexoL 350 MG/ML 100 ML INFUS..BTL IV (16:06)
--- OUTSIDE RECORDS SUMMARY | 2025-04-16 16:27 | XMS_ITS ---
Author Organization Trevon Colby III, MD Address [address] [place] [address] [place] [address] Care Team Providers Care Manufacturing Electrician Name Role Phone Trevon Colby Primary Care [...] Date Provider Diagnosis Trevon Colby III, MD [address] [place] [address] [address] [place] [address] 01/20/2025 Trevon Colby Plan Of Treatment Medication Medication Name Sig Start Date Stop Date Notes Ezetimibe 10 MG 1 tablet Orally Once a day for 90 days 01/20/2025 Atorvastatin Calcium 80 MG 1 tablet Oral ly Once a day for 90 days 01/20/2025 Next Appt Details Provider Name:Trevon Colby, 05/05/2025 09:30:00 AM, [address] [place] [address] [place], [address], Progress Notes * Spencer PRICEDOB:[birth year] (79 yo M)Acc No.[id number]:01/20/2025 Patient:?Spencer PRICE :1945???Age:79 Y???Sex:Male Address: [address], [facility] [place], [address] * Refills? Start Ezetimibe Tablet, 10 MG, Orally, 90 Tablet, 1 tablet, Once a day, 90 days, Refills=3 Start Atorvastatin Calcium Tablet, 80 MG, Orally, 90 Tablet, 1 tablet, Once a day, 90 days, Refills=3 * true * Date:? Generated for Allison jimenez/Bhavin/eTreinasmitting on:?04/16/2025 04:26 PM EDT
== END 2025-04-16 13:55 | disposition home or self-care (01) ==
LOC: HO.CT 13:54
PROVIDERS: PCP Internal Medicine Medical Oncology; Visit Provider Surgery Vascular Surgery
DX: I73.9 Peripheral vascular disease, unspecified (principal)
CPT/HCPCS: 75635; Q9967

== ENCOUNTER → 2025-04-16 14:00 | Outpatient (BNV) | payer MEDICARE, SELFPAY | PROVIDERS: PCP Internal Medicine Medical Oncology; Visit Provider Radiology Vascular & Interventional Radiology | DX: I25.10 Atherosclerotic heart disease of native coronary artery without angina pectoris (principal) | CPT/HCPCS: 75635 ==

== ENCOUNTER 2025-04-23 08:51 | Outpatient (AMB) | payer MEDICARE, SELFPAY ==
[2025-04-23 09:04] VITALS: BMI 28.6
--- NOTE | 2025-04-23 09:04 | MHC.OFFVIS ---
Vital Signs 04/23/25 09:04 Height 5 ft 5 in Weight 172 lb BMI 28.6 Intake Visit Reasons: 6m follow up s/p CTA 04/16/25 Intake Note: 6 mo follow up CTA ABd/pelvis w/ runoff 04/16/25. Pt states bilateral LE weakness and s/p back procedure has tingling in toes. Pt states he can walk about 50 yards. Soakers Supervisor Required: No Accompanied by: Self / Same As Patient Allergies oxycodone [From PERCOCET] Allergy (Severe, Verified 04/23/25 09:07) headache/diaphoresis/nausea bee pollen [bee stings] Allergy (Intermediate, Verified 04/23/25 09:07) Hives HPI HPI 6m follow up s/p CTA 04/16/25: Details: The patient is an 79-year-old male presenting with concerns associated with lower extremity arterial insufficiency and persistent numbness. His symptoms have progressed over time since he underwent back surgery, manifesting primarily as numbness in the feet with constant severity regardless of activity levels. Previous interventions include stenting in 2017 and 2020, which have helped maintain patent arterial flow to some degree. The patient reports diminished walking capacity, approximately 50 yards, before experiencing leg tightness. Daily management includes lotion application to prevent skin dryness due to a burning sensation. Notably, he denies diabetes, and current medications include baby aspirin. FOR[facility]LY [facility] Medical History Bladder cancer Ascending aorta dilatation PONV (postoperative nausea and vomiting) Pulmonary emphysema Dyspnea on exertion COPD (chronic obstructive pulmonary disease) CAD (coronary artery disease) HTN (hypertension) Hyperlipidemia PAD (peripheral artery disease) Hypercholesteremia Surgical History Hx of bilateral cataract extraction Hx of cystoscopy History of back surgery H/O cardiac catheterization Stented coronary artery Hx of colonoscopy Hx of inguinal hernia repair Hx of appendectomy History of hip surgery History of femoral angiogram Family History Father CVD (cardiovascular disease) Mother Lung cancer Social History Household Members: Spouse Housing: House Are you a primary health care facility administrator to a significant other at home: No Do you presently have visiting nurse or other home services: No Patient Tobacco Use Status: Never used Tobacco Tobacco use type: Cigarette Years Smoked: 25 service: Yes Physical Exam Vital Signs: BMI result Body Mass Index 28.6 Results Reviewed Results Reviewed: CT angiogram from 04/16/2025 was reviewed and demonstrates bilateral iliac disease along with SFA disease. Right lower extremity stent is patent. Written report and images were reviewed. Assessment & Plan Assessment & Plan (1) PAD (peripheral artery disease): Comment: (follows w/Dr. Bear) 04/04/2023- right SFA atherectomy and stent placement 04/13/2021- angioplasty right peroneal and popliteal artery, angioplasty and stent of right SFA 06/2018 Left fem endarterectomy Right superficial fem artery atherectomy and angioplasty Right atherectomy and balloon angioplasty of the popliteal & superficial arteries and peroneal artery. 12/19/2017 Code(s): I73.9 - Peripheral vascular disease, unspecified Category: Medical Plan: Patient notes leg pain when walking distances. I have discussed the pathophysiology of peripheral vascular disease with the patient. I have also discussed risk factor modification. I have reviewed the patient's arterial testing which reveals right leg inflow disease. the patient would benefit from a right leg endovascular peripheral angiogram with possible angioplasty, stent, and/or atherectomy. This has been discussed in detail with the patient along with risks, benefits, and complications. This includes but is not limited to bleeding, infection, heart attack, need for emergent surgical repair, limb ischemia, blood vessel damage, bleeding, puncture, kidney injury, bruising, allergic reaction, and skin reaction. The patient demonstrates a clear understanding. We will schedule for the next appropriate time. Thank you for allowing us to assist in this patient's care. Coding Level of Care Code Est Pt Level 4 (09158) Diagnoses PAD (peripheral artery disease) I73.9
--- OUTSIDE RECORDS SUMMARY | 2025-04-23 09:24 | XMS_ITS ---
Author Organization Trevon Colby III, MD Address [address] [place] [address] [place] [address] Care Team Providers Care Mate Chief Name Role Phone Trevon Colby Primary Care Provider [phone] Medications Medication SIG (Take, Route, Frequency, Duration) [...] Provider Diagnosis Trevon Colby III, MD [address] [place] [address] [place] [address] 01/20/2025 Trevon Colby Plan Of Treatment Medication Medication Name Sig Start Date Stop Date Notes Ezetimibe 10 MG 1 tablet Orally Once a day for 90 days 01/20/2025 Atorvastatin Calcium 80 MG 1 tablet Oral ly Once a day for 90 days 01/20/2025 Next Appt Details Provider Name:Trevon Colby, 05/05/2025 09:30:00 AM, [address] [place] [address] [place], [address], Progress Notes * Spencer PR[birth year]EDOB:[birth year] (79 yo M)Acc No.[id number]:01/20/2025 Patient:?Spencer PRICE :[id number]???Age:79 Y???Sex:Male Address: [address] [place], [address] * Refills? Start Ezetimibe Tablet, 10 MG, Orally, 90 Tablet, 1 tablet, Once a day, 90 days, Refills=3 Start Atorvastatin Calcium Tablet, 80 MG, Orally, 90 Tablet, 1 tablet, Once a day, 90 days, Refills=3 * true * Date:? Generated for Allison jimenez/Bhavin/eTreinasmitting on:?04/23/2025 09:23 AM EDT
== END 2025-04-23 09:58 | disposition home or self-care (01) ==
LOC: HO.HVS 08:52
PROVIDERS: PCP Internal Medicine Medical Oncology; Visit Provider Surgery Vascular Surgery
DX: I73.9 Peripheral vascular disease, unspecified (principal)
CPT/HCPCS: 99214

== ENCOUNTER → 2025-04-23 08:51 | Outpatient (BNVA) | payer MEDICARE, SELFPAY | PROVIDERS: PCP Internal Medicine Medical Oncology; Visit Provider Surgery Vascular Surgery | DX: R20.2 Paresthesia of skin (principal); I73.9 Peripheral vascular disease, unspecified | CPT/HCPCS: 99212 ==

== ENCOUNTER 2025-04-29 08:52 | Outpatient (REF) | payer MEDICARE, SELFPAY ==
--- OUTSIDE RECORDS SUMMARY | 2025-01-20 07:36 | XMS_ITS ---
Author Organization Trevon Colby III, MD Address [address] [place] [address] [place] [address] Care Team Providers Care Data Warehousing Manager Name Role Phone Trevon Colby Primary [...] Provider Diagnosis Trevon Colby III, MD [address] [place] [address] [place] [address] 01/20/2025 Trevon Colby Plan Of Treatment Medication Medication Name Sig Start Date Stop Date Notes Ezetimibe 10 MG 1 tablet Orally Once a day for 90 days 01/20/2025 Atorvastatin Calcium 80 MG 1 tablet Oral ly Once a day for 90 days 01/20/2025 Next Appt Details Provider Name:Trevon Colby, 05/05/2025 09:30:00 AM, [address] [place] [address] [place], [address], Progress Notes * Spencer PR[birth year]EDOB:[birth year] (79 yo M)Acc No.[id number]:01/20/2025 Patient: Spencer PATEL :1945 A ge:79 Y S ex:Male Address: [address], [place], [address] * Refills Start Ezetimibe Tablet, 10 MG, Orally, 90 Tablet, 1 tablet, Once a day, 90 days, Refills=3 Start Atorvastatin Calcium Tablet, 80 MG, Orally, 90 Tablet, 1 tablet, Once a day, 90 days, Refills=3 * true * Date: Generated for Allison jimenez/Bhavin/Demetriaitting on: 0 04/29/2025 09:26 AM EDT
[2025-04-29 11:41] LABS: MANUAL DIFF FLAG NO
[2025-04-29 11:51] LABS: Basophils Absolute Auto 0.1 X10*3/uL (0.0-0.2); Basophils Percent Auto 1.3 % (0-2); Eosinophils Absolute Auto 0.3 X10*3/uL (0.0-0.4); Eosinophils Percent Auto 6.6 % (0-4); Hematocrit 36.7 % (42.0-52.0); Hemoglobin 12.2 g/dl (14.0-18.0); Imm Gran Abs Auto 0.01 X10*3/uL (0.00-0.03); Imm Gran Pct Auto 0.2 % (0.0-0.4); Lymphocytes Absolute Auto 1.2 X10*3/uL (1.2-4.9); Lymphocytes Percent Auto 25.5 % (20-40); Mean Corpuscular HGB Conc 33.2 g/dl (31.0-36.0); Mean Corpuscular Hemoglobin 33.2 pg (27.0-33.0); Mean Corpuscular Volume 99.7 fL (80.0-98.0); Mean Platelet Volume 9.6 fL (9.4-12.4); Monocytes Absolute Auto 0.6 X10*3/uL (0.1-1.2); Monocytes Percent Auto 12.3 % (2-11); Neutrophils Absolute Auto 2.6 x10*3/uL (2.0-8.3); Neutrophils Percent Auto 54.1 % (45-73); Platelet Count 231 X10*3/uL (160-400); Red Blood Count 3.68 X10*6/uL (4.60-5.80); Red Cell Distribution Width 12.9 % (11.0-16.0); White Blood Count 4.7 X10*3/uL (4.8-10.8)
[2025-04-29 12:03] LABS: Alanine Aminotransferase 16 U/L (0-40); Albumin Level 3.9 g/dL (3.5-5.0); Alkaline Phosphatase 93 U/L (39-117); Anion Gap 8 (12-20); Aspartate Amino Transferase 28 U/L (5-37); Bilirubin Total 0.7 mg/dL (0.0-1.0); Blood Urea Nitrogen 31 mg/dL (9-16); Calcium 9.5 mg/dL (8.4-10.2); Carbon Dioxide 26 mmol/L (22-29); Chloride 111 mmol/L (96-108); Cholesterol 104 mg/dL (<200); Estimated Glomerular Filt Rate 46; Glucose Fasting 91 mg/dL (60-99); HDL Cholesterol 49 mg/dL (>40); LDL Cholesterol Calculated 46 mg/dL (<100); Potassium 5.1 mmol/L (3.3-5.1); Sodium 140 mmol/L (135-145); Total Protein 6.5 g/dL (6.5-8.0); Triglycerides 46 mg/dL (<150)
== END 2025-04-29 08:53 | disposition home or self-care (01) ==
LOC: HO.WFDLDS 08:52
PROVIDERS: Visit Provider Internal Medicine Medical Oncology
DX: N18.2 Chronic kidney disease, stage 2 (mild) (principal); M16.11 Unilateral primary osteoarthritis, right hip; E78.5 Hyperlipidemia, unspecified
CPT/HCPCS: 36415; 80053; 80061; 85025

== ENCOUNTER 2025-05-06 05:48 | Day surgery (SDC) | payer MEDICARE, SELFPAY ==
--- OUTSIDE RECORDS SUMMARY | 2025-01-20 07:36 | XMS_ITS ---
Author Organization Trevon Colby III, MD Address [address] [place] [address] [place] [address] Care Team Providers Care Tours Captain Name Role Phone Trevon Colby Primary Care Provider [phone] Medications Medication SIG (Take, Route, Frequency, Duration) [...] Date Provider Diagnosis Trevon Colby III, MD [address] [place] [address] [place] [address] 01/20/2025 Trevon Colby Plan Of Treatment Medication Medication Name Sig Start Date Stop Date Notes Ezetimibe 10 MG 1 tablet Orally Once a day for 90 days 01/20/2025 Atorvastatin Calcium 80 MG 1 tablet Oral ly Once a day for 90 days 01/20/2025 Next Appt Details Provider Name:Trevon Colby, 05/05/2025 09:30:00 AM, [address] [place] [address] [address], [address], Progress Notes * Spencer PR[birth year]EDOB:[birth year] (79 yo M)Acc No.[id number]:01/20/2025 Patient: Spencer PATEL :1945 A ge:79 Y S ex:Male Address: [address], [place], [address] * Refills Start Ezetimibe Tablet, 10 MG, Orally, 90 Tablet, 1 tablet, Once a day, 90 days, Refills=3 Start Atorvastatin Calcium Tablet, 80 MG, Orally, 90 Tablet, 1 tablet, Once a day, 90 days, Refills=3 * true * Date: Generated for Allison jimenez/Bhavin/Demetriaitting on: 0 05/01/2025 01:09 PM EDT
[2025-05-06] VITALS (18 sets, daily range): BP systolic 118–151; BP diastolic 50–62; PULSE 50–59; RESP 12–19; TEMP 36.1–36.4; O2SAT 94–100; BMI 27.3
[2025-05-06 06:38] LABS: MANUAL DIFF FLAG NO
[2025-05-06 06:42] LABS: Basophils Absolute Auto 0.1 X10*3/uL (0.0-0.2); Eosinophils Absolute Auto 0.3 X10*3/uL (0.0-0.4); Eosinophils Percent Auto 6.4 % (0-4); Hematocrit 36.2 % (42.0-52.0); Hemoglobin 12.3 g/dl (14.0-18.0); Imm Gran Abs Auto 0.01 X10*3/uL (0.00-0.03); Imm Gran Pct Auto 0.2 % (0.0-0.4); Lymphocytes Absolute Auto 1.4 X10*3/uL (1.2-4.9); Lymphocytes Percent Auto 26.6 % (20-40); Mean Corpuscular Hemoglobin 33.6 pg (27.0-33.0); Mean Corpuscular Volume 98.9 fL (80.0-98.0); Mean Platelet Volume 9.4 fL (9.4-12.4); Monocytes Absolute Auto 0.6 X10*3/uL (0.1-1.2); Monocytes Percent Auto 11.4 % (2-11); Neutrophils Absolute Auto 2.8 x10*3/uL (2.0-8.3); Neutrophils Percent Auto 54.4 % (45-73); Platelet Count 221 X10*3/uL (160-400); Red Blood Count 3.66 X10*6/uL (4.60-5.80); White Blood Count 5.2 X10*3/uL (4.8-10.8)
[2025-05-06] MEDS: 0.9 % Sodium Chloride 1,000 ML 100 ML IVCONT (06:47)
[2025-05-06 07:00] LABS: Blood Urea Nitrogen 46 mg/dL (9-16); Creatinine Clr Calc Pharmacy 32.9; Estimated Glomerular Filt Rate 40
[2025-05-06] MEDS: Midazolam HCl 2 MG/2 ML VIAL 0.5 MG IVPUSH (08:05)
[2025-05-06] MEDS: fentaNYL citrate/PF 100 MCG/2 ML VIAL 25 MCG IVPUSH (08:05)
--- NOTE | 2025-05-06 08:31 | P.OP_ITS ---
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 Ultrasound-guided right common femoral access 2. Aortogram with right lower extremity runoff Surgeon:Rusty Bear M.D., FACS, RPVI Brake Linings Coater:None Anesthesia: Local with moderate conscious sedation. Total intraservice mo derate sedation time was 17 minutes. I monitored the patient's level of consciousness and physiologic status continuously throughout the procedure. Specimens:none Drains:none Estimated blood loss: Less than 10 ml Radiation Dose: 257.4 mGy Implant: None Indications: 79-year-old gentleman with severe right lower extremity pain and what appeared to be activity limiting claudication now presents for endovascular intervention. Noninvasive testing was concerning for inflow disease. The patient has signed the informed consent after reviewing risks, complications, benefits, and alternatives previously discussed with the patient. The patient was given the opportunity to ask any additional questions or voice any concerns. All questions were answered to the patient's satisfaction. Procedure in detail: Patient was brought to the angiography suite prior to which a time-out was called for patient identification and site verification. Bilateral groins were prepped and draped in the standard surgical fashion. Under ultrasound guidance right common femoral was punctured with micro puncture needle and wire. Subsequently a precision 5 Colombian sheath was then placed. Bentson wire was advanced to the level of the aorta. 5 Colombian Flush catheter was brought up and parked at the level of the renal arteries. Aortogram was then undertaken. Catheter was brought down to the level of the iliac bifurcation. Iliacs and runoff was performed through the flush catheter that was parked at the bifurcation . At this time there was a high angulation of the iliacs. Multiple orthogonal views were undertaken. There was no evidence of stenosis per se. We removed the catheter and through the sheath we did the rest of the right lower extremity runoff. No intervention was indicated. A CELT 5 closure device was then placed. Adequate hemostasis was achieved. Patient tolerated the procedure well. Returned to recovery with stable vitals. Interpretation of films: 1. Ultrasound demonstrates appropriate femoral access site. Vessel was patent with minimal stenosis. Needle entry was visualized. Image of ultrasound was saved. 2. Aortogram demonstrates appropriate caliber aorta. Minimal disease. Appropriate take-off of the renals. 3. Iliac images demonstrate significant tortuosity no evidence of flow-limiting stenosis. Spine hardware was noted 4. Right Leg Common femoral artery: Minimal disease Profundus Femoris: No significant disease Superficial femoral artery: No significant disease stent was patent all the way throughout Popliteal artery (p1,p2,p3): Occluded popliteal reconstitutes at the distal P3 segment. Origin of a T tibioperoneal trunk was noted. Anterior tibial artery: Patent supplies foot Peroneal artery: Diminished but supplies down to foot Posterior tibial artery: Patent supplies foot Dorsalis pedis/plantar arch: Nearly complete Conclusion: 1. Successful diagnostic angiogram 2. Anticoagulation status: No change This note is constructed using voice recognition software. While every effort has been made to ensure accuracy, aboriginal community council member errors may have been included. Thank you for allowing me to participate in the care of your patient. Yours sincerely, Rusty Bear MD, FACS, R.P.V.I.
== END 2025-05-06 10:48 | disposition home or self-care (01) ==
PROVIDERS: PCP Internal Medicine Medical Oncology; Visit Provider Surgery Vascular Surgery
DX: I70.211 Atherosclerosis of native arteries of extremities with intermittent claudication, right leg (principal); Z95.820 Peripheral vascular angioplasty status with implants and grafts; R20.0 Anesthesia of skin; R26.2 Difficulty in walking, not elsewhere classified; M62.81 Muscle weakness (generalized); J44.9 Chronic obstructive pulmonary disease, unspecified; J43.9 Emphysema, unspecified; Z87.891 Personal history of nicotine dependence; E78.00 Pure hypercholesterolemia, unspecified; I25.10 Atherosclerotic heart disease of native coronary artery without angina pectoris; Z95.5 Presence of coronary angioplasty implant and graft; Z98.890 Other specified postprocedural states
CPT/HCPCS: 36246; 36415; 75630; 76937; 82565; 84520; 85025; 99152; C1760; C1769; C1887; C1894; J1644; J2250; J3010; Q9967

== ENCOUNTER → 2025-05-06 05:48 | Outpatient (BNV) | payer MEDICARE, SELFPAY | PROVIDERS: PCP Internal Medicine Medical Oncology; Visit Provider Surgery Vascular Surgery | DX: I70.211 Atherosclerosis of native arteries of extremities with intermittent claudication, right leg (principal) | CPT/HCPCS: 36245; 75630; 76937; 99152 ==

== ENCOUNTER 2025-05-12 12:36 | Outpatient (AMB) | payer MEDICARE, SELFPAY ==
--- OUTSIDE RECORDS SUMMARY | 2025-04-29 04:25 | XMS_ITS | Continuity of Care Document ---
Author Name [facility] Organization [facility] Care Team Providers Care Residential Appraiser Name Role Phone [facility] Unavailable Unavailable Problems Combined list of problems [...] [place] [facility] - Coronary Artery Disease ([facility] [id number]) Active Condition Jun 17, 2022 Entered By: PAU MARY Comment: Following with Dr. 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, 2018 Entered By: MARI SCHMID Comment: BCG- teatment ( ) cystoscopy scheduled 12/26/18 and 01/17/19 [facility] [place] [facility] Degenerative disc disease Active Condition [facility] [place] [facility] H/O cardiac surgery Active Condition Jun 22, 2017 Entered By: MARI SCHMID Comment: stent 2015 [facility] [place] [facility] History of - surgery Active Condition [...] T an AAug 2016 Entered By: MARI SCHIMD Comment: EYE- Cataract- both eyesDec 28, 2017 Entered By: MARI SCHMID Comment: 10/2018 Colonscopy - polyps ( 5 yrs )- [facility] 2018 Entered By: MARI SCHMID Comment: [...] wants MRI of lumbar spine [facility] [place] [facility] PAD - Peripheral arterial disease Active Condition Dec 28 8 Entered By: MARI SCHMID Comment: 2nd aortogram- bil 12/19/17Au2021 Entered By: PAU MARY Comment: with caulidcation, though improved, following with Vascular-- Dr. Bear- has required multiple LE interventions, Vascular considering switchign plavix to xarelto 2.5mg bid [facility] [place] [facility] Screening status Active Condition Dec 28, 2017 Entered By: MARI SCHMID Comment: Colonoscopy 2018 ( no result ) - per pt repeat in 5 yrs.Dec 28, 2017 Entered By: MARI SCHMID Comment: aortogram bilateral lower legs - [facility] 12/19/17 - DR SYLWIA STROUD [facility] [place] [facility] Under care of multiple providers Active Condition Dec 28, 2017 Entered By: MARI SCHMID Comment: non va- Dr Trevon Colby ( in office and the [facility])Jun 28, 2017 Entered By: MARI SCHMID Comment: Urology- Dr Petit 2018 Entered By: MARI SCHMID Comment: [facility]- ( eye/ PODIATRY) [facility] Diagnosis: ICD-10-CM K03.6 Deposits [accretions] on teeth Active Diagnosis [facility] Diagnosis: ICD-10-CM I10 Essential (primary) hypertension Active Diagnosis [facility] Diagnosis: ICD-10-CM M54.17 Radiculopathy, lumbosacral region Active Diagnosis [facility] Medications Combined list of outpatient medications from Department of Defense and [facility] facilities.Medications provided include 1) outpatient medications from the last 15 months, and 2) patient-reported medications. Medication Details Route Status Patient Instructions Prescription Expires Prescription Number Last Dispense Date Ordering Provider Order Date Order Qty Source ATORVASTATI N CA 80MG TAB TAKE ONE TABLET BY MOUTH ONCE DAILY FOR CHOLESTE ROL ORAL 03/25/2025 [id number] ERON MANUEL 2023 90 [facility] CLOPIDOGREL BISULFATE 75MG TAB TAKE ONE TABLET BY MOUTH ONCE DAILY ORAL DISCONT INUED (EDIT) 03/29/2024 [id number] ERON MANUEL 2022 90 [facility] CLOPIDOGREL BISULFATE 75MG TAB TAKE ONE TABLET BY MOUTH ONCE DAILY FOR MYOCARDI AL REINFARC TION PREVENTI ON ORAL 03/25/2025 [id number] 4 ERON MANUEL 2023 90 [facility] EZETIMIBE 10MG TAB TAKE ONE TABLET BY MOUTH ONCE DAILY TO LOWER CHOLESTE ROL ORAL 03/25/2025 [id number] ERON MANUEL 2023 90 [facility] HYDROCHLORO THIAZIDE 12.5MG/NISHA NOPRIL 20MG TAB TAKE 1 TABLET BY MOUTH AT BEDTIME FOR HIGH BLOOD PRESSURE (NOTE DOSE) ORAL 03/25/2025 [id number] ERON MANUEL 2023 90 [facility] METOPROLOL SUCCINATE 50MG TAB,SA TAKE ONE TABLET BY MOUTH ONCE DAILY FOR BLOOD PRESSURE /HEART ORAL 03/25/2025 [id number] ERON MANUEL 2023 90 [facility] [place] [facility] NAPROXEN 500MG TAB TAKE ONE TABLET BY MOUTH TWICE DAILY NEEDED FOR PAIN TAKE WITH FOOD ORAL 10/12/2024 [id number] 4 ERON MANUEL 2023 90 [facility] SODIUM FLUORIDE 1.1% TOOTHPASTE BRUSH SMALL AMOUNT TO TEETH TWICE DAILY FOR TOOTH DECAY PREVENTI ON DENTAL ACTIVE 09/03/2025 [id number] 4 MIKAELA HEBERT 2023 51 [facility] [place] [facility] [facility] SODIUM FLUORIDE 1.1% TOOTHPASTE BRUSH SMALL AMOUNT TO TEETH TWICE DAILY DENTAL 06/01/2024 [id number] CRISSY MAHER 2022 204 [facility] [place] [facility] Allergies, Adverse Reactions, Alerts Combined list of allergies from Department of Defense and Veterans Affairs facilities. It does not include entries that were removed or entered in error. Substance Category Reaction Severity Reaction type Status Date Reported Comments Source PERCOCET Propensity to adverse reactions to drug (finding) Sweating active 7 [facility] [place] [facility] Immunizations Combined list of available immunizations from the Department of Defense and Veterans Affairs facilities. Immunization Series Date Given Administered By Site Reaction Lot Number CVX Code Drug Quality Internship Status Comments Source INFLUENZA, UNSPECIFIED FORMULATION 2022 88 complet ed HISTORICA L INFORMATI ON - SOURCE UNSPECIFI ED, [facility] [place] [facility] INFLUENZA, UNSPECIFIED FORMULATION 2021 88 complet ed HISTORICA L INFORMATI ON - SOURCE UNSPECIFI ED, [facility] COVID-19 (MODERNA), MRNA, LNP-S, PF, 100 MCG/0.5ML DOSE OR 50 MCG/0.25ML DOSE 3 2020 207 complet ed [facility] COVID-19 (MODERNA), MRNA, LNP-S, PF, 100 MCG/0.5 ML DOSE 2 2020 207 complet ed MOD; [id number]; 1 [facility] [place] COVID-19 (MODERNA), MRNA, LNP-S, PF, 100 MCG/0.5 ML DOSE 1 2020 207 complet ed MOD; [id number]; 1 [facility] [place] [...] [address] Colby office [facility] [place] PNEUMOCOCCAL CONJUGATE PCV 13 2016 133 complet ed [facility] ZOSTER (SHINGLES) (HISTORICAL) 2016 121 complet ed Proximal Left Arm [facility] FLU,3 YRS (HISTORICAL) [address] Sorensen [facility] [place] Results Combined [...] Aug 28, 2024 09:07 AM Reporting Lab: [facility] [place] [facility] [address] [facility] [address] Performing Lab: [facility] [place] [facility] [address] [facility] [address] [facility] [place] [facility] MICROALBU MIN CREATININ E RATIO PANEL MICROALBUMI N [MASS/VOLUM E] IN URINE 0.7 mg/dL 09/02 Specimen Type: URINE No comment entered. Ordering Provider: LAURIE CHINCHILLA Report Released Date/Time: Aug 28, 2024 09:07 AM Reporting Lab: [facility] [place] [address] [address] Performing Lab: [facility] [place] [facility] [address] [facility] [address] [facility] [place] [facility] MICROALBU MIN CREATININ E RATIO PANEL CREATININE [MASS/VOLUM E] IN URINE 52.17 mg/dL 09/02 Specimen Type: URINE No comment entered. Ordering Provider: LAURIE CHINCHILLA Report Released Date/Time: Aug 28, 2024 09:07 AM Reporting Lab: [facility] [place] [address] [address] Performing Lab: [facility] [place] [facility] [address] [facility] [address] [facility] [place] [facility] BASIC METABOLIC PANEL (non-fast ing) UREA NITROGEN [MASS/VOLUM E] IN SERUM OR PLASMA 33 mg/dL 7 - 25 09/02 H Specimen Type: SERUM No comment entered. Ordering Provider: LAURIE CHINCHILLA Report Released Date/Time: Aug 28, 2024 09:07 AM Reporting Lab: [facility] [place] [address] [address] Performing Lab: [facility] [address] [facility] [address] [facility] BASIC METABOLIC PANEL (non-fast ing) GLUCOSE [MASS/VOLUM E] IN SERUM OR PLASMA 97 mg/dL 65 - 100 09/02 Specimen Type: SERUM No comment entered. Ordering Provider: LAURIE CHINCHILLA Report Released Date/Time: Aug 28, 2024 09:07 AM Reporting Lab: [facility] [address] [facility] [address] Performing Lab: [facility] [address] [facility] [address] [facility] BASIC METABOLIC PANEL (non-fast ing) SODIUM [MOLES/VOLU ME] IN SERUM OR PLASMA 136 mmol/L 135 - 145 09/02 Specimen Type: SERUM No comment entered. Ordering Provider: LAURIE CHINCHILLA Report Released Date/Time: Aug 28, 2024 09:07 AM Reporting Lab: [facility] [address] [facility] [address] Performing Lab: [facility] [address] [facility] [address] [facility] BASIC METABOLIC PANEL (non-fast ing) POTASSIUM [MOLES/VOLU ME] IN SERUM OR PLASMA 4.7 mmol/L 3.5 - 5.0 09/02 Specimen Type: SERUM No comment entered. Ordering Provider: LAURIE CHINCHILLA Report Released Date/Time: Aug 28, 2024 09:07 AM Reporting Lab: [facility] [address] [facility] [address] Performing Lab: [facility] [address] [facility] [address] [facility] BASIC METABOLIC PANEL (non-fast ing) CHLORIDE [MOLES/VOLU ME] IN SERUM OR PLASMA 106 mmol/L 100 - 110 09/02 Specimen Type: SERUM No comment entered. Ordering Provider: LAURIE CHINCHILLA Report Released Date/Time: Aug 28, 2024 09:07 AM Reporting Lab: [facility]N [facility] [address] [facility] [address] Performing Lab: [facility]USE[address] [address] [facility]ITALRBEACON [facility]HAVIOR[facility] HOSPITALN [facility] BASIC METABOLIC PANEL (non-fast ing) CARBON DIOXIDE, TOTAL [MOLES/VOLU ME] IN SERUM OR PLASMA 24 meq/L 20 - 30 09/02 Specimen Type: SERUM No comment entered. Ordering Provider: LAURIE CHINCHILLA Report Released Date/Time: Aug 28, 2024 09:07 AM Reporting Lab: [facility] TRN [address] [address] Performing Lab: [facility]RL [facility]N [address] [address] [facility]ITALR[facility]AC[facility]IOR[facility] HOSPITALN [facility] BASIC METABOLIC PANEL (non-fast ing) CREATININE [MASS/VOLUM E] IN SERUM OR PLASMA 1.40 mg/dL 0.50 - 1.40 09/02 Specimen Type: SERUM No comment entered. Ordering Provider: LAURIE CHINHCILLA Report Released Date/Time: Aug 28, 2024 09:07 AM Reporting Lab: [facility] TRN [facility]ITALUSE[address] [address] Performing Lab: [facility] TRN [facility]USE[address] [address] [facility]N [facility] BASIC METABOLIC PANEL (non-fast ing) GLOMERULAR FILTRATION RATE/1.73 SQ M.PREDICTED [VOLUME RATE/AREA] IN SERUM, PLASMA OR BLOOD BY CREATININE- BASED FORMULA (CKD-EPI 2020) 50 mL/min 60 09/02 L Specimen Type: SERUM No comment entered. Ordering Provider: LAURIE CHINCHILLA Report Released Date/Time: Aug 28, 2024 09:07 AM Reporting Lab: [facility]OSPITALRCHILDR[facility] CAMPUSTRN [facility]ITALUSE[address] [address] Performing Lab: [facility] [place] [facility] [address] [facility] [address] [facility] [place] [facility] LIPID PANEL, NON FASTING CHOLESTEROL [MASS/VOLUM E] IN SERUM OR PLASMA 128 mg/dL 09/02 Specimen Type: SERUM No comment entered. Ordering Provider: LAURIE CHINCHILLA Report Released Date/Time: Aug 28, 2024 09:07 AM Reporting Lab: [facility] [place] [facility] [address] [facility] [address] Performing Lab: [facility] [address] [facility] [address] [facility]ITALRL TRN [facility]ITALUSE [facility] LIPID PANEL, NON FASTING TRIGLYCERID E [MASS/VOLUM E] IN SERUM OR PLASMA 69 mg/dL 0 - 150 09/02 Specimen Type: SERUM No comment entered. Ordering Provider: LAURIE CHINCHILLA Report Released Date/Time: Aug 28, 2024 09:07 AM Reporting Lab: [facility]ITALRL [facility] [place] [facility] [address] [facility] [address] Performing Lab: [facility]ITALUSETS [facility] [address] [facility] [address] [facility]RL [facility] [place] [facility] LIPID PANEL, NON FASTING CHOLESTEROL IN LDL [MASS/VOLUM E] IN SERUM OR PLASMA BY CALCULATION 60 mg/dL 0 - 129 09/02 Specimen Type: SERUM No comment entered. Ordering Provider: LAURIE CHINCHILLA Report Released Date/Time: Aug 28, 2024 09:07 AM Reporting Lab: [facility] [place] [facility] [address] [facility] [address] Performing Lab: [facility] [place] [facility] [address] [facility] [address] [facility] [place] [facility] LIPID PANEL, NON FASTING CHOLESTEROL .TOTAL/CHOL ESTEROL IN HDL [MASS RATIO] IN SERUM OR PLASMA 2.4 09/02 Specimen Type: SERUM No comment entered. Ordering Provider: LAURIE CHINCHILLA Report Released Date/Time: Aug 28, 2024 09:07 AM Reporting Lab: [facility] [address] [facility] [address] Performing Lab: [facility] [address] [facility] [address] [facility]ITALUSE [facility] LIPID PANEL, NON FASTING CHOLESTEROL IN HDL [MASS/VOLUM E] IN SERUM OR PLASMA 54 mg/dL 40 - 60 09/02 Specimen Type: SERUM No comment entered. Ordering Provider: LAURIE CHINCHILLA Report Released Date/Time: Aug 28, 2024 09:07 AM Reporting Lab: [facility] [address] [facility] [address] Performing Lab: [facility] [address] [address] [facility]ITALUSE [facility] TSH THYROTROPIN [UNITS/VOLU ME] IN SERUM OR PLASMA 1.43 u[IU]/ mL 0.35 - 5.00 09/02 Specimen Type: SERUM No comment entered. Ordering Provider: LAURIE CHINCHILLA Report Released Date/Time: Aug 28, 2024 09:07 AM Reporting Lab: [address] [address] Performing Lab: [facility]OSPITALRBEACON BEHAVIORAL HOSPITALN [address] [address] [facility] HEMOGLOBI N A1C PANEL HEMOGLOBIN A1C/HEMOGLO BIN.TOTAL [...] Aug 28, 2024 09:07 AM Reporting Lab: [address] [address] Performing Lab: [facility] [place] [facility] [address] [facility] [address] [facility] [place] [facility] CBC AND DIFF (AUTO) LEUKOCYTES [#/VOLUME] IN BLOOD BY AUTOMATED COUNT 8.50 10*3/u L 4.50 - 11.00 09/02 Specimen Type: BLOOD No comment entered. Ordering Provider: LAURIE CHINCHILLA Report Released Date/Time: Aug 28, 2024 09:07 AM Reporting Lab: [facility] [place] [facility] [address] [facility] [address] Performing Lab: [facility] [place] [facility] [address] [facility] [address] [facility] [place] [facility] CBC AND DIFF (AUTO) ERYTHROCYTE S [#/VOLUME] IN BLOOD BY AUTOMATED COUNT 3.92 10*6/u L 4.23 - 5.66 09/02 L Specimen Type: BLOOD No comment entered. Ordering Provider: LAURIE CHINCHILLA Report Released Date/Time: Aug 28, 2024 09:07 AM Reporting Lab: [facility] [place] [address] [address] Performing Lab: [facility] [place] [facility] [address] [facility] [address] [facility] [place] [facility] CBC AND DIFF (AUTO) HEMOGLOBIN [MASS/VOLUM E] IN BLOOD 12.9 g/dL 12.8 - 17 09/02 Specimen Type: BLOOD No comment entered. Ordering Provider: LAURIE CHINCHILLA Report Released Date/Time: Aug 28, 2024 09:07 AM Reporting Lab: [facility] [place] [address] [address] Performing Lab: [facility] [place] [address] [address] [facility] [place] [facility] CBC AND DIFF (AUTO) HEMATOCRIT [VOLUME FRACTION] OF BLOOD BY AUTOMATED COUNT 38.0 39.2 - 50.4 09/02 L Specimen Type: BLOOD No comment entered. Ordering Provider: LAURIE CHINCHILLA Report Released Date/Time: Aug 28, 2024 09:07 AM Reporting Lab: [facility] [place] [facility] [address] [facility] [address] Performing Lab: [facility] [place] [facility] [address] [facility] [address] [facility] [place] [facility] CBC AND DIFF (AUTO) MCV [ENTITIC VOLUME] BY AUTOMATED COUNT 96.9 fL 82 - 99 09/02 Specimen Type: BLOOD No comment entered. Ordering Provider: LAURIE CHINCHILLA Report Released Date/Time: Aug 28, 2024 09:07 AM Reporting Lab: [facility] [place] [facility] [address] [facility] [address] Performing Lab: [facility] [place] [facility] [address] [facility] [address] [facility] [place] [facility] CBC AND DIFF (AUTO) MCHC [MASS/VOLUM E] BY AUTOMATED COUNT 33.9 g/dL 30.8 - 35.1 09/02 Specimen Type: BLOOD No comment entered. Ordering Provider: LAURIE CHINCHILLA Report Released Date/Time: Aug 28, 2024 09:07 AM Reporting Lab: [facility] [place] [facility] [address] [facility] [address] Performing Lab: [facility] [place] [facility] [address] [facility] [address] [facility] [place] [facility] CBC AND DIFF (AUTO) PLATELETS [#/VOLUME] IN BLOOD BY AUTOMATED COUNT 259 10*3/u L 140 - 360 09/02 Specimen Type: BLOOD No comment entered. Ordering Provider: LAURIE CHINCHILLA Report Released Date/Time: Aug 28, 2024 09:07 AM Reporting Lab: [facility] [place] [facility] [address] [facility] [address] Performing Lab: [facility] [place] [facility] [address] [facility] [address] [facility] [place] [facility] CBC AND DIFF (AUTO) ERYTHROCYTE DISTRIBUTIO N WIDTH [RATIO] BY AUTOMATED COUNT 12.2 12.0 - 16.0 09/02 Specimen Type: BLOOD No comment entered. Ordering Provider: LAURIE CHINCHILLA Report Released Date/Time: Aug 28, 2024 09:07 AM Reporting Lab: [facility] [place] [address] [address] Performing Lab: [facility] [place] [place] [facility] [address] [facility] [address] [facility] WSN [facility] CBC AND DIFF (AUTO) MONOCYTES [#/VOLUME] IN BLOOD BY AUTOMATED COUNT 0.76 10*3/u L 0.30 - 1.10 09/02 Specimen Type: BLOOD No comment entered. Ordering Provider: LAURIE CHINCHILLA Report Released Date/Time: Aug 28, 2024 09:07 AM Reporting Lab: [facility] [place] [address] [address] Performing Lab: [facility] [place] [place] [address] [address] [facility]ITALRBE[facility]OSPITALN [facility] CBC AND DIFF (AUTO) MCH [ENTITIC MASS] BY AUTOMATED COUNT 32.9 pg 26.2 - 32.6 09/02 H Specimen Type: BLOOD No comment entered. Ordering Provider: LAURIE CHINCHILLA Report Released Date/Time: Aug 28, 2024 09:07 AM Reporting Lab: [facility] [place] [address] [address] Performing Lab: [facility] [place] [place] [address] [address] [facility]RL [facility]N [facility] CBC AND DIFF (AUTO) NEUTROPHILS /100 LEUKOCYTES IN BLOOD BY AUTOMATED COUNT 72.2 43.7 - 75.8 09/02 Specimen Type: BLOOD No comment entered. Ordering Provider: LAURIE CHINCHILLA Report Released Date/Time: Aug 28, 2024 09:07 AM Reporting Lab: [facility] [place] [address] [address] Performing Lab: [facility] [place] [facility] [address] [facility] [address] [facility] [place] [facility] CBC AND DIFF (AUTO) LYMPHOCYTES /100 LEUKOCYTES IN BLOOD BY AUTOMATED COUNT 14.6 14.0 - 42.3 09/02 Specimen Type: BLOOD No comment entered. Ordering Provider: LAURIE CHINCHILLA Report Released Date/Time: Aug 28, 2024 09:07 AM Reporting Lab: [facility] [place] [facility] [address] [facility] [address] Performing Lab: [facility] [place] [facility] [address] [facility] [address] [facility] [place] [facility] CBC AND DIFF (AUTO) MONOCYTES/1 00 LEUKOCYTES IN BLOOD BY AUTOMATED COUNT 8.9 5.1 - 13.7 09/02 Specimen Type: BLOOD No comment entered. Ordering Provider: LAURIE CHINCHILLA Report Released Date/Time: Aug 28, 2024 09:07 AM Reporting Lab: [facility] [place] [facility] [address] [facility] [address] Performing Lab: [facility] [place] [facility] [address] [facility] [address] [facility] [place] [facility] CBC AND DIFF (AUTO) EOSINOPHILS /100 LEUKOCYTES IN BLOOD BY AUTOMATED COUNT 3.5 0.4 - 6.8 09/02 Specimen Type: BLOOD No comment entered. Ordering Provider: LAURIE CHINCHILLA Report Released Date/Time: Aug 28, 2024 09:07 AM Reporting Lab: [facility] [place] [facility] [address] [facility] [address] Performing Lab: [facility] [place] [facility] [address] [facility] [address] [facility] [place] [facility] CBC AND DIFF (AUTO) BASOPHILS/1 00 LEUKOCYTES IN BLOOD BY AUTOMATED COUNT 0.6 0.1 - 2.0 09/02 Specimen Type: BLOOD No comment entered. Ordering Provider: LAURIE CHINCHILLA Report Released Date/Time: Aug 28, 2024 09:07 AM Reporting Lab: [facility] [address] [facility] [address] Performing Lab: [facility] [address] [facility] [address] [facility] CBC AND DIFF (AUTO) NEUTROPHILS [#/VOLUME] IN BLOOD BY AUTOMATED COUNT 6.13 10*3/u L 2.20 - 7.60 09/02 Specimen Type: BLOOD No comment entered. Ordering Provider: LAURIE CHINCHILLA Report Released Date/Time: Aug 28, 2024 09:07 AM Reporting Lab: [facility] [address] [facility] [address] Performing Lab: [facility] [address] [facility] [address] [facility] CBC AND DIFF (AUTO) LYMPHOCYTES [#/VOLUME] IN BLOOD BY AUTOMATED COUNT 1.24 10*3/u L 1.00 - 3.20 09/02 Specimen Type: BLOOD No comment entered. Ordering Provider: LAURIE CHINCHILLA Report Released Date/Time: Aug 28, 2024 09:07 AM Reporting Lab: [facility] [address] [facility] [address] Performing Lab: [facility] [address] [facility] [address] [facility] CBC AND DIFF (AUTO) EOSINOPHILS [#/VOLUME] IN BLOOD BY AUTOMATED COUNT 0.30 10*3/u L 0.03 - 0.44 09/02 Specimen Type: BLOOD No comment entered. Ordering Provider: LAURIE CHINCHILLA Report Released Date/Time: Aug 28, 2024 09:07 AM Reporting Lab: [facility] [address] [facility] [address] Performing Lab: [facility] [address] [facility] [address] [facility] CBC AND DIFF (AUTO) BASOPHILS [#/VOLUME] IN BLOOD BY AUTOMATED COUNT 0.05 10*3/u L 0.01 - 0.13 09/02 Specimen Type: BLOOD No comment entered. Ordering Provider: LAURIE CHINCHILLA Report Released Date/Time: Aug 28, 2024 09:07 AM Reporting Lab: [facility] [place] [facility] [address] [facility] [address] Performing Lab: [facility] [place] [facility] [address] [facility] [address] [facility] [place] [facility] CBC AND DIFF (AUTO) IMMATURE GRANULOCYTE S/100 LEUKOCYTES IN BLOOD BY AUTOMATED COUNT 0.2 0.0 - 0.7 09/02 Specimen Type: BLOOD No comment entered. Ordering Provider: LAURIE CHINCHILLA Report Released Date/Time: Aug 28, 2024 09:07 AM Reporting Lab: [facility] [place] [address] [address] Performing Lab: [facility] [place] [address] [address] [facility] [facility] CBC AND DIFF (AUTO) IMMATURE GRANULOCYTE S [#/VOLUME] IN BLOOD 0.02 10*3/u L 0.00 - 0.06 09/02 Specimen Type: BLOOD No comment entered. Ordering Provider: LAURIE CHINCHILLA Report Released Date/Time: Aug 28, 2024 09:07 AM Reporting Lab: [facility] [place] [address] [address] Performing Lab: [facility] [place] [address] [address] [facility] [place] [facility] CBC AND DIFF (AUTO) NRBC % 0.0 0.0 - 0.0 09/02 Specimen Type: BLOOD No comment entered. Ordering Provider: LAURIE CHINCHILLA Report Released Date/Time: Aug 28, 2024 09:07 AM Reporting Lab: [facility] [place] [address] [address] Performing Lab: [facility] [place] [facility] [address] [facility] [address] [facility] CBC AND DIFF (AUTO) NRBC, ABS 0.00 10*3/u L 0.00 - 0.00 09/02 Specimen Type: BLOOD No comment entered. Ordering Provider: LAURIE CHINCHILLA Report Released Date/Time: Aug 28, 2024 09:07 AM Reporting Lab: [facility] [place] [address] [facility] [address] Performing Lab: [facility] [place] [address] [facility] [address] [facility] CALCIUM CALCIUM [MASS/VOLUM E] IN SERUM OR PLASMA 10.0 mg/dL 8.5 - 10.2 09/02 Specimen Type: SERUM No comment entered. Ordering Provider: LAURIE CHINCHILLA Report Released Date/Time: Aug 28, 2024 09:07 AM Reporting Lab: [facility] [address] [facility] [address] Performing Lab: [facility] [place] [address] [facility] [address] [facility] [place] [facility] Vital Signs Combined list of inpatient and outpatient Vital Signs from Department of Defense and Veterans Affairs, ranging from 12 months to all on record, depending upon the facility. Vital Sign Value Date Comments Source SYSTOLIC BLOOD PRESSURE 130 06/26/2024 09:40:00 [facility] [place] [facility] DIASTOLIC BLOOD PRESSURE 74 06/26/2024 09:40:00 [facility] [place] [facility] PULSE 62 06/26/2024 09:40:00 [facility] [place] [facility] Encounters Combined list of: 1) Encounters from Department of Veterans Affairs facilities going backup to the last 18 months, not all VA inpatient encounters are included; 2) Encounters from the Department of Defense facilities going backup to 280 months. Location Location Details Encounter Type Encounter Number Reason For Visit Attending Provider ADM Date DC Date Status Disposition Source [facility] Out[facility] Encounter [id number] 11/28 [facility] [id number] 01/31 [facility] [id number] 02/06 [facility] [id number] 02/21 [facility] CLEAN/INSP ECT JOSE PART DENT [id number] Diagnos is: ICD-10- CM K03.6 Deposit s [accret ions] on teeth BELYSHEV,N ADEZHDA 02/24 [facility] En[facility] [id number] 03/05 [facility] OFFICE O/P EST MOD 30 MIN [id number] Diagnos is: ICD-10- CM M54.17 Radicul opathy, lumbosa cral [facility] LAURIE SUAREZ 03/24 [facility] En[facility] [id number] 05/01 [facility] OFF/OP EST MAY X REQ PHY/QHP [id number] Diagnos is: ICD-10- CM I10 Essenti al (primar y) hyperte nsion PICH,FLORESITA H 06/26 [facility] En[facility] [id number] [facility] [id number] 08/27 [facility] [id number] 1.09/01 [facility] En[facility] [id number] 1.09/01 [facility] CLEAN/INSP ECT JOSE PART DENT [id number] Diagnos is: ICD-10- CM K03.6 Deposit s [accret ions] on teeth BELYSHEV,N ADEZHDA 09/02 [facility] En[facility] [id number] 09/02 [facility] [id number] 10/03 [facility] En[facility] [id number] 04/23 [facility] Social History Combined list of available smoking, tobacco, and other social history from Department of Defense and Veterans Affairs facilities. Social History Type Response Date Comment [facility] e Tobacco smoking status MNIS VA-[facility]ACCO NEVER USED 03/24/2024 [facility] History of tobacco use VA-TOBACCO FORMER USER 03/29/2023 [facility] History [facility] tobacco use VA-TOBACCO FORMER USER 02/10/2022 [facility] History of tobacco use ME-TOBACCO QUIT 15 YRS OR MORE 01/14/2021 [facility]2018 [facility] History of tobacco use LIFETIME NON-TOBACCO USER 06/22/2017 [facility] Plan of Care List of future care activities from Department of [facility] Affairs facilities. Additional future care activities may be listed in the Assessment and Plan section. Date/Time Care Activity Care Activity Detail Facili ty 06/08/2025 AMBULATORY - MEDICINE AMBULATORY - MEDICI NE [facility]
[2025-05-12 12:38] VITALS: BP 118/60; PULSE 67; BMI 26.8
--- NOTE | 2025-05-12 12:38 | MHC.OFFVIS ---
Vital Signs 05/12/25 12:38 Height 5 ft 5 in Weight 160 lb 14.999 oz BMI 26.8 BP 118/60 Blood Pressure Location Lt brachial Position Sitting Pulse 67 Pulse Source Monitor Intake Visit Reasons: 1 yr followup w/ekg Allergies oxycodone (From PERCOCET) Allergy (Severe, Verified 04/23/25 09:07) headache/diaphoresis/nausea bee pollen (bee stings) Allergy (Intermediate, Verified 04/23/25 09:07) Hives Medication List - Last Reconciled 05/12/25 by Eliezer Armstrong MD aspirin (Adult Aspirin Regimen) 81 mg PO DAILY Held on 09/18/24. Instructions: Resume on 09/22/24. atorvastatin 80 mg PO DAILY ezetimibe 10 mg PO BEDTIME lisinopril-hydrochlorothiazide 10-12.5 mg 1 tab PO BID metoprolol succinate ER 50 mg PO BEDTIME naproxen 500 mg PO DAILY HPI Comments Details: Jason comes for follow-up. His main concern is discomfort in his both lower feet probably related to neuropathy. Also has tightening in his legs when he walks, predominantly on the right therapy underwent a recent diagnose sick angiogram which showed occluded popliteal artery and he had did not undergo intervention. He said he does not understand as to why. Denies any symptoms of chest pain. Takes all his medications. Denies any shortness of breath, orthopnea, PND. No prolonged palpitation irregular heartbeat. No lightheadedness, syncope. [facility] Medical History Bladder cancer Ascending aorta dilatation PONV (postoperative nausea and vomiting) Pulmonary emphysema Dyspnea on exertion COPD (chronic obstructive pulmonary disease) CAD (coronary artery disease) HTN (hypertension) Hyperlipidemia PAD (peripheral artery disease) Hypercholesteremia Surgical History Hx of bilateral cataract extraction Hx of cystoscopy History of back surgery H/O cardiac catheterization Stented coronary artery Hx of colonoscopy Hx of inguinal hernia repair Hx of appendectomy History of hip surgery History of femoral angiogram Family History Father CVD (cardiovascular disease) Mother Lung cancer Social History Household Members: Spouse Housing: House Are you a primary health care facilities inspector to a significant other at home: No Do you presently have visiting nurse or other home services: No Patient Tobacco Use Status: Former Tobacco user Tobacco use type: Cigarette Years Smoked: 25 Second Hand Smoke Exposure: No service: Yes Review of Systems Const Reports no additional complaints and Denies weakness Eyes Reports no additional complaints ENT Reports no additional complaints and Denies dizziness Card Denies chest pain, Denies chest pain with activity, Denies syncope, Denies rapid heart rate, Denies pedal edema, Denies edema, Denies leg edema, Denies lightheadedness, Denies palpitations, Denies dyspnea, Denies dyspnea on exertion and Denies orthopnea Resp Denies cough, Denies dyspnea and Denies dyspnea on exertion GI Denies hematochezia and Denies change in stool character Musc Denies abnormal gait, Denies muscle cramps, Denies muscle weakness, Denies numbness, Denies radiating pain into limb and Denies tingling Neuro Denies abnormal gait, Denies dizziness, Denies syncope, Denies numbness, Denies tingling and Denies weakness Endo Denies palpitations Physical Exam Vital Signs: Last Vital Signs Pulse 67 05/12/25 12:38 BP 118/60 05/12/25 12:38 BMI result Body Mass Index 26.8 Const General: cooperative, comfortable, no acute distress, alert and awake Nutritional Appearance: overweight Orientation/consciousness: patient oriented x3 Limitations: no limitations Neck Neck: Yes trachea midline, Yes supple and Yes no JVD Carotids: no bruits Resp Effort & Inspection: normal respiratory effort Auscultation: clear to auscultation bilaterally and diminished lung sounds Cardio Jugular venous distension: no JVD Palpation: normal PMI Rate: regular rate Rhythm: regular rhythm Heart sounds: S1 normal heart sound present and S2 normal heart sound present Skin General skin exam: other (Chronic sun damage) Neuro General: patient oriented x3 and no focal motor deficits Extrem General: Yes no clubbing, cyanosis or edema Psych Appearance: grossly normal Office Procedures EKG Details: EKG shows normal sinus rhythm with left axis deviation otherwise no significant abnormality [id number], Complete Assessment & Plan Assessment & Plan (1) CAD (coronary artery disease): Comment: follows w/Dr. Armstrong Code(s): I25.10 - Atherosclerotic heart disease of [place] coronary artery without angina pectoris Category: Medical Plan: Diffuse and significant atherosclerosis with prior stenting of the RCA. No recent symptoms of angina. Currently on low-dose aspirin therapy. Consider addition of low-dose oral anticoagulation therapy with Xarelto 2.5 mg b.i.d. to reduce limb as well as cardiovascular events. Currently on dual therapy with atorvastatin ezetimibe with well optimized LDL in the 40s. Continue aggressive blood pressure control. Encouraged to maintain activity level as tolerated. Advised to call me with any new symptoms. (2) HTN (hypertension): Code(s): I10 - Essential (primary) hypertension Category: Medical Plan: Hypertension which is currently well optimized. Advised to monitor blood pressure at home and maintain a log. Goal blood pressure less than 130/84. Low-salt diet was discussed with him. Encouraged to increase activity level as tolerated. Follow up in the clinic in 1 year's time, sooner p.r.n.. Thank you for allowing me to partake in his care Coding Level of Care Code Est Pt Level 4 (72543) Complex EM visit Add On G2211 Diagnoses CAD (coronary artery disease) I25.10 HTN (hypertension) I10 CPT Codes EKG - CPT: 65079-[id number], Complete ([id number])
--- OUTSIDE RECORDS SUMMARY | 2025-05-12 13:27 | XMS_ITS | Patient Health Record ---
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 Name Role Phone Trevon Colby Primary Care Provider [phone] Allergies Allergen (clinical drug ingredient) Drug/Non Drug Allergy documented on EMR Reaction Allergy Type Onset Date Status No Known Food Allergy Unknown Drug Allergy Active Bee Sting hives Allergy Active acetaminophen / [...] 0.2 - 1.3 BLD Negative Negative - XR lumbar spine 4V min Reviewed date:07/27/2024 05:58:52 AM Interpretation: Performing Lab: Notes/Report: [facility] [address] [place] [address] Drive [address] [place] [address] XRay Report Signed Patient: Spencer Price MR#: [id number] : 1945 Acct:[id number] Age/Sex: 78 / M ADM Date: 05/12/24 Loc: HO.HOSX Attending Dr: Vikram RUVALCABA Ordering Physician: Vikram Grant Date of Service: 05/12/24 Procedure(s): XR lumbar spine 4V min Accession Number(s): [id number] cc: Trevon Colby MD; Vikram Grant EXAMINATION: [...] in OV> 06/04/24 0711 DD/ 1534 TD/TT: Planner: [facility] [address] [place] [address] XRay Report Signed Patient: Spencer Price MR#: [id number] : 1945 Acct:[id number] Age/Sex: 78 / M ADM Date: 05/12/24 Loc: HO.HOSX Attending Dr: Vikram RUVALCABA Ordering Physician: Vikram Grant Date of Service: 05/12/24 Procedure(s): XR lum bar spine 4V min Accession Number(s): [id number] cc: Trevon Colby MD; Vikram Grant EXAMINATION: [...] in OV> 06/04/24 0711 DD/ 1534 TD/TT: Planner: MR lumbar spine wo con Reviewed date:07/27/2024 05:58:52 AM Interpretation: Performing Lab: Notes/Report: [address] [address] Magnetic Resonance Report Signed Patient: Spencer Price MR#: [id number] : 1945 Acct:[id number] Age/Sex: 78 / M ADM Date: 05/27/24 Loc: HO.MRI Attending Dr: Vikram RUVALCABA Ordering Physician: Vikram Grant Date of Service: 05/27/24 Procedure(s): MR lumbar spine wo con Accession Number(s): [id number] cc: Trevon Colby MD; Vikram Grant EXAMINATION: [...] in OV> 06/05/24 1505 DD/ 1510 TD/TT: Planner: [place] [address] Magnetic Resonance Report Signed Patient: Spencer Price MR#: [id number] : 1945 Acct:[id number] Age/Sex: 78 / M ADM Date: 05/27/24 Loc: HO.MRI Attending Dr: Vikram RUVALCABA Ordering Physician: Vikram Grant Date of Service: 05/27/24 Procedure(s): MR lum bar spine wo con Accession Number(s): [id number] cc: Trevon Colby MD; Vikram Grant EXAMINATION: MR LUMBAR SPINE WITH OUT CONTRAST CLINICAL INFORMATION: Low back pain, lumba r radiculopathy COMPARISON: MRI lumbar spine on 06/07/2023 TECHNIQUE: MRI of the lumbar sp ine was obtained using routine sequences without contrast. 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 The visualized [...] in OV> 06/05/24 1505 DD/ 1510 TD/TT: Planner: Complete Blood Count Auto Lyssa ff Reviewed date:07/27/2024 05:58:52 AM Interpretation: Performing Lab:[facility], [address] [place] [phone] Notes/Report: White Blood Count 5.0 4.8-10.8 X10*3/uL [...] NRBC Abs Auto 0.000 0.0-0.012 X10*3/uL Comprehensive [place]. Panel Fa st Reviewed date:07/27/2024 05:58:52 AM Interpretation: Performing Lab:[facility], [address] [place] [phone] Notes/Report: Sodium 137 135-145 mmol/L Potassium 4.8 3.3-5.1 mmol/L Chloride 106 96-108 mmol/L Carbon Dioxide 26 22-29 mmol/L Anion Gap 10 12-20 Blood Urea Nitrogen 32 9-16 mg/dL Creatinine 1.48 0.5-1.4 mg/dL Estimated Glomerular Filt Rate 46 NOTE: For -Surinamese individuals, multiply the result by 1.210. Chronic [...] Panel Reviewed date:07/27/2024 05:58:52 AM Interpretation: Performing Lab:[facility], [address] [place] [phone] Notes/Report: Triglycerides 60 <150 mg/dL Desirable Triglyceride: [...] Antigen Reviewed date:07/27/2024 05:58:52 AM Interpretation: Performing Lab:[facility], [address] [place] [phone] Notes/Report: Prostate Specific Antigen 2.80 <0.05-4.0 ng/mL PSA methodology: Chavez Alinity i Chemiluminescent Microparticle Immunoassay (CMIA) Type and Screen Reviewed date:09/07/2024 06:31:42 AM Interpretation: Performing Lab:[facility], [address] [place] [phone] Notes/Report: WITNESSED BY THEW NURSING: Call Blood Bank (ext. [phone]) to band patient on admission. Type and Screen in effect until 2300 on 09-17-2024 Spec expiration changed by SHOBHA on 09/03/24 Reason: PAT SPEC 09/17/24 Blood Type OP Antibody Screen NEGATIVE Glucose, Whole Blood Reviewed date:09/18/2024 09:17:25 AM Interpretation: Performing Lab:[facility], [address] [place] [phone] Notes/Report: Glucose, Whole Blood 178 60-115 mg/dL METER # : [id number] FL guidance in OR Reviewed date:09/23/2024 08:42:28 AM Interpretation: Performing Lab: Notes/Report: [address] [address] Fluoroscopy Report Signed Patient: Spencer Price MR#: [id number] : 1945 Acct:[id number] Age/Sex: 79 / M ADM Date: 09/17/24 Loc: HO.S3 344-[address]: Vikram RUVALCABA Ordering Physician: George Baltazar MD, PhD Date of Service: 09/17/24 Procedure(s): FL guidance in OR Accession Number(s): [id number] cc: Trevon Colby MD; George Baltazar MD, [...] Onofre MD 09/18/2024 12:40 PM [facility] Dictated By: Gillian Onofre MD Signed By: <Electronically signed by Gillian Onofre MD in OV> 09/18/24 1240 DD/ 0740 TD/TT: 09/17/24 1025 Planner: KAIDEN [address] [address] Fluoroscopy Report Signed Patient: Spencer Price MR#: [id number] : 1945 Acct:[id number] Age/Sex: 79 / M ADM Date: 09/17/24 Loc: HO.S3 344-[address]: Vikram RUVALCABA Ordering Physician: George Baltazar MD, PhD Date of Service: 09/17/24 Procedure(s): FL guidance in OR Accession Number(s): [id number] cc: Trevon Colby MD; George Baltazar MD, [...] Onofre MD 09/18/2024 12:40 PM [facility] Dictated By: Gillian Onofre MD Signed By: <Electronically signed by Gillian Onofre MD in OV> 09/18/24 1240 DD/ 0740 TD/TT: 09/17/24 1025 Planner: KAIDEN Complete Blood Count Auto Di ff Reviewed date:09/23/2024 08:42:28 AM Interpretation: Performing Lab:[facility], [address] [place] [phone] Notes/Report: White Blood Count 11.7 4.8-10.8 X10*3/uL [...] date:01/19/2025 08:16:21 PM Interpretation: Performing Lab: Notes/Report: [address] [address] Ultrasound Report Signed Patient: Spencer Price MR#: [id number] : 1945 Acct:[id number] Age/Sex: 79 / M ADM Date: 11/06/24 Loc: .US Attending Dr: Rusty Bear MD Ordering Physician: Rusty Bear MD Date of Service: 11/06/24 Procedure(s): US arterial duplex BI w/ NA Accession Number(s): [id number] cc: Trevon Colby MD; Rusty Bear MD [...] Stent from the proximal to mid SFA: [place] artery proximal to stent: 97 cm/s Proximal stent: 142 cm/s Mid stent: 119 cm/s Distal stent: 172 cm/s [place] artery distal to stent: 154 cm/s Superficial femoral artery (mid): 154 cm/s. Stent from mid to distal SFA: [place] artery proximal to stent: 145 cm/s Proximal stent: 136 cm/s Mid stent: 121 cm/s Distal stent: 146 cm/s [place] artery distal to stent: 94 cm/s Diastolic [...] Guaman MD 11/24/2024 12:37 PM [facility] Dictated By: Yair Guaman MD Signed By: <Electronically signed by Yair Guaman MD in OV> 11/24/24 1237 DD/ 1315 TD/TT: 11/06/24 1400 Planner: [place] [address] Ultrasound Report Signed Patient: Spencer Price MR#: [id number] : 1945 Acct:[id number] Age/Sex: 79 / M ADM Date: 11/06/24 Loc: HO.US Attending Dr: Rusty Bear MD Ordering Physician: Rusty Bear MD Date of Service: 11/06/24 Procedure(s): US arterial duplex BI w/ NA Accession Number(s): [id number] cc: Trevon Colby MD; Rusty Bear MD [...] from the proxi mal to mid SFA: [place] artery proxim al to stent: 97 cm/s Proximal stent: 142 cm/s Mid stent: 119 cm/s Distal stent: 172 cm/s [place] artery distal to stent: 154 cm/s Superficial femoral artery (mid): 154 cm/s. Stent from mid to distal SFA: [place] artery proxim al to stent: 145 cm/s Proximal stent: 136 cm/s Mid stent: 121 cm/s Distal stent: 146 cm/s [place] artery distal to stent: 94 cm/s Diastolic [...] Guaman MD 11/24/2024 12:37 PM [facility] Dictated By: Yair Guaman MD Signed By: <Electronically signed by Yair Guaman MD in OV> 11/24/24 1237 DD/ 1315 TD/TT: 11/06/24 1400 Planner: XR lumbar spine 4V min Reviewed date:01/19/2025 08:16:21 PM Interpretation: Performing Lab: Notes/Report: [facility] [address] [place] [address] Drive [address] [place] [address] XRay Report Signed Patient: Spencer Price MR#: [id number] : 1945 Acct:[id number] Age/Sex: 79 / M ADM Date: 11/17/24 Loc: MELVIN Attending Dr: Vikram RUVALCABA Ordering Physician: Vikram Grant Date of Service: 11/17/24 Procedure(s): XR lumbar spine 4V min Accession Number(s): [id number] cc: Trevon Colby MD; Vikram Grant . [...] Jiang MD 11/19/2024 01:05 PM [facility] Dictated By: Akshat Hooper MD Signed By: <Electronically signed by Akshat Jordan MD in OV> 11/19/24 1305 DD/ 0855 TD/TT: 11/17/24 0900 Planner: [facility] [address] [place] [address] XRay Report Signed Patient: Spencer Price MR#: [id number] : 1945 Acct:[id number] Age/Sex: 79 / M ADM Date: 11/17/24 Loc: HO.HOSX Attending Dr: Vikram RUVALCABA Ordering Physician: Vikram Grant Date of Service: 11/17/24 Procedure(s): XR lum bar spine 4V min Accession Number(s): [id number] cc: Trevon Colby MD; Vikram Grant . [...] 11/19/24 1305 DD/ 0855 TD/TT: 11/17/24 0900 Planner: MR lumbar spine wo/w con Reviewed date:01/19/2025 08:16:21 PM Interpretation: Performing Lab: Notes/Report: [address] [address] Magnetic Resonance Report Signed Patient: Spencer Price MR#: [id number] : 1945 Acct:[id number] Age/Sex: 79 / M ADM Date: 11/19/24 Loc: HO.MRI Attending Dr: Vikram RUVALCABA Ordering Physician: Vikram Grant Date of Service: 11/19/24 Procedure(s): MR lumbar spine wo/w con Accession Number(s): [id number] cc: Trevno Colby MD; Vikram Grant EXAMINATION: MR LUMBAR [...] 11/24/24 0953 DD/ 1220 TD/TT: 11/19/24 1312 Planner: [address] [address] Magnetic Resonance Report Signed Patient: Spencer Price MR#: [id number] : 1945 Acct:[id number] Age/Sex: 79 / M ADM Date: 11/19/24 Loc: HO.MRI Attending Dr: Vikram RUVALCABA Ordering Physician: Vikram Grant Date of Service: 11/19/24 Procedure(s): MR lum bar spine wo/w con Accession Number(s): [id number] cc: Trevon Colby MD; Vikram Grant EXAMINATION: [...] Jiang MD 11/24/2024 09:53 AM [facility] Dictated By: Akshat Rivas MD Signed By: <Electronically signed by Akshat Jordan MD in OV> 11/24/24 0953 DD/ 1220 TD/TT: 11/19/24 1312 Planner: Complete Blood Count Auto Di ff Reviewed date:02/04/2025 08:51:44 AM Interpretation: Performing Lab:[facility], [address] [place] [phone] Notes/Report: White Blood Count 5.0 4.8-10.8 X10*3/uL [...] NRBC Abs Auto 0.000 0.0-0.012 X10*3/uL Comprehensive [place]. Panel Fa st Reviewed date:02/04/2025 08:51:44 AM Interpretation: Performing Lab:[facility], [address] [place] [phone] Notes/Report: Sodium 137 135-145 mmol/L Potassium 4.6 [...] Panel Reviewed date:02/04/2025 08:51:45 AM Interpretation: Performing Lab:[facility], [address] [place] [phone] Notes/Report: Triglycerides 56 <150 mg/dL Desirable Triglyceride: [...] Antigen Reviewed date:02/04/2025 08:51:45 AM Interpretation: Performing Lab:[facility], [address] [place] [phone] Notes/Report: Prostate Specific Antigen 2.83 <0.05-4.0 ng/mL PSA methodology: Chavez Alinity i Chemiluminescent Microparticle Immunoassay (CMIA) Blood Urea Nitrogen Reviewed date:05/07/2025 04:33:18 AM Interpretation: Performing Lab:[facility], [address] [place] [phone] Notes/Report: Blood Urea Nitrogen 32 9-16 mg/dL Creatinine Reviewed date:05/07/2025 04:33:18 AM Interpretation: Performing Lab:[address] [phone] Notes/Report: Creatinine 1.50 0.5-1.4 mg/dL Estimated Glomerular Filt Rate 45 Chronic Kidney Disease: Estimated GFR < 60 mL/min/1.73m2 Severe Kidney Disease: Estimated GFR < 15 mL/min/1.73m2 CT angio abd aorta runoff Reviewed date:05/07/2025 04:33:18 AM Interpretation: Performing Lab: Notes/Report: [address] [address] [address] Scan Report Signed Patient: Spencer Price MR#: [id number] : 1945 Acct:[id number] Age/Sex: 79 / M ADM Date: 04/16/25 Loc: HO.CT Attending Dr: Rusty Bear MD Ordering Physician: Rusty Bear MD Date of Service: 04/16/25 Procedure(s): CT angio abd aorta runoff Accession Number(s): [id number] cc: Trevon Colby MD; Rusty Bear MD Report Number: [id number]: Total DLP = 787.00 mGy-cm CLINICAL HISTORY: I73.9 - Peripheral vascular disease, unspecified CT angiography abdomen and pelvis with bilateral lower extremity runoff using IV contrast. 3-D post processing. Comparison: None Findings: Vascular: The aorta demonstrates severe soft and calcified atherosclerotic disease without dissection or aneurysm. Renal arteries exhibit moderate atherosclerotic disease without significant stenosis. The celiac artery and superior mesenteric artery are widely patent. The inferior mesenteric artery is also patent. Right lower extremity: Severe atherosclerotic disease with mild and moderate tandem stenosis involving the common, internal and external iliac arteries. The right common femoral artery is widely patent. The profunda femoral artery demonstrates severe atherosclerotic disease with moderate stenosis proximally. The superficial femoral artery demonstrates severe atherosclerotic disease and moderate and moderately severe stenosis. The right SFA stents appear patent. Severe atherosclerotic disease of the popliteal artery. There is somewhat attenuated but patent three-vessel runoff to the right foot. Left lower extremity Severe atherosclerotic disease of the common, internal and external iliac arteries, with mild and moderate tandem stenosis. The left common femoral artery is patent. The profunda femoral artery is widely patent. Severe atherosclerotic disease of the superficial femoral artery with tandem severe stenosis. The popliteal artery demonstrates moderately severe stenosis. Despite this, there is attenuated three-vessel runoff to the left foot. Nonvascular: Lung bases demonstrate mild chronic changes. The liver, gallbladder, spleen, adrenal glands and pancreas are unremarkable. Kidneys demonstrate no suspicious lesion or obstructive uropathy. Bladder is decompressed. The prostate gland is enlarged. Extensive diverticulosis without evidence of diverticulitis. No acute osseous finding. Impression: Moderately severe atherosclerotic disease with mixed inflow and outflow disease as detailed. Despite this there is attenuated three-vessel runoff to both feet. Several incidental findings. This document has been electronically signed by: Govind Razo MD on 04/17/2025 08:49:16 Dictated By: Govind Razo MD Signed By: <Electronically signed by Govind Razo MD in OV> 04/17/2549 DD/ 8 TD/TT: 04/17/25848 Planner: [place] [address] CT Scan Report Signed Patient: Spencer Price MR#: [id number] : 1945 Acct:[id number] Age/Sex: 79 / M ADM Date: 04/16/25 Loc: HO.CT Attending Dr: Rusty Bear MD Ordering Physician: Rusty Bear MD Date of Service: 04/16/25 Procedure(s): CT ang io abd aorta runoff Accession Number(s): [id number] cc: Trevon Colby MD; Rusty Bear MD Report Number: [id number]: Total DLP = 787.00 mGy-cm CLINICAL HISTORY: I7 3.9 - Peripheral vascular disease, unspecified CT angiography abdom en and pelvis with bilateral lower extremity runoff using IV contrast. 3 -D post processing. Comparison: None Findings: Vascular: The aorta demonstrat es severe soft and calcified atherosclerotic disease without dissection o r aneurysm. Renal arteries exhib it moderate atherosclerotic disease without significant stenosis. The celiac artery an d superior mesenteric artery are widely patent. The inferior mesente vinay artery is also patent. Right lower extremity: Severe atherosclerot ic disease with mild and moderate tandem stenosis involving the common , internal and external iliac arteries. The right common femoral artery is widely patent. The profunda femoral artery demonstrates severe atherosclerotic disease with moderate stenos is proximally. The superficial femo ral artery demonstrates severe atherosclerotic disease and moderate and moderately severe stenosis. The right SFA stents appear patent. Severe atherosclerot ic disease of the popliteal artery. There is somewhat attenuated but patent three-vessel runoff to the right foot. Left lower extremity Severe atherosclerot ic disease of the common, internal and external iliac arteries, with mild and moderate tandem stenosis. The left common femo ral artery is patent. The profunda femoral artery is widely patent. Severe atherosclerot ic disease of the superficial femoral artery with tandem severe stenosis. The popliteal artery demonstrates moderately severe stenosis. Despite this, there is attenuated three-vessel runoff to the left foot. Nonvascular: Lung bases demonstra te mild chronic changes. The liver, gallbladd er, spleen, adrenal glands and pancreas are unremarkable. Kidneys demonstrate no suspicious lesion or obstructive uropathy. Bladder is decompressed. The prostate gland is enlarged. Extensive diverticulosis without evidence of diverticulitis. No acute osseous finding. Impression: Moderately severe atherosclerotic disease with mixed inflow and outflow disease as detailed. Despite this there is attenuated three-vessel runoff to both feet. Several incidental findings. This document has be en electronically signed by: Govind Razo MD on 04/17/2025 08:49:16 Dictated By: Govind Razo MD Signed By: <Electronically signed by Govind Razo MD in OV> 04/17/25 0849 DD/ TD/TT: 04/17/2549 Planner: Complete Blood Count Auto Di ff Reviewed date:05/07/2025 04:33:18 AM Interpretation: Performing Lab:[facility], [address] [place] [phone] Notes/Report: White Blood Count 4.7 4.8-10.8 X10*3/uL Red Blood Count 3.68 4.60-5.80 X10*6/uL Hemoglobin 12.2 14.0-18.0 g/dl Hematocrit 36.7 42.0-52.0 % Mean Corpuscular Volume 99.7 80.0-98.0 fL Mean Corpuscular Hemoglobin 33.2 27.0-33.0 pg Mean Corpuscular HGB Conc 33.2 31.0-36.0 g/dl Red Cell Distribution Width 12.9 11.0-16.0 % Platelet Count 231 160-400 X10*3/uL Mean Platelet Volume 9.6 9.4-12.4 fL Neutrophils Percent Auto 54.1 45-73 % Imm Gran Pct Auto 0.2 0.0-0.4 % Lymphocytes Percent Auto 25.5 20-40 % Monocytes Percent Auto 12.3 2-11 % Eosinophils Percent Auto 6.6 0-4 % Basophils Percent Auto 1.3 0-2 % NRBC Pct Auto 0.0 0.0-0.2 /100WBC Neutrophils Absolute Auto 2.6 2.0-8.3 x10*3/u L Imm Gran Abs Auto 0.01 0.00-0.03 X10*3/uL Lymphocytes Absolute Auto 1.2 1.2-4.9 X10*3/u L Monocytes Absolute Auto 0.6 0.1-1.2 X10*3/uL Eosinophils Absolute Auto 0.3 0.0-0.4 X10*3/u L Basophils Absolute Auto 0.1 0.0-0.2 X10*3/uL NRBC Abs Auto 0.000 0.0-0.012 X10*3/uL Comprehensive [place]. Panel Fa st Reviewed date:05/07/2025 04:33:18 AM Interpretation: Performing Lab:[facility], [address] [place] [phone] Notes/Report: Sodium 140 135-145 mmol/L Potassium 5.1 3.3-5.1 mmol/L Chloride 111 96-108 mmol/L Carbon Dioxide 26 22-29 mmol/L Anion Gap 8 12-20 Blood Urea Nitrogen 31 9-16 mg/dL Creatinine 1.47 0.5-1.4 mg/dL Estimated Glomerular Filt Rate 46 Chronic Kidney Disease: Estimated GFR < 60 mL/min/1.73m2 Severe Kidney Disease: Estimated GFR < 15 mL/min/1.73m2 Glucose Fasting 91 60-99 mg/dL Calcium 9.5 8.4-10.2 mg/dL Bilirubin Total 0.7 0.0-1.0 mg/dL Aspartate Amino Transferase 28 5-37 U/L Alanine Aminotransferase 16 0-40 U/L Total Protein 6.5 6.5-8.0 g/dL Albumin Level 3.9 3.5-5.0 g/dL Alkaline Phosphatase 93 39-117 U/L Lipid Panel Reviewed date:05/07/2025 04:33:18 AM Interpretation: Performing Lab:[facility], [address] [place] [phone] Notes/Report: Triglycerides 46 <150 mg/dL Desirable Triglyceride: less than 150 mg/dL Borderline High Triglyceride 150-199 mg/dL High Triglyceride: 200-499 mg/dL Very High Triglyceride: greater than or equal to 5OO mg/dL Cholesterol 104 <200 mg/dL Desirable Cholesterol: less than 200 mg/dL Borderline High Cholesterol: 200-239 mg/dL High Cholesterol: greater than 239 mg/dL LDL Cholesterol Calculated 46 <100 mg/dL Desirable LDL: less than 100 mg/dL Near Optimal/Above Optimal LDL: 110-129 mg/dL Borderline High LDL: 130-159 mg/dL High LDL: 160-189 mg/dL Very High LDL: greater than or equal to 190 mg/dL HDL Cholesterol 49 >40 mg/dL Desirable HDL: greater than 40 mg/dL Note: This HDL assay may give artificially low results in patients with liver disease. Complete Blood Count Auto Di ff Reviewed date:05/07/2025 04:33:18 AM Interpretation: Performing Lab:[facility], [address] [place] [phone] Notes/Report: White Blood Count 5.2 4.8-10.8 X10*3/uL Red Blood Count 3.66 4.60-5.80 X10*6/uL Hemoglobin 12.3 14.0-18.0 g/dl Hematocrit 36.2 42.0-52.0 % Mean Corpuscular Volume 98.9 80.0-98.0 fL Mean Corpuscular Hemoglobin 33.6 27.0-33.0 pg Mean Corpuscular HGB Conc 34.0 31.0-36.0 g/dl Red Cell Distribution Width 13.0 11.0-16.0 % Platelet Count 221 160-400 X10*3/uL Mean Platelet Volume 9.4 9.4-12.4 fL Neutrophils Percent Auto 54.4 45-73 % Imm Gran Pct Auto 0.2 0.0-0.4 % Lymphocytes Percent Auto 26.6 20-40 % Monocytes Percent Auto 11.4 2-11 % Eosinophils Percent Auto 6.4 0-4 % Basophils Percent Auto 1.0 0-2 % NRBC Pct Auto 0.0 0.0-0.2 /100WBC Neutrophils Absolute Auto 2.8 2.0-8.3 x10*3/u L Imm Gran Abs Auto 0.01 0.00-0.03 X10*3/uL Lymphocytes Absolute Auto 1.4 1.2-4.9 X10*3/u L Monocytes Absolute Auto 0.6 0.1-1.2 X10*3/uL Eosinophils Absolute Auto 0.3 0.0-0.4 X10*3/u L Basophils Absolute Auto 0.1 0.0-0.2 X10*3/uL NRBC Abs Auto 0.000 0.0-0.012 X10*3/uL Blood Urea Nitrogen Reviewed date:05/07/2025 04:33:18 AM Interpretation: Performing Lab:[facility], [address] [place] [phone] Notes/Report: Blood Urea Nitrogen 46 9-16 mg/dL Creatinine Reviewed date:05/07/2025 04:33:18 AM Interpretation: Performing Lab:[address] [phone] Notes/Report: Creatinine 1.66 0.5-1.4 mg/dL Creatinine Clr Calc Pharmacy 32.9 eGFR (calculated from the MDRD study equation) and eCrCl (calculated from the Cockcroft-Gault equation) are based on different parameters and may not yield comparable results. If eCrCl result is absurd, please check patient's height/weight. Estimated Glomerular Filt Rate 40 Chronic Kidney Disease: Estimated GFR < 60 mL/min/1.73m2 Severe Kidney Disease: Estimated GFR < 15 mL/min/1.73m2 Reason For Referral No Information Medications Medication SIG (Take, Route, Frequency, Duration) Notes Start Date End Date Status Amoxicillin 500 MG 4 capsules Orally on [...] r milk Orally every 12 hrs Active Eucerin Active Immunizations Vaccine Route Administration Date Status Comme nts Influenza IM Intramuscular 08/30/2015 Administered Influenza IM Intramuscular 08/16/2016 Administered Influenza no Preserv 3 and > IM Intramuscular 08/23/2017 Administered Influenza no Preserv 3 and > Unknown 08/13/2019 Administered Influenza, quad Unknown 09/20/2021 Administered Tdap Unknown 01/16/2020 Administered PCV13 Unknown 06/22/2017 Administered COVID- 19 Vaccine Unknown 12/24/2020 Administered Zostavax Unknown 06/22/2017 Administered PPV 23 Unknown 04/30/2020 Administered COVID Pfizer Bivalent Unknown 08/04/2022 Administered COVID 19 Moderna Unknown 09/09/2021 Administered COVID 19 Moderna Unknown 11/26/2020 Administered COVID-19 Moderna SPIKEVAX Unknown 08/23/2023 Administer ed SHINGRIX Unknown 04/30/2020 Administered Fluzone High-Dose (HD-IIV3) Unknown 07/22/2018 Administered Comirnaty Pfizer COVID-19 12+ Unknown 08/20/2024 Administered Flu-IIv4pf Unknown 07/30/2020 Administered Fluzone High-Dose (HD-IIV3) Unknown 08/20/2024 Administered Fluzone High-Dose (HD-IIV3) Unknown 08/13/2019 Administered Influenza High Dose Quadrivalent Unknown 07/27/2021 Administered SHINGRIX Unknown 01/16/2020 Administered COVID-19 Moderna SPIKEVAX Unknown 08/23/2023 Administer [...] Never (0 point) Points 1 Interpretation Negative Problems Problem Type SNOMED Code ICD Code Onset Dates Problem Status W/U Status Risk Notes Problem 0032197 Former smoker (Z87.891) Active confirmed He is highly motivated not to smoke and we discussed means of preserving abstinence in times of stress. Problem 66071811 Hyperlipidemia (E78.5) Active confirmed His total cholesterol level is 104. His lipids are in near target range. No change in his medications was made. His lipids were reviewed. He will have fasting lipid profile in the near future. Problem 582632520 Overweight (E66.3) Active confirmed His body mass index is 26. He [...] healthy weight maintenance diet low in cholesterol. Problem 000510511 Tubular adenoma (D36.9) Active confirmed He will continue to undergo colonoscopies every 5 years. Problem 27876273 Carpal tunnel syndrome, right upper limb (G56.01) Active confirmed He has seen the orthopedic surgeon and will undergo surgery for carpal tunnel syndrome on the right later this month. He is cleared for surgery at this time. Problem 68967057 Coronary artery disease (I25.10) Active confirmed He has had no recent palpitations, angina, syncope or nausea. He has been compliant with all of his medications. He saw his pattern worker this month who found him to be stable and gave him an appointment to return in one year. Problem 789429485 BPH (benign prostatic hyperplasia) (N40.0) Active confirmed He arises from sleep once or twice a night to urinate. We have discussed lifestyle modifications he could make to reduce nocturia. Problem 775163055 Peripheral vascular disease (I73.9) Active confirmed He [...] and was thought to be stable. Problem 252218972 Degenerative joint disease (DJD) of lumbar spine (M47.816) Active confirmed A recent MRI shows spinal stenosis and foraminal impingement. He has an upcoming appointment with a neurosurgeon at the end of this month. Problem 869621634 Erectile dysfunction (N52.9) Active confirmed This is well compensated with medications. Problem 884701401 Osteoarthritis of right hip (M16.11) Active confirmed . He describes a hip pain as mild today. Problem 04341722 Spinal stenosis, lumbar (M48.06) Active confirmed The lumbar fusiontook place without side effects or incidents. He notices a substantial improvement in his back pain. The wound is well-healed. He reports much less pain with ambulation. 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 The discomfort has resolved. Problem Emphysema lung (J43.9) Active confirmed He is no longer smoking. He is short of breath with sustained exertion but is comfortable breathing room air at rest. Problem 084599178 History of bladder cancer (Z85.51) Active confirmed There was no sign of cancer on his exam today. He recently had a cystoscopy, March 2024 which showed no gross recurrence. Surveillance will continue Problem 360352231 Stage 2 chronic kidney disease (N18.2) Active confirmed His GFR has improved substantially since his last blood test. His urinary tract is currently asymptomatic.H is glomerular filtration rate has fallen from 54 down to 46. I have encouraged him to stay hydrated. Problem 1314016936612 Recurrent epistaxis (R04.0) Active confirmed He will continue the use of aspirin. He was instructed on techniques to stop bleeding. He was instructed to go to the emergency room if bleeding does not stop. If this continues he will see ENT for definitive treatment. 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 This is likely entire operative. We have discusssed the healing of nerve tissue ttoday. Vital Signs Heart Rate 58 /min 05/05/2025 Temperature 97.3 degrees Fahrenheit 05/05/2025 Blood pressure diastolic 64 mm Hg 05/05/2025 Height 66 in 05/05/2025 Blood pressure systolic 107 mm Hg 05/05/2025 Weight 163 lbs 05/05/2025 BMI 26.31 kg/m2 05/05/2025 Encounters Encounter Location Date Provider Diagnosis Trevon Colby III, MD [address] [place] [address] [address] [place], [place] [address] 08/01/2024 Trevon Colby Hyperlipidemia E78.5 ; Osteoarthritis of right hip M16.11 ; Overweight E66.3 ; Spinal stenosis, lumbar M48.06 ; Carpal tunnel syndrome, right upper limb G56.01 ; Peripheral vascular disease I73.9 ; History of bladder cancer Z85.51 and Stage 2 chronic kidney disease N18.2 Trevon Colby III, MD [address] [place] [address] [place] [address] 10/13/2024 Trevon Colby Hyperlipidemia E78.5 ; Spinal stenosis, lumbar M48.06 ; Overweight E66.3 ; BPH (benign prostatic hyperplasia) N40.0 ; Former smoker Z87.891 ; History of bladder cancer Z85.51 ; Peripheral vascular disease I73.9 ; Osteoarthritis of right hip M16.11 ; Coronary artery disease I25.10 ; Stage 2 chronic kidney disease N18.2 and Emphysema lung J43.9 Trevon Colby III, MD [address] [place] [address] [place] [address] 02/11/2025 Trevon Colby Injury of left peron eal nerve, sequela S84.12XS ; Hyperlipidemia E78.5 ; Stage 2 chronic kidney disease N18.2 ; Osteoarthritis of right hip M16.11 ; Overweight E66.3 ; Spinal stenosis, lumbar M48.06 ; BPH (benign prostatic hyperplasia) N40.0 ; Former smoker Z87.891 and Peripheral vascular disease I73.9 Trevon Colby III, MD [address] [place] [address] [place] [address] 04/13/2025 Trevon Colby Hyperlipidemia E78.5 ; Recurrent epistaxis R04.0 ; Osteoarthritis of right hip M16.11 ; Spinal stenosis, lumbar M48.06 ; Former smoker Z87.891 and Peripheral vascular disease I73.9 Trevon Colby III, MD [address] [place] [address] [place] [address] 05/05/2025 Trevon Colby Hyperlipidemia E78.5 ; Peripheral [...] Former smoker Z87.891 and Emphysema lung J43.9 Trevon Colby III, MD [address] [place] [address] [address] [place], [place] [address] 11/28/2024 Trevon Colby Hyperlipidemia E78.5 Trevon Colby III, MD [address] [place] [address] [place] [address] 12/12/2024 Trevon Colby Hyperlipidemia E78.5 Trevon Colby III, MD [address] [place] [address] [place] [address] 01/19/2025 Trevon Colby III, MD [address] [place] [address] [place] [address] 01/20/2025 Trevon Colby III, MD [address] [place] [address] [place] [address] 05/07/2025 Trevon Colby Assessments Encounter Date Diagnosis (ICD [...] discusssed the healing of nerve tissue ttoday. 04/13/2025 Hyperlipidemia (ICD-10 - E78.5) His total [...] he will see ENT for definitive treatment. 05/05/2025 Hyperlipidemia (ICD-10 - E78.5) His total [...] 2024 and was thought to be stable. 11/28/2024 Hyperlipidemia (ICD-10 - E78.5) His total [...] lipid profile in the near future. 08/01/2024 Overweight (ICD-10 - E66.3) His body [...] test. His urinary tract is currently asymptomatic. 04/13/2025 Osteoarthritis of right hip (ICD-10 - M16.11) . He describes a hip pain as mild today. 05/05/2025 Overweight (ICD-10 - E66.3) His body [...] healthy weight maintenance diet low in cholesterol. 08/01/2024 Spinal stenosis, lumbar (ICD-10 - M48.06) [...] reports much less pain with ambulation. 05/05/2025 Osteoarthritis of right hip (ICD-10 - M16.11) . He describes a hip pain as mild today. 08/01/2024 Carpal tunnel syndrome, right upper limb [...] his weight loss strategy and discussed this. 04/13/2025 Former smoker (ICD-1 0 - Z87.891) He is highly motivated not to smoke and we discussed means of preserving abstinence in times of stress. 05/05/2025 Spinal stenosis, lumbar (ICD-10 - M48.06) The lumbar fusiontook place without side effects or incidents. He notices a substantial improvement in his back pain. The wound is well-healed. He reports much less pain with ambulation. 08/01/2024 Peripheral vascular disease (ICD-10 - I73.9) [...] reports much less pain with ambulation. 04/13/2025 Peripheral vascular disease (ICD-10 - I73.9) [...] and was thought to be stable. 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 He has an upcoming appointment with a neurosurgeon at the end of this month. 08/01/2024 History of bladder cancer (ICD-10 - [...] modifications he could make to reduce nocturia. 05/05/2025 Carpal tunnel syndrome, right upper limb (ICD-10 - G56.01) He has seen the orthopedic surgeon and will undergo surgery for carpal tunnel syndrome on the right later this month. He is cleared for surgery at this time. 08/01/2024 Stage 2 chronic kidney disease (ICD-10 [...] preserving abstinence in times of stress. 05/05/2025 History of bladder cancer (ICD-10 - Z85.51) There was no sign of cancer on his exam today. He recently had a cystoscopy, March 2024 which showed no gross recurrence. Surveillance will continue 10/13/2024 Coronary artery disease (ICD-10 - I25.10) He has had no recent palpitations, angina, syncope or nausea. He has been compliant with all of his medications. He saw his pattern worker this month who found him to be [...] and was thought to be stable. 05/05/2025 Coronary artery disease (ICD-10 - I25.10) He has had no recent palpitations, angina, syncope or nausea. He has been compliant with all of his medications. He saw his pattern worker this month who found him to be [...] continues to deteriorate he will see nephrology. 05/05/2025 Stage 2 chronic kidney disease (ICD-10 - N18.2) His GFR has improved substantially since his last blood test. His urinary tract is currently asymptomatic.His glomerular filtration rate has fallen from 54 down to 46. I have encouraged him to stay hydrated. 10/13/2024 Emphysema lung (ICD-10 - J43.9) He is no longer smoking. He is short of breath with sustained exertion but is comfortable breathing room air at rest. 05/05/2025 Former smoker (ICD-1 0 - Z87.891) [...] C) 06/03/2018 PROFILE, FASTING (COMPREHENSIVE METABOLI C) 05/05/2025 PROFILE, FASTING (COMPREHENSIVE METABOLI C) 01/12/2020 PROFILE, FASTING (COMPREHENSIVE METABOLI C) 08/25/2020 PROFILE, FASTING (COMPREHENSIVE METABOLI C) 02/28/2024 PROFILE, FASTING (COMPREHENSIVE METABOLI C) 03/04/2018 PROFILE, FASTING (COMPREHENSIVE METABOLI C) 07/25/2021 PROFILE, FASTING (COMPREHENSIVE METABOLI C) 04/22/2019 PROFILE, [...] PANEL 01/12/2020 LIPID PANEL 08/25/2020 LIPID PANEL 03/04/2018 LIPID PANEL 07/25/2021 LIPID PANEL 04/22/2019 LIPID PANEL 04/22/2021 LIPID PANEL 05/20/2020 PSA, TOTAL 10/13/2024 PSA, TOTAL 06/26/2023 PSA, TOTAL 10/26/2021 PSA, TOTAL 05/01/2024 PSA, TOTAL 06/03/2018 PSA, TOTAL 02/28/2024 PSA, TOTAL 08/25/2020 PSA, TOTAL 03/04/2018 PSA, TOTAL 04/22/2019 PSA, TOTAL 04/22/2021 CBC w DIFF 05/20/2020 CBC w DIFF 04/22/2021 CBC w DIFF 12/23/2018 CBC w DIFF 05/05/2025 CBC w DIFF 06/26/2023 CBC w DIFF 11/25/2020 CBC w DIFF 10/26/2021 CBC w DIFF 01/12/2020 CBC w DIFF 06/03/2018 CBC w DIFF 07/25/2021 CBC w DIFF 02/28/2024 CBC w DIFF 02/11/2025 CBC w DIFF 08/25/2020 CBC w DIFF 03/04/2018 CBC w DIFF 04/22/2019 Echocardiogram 01/31/2023 PFT with DLCO 02/01/2023 CBC WITH AUTO DIFF 10/13/2024 CBC WITH AUTO DIFF 05/01/2024 CBC WITH AUTO DIFF 11/29/2023 Lipid Panel 11/29/2023 Lipid Panel 10/13/2024 Lipid Panel 05/05/2025 Lipid Panel 05/01/2024 Lipid Panel 02/28/2024 Lipid Panel 02/11/2025 ECG 12 lead EKG 08/23/2023 Next Appt Details Provider Name:Trevon Colby, 08/06/2025 09:45:00 AM, [address] [place] [address] [address], [place], [address], Provider Name:Trevon Colby, 05/06/2026 09:30:00 AM, [address] [place] [address] [address], [place], [address], Insurance Providers Payer Name Payer Address Payer Phone Subscriber Number Group Number Insured Name Patient Relationship to Insured Coverage Start Date Coverage End Date [facility] [address] [facility] [address] [place] [phone] [id number] Spencer Price Self - patient is the insured MEDICARE NGS [address] [place] [address] [id number] Spencer Price Self - patient is the [...] 17 Surgical History Surgery Date(Month/Year) L3-L5 fusion [facility] 09/18/2024 Left femoral endarterectomy, right superficial Femoral artery atherectomy and angioplasty 06/2018 Right popliteal and peroneal artery athe rectomy and angioplasty 12/2017 Angioplasty right peroneal and popliteal artery 04/13/2021 Lumbar L3-5 Laminectomy, par tial facetectomy, foraminotomy, [facility], Dr Baltazar 10/25/[address] Bear 04/2021 carpal tunnel right hand 10/2019 carpal tunnel surgery right hand, Instru m 04/2018 right common femoral artery angioplasty 2015 left iliofemoral endarterectomy 2015 cardiac catheterization with stent insertion, inferior wall ischemia, 99% right coronary artery stenosis 2015 colonoscopy, negative 2011 colonoscopy, negative 2006 colonoscopy, tubular adenoma 2003 Cataract surgery both eyes 2010 Hip replacement right appendectomy herniorrhaphy Hospitalization History Reason Date(Month/Year) Back surgery on september 1709/2024
== END 2025-05-12 13:13 | disposition home or self-care (01) ==
LOC: HO.HCS 12:36
PROVIDERS: PCP Internal Medicine Medical Oncology; Visit Provider Internal Medicine Cardiovascular Disease
DX: I25.10 Atherosclerotic heart disease of native coronary artery without angina pectoris (principal); I10 Essential (primary) hypertension
CPT/HCPCS: 93010; 99214; G2211

== ENCOUNTER → 2025-05-12 12:36 | Outpatient (BNVA) | payer MEDICARE, SELFPAY | PROVIDERS: PCP Internal Medicine Medical Oncology; Visit Provider Internal Medicine Cardiovascular Disease | DX: I25.10 Atherosclerotic heart disease of native coronary artery without angina pectoris (principal); I10 Essential (primary) hypertension | CPT/HCPCS: 93005; 99212 ==

== ENCOUNTER 2025-05-21 08:43 | Outpatient (AMB) | payer MEDICARE, SELFPAY ==
--- OUTSIDE RECORDS SUMMARY | 2025-04-29 04:25 | XMS_ITS | Continuity of Care Document ---
Author Name [facility] Organization [facility] Care Team Providers Care Tip Printer Name Role Phone [facility] Unavailable Unavailable Problems Combined list of problems [...] [place] [facility] - Coronary Artery Disease ([facility] [id number]) Active Condition Jun 17, 2022 Entered By: PAU MARY Comment: Following with Dr. 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, 2018 Entered By: MARI SCHMID Comment: BCG- teatment ( ) cystoscopy scheduled 12/26/18 and 01/17/19 [facility] [place] [facility] Degenerative disc disease Active Condition [facility] [place] [facility] H/O cardiac surgery Active Condition Jun 22, 2017 Entered By: MARI SCHMID Comment: stent 2015 [facility] [place] [facility] History of - surgery Active Condition Jun [...] Colonscopy - polyps ( 5 yrs )- [facility] 2018 Entered By: MARI SCHMID Comment: 2018 [...] wants MRI of lumbar spine [facility] [place] [facility] PAD - Peripheral arterial disease Active Condition Dec 28 8 Entered By: MARI SCHMID Comment: 2nd aortogram- bil 12/19/17Au2021 Entered By: PAU MARY Comment: with caulidcation, though improved, following with Vascular-- Dr. Bear- has required multiple LE interventions, Vascular considering switchign plavix to xarelto 2.5mg bid [facility] [place] [facility] Screening status Active Condition Dec 28, 2017 Entered By: MARI SCHMID Comment: Colonoscopy 2018 ( no result ) - per pt repeat in 5 yrs.Dec 28, 2017 Entered By: MARI SCHMID Comment: aortogram bilateral lower legs - [facility] 12/19/17 - DR SYLWIA STROUD [facility] [place] [facility] Under care of multiple providers Active Condition Dec 28, 2017 Entered By: MARI SCHMID Comment: non va- Dr Trevon Colby ( in office and the [facility])Jun 28, 2017 Entered By: MARI SCHMID Comment: Urology- Dr Petit 2018 Entered By: MARI SCHMID Comment: [facility]- ( eye/ PODIATRY) [facility] Diagnosis: ICD-10-CM K03.6 Deposits [accretions] on teeth Active Diagnosis [facility] Diagnosis: ICD-10-CM I10 Essential (primary) hypertension Active Diagnosis [facility] Diagnosis: ICD-10-CM M54.17 Radiculopathy, lumbosacral region Active Diagnosis [facility] Medications Combined list of outpatient medications from Department of Defense and [facility] facilities.Medications provided include 1) outpatient medications from the last 15 months, and 2) patient-reported medications. Medication Details Route Status Patient Instructions Prescription Expires Prescription Number Last Dispense Date Ordering Provider Order Date Order Qty Source ATORVASTATI N CA 80MG TAB TAKE ONE TABLET BY MOUTH ONCE DAILY FOR CHOLESTE ROL ORAL 03/25/2025 [id number] ERON MANUEL 2023 90 [facility] CLOPIDOGREL BISULFATE 75MG TAB TAKE ONE TABLET BY MOUTH ONCE DAILY ORAL DISCONT INUED (EDIT) 03/29/2024 [id number] ERON MANUEL 2022 90 [facility] CLOPIDOGREL BISULFATE 75MG TAB TAKE ONE TABLET BY MOUTH ONCE DAILY FOR MYOCARDI AL REINFARC TION PREVENTI ON ORAL 03/25/2025 [id number] ERON MANUEL 2023 90 [facility] EZETIMIBE 10MG TAB TAKE ONE TABLET BY MOUTH ONCE DAILY TO LOWER CHOLESTE ROL ORAL 03/25/2025 [id number] ERON MANUEL 2023 90 [facility] HYDROCHLORO THIAZIDE 12.5MG/NISHA NOPRIL 20MG TAB TAKE 1 TABLET BY MOUTH AT BEDTIME FOR HIGH BLOOD PRESSURE (NOTE DOSE) ORAL 03/25/2025 [id number] ERON MANUEL 2023 90 [facility] [facility] METOPROLOL SUCCINATE 50MG TAB,SA TAKE ONE TABLET BY MOUTH ONCE DAILY FOR BLOOD PRESSURE /HEART ORAL 03/25/2025 [id number] ERON MANUEL 2023 90 [facility] [place] [facility] NAPROXEN 500MG TAB TAKE ONE TABLET BY MOUTH TWICE DAILY NEEDED FOR PAIN TAKE WITH FOOD ORAL 10/12/2024 [id number] 4 ERON MANUEL 2023 90 [facility] [place] SODIUM FLUORIDE 1.1% TOOTHPASTE BRUSH SMALL AMOUNT TO TEETH TWICE DAILY FOR TOOTH DECAY PREVENTI ON DENTAL ACTIVE 09/03/2025 [id number] MIKAELA HEBERT 2023 51 [facility] [place] [facility] [facility] SODIUM FLUORIDE 1.1% TOOTHPASTE BRUSH SMALL AMOUNT TO TEETH TWICE DAILY DENTAL 06/01/2024 [id number] 4 CRISSY MAHER 2022 204 [facility] [place] [facility] Allergies, Adverse Reactions, Alerts Combined list of allergies from Department of Defense and Veterans Affairs facilities. It does not include entries that were removed or entered in error. Substance Category Reaction Severity Reaction type Status Date Reported Comments Source PERCOCET Propensity to adverse reactions to drug (finding) Sweating active 7 [facility] [place] [facility] Immunizations Combined list of available immunizations from the Department of Defense and Veterans Affairs facilities. Immunization Series Date Given Administered By Site Reaction Lot Number CVX Code Drug Tree Planter Status Comments Source INFLUENZA, UNSPECIFIED FORMULATION 2022 88 complet ed HISTORICA L INFORMATI ON - SOURCE UNSPECIFI ED, [facility] [place] [facility] INFLUENZA, UNSPECIFIED FORMULATION 2021 88 complet ed HISTORICA L INFORMATI ON - SOURCE UNSPECIFI ED, [facility] [place] COVID-19 (MODERNA), MRNA, LNP-S, PF, 100 MCG/0.5ML DOSE OR 50 MCG/0.25ML DOSE 3 2020 207 complet ed [facility] COVID-19 (MODERNA), MRNA, LNP-S, PF, 100 MCG/0.5 ML DOSE 2 2020 207 complet ed MOD; [id number]; 1 [facility] [place] COVID-19 (MODERNA), MRNA, LNP-S, PF, 100 MCG/0.5 ML DOSE 1 2020 207 complet ed MOD; [id number]; 1 [facility] [place] [...] Aug 28, 2024 09:07 AM Reporting Lab: [facility] [place] [facility] [address] [facility] [address] Performing Lab: [facility] [place] [facility] [address] [facility] [address] [facility] [place] [facility] MICROALBU MIN CREATININ E RATIO PANEL MICROALBUMI N [MASS/VOLUM E] IN URINE 0.7 mg/dL 09/02 Specimen Type: URINE No comment entered. Ordering Provider: LAURIE CHINCHILLA Report Released Date/Time: Aug 28, 2024 09:07 AM Reporting Lab: [facility] [place] [address] [address] Performing Lab: [facility] [place] [facility] [address] [facility] [address] [facility] [place] [facility] MICROALBU MIN CREATININ E RATIO PANEL CREATININE [MASS/VOLUM E] IN URINE 52.17 mg/dL 09/02 Specimen Type: URINE No comment entered. Ordering Provider: LAURIE CHINCHILLA Report Released Date/Time: Aug 28, 2024 09:07 AM Reporting Lab: [facility] [place] [address] [address] Performing Lab: [facility] [place] [facility] [address] [facility] [address] [facility] [place] [facility] BASIC METABOLIC PANEL (non-fast ing) UREA NITROGEN [MASS/VOLUM E] IN SERUM OR PLASMA 33 mg/dL 7 - 25 09/02 H Specimen Type: SERUM No comment entered. Ordering Provider: LAURIE CHINCHILLA Report Released Date/Time: Aug 28, 2024 09:07 AM Reporting Lab: [facility] [place] [address] [address] Performing Lab: [facility] [address] [facility] [address] [facility] BASIC METABOLIC PANEL (non-fast ing) GLUCOSE [MASS/VOLUM E] IN SERUM OR PLASMA 97 mg/dL 65 - 100 09/02 Specimen Type: SERUM No comment entered. Ordering Provider: LAURIE CHINCHILLA Report Released Date/Time: Aug 28, 2024 09:07 AM Reporting Lab: [facility] [address] [facility] [address] Performing Lab: [facility] [address] [facility] [address] [facility] BASIC METABOLIC PANEL (non-fast ing) SODIUM [MOLES/VOLU ME] IN SERUM OR PLASMA 136 mmol/L 135 - 145 09/02 Specimen Type: SERUM No comment entered. Ordering Provider: LAURIE CHINCHILLA Report Released Date/Time: Aug 28, 2024 09:07 AM Reporting Lab: [facility] [address] [facility] [address] Performing Lab: [facility] [address] [facility] [address] [facility] BASIC METABOLIC PANEL (non-fast ing) POTASSIUM [MOLES/VOLU ME] IN SERUM OR PLASMA 4.7 mmol/L 3.5 - 5.0 09/02 Specimen Type: SERUM No comment entered. Ordering Provider: LAURIE CHINCHILLA Report Released Date/Time: Aug 28, 2024 09:07 AM Reporting Lab: [facility] [address] [facility] [address] Performing Lab: [facility] [address] [facility] [address] [facility] BASIC METABOLIC PANEL (non-fast ing) CHLORIDE [MOLES/VOLU ME] IN SERUM OR PLASMA 106 mmol/L 100 - 110 09/02 Specimen Type: SERUM No comment entered. Ordering Provider: LAURIE CHINCHILLA Report Released Date/Time: Aug 28, 2024 09:07 AM Reporting Lab: [facility]N [facility] [address] [facility] [address] Performing Lab: [facility]RL W[facility]N [facility] [address] [facility]ITALRUSA [facility]OS[facility]ITALN [facility] BASIC METABOLIC PANEL (non-fast ing) CARBON DIOXIDE, TOTAL [MOLES/VOLU ME] IN SERUM OR PLASMA 24 meq/L 20 - 30 09/02 Specimen Type: SERUM No comment entered. Ordering Provider: LAURIE CHINCHILLA Report Released Date/Time: Aug 28, 2024 09:07 AM Reporting Lab: [facility]RL TRN [address] [address] Performing Lab: [facility]RL [facility] [address] [address] [facility]ITALRUSA [facility] UNIVERS[facility] HOSPITALN [facility] BASIC METABOLIC PANEL (non-fast ing) CREATININE [MASS/VOLUM E] IN SERUM OR PLASMA 1.40 mg/dL 0.50 - 1.40 09/02 Specimen Type: SERUM No comment entered. Ordering Provider: LAURIE CHINCHILLA Report Released Date/Time: Aug 28, 2024 09:07 AM Reporting Lab: [facility]RL TRN [facility] [address] Performing Lab: [facility]RL TRN [facility] [address] [facility]RL [facility] BASIC METABOLIC PANEL (non-fast ing) GLOMERULAR FILTRATION RATE/1.73 SQ M.PREDICTED [VOLUME RATE/AREA] IN SERUM, PLASMA OR BLOOD BY CREATININE- BASED FORMULA (CKD-EPI 2020) 50 mL/min 60 09/02 L Specimen Type: SERUM No comment entered. Ordering Provider: LARUIE CHINCHILLA Report Released Date/Time: Aug 28, 2024 09:07 AM Reporting Lab: [facility] HOSPITALRTR[facility]ENTERTRN [facility]ITALUSE[address] [address] Performing Lab: [facility] [place] [facility] [address] [facility] [address] [facility]RL [facility] [place] [facility] LIPID PANEL, NON FASTING CHOLESTEROL [MASS/VOLUM E] IN SERUM OR PLASMA 128 mg/dL 09/02 Specimen Type: SERUM No comment entered. Ordering Provider: LAURIE CHINCHILLA Report Released Date/Time: Aug 28, 2024 09:07 AM Reporting Lab: [facility]RL [facility] [place] [facility] [address] [facility] [address] Performing Lab: [facility] [address] [facility] [address] [facility]ITALRL TRN [facility]ITALUSE [facility] LIPID PANEL, NON FASTING TRIGLYCERID E [MASS/VOLUM E] IN SERUM OR PLASMA 69 mg/dL 0 - 150 09/02 Specimen Type: SERUM No comment entered. Ordering Provider: LAURIE CHINCHILLA Report Released Date/Time: Aug 28, 2024 09:07 AM Reporting Lab: [facility]ITALRL [facility] [place] [facility] [address] [facility] [address] Performing Lab: [place] [facility] [address] [facility] [address] [facility]RL [facility] [place] [facility] LIPID PANEL, NON FASTING CHOLESTEROL IN LDL [MASS/VOLUM E] IN SERUM OR PLASMA BY CALCULATION 60 mg/dL 0 - 129 09/02 Specimen Type: SERUM No comment entered. Ordering Provider: LAURIE CHINCHILLA Report Released Date/Time: Aug 28, 2024 09:07 AM Reporting Lab: [facility] [place] [facility] [address] [facility] [address] Performing Lab: [facility] [place] [facility] [address] [facility] [address] [facility]ITALRL [facility] [place] [facility] LIPID PANEL, NON FASTING CHOLESTEROL .TOTAL/CHOL ESTEROL IN HDL [MASS RATIO] IN SERUM OR PLASMA 2.4 09/02 Specimen Type: SERUM No comment entered. Ordering Provider: LAURIE CHINCHILLA Report Released Date/Time: Aug 28, 2024 09:07 AM Reporting Lab: [facility] [address] [facility] [address] Performing Lab: [facility] [address] [facility] [address] [facility]ITALUSE [facility] LIPID PANEL, NON FASTING CHOLESTEROL IN HDL [MASS/VOLUM E] IN SERUM OR PLASMA 54 mg/dL 40 - 60 09/02 Specimen Type: SERUM No comment entered. Ordering Provider: LAURIE CHINCHILLA Report Released Date/Time: Aug 28, 2024 09:07 AM Reporting Lab: [facility] [address] [facility] [address] Performing Lab: [facility] [address] [address] [facility]ITALUSE [facility] TSH THYROTROPIN [UNITS/VOLU ME] IN SERUM OR PLASMA 1.43 u[IU]/ mL 0.35 - 5.00 09/02 Specimen Type: SERUM No comment entered. Ordering Provider: LAURIE CHINCHILLA Report Released Date/Time: Aug 28, 2024 09:07 AM Reporting Lab: [address] [address] Performing Lab: [facility] HOSPITALRUSA [facility] UNIVERSITY HOSPITALN [address] [address] [facility] HEMOGLOBI N A1C PANEL HEMOGLOBIN A1C/HEMOGLO [...] Aug 28, 2024 09:07 AM Reporting Lab: [address] [address] Performing Lab: [facility] [place] [facility] [address] [facility] [address] [facility] [place] [facility] CBC AND DIFF (AUTO) LEUKOCYTES [#/VOLUME] IN BLOOD BY AUTOMATED COUNT 8.50 10*3/u L 4.50 - 11.00 09/02 Specimen Type: BLOOD No comment entered. Ordering Provider: LAURIE CHINCHILLA Report Released Date/Time: Aug 28, 2024 09:07 AM Reporting Lab: [facility] [place] [facility] [address] [facility] [address] Performing Lab: [facility] [place] [facility] [address] [facility] [address] [facility] [place] [facility] CBC AND DIFF (AUTO) ERYTHROCYTE S [#/VOLUME] IN BLOOD BY AUTOMATED COUNT 3.92 10*6/u L 4.23 - 5.66 09/02 L Specimen Type: BLOOD No comment entered. Ordering Provider: LAURIE CHINCHILLA Report Released Date/Time: Aug 28, 2024 09:07 AM Reporting Lab: [facility]ITALRL [facility]N [place] [address] [address] Performing Lab: [facility] [place] [facility] [address] [facility] [address] [facility]RL [facility] [place] [facility] CBC AND DIFF (AUTO) HEMOGLOBIN [MASS/VOLUM E] IN BLOOD 12.9 g/dL 12.8 - 17 09/02 Specimen Type: BLOOD No comment entered. Ordering Provider: LAURIE CHINCHILLA Report Released Date/Time: Aug 28, 2024 09:07 AM Reporting Lab: [facility]ITALRL [facility]N [place] [address] [address] Performing Lab: [facility] [place] [address] [address] [facility]RL [facility] [place] [facility] CBC AND DIFF (AUTO) HEMATOCRIT [VOLUME FRACTION] OF BLOOD BY AUTOMATED COUNT 38.0 39.2 - 50.4 09/02 L Specimen Type: BLOOD No comment entered. Ordering Provider: LAURIE CHINCHILLA Report Released Date/Time: Aug 28, 2024 09:07 AM Reporting Lab: [facility] [place] [facility] [address] [facility] [address] Performing Lab: [facility] [place] [facility] [address] [facility] [address] [facility] [place] [facility] CBC AND DIFF (AUTO) MCV [ENTITIC VOLUME] BY AUTOMATED COUNT 96.9 fL 82 - 99 09/02 Specimen Type: BLOOD No comment entered. Ordering Provider: LAURIE CHINCHILLA Report Released Date/Time: Aug 28, 2024 09:07 AM Reporting Lab: [facility] [place] [facility] [address] [facility] [address] Performing Lab: [facility] [place] [facility] [address] [facility] [address] [facility] [place] [facility] CBC AND DIFF (AUTO) MCHC [MASS/VOLUM E] BY AUTOMATED COUNT 33.9 g/dL 30.8 - 35.1 09/02 Specimen Type: BLOOD No comment entered. Ordering Provider: LAURIE CHINCHILLA Report Released Date/Time: Aug 28, 2024 09:07 AM Reporting Lab: [facility] [place] [facility] [address] [facility] [address] Performing Lab: [facility] [place] [facility] [address] [facility] [address] [facility] [place] [facility] CBC AND DIFF (AUTO) PLATELETS [#/VOLUME] IN BLOOD BY AUTOMATED COUNT 259 10*3/u L 140 - 360 09/02 Specimen Type: BLOOD No comment entered. Ordering Provider: LAURIE CHINCHILLA Report Released Date/Time: Aug 28, 2024 09:07 AM Reporting Lab: [facility] [place] [facility] [address] [facility] [address] Performing Lab: [facility] [place] [facility] [address] [facility] [address] [facility] [place] [facility] CBC AND DIFF (AUTO) ERYTHROCYTE DISTRIBUTIO N WIDTH [RATIO] BY AUTOMATED COUNT 12.2 12.0 - 16.0 09/02 Specimen Type: BLOOD No comment entered. Ordering Provider: LAURIE CHINCHILLA Report Released Date/Time: Aug 28, 2024 09:07 AM Reporting Lab: [facility]RL [facility] [place] [address] [address] Performing Lab: [facility] [place] [facility] [address] [facility] [address] [facility]ITALR WSN [facility] CBC AND DIFF (AUTO) MONOCYTES [#/VOLUME] IN BLOOD BY AUTOMATED COUNT 0.76 10*3/u L 0.30 - 1.10 09/02 Specimen Type: BLOOD No comment entered. Ordering Provider: LAURIE CHINCHILLA Report Released Date/Time: Aug 28, 2024 09:07 AM Reporting Lab: [facility]RL [facility] [place] [address] [address] Performing Lab: [facility] [place] [address] [address] [facility]ITALRUSA [facility]OSPITALN [facility] CBC AND DIFF (AUTO) MCH [ENTITIC MASS] BY AUTOMATED COUNT 32.9 pg 26.2 - 32.6 09/02 H Specimen Type: BLOOD No comment entered. Ordering Provider: LAURIE CHINCHILLA Report Released Date/Time: Aug 28, 2024 09:07 AM Reporting Lab: [facility]RL [facility] [place] [address] [address] Performing Lab: [facility] [place] [address] [address] [facility]ITALRL [facility] CBC AND DIFF (AUTO) NEUTROPHILS /100 LEUKOCYTES IN BLOOD BY AUTOMATED COUNT 72.2 43.7 - 75.8 09/02 Specimen Type: BLOOD No comment entered. Ordering Provider: LAURIE CHINCHILLA Report Released Date/Time: Aug 28, 2024 09:07 AM Reporting Lab: [facility]ITALRL [facility] [place] [address] [address] Performing Lab: [facility] [place] [facility] [address] [facility] [address] [facility] [place] [facility] CBC AND DIFF (AUTO) LYMPHOCYTES /100 LEUKOCYTES IN BLOOD BY AUTOMATED COUNT 14.6 14.0 - 42.3 09/02 Specimen Type: BLOOD No comment entered. Ordering Provider: LAURIE CHINCHILLA Report Released Date/Time: Aug 28, 2024 09:07 AM Reporting Lab: [facility] [place] [facility] [address] [facility] [address] Performing Lab: [facility] [place] [facility] [address] [facility] [address] [facility] [place] [facility] CBC AND DIFF (AUTO) MONOCYTES/1 00 LEUKOCYTES IN BLOOD BY AUTOMATED COUNT 8.9 5.1 - 13.7 09/02 Specimen Type: BLOOD No comment entered. Ordering Provider: LAURIE CHINCHILLA Report Released Date/Time: Aug 28, 2024 09:07 AM Reporting Lab: [facility] [place] [facility] [address] [facility] [address] Performing Lab: [facility] [place] [facility] [address] [facility] [address] [facility] [place] [facility] CBC AND DIFF (AUTO) EOSINOPHILS /100 LEUKOCYTES IN BLOOD BY AUTOMATED COUNT 3.5 0.4 - 6.8 09/02 Specimen Type: BLOOD No comment entered. Ordering Provider: LAURIE CHINCHILLA Report Released Date/Time: Aug 28, 2024 09:07 AM Reporting Lab: [facility] [place] [facility] [address] [facility] [address] Performing Lab: [facility] [place] [facility] [address] [facility] [address] [facility] [place] [facility] CBC AND DIFF (AUTO) BASOPHILS/1 00 LEUKOCYTES IN BLOOD BY AUTOMATED COUNT 0.6 0.1 - 2.0 09/02 Specimen Type: BLOOD No comment entered. Ordering Provider: LAURIE CHINCHILLA Report Released Date/Time: Aug 28, 2024 09:07 AM Reporting Lab: [facility] [place] [facility] [address] [facility] [address] Performing Lab: [facility] [place] [facility] [address] [facility] [address] [facility] [place] [facility] CBC AND DIFF (AUTO) NEUTROPHILS [#/VOLUME] IN BLOOD BY AUTOMATED COUNT 6.13 10*3/u L 2.20 - 7.60 09/02 Specimen Type: BLOOD No comment entered. Ordering Provider: LAURIE CHINCHILLA Report Released Date/Time: Aug 28, 2024 09:07 AM Reporting Lab: [facility] [place] [facility] [address] [facility] [address] Performing Lab: [facility] [place] [facility] [address] [facility] [address] [facility] [place] CBC AND DIFF (AUTO) LYMPHOCYTES [#/VOLUME] IN BLOOD BY AUTOMATED COUNT 1.24 10*3/u L 1.00 - 3.20 09/02 Specimen Type: BLOOD No comment entered. Ordering Provider: LAURIE CHINCHILLA Report Released Date/Time: Aug 28, 2024 09:07 AM Reporting Lab: [facility] [address] [facility] [address] Performing Lab: [facility] [address] [facility] [address] [facility] CBC AND DIFF (AUTO) EOSINOPHILS [#/VOLUME] IN BLOOD BY AUTOMATED COUNT 0.30 10*3/u L 0.03 - 0.44 09/02 Specimen Type: BLOOD No comment entered. Ordering Provider: LAURIE CHINCHILLA Report Released Date/Time: Aug 28, 2024 09:07 AM Reporting Lab: [facility] [address] [facility] [address] Performing Lab: [facility] [address] [facility] [address] [facility] CBC AND DIFF (AUTO) BASOPHILS [#/VOLUME] IN BLOOD BY AUTOMATED COUNT 0.05 10*3/u L 0.01 - 0.13 09/02 Specimen Type: BLOOD No comment entered. Ordering Provider: LAURIE CHINCHILLA Report Released Date/Time: Aug 28, 2024 09:07 AM Reporting Lab: [facility] [address] [facility] [address] Performing Lab: [facility] [address] [facility] [address] [facility] CBC AND DIFF (AUTO) IMMATURE GRANULOCYTE S/100 LEUKOCYTES IN BLOOD BY AUTOMATED COUNT 0.2 0.0 - 0.7 09/02 Specimen Type: BLOOD No comment entered. Ordering Provider: LAURIE CHINCHILLA Report Released Date/Time: Aug 28, 2024 09:07 AM Reporting Lab: [facility] [address] [address] Performing Lab: [facility] [place] [address] [address] [facility] CBC AND DIFF (AUTO) IMMATURE GRANULOCYTE S [#/VOLUME] IN BLOOD 0.02 10*3/u L 0.00 - 0.06 09/02 Specimen Type: BLOOD No comment entered. Ordering Provider: LAURIE CHINCHILLA Report Released Date/Time: Aug 28, 2024 09:07 AM Reporting Lab: [facility] [place] [address] [address] Performing Lab: [facility] [place] [address] [address] [facility] CBC AND DIFF (AUTO) NRBC % 0.0 0.0 - 0.0 09/02 Specimen Type: BLOOD No comment entered. Ordering Provider: LAURIE CHINCHILLA Report Released Date/Time: Aug 28, 2024 09:07 AM Reporting Lab: [facility] [place] [address] [address] Performing Lab: [facility] [address] [facility] [address] [facility] CBC AND DIFF (AUTO) NRBC, ABS 0.00 10*3/u L 0.00 - 0.00 09/02 Specimen Type: BLOOD No comment entered. Ordering Provider: LAURIE CHINCHILLA Report Released Date/Time: Aug 28, 2024 09:07 AM Reporting Lab: [facility] [address] [facility] [address] Performing Lab: [facility] [address] [facility] [address] [facility] CALCIUM CALCIUM [MASS/VOLUM E] IN SERUM OR PLASMA 10.0 mg/dL 8.5 - 10.2 09/02 Specimen Type: SERUM No comment entered. Ordering Provider: LAURIE CHINCHILLA Report Released Date/Time: Aug 28, 2024 09:07 AM Reporting Lab: [facility] [address] [facility] [address] Performing Lab: [facility] [address] [facility] [address] [facility] Vital Signs Combined list of inpatient and outpatient Vital Signs from Department of Defense and Veterans Affairs, ranging from 12 months to all on record, depending upon the facility. Vital Sign Value Date Comments Source SYSTOLIC BLOOD PRESSURE 130 06/26/2024 09:40:00 [facility] [place] [facility] DIASTOLIC BLOOD PRESSURE 74 06/26/2024 09:40:00 [facility] [place] PULSE 62 06/26/2024 09:40:00 [facility] [place] [facility] Encounters Combined list of: 1) Encounters from [...] [facility] En[facility] [id number] 11/28 [facility] [id number] 01/31 [facility] [id number] 02/06 [facility] Encounter [id number] 02/21 [facility] CLEAN/INSP ECT JOSE PART DENT [id number] Diagnos is: ICD-10- CM K03.6 Deposit s [accret ions] on teeth BELYSHEV,N ADEZHDA 02/24 [facility] En[facility] [id number] 03/05 [facility] OFFICE O/P EST MOD 30 MIN [id number] Diagnos is: ICD-10- CM M54.17 Radicul opathy, lumbosa cral [facility] LAURIE SUAREZ 03/24 [facility] En[facility] [id number] 05/01 [facility] OFF/OP EST MAY X REQ PHY/QHP [id number] Diagnos is: ICD-10- CM I10 Essenti al (primar y) hyperte nsion PICH,FLORESITA H 06/26 [facility] En[facility] [id number] [facility] En[facility] [id number] 08/27 [facility] [id number] 1.09/01 [facility] En[facility] [id number] 1.09/01 [facility] CLEAN/INSP ECT JOSE PART DENT [id number] Diagnos is: ICD-10- CM K03.6 Deposit s [accret ions] on teeth BELYSHEV,N ADEZHDA 09/02 [facility] [id number] 09/02 [facility] En[facility] [id number] 10/03 [facility] En[facility] [id number] 04/23 [facility] Social History Combined list of available smoking, tobacco, and other social history from Department of Defense and Veterans Affairs facilities. Social History Type Response Date Comment [facility] e Tobacco smoking status MIIS [facility] NEVER USED 03/24/2024 [facility] History of tobacco use [facility] FORMER USER 03/29/2023 [facility] History of tobacco use VA-TOBACCO FORMER USER 02/10/2022 [facility] History of tobacco use [place] QU[facility] 15 YRS OR MORE 01/14/2021 [facility] of [facility] History of tobacco use LIFETIME NON-TOBACCO USER 06/22/2017 [facility] Plan of Care List of future care activities from Department of [facility] Affairs facilities. Additional future care activities may be listed in the Assessment and Plan section. Date/Time Care Activity Care Activity Detail Facili ty 06/08/2025 AMBULATORY - MEDICINE AMBULATORY - MEDICI NE [facility]
[2025-05-21 08:49] VITALS: BMI 26.6
--- NOTE | 2025-05-21 08:49 | A.OFFVIS_ITS ---
Vital Signs 05/21/25 08:49 Height 5 ft 5 in Weight 160 lb BMI 26.6 Intake Visit Reasons: 2 wk follow up angio 05/06/25 Intake Note: 2 wk follow up Right LE Angiogram 05/06/25. Pt states that he has tightness when ambulating at all times. States its worsening since Lead Java [email or web address] Developer Required: No Accompanied by: Spouse Allergies oxycodone (From PERCOCET) Allergy (Severe, Verified 05/21/25 08:56) headache/diaphoresis/nausea bee pollen (bee stings) Allergy (Intermediate, Verified 05/21/25 08:56) Hives HPI HPI 2 wk follow up angio 05/06/25: Details: The patient is an 79-year-old male presenting with a follow-up after a right lower extremity angiogram. The angiogram revealed a complete occlusion behind the knee, but collateral circulation has developed, providing adequate blood flow through two vessels to the feet. Despite this, the patient experiences significant discomfort and tightness in the legs, particularly when walking. There may be pain related to previous back surgery performed in September, which has not resulted in any improvement in symptoms. The patient has not yet engaged with pain management services, although a referral is planned to address the persistent pain and neuropathy. [facility] Medical History Bladder cancer Ascending aorta dilatation PONV (postoperative nausea and vomiting) Pulmonary emphysema Dyspnea on exertion COPD (chronic obstructive pulmonary disease) CAD (coronary artery disease) HTN (hypertension) Hyperlipidemia PAD (peripheral artery disease) Hypercholesteremia Surgical History Hx of bilateral cataract extraction Hx of cystoscopy History of back surgery H/O cardiac catheterization Stented coronary artery Hx of colonoscopy Hx of inguinal hernia repair Hx of appendectomy History of hip surgery History of femoral angiogram Family History Father CVD (cardiovascular disease) Mother Lung cancer Social History Household Members: Spouse Housing: House Are you a primary insurance healthcare representative to a significant other at home: No Do you presently have visiting nurse or other home services: No Patient Tobacco Use Status: Former Tobacco user Tobacco use type: Cigarette Years Smoked: 25 Second Hand Smoke Exposure: No service: Yes Review of Systems Const All systems reviewed & are unremarkable except as noted in HPI and below Reports no additional complaints ENT Reports Normal hearing present Card Denies chest pain, Denies chest pain at rest, Denies chest pain with activity and Denies pedal edema Resp Denies cough GI Denies abdominal pain Musc Denies abnormal gait, Denies muscle cramps and Denies radiating pain into limb Skin/Breast Denies skin ulcer and Denies wounds Neuro Reports Normal hearing present and Denies abnormal gait Psych Reports no additional complaints Physical Exam Vital Signs: BMI result Body Mass Index 26.6 Const General: cooperative, healthy appearing and comfortable Orientation/consciousness: oriented to person, oriented to place and oriented to time HEENT Head: Yes normal to inspection Neck Neck: Yes normal visual inspection Carotids: no bruits Chest Chest palpation & inspection: normal inspection of the chest Resp Effort & Inspection: normal respiratory effort and able to speak in complete sentences Auscultation: clear to auscultation bilaterally, no crackles, no rales, no rhonchi and no wheezes Cardio Other: Bilateral DP signals Rate: regular rate Rhythm: regular rhythm Heart sounds: S1 normal heart sound present and S2 normal heart sound present Bruits: no carotid bruits Peripheral pulses: Peripheral pulses 2+ throughout GI Inspection: Yes normal to inspection Skin Wounds: no wounds Hair: normal Neuro General: oriented to person, oriented to place and oriented to time Cranial nerves: Yes CN's II-XII intact bilaterally and Yes Normal hearing present Cognition (Neuro): normal cognition Motor exam (neuro): 5/5 motor strength present throughout Extrem Other: venous exam: No significant superficial varicosities or spider telangiectasias, minimal edema General: No clubbing, No cyanosis and No edema Psych Appearance: grossly normal Mental Status: mental status grossly normal Speech and movement: Normal speech and movement present Results Reviewed Results Reviewed: Angiogram results were reviewed and it does appear that the right lower extremity although has a popliteal occlusion it is very well collateralized and he does have good two-vessel runoff. Assessment & Plan Assessment & Plan (1) PAD (peripheral artery disease): Comment: (follows w/Dr. Bear) 05/06/2025 - diagnostic right lower extremity angiogram 04/04/2023- right SFA atherectomy and stent placement 04/13/2021- angioplasty right peroneal and popliteal artery, angioplasty and stent of right SFA 06/2018 Left fem endarterectomy Right superficial fem artery atherectomy and angioplasty Right atherectomy and balloon angioplasty of the popliteal & superficial arteries and peroneal artery. 12/19/2017 Code(s): I73.9 - Peripheral vascular disease, unspecified Category: Medical Plan: In short patient has stable claudication. I did review the pathophysiology of peripheral vascular disease with the patient. In addition we did discuss routine conservative measures including a healthy diet and the importance of exercise and ambulation. We did discuss risk factor modification. The patient will continue to to follow-up with surveillance follow-up in approximately 3 months. Thank you for allowing us to participate in this patient's care. If there are any questions or concerns please do not hesitate to contact us. (2) Lumbar stenosis with neurogenic claudication: Code(s): M48.062 - Spinal stenosis, lumbar region with neurogenic claudication Category: Medical Plan: I have taken the liberty of referring him to pain management to see if any additional help could be given to him and for assessment. Thank you for allowing us to assist in his care Orders: Orders US arterial duplex LE BI 3 Months I73.9 - Peripheral vascular disease, unspecified Referrals Pain Management Referral M48.062 - Spinal stenosis, lumbar region with neurogenic claudication Coding Level of Care Code Est Pt Level 4 (80393) Complex EM visit Add On G2211 Diagnoses PAD (peripheral artery disease) I73.9 Lumbar stenosis with neurogenic claudication M48.062
--- OUTSIDE RECORDS SUMMARY | 2025-05-21 08:56 | XMS_ITS | Encounter Summary ---
Author Organization [facility] Address [address] [place] [address] Care Team Providers Care Psychology Teacher Name Role Phone Trevon Colby MD Primary Care Provider Lou aiken Encounter Details Date Type Department Care Team Description 12/09/2019 Telephone Vascular Surgery - [place] [address] [place] [address] Simone Goldman MD Social History Tobacco Use Types Packs/Day Years Used Date Smoking Tobacco: Former Smokeless Tobacco: Never Comments:quit 21 years ago Sex Assigned at Date Recorded Not on file documented as of this encounter Miscellaneous Notes * Telephone Encounter - Joaquín Lucas - 12/09/2019 4:41 PM EST Faxed order to [facility]. [phone] * Telephone Encounter - Joaquín Lucas - 12/09/2019 4:26 PM EST Pt called and would like his carotid stenosis study in [facility]. Pt will call back with hospital fax number. documented in this encounter Plan of Treatment Not on file documented as of this encounter Visit Diagnoses Not on filedocumented in this encounter Care Teams Psychology Teacher Relationship Specialty Start Date End Date Trevon Colby MD PCP - General Oncology/Hematology 01/13/19 documented as of this encounter
--- OUTSIDE RECORDS SUMMARY | 2025-05-21 08:56 | XMS_ITS | Patient Health Record ---
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 Name Role Phone Trevon Colby Primary Care [...] - 1.025 pH 5.0 5.0 - 9.0 LCAIRE Negative Negative - NIT Negative Negative - PRO 15 Negative - Trace GLU Negative Negative - KET Negative Negative - UBG 0.2 0.1 - 1.8 THO Negative 0.2 - 1.3 BLD Negative Negative - MR lumbar spine wo con Reviewed date:07/27/2024 05:58:52 AM Interpretation: Performing Lab: Notes/Report: [address] [address] Magnetic Resonance Report Signed Patient: Spencer Price MR#: [id number] : 1945 Acct:[id number] Age/Sex: 78 / M ADM Date: 05/27/24 Loc: HO.MRI Attending Dr: Vikram RUVALCABA Ordering Physician: Vikram Grant Date of Service: 07/16/24 Procedure(s): MR lumbar spine wo con Accession Number(s): [id number] cc: Trevon Colby MD; Vikram Grant EXAMINATION: [...] Santiago Oliveira Signed By: <Electronically signed by Santiaog Oliveira in OV> 06/05/24 1505 DD/ 1510 TD/TT: Program Dir: [address] [address] Magnetic Resonance Report Signed Patient: Spencer Price MR#: [id number] : 1945 Acct:[id number] Age/Sex: 78 / M ADM Date: 05/27/24 Loc: HO.MRI Attending Dr: Vikram RUVALCABA Ordering Physician: Vikram Grant Date of Service: 05/27/24 Procedure(s): MR lum bar spine wo con Accession Number(s): [id number] cc: Trevon Colby MD; Vikram Grant EXAMINATION: MR LUMBAR SPINE WITH OUT CONTRAST CLINICAL INFORMATION: Low back pain, lumba r radiculopathy COMPARISON: MRI lumbar spine on 06/07/2023 TECHNIQUE: MRI of the lumbar sp ine was obtained using routine sequences without contrast. FINDINGS: T9-T10 and T10-T11 moderate degenerative thoracic disc disease, mild seam finisher ior disc protrusions are seen. The visualized [...] in OV> 06/05/24 1505 DD/ 1510 TD/TT: Program Dir: Complete Blood Count Auto Di ff Reviewed date:07/27/2024 05:58:52 AM Interpretation: Performing Lab:[facility], [address] [place] [phone] Notes/Report: White Blood Count 5.0 4.8-10.8 X10*3/uL [...] NRBC Abs Auto 0.000 0.0-0.012 X10*3/uL Comprehensive [place]. Panel Fa st Reviewed date:07/27/2024 05:58:52 AM Interpretation: Performing Lab:[facility], [address] [place] [address] Notes/Report: Sodium 137 135-145 mmol/L Potassium 4.8 3.3-5.1 mmol/L Chloride 106 96-108 mmol/L Carbon Dioxide 26 22-29 mmol/L Anion Gap 10 12-20 Blood Urea Nitrogen 32 9-16 mg/dL Creatinine 1.48 0.5-1.4 mg/dL Estimated Glomerular Filt Rate 46 NOTE: For -Ukrainian individuals, multiply the result by 1.210. Chronic [...] Panel Reviewed date:07/27/2024 05:58:52 AM Interpretation: Performing Lab:[facility], [address] [place] [phone] Notes/Report: Triglycerides 60 <150 mg/dL Desirable Triglyceride: [...] Antigen Reviewed date:07/27/2024 05:58:52 AM Interpretation: Performing Lab:[facility], [address] [place] [phone] Notes/Report: Prostate Specific Antigen 2.80 <0.05-4.0 ng/mL PSA methodology: Chavez Alinity i Chemiluminescent Microparticle Immunoassay (CMIA) Type and Screen Reviewed date:09/07/2024 06:31:42 AM Interpretation: Performing Lab:[facility], [address] [place] [phone] Notes/Report: WITNESSED BY THEW NURSING: Call Blood Bank (ext. [phone]) to band patient on admission. Type and Screen in effect until 2300 on 09-17-2024 Spec expiration changed by SHOBHA on 09/03/24 Reason: PAT SPEC 09/17/24 Blood Type OP Antibody Screen NEGATIVE Glucose, Whole Blood Reviewed date:09/18/2024 09:17:25 AM Interpretation: Performing Lab:[facility], [address] [place] [phone] Notes/Report: Glucose, Whole Blood 178 60-115 mg/dL METER # : [id number] FL guidance in OR Reviewed date:09/23/2024 08:42:28 AM Interpretation: Performing Lab: Notes/Report: [address] [address] Fluoroscopy Report Signed Patient: Spencer Price MR#: [id number] : 1945 Acct:[id number] Age/Sex: 79 / M ADM Date: 09/17/24 Loc: RUTHIE 344-[address]: Vikram RUVALCABA Ordering Physician: George Baltazar MD, PhD Date of Service: 09/17/24 Procedure(s): FL guidance in OR Accession Number(s): [id number] cc: Trevon Colby MD; George Baltazar MD, [...] by: Gillian Onofre MD 09/18/2024 12:40 PM [facility] [place]ict[place] By: Gillian Onofre MD Signed By: <Electronically signed by Gillian Onofre MD in OV> 09/18/24 1240 DD/ 9 TD/TT: 09/17/24 102 Program Dir: KAIDEN [address] [address] Fluoroscopy Report Signed Patient: Spencer Price MR#: [id number] : 1945 Acct:[id number] Age/Sex: 79 / M ADM Date: 09/17/24 Loc: .S3 344-[address]: Vikram RUVALCABA Ordering Physician: George Baltazar MD, PhD Date of Service: 09/17/24 Procedure(s): FL guidance in OR Accession Number(s): [id number] cc: Trevon Colby MD; George Baltazar MD, [...] by: Gillian Onofre MD 09/18/2024 12:40 PM [facility] [place]ict[place] By: Gillian Onofre MD Signed By: <Electronically signed by Gillian Onofre MD in OV> 09/18/24 1240 DD/ 9 TD/TT: 09/17/24 1025 Program Dir: KAIDEN Complete Blood Count Auto Di ff Reviewed date:09/23/2024 08:42:28 AM Interpretation: Performing Lab:[facility], [address] [place] [phone] Notes/Report: White Blood Count 11.7 4.8-10.8 X10*3/uL [...] date:01/19/2025 08:16:21 PM Interpretation: Performing Lab: Notes/Report: [address] [address] Ultrasound Report Signed Patient: Spencer Price MR#: [id number] : 1945 Acct:[id number] Age/Sex: 79 / M ADM Date: 11/06/24 Loc: HO.US Attending Dr: Rusty Bear MD Ordering Physician: Rusty Bear MD Date of Service: 11/06/24 Procedure(s): US arterial duplex BI w/ NA Accession Number(s): [id number] cc: Trevon Colby MD; Rusty Bear MD [...] Stent from the proximal to mid SFA: [place] artery proximal to stent: 97 cm/s Proximal stent: 142 cm/s Mid stent: 119 cm/s Distal stent: 172 cm/s [place] artery distal to stent: 154 cm/s Superficial femoral artery (mid): 154 cm/s. Stent from mid to distal SFA: [place] artery proximal to stent: 145 cm/s Proximal stent: 136 cm/s Mid stent: 121 cm/s Distal stent: 146 cm/s [place] artery distal to stent: 94 cm/s Diastolic [...] by: Yair Guaman MD 11/24/2024 12:37 PM [facility] [place] By: Yair Guaman MD Signed By: <Electronically signed by Yair Guaman MD in OV> 11/24/24 1237 DD/ 1315 TD/TT: 11/06/24 1400 Program Dir: [place] [address] Ultrasound Report Signed Patient: Spencer Price MR#: [id number] : 1945 Acct:[id number] Age/Sex: 79 / M ADM Date: 11/06/24 Loc: . Attending Dr: Rusty Bear MD Ordering Physician: Rusty Bear MD Date of Service: 11/06/24 Procedure(s): US arterial duplex BI w/ NA Accession Number(s): [id number] cc: Trevon Colby MD; Rusty Bear MD [...] from the proxi mal to mid SFA: [place] artery proxim al to stent: 97 cm/s Proximal stent: 142 cm/s Mid stent: 119 cm/s Distal stent: 172 cm/s [place] artery distal to stent: 154 cm/s Superficial femoral artery (mid): 154 cm/s. Stent from mid to distal SFA: [place] artery proxim al to stent: 145 cm/s Proximal stent: 136 cm/s Mid stent: 121 cm/s Distal stent: 146 cm/s [place] artery distal to stent: 94 cm/s Diastolic [...] by: Yair Guaman MD 11/24/2024 12:37 PM [facility] [place]ict[place] By: Yair Guaman MD Signed By: <Electronically signed by Yair Guaman MD in OV> 11/24/24 1237 DD/ 1315 TD/TT: 11/06/24 1400 Program Dir: XR lumbar spine 4V min Reviewed date:01/19/2025 08:16:21 PM Interpretation: Performing Lab: Notes/Report: [facility] [address] [place] [address] XRay Report Signed Patient: Spencer Price MR#: [id number] : 1945 Acct:[id number] Age/Sex: 79 / M ADM Date: 11/17/24 Loc: HO.HOSX Attending Dr: Vikram RUVALCABA Ordering Physician: Vikram Grant Date of Service: 11/17/24 Procedure(s): XR lumbar spine 4V min Accession Number(s): [id number] cc: Trevon Colby MD; Vikram Grant . [...] by: Akshat Jiang MD 11/19/2024 01:05 PM [facility] [place]ict[place] By: Akshat Hooper MD Signed By: <Electronically signed by Akshat Jordan MD in OV> 11/19/24 1305 DD/ 0855 TD/TT: 11/17/24 0900 Program Dir: [facility] [address] [place] [address] XRay Report Signed Patient: Spencer Price MR#: [id number] : 1945 Acct:[id number] Age/Sex: 79 / M ADM Date: 11/17/24 Loc: HO.HOSX Attending Dr: Vikram RUVALCABA Ordering Physician: Vikram Grant Date of Service: 11/17/24 Procedure(s): XR lum bar spine 4V min Accession Number(s): [id number] cc: Trevon Colby MD; Vikram Grant . [...] by: Akshat Jiang MD 11/19/2024 01:05 PM [facility] [place]ict[place] By: Akshat Rivas MD Signed By: <Electronically signed by Akshat Jordan MD in OV> 11/19/24 1305 DD/ 0855 TD/TT: 11/17/24 0900 Program Dir: MR lumbar spine wo/w con Reviewed date:01/19/2025 08:16:21 PM Interpretation: Performing Lab: Notes/Report: [address] [address] Magnetic Resonance Report Signed Patient: Spencer Price MR#: [id number] : 1945 Acct:[id number] Age/Sex: 79 / M ADM Date: 11/19/24 Loc: HO.MRI Attending Dr: Vikram RUVALCABA Ordering Physician: Vikram Grant Date of Service: 11/19/24 Procedure(s): MR lumbar spine wo/w con Accession Number(s): [id number] cc: Trevon Colby MD; Vikram Grant EXAMINATION: [...] 11/24/24 0953 DD/ 1220 TD/TT: 11/19/24 1312 Program Dir: [place] [address] Magnetic Resonance Report Signed Patient: Spencer Price MR#: [id number] : 1945 Acct:[id number] Age/Sex: 79 / M ADM Date: 11/19/24 Loc: HO.MRI Attending Dr: Vikram RUVALCABA Ordering Physician: Vikram Grant Date of Service: 11/19/24 Procedure(s): MR lum bar spine wo/w con Accession Number(s): [id number] cc: Trevon Colby MD; Vikram Grant EXAMINATION: [...] 11/24/2024 09:53 AM EST Dictated By: Akshat Rivas MD Signed By: <Electronically signed by Akshat Jordan MD in OV> 11/24/24 0953 DD/ 1220 TD/TT: 11/19/24 1312 Program Dir: Complete Blood Count Auto Di ff Reviewed date:02/04/2025 08:51:44 AM Interpretation: Performing Lab:[facility], [address] [place] [phone] Notes/Report: White Blood Count 5.0 4.8-10.8 X10*3/uL [...] NRBC Abs Auto 0.000 0.0-0.012 X10*3/uL Comprehensive [place]. Panel Fa st Reviewed date:02/04/2025 08:51:44 AM Interpretation: Performing Lab:[facility], [address] [place] [phone] Notes/Report: Sodium 137 135-145 mmol/L Potassium 4.6 [...] Panel Reviewed date:02/04/2025 08:51:45 AM Interpretation: Performing Lab:[facility], [address] [place] [phone] Notes/Report: Triglycerides 56 <150 mg/dL Desirable Triglyceride: [...] Antigen Reviewed date:02/04/2025 08:51:45 AM Interpretation: Performing Lab:[facility], [address] [place] [phone] Notes/Report: Prostate Specific Antigen 2.83 <0.05-4.0 ng/mL PSA methodology: Chavez Alinity i Chemiluminescent Microparticle Immunoassay (CMIA) Blood Urea Nitrogen Reviewed date:05/07/2025 04:33:18 AM Interpretation: Performing Lab:[facility], [address] [place] [address] Notes/Report: Blood Urea Nitrogen 32 9-16 mg/dL Creatinine Reviewed date:05/07/2025 04:33:18 AM Interpretation: Performing Lab:[facility], [address] [place] [phone] Notes/Report: Creatinine 1.50 0.5-1.4 mg/dL Estimated Glomerular Filt Rate 45 Chronic Kidney Disease: Estimated GFR < 60 mL/min/1.73m2 Severe Kidney Disease: Estimated GFR < 15 mL/min/1.73m2 CT angio abd aorta runoff Reviewed date:05/07/2025 04:33:18 AM Interpretation: Performing Lab: Notes/Report: [address] [place] [address] CT Scan Report Signed Patient: Spencer Price MR#: [id number] : 1945 Acct:[id number] Age/Sex: 79 / M ADM Date: 04/16/25 Loc: .CT Attending Dr: Rusty Bear MD Ordering Physician: Rusty Bear MD Date of Service: 04/16/25 Procedure(s): CT angio abd aorta runoff Accession Number(s): [id number] cc: Trevon Colby MD; Rusty Bear MD Report Number: [id number]: Total DLP = 787.00 mGy-cm CLINICAL HISTORY: [...] in OV> 04/17/2549 DD/ 8 TD/TT: 04/17/25848 Program Dir: [place] [address] CT Scan Report Signed Patient: Spencer Price MR#: [id number] : 1945 Acct:[id number] Age/Sex: 79 / M ADM Date: 04/16/25 Loc: HO.CT Attending Dr: Rusty Bear MD Ordering Physician: Rusty Bear MD Date of Service: 04/16/25 Procedure(s): CT ang io abd aorta runoff Accession Number(s): [id number] cc: Trevon Colby MD; Rusty Bear MD Report Number: [id number]: Total DLP = 787.00 mGy-cm CLINICAL HISTORY: [...] signed by Govind Razo MD in OV> 04/17/25848 DD/ 8 TD/TT: 04/17/25848 Program Dir: Complete Blood Count Auto Di ff Reviewed date:05/07/2025 04:33:18 AM Interpretation: Performing Lab:[facility], [address] [place] [address] Notes/Report: White Blood Count 4.7 4.8-10.8 X10*3/uL [...] NRBC Abs Auto 0.000 0.0-0.012 X10*3/uL Comprehensive [place]. Panel Fa st Reviewed date:05/07/2025 04:33:18 AM Interpretation: Performing Lab:[facility], [address] [place] [address] Notes/Report: Sodium 140 135-145 mmol/L Potassium 5.1 [...] Panel Reviewed date:05/07/2025 04:33:18 AM Interpretation: Performing Lab:[address] [address] Notes/Report: Triglycerides 46 <150 mg/dL Desirable Triglyceride: [...] ff Reviewed date:05/07/2025 04:33:18 AM Interpretation: Performing Lab:[address] [address] Notes/Report: White Blood Count 5.2 4.8-10.8 X10*3/uL [...] Nitrogen Reviewed date:05/07/2025 04:33:18 AM Interpretation: Performing Lab:[facility], [address] [place] [address] Notes/Report: Blood Urea Nitrogen 46 9-16 mg/dL Creatinine Reviewed date:05/07/2025 04:33:18 AM Interpretation: Performing Lab:[facility], [address] [place] [address] Notes/Report: Creatinine 1.66 0.5-1.4 mg/dL Creatinine Clr [...] Duration) Notes Start Date End Date Status Lisinopril-hydroCHLOROthiaz racheal 10-12.5 MG 1 tablet Orally [...] Problem Status W/U Status Risk Notes Problem 4402219 Former smoker (Z87.891) Active confirmed He is highly motivated not to smoke and we discussed means of preserving abstinence in times of stress. Problem 93395800 Hyperlipidemia (E78.5) Active confirmed His total cholesterol level is 104. His lipids are in near target range. No change in his medications was made. His lipids were reviewed. He will have fasting lipid profile in the near future. Problem 421744188 Overweight (E66.3) Active confirmed His body mass [...] weight maintenance diet low in cholesterol. Problem 723368136 Tubular adenoma (D36.9) Active confirmed He will continue to undergo colonoscopies every 5 years. Problem 71975382 Carpal tunnel syndrome, right upper limb (G56.01) Active confirmed He has seen the orthopedic surgeon and will undergo surgery for carpal tunnel syndrome on the right later this month. He is cleared for surgery at this time. Problem 34600885 Coronary artery disease (I25.10) Active confirmed He has had no recent palpitations, angina, syncope or nausea. He has been compliant with all of his medications. He saw his industrial robotics mechanic this month who found him to be stable and gave him an appointment to return in one year. Problem 047139690 BPH (benign prostatic hyperplasia) (N40.0) Active confirmed He arises from sleep once or twice a night to urinate. We have discussed lifestyle modifications he could make to reduce nocturia. Problem 989911224 Peripheral vascular disease (I73.9) Active confirmed He [...] and was thought to be stable. 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 He has an upcoming appointment with a neurosurgeon at the end of this month. Problem 724813764 Erectile dysfunction (N52.9) Active confirmed This is well compensated with medications. Problem 604354122 Osteoarthritis of right hip (M16.11) Active confirmed . He describes a hip pain as mild today. Problem 47718930 Spinal stenosis, lumbar (M48.06) Active confirmed The lumbar fusiontook place without side effects or incidents. He notices a substantial improvement in his back pain. The wound is well-healed. He reports much less pain with ambulation. 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 The discomfort has resolved. Problem Emphysema lung (J43.9) Active confirmed He is no longer smoking. He is short of breath with sustained exertion but is comfortable breathing room air at rest. Problem 582946745 History of bladder cancer (Z85.51) Active confirmed There was no sign of cancer on his exam today. He recently had a cystoscopy, March 2024 which showed no gross recurrence. Surveillance will continue Problem 172937709 Stage 2 chronic kidney disease (N18.2) Active confirmed His GFR has improved substantially since his last blood test. His urinary tract is currently asymptomatic.H is glomerular filtration rate has fallen from 54 down to 46. I have encouraged him to stay hydrated. Problem 0473977034864 Recurrent epistaxis (R04.0) Active confirmed He will continue the use of aspirin. He was instructed on techniques to stop bleeding. He was instructed to go to the emergency room if bleeding does not stop. If this continues he will see ENT for definitive treatment. 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) [...] Date Provider Diagnosis Trevon Colby III, MD [address] [place] [address] [place] [address] 08/01/2024 Trevon Colby Hyperlipidemia E78.5 ; Osteoarthritis of right hip M16.11 ; Overweight E66.3 ; Spinal stenosis, lumbar M48.06 ; Carpal tunnel syndrome, right upper limb G56.01 ; Peripheral vascular disease I73.9 ; History of bladder cancer Z85.51 and Stage 2 chronic kidney disease N18.2 Trevon Colby III, MD [address] [place] [address] [place] [address] 10/13/2024 Trevon Colby Hyperlipidemia E78.5 ; Spinal stenosis, lumbar M48.06 ; Overweight E66.3 ; BPH (benign prostatic hyperplasia) N40.0 ; Former smoker Z87.891 ; History of bladder cancer Z85.51 ; Peripheral vascular disease I73.9 ; Osteoarthritis of right hip M16.11 ; Coronary artery disease I25.10 ; Stage 2 chronic kidney disease N18.2 and Emphysema lung J43.9 Trevon Colby III, MD [address] [place] [address] [place] [address] 02/11/2025 Trevon Colby Injury of left peron eal nerve, sequela S84.12XS ; Hyperlipidemia E78.5 ; Stage 2 chronic kidney disease N18.2 ; Osteoarthritis of right hip M16.11 ; Overweight E66.3 ; Spinal stenosis, lumbar M48.06 ; BPH (benign prostatic hyperplasia) N40.0 ; Former smoker Z87.891 and Peripheral vascular disease I73.9 Trevon Colby III, MD [address] [place] [address] [place] [address] 04/13/2025 Trevon Colby Hyperlipidemia E78.5 ; Recurrent epistaxis R04.0 ; Osteoarthritis of right hip M16.11 ; Spinal stenosis, lumbar M48.06 ; Former smoker Z87.891 and Peripheral vascular disease I73.9 Trevon Colby III, MD [address] [place] [address] [place] [address] 05/05/2025 Trevon Colby Hyperlipidemia E78.5 ; Peripheral [...] Emphysema lung J43.9 Trevon Colby III, MD [address] [place] [address] [place] [address] 11/28/2024 Trevon Colby Hyperlipidemia E78.5 Trevon Colby III, MD [address] [place] [address] [place] [address] 12/12/2024 Trevon Colby Hyperlipidemia E78.5 Trevon Colby III, MD [address] [place] [address] [place] [phone] 01/19/2025 Trevon Colby III, MD [address] [place] [address] [place] [phone] 01/20/2025 Trevon Colby III, MD [address] [place] [address] [place] [phone] 05/07/2025 Trevon Colby Assessments Encounter Date Diagnosis [...] all of his medications. He saw his industrial robotics mechanic this month who found him to be [...] all of his medications. He saw his industrial robotics mechanic this month who found him to be [...] Provider Name:Trevon Colby, 08/06/2025 09:45:00 AM, [address] [facility] [address] [address] [place], [place], [address], Provider Name:Trevon Colby, 05/06/2026 09:30:00 AM, [address] [facility] [place], [place], [address], Insurance Providers Payer Name Payer Address Payer Phone Subscriber Number Group Number Insured Name Patient Relationship to Insured Coverage Start Date Coverage End Date [facility] [address] [facility] [place] [phone] [id number] Spencer Price Self - patient is the insured MEDICARE NGS [address] [place] [phone] [id number] Spencer Price Self - patient is the [...] 17 Surgical History Surgery Date(Month/Year) L3-L[place] [facility] [place] Left femoral endarterectomy, right superficial Femoral artery atherectomy and angioplasty 06/2018 Right popliteal and peroneal artery athe rectomy and angioplasty 12/2017 Angioplasty right peroneal and popliteal artery 04/13/2021 Lumbar L3-5 Laminectomy, par tial facetectomy, foraminotomy, [facility], Dr Baltazar 10/25/[address] Bear 04/2021 carpal tunnel right hand 10/2019 carpal tunnel surgery right hand, Instru m 04/2018 right common femoral artery angioplasty 2015 left iliofemoral endarterectomy 2015 cardiac catheterization with stent insertion, inferior wall ischemia, 99% right coronary artery stenosis 2015 colonoscopy, negative 2011 colonoscopy, negative 2006 colonoscopy, tubular adenoma 2002 Cataract surgery both eyes 2011 Hip replacement right appendectomy herniorrhaphy Hospitalization History Reason Date(Month/Year) Back surgery on september 1709/2024
== END 2025-05-21 09:24 | disposition home or self-care (01) ==
PROVIDERS: PCP Internal Medicine Medical Oncology; Visit Provider Surgery Vascular Surgery
DX: I73.9 Peripheral vascular disease, unspecified (principal); M48.062 Spinal stenosis, lumbar region with neurogenic claudication
CPT/HCPCS: 99214; G2211

== ENCOUNTER → 2025-05-21 08:43 | Outpatient (BNVA) | payer MEDICARE, SELFPAY | PROVIDERS: PCP Internal Medicine Medical Oncology; Visit Provider Surgery Vascular Surgery | DX: I73.9 Peripheral vascular disease, unspecified (principal); M48.062 Spinal stenosis, lumbar region with neurogenic claudication | CPT/HCPCS: 99212 ==

== ENCOUNTER 2025-06-12 11:21 | Outpatient (AMB) | payer MEDICARE, SELFPAY ==
--- OUTSIDE RECORDS SUMMARY | 2025-04-29 04:25 | XMS_ITS | Continuity of Care Document ---
Author Name [facility] Organization [facility] Care Team Providers Care Ict Help Desk Officer Name Role Phone [facility] Unavailable Unavailable Problems Combined list of problems [...] [place] [facility] - Coronary Artery Disease ([facility] [id number]) Active Condition Jun 17, 2022 Entered By: PAU MARY Comment: Following with Dr. 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, 2018 Entered By: MARI SCHMID Comment: BCG- teatment ( ) cystoscopy scheduled 12/26/18 and 01/17/19 [facility] [place] [facility] Degenerative disc disease Active Condition [facility] [place] [facility] H/O cardiac surgery Active Condition Jun 22, 2017 Entered By: MARI SCHMID Comment: stent 2015 [facility] [place] [facility] History of - surgery Active Condition [...] Colonscopy - polyps ( 5 yrs )- [facility] 2018 Entered By: MARI SCHMID Comment: 2018 [...] wants MRI of lumbar spine [facility] [place] [facility] PAD - Peripheral arterial disease Active Condition Dec 28 8 Entered By: MARI SCHMID Comment: 2nd aortogram- bil 12/19/17Au2021 Entered By: PAU MARY Comment: with caulidcation, though improved, following with Vascular-- Dr. Bear- has required multiple LE interventions, Vascular considering switchign plavix to xarelto 2.5mg bid [facility] [place] [facility] Screening status Active Condition Dec 28, 2017 Entered By: MARI SCHMID Comment: Colonoscopy 2018 ( no result ) - per pt repeat in 5 yrs.Dec 28, 2017 Entered By: MARI SCHMID Comment: aortogram bilateral lower legs - [facility] 12/19/17 - DR SYLWIA STROUD [facility] [place] [facility] Under care of multiple providers Active Condition Dec 28, 2017 Entered By: MARI SCHMID Comment: non va- Dr Trevon Colby ( in office and the [facility])Jun 28, 2017 Entered By: MARI SCHMID Comment: Urology- Dr Petit 2018 Entered By: MARI SCHMID Comment: [facility]- ( eye/ PODIATRY) [facility] Diagnosis: ICD-10-CM K03.6 Deposits [accretions] on teeth Active Diagnosis [facility] Diagnosis: ICD-10-CM I10 Essential (primary) hypertension Active Diagnosis [facility] Diagnosis: ICD-10-CM M54.17 Radiculopathy, lumbosacral region Active Diagnosis [facility] Medications Combined list of outpatient medications from Department of Defense and [facility] facilities.Medications provided include 1) outpatient medications from the last 15 months, and 2) patient-reported medications. Medication Details Route Status Patient Instructions Prescription Expires Prescription Number Last Dispense Date Ordering Provider Order Date Order Qty Source ATORVASTATI N CA 80MG TAB TAKE ONE TABLET BY MOUTH ONCE DAILY FOR CHOLESTE ROL ORAL 03/25/2025 [id number] ERON MANUEL 2023 90 [facility] CLOPIDOGREL BISULFATE 75MG TAB TAKE ONE TABLET BY MOUTH ONCE DAILY ORAL DISCONT INUED (EDIT) 03/29/2024 [id number] ERON MANUEL 2022 90 [facility] CLOPIDOGREL BISULFATE 75MG TAB TAKE ONE TABLET BY MOUTH ONCE DAILY FOR MYOCARDI AL REINFARC TION PREVENTI ON ORAL 03/25/2025 [id number] ERON MANUEL 2023 90 [facility] EZETIMIBE 10MG TAB TAKE ONE TABLET BY MOUTH ONCE DAILY TO LOWER CHOLESTE ROL ORAL 03/25/2025 [id number] ERON MANUEL 2023 90 [facility] HYDROCHLORO THIAZIDE 12.5MG/NISHA NOPRIL 20MG TAB TAKE 1 TABLET BY MOUTH AT BEDTIME FOR HIGH BLOOD PRESSURE (NOTE DOSE) ORAL 03/25/2025 [id number] ERON MANUEL 2023 90 [facility] [facility] METOPROLOL SUCCINATE 50MG TAB,SA TAKE ONE TABLET BY MOUTH ONCE DAILY FOR BLOOD PRESSURE /HEART ORAL 03/25/2025 [id number] ERON MANUEL 2023 90 [facility] [place] [facility] NAPROXEN 500MG TAB TAKE ONE TABLET BY MOUTH TWICE DAILY NEEDED FOR PAIN TAKE WITH FOOD ORAL 10/12/2024 [id number] 4 ERON MANUEL 2023 90 [facility] [place] SODIUM FLUORIDE 1.1% TOOTHPASTE BRUSH SMALL AMOUNT TO TEETH TWICE DAILY FOR TOOTH DECAY PREVENTI ON DENTAL ACTIVE 09/03/2025 [id number] MIKAELA HEBERT 2023 [address] [facility] [place] [facility] SODIUM FLUORIDE 1.1% TOOTHPASTE BRUSH SMALL AMOUNT TO TEETH TWICE DAILY DENTAL 06/01/2024 [id number] CRISSY MAHER 2022 204 [facility] [place] [facility] Allergies, Adverse Reactions, Alerts Combined list of allergies from Department of Defense and Veterans Affairs facilities. It does not include entries that were removed or entered in error. Substance Category Reaction Severity Reaction type Status Date Reported Comments Source PERCOCET Propensity to adverse reactions to drug (finding) Sweating active [facility] [place] [facility] Immunizations Combined list of available immunizations from the Department of Defense and Veterans Affairs facilities. Immunization Series Date Given Administered By Site Reaction Lot Number CVX Code Drug Hearing Examiner Status Comments Source INFLUENZA, UNSPECIFIED FORMULATION 2022 88 complet ed HISTORICA L INFORMATI ON - SOURCE UNSPECIFI ED, [facility] [place] [facility] [facility] INFLUENZA, UNSPECIFIED FORMULATION 2021 88 complet ed HISTORICA L INFORMATI ON - SOURCE UNSPECIFI ED, [facility] COVID-19 (MODERNA), MRNA, LNP-S, PF, 100 MCG/0.5ML DOSE OR 50 MCG/0.25ML DOSE 3 2020 207 complet ed [facility] COVID-19 (MODERNA), MRNA, LNP-S, PF, 100 MCG/0.5 ML DOSE 2 2020 207 complet ed MOD; [id number]; 1 [facility] [place] [facility] [facility] COVID-19 (MODERNA), MRNA, LNP-S, PF, 100 MCG/0.5 ML DOSE 1 2020 207 complet ed MOD; [id number]; 1 [facility] [place] [facility] [...] Aug 28, 2024 09:07 AM Reporting Lab: [facility] [place] [facility] [address] [facility] [address] Performing Lab: [facility] [place] [facility] [address] [facility] [address] [facility] [place] [facility] MICROALBU MIN CREATININ E RATIO PANEL MICROALBUMI N [MASS/VOLUM E] IN URINE 0.7 mg/dL 09/02 Specimen Type: URINE No comment entered. Ordering Provider: LAURIE CHINCHILLA Report Released Date/Time: Aug 28, 2024 09:07 AM Reporting Lab: [facility] [place] [address] [address] Performing Lab: [facility] [place] [facility] [address] [facility] [address] [facility] [place] [facility] MICROALBU MIN CREATININ E RATIO PANEL CREATININE [MASS/VOLUM E] IN URINE 52.17 mg/dL 09/02 Specimen Type: URINE No comment entered. Ordering Provider: LAURIE CHINCHILLA Report Released Date/Time: Aug 28, 2024 09:07 AM Reporting Lab: [facility] [place] [address] [address] Performing Lab: [facility] [place] [facility] [address] [facility] [address] [facility] [place] [facility] BASIC METABOLIC PANEL (non-fast ing) UREA NITROGEN [MASS/VOLUM E] IN SERUM OR PLASMA 33 mg/dL 7 - 25 09/02 H Specimen Type: SERUM No comment entered. Ordering Provider: LAURIE CHINCHILLA Report Released Date/Time: Aug 28, 2024 09:07 AM Reporting Lab: [facility] [place] [address] [address] Performing Lab: [facility] [address] [facility] [address] [facility] BASIC METABOLIC PANEL (non-fast ing) GLUCOSE [MASS/VOLUM E] IN SERUM OR PLASMA 97 mg/dL 65 - 100 09/02 Specimen Type: SERUM No comment entered. Ordering Provider: LAURIE CHINCHILLA Report Released Date/Time: Aug 28, 2024 09:07 AM Reporting Lab: [facility] [address] [facility] [address] Performing Lab: [facility] [address] [facility] [address] [facility] BASIC METABOLIC PANEL (non-fast ing) SODIUM [MOLES/VOLU ME] IN SERUM OR PLASMA 136 mmol/L 135 - 145 09/02 Specimen Type: SERUM No comment entered. Ordering Provider: LAURIE CHINCHILLA Report Released Date/Time: Aug 28, 2024 09:07 AM Reporting Lab: [facility] [address] [facility] [address] Performing Lab: [facility] [address] [facility] [address] [facility] BASIC METABOLIC PANEL (non-fast ing) POTASSIUM [MOLES/VOLU ME] IN SERUM OR PLASMA 4.7 mmol/L 3.5 - 5.0 09/02 Specimen Type: SERUM No comment entered. Ordering Provider: LAURIE CHINCHILLA Report Released Date/Time: Aug 28, 2024 09:07 AM Reporting Lab: [facility] [address] [facility] [address] Performing Lab: [facility] [address] [facility] [address] [facility] BASIC METABOLIC PANEL (non-fast ing) CHLORIDE [MOLES/VOLU ME] IN SERUM OR PLASMA 106 mmol/L 100 - 110 09/02 Specimen Type: SERUM No comment entered. Ordering Provider: LAURIE CHINCHILLA Report Released Date/Time: Aug 28, 2024 09:07 AM Reporting Lab: [facility] TRN [facility] [address] [facility] [address] Performing Lab: [facility] W[facility]N [facility]ENTERUSE[address] [address] [facility]ITALRHARTSELLE [facility] CENTERN [facility] BASIC METABOLIC PANEL (non-fast ing) CARBON DIOXIDE, TOTAL [MOLES/VOLU ME] IN SERUM OR PLASMA 24 meq/L 20 - 30 09/02 Specimen Type: SERUM No comment entered. Ordering Provider: LAURIE CHINCHILLA Report Released Date/Time: Aug 28, 2024 09:07 AM Reporting Lab: [facility] TRN [address] [address] Performing Lab: [facility] [address] [address] [facility]ITALRHARTSELLE [facility] CENTERN [facility] BASIC METABOLIC PANEL (non-fast ing) CREATININE [MASS/VOLUM E] IN SERUM OR PLASMA 1.40 mg/dL 0.50 - 1.40 09/02 Specimen Type: SERUM No comment entered. Ordering Provider: LAURIE CHINCHILLA Report Released Date/Time: Aug 28, 2024 09:07 AM Reporting Lab: [facility] TRN [facility]ENTERUSE[address] [address] Performing Lab: [facility] TRN [facility]ENTERUSE[address] [address] [facility] BASIC METABOLIC PANEL (non-fast ing) GLOMERULAR FILTRATION RATE/1.73 SQ M.PREDICTED [VOLUME RATE/AREA] IN SERUM, PLASMA OR BLOOD BY CREATININE- BASED FORMULA (CKD-EPI 2020) 50 mL/min 60 09/02 L Specimen Type: SERUM No comment entered. Ordering Provider: LAURIE HCINCHILLA Report Released Date/Time: Aug 28, 2024 09:07 AM Reporting Lab: [facility] HOSPITALRENCOMPASS [facility] SHEL[facility] COUNTYTRN [facility]ENTERUSE[address] [address] Performing Lab: [facility] [place] [facility] [address] [facility] [address] [facility] [place] [facility] LIPID PANEL, NON FASTING CHOLESTEROL [MASS/VOLUM E] IN SERUM OR PLASMA 128 mg/dL 09/02 Specimen Type: SERUM No comment entered. Ordering Provider: LAURIE CHINCHILLA Report Released Date/Time: Aug 28, 2024 09:07 AM Reporting Lab: [facility] [place] [facility] [address] [facility] [address] Performing Lab: [facility] [address] [facility] [address] [facility] TRN [facility]ENTERUSE [facility] LIPID PANEL, NON FASTING TRIGLYCERID E [MASS/VOLUM E] IN SERUM OR PLASMA 69 mg/dL 0 - 150 09/02 Specimen Type: SERUM No comment entered. Ordering Provider: LAURIE CHINCHILLA Report Released Date/Time: Aug 28, 2024 09:07 AM Reporting Lab: [facility] [place] [facility] [address] [facility] [address] Performing Lab: [facility]ENTERUSETS [facility] [address] [facility] [address] [facility] [place] [facility] LIPID PANEL, NON FASTING CHOLESTEROL IN LDL [MASS/VOLUM E] IN SERUM OR PLASMA BY CALCULATION 60 mg/dL 0 - 129 09/02 Specimen Type: SERUM No comment entered. Ordering Provider: LAURIE CHINCHILLA Report Released Date/Time: Aug 28, 2024 09:07 AM Reporting Lab: [facility] [place] [facility] [address] [facility] [address] Performing Lab: [facility] [place] [facility] [address] [facility] [address] [facility] [place] [facility] LIPID PANEL, NON FASTING CHOLESTEROL .TOTAL/CHOL ESTEROL IN HDL [MASS RATIO] IN SERUM OR PLASMA 2.4 09/02 Specimen Type: SERUM No comment entered. Ordering Provider: LAURIE CHINCHILLA Report Released Date/Time: Aug 28, 2024 09:07 AM Reporting Lab: [facility] [address] [facility] [address] Performing Lab: [facility] [address] [facility] [address] [facility]ENTERUSE [facility] LIPID PANEL, NON FASTING CHOLESTEROL IN HDL [MASS/VOLUM E] IN SERUM OR PLASMA 54 mg/dL 40 - 60 09/02 Specimen Type: SERUM No comment entered. Ordering Provider: LAURIE CHINCHILLA Report Released Date/Time: Aug 28, 2024 09:07 AM Reporting Lab: [facility] [address] [facility] [address] Performing Lab: [facility]AMN [address] [address] [facility]ENTERUSE [facility] TSH THYROTROPIN [UNITS/VOLU ME] IN SERUM OR PLASMA 1.43 u[IU]/ mL 0.35 - 5.00 09/02 Specimen Type: SERUM No comment entered. Ordering Provider: LAURIE CHINCHILLA Report Released Date/Time: Aug 28, 2024 09:07 AM Reporting Lab: [address] [address] Performing Lab: [facility] HOSPITALRHARTSELLE MEDICAL CENTERN [address] [address] [facility] HEMOGLOBI N A1C PANEL HEMOGLOBIN A1C/HEMOGLO [...] Aug 28, 2024 09:07 AM Reporting Lab: [address] [address] Performing Lab: [facility] [place] [facility] [address] [facility] [address] [facility] [place] [facility] CBC AND DIFF (AUTO) LEUKOCYTES [#/VOLUME] IN BLOOD BY AUTOMATED COUNT 8.50 10*3/u L 4.50 - 11.00 09/02 Specimen Type: BLOOD No comment entered. Ordering Provider: LAURIE CHINCHILLA Report Released Date/Time: Aug 28, 2024 09:07 AM Reporting Lab: [facility] [place] [facility] [address] [facility] [address] Performing Lab: [facility] [place] [facility] [address] [facility] [address] [facility] [place] [facility] CBC AND DIFF (AUTO) ERYTHROCYTE S [#/VOLUME] IN BLOOD BY AUTOMATED COUNT 3.92 10*6/u L 4.23 - 5.66 09/02 L Specimen Type: BLOOD No comment entered. Ordering Provider: LAURIE CHINCHILLA Report Released Date/Time: Aug 28, 2024 09:07 AM Reporting Lab: [facility] [place] [address] [address] Performing Lab: [facility] [place] [facility] [address] [facility] [address] [facility] [place] [facility] CBC AND DIFF (AUTO) HEMOGLOBIN [MASS/VOLUM E] IN BLOOD 12.9 g/dL 12.8 - 17 09/02 Specimen Type: BLOOD No comment entered. Ordering Provider: LAURIE CHINCHILLA Report Released Date/Time: Aug 28, 2024 09:07 AM Reporting Lab: [facility] [place] [address] [address] Performing Lab: [facility] [place] [place] [address] [address] [facility] [place] [facility] CBC AND DIFF (AUTO) HEMATOCRIT [VOLUME FRACTION] OF BLOOD BY AUTOMATED COUNT 38.0 39.2 - 50.4 09/02 L Specimen Type: BLOOD No comment entered. Ordering Provider: LAURIE CHINCHILLA Report Released Date/Time: Aug 28, 2024 09:07 AM Reporting Lab: [facility] [place] [facility] [address] [facility] [address] Performing Lab: [facility] [place] [facility] [address] [facility] [address] [facility] [place] [facility] CBC AND DIFF (AUTO) MCV [ENTITIC VOLUME] BY AUTOMATED COUNT 96.9 fL 82 - 99 09/02 Specimen Type: BLOOD No comment entered. Ordering Provider: LAURIE CHINCHILLA Report Released Date/Time: Aug 28, 2024 09:07 AM Reporting Lab: [facility] [place] [facility] [address] [facility] [address] Performing Lab: [facility] [place] [facility] [address] [facility] [address] [facility] [place] [facility] CBC AND DIFF (AUTO) MCHC [MASS/VOLUM E] BY AUTOMATED COUNT 33.9 g/dL 30.8 - 35.1 09/02 Specimen Type: BLOOD No comment entered. Ordering Provider: LAURIE CHINCHILLA Report Released Date/Time: Aug 28, 2024 09:07 AM Reporting Lab: [facility] [place] [facility] [address] [facility] [address] Performing Lab: [facility] [place] [facility] [address] [facility] [address] [facility] [place] [facility] CBC AND DIFF (AUTO) PLATELETS [#/VOLUME] IN BLOOD BY AUTOMATED COUNT 259 10*3/u L 140 - 360 09/02 Specimen Type: BLOOD No comment entered. Ordering Provider: LAURIE CHINCHILLA Report Released Date/Time: Aug 28, 2024 09:07 AM Reporting Lab: [facility] [place] [facility] [address] [facility] [address] Performing Lab: [facility] [place] [facility] [address] [facility] [address] [facility] [place] [facility] CBC AND DIFF (AUTO) ERYTHROCYTE DISTRIBUTIO N WIDTH [RATIO] BY AUTOMATED COUNT 12.2 12.0 - 16.0 09/02 Specimen Type: BLOOD No comment entered. Ordering Provider: LAURIE CHINCHILLA Report Released Date/Time: Aug 28, 2024 09:07 AM Reporting Lab: [facility] [place] [address] [address] Performing Lab: [facility] [place] [facility] [address] [facility] [address] [facility]ITALR WSN [facility] TS [facility] CBC AND DIFF (AUTO) MONOCYTES [#/VOLUME] IN BLOOD BY AUTOMATED COUNT 0.76 10*3/u L 0.30 - 1.10 09/02 Specimen Type: BLOOD No comment entered. Ordering Provider: LAURIE CHINCHILLA Report Released Date/Time: Aug 28, 2024 09:07 AM Reporting Lab: [facility] [place] [address] [address] Performing Lab: [place] [facility] [place] [address] [address] [facility]ITALRHARTSELLE [facility]ENTERN [facility] CBC AND DIFF (AUTO) MCH [ENTITIC MASS] BY AUTOMATED COUNT 32.9 pg 26.2 - 32.6 09/02 H Specimen Type: BLOOD No comment entered. Ordering Provider: LAURIE CHINCHILLA Report Released Date/Time: Aug 28, 2024 09:07 AM Reporting Lab: [facility] [place] [address] [address] Performing Lab: [place] [facility] [place] [address] [address] [facility]RL [facility] CBC AND DIFF (AUTO) NEUTROPHILS /100 LEUKOCYTES IN BLOOD BY AUTOMATED COUNT 72.2 43.7 - 75.8 09/02 Specimen Type: BLOOD No comment entered. Ordering Provider: LAURIE CHINCHILLA Report Released Date/Time: Aug 28, 2024 09:07 AM Reporting Lab: [facility] [place] [address] [address] Performing Lab: [facility] [place] [facility] [address] [facility] [address] [facility] [place] [facility] CBC AND DIFF (AUTO) LYMPHOCYTES /100 LEUKOCYTES IN BLOOD BY AUTOMATED COUNT 14.6 14.0 - 42.3 09/02 Specimen Type: BLOOD No comment entered. Ordering Provider: LAURIE CHINCHILLA Report Released Date/Time: Aug 28, 2024 09:07 AM Reporting Lab: [facility] [place] [facility] [address] [facility] [address] Performing Lab: [facility] [place] [facility] [address] [facility] [address] [facility] [place] [facility] CBC AND DIFF (AUTO) MONOCYTES/1 00 LEUKOCYTES IN BLOOD BY AUTOMATED COUNT 8.9 5.1 - 13.7 09/02 Specimen Type: BLOOD No comment entered. Ordering Provider: LAURIE CHINCHILLA Report Released Date/Time: Aug 28, 2024 09:07 AM Reporting Lab: [facility] [place] [facility] [address] [facility] [address] Performing Lab: [facility] [place] [facility] [address] [facility] [address] [facility] [place] [facility] CBC AND DIFF (AUTO) EOSINOPHILS /100 LEUKOCYTES IN BLOOD BY AUTOMATED COUNT 3.5 0.4 - 6.8 09/02 Specimen Type: BLOOD No comment entered. Ordering Provider: LAURIE CHINCHILLA Report Released Date/Time: Aug 28, 2024 09:07 AM Reporting Lab: [facility] [place] [facility] [address] [facility] [address] Performing Lab: [facility] [place] [facility] [address] [facility] [address] [facility] [place] [facility] CBC AND DIFF (AUTO) BASOPHILS/1 00 LEUKOCYTES IN BLOOD BY AUTOMATED COUNT 0.6 0.1 - 2.0 09/02 Specimen Type: BLOOD No comment entered. Ordering Provider: LAURIE CHINCHILLA Report Released Date/Time: Aug 28, 2024 09:07 AM Reporting Lab: [facility] [place] [facility] [address] [facility] [address] Performing Lab: [facility] [place] [facility] [address] [facility] [address] [facility] [place] [facility] CBC AND DIFF (AUTO) NEUTROPHILS [#/VOLUME] IN BLOOD BY AUTOMATED COUNT 6.13 10*3/u L 2.20 - 7.60 09/02 Specimen Type: BLOOD No comment entered. Ordering Provider: LAURIE CHINCHILLA Report Released Date/Time: Aug 28, 2024 09:07 AM Reporting Lab: [facility] [address] [facility] [address] Performing Lab[facility] [address] [facility] [address] [facility] CBC AND DIFF (AUTO) LYMPHOCYTES [#/VOLUME] IN BLOOD BY AUTOMATED COUNT 1.24 10*3/u L 1.00 - 3.20 09/02 Specimen Type: BLOOD No comment entered. Ordering Provider: LAURIE CHINCHILLA Report Released Date/Time: Aug 28, 2024 09:07 AM Reporting Lab: [facility] [address] [facility] [address] Performing Lab: [facility] [address] [facility] [address] [facility] CBC AND DIFF (AUTO) EOSINOPHILS [#/VOLUME] IN BLOOD BY AUTOMATED COUNT 0.30 10*3/u L 0.03 - 0.44 09/02 Specimen Type: BLOOD No comment entered. Ordering Provider: LAURIE CHINCHILLA Report Released Date/Time: Aug 28, 2024 09:07 AM Reporting Lab: [facility] [address] [facility] [address] Performing Lab: [facility] [address] [facility] [address] [facility] CBC AND DIFF (AUTO) BASOPHILS [#/VOLUME] IN BLOOD BY AUTOMATED COUNT 0.05 10*3/u L 0.01 - 0.13 09/02 Specimen Type: BLOOD No comment entered. Ordering Provider: LAURIE CHINCHILLA Report Released Date/Time: Aug 28, 2024 09:07 AM Reporting Lab: [facility] [address] [facility] [address] Performing Lab[facility] [address] [facility] [address] [facility] CBC AND DIFF (AUTO) IMMATURE GRANULOCYTE S/100 LEUKOCYTES IN BLOOD BY AUTOMATED COUNT 0.2 0.0 - 0.7 09/02 Specimen Type: BLOOD No comment entered. Ordering Provider: LAURIE CHINCHILLA Report Released Date/Time: Aug 28, 2024 09:07 AM Reporting Lab: [facility] [place] [address] [address] Performing Lab: [facility] [place] [address] [address] [facility] CBC AND DIFF (AUTO) IMMATURE GRANULOCYTE S [#/VOLUME] IN BLOOD 0.02 10*3/u L 0.00 - 0.06 09/02 Specimen Type: BLOOD No comment entered. Ordering Provider: LAURIE CHINCHILLA Report Released Date/Time: Aug 28, 2024 09:07 AM Reporting Lab: [facility] [place] [address] [address] Performing Lab: [facility] [place] [address] [address] [facility] CBC AND DIFF (AUTO) NRBC % 0.0 0.0 - 0.0 09/02 Specimen Type: BLOOD No comment entered. Ordering Provider: LAURIE CHINCHILLA Report Released Date/Time: Aug 28, 2024 09:07 AM Reporting Lab: [facility] [place] [address] [address] Performing Lab: [facility] [address] [facility] [address] [facility] CBC AND DIFF (AUTO) NRBC, ABS 0.00 10*3/u L 0.00 - 0.00 09/02 Specimen Type: BLOOD No comment entered. Ordering Provider: LAURIE CHINCHILLA Report Released Date/Time: Aug 28, 2024 09:07 AM Reporting Lab: [facility] [address] [facility] [address] Performing Lab: [facility] [address] [facility] [address] [facility] CALCIUM CALCIUM [MASS/VOLUM E] IN SERUM OR PLASMA 10.0 mg/dL 8.5 - 10.2 09/02 Specimen Type: SERUM No comment entered. Ordering Provider: LAURIE CHINCHILLA Report Released Date/Time: Aug 28, 2024 09:07 AM Reporting Lab: [facility] [address] [facility] [address] Performing Lab: [facility] [address] [facility] [address] [facility] [place] Vital Signs Combined list of inpatient and outpatient Vital Signs from Department of Defense and Veterans Affairs, ranging from 12 months to all on record, depending upon the facility. Vital Sign Value Date Comments Source SYSTOLIC BLOOD PRESSURE 130 06/26/2024 09:40:00 [facility] [place] [facility] DIASTOLIC BLOOD PRESSURE 74 06/26/2024 09:40:00 [facility] [place] [facility] PULSE 62 06/26/2024 09:40:00 [facility] [place] [facility] Encounters Combined list of: 1) Encounters [...] [facility] Encounter [id number] 11/28 [facility] En[facility] [id number] 01/31 [facility] [id number] 02/06 [facility] Encounter [id number] 02/21 [facility] CLEAN/INSP ECT JOSE PART DENT [id number] Diagnos is: ICD-10- CM K03.6 Deposit s [accret ions] on teeth BELYSHEV,N ADEZHDA 02/24 [facility] En[facility] [id number] 03/05 [facility] OFFICE O/P EST MOD 30 MIN [id number] Diagnos is: ICD-10- CM M54.17 Radicul opathy, lumbosa cral [facility] LAURIE SUAREZ 03/24 [facility] En[facility] [id number] 05/01 [facility] OFF/OP EST MAY X REQ PHY/QHP [id number] Diagnos is: ICD-10- CM I10 Essenti al (primar y) hyperte nsion PICH,FLORESITA H 06/26 [facility] En[facility] [id number] [facility] Encounter [id number] 08/27 [facility] [id number] 1.09/01 [facility] Encounter [id number] 1.09/01 [facility] CLEAN/INSP ECT JOSE PART DENT [id number] Diagnos is: ICD-10- CM K03.6 Deposit s [accret ions] on teeth BELYSHEV,N ADEZHDA 09/02 [facility] En[facility] [id number] 09/02 [facility] Encounter [id number] 10/03 [facility] Encounter [id number] 04/23 [facility] Social History Combined list of available smoking, tobacco, and other social history from Department of Defense and Veterans Affairs facilities. Social History Type Response Date Comment [facility] e Tobacco smoking status NJIS VA-TOBACCO NEVER USED 03/24/2024 [facility] History of tobacco use VA-TOBACCO FORMER USER 03/29/2023 [facility] History of tobacco use VA-TOBACCO FORMER USER 02/10/2022 [facility] History of tobacco use OR-TOBACCO QUIT 15 YRS OR MORE 01/14/2021 [facility] History of tobacco use LIFETIME NON-TOBACCO USER 06/22/2017 [facility] Plan of Care List of future care activities from Department of [facility] Affairs facilities. Additional future care activities may be listed in the Assessment and Plan section. Date/Time Care Activity Care Activity Detail Facili ty 06/08/2025 AMBULATORY - MEDICINE AMBULATORY - MEDICI [place] [facility]
--- NOTE | 2025-06-12 11:22 | MHC.OFFVIS ---
Vital Signs 06/12/25 11:27 Height 5 ft 5 in Weight 172 lb BMI 28.6 BP 134/60 Blood Pressure Location Rt brachial Position Sitting Pulse 63 Pulse Source Pulse Oximeter Pulse Oximetry (%) 97 Oxygen Delivery Method Room Air Intake Visit Reasons: Spinal stenosis, lumbar Intake Note: Pain today when walking 10/10 sitting 0/10 Medical Care Evaluation Specialist Required: No Accompanied by: Self / Same As Patient Allergies oxycodone (From PERCOCET) Allergy (Severe, Verified 06/12/25 11:26) headache/diaphoresis/nausea bee pollen (bee stings) Allergy (Intermediate, Verified 06/12/25 11:26) Hives HPI Comments Details: The patient is a very pleasant 79-year-old male presenting with chronic low back pain and associated leg pain. He has a history of lumbar fusion from L2 to L5 performed by Dr. Baltazar in 2023 due to lumbar scoliosis and chronic low back pain. In 2022, he underwent L3-L4 and L4-L5 laminectomy, partial facetectomy, and foraminotomy for spinal stenosis. Patient reports prior to back surgeries, he underwent multiple back injections and physical therapy with minimal relief at [facility]. Denies any recent trauma, injury or falls. The patient reports significant leg, back, and feet pain, only when walking, which he rates as 9-10/10, described as tingling, stinging, and aching. He has been taking naproxen with minimal relief. His pain is at 0/10 when he is sitting or sleeping. Reports pain significantly affects his daily activities, functioning and mobility. He reports tightness and cramping pain in his calves as soon as he starts walking. Despite pain, he continues to stay physically active and enjoys swimming. An EMG conducted in November 2024 showed absent peroneal nerve conduction and left L5-S1 radiculopathy. He was told by Neurosurgeon that no additional surgical intervention to alleviate his leg symptoms is feasible due to potential longstanding compression. The patient has a history of severe atherosclerotic disease and peripheral artery disease, with claudication symptoms when walking. He has been advised to maintain a healthy diet and exercise, with follow-up scheduled in three months with Vascular provider. 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 He recently underwent ct scan guided angio abdominal aorta runoff which showed moderately severe atherosclerotic disease with mixed inflow and outflow disease. Patient is concerned why he did not undergo intervention for this. I encourage him to follow up with Dr. Bear. Patient notes that he does not do well under anesthesia due to post-op nausea and always has to receive scopolamine patch pre-operatively. Former smoker, currently consumes beer and denies recreational drug use. - Onset: Chronic, ongoing, only on exertion Just when I walk - Quality: Tingling, stinging, aching, stinging, cramping - Severity: 9/10 only when walking - Location: Low back, legs, feet - Exacerbating factors: Walking, standing, movements - Relieving factors: Resting, sleeping, staying off feet - Affect: Pain impacts mobility and daily activities - Analgesia: Currently using naproxen with minimal relief, pain rated 9/10 - Adverse Effects: None reported - Activities of Daily Living: Pain affects walking and daily chores, but patient remains active - Aberrant Drug Related Behaviors: None reported Past Spine Procedures: 10/24/23: L3-4, L4-5 Laminotomy, Partial facetectomy and foraminotomy with use of microscope 09/17/24: L2-5 transkambin lumbar fusion Oswestry Low Back Pain Disability Score=8 PFSH Medical History (Updated 06/12/25 @ 12:39 by TAI Maki) Bladder cancer Ascending aorta dilatation PONV (postoperative nausea and vomiting) Pulmonary emphysema Dyspnea on exertion COPD (chronic obstructive pulmonary disease) CAD (coronary artery disease) HTN (hypertension) Hyperlipidemia PAD (peripheral artery disease) Hypercholesteremia Surgical History (Updated 06/12/25 @ 12:40 by TAI Maki) History of lumbar fusion Hx of bilateral cataract extraction Hx of cystoscopy History of back surgery H/O cardiac catheterization Stented coronary artery Hx of colonoscopy Hx of inguinal hernia repair Hx of appendectomy History of hip surgery History of femoral angiogram Family History Father CVD (cardiovascular disease) Mother Lung cancer Social History Household Members: Spouse Housing: House Are you a primary rental boats caretaker to a significant other at home: No Do you presently have visiting nurse or other home services: No Alcohol intake: current Alcohol intake frequency: a few times a month Alcohol type: beer Patient Tobacco Use Status: Former Tobacco user Tobacco use type: Cigarette Years Smoked: 25 Second Hand Smoke Exposure: No service: Yes Review of Systems Const Details: - Musculoskeletal: Reports chronic low back pain, leg pain, and foot pain - Neurological: Reports numbness in feet, especially on the left side; denies bladder or bowel dysfunction or saddle anesthesia - Cardiovascular: Reports claudication symptoms when walking All systems reviewed & are unremarkable except as noted in HPI and below Physical Exam General: Appears afebrile. Alert and oriented. Mood and affect appropriate. Follows and participates in conversation appropriately. Respiratory effort is unlabored. No cough. Able to transition from sit to stand unassisted. Ambulates with bilaterally normal heel strike and toe off. General: Yes no CVA tenderness Back/Spine/Pelvis Other: Limited lumbar ROM due to pain. Lumbar flexion and extension reproduces mild pain. Demonstrates 5/5 strength of quadriceps bilaterally as well as flexion/dorsiflexion of bilateral feet against resistance. 1+ pedal pulses bilaterally. Straight leg rise with dorsiflexion negative bilaterally. +1 patellar and absent left and diminished right achilles reflexes bilaterally. Facet loading test positive bilaterally. Jacquelin sign, Dev?s and Stinchfield tests are negative bilaterally. No groin pain with I/E hip rotations. Mild TTP to right GTB. Valsalva maneuver negative. Back: no CVA tenderness Cervical Spine: cervical ROM normal, No cervical muscular tenderness and No Cervical spine tenderness Thoracic/Lumbar Spine: thoracic and lumbar spine normal to inspection, Thoracic/lumbar spine scar(s), Lasegue's sign negative, straight leg raise negative bilaterally, pain with thoraco-lumbar ROM (mild), paraspinal muscle tenderness, No thoracic spinal tenderness and No lumbar spinal tenderness Sacroiliac joints: bilaterally nontender Extrem General: Yes capillary refill normal, Yes no pedal edema, Yes calf tenderness (bilateral with walking), No clubbing and No cyanosis Results Reviewed Results Reviewed: MR LUMBAR SPINE WITHOUT AND WITH CONTRAST 11/19/24 CLINICAL INFORMATION: Status post lumbar fusion, 2 months ago. Numbness, left foot. COMPARISON: MRI dated May 27, 2024. TECHNIQUE: MRI of the lumbar spine was obtained using routine sequences with and without contrast. Intravenous contrast: Gadavist 8 mL. No reported immediate complications FINDINGS: Submitted for interpretation on November 24, 2024. Last rib-bearing vertebra labeled T12. Paramagnetic field distortion secondary to metallic hardware, L2 L5 levels. Dextroconvex rotoscoliosis apex at L2-3. No abnormal enhancement within the neural elements of the thecal sac. No abnormal enhancement in the prevertebral compartment. No bone marrow STIR signal abnormality. Multilevel disc desiccation and marginal osteophyte formation, L1-S1. There is a 6 mm anterolisthesis at L5-S1. Grade 1 retrolisthesis, L1-2. Intervertebral discs spacers placement, L2-3, L3-4 and L4-5. Conus medullaris ends at inferior endplate of T12 with normal signal. There is no grouping or clumping of the neural elements of the thecal sac. There is no empty sac sign. T12-L1: No disc herniation. No neuroforamina stenosis. L1-2: Broad-based disc bulging. Hypertrophy of ligamentum flavum and the facet joints. Decreased diameter of the thecal sac and the neural foramina. L2-3: Postsurgical changes. Facet joint hypertrophy. Hypertrophy of the right ligamentum flavum. Decreased AP diameter of the thecal sac and the neural foramina. L3-4: Post surgical changes. Bilateral neuroforamina narrowing, left greater than the right side likely encroaching the neural elements. No gross central spinal canal stenosis. L4-5: Postsurgical changes. Decreased AP diameter of the thecal sac and the neural foramina likely encroaching the neural elements. L5-S1: Grade 1 anterolisthesis resulting in bilateral neuroforamina stenosis encroaching the exiting nerve roots. Reduced AP diameter of the thecal sac. No prevertebral compartment hematoma, mass or fluid collection. Asymmetric volume loss right psoas iliac muscle. Multifocal cystic lesions in the right kidney. Numerous diverticula, sigmoid colon. IMPRESSION: Multilevel lumbar spondylosis resulting in central spinal canal and bilateral neuroforamina stenosis at L4-5 and bilateral neuroforamina stenosis at L1-2, L2-3 and L3-4 levels encroaching the exiting nerve roots. Grade 1 anterolisthesis L5-S1, stable. Grade 1 retrolisthesis L1-2. No arachnoiditis by imaging. No abnormal enhancement.. XRAY LUMBOSACRAL SPINE 11/17/24 CLINICAL INFORMATION: Spondylolisthesis, lumbar region. COMPARISON: X-ray dated October 02, 2024. TECHNIQUE: Lateral views in neutral, flexion and extension position. AP view. FINDINGS: Metallic hardware placed with the transverse pedicle screws from L2 to L5, bilaterally. Status post intervertebral disc spacer placement at L2-3, L3-4 and L4-5 levels. Dextroconvex curvature of the lumbar spine. No gross malalignment during flexion and/or extension position. Metallic prosthesis, right hip no fully included. Vascular complications, thoracic and abdominal aorta and iliac arteries. IMPRESSION: No acute fracture or instability. NE electromyogram (EMG); NE nerve conduction velocity 11/27/24 FINDINGS: Left peroneal nerve showed absent response. Left tibial nerve showed very small/almost absent responses, with prolonged distal latency and slow conduction velocity. Right peroneal nerve showed prolonged distal latency, small amplitude and slow conduction velocity across the fibular neck. Right tibial motor nerve showed prolonged distal latency, small amplitude and slow conduction velocity. Bilateral sural nerves showed absent response. Concentric needle EMG was performed in selected muscles of the bilateral lower extremity. Study revealed signs of electric abnormalities as shown in the table above. Left peroneus longus, AH, biceps femoris short head, gluteus medius muscles showed increased insertional activity, PSWs and fibrillations. IMPRESSION: 1. This is an abnormal study. 2. There is electrodiagnostic evidence for ongoing left L5-S1 radiculopathy based on active denervation seen on needle EMG. 3. There is no electrodiagnostic evidence for sciatic neuropathy or lumbosacral plexopathy. 4. Possible underlying sensorimotor peripheral neuropathy. CLINICAL COMMENT: 1. Active denervation seen on L5-S1 innervated muscles on left lower extremity signifying left L5-S1 radiculopathy. 2. Abnormal nerve conduction results should be interpreted with caution. For example, it is common to see absent sural responses and slow conduction velocities with advanced age. Results are not necessarily considered abnormal without other confirmative data for peripheral neuropathy. Patient denies any past history of diabetes or other known risk factors for peripheral neuropathy. CT angio abd aorta runoff 04/17/25 CLINICAL HISTORY: I73.9 - Peripheral vascular disease, unspecified CT angiography abdomen and pelvis with bilateral lower extremity runoff using IV contrast. 3-D post processing. Comparison: None Findings: Vascular: The aorta demonstrates severe soft and calcified atherosclerotic disease without dissection or aneurysm. Renal arteries exhibit moderate atherosclerotic disease without significant stenosis. The celiac artery and superior mesenteric artery are widely patent. The inferior mesenteric artery is also patent. Right lower extremity: Severe atherosclerotic disease with mild and moderate tandem stenosis involving the common, internal and external iliac arteries. The right common femoral artery is widely patent. The profunda femoral artery demonstrates severe atherosclerotic disease with moderate stenosis proximally. The superficial femoral artery demonstrates severe atherosclerotic disease and moderate and moderately severe stenosis. The right SFA stents appear patent. Severe atherosclerotic disease of the popliteal artery. There is somewhat attenuated but patent three-vessel runoff to the right foot. Left lower extremity Severe atherosclerotic disease of the common, internal and external iliac arteries, with mild and moderate tandem stenosis. The left common femoral artery is patent. The profunda femoral artery is widely patent. Severe atherosclerotic disease of the superficial femoral artery with tandem severe stenosis. The popliteal artery demonstrates moderately severe stenosis. Despite this, there is attenuated three-vessel runoff to the left foot. Nonvascular: Lung bases demonstrate mild chronic changes. The liver, gallbladder, spleen, adrenal glands and pancreas are unremarkable. Kidneys demonstrate no suspicious lesion or obstructive uropathy. Bladder is decompressed. The prostate gland is enlarged. Extensive diverticulosis without evidence of diverticulitis. No acute osseous finding. Impression: Moderately severe atherosclerotic disease with mixed inflow and outflow disease as detailed. Despite this there is attenuated three-vessel runoff to both feet. Several incidental findings. Assessment & Plan Assessment & Plan (1) Claudication of both lower extremities: Code(s): I73.9 - Peripheral vascular disease, unspecified Category: Medical (2) Lumbar post-laminectomy syndrome: Code(s): M96.1 - Postlaminectomy syndrome, not elsewhere classified Category: Medical (3) Lumbar radiculopathy: Code(s): M54.16 - Radiculopathy, lumbar region Category: Medical (4) Lumbosacral spondylosis: Code(s): M47.817 - Spondylosis without myelopathy or radiculopathy, lumbosacral region Category: Medical (5) Scoliosis due to degenerative disease of spine in adult patient: Code(s): M41.50 - Other secondary scoliosis, site unspecified Category: Medical (6) History of lumbar fusion: Code(s): Z98.1 - Arthrodesis status Category: Surgical Plan A diagnostic and therapeutic Caudal STEVE with catheter injection with local, oral Ativan and fluoroscopy is planned to determine the contribution of vascular versus radiculopathy-related pain, with follow-up to assess effectiveness. We also discussed a trial of spinal cord stimulation to manage chronic back and leg pain, with a psychological evaluation required prior to the procedure due to insurance requirements. Information pamphlets were provided to patient. Follow up with Dr. Bear in 3 months as planned or sooner to reassess vascular status. Coordination with Cardiology and chin strap sewer will continue to manage coronary artery disease and peripheral artery disease, ensuring no contraindications for planned interventions. Patient is on low dose aspirin and cannot recall if he is on blood thinners. All questions and concerns have been answered and patient agreed with the plan. Follow up after injection and sooner as needed. Patient was informed and verbally consented to the use of an ambient scribe for clinic note documentation during this visit. Coding Level of Care Code New Pt Level 4 (87484) Diagnoses Claudication of both lower extremities I73.9 Lumbar post-laminectomy syndrome M96.1 Lumbar radiculopathy M54.16 Lumbosacral spondylosis M47.817 Scoliosis due to degenerative disease of spine in adult patient M41.50 History of lumbar fusion Z98.1
--- OUTSIDE RECORDS SUMMARY | 2025-06-12 11:25 | XMS_ITS | Patient Health Record ---
Author Organization Trevon Colby III, MD Address [address] [place] [address] [place] [address] Care Team Providers Care Control Room Tender Name Role Phone Trevon Colby Primary Care [...] ff Reviewed date:07/27/2024 05:58:52 AM Interpretation: Performing Lab:[facility], [address] [place] [phone] Notes/Report: White Blood Count 5.0 4.8-10.8 X10*3/uL [...] NRBC Abs Auto 0.000 0.0-0.012 X10*3/uL Comprehensive Manning. Panel Fa st Reviewed date:07/27/2024 05:58:52 AM Interpretation: Performing Lab:[facility], [address] [place] [phone] Notes/Report: Sodium 137 135-145 mmol/L Potassium 4.8 3.3-5.1 mmol/L Chloride 106 96-108 mmol/L Carbon Dioxide 26 22-29 mmol/L Anion Gap 10 12-20 Blood Urea Nitrogen 32 9-16 mg/dL Creatinine 1.48 0.5-1.4 mg/dL Estimated Glomerular Filt Rate 46 NOTE: For -Australian individuals, multiply the result by 1.210. Chronic [...] Panel Reviewed date:07/27/2024 05:58:52 AM Interpretation: Performing Lab:[facility], [address] [place] [phone] Notes/Report: Triglycerides 60 <150 mg/dL Desirable Triglyceride: [...] Antigen Reviewed date:07/27/2024 05:58:52 AM Interpretation: Performing Lab:[facility], [address] [place] [phone] Notes/Report: Prostate Specific Antigen 2.80 <0.05-4.0 ng/mL PSA methodology: Chavez Alinity i Chemiluminescent Microparticle Immunoassay (CMIA) Type and Screen Reviewed date:09/07/2024 06:31:42 AM Interpretation: Performing Lab:[address] [address] Notes/Report: WITNESSED BY [facility]SING: Call Blood Bank (ext. [phone]) to band patient on admission. Type and Screen in effect until 2300 on 09-17-2024 Spec expiration changed by SHOBHA on 09/03/24 Reason: PAT SPEC 09/17/24 Blood Type OP Antibody Screen NEGATIVE Glucose, Whole Blood Reviewed date:09/18/2024 09:17:25 AM Interpretation: Performing Lab:[facility], [address] [place] [phone] Notes/Report: Glucose, Whole Blood 178 60-115 mg/dL METER # : [id number] FL guidance in OR Reviewed date:09/23/2024 08:42:28 AM Interpretation: Performing Lab: Notes/Report: [address] [address] Fluoroscopy Report Signed Patient: Spencer Price MR#: [id number] : 1945 Acct:[id number] Age/Sex: 79 / M ADM Date: 09/17/24 Loc: HO.S3 344-[address]: Vikram RUVALCABA Ordering Physician: George Baltazar MD, PhD Date of Service: 09/17/24 Procedure(s): FL guidance in OR Accession Number(s): [id number] cc: Trevon Colby MD; George Baltazar MD, [...] 09/18/24 1240 DD/ 0740 TD/TT: 09/17/24 1025 Roll Skinner: KAIDEN [address] [address] Fluoroscopy Report Signed Patient: Spencer Price MR#: [id number] : 1945 Acct:[id number] Age/Sex: 79 / M ADM Date: 09/17/24 Loc: HO.S3 344-[address]: Vikram RUVALCABA Ordering Physician: George Baltazar MD, PhD Date of Service: 09/17/24 Procedure(s): FL guidance in OR Accession Number(s): [id number] cc: Trevon Colby MD; George Baltazar MD, [...] Onofre MD 09/18/2024 12:40 PM [facility] Workstation: [employer] Dictated By: Gillian Onofre MD Signed By: <Electronically signed by Gillian Onofre MD in OV> 09/18/24 1240 DD/ 0740 TD/TT: 09/17/24 1025 Roll Skinner: PN Complete Blood Count Auto Di ff Reviewed date:09/23/2024 08:42:28 AM Interpretation: Performing Lab:[facility], [address] [place] [phone] Notes/Report: White Blood Count 11.7 4.8-10.8 X10*3/uL [...] date:01/19/2025 08:16:21 PM Interpretation: Performing Lab: Notes/Report: [place] [address] Ultrasound Report Signed Patient: Spencer Price MR#: [id number] : 1945 Acct:[id number] Age/Sex: 79 / M ADM Date: 11/06/24 Loc: . Attending Dr: Rusty Bear MD Ordering Physician: Rusty Bear MD Date of Service: 11/06/24 Procedure(s): US arterial duplex BI w/ NA Accession Number(s): [id number] cc: Trevon Colby MD; Rusty Bear MD [...] Stent from the proximal to mid SFA: [place] artery proximal to stent: 97 cm/s Proximal stent: 142 cm/s Mid stent: 119 cm/s Distal stent: 172 cm/s [place] artery distal to stent: 154 cm/s Superficial femoral artery (mid): 154 cm/s. Stent from mid to distal SFA: [place] artery proximal to stent: 145 cm/s Proximal stent: 136 cm/s Mid stent: 121 cm/s Distal stent: 146 cm/s [place] artery distal to stent: 94 cm/s Diastolic [...] 11/24/24 1237 DD/ 1315 TD/TT: 11/06/24 1400 Roll Skinner: [address] [address] Ultrasound Report Signed Patient: Spencer Price MR#: [id number] : 1945 Acct:[id number] Age/Sex: 79 / M ADM Date: 11/06/24 Loc: HO.US Attending Dr: Rusty Bear MD Ordering Physician: Rusty Bear MD Date of Service: 11/06/24 Procedure(s): US arterial duplex BI w/ NA Accession Number(s): [id number] cc: Trevon Colby MD; Rusty Bear MD [...] from the proxi mal to mid SFA: [place] artery proxim al to stent: 97 cm/s Proximal stent: 142 cm/s Mid stent: 119 cm/s Distal stent: 172 cm/s [place] artery distal to stent: 154 cm/s Superficial femoral artery (mid): 154 cm/s. Stent from mid to distal SFA: [place] artery proxim al to stent: 145 cm/s Proximal stent: 136 cm/s Mid stent: 121 cm/s Distal stent: 146 cm/s [place] artery distal to stent: 94 cm/s Diastolic [...] 11/24/24 1237 DD/ 1315 TD/TT: 11/06/24 1400 Roll Skinner: XR lumbar spine 4V min Reviewed date:01/19/2025 08:16:21 PM Interpretation: Performing Lab: Notes/Report: [facility] [address] [place] [address] XRay Report Signed Patient: Spencer Price MR#: [id number] : 1945 Acct:[id number] Age/Sex: 79 / M ADM Date: 11/17/24 Loc: HO.HOSX Attending Dr: Vikram RUVALCABA Ordering Physician: Vikram Grant Date of Service: 11/17/24 Procedure(s): XR lumbar spine 4V min Accession Number(s): [id number] cc: Trevon Colby MD; Vikram Grant . [...] 11/19/24 1305 DD/ 0855 TD/TT: 11/17/24 0900 Roll Skinner: [facility] [address] [place] [address] XRay Report Signed Patient: Spencer Price MR#: [id number] : 1945 Acct:[id number] Age/Sex: 79 / M ADM Date: 11/17/24 Loc: MELVIN Attending Dr: Vikram RUVALCABA Ordering Physician: Vikram Grant Date of Service: 11/17/24 Procedure(s): XR lum bar spine 4V min Accession Number(s): [id number] cc: Trevon Colby MD; Vikram Grant . [...] 01:05 PM [facility] Dictated By: Akshat Rivas MD Signed By: <Electronically signed by Akshat Jordan MD in OV> 11/19/24 1305 DD/ 0855 TD/TT: 11/17/24 0900 Roll Skinner: MR lumbar spine wo/w con Reviewed date:01/19/2025 08:16:21 PM Interpretation: Performing Lab: Notes/Report: [address] [address] Magnetic Resonance Report Signed Patient: Spencer Price MR#: [id number] : 1945 Acct:[id number] Age/Sex: 79 / M ADM Date: 11/19/24 Loc: HO.MRI Attending Dr: Vikram RUVALCABA Ordering Physician: Vikram Grant Date of Service: 11/19/24 Procedure(s): MR lumbar spine wo/w con Accession Number(s): [id number] cc: Trevon Colby MD; Vikram Grant EXAMINATION: [...] 11/24/24 0953 DD/ 1220 TD/TT: 11/19/24 1312 Roll Skinner: [place] [address] Magnetic Resonance Report Signed Patient: Spencer Price MR#: [id number] : 1945 Acct:[id number] Age/Sex: 79 / M ADM Date: 11/19/24 Loc: HO.MRI Attending Dr: Vikram RUVALCABA Ordering Physician: Vikram Grant Date of Service: 11/19/24 Procedure(s): MR lum bar spine wo/w con Accession Number(s): [id number] cc: Trevon Colby MD; Vikram Grant EXAMINATION: [...] 11/24/24 0953 DD/ 1220 TD/TT: 11/19/24 1312 Roll Skinner: Complete Blood Count Auto Di ff Reviewed date:02/04/2025 08:51:44 AM Interpretation: Performing Lab:[facility], [address] [place] [phone] Notes/Report: White Blood Count 5.0 4.8-10.8 X10*3/uL [...] NRBC Abs Auto 0.000 0.0-0.012 X10*3/uL Comprehensive Manning. Panel Fa st Reviewed date:02/04/2025 08:51:44 AM Interpretation: Performing Lab:[facility], [address] [place] [phone] Notes/Report: Sodium 137 135-145 mmol/L Potassium 4.6 [...] Panel Reviewed date:02/04/2025 08:51:45 AM Interpretation: Performing Lab:[address] [address] Notes/Report: Triglycerides 56 <150 mg/dL Desirable Triglyceride: [...] Antigen Reviewed date:02/04/2025 08:51:45 AM Interpretation: Performing Lab:[address] [address] Notes/Report: Prostate Specific Antigen 2.83 <0.05-4.0 ng/mL PSA methodology: Chavez Alinity i Chemiluminescent Microparticle Immunoassay (CMIA) Blood Urea Nitrogen Reviewed date:05/07/2025 04:33:18 AM Interpretation: Performing Lab:[address] [address] Notes/Report: Blood Urea Nitrogen 32 9-16 mg/dL Creatinine Reviewed date:05/07/2025 04:33:18 AM Interpretation: Performing Lab:[address] [address] Notes/Report: Creatinine 1.50 0.5-1.4 mg/dL Estimated Glomerular Filt Rate 45 Chronic Kidney Disease: Estimated GFR < 60 mL/min/1.73m2 Severe Kidney Disease: Estimated GFR < 15 mL/min/1.73m2 CT angio abd aorta runoff Reviewed date:05/07/2025 04:33:18 AM Interpretation: Performing Lab: Notes/Report: [facility] [address] [place] [address] CT Scan Report Signed Patient: Spencer Price MR#: [id number] : 1945 Acct:[id number] Age/Sex: 79 / M ADM Date: 04/16/25 Loc: HO.CT Attending Dr: Rusty Bear MD Ordering Physician: Rusty Bear MD Date of Service: 04/16/25 Procedure(s): CT angio abd aorta runoff Accession Number(s): [id number] cc: Trevon Colby MD; Rusty Bear MD Report Number: [id number]: Total DLP = 787.00 mGy-cm CLINICAL HISTORY: [...] in OV> 04/17/25848 DD/ 8 TD/TT: 04/17/25848 Roll Skinner: [place] [address] CT Scan Report Signed Patient: Spencer Price MR#: [id number] : 1945 Acct:[id number] Age/Sex: 79 / M ADM Date: 04/16/25 Loc: HO.CT Attending Dr: Rusty Bear MD Ordering Physician: Rusty Bear MD Date of Service: 04/16/25 Procedure(s): CT ang io abd aorta runoff Accession Number(s): [id number] cc: Trevon Colby MD; Rusty Bear MD Report Number: [id number]: Total DLP = 787.00 mGy-cm CLINICAL HISTORY: [...] MD in OV> 04/17/2549 DD/ 8 TD/TT: 04/17/2549 Roll Skinner: Complete Blood Count Auto Di ff Reviewed date:05/07/2025 04:33:18 AM Interpretation: Performing Lab:[facility], [address] [place] [address] Notes/Report: White Blood Count 4.7 4.8-10.8 X10*3/uL [...] NRBC Abs Auto 0.000 0.0-0.012 X10*3/uL Comprehensive Manning. Panel Fa st Reviewed date:05/07/2025 04:33:18 AM Interpretation: Performing Lab:[facility], [address] [place] [address] Notes/Report: Sodium 140 135-145 mmol/L Potassium 5.1 [...] Panel Reviewed date:05/07/2025 04:33:18 AM Interpretation: Performing Lab:[address] [address] Notes/Report: Triglycerides 46 <150 mg/dL Desirable Triglyceride: [...] ff Reviewed date:05/07/2025 04:33:18 AM Interpretation: Performing Lab:[facility], [address] [place] [address] Notes/Report: White Blood Count 5.2 4.8-10.8 X10*3/uL [...] Nitrogen Reviewed date:05/07/2025 04:33:18 AM Interpretation: Performing Lab:[facility], [address] [place] [address] Notes/Report: Blood Urea Nitrogen 46 9-16 mg/dL Creatinine Reviewed date:05/07/2025 04:33:18 AM Interpretation: Performing Lab:[facility], [address] [place] [phone] Notes/Report: Creatinine 1.66 0.5-1.4 mg/dL Creatinine Clr [...] Problem Status W/U Status Risk Notes Problem 5084641 Former smoker (Z87.891) Active confirmed He is highly motivated not to smoke and we discussed means of preserving abstinence in times of stress. Problem 23728309 Hyperlipidemia (E78.5) Active confirmed His total cholesterol level is 104. His lipids are in near target range. No change in his medications was made. His lipids were reviewed. He will have fasting lipid profile in the near future. Problem 923804931 Overweight (E66.3) Active confirmed His body mass [...] weight maintenance diet low in cholesterol. Problem 569853747 Tubular adenoma (D36.9) Active confirmed He will continue to undergo colonoscopies every 5 years. Problem 01076818 Carpal tunnel syndrome, right upper limb (G56.01) Active confirmed He has seen the orthopedic surgeon and will undergo surgery for carpal tunnel syndrome on the right later this month. He is cleared for surgery at this time. Problem 11934283 Coronary artery disease (I25.10) Active confirmed He has had no recent palpitations, angina, syncope or nausea. He has been compliant with all of his medications. He saw his regulatory compliance coordinator this month who found him to be stable and gave him an appointment to return in one year. Problem 297621722 BPH (benign prostatic hyperplasia) (N40.0) Active confirmed He arises from sleep once or twice a night to urinate. We have discussed lifestyle modifications he could make to reduce nocturia. Problem 720289496 Peripheral vascular disease (I73.9) Active confirmed He [...] and was thought to be stable. 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 He has an upcoming appointment with a neurosurgeon at the end of this month. Problem 905743298 Erectile dysfunction (N52.9) Active confirmed This is well compensated with medications. Problem 910345607 Osteoarthritis of right hip (M16.11) Active confirmed . He describes a hip pain as mild today. Problem 09483194 Spinal stenosis, lumbar (M48.06) Active confirmed The lumbar fusiontook place without side effects or incidents. He notices a substantial improvement in his back pain. The wound is well-healed. He reports much less pain with ambulation. 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 The discomfort has resolved. Problem Emphysema lung (J43.9) Active confirmed He is no longer smoking. He is short of breath with sustained exertion but is comfortable breathing room air at rest. Problem 235393917 History of bladder cancer (Z85.51) Active confirmed There was no sign of cancer on his exam today. He recently had a cystoscopy, March 2024 which showed no gross recurrence. Surveillance will continue Problem 787972662 Stage 2 chronic kidney disease (N18.2) Active confirmed His GFR has improved substantially since his last blood test. His urinary tract is currently asymptomatic.H is glomerular filtration rate has fallen from 54 down to 46. I have encouraged him to stay hydrated. Problem 8963941434936 Recurrent epistaxis (R04.0) Active confirmed He will continue the use of aspirin. He was instructed on techniques to stop bleeding. He was instructed to go to the emergency room if bleeding does not stop. If this continues he will see ENT for definitive treatment. 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) [...] Provider Diagnosis Trevon Colby III, MD [address] [place] [address] [place] [phone] 08/01/2024 Trevon Colby Hyperlipidemia E78.5 ; Osteoarthritis of right hip M16.11 ; Overweight E66.3 ; Spinal stenosis, lumbar M48.06 ; Carpal tunnel syndrome, right upper limb G56.01 ; Peripheral vascular disease I73.9 ; History of bladder cancer Z85.51 and Stage 2 chronic kidney disease N18.2 Trevon Colby III, MD [address] [place] [address] [place] [phone] 10/13/2024 Trevon Colby Hyperlipidemia E78.5 ; Spinal stenosis, lumbar M48.06 ; Overweight E66.3 ; BPH (benign prostatic hyperplasia) N40.0 ; Former smoker Z87.891 ; History of bladder cancer Z85.51 ; Peripheral vascular disease I73.9 ; Osteoarthritis of right hip M16.11 ; Coronary artery disease I25.10 ; Stage 2 chronic kidney disease N18.2 and Emphysema lung J43.9 Trevon Colby III, MD [address] [place] [address] [place] [phone] 02/11/2025 Trevon Colby Injury of left peron eal nerve, sequela S84.12XS ; Hyperlipidemia E78.5 ; Stage 2 chronic kidney disease N18.2 ; Osteoarthritis of right hip M16.11 ; Overweight E66.3 ; Spinal stenosis, lumbar M48.06 ; BPH (benign prostatic hyperplasia) N40.0 ; Former smoker Z87.891 and Peripheral vascular disease I73.9 Trevon Colby III, MD [address] [place] [address] [place] [phone] 04/13/2025 Trevon Colby Hyperlipidemia E78.5 ; Recurrent epistaxis R04.0 ; Osteoarthritis of right hip M16.11 ; Spinal stenosis, lumbar M48.06 ; Former smoker Z87.891 and Peripheral vascular disease I73.9 Trevon Colby III, MD [address] [place] [address] [place] [phone] 05/05/2025 Trevon Colby Hyperlipidemia E78.5 ; Peripheral [...] Emphysema lung J43.9 Trevon Colby III, MD [address] [place] [address] [place] [phone] 11/28/2024 Trevon Colby Hyperlipidemia E78.5 Trevon Colby III, MD [address] [place] [address] [place] [phone] 12/12/2024 Trevon Colby Hyperlipidemia E78.5 Trevon Colby III, MD [address] [place] [address] [place] [phone] 01/19/2025 Trevon Colby III, MD [address] [place] [address] [place] [phone] 01/20/2025 Trevon Colby III, MD [address] [place] [address] [place] [phone] 05/07/2025 Trevon Colby Assessments Encounter Date Diagnosis [...] all of his medications. He saw his regulatory compliance coordinator this month who found him to be [...] all of his medications. He saw his regulatory compliance coordinator this month who found him to be [...] Details Provider Name:Trevon Colby, 08/06/2025 09:45:00 AM, [address] [place] [address] [address], [place], [phone], Provider Name:Trevon Colby, 05/06/2026 09:30:00 AM, [address] [place] [address] [address], [place], [phone], Insurance Providers Payer Name Payer Address Payer Phone Subscriber Number Group Number Insured Name Patient Relationship to Insured Coverage Start Date Coverage End Date [facility] [address] [facility] [address] [facility] [place] [phone] [id number] Spencer Price Self - patient is the insured MEDICARE NGS [address] [place] [phone] [id number] DarylSpencer meza Self - patient is the insured Medical [...] 17 Surgical History Surgery Date(Month/Year) L3-L5 [place] [facility] [place]/2024 Left femoral endarterectomy, right superficial Femoral artery atherectomy and angioplasty 06/2018 Right popliteal and peroneal artery athe rectomy and angioplasty 12/2017 Angioplasty right peroneal and popliteal artery 04/13/2021 Lumbar L3-5 Laminectomy, par tial facetectomy, foraminotomy, [facility], Dr Baltazar 10/25/[address] Bear 04/2021 carpal tunnel right hand 10/2019 carpal tunnel surgery right hand, Instru m 04/2018 right common femoral artery angioplasty 2016 left iliofemoral endarterectomy 2016 cardiac catheterization with stent insertion, inferior wall ischemia, 99% right coronary artery stenosis 2015 colonoscopy, negative 2011 colonoscopy, negative 2006 colonoscopy, tubular adenoma 2002 Cataract surgery both eyes 2010 Hip replacement right appendectomy herniorrhaphy Hospitalization History Reason Date(Month/Year) Back surgery on september 1709/2024
--- OUTSIDE RECORDS SUMMARY | 2025-06-12 11:25 | XMS_ITS | Encounter Summary ---
Author Organization [facility] Address [address] [place] [address] Care Team Providers Care Interline Clerk Name Role Phone Trevon Colby MD Primary Care Provider Lou aiken Encounter Details Date Type Department Care Team Description 12/09/2019 Telephone Vascular Surgery - [place] [address] [place] [address] Simone Goldman MD Social History Tobacco Use Types Packs/Day Years Used Date Smoking Tobacco: Former Smokeless Tobacco: Never Comments:quit 21 years ago Sex Assigned at Date Recorded Not on file documented as of this encounter Miscellaneous Notes * Telephone Encounter - Joaquín Lucas - 12/09/2019 4:41 PM EST Faxed order to [facility]. [phone] * Telephone Encounter - Joaquín Lucas - 12/09/2019 4:26 PM EST Pt called and would like his carotid stenosis study in [facility]. Pt will call back with hospital fax number. documented in this encounter Plan of Treatment Not on file documented as of this encounter Visit Diagnoses Not on filedocumented in this encounter Care Teams Interline Clerk Relationship Specialty Start Date End Date Trevon Colby MD PCP - General Oncology/Hematology 01/13/19 documented as of this encounter
[2025-06-12 11:27] VITALS: BP 134/60; PULSE 63; O2SAT 97; BMI 28.6
== END 2025-06-12 11:58 | disposition home or self-care (01) ==
LOC: HO.PMC 11:21
PROVIDERS: PCP Internal Medicine Medical Oncology; Visit Provider Nurse Practitioner Family
DX: I73.9 Peripheral vascular disease, unspecified (principal); M96.1 Postlaminectomy syndrome, not elsewhere classified; M54.16 Radiculopathy, lumbar region; M47.817 Spondylosis without myelopathy or radiculopathy, lumbosacral region; M41.50 Other secondary scoliosis, site unspecified; Z98.1 Arthrodesis status
CPT/HCPCS: 99204

== ENCOUNTER → 2025-06-12 11:21 | Outpatient (BNVA) | payer MEDICARE, SELFPAY | PROVIDERS: PCP Internal Medicine Medical Oncology; Visit Provider Nurse Practitioner Family | DX: M47.817 Spondylosis without myelopathy or radiculopathy, lumbosacral region (principal); Z98.1 Arthrodesis status; M41.50 Other secondary scoliosis, site unspecified; M54.16 Radiculopathy, lumbar region; M96.1 Postlaminectomy syndrome, not elsewhere classified; I73.9 Peripheral vascular disease, unspecified | CPT/HCPCS: 99202 ==

== ENCOUNTER 2025-07-28 08:25 | Outpatient (REF) | payer MEDICARE, SELFPAY ==
--- OUTSIDE RECORDS SUMMARY | 2025-01-20 07:36 | XMS_ITS ---
Author Organization Trevon Colby III, MD Address [address] [place] [address] Care Team Providers Care Retail Pharmacy Manager Name Role Phone Trevon Colby Primary Care Provider Medications Medication SIG (Take, [...] Date Provider Diagnosis Trevon Colby III, MD [address] [place] [address] [place] [address] 01/20/2025 Trevon Colby Plan Of Treatment Medication Medication Name Sig Start Date Stop Date Notes Ezetimibe 10 MG 1 tablet Orally Once a day for 90 days 01/20/2025 Atorvastatin Calcium 80 MG 1 tablet Oral ly Once a day for 90 days 01/20/2025 Next Appt Details Provider Name:Trevon Colby, 08/06/2025 09:45:00 AM, [address] [facility] [place], [address], Provider Name:Trevon Colby, 05/06/2026 09:30:00 AM, [address] [facility] [place], [address], Progress Notes * Spencer PR[birth year]EDOB:[birth year] (79 yo M)Acc No.[id number]:01/20/2025 Patient: Spencer PATEL :1945 A ge:79 Y S ex:Male Address: [address] [place], [address] * Refills Start Ezetimibe Tablet, 10 MG, Orally, 90 Tablet, 1 tablet, Once a day, 90 days, Refills=3 Start Atorvastatin Calcium Tablet, 80 MG, Orally, 90 Tablet, 1 tablet, Once a day, 90 days, Refills=3 * true * Date: Generated for Allison jimenez/Bhavin/Demetriaitting on: 0 07/28/2025 09:54 AM EDT
--- OUTSIDE RECORDS SUMMARY | 2025-02-11 06:00 | XMS_ITS ---
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) [...] Date Provider Diagnosis Trevon Colby III, MD [address] [place] [address] [place] [address] 02/11/2025 Trevon Colby Injury of left peron [...] Months, Reason: ov review labs Provider Name:Trevon Colby, 08/06/2025 09:45:00 AM, [address] [place] [address] [address]ANIELSON, [place], [address], Provider Name:Trevon Colby, 05/06/2026 09:30:00 AM, [address] [place] [address] [address]GE ALB[address]O DANIELSON, [place], [address], Progress Notes * Spencer PR[birth year]EDOB:[birth year] (79 yo M)Acc No.[id number]:02/11/2025 Progress Notes Patient: Spencer PATEL Provider: Eduar Colby MD :1945 A ge:79 Y S ex:Male Date:02/11/2025 Address: [address], [place], [id number] Subjective: * Chief Complaints: * R ecent spine surgeryPeripheral arterial diseaseNumbness in both feetLeft peroneal nerve injurySpinal stenosisBenign prostatic hypertrophyEmphysemaChronic renal diseaseCoronary artery diseaseHistory of bladder cancer * HPI: C OVID-19 Screening: Kelley rangel returns for a scheduled visit to manage his numerous medical issues at the age of 79. On September 18, 2025 at [facility] by Dr. Baltazar he had and [...] wall ischemia, 99% right coronary artery stenosis 2015left iliofemoral endarterectomy 2016right common femoral artery angioplasty 2016carpal tunnel surgery right hand, Instrum 04/2018carpal tunnel right hand 10/2019Angiogram Dr. Bear 1Lumbar L3-5 Laminectomy, partial facetectomy, foraminotomy, [facility], Dr Baltazar 3Angioplasty right peroneal and popliteal artery 1Right popliteal and peroneal artery atherectomy and angioplasty 12/2017Left femoral endarterectomy, right superficial Femoral artery atherectomy and angioplasty 06/[id number] [place] [facility] [place] * Hospitalization/Major Diagno stic Procedure: B [...] T obacco Use: T obacco Use/Smoking P atarthur is a f ormer smoker H ow [...] 0.000 (Ref Range: 0.0-0.012 X10*3/uL) * Lab:[facility] * Collection Date 02/03/2025 07/24/2024 04/21/2024 [...] MD Date: 0 02/11/2025 Generated for Allison jimenez/Bhavin/Demetriaitting on: 0 07/28/2025 09:55 AM EDT History and Physical Notes * HPI [...]
--- OUTSIDE RECORDS SUMMARY | 2025-04-13 09:30 | XMS_ITS ---
Author Organization Trevon Colby III, MD Address [address] [place] [address] [address] [facility] [place] [address] Care Team Providers Care Spanish Translator Name Role Phone Trevon Colby Primary Care [...] Problem Status W/U Status Risk Notes Problem [id number] Recurrent epistaxis (R04.0) Active confirmed He will [...] Provider Diagnosis Trevon Colby III, MD [address] [place] [address] [place] [address] 04/13/2025 Trevon Colby Hyperlipidemia E78.5 ; Recurrent [...] Scheduled, Edith son: Annual Exam Provider Name:Trevon Colby, 08/06/2025 09:45:00 AM, [address] [place] [address] [address], [place], [phone], Provider Name:Trevon Colby, 05/06/2026 09:30:00 AM, [address] [place] [address] [address], [place], [address], Progress Notes * Spencer PRICEDOB:[birth year] (79 yo M)Acc No.[id number]:04/13/2025 Progress Notes Patient: Spencer PATEL Provider: Eduar Colby MD :1945 A ge:79 Y S ex:Male Date:04/13/2025 [facility], [phone] Subjective: * Chief Complaints: [...] Bear 1Lumbar L3-5 Laminectomy, partial facetectomy, foraminotomy, [facility], Dr Baltazar 3Angioplasty right peroneal and popliteal artery 04/13/2021ight popliteal and peroneal artery atherectomy and angioplasty 12/2017Left femoral endarterectomy, right superficial Femoral artery atherectomy and angioplasty 06/[id number] fusion [facility] 09/18/2024 * Hospitalization/Major Diagno stic Procedure: B [...] MD Date: 0 04/13/2025 Generated for Allison jimenez/Bhavin/eTreinasmitting on: 0 07/28/2025 09:55 AM EDT History [...]
--- OUTSIDE RECORDS SUMMARY | 2025-05-05 05:30 | XMS_ITS ---
Author Organization Trevon Colby III, MD Address [address] AZUL Carmela [facility] [place] [address] Care Team Providers Care Wheel Borer Name Role Phone Trevon Colby Primary Care Provider [phone] Allergies Allergen (clinical drug ingredient) Drug/Non Drug [...] Date Provider Diagnosis Trevon Colby III, MD [address] [place] [address] [place] [address] 05/05/2025 Trevon Colby Hyperlipidemia E78.5 ; Peripheral [...] all of his medications. He saw his healthcare science specialist this month who found him to be [...] Up: 3 Months, Reason: OV Provider Name:Trevon Cloby, 08/06/2025 09:45:00 AM, [address] [place] [address] JORGE ALBERTO DANIELSON, [place], [address], Provider Name:Trevon Colby, 05/06/2026 09:30:00 AM, [address] [place] [address] [place], [address], Progress Notes * Spencer PR[birth year]EDOB:[birth year] (79 yo M)Acc No.[id number]:05/05/2025 Progress Notes Patient: Spencer PATEL Provider: Eduar Colby MD :1945 A ge:79 Y S ex:Male Date:05/05/2025 Address:[address], [place]-[phone] Subjective: * [...] right superficial Femoral artery atherectomy and angioplasty 06/[id number] fusion [facility] [place] 09/18/2024 * Hospitalization/Major Diagno stic [...] List reviewed and reconciled with the patientTaking Eucerin Taking Naproxen 500 MG Tablet 1 tablet [...] all of his medications. He saw his healthcare science specialist this month who found him to be [...] Colby MD Date: 05/05/2025 Generated for Allison jimenez/Bhavin/Demetriaitting on: 0 07/28/2025 [...]
--- OUTSIDE RECORDS SUMMARY | 2025-05-07 06:27 | XMS_ITS ---
Author Organization Trevon Colby III, MD Address [address] [place] [address] [place] [address] Care Team Providers Care Stick Puller Name Role Phone Trevon Colby Primary Care Provider [phone] REASON FOR VISIT ? Rx Social History Sex Assigned At : Social History Observation Description Sex Assigned At Male Encounters Encounter Location Date Provider Diagnosis Trevon Colby III, MD [address] [place] [address] [place] [address] 05/07/2025 Trevon Colby Plan Of Treatment Next Appt Details Provider Name:Trevon Colby, 08/06/2025 09:45:00 AM, [address] [place] [address] [place], [address], Provider Name:Trevon Colby, 05/06/2026 09:30:00 AM, [address] [place] [address] [place], [address], Progress Notes * Spencer PRICEDOB:[birth year] (79 yo M)Acc No.[id number]:05/07/2025 Patient: Spencer PATEL :1945 A ge:79 Y S ex:Male Address:[address] [place], [address] * true * Date: Generated for Printi ng/Faxing/eTransmitting on: 0 07/28/2025 09:55 AM EDT
--- OUTSIDE RECORDS SUMMARY | 2025-07-28 09:55 | XMS_ITS | Clinical Summary ---
Author Organization [address] Address [address] [place] [address] Phone Care Team Providers Care Break And Load Operator Name Role Phone Physician, Pcp Unknown Primary Care Provider Lo vailable Encounters Date Type Department Care Team Description 06/15/2025 Lab Requisition [facility] - Main Lab [address] [facility] [place] [address] Kleber Rodriguez MD Malignant neoplasm of overlapping sites of bladder (CMS/HCC V24, CMS/HCC V28) from Last 3 Months Social History Tobacco Use Types Packs/Day Years Used Date Smoking Tobacco: Former Smokeless Tobacco: Never Sex and Gender Information Value Date Recorded Sex Assigned at Not on file Legal Sex Male 5:48 AM EST Gender Identity Not on file Sexual Orientation Not on file Obstetrics History Plan of Treatment Health Maintenance Due Date Last Done Comments DTaP,Tdap,and Td Vaccines (1 - Tdap) 1962 Pneumococcal Vaccine: 50+ Ye ars (1 of 1 - PCV) 1993 Zoster Vaccines (1 of 2) 1993 RSV Immunization Adult Patie nts (1 - 1-dose 75+ series) 2018 Depression Screening 11/12/2024 Cholesterol Screening (Lipid Panel) 06/15/2025 Falls Risk Assessment 06/15/2025 Social Influencers of Health Screening 06/15/2025 COVID-19 Vaccine ( - 2023-2 5 season) 2025 Influenza Vaccine (#1) 2025 HIB Vaccines Aged Out No longer eligi ble based on patient's age to complete this topic HPV Vaccines Aged Out No longer eligi ble based on patient's age to complete this topic Hepatitis A Vaccines Aged Out No long er eligible based on patient's age to complete this topic Hepatitis B Vaccines Aged Out No long er eligible based on patient's age to complete this topic IPV Vaccines Aged Out No longer eligi ble based on patient's age to complete this topic MMR Vaccines Aged Out No longer eligi ble based on patient's age to complete this topic Meningococcal ACWY Vaccine Aged Out N o longer eligible based on patient's age to complete this topic Meningococcal B Vaccine Aged Out No l onger eligible based on patient's age to complete this topic RSV Immunization Patients Un boaz 20 months Aged Out No longer eligible b ased on patient's age to complete this topic Varicella Vaccines Aged Out No longer eligible based on patient's age to complete this topic Procedures Procedure Name Priority Date/Time Associated Diagnosis Comments NON-GYNECOLOGIC CYTOLOGY Routine 06/08/2025 12:00 AM EDT Malignant neoplasm of overlapping sites of bladder ([facility] V24, [facility] V28) from Last 3 Months Results * Non-gynecologic cytology (06/08/2025 12:00 AM EDT) Final Diagnosis A. Urine, Voided, [id number]: Negative for high grade urothelial carcinoma. Results of UroVysion fluorescence in situ hybridization (FISH) testing: CEP3: Normal CEP7: Normal CEP17: Normal LSI 9p21: Normal Interpretation: Normal profile Controls stained appropriately. Note: The results are intended as a screening device and should be interpreted in association with other clinical and pathological findings. 06/23/2025 9:06 AM EDT [facility] Specimen A Adequacy Satisfactory for evaluation 06/23/2025 9:06 AM EDT [facility] Clinical Information Malignant neoplasm of overlapping sites of bladder C67.8 Urine Cytology/FISH (now) 06/23/2025 9:06 AM [facility] Gross Description A. Urine, Voided, [id number]: Received one ThinPrep slide for cytology and one ThinPrep slide for UroVysion FISH 06/23/2025 9:06 AM T [facility] Disclaimer Unless otherwise specified, all tissue is 10% NB formalin fixed and paraffin embedded. Technical pathology services provided by [facility] at [address], [place] [address] (CLIA #[id number]/Jacque Good MD, Photographer'S Model) 06/23/2025 9:06 AM EDT [facility] Urine Urine specimen from urethra / Unknown 06/08/2025 06/15/2025 9:32 AM EDT us Kleber Rodriguez MD LAB CYTOLOGY ORDERABLES Final R esult [facility] [address] [place] [address], from Last 3 Months Insurance [facility] [employer] Care Teams Break And Load Operator Relationship Specialty Start Date End Date Physician, Pcp Unknown PCP - General 06/15/25
--- OUTSIDE RECORDS SUMMARY | 2025-07-28 09:55 | XMS_ITS | Encounter Summary ---
Author Organization [facility] Address [address] [place] [address] Care Team Providers Care Cryptologist Name Role Phone Physician, Pcp Unknown Primary Care Provider Lo vailable Encounter Details Date Type Department Care Team (Late st Contact Info) Description 06/15/2025 Lab Requisition [facility] - Main Lab [address] [place] [id number] Kleber Rodriguez MD [address] [place] [address] Malignant neoplasm of overlapping sites of bladder (CMS/HCC V24, CMS/HCC V28) Social History Tobacco Use Types Packs/Day Years Used Date Smoking Tobacco: Former Smokeless Tobacco: Never Sex and Gender Information Value Date Recorded Sex Assigned at Not on file Legal Sex Male 5:48 AM EST Gender Identity Not on file Sexual Orientation Not on file documented as of this encounter Plan of Treatment Not on file documented as of this encounter Procedures Procedure Name Priority Date/Time Associated Diagnosis Comments NON-GYNECOLOGIC CYTOLOGY Routine 06/08/2025 12:00 AM EDT Malignant neoplasm of overlapping sites of bladder (CMS/HCC V24, CMS/HCC V28) documented in this encounter Results * Non-gynecologic cytology (06/08/2025 12:00 AM EDT) Final Diagnosis A. Urine, Voided, [id number]: Negative for high grade urothelial carcinoma. Results of UroVysion fluorescence in situ hybridization (FISH) testing: CEP3: Normal CEP7: Normal CEP17: Normal LSI 9p21: Normal Interpretation: Normal profile Controls stained appropriately. Note: The results are intended as a screening device and should be interpreted in association with other clinical and pathological findings. 06/23/2025 9:06 AM EDT [facility] Specimen A Adequacy Satisfactory for evaluation 06/23/2025 9:06 AM EDT [facility] Clinical Information Malignant neoplasm of overlapping sites of bladder C67.8 Urine Cytology/FISH (now) 06/23/2025 9:06 AM EDT [facility] Gross Description A. Urine, Voided, [id number]: Received one ThinPrep slide for cytology and one ThinPrep slide for UroVysion FISH 06/23/2025 9:06 AM EDT [facility] Disclaimer Unless otherwise specified, all tissue is 10% NB formalin fixed and paraffin embedded. Technical pathology services provided [facility] [address] [facility] [facility] [address] [place] [address] (CLIA #[id number]/Jacque Good MD, Supervising Nurse) 06/23/2025 9:06 AM EDT [facility] Urine Urine specimen from urethra / Unknown 06/08/2025 06/15/2025 9:32 AM EDT us Kleber Rodriguez MD LAB CYTOLOGY ORDERABLES Final R esult [facility] [address] [place] [address], documented in this encounter Visit Diagnoses Diagnosis Malignant neoplasm of overlapping sites of bladder (CMS/HCC V24, CMS/HCC V28) documented in this encounter Care Teams Cryptologist Relationship Specialty Start Date End Date Physician, Pcp Unknown PCP - General 06/15/25 documented as of this encounter
--- OUTSIDE RECORDS SUMMARY | 2025-07-28 09:55 | XMS_ITS | Patient Health Record ---
Author Organization Trevon Colby III, MD Address [address] [place] [address] [place] [address] Care Team Providers Care Door Clamper Name Role Phone Trevon Colby Primary Care [...] 0.2 - 1.3 BLD Negative Negative - Type and Screen Reviewed date:09/07/2024 06:31:42 AM Interpretation: Performing Lab:[facility], [address] [place] [address] Notes/Report: WITNESSED BY THE NURSING: Call Blood Bank (ext. [phone]) to band patient on admission. Type and Screen in effect until 2300 on 09-17-2024 Spec expiration changed by SHOBHA on 09/03/24 Reason: PAT SPEC 09/17/24 Blood Type OP Antibody Screen NEGATIVE Glucose, Whole Blood Reviewed date:09/18/2024 09:17:25 AM Interpretation: Performing Lab:[facility], [address] [place] [address] Notes/Report: Glucose, Whole Blood 178 60-115 mg/dL METER # : [id number] FL guidance in OR Reviewed date:09/23/2024 08:42:28 AM Interpretation: Performing Lab: Notes/Report: [address] [address] Fluoroscopy Report Signed Patient: Spencer Price MR#: [id number] : 1945 Acct:[id number] Age/Sex: 79 / M ADM Date: 09/17/24 Loc: HO.S3 344-[address]: Vikram RUVALCABA Ordering Physician: George Baltazar MD, PhD Date of Service: 09/17/24 Procedure(s): FL guidance in OR Accession Number(s): [id number] cc: Trevon Colby MD; George Baltazar MD, [...] by: Gillian Onofre MD 09/18/2024 12:40 PM [facility] Dictated By: Gillian Onofre MD Signed By: <Electronically signed by Gillian Onofre MD in OV> 09/18/24 1240 DD/ 0740 TD/TT: 09/17/24 1025 Glue Spreading Machine Operator: KAIDEN [address] [address] Fluoroscopy Report Signed Patient: Spencer Price MR#: [id number] : 1945 Acct:[id number] Age/Sex: 79 / M ADM Date: 09/17/24 Loc: HO.S3 344-[address]: Vikram RUVALCABA Ordering Physician: George Baltazar MD, PhD Date of Service: 09/17/24 Procedure(s): FL guidance in OR Accession Number(s): [id number] cc: Trevon Colby MD; George Baltazar MD, [...] by: Gillian Onofre MD 09/18/2024 12:40 PM [facility] Dictated By: Gillian Onofre MD Signed By: <Electronically signed by Gillian Onofre MD in OV> 09/18/24 1240 DD/ 0740 TD/TT: 09/17/24 1025 Glue Spreading Machine Operator: KAIDEN Complete Blood Count Auto Di ff Reviewed date:09/23/2024 08:42:28 AM Interpretation: Performing Lab:[facility], [address] [place] [address] Notes/Report: White Blood Count 11.7 4.8-10.8 X10*3/uL [...] date:01/19/2025 08:16:21 PM Interpretation: Performing Lab: Notes/Report: [place] [address] Ultrasound Report Signed Patient: Spencer Price MR#: [id number] : 1945 Acct:[id number] Age/Sex: 79 / M ADM Date: 11/06/24 Loc: . Attending Dr: Rusty Bear MD Ordering Physician: Rusty Bear MD Date of Service: 11/06/24 Procedure(s): US arterial duplex BI w/ NA Accession Number(s): [id number] cc: Trevon Colby MD; Rusty Bear MD [...] Stent from the proximal to mid SFA: Solomon artery proximal to stent: 97 cm/s Proximal stent: 142 cm/s Mid stent: 119 cm/s Distal stent: 172 cm/s Solomon artery distal to stent: 154 cm/s Superficial femoral artery (mid): 154 cm/s. Stent from mid to distal SFA: Solomon artery proximal to stent: 145 cm/s Proximal stent: 136 cm/s Mid stent: 121 cm/s Distal stent: 146 cm/s Solomon artery distal to stent: 94 cm/s Diastolic [...] by: Yair Guaman MD 11/24/2024 12:37 PM [facility] Dictated By: Yair Guaman MD Signed By: <Electronically signed by Yair Guaman MD in OV> 11/24/24 1237 DD/ 1315 TD/TT: 11/06/24 1400 Glue Spreading Machine Operator: [address] [address] Ultrasound Report Signed Patient: Spencer Price MR#: [id number] : 1945 Acct:[id number] Age/Sex: 79 / M ADM Date: 11/06/24 Loc: HO.US Attending Dr: Rusty Bear MD Ordering Physician: Rusty Bear MD Date of Service: 11/06/24 Procedure(s): US arterial duplex BI w/ NA Accession Number(s): [id number] cc: Trevon Colby MD; Rusty Bear MD [...] from the proxi mal to mid SFA: Solomon artery proxim al to stent: 97 cm/s Proximal stent: 142 cm/s Mid stent: 119 cm/s Distal stent: 172 cm/s Solomon artery distal to stent: 154 cm/s Superficial femoral artery (mid): 154 cm/s. Stent from mid to distal SFA: Solomon artery proxim al to stent: 145 cm/s Proximal stent: 136 cm/s Mid stent: 121 cm/s Distal stent: 146 cm/s Solomon artery distal to stent: 94 cm/s Diastolic [...] by: Yair Guaman MD 11/24/2024 12:37 PM [facility] Dictated By: Yair Guaman MD Signed By: <Electronically signed by Yair Guaman MD in OV> 11/24/24 1237 DD/ 1315 TD/TT: 11/06/24 1400 Glue Spreading Machine Operator: XR lumbar spine 4V min Reviewed date:01/19/2025 08:16:21 PM Interpretation: Performing Lab: Notes/Report: [facility] [address] [place] [address] XRay Report Signed Patient: Spencer Price MR#: [id number] : 1945 Acct:[id number] Age/Sex: 79 / M ADM Date: 11/17/24 Loc: MELVIN Attending Dr: Vikram RUVALCABA Ordering Physician: Vikram Grant Date of Service: 11/17/24 Procedure(s): XR lumbar spine 4V min Accession Number(s): [id number] cc: Trevon Colby MD; Vikram Grant . [...] 11/19/2024 01:05 PM EST Dictated By: Akshat Hooper MD Signed By: <Electronically signed by Akshat Jordan MD in OV> 11/19/24 1305 DD/ 0855 TD/TT: 11/17/24 0900 Glue Spreading Machine Operator: [facility] [address] [place] [address] XRay Report Signed Patient: Spencer Price MR#: [id number] : 1945 Acct:[id number] Age/Sex: 79 / M ADM Date: 11/17/24 Loc: HO.HOSX Attending Dr: Vikram RUVALCABA Ordering Physician: Vikram Grant Date of Service: 11/17/24 Procedure(s): XR lum bar spine 4V min Accession Number(s): [id number] cc: Trevon Colby MD; Vikram Grant . [...] 11/19/24 1305 DD/ 0855 TD/TT: 11/17/24 0900 Glue Spreading Machine Operator: MR lumbar spine wo/w con Reviewed date:01/19/2025 08:16:21 PM Interpretation: Performing Lab: Notes/Report: [address] [address] Magnetic Resonance Report Signed Patient: Spencer Price MR#: [id number] : 1945 Acct:[id number] Age/Sex: 79 / M ADM Date: 11/19/24 Loc: HO.MRI Attending Dr: Vikram RUVALCABA Ordering Physician: Vikram Grant Date of Service: 11/19/24 Procedure(s): MR lumbar spine wo/w con Accession Number(s): [id number] cc: Trevon Colby MD; Vikram Grant EXAMINATION: [...] 11/24/24 0953 DD/ 1220 TD/TT: 11/19/24 1312 Glue Spreading Machine Operator: [address] [address] Magnetic Resonance Report Signed Patient: Spencer Price MR#: [id number] : 1945 Acct:[id number] Age/Sex: 79 / M ADM Date: 11/19/24 Loc: HO.MRI Attending Dr: Vikram RUVALCABA Ordering Physician: Vikram Grant Date of Service: 11/19/24 Procedure(s): MR lum bar spine wo/w con Accession Number(s): [id number] cc: Trevon Colby MD; Vikram Grant EXAMINATION: [...] by: Akshat Jiang MD 11/24/2024 09:53 AM [facility] Dictated By: Akshat Rivas MD Signed By: <Electronically signed by Akshat Jordan MD in OV> 11/24/24 0953 DD/ 1220 TD/TT: 11/19/24 1312 Glue Spreading Machine Operator: Complete Blood Count Auto Di ff Reviewed date:02/04/2025 08:51:44 AM Interpretation: Performing Lab:[facility], [address] [place] [address] Notes/Report: White Blood Count 5.0 4.8-10.8 X10*3/uL [...] NRBC Abs Auto 0.000 0.0-0.012 X10*3/uL Comprehensive Nixa. Panel Fa st Reviewed date:02/04/2025 08:51:44 AM Interpretation: Performing Lab:[facility], [address] [place] [address] Notes/Report: Sodium 137 135-145 mmol/L Potassium 4.6 [...] Panel Reviewed date:02/04/2025 08:51:45 AM Interpretation: Performing Lab:[address] [address] Notes/Report: Triglycerides 56 <150 mg/dL Desirable Triglyceride: [...] Antigen Reviewed date:02/04/2025 08:51:45 AM Interpretation: Performing Lab:[address] [address] Notes/Report: Prostate Specific Antigen 2.83 <0.05-4.0 ng/mL PSA methodology: Chavez Alinity i Chemiluminescent Microparticle Immunoassay (CMIA) Blood Urea Nitrogen Reviewed date:05/07/2025 04:33:18 AM Interpretation: Performing Lab:[address] [address] Notes/Report: Blood Urea Nitrogen 32 9-16 mg/dL Creatinine Reviewed date:05/07/2025 04:33:18 AM Interpretation: Performing Lab:[address] [address] Notes/Report: Creatinine 1.50 0.5-1.4 mg/dL Estimated Glomerular Filt Rate 45 Chronic Kidney Disease: Estimated GFR < 60 mL/min/1.73m2 Severe Kidney Disease: Estimated GFR < 15 mL/min/1.73m2 CT angio abd aorta runoff Reviewed date:05/07/2025 04:33:18 AM Interpretation: Performing Lab: Notes/Report: [address] [address] [address] Scan Report Signed Patient: Spencer Price MR#: [id number] : 1945 Acct:[id number] Age/Sex: 79 / M ADM Date: 04/16/25 Loc: HO.CT Attending Dr: Rusty Bear MD Ordering Physician: Rusty Bear MD Date of Service: 04/16/25 Procedure(s): CT angio abd aorta runoff Accession Number(s): [id number] cc: Trevon Colby MD; Rusty Bear MD Report Number: [id number]: Total DLP = 787.00 mGy-cm CLINICAL HISTORY: [...] in OV> 04/17/25848 DD/ 8 TD/TT: 04/17/25848 Glue Spreading Machine Operator: [address] [address] [address] Scan Report Signed Patient: Spencer Price MR#: [id number] : 1945 Acct:[id number] Age/Sex: 79 / M ADM Date: 04/16/25 Loc: HO.CT Attending Dr: Rusty Bear MD Ordering Physician: Rusty Bear MD Date of Service: 04/16/25 Procedure(s): CT ang io abd aorta runoff Accession Number(s): [id number] cc: Trevon Colby MD; Rusty Bear MD Report Number: [id number]: Total DLP = 787.00 mGy-cm CLINICAL HISTORY: [...] in OV> 04/17/2549 DD/ 8 TD/TT: 04/17/25848 Glue Spreading Machine Operator: Complete Blood Count Auto Di ff Reviewed date:05/07/2025 04:33:18 AM Interpretation: Performing Lab:[facility], [address] [place] [address] Notes/Report: White Blood Count 4.7 4.8-10.8 X10*3/uL [...] NRBC Abs Auto 0.000 0.0-0.012 X10*3/uL Comprehensive Nixa. Panel Fa st Reviewed date:05/07/2025 04:33:18 AM Interpretation: Performing Lab:[facility], [address] [place] [address] Notes/Report: Sodium 140 135-145 mmol/L Potassium 5.1 [...] Panel Reviewed date:05/07/2025 04:33:18 AM Interpretation: Performing Lab:[facility], [address] [place] [address] Notes/Report: Triglycerides 46 <150 mg/dL Desirable Triglyceride: [...] ff Reviewed date:05/07/2025 04:33:18 AM Interpretation: Performing Lab:[facility], [address] [place] [address] Notes/Report: White Blood Count 5.2 4.8-10.8 X10*3/uL [...] Nitrogen Reviewed date:05/07/2025 04:33:18 AM Interpretation: Performing Lab:[address] [address] Notes/Report: Blood Urea Nitrogen 46 9-16 mg/dL Creatinine Reviewed date:05/07/2025 04:33:18 AM Interpretation: Performing Lab:[address] [address] Notes/Report: Creatinine 1.66 0.5-1.4 mg/dL Creatinine Clr [...] Problem Status W/U Status Risk Notes Problem 0934229 Former smoker (Z87.891) Active confirmed He is highly motivated not to smoke and we discussed means of preserving abstinence in times of stress. Problem 69523381 Hyperlipidemia (E78.5) Active confirmed His total cholesterol level is 104. His lipids are in near target range. No change in his medications was made. His lipids were reviewed. He will have fasting lipid profile in the near future. Problem 847593480 Overweight (E66.3) Active confirmed His body mass [...] weight maintenance diet low in cholesterol. Problem 320899268 Tubular adenoma (D36.9) Active confirmed He will continue to undergo colonoscopies every 5 years. Problem 88839574 Carpal tunnel syndrome, right upper limb (G56.01) Active confirmed He has seen the orthopedic surgeon and will undergo surgery for carpal tunnel syndrome on the right later this month. He is cleared for surgery at this time. Problem 11635311 Coronary artery disease (I25.10) Active confirmed He has had no recent palpitations, angina, syncope or nausea. He has been compliant with all of his medications. He saw his special diet cook this month who found him to be stable and gave him an appointment to return in one year. Problem 545554842 BPH (benign prostatic hyperplasia) (N40.0) Active confirmed He arises from sleep once or twice a night to urinate. We have discussed lifestyle modifications he could make to reduce nocturia. Problem 428320659 Peripheral vascular disease (I73.9) Active confirmed He [...] and was thought to be stable. 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 He has an upcoming appointment with a neurosurgeon at the end of this month. Problem 862243444 Erectile dysfunction (N52.9) Active confirmed This is well compensated with medications. Problem 459600948 Osteoarthritis of right hip (M16.11) Active confirmed . He describes a hip pain as mild today. Problem 84799052 Spinal stenosis, lumbar (M48.06) Active confirmed The lumbar fusiontook place without side effects or incidents. He notices a substantial improvement in his back pain. The wound is well-healed. He reports much less pain with ambulation. 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 The discomfort has resolved. Problem Pulmonary emphysema (06616706) Emphysema lung (J43.9) Active confirmed He is no longer smoking. He is short of breath with sustained exertion but is comfortable breathing room air at rest. Problem 125087175 History of bladder cancer (Z85.51) Active confirmed There was no sign of cancer on his exam today. He recently had a cystoscopy, March 2024 which showed no gross recurrence. Surveillance will continue Problem 300848482 Stage 2 chronic kidney disease (N18.2) Active confirmed His GFR has improved substantially since his last blood test. His urinary tract is currently asymptomatic.H is glomerular filtration rate has fallen from 54 down to 46. I have encouraged him to stay hydrated. Problem 0201500117515 Recurrent epistaxis (R04.0) Active confirmed He will continue the use of aspirin. He was instructed on techniques to stop bleeding. He was instructed to go to the emergency room if bleeding does not stop. If this continues he will see ENT for definitive treatment. 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) [...] Date Provider Diagnosis Trevon Colby III, MD [address] [place] [address] [place] [address] 08/01/2024 Trevon Colby Hyperlipidemia E78.5 ; Osteoarthritis of right hip M16.11 ; Overweight E66.3 ; Spinal stenosis, lumbar M48.06 ; Carpal tunnel syndrome, right upper limb G56.01 ; Peripheral vascular disease I73.9 ; History of bladder cancer Z85.51 and Stage 2 chronic kidney disease N18.2 Trevon Colby III, MD [address] [place] [address] [place] [address] 10/13/2024 rTevon Colby Hyperlipidemia E78.5 ; Spinal stenosis, lumbar M48.06 ; Overweight E66.3 ; BPH (benign prostatic hyperplasia) N40.0 ; Former smoker Z87.891 ; History of bladder cancer Z85.51 ; Peripheral vascular disease I73.9 ; Osteoarthritis of right hip M16.11 ; Coronary artery disease I25.10 ; Stage 2 chronic kidney disease N18.2 and Emphysema lung J43.9 Trevon Colby III, MD [address] [place] [address] [place] [address] 02/11/2025 Trevon Colby Injury of left peron eal nerve, sequela S84.12XS ; Hyperlipidemia E78.5 ; Stage 2 chronic kidney disease N18.2 ; Osteoarthritis of right hip M16.11 ; Overweight E66.3 ; Spinal stenosis, lumbar M48.06 ; BPH (benign prostatic hyperplasia) N40.0 ; Former smoker Z87.891 and Peripheral vascular disease I73.9 Trevon Colby III, MD [address] [place] [address] [place] [address] 04/13/2025 Trevon Colby Hyperlipidemia E78.5 ; Recurrent epistaxis R04.0 ; Osteoarthritis of right hip M16.11 ; Spinal stenosis, lumbar M48.06 ; Former smoker Z87.891 and Peripheral vascular disease I73.9 Trevon Colby III, MD [address] [place] [address] [place] [address] 05/05/2025 Trevon Colby Hyperlipidemia E78.5 ; Peripheral [...] Emphysema lung J43.9 Trevon Colby III, MD [address] [place] [address] [place] [address] 11/28/2024 Trevon Colby Hyperlipidemia E78.5 Trevon Colby III, MD [address] [place] [address] [place] [address] 12/12/2024 Trevon Colby Hyperlipidemia E78.5 Trevon Colby III, MD [address] [place] [address] [place] [address] 01/19/2025 Trevon Colby III, MD [address] [place] [address] [place] [address] 01/20/2025 Trevon Colby III, MD [address] [place] [address] [address] [place] [address] 05/07/2025 Trevon Colby Assessments Encounter Date Diagnosis [...] all of his medications. He saw his special diet cook this month who found him to be [...] all of his medications. He saw his special diet cook this month who found him to be [...] Details Provider Name:Trevon Colby, 08/06/2025 09:45:00 AM, [address] [place] [address] [address], [place], [address], Provider Name:Trevon Colby, 05/06/2026 09:30:00 AM, [address] [place] [address] [address], [place], [address], Insurance Providers Payer Name Payer Address Payer Phone Subscriber Number Group Number Insured Name Patient Relationship to Insured Coverage Start Date Coverage End Date [facility] [employer] [address] [facility] [address] [phone] [id number] Spencer Price Self - patient is the insured MEDICARE NGS [address] [place] [address] [phone] [id number] Albert Spencer Self - patient is the insured Medical [...] 17 Surgical History Surgery Date(Month/Year) L3-L5 fusion [facility] 09/18/2024 Left femoral endarterectomy, right superficial Femoral artery atherectomy and angioplasty 06/2018 Right popliteal and peroneal artery athe rectomy and angioplasty 12/2017 Angioplasty right peroneal and popliteal artery 04/13/2021 Lumbar L3-5 Laminectomy, par tial facetectomy, foraminotomy, [facility], Dr Baltazar 10/25/[address] Bear [...]
[2025-07-28 11:37] LABS: MANUAL DIFF FLAG NO
[2025-07-28 11:56] LABS: Hematocrit 37.6 % (42.0-52.0); Hemoglobin 12.4 g/dl (14.0-18.0); Imm Gran Abs Auto 0.02 X10*3/uL (0.00-0.03); Imm Gran Pct Auto 0.4 % (0.0-0.4); Lymphocytes Absolute Auto 1.5 X10*3/uL (1.2-4.9); Mean Corpuscular HGB Conc 33.0 g/dl (31.0-36.0); Mean Corpuscular Hemoglobin 33.1 pg (27.0-33.0); Mean Corpuscular Volume 100.3 fL (80.0-98.0); NRBC Abs Auto 0.000 X10*3/uL (0.0-0.012); NRBC Pct Auto 0.0 /100WBC (0.0-0.2); Platelet Count 258 X10*3/uL (160-400); Red Blood Count 3.75 X10*6/uL (4.60-5.80); White Blood Count 4.8 X10*3/uL (4.8-10.8)
[2025-07-28 12:24] LABS: Alanine Aminotransferase 16 U/L (0-40); Albumin Level 4.1 g/dL (3.5-5.0); Alkaline Phosphatase 89 U/L (39-117); Anion Gap 11 (12-20); Aspartate Amino Transferase 33 U/L (5-37); Blood Urea Nitrogen 32 mg/dL (9-16); Calcium 9.7 mg/dL (8.4-10.2); Carbon Dioxide 28 mmol/L (22-29); Chloride 106 mmol/L (96-108); Cholesterol 110 mg/dL (<200); Estimated Glomerular Filt Rate 47; HDL Cholesterol 51 mg/dL (>40); Potassium 4.6 mmol/L (3.3-5.1); Sodium 140 mmol/L (135-145); Total Protein 6.7 g/dL (6.5-8.0); Triglycerides 48 mg/dL (<150)
== END 2025-07-28 08:26 | disposition home or self-care (01) ==
LOC: HO.WFDLDS 08:25
PROVIDERS: Visit Provider Internal Medicine Medical Oncology
DX: Z00.00 Encounter for general adult medical examination without abnormal findings (principal); E78.5 Hyperlipidemia, unspecified; E66.3 Overweight
CPT/HCPCS: 36415; 80053; 80061; 85025

== ENCOUNTER 2025-08-11 08:21 | Outpatient (REF) | payer MEDICARE, SELFPAY ==
--- OUTSIDE RECORDS SUMMARY | 2025-02-11 06:00 | XMS_ITS ---
Author Organization Trevon Colby III, MD Address [address] [place] [address] [place] [address] Care Team Providers Care Stationary Engineer Name Role Phone Dr. 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) [...] Date Provider Diagnosis Trevon Colby III, MD [address] [place] [address] [place] [address] 02/11/2025 Trevon Colby Injury of left peron [...] Provider Name:Trevon Colby , 10/29/2025 09:45:00 AM, [address] [place] [address] DR [address] Carmela, [place], [address], Provider Name:Trevon Colby , 05/06/2026 09:30:00 AM, [address] [place] [address] [address] DANIELSON, [place], [address], Progress Notes * Spencer PRICEDOB:[birth year] (79 yo M)Acc No.[id number]:02/11/2025 Progress Notes Patient: Spencer PATEL Provider: Eduar Colby MD :1945 A ge:79 Y S ex:Male Date:02/11/2025 Address: [id number] Subjective: * Chief Complaints: * R ecent spine surgeryPeripheral arterial diseaseNumbness in both feetLeft peroneal nerve injurySpinal stenosisBenign prostatic hypertrophyEmphysemaChronic renal diseaseCoronary artery diseaseHistory of bladder cancer * HPI: C OVID-19 Screening: Kelley rangel returns for a scheduled visit to manage his numerous medical issues at the age of 79. On September 18, 2025 at [facility] by Dr. Baltazar he had and [...] Bear 1Lumbar L3-5 Laminectomy, partial facetectomy, foraminotomy, [facility], Dr Baltazar 3Angioplasty right peroneal and popliteal artery 1Right popliteal and peroneal artery atherectomy and angioplasty 12/2017Left femoral endarterectomy, right superficial Femoral artery atherectomy and angioplasty 06/[id number] [place] [facility] [place] * Hospitalization/Major Diagno [...] 0 02/11/2025 Generated for Allison jimenez/Bhavin/Nakul on: 08/11/2025 08:41 AM EDT History and Physical Notes * [...]
--- OUTSIDE RECORDS SUMMARY | 2025-04-13 09:30 | XMS_ITS ---
Author Organization Trevon Colby III, MD Address [address] [place] [address] [place] [address] Care Team Providers Care Business Analyst Ecommerce Name Role Phone Dr. Trevon Colby III [...] Problem Status W/U Status Risk Notes Problem [id number] Recurrent epistaxis (R04.0) Active confirmed He will [...] Date Provider Diagnosis Trevon Colby III, MD [address] [place] [address] [place] [address] 04/13/2025 Trevon Colby Hyperlipidemia E78.5 ; Recurrent [...] Provider Name:Trevon Colby , 10/29/2025 09:45:00 AM, [address] [place] [address] [address], [place], [address], Provider Name:Trevon Colby , 05/06/2026 09:30:00 AM, [address] [place] [address] [address], [place], [address], Progress Notes * Spencer PRICEDOB:[birth year] (79 yo M)Acc No.[id number]:04/13/2025 Progress Notes Patient: Spencer PATEL Provider: Eduar Colby MD :1945 A ge:79 Y S ex:Male Date:04/13/2025 Address:[address] [place] [address] [place], [phone] Subjective: * Chief [...] Bear 1Lumbar L3-5 Laminectomy, partial facetectomy, foraminotomy, [facility], Dr Baltazar 3Angioplasty right peroneal and popliteal artery 04/13/2021ight popliteal and peroneal artery atherectomy and angioplasty 12/2017Left femoral endarterectomy, right superficial Femoral artery atherectomy and angioplasty 06/[id number] [place] [facility] [place] * Hospitalization/Major Diagno stic Procedure: B [...] 0 04/13/2025 Generated for Allison jimenez/Bhavin/Alexsmitting on: 0 08/11/2025 08:42 AM EDT History and Physical Notes * [...]
--- OUTSIDE RECORDS SUMMARY | 2025-05-05 05:30 | XMS_ITS ---
Author Organization Trevon Colby III, MD Address [address] [place] [address] [place] [address] Care Team Providers Care Staff Genetic Counselor Name Role Phone Dr. Trevon Colby III Primary Care Provider [phone] Allergies Allergen (clinical drug ingredient) Drug/Non Drug [...] Date Provider Diagnosis Trevon Colby III, MD [address] [place] [address] DR FAITH [facility] [place] [address] 05/05/2025 Trevon Colby Hyperlipidemia E78.5 ; Peripheral [...] all of his medications. He saw his causticiser this month who found him to be [...] Provider Name:Trevon Colby , 10/29/2025 09:45:00 AM, [address] [place] [address] JORGE ALBERTO DANIELSON, [place], [address], Provider Name:Trevon Colby , 05/06/2026 09:30:00 AM, [address] [place] [address] [place], [address], Progress Notes * Spencer PR[birth year]EDOB:[birth year] (79 yo M)Acc No.[id number]:05/05/2025 Progress Notes Patient: Spencer PATEL Provider: Eduar [...] 1Lumbar L3-5 Laminectomy, partial facetectomy, foraminotomy, [facility], Dr Baltazar 3Angioplasty right peroneal and popliteal artery 1Right popliteal and peroneal artery atherectomy and angioplasty 12/2017Left femoral endarterectomy, right superficial Femoral artery atherectomy and angioplasty 06/[id number] fusion [facility] [place] 09/18/2024 * Hospitalization/Major Diagno stic Procedure: B [...] all of his medications. He saw his causticiser this month who found him to be [...] true * Provider: Eduar Colby MD Date: 05/05/2025 Generated for Allison jimenez/Bhavin/Alexsmitting on: 08/11/2025 08:41 AM EDT History and [...]
--- OUTSIDE RECORDS SUMMARY | 2025-05-07 06:27 | XMS_ITS ---
Author Organization Trevon Colby III, MD Address [address] [place] [address] [place] [address] Care Team Providers Care Exchange Teller Name Role Phone Dr. Trevon Colby III Primary Care Provider REASON FOR VISIT ? Rx Social History Sex Assigned At : Social History Observation Description Sex Assigned At Male Encounters Encounter Location Date Provider Diagnosis Trevon Colby III, MD [address] [place] [address] [place] [address] 05/07/2025 Trevon Colby Plan Of Treatment Next Appt Details Provider Name:Trevon Colby , 10/29/2025 09:45:00 AM, [address] [place] [address] [place], [address], Provider Name:Trevon Colby , 05/06/2026 09:30:00 AM, [address] [place] [address] JORGE ALBERTO DANIEL[place] [facility] [place], [address], Progress Notes * Spencer PRICEDOB:[birth year] (79 yo M)Acc No.[id number]:05/07/2025 Patient: Spencer PATEL :1945 A ge:79 Y S ex:Male Address:[address] [place], [address] * true * Date: Generated for Printi ng/Faxing/eTransmitting on: 0 08/11/2025 08:42 AM EDT
--- OUTSIDE RECORDS SUMMARY | 2025-08-06 05:45 | XMS_ITS ---
Author Organization Trevon Colby III, MD Address [address] [place] [address] [place] [address] Care Team Providers Care Clinical Supervisor Name Role Phone Dr. Trevon Colby III [...] Date Provider Diagnosis Trevon Colby III, MD [address] [place] [address] [place] [address] 08/06/2025 Trevon Colby Hyperlipidemia E78.5 ; Coronary [...] Provider Name:Trevon Colby , 10/29/2025 09:45:00 AM, [address] [place] [address] , [facility] [address], [place], [address], Provider Name:Trevon Szymanskine , 05/06/2026 09:30:00 AM, [address] [place] [address] [address]EL[address], [place], [address], Progress Notes * Spencer PRICEDOB:[birth year] (80 yo M)Acc No.[id number]:08/06/2025 Progress Notes Patient: Spencer PATEL Provider: Eduar Colby MD :1945 A ge:80 Y S ex:Male Date:08/06/2025 Address:[address] [place] [address], [facility] [phone] Subjective: * Chief Complaints: * P [...] Bear 1Lumbar L3-5 Laminectomy, partial facetectomy, foraminotomy, [facility], Dr Baltazar 3Angioplasty right peroneal and popliteal artery 1Right popliteal and peroneal artery atherectomy and angioplasty 12/2017Left femoral endarterectomy, right superficial Femoral artery atherectomy and angioplasty 06/[id number] fusion [facility] [place] [...] 0 08/06/2025 Generated for Printi ng/Faxing/eTransmitting on: 08/11/2025 08:41 AM EDT History and [...]
--- NOTE | ~2025-08-11 | US_ITS ---
EXAMINATION: Noninvasive assessment of the bilateral lower extremities with ARTERIAL DUPLEX, ANKLE BRACHIAL INDICES (ABIs), and PULSE VOLUME RECORDINGS (PVRs). CLINICAL INFORMATION: Peripheral vascular disease. I 73.9. Status post stenting right superficial femoral artery mid and distal segments. TECHNIQUE: Duplex Doppler techniques with waveform analysis and measurement of velocities in the bilateral common femoral, profunda femoris, superficial femoral, popliteal and tibial arteries were performed. Additionally, ankle pulse volume recordings, ankle pressure measurements and ankle brachial indices were obtained of the lower extremity arterial system bilaterally. The study was performed only at rest. COMPARISON: November 06, 2024. FINDINGS: DIRECT DUPLEX DOPPLER FINDINGS: RIGHT LEG: Common femoral artery: 132 cm/s, phasicity: Biphasic. Profunda femoris artery: 34 cm/s, phasicity: Monophasic. Reversal. Spectral broadening. Superficial femoral artery (proximal): 97 cm/s, phasicity: Biphasic. Spectral broadening. Superficial femoral artery (mid): Stent. Superficial femoral artery (distal): Stent Popliteal artery: 103 cm/s, phasicity: Monophasic. Spectral broadening. Posterior tibial artery: 26 cm/s, phasicity: Monophasic. Spectral broadening. Peroneal artery: 17 cm/s, phasicity: Monophasic. Spectral broadening. Anterior tibial artery: 27 cm/s, phasicity: Monophasic. Spectral broadening. Dorsalis pedis artery: 23 cm/s, phasicity:Monophasic. Spectral broadening. Stent Superficial femoral artery midsegment: [place] artery proximal to the stent: 113 cm/s and biphasic waveforms. Proximal stent: 119 cm/s and monophasic waveform. Mid stent: 116 cm/s and monophasic waveform. Distal stent: 128 ms and monophasic waveform. [place] artery distal to stent: 102 cm/s. Stent, distal superficial femoral artery: [place] artery proximal to the stent: 93 cm/s and monophasic waveform. Proximal stent: 102 cm/s and monophasic waveform. Mid stent: 110 cm/s and monophasic waveform. Distal stent: 89 cm/s and monophasic waveform. [place] artery distal to the stent: 97 cm/s and monophasic waveform. LEFT LEG: Common femoral artery: 119 cm/s, phasicity: Triphasic. Profunda femoris artery: 151 cm/s, phasicity: Triphasic. Superficial femoral artery (proximal): 27 cm/s, phasicity: Monophasic. Spectral broadening. Superficial femoral artery (mid): 42 cm/s, phasicity: Monophasic. Spectral broadening. Superficial femoral artery (distal): 52 cm/s, phasicity: Monophasic. Spectral broadening. Popliteal artery: 52 cm/s, phasicity: Monophasic. Spectral broadening. Posterior tibial artery: 17 cm/s, phasicity: Monophasic. Spectral broadening. Peroneal artery: 11 cm/s, phasicity: Monophasic.. Spectral broadening. Anterior tibial artery: 12 cm/s, phasicity: Monophasic. Spectral broadening. Dorsalis pedis artery: 11 cm/s, phasicity: Monophasic. Spectral broadening. BRACHIAL PRESSURES: Right: 126 Left: 127 ANKLE PRESSURES: Right: PT 90, DP 83 Left: PT 114, DP 58 ANKLE-BRACHIAL INDEX: Right: 0.71 Left: 0.90 ANKLE PVR WAVEFORMS: Right: Abnormal Left: Abnormal US/US arterial duplex BI w/ NA IMPRESSION: Right leg: Patent stent both mid segment and distal segments of the superficial femoral artery. Severe inflow disease throughout the interrogated arteries. Left leg: Severe inflow disease throughout the interrogated arteries with the exception of the common femoral artery and the profunda femoris artery. NA Reference: - >1.4 = calcified vessels - 0.9 - 1.4 = normal - no significant arterial disease - 0.7 - 0.89 = mild peripheral arterial disease - 0.51 - 0.69 = moderate peripheral arterial disease - 0.50 = severe peripheral arterial disease - < .30 = critical arterial disease Electronically signed by: Akshat Jiang MD 08/12/2025 09:22 AM EDT
--- OUTSIDE RECORDS SUMMARY | 2025-08-11 08:42 | XMS_ITS | Clinical Summary ---
Author Organization [address] Address [address] [place] [address] Phone Care Team Providers Care Mortuary Beautician Name Role Phone Physician, Pcp Unknown Primary Care Provider Lo vailable Encounters Date Type Department Care Team Description 06/15/2025 Lab Requisition [facility] Main Lab [address] [facility] [place] [address] Kleber Rodriguez MD Malignant neoplasm [...] Malignant neoplasm of overlapping sites of bladder ([facility] V24, [facility] V28) from Last 3 Months Results * Non-gynecologic cytology (06/08/2025 12:00 AM EDT) Final Diagnosis A. Urine, Voided, [id number]: Negative for high grade urothelial carcinoma. Results of UroVysion fluorescence in situ hybridization (FISH) testing: CEP3: Normal CEP7: Normal CEP17: Normal LSI 9p21: Normal Interpretation: Normal profile Controls stained appropriately. Note: The results are intended as a screening device and should be interpreted in association with other clinical and pathological findings. 06/23/2025 9:06 AM EDT [facility] Specimen A Adequacy Satisfactory for evaluation 06/23/2025 9:06 AM EDT [facility] Clinical Information Malignant neoplasm of overlapping sites of bladder C67.8 Urine Cytology/FISH (now) 06/23/2025 9:06 AM [facility] Gross Description A. Urine, Voided, [id number]: Received one ThinPrep slide for cytology and one ThinPrep slide for UroVysion FISH 06/23/2025 9:06 AM T [facility] Disclaimer Unless otherwise specified, all tissue is 10% NB formalin fixed and paraffin embedded. Technical pathology services provided by [facility] at [address], [place] [address] (CLIA #[id number]/Jacque Good MD, Cert Pharmacy Tech) 06/23/2025 9:06 AM EDT [facility] Urine Urine specimen from urethra / Unknown 06/08/2025 06/15/2025 9:32 AM EDT us Kleber Rodriguez MD LAB CYTOLOGY ORDERABLES Final R esult [facility] [address] [place] [address], from Last 3 Months Insurance [facility] Care Teams Mortuary Beautician Relationship Specialty Start Date End Date Physician, Pcp Unknown PCP - General 06/15/25
--- OUTSIDE RECORDS SUMMARY | 2025-08-11 08:42 | XMS_ITS | Patient Health Record ---
Author Organization Trevon Colby III, MD Address [address] [place] [address] [address] [place] [address] Care Team Providers Care Certified Genetic Counselor Name Role Phone Dr. Trevon Colby III Primary Care Provider [phone] Allergies Allergen (clinical drug ingredient) Drug/Non Drug [...] Screen Reviewed date:09/07/2024 06:31:42 AM Interpretation: Performing Lab:[facility], [address] [place] [phone] Notes/Report: WITNESSED BY [facility] NURSING: Call Blood Bank (ext. [phone]) to band patient on admission. Type and Screen in effect until 2300 on 09-17-2024 Spec expiration changed by SHOBHA on 09/03/24 Reason: PAT SPEC 09/17/24 Blood Type OP Antibody Screen NEGATIVE Glucose, Whole Blood Reviewed date:09/18/2024 09:17:25 AM Interpretation: Performing Lab:[facility], [address] [place] [phone] Notes/Report: Glucose, Whole Blood 178 60-115 mg/dL METER # : [id number] FL guidance in OR Reviewed date:09/23/2024 08:42:28 AM Interpretation: Performing Lab: Notes/Report: [address] [address] Fluoroscopy Report Signed Patient: Spencer Price MR#: [id number] : 1945 Acct:[id number] Age/Sex: 79 / M ADM Date: 09/17/24 Loc: HO.S3 344-[address]: Vikram RUVALCABA Ordering Physician: George Baltazar MD, PhD Date of Service: 09/17/24 Procedure(s): FL guidance in OR Accession Number(s): [id number] cc: Trevon Colby MD; George Baltazar MD, [...] by: Gillian Onofre MD 09/18/2024 12:40 PM [facility] Dictated By: Gillian Onofre MD Signed By: <Electronically signed by Gillian Onofre MD in OV> 09/18/24 1240 DD/ 0740 TD/TT: 09/17/24 1025 Relief Pharmacist: KAIDEN [address] [address] Fluoroscopy Report Signed Patient: Spencer Price MR#: [id number] : 1945 Acct:[id number] Age/Sex: 79 / M ADM Date: 09/17/24 Loc: HO.S3 344-[address]: Vikram RUVALCABA Ordering Physician: George Baltazar MD, PhD Date of Service: 09/17/24 Procedure(s): FL guidance in OR Accession Number(s): [id number] cc: Trevon Colby MD; George Baltazar MD, [...] by: Gillian Onofre MD 09/18/2024 12:40 PM [facility] Dictated By: Gillian Onofre MD Signed By: <Electronically signed by Gillian Onofre MD in OV> 09/18/24 1240 DD/ 0740 TD/TT: 09/17/24 1025 Relief Pharmacist: PN Complete Blood Count Auto Di ff Reviewed date:09/23/2024 08:42:28 AM Interpretation: Performing Lab:[facility], [address] [place] [phone] Notes/Report: White Blood Count 11.7 4.8-10.8 X10*3/uL [...] date:01/19/2025 08:16:21 PM Interpretation: Performing Lab: Notes/Report: [place] [address] Ultrasound Report Signed Patient: Spencer Price MR#: [id number] : 1945 Acct:[id number] Age/Sex: 79 / M ADM Date: 11/06/24 Loc: . Attending Dr: Rusty Bear MD Ordering Physician: Rusty Bear MD Date of Service: 11/06/24 Procedure(s): US arterial duplex BI w/ NA Accession Number(s): [id number] cc: Trevon Colby MD; Rusty Bear MD [...] Stent from the proximal to mid SFA: [place] artery proximal to stent: 97 cm/s Proximal stent: 142 cm/s Mid stent: 119 cm/s Distal stent: 172 cm/s [place] artery distal to stent: 154 cm/s Superficial femoral artery (mid): 154 cm/s. Stent from mid to distal SFA: [place] artery proximal to stent: 145 cm/s Proximal stent: 136 cm/s Mid stent: 121 cm/s Distal stent: 146 cm/s [place] artery distal to stent: 94 cm/s Diastolic [...] by: Yair Guaman MD 11/24/2024 12:37 PM [facility] Dictated By: Yair Guaman MD Signed By: <Electronically signed by Yair Guaman MD in OV> 11/24/24 1237 DD/ 1315 TD/TT: 11/06/24 1400 Relief Pharmacist: [address] [address] Ultrasound Report Signed Patient: Spencer Price MR#: [id number] : 1945 Acct:[id number] Age/Sex: 79 / M ADM Date: 11/06/24 Loc: HO.US Attending Dr: Rusty Bear MD Ordering Physician: Rusty Bear MD Date of Service: 11/06/24 Procedure(s): US arterial duplex BI w/ NA Accession Number(s): [id number] cc: Trevon Colby MD; Rusty Bear MD [...] from the proxi mal to mid SFA: [place] artery proxim al to stent: 97 cm/s Proximal stent: 142 cm/s Mid stent: 119 cm/s Distal stent: 172 cm/s [place] artery distal to stent: 154 cm/s Superficial femoral artery (mid): 154 cm/s. Stent from mid to distal SFA: [place] artery proxim al to stent: 145 cm/s Proximal stent: 136 cm/s Mid stent: 121 cm/s Distal stent: 146 cm/s [place] artery distal to stent: 94 cm/s Diastolic [...] by: Yair Guaman MD 11/24/2024 12:37 PM [facility] Dictated By: Yair Guaman MD Signed By: <Electronically signed by Yair Guaman MD in OV> 11/24/24 1237 DD/ 1315 TD/TT: 11/06/24 1400 Relief Pharmacist: XR lumbar spine 4V min Reviewed date:01/19/2025 08:16:21 PM Interpretation: Performing Lab: Notes/Report: [facility] [address] [place] [address] XRay Report Signed Patient: Spencer Price MR#: [id number] : 1945 Acct:[id number] Age/Sex: 79 / M ADM Date: 11/17/24 Loc: MELVIN Attending Dr: Vikram RUVALCABA Ordering Physician: Vikram Grant Date of Service: 11/17/24 Procedure(s): XR lumbar spine 4V min Accession Number(s): [id number] cc: Trevon Colby MD; Vikram Grant . [...] 11/19/24 1305 DD/ 0855 TD/TT: 11/17/24 0900 Relief Pharmacist: [facility] [address] [place] [address] XRay Report Signed Patient: Spencer Price MR#: [id number] : 1945 Acct:[id number] Age/Sex: 79 / M ADM Date: 11/17/24 Loc: HO.HOSX Attending Dr: Vikram RUVALCABA Ordering Physician: Vikram Grant Date of Service: 11/17/24 Procedure(s): XR lum bar spine 4V min Accession Number(s): [id number] cc: Trevon Colby MD; Vikram Grant . [...] 11/19/24 1305 DD/ 0855 TD/TT: 11/17/24 0900 Relief Pharmacist: MR lumbar spine wo/w con Reviewed date:01/19/2025 08:16:21 PM Interpretation: Performing Lab: Notes/Report: [address] [address] Magnetic Resonance Report Signed Patient: Spencer Price MR#: [id number] : 1945 Acct:[id number] Age/Sex: 79 / M ADM Date: 11/19/24 Loc: HO.MRI Attending Dr: Vikram RUVALCABA Ordering Physician: Vikram Grant Date of Service: 11/19/24 Procedure(s): MR lumbar spine wo/w con Accession Number(s): [id number] cc: Trevon Colby MD; Vikram Grant EXAMINATION: [...] 11/24/24 0953 DD/ 1220 TD/TT: 11/19/24 1312 Relief Pharmacist: [place] [address] Magnetic Resonance Report Signed Patient: Spencer Price MR#: [id number] : 1945 Acct:[id number] Age/Sex: 79 / M ADM Date: 11/19/24 Loc: HO.MRI Attending Dr: Vikram RUVALCABA Ordering Physician: Vikram Grant Date of Service: 11/19/24 Procedure(s): MR lum bar spine wo/w con Accession Number(s): [id number] cc: Trevon Colby MD; Vikram Grant EXAMINATION: [...] by: Akshat Jiang MD 11/24/2024 09:53 AM [facility] Dictated By: Akshat Rivas MD Signed By: <Electronically signed by Akshat Jordan MD in OV> 11/24/24 0953 DD/ 1220 TD/TT: 11/19/24 1312 Relief Pharmacist: Complete Blood Count Auto Di ff Reviewed date:02/04/2025 08:51:44 AM Interpretation: Performing Lab:[facility], [address] [place] [phone] Notes/Report: White Blood Count 5.0 4.8-10.8 X10*3/uL [...] NRBC Abs Auto 0.000 0.0-0.012 X10*3/uL Comprehensive [place]. Panel Fa st Reviewed date:02/04/2025 08:51:44 AM Interpretation: Performing Lab:[facility], [address] [place] [phone] Notes/Report: Sodium 137 135-145 mmol/L Potassium 4.6 [...] Panel Reviewed date:02/04/2025 08:51:45 AM Interpretation: Performing Lab:[address] [address] Notes/Report: Triglycerides 56 <150 mg/dL Desirable Triglyceride: [...] Antigen Reviewed date:02/04/2025 08:51:45 AM Interpretation: Performing Lab:[address] [address] Notes/Report: Prostate Specific Antigen 2.83 <0.05-4.0 ng/mL PSA methodology: Chavez Alinity i Chemiluminescent Microparticle Immunoassay (CMIA) Blood Urea Nitrogen Reviewed date:05/07/2025 04:33:18 AM Interpretation: Performing Lab:[address] [address] Notes/Report: Blood Urea Nitrogen 32 9-16 mg/dL Creatinine Reviewed date:05/07/2025 04:33:18 AM Interpretation: Performing Lab:[address] [address] Notes/Report: Creatinine 1.50 0.5-1.4 mg/dL Estimated Glomerular Filt Rate 45 Chronic Kidney Disease: Estimated GFR < 60 mL/min/1.73m2 Severe Kidney Disease: Estimated GFR < 15 mL/min/1.73m2 CT angio abd aorta runoff Reviewed date:05/07/2025 04:33:18 AM Interpretation: Performing Lab: Notes/Report: [address] [address] [address] Scan Report Signed Patient: Spencer Price MR#: [id number] : 1945 Acct:[id number] Age/Sex: 79 / M ADM Date: 04/16/25 Loc: HO.CT Attending Dr: Rusty Bear MD Ordering Physician: Rusty Bear MD Date of Service: 04/16/25 Procedure(s): CT angio abd aorta runoff Accession Number(s): [id number] cc: Trevon Colby MD; Rusty Bear MD Report Number: [id number]: Total DLP = 787.00 mGy-cm CLINICAL HISTORY: [...] in OV> 04/17/258[address] DD/ 8 TD/TT: 04/17/25848 Relief Pharmacist: [place] [address] CT Scan Report Signed Patient: Spencer Price MR#: [id number] : 1945 Acct:[id number] Age/Sex: 79 / M ADM Date: 04/16/25 Loc: HO.CT Attending Dr: Rusty Bear MD Ordering Physician: Rusty Bear MD Date of Service: 04/16/25 Procedure(s): CT ang io abd aorta runoff Accession Number(s): [id number] cc: Trevon Colby MD; Rusty Bear MD Report Number: [id number]: Total DLP = 787.00 mGy-cm CLINICAL HISTORY: [...] in OV> 04/17/2549 DD/ 8 TD/TT: 04/17/258[address] Relief Pharmacist: Complete Blood Count Auto Di ff Reviewed date:05/07/2025 04:33:18 AM Interpretation: Performing Lab:[facility], [address] [place] [phone] Notes/Report: White Blood Count 4.7 4.8-10.8 X10*3/uL [...] NRBC Abs Auto 0.000 0.0-0.012 X10*3/uL Comprehensive [place]. Panel Fa st Reviewed date:05/07/2025 04:33:18 AM Interpretation: Performing Lab:[facility], [address] [place] [phone] Notes/Report: Sodium 140 135-145 mmol/L Potassium 5.1 [...] Panel Reviewed date:05/07/2025 04:33:18 AM Interpretation: Performing Lab:[facility], [address] [place] [phone] Notes/Report: Triglycerides 46 <150 mg/dL Desirable Triglyceride: [...] ff Reviewed date:05/07/2025 04:33:18 AM Interpretation: Performing Lab:[facility], [address] [place] [phone] Notes/Report: White Blood Count 5.2 4.8-10.8 X10*3/uL [...] Nitrogen Reviewed date:05/07/2025 04:33:18 AM Interpretation: Performing Lab:[address] [address] Notes/Report: Blood Urea Nitrogen 46 9-16 mg/dL Creatinine Reviewed date:05/07/2025 04:33:18 AM Interpretation: Performing Lab:[address] [address] Notes/Report: Creatinine 1.66 0.5-1.4 mg/dL Creatinine Clr [...] Kidney Disease: Estimated GFR < 15 mL/min/1.73m2 Complete Blood Count Auto Di ff Reviewed date:08/02/2025 01:22:03 PM Interpretation: Performing Lab:[address] [address] Notes/Report: White Blood Count 4.8 4.8-10.8 X10*3/uL Red Blood Count 3.75 4.60-5.80 X10*6/uL Hemoglobin 12.4 14.0-18.0 g/dl Hematocrit 37.6 42.0-52.0 % Mean Corpuscular Volume 100.3 80.0-98.0 fL Mean Corpuscular Hemoglobin 33.1 27.0-33.0 pg Mean Corpuscular HGB Conc 33.0 31.0-36.0 g/dl Red Cell Distribution Width 13.2 11.0-16.0 % Platelet Count 258 160-400 X10*3/uL Mean Platelet Volume 9.7 9.4-12.4 fL Neutrophils Percent Auto 48.8 45-73 % Imm Gran Pct Auto 0.4 0.0-0.4 % Lymphocytes Percent Auto 31.3 20-40 % Monocytes Percent Auto 12.7 2-11 % Eosinophils Percent Auto 6.0 0-4 % Basophils Percent Auto 0.8 0-2 % NRBC Pct Auto 0.0 0.0-0.2 /100WBC Neutrophils Absolute Auto 2.4 2.0-8.3 x10*3/u L Imm Gran Abs Auto 0.02 0.00-0.03 X10*3/uL Lymphocytes Absolute Auto 1.5 1.2-4.9 X10*3/u L Monocytes Absolute Auto 0.6 0.1-1.2 X10*3/uL Eosinophils Absolute Auto 0.3 0.0-0.4 X10*3/u L Basophils Absolute Auto 0.0 0.0-0.2 X10*3/uL NRBC Abs Auto 0.000 0.0-0.012 X10*3/uL Comprehensive [place]. Panel Fa st Reviewed date:08/02/2025 01:22:03 PM Interpretation: Performing Lab:[facility], [address] [place] [phone] Notes/Report: Sodium 140 135-145 mmol/L Potassium 4.6 3.3-5.1 mmol/L Chloride 106 96-108 mmol/L Carbon Dioxide 28 22-29 mmol/L Anion Gap 11 12-20 Blood Urea Nitrogen 32 9-16 mg/dL Creatinine 1.44 0.5-1.4 mg/dL Estimated Glomerular Filt Rate 47 Chronic Kidney Disease: Estimated GFR < 60 mL/min/1.73m2 Severe Kidney Disease: Estimated GFR < 15 mL/min/1.73m2 Glucose Fasting 90 60-99 mg/dL Calcium 9.7 8.4-10.2 mg/dL Bilirubin Total 1.1 0.0-1.0 mg/dL Aspartate Amino Transferase 33 5-37 U/L Alanine Aminotransferase 16 0-40 U/L Total Protein 6.7 6.5-8.0 g/dL Albumin Level 4.1 3.5-5.0 g/dL Alkaline Phosphatase 89 39-117 U/L Lipid Panel Reviewed date:08/02/2025 01:22:03 PM Interpretation: Performing Lab:[facility], [address] [place] [phone] Notes/Report: Triglycerides 48 <150 mg/dL Desirable Triglyceride: less than 150 mg/dL Borderline High Triglyceride 150-199 mg/dL High Triglyceride: 200-499 mg/dL Very High Triglyceride: greater than or equal to 5OO mg/dL Cholesterol 110 <200 mg/dL Desirable Cholesterol: less than 200 mg/dL Borderline High Cholesterol: 200-239 mg/dL High Cholesterol: greater than 239 mg/dL LDL Cholesterol Calculated 50 <100 mg/dL Desirable LDL: less than 100 mg/dL Near Optimal/Above Optimal LDL: 110-129 mg/dL Borderline High LDL: 130-159 mg/dL High LDL: 160-189 mg/dL Very High LDL: greater than or equal to 190 mg/dL HDL Cholesterol 51 >40 mg/dL Desirable HDL: greater than 40 mg/dL Note: This HDL assay may give artificially low results in patients with liver disease. Reason For Referral No Information Medications Medication SIG (Take, Route, Frequency, Duration) Notes Start Date End Date Status Naproxen 500 MG 1 tablet with food o r milk Orally every 12 hrs Active Metoprolol Succinate ER SUC 50MG 1 tablet Orally Once a day Active Eucerin Active Ezetimibe 10 MG 1 tablet Orally Once a day 01/20/2025 Active Atorvastatin Calcium 80 MG 1 tablet Oral ly Once a day 01/20/2025 Active Aspirin Adult Low Dose 81 MG 1 tablet Orally Once a day Active Lisinopril-hydroCHLOROthiaz racheal 10-12.5 MG 1 tablet Orally twice a day Active Immunizations Vaccine Route Administration [...] Problem Status W/U Status Risk Notes Problem 2921393 Former smoker (Z87.891) Active confirmed He is highly motivated not to smoke and we discussed means of preserving abstinence in times of stress. Problem 39189123 Hyperlipidemia (E78.5) Active confirmed His total cholesterol level is low. His lipids are in near target range. No change in his medications was made. His lipids were reviewed. He will have fasting lipid profile in the near future. Problem 425107375 Overweight (E66.3) Active confirmed His body mass [...] weight maintenance diet low in cholesterol. Problem 162081926 Tubular adenoma (D36.9) Active confirmed He will continue to undergo colonoscopies every 5 years. Problem 97906782 Carpal tunnel syndrome, right upper limb (G56.01) Active confirmed He has seen the orthopedic surgeon and will undergo surgery for carpal tunnel syndrome on the right later this month. He is cleared for surgery at this time. Problem 82750578 Coronary artery disease (I25.10) Active confirmed His angina is stable. He reports none recently. He was compliant with all of his medications since his last visit. No change in his regimen was needed. Problem 635908378 BPH (benign prostatic hyperplasia) (N40.0) Active confirmed He arises from sleep once or twice a night to urinate. We have discussed lifestyle modifications he could make to reduce nocturia. Problem 502448244 Peripheral vascular disease (I73.9) Active confirmed He [...] and was thought to be stable. 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 He has an upcoming appointment with a neurosurgeon at the end of this month. Problem 976543271 Erectile dysfunction (N52.9) Active confirmed This is well compensated with medications. Problem 276430741 Osteoarthritis of right hip (M16.11) Active confirmed . He describes a hip pain as mild today. Problem 21138377 Spinal stenosis, lumbar (M48.06) Active confirmed The lumbar fusiontook place without side effects or incidents. He notices a substantial improvement in his back pain. The wound is well-healed. He reports much less pain with ambulation. 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 The discomfort has resolved. Problem Pulmonary emphysema (06161804) Emphysema lung (J43.9) Active confirmed He is no longer smoking. He is short of breath with sustained exertion but is comfortable breathing room air at rest. Problem 953887872 History of bladder cancer (Z85.51) Active confirmed There was no sign of cancer on his exam today. He recently had a cystoscopy, March 2024 which showed no gross recurrence. Surveillance will continue Problem 874493689 Stage 2 chronic kidney disease (N18.2) Active confirmed His renal function is stable and will be followed carefully. Problem 8112832346204 Recurrent epistaxis (R04.0) Active confirmed He will continue the use of aspirin. He was instructed on techniques to stop bleeding. He was instructed to go to the emergency room if bleeding does not stop. If this continues he will see ENT for definitive treatment. 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 This is likely entire operative. We have discusssed the healing of nerve tissue ttoday. Vital Signs Heart Rate 57 /min 08/06/2025 Temperature 97.3 degrees Fahrenheit 08/06/2025 Blood pressure diastolic 64 mm Hg 08/06/2025 Height 66 in 08/06/2025 Blood pressure systolic 129 mm Hg 08/06/2025 Weight 169 lbs 08/06/2025 BMI 27.27 kg/m2 08/06/2025 Encounters Encounter Location Date Provider Diagnosis Trevon Colby III, MD [address] [place] [address] [place] [address] 10/13/2024 Trevon Colby Hyperlipidemia E78.5 ; Spinal stenosis, lumbar M48.06 ; Overweight E66.3 ; BPH (benign prostatic hyperplasia) N40.0 ; Former smoker Z87.891 ; History of bladder cancer Z85.51 ; Peripheral vascular disease I73.9 ; Osteoarthritis of right hip M16.11 ; Coronary artery disease I25.10 ; Stage 2 chronic kidney disease N18.2 and Emphysema lung J43.9 Trevon Colby III, MD [address] [place] [address] [place] [address] 02/11/2025 Trevon Colby Injury of left peron eal nerve, sequela S84.12XS ; Hyperlipidemia E78.5 ; Stage 2 chronic kidney disease N18.2 ; Osteoarthritis of right hip M16.11 ; Overweight E66.3 ; Spinal stenosis, lumbar M48.06 ; BPH (benign prostatic hyperplasia) N40.0 ; Former smoker Z87.891 and Peripheral vascular disease I73.9 Trevon Colby III, MD [address] [place] [address] [place] [address] 04/13/2025 Trevon Colby Hyperlipidemia E78.5 ; Recurrent epistaxis R04.0 ; Osteoarthritis of right hip M16.11 ; Spinal stenosis, lumbar M48.06 ; Former smoker Z87.891 and Peripheral vascular disease I73.9 Trevon Colby III, MD [address] [place] [address] [place] [address] 05/05/2025 Trevon Colby Hyperlipidemia E78.5 ; Peripheral [...] Emphysema lung J43.9 Trevon Colby III, MD [address] [place] [address] [place] [address] 08/06/2025 Trevon Colby Hyperlipidemia E78.5 ; Coronary artery disease I25.10 ; Stage 2 chronic kidney disease N18.2 ; Osteoarthritis of right hip M16.11 ; Overweight E66.3 ; Spinal stenosis, lumbar M48.06 ; BPH (benign prostatic hyperplasia) N40.0 ; History of bladder cancer Z85.51 ; Emphysema lung J43.9 and Peripheral vascular disease I73.9 Trevon Colby III, MD [address] [place] [address] [place] [address] 11/28/2024 Trevon Colby Hyperlipidemia E78.5 Trevon Colby III, MD [address] [place] [address] [address] [place] [address] 12/12/2024 Trevon Colby Hyperlipidemia E78.5 Trevon Colby III, MD [address] [place] [address] [place] [address] 01/19/2025 Trevon Colby III, MD [address] [place] [address] [place] [address] 01/20/2025 Trevon Colby III, MD [address] [place] [address] [address] [place] [address] 05/07/2025 Trevon Colby Assessments Encounter Date Diagnosis [...] 2024 and was thought to be stable. 08/06/2025 Hyperlipidemia (ICD-10 - E78.5) His total [...] No change in his regimen was needed. 11/28/2024 Hyperlipidemia (ICD-10 - E78.5) His total [...] lipid profile in the near future. 10/13/2024 Overweight (ICD-10 - E66.3) He weighs [...] weight maintenance diet low in cholesterol. 08/06/2025 Stage 2 chronic kidney disease (ICD-10 - N18.2) His renal function is stable and will be followed carefully. 10/13/2024 BPH (benign prostati c hyperplasia) (ICD-10 [...] a hip pain as mild today. 08/06/2025 Osteoarthritis of right hip (ICD-10 - M16.11) . He describes a hip pain as mild today. 10/13/2024 Former smoker (ICD-1 0 - Z87.891) [...] reports much less pain with ambulation. 08/06/2025 Overweight (ICD-10 - E66.3) His body [...] healthy weight maintenance diet low in cholesterol. 10/13/2024 History of bladder cancer (ICD-10 - [...] neurosurgeon at the end of this month. 08/06/2025 Spinal stenosis, lumbar (ICD-10 - M48.06) The lumbar fusiontook place without side effects or incidents. He notices a substantial improvement in his back pain. The wound is well-healed. He reports much less pain with ambulation. 10/13/2024 Peripheral vascular disease (ICD-10 - I73.9) [...] is cleared for surgery at this time. 08/06/2025 BPH (benign prostati c hyperplasia) (ICD-10 - N40.0) He arises from sleep once or twice a night to urinate. We have discussed lifestyle modifications he could make to reduce nocturia. 10/13/2024 Osteoarthritis of right hip (ICD-10 - [...] no gross recurrence. Surveillance will continue 08/06/2025 History of bladder cancer (ICD-10 - Z85.51) There was no sign of cancer on his exam today. He recently had a cystoscopy, March 2024 which showed no gross recurrence. Surveillance will continue 10/13/2024 Coronary artery disease (ICD-10 - I25.10) He has had no recent palpitations, angina, syncope or nausea. He has been compliant with all of his medications. He saw his traffic officer this month who found him to be [...] all of his medications. He saw his traffic officer this month who found him to be stable and gave him an appointment to return in one year. 08/06/2025 Emphysema lung (ICD-10 - J43.9) He [...] I have encouraged him to stay hydrated. 08/06/2025 Peripheral vascular disease (ICD-10 - I73.9) [...] and was thought to be stable. 10/13/2024 Emphysema lung (ICD-10 - J43.9) He [...] Date PROFILE, FASTING (COMPREHENSIVE METABOLI C) 05/01/2024 PROFILE, [...] C) 04/22/2021 PROFILE, FASTING (COMPREHENSIVE METABOLI C) 02/11/2025 PROFILE, FASTING (COMPREHENSIVE METABOLI C) 08/06/2025 PROFILE, FASTING (COMPREHENSIVE METABOLI C) 05/20/2020 PROFILE, FASTING (COMPREHENSIVE METABOLI C) 11/29/2023 PROFILE, FASTING (COMPREHENSIVE METABOLI C) 10/13/2024 PROFILE, FASTING (COMPREHENSIVE METABOLI C) 12/23/2018 PROFILE, FASTING (COMPREHENSIVE METABOLI C) 10/26/2021 PROFILE, FASTING (COMPREHENSIVE METABOLI C) 11/25/2020 PROFILE, RANDOM (COMPREHENSIVE METABOLIC ) 06/26/2023 LIPID PANEL 10/26/2021 LIPID PANEL 11/25/2020 LIPID PANEL 06/03/2018 LIPID PANEL 01/12/2020 LIPID PANEL 08/25/2020 LIPID PANEL 07/25/2021 LIPID PANEL 03/04/2018 LIPID PANEL 04/22/2019 LIPID PANEL 04/22/2021 LIPID PANEL 05/20/2020 LIPID PANEL 06/26/2023 LIPID PANEL 12/23/2018 PSA, TOTAL 06/26/2023 PSA, TOTAL 10/26/2021 PSA, TOTAL 05/01/2024 PSA, TOTAL 06/03/2018 PSA, TOTAL 02/28/2024 PSA, TOTAL 08/25/2020 PSA, TOTAL 03/04/2018 PSA, TOTAL 04/22/2019 PSA, TOTAL 04/22/2021 PSA, TOTAL 10/13/2024 CBC w DIFF 05/20/2020 CBC w DIFF 04/22/2021 CBC w DIFF 12/23/2018 CBC w DIFF 05/05/2025 CBC w DIFF 11/25/2020 CBC w DIFF 06/26/2023 CBC w DIFF 10/26/2021 CBC w DIFF 01/12/2020 CBC w DIFF 06/03/2018 CBC w DIFF 07/25/2021 CBC w DIFF 02/28/2024 CBC w DIFF 02/11/2025 CBC w DIFF 08/25/2020 CBC w DIFF 03/04/2018 CBC w DIFF 08/06/2025 CBC w DIFF 04/22/2019 Echocardiogram 01/31/2023 PFT with DLCO 02/01/2023 CBC WITH AUTO DIFF 10/13/2024 CBC WITH AUTO DIFF 05/01/2024 CBC WITH AUTO DIFF 11/29/2023 Lipid Panel 08/06/2025 Lipid Panel 11/29/2023 Lipid Panel 10/13/2024 Lipid Panel 05/05/2025 Lipid Panel 05/01/2024 Lipid Panel 02/28/2024 Lipid Panel 02/11/2025 ECG 12 lead EKG 08/23/2023 Next Appt Details Provider Name:Trevon Colby , 10/29/2025 09:45:00 AM, [address] [place] [address] [address], [place], [address], Provider Name:Trevon Colby , 05/06/2026 09:30:00 AM, [address] [place] [address] [address], [place], [address], Insurance Providers Payer Name Payer Address Payer Phone Subscriber Number Group Number Insured Name Patient Relationship to Insured Coverage Start Date Coverage End Date [facility] [address] [facility] [address] [place] [phone] [id number] Albert Spencer Self - patient is the insured MEDICARE NGS [address] [place] [phone] [id number] Spencer Price Self - patient is the [...] 17 Surgical History Surgery Date(Month/Year) [place] [facility] [place] Left femoral endarterectomy, right superficial Femoral artery atherectomy and angioplasty 06/2018 Right popliteal and peroneal artery athe rectomy and angioplasty 12/2017 Angioplasty right peroneal and popliteal artery 04/13/2021 Lumbar L3-5 Laminectomy, par tial facetectomy, foraminotomy, [facility], Dr Baltazar 10/25/[address] Bear [...]
--- OUTSIDE RECORDS SUMMARY | 2025-08-11 08:42 | XMS_ITS | Encounter Summary ---
Author Organization [facility] Address [address] [place] [address] Care Team Providers Care Hardwood Faller Name Role Phone Physician, Pcp Unknown Primary Care Provider Lo vailable Encounter Details Date Type Department Care Team (Late st Contact Info) Description 06/15/2025 Lab Requisition [facility] - Main Lab [address] [place] [id number] Kleber Rodriguez MD [address] [place] [address] Malignant neoplasm of overlapping sites [...] AM EDT) Final Diagnosis A. Urine, Voided, [id number]: Negative for high grade urothelial carcinoma. Results of [employer] fluorescence in situ hybridization (FISH) testing: CEP3: Normal CEP7: Normal CEP17: Normal LSI 9p21: Normal Interpretation: Normal profile Controls stained appropriately. Note: The results are intended as a screening device and should be interpreted in association with other clinical and pathological findings. 06/23/2025 9:[address] [facility] Specimen A Adequacy Satisfactory for evaluation 06/23/2025 9:[address] [facility] Clinical Information Malignant neoplasm of overlapping sites of bladder C67.8 Urine Cytology/FISH (now) 06/23/2025 9:[address] [facility] Gross Description A. Urine, Voided, [id number]: Received one ThinPrep slide for cytology and one ThinPrep slide for UroV[employer]ion FISH 06/23/2025 9:[address] [facility] Disclaimer Unless otherwise specified, all tissue is 10% NB formalin fixed and paraffin embedded. Technical pathology services provided by [facility] at [address], [place] [address] (CLIA #[id number]/Jacque Good MD, Slot Floor Attendant) 06/23/2025 9:[address] [facility] Urine Urine specimen from urethra / Unknown 06/08/2025 06/15/2025 9:32 AM EDT us Kleber Rodriguez MD LAB CYTOLOGY ORDERABLES Final R esult [facility] [address] [place] [address], documented in this encounter Visit Diagnoses Diagnosis Malignant neoplasm of overlapping sites of bladder (CMS/HCC V24, CMS/HCC V28) documented in this encounter Care Teams Hardwood Faller Relationship Specialty Start Date End Date Physician, Pcp Unknown PCP - General 06/15/25 documented as of this encounter
== END 2025-08-11 08:22 | disposition home or self-care (01) ==
LOC: HO.US 08:21
PROVIDERS: PCP Internal Medicine Medical Oncology; Visit Provider Surgery Vascular Surgery
DX: I73.9 Peripheral vascular disease, unspecified (principal)
CPT/HCPCS: 93922; 93925

== ENCOUNTER → 2025-08-11 08:24 | Outpatient (BNV) | payer MEDICARE, SELFPAY | PROVIDERS: PCP Internal Medicine Medical Oncology; Visit Provider Radiology Diagnostic Radiology | DX: I73.9 Peripheral vascular disease, unspecified (principal) | CPT/HCPCS: 93922; 93925 ==

== ENCOUNTER 2025-08-13 08:20 | Outpatient (REF) | payer MEDICARE, SELFPAY ==
--- OUTSIDE RECORDS SUMMARY | 2025-02-11 06:00 | XMS_ITS ---
Author Organization Trevon Colby III, MD Address [address] [place] [address] [place] [address] Care Team Providers Care Wool Sampler Name Role Phone Dr. 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) [...] Date Provider Diagnosis Trevon Colby III, MD [address] [place] [address] [place] [address] 02/11/2025 Trevon Colby Injury of left peron [...] Provider Name:Trevon Colby , 10/29/2025 09:45:00 AM, [address] [place] [address] DR [address] Carmela, [place], [address], Provider Name:Trevon Colby , 05/06/2026 09:30:00 AM, [address] [place] [address] [address] DANIELSON, [place], [address], Progress Notes * Spencer PRICEDOB:[birth year] (79 yo M)Acc No.[id number]:02/11/2025 Progress Notes Patient: Spencer PATEL Provider: Eduar Colby MD :1945 A ge:79 Y S ex:Male Date:02/11/2025 Address: [id number] Subjective: * Chief Complaints: * R ecent spine surgeryPeripheral arterial diseaseNumbness in both feetLeft peroneal nerve injurySpinal stenosisBenign prostatic hypertrophyEmphysemaChronic renal diseaseCoronary artery diseaseHistory of bladder cancer * HPI: C OVID-19 Screening: Kelley rangel returns for a scheduled visit to manage his numerous medical issues at the age of 79. On September 18, 2025 at [facility] by [address] Baltazar he had and [...] Bear 1Lumbar L3-5 Laminectomy, partial facetectomy, foraminotomy, [facility], Dr Baltazar 3Angioplasty right peroneal and popliteal artery 1Right popliteal and peroneal artery atherectomy and angioplasty 12/2017Left femoral endarterectomy, right superficial Femoral artery atherectomy and angioplasty 06/[id number] fusion [facility] [place] 09/18/2024 * Hospitalization/Major Diagno stic Procedure: B [...] 0 02/11/2025 Generated for Allison jimenez/Bhavin/Nakul on: 08:32 AM EDT History and Physical Notes * [...]
--- OUTSIDE RECORDS SUMMARY | 2025-04-13 09:30 | XMS_ITS ---
Author Organization Trevon Colby III, MD Address [address] [place] [address] [place] [address] Care Team Providers Care Forest Ecologist Name Role Phone Dr. Trevon Colby [...] Problem Status W/U Status Risk Notes Problem [id number] Recurrent epistaxis (R04.0) Active confirmed He will [...] Provider Diagnosis Trevon Colby III, MD [address] [place] [address] [place] [address] 04/13/2025 Trevon Colby Hyperlipidemia E78.5 ; Recurrent [...] Name:Trevon Colby , 10/29/2025 09:45:00 AM, [address] [place] [address] [address], [place], [address], Provider Name:Trevon Colby , 05/06/2026 09:30:00 AM, [address] [place] [address] [address], [place], [address], Progress Notes * Spencer PRICEDOB:[birth year] (79 yo M)Acc No.[id number]:04/13/2025 Progress Notes Patient: Spencer PATEL Provider: Eduar Colby MD :1945 A ge:79 Y S ex:Male Date:04/13/2025 Address:[address] [place] [address] [place], [phone] Subjective: * Chief [...] Bear 1Lumbar L3-5 Laminectomy, partial facetectomy, foraminotomy, [facility], Dr Baltazar 3Angioplasty right peroneal and popliteal artery 04/13/2021ight popliteal and peroneal artery atherectomy and angioplasty 12/2017Left femoral endarterectomy, right superficial Femoral artery atherectomy and angioplasty 06/[id number] fusion [facility] [place] 09/18/2024 * Hospitalization/Major Diagno [...] 0 04/13/2025 Generated for Allison jimenez/Bhavin/eTreinasmitting on: 1 08:32 AM EDT History and Physical Notes [...]
--- OUTSIDE RECORDS SUMMARY | 2025-05-05 05:30 | XMS_ITS ---
Author Organization Trevon Colby III, MD Address [address] [place] [address] [place] [address] Care Team Providers Care Belt Knife Feeder Name Role Phone Dr. Trevon Colby III Primary Care Provider [phone] Allergies Allergen (clinical drug ingredient) Drug/Non Drug [...] Date Provider Diagnosis Trevon Colby III, MD [address] [place] [address] DR FAITH [facility] [address] 05/05/2025 Trevon Colby Hyperlipidemia E78.5 ; Peripheral [...] all of his medications. He saw his jewelsmith this month who found him to be [...] Provider Name:Trevon Colby , 10/29/2025 09:45:00 AM, [address] [place] [address] JORGE ALBERTO DANIELSON, [place], [address], Provider Name:Trevon Colby , 05/06/2026 09:30:00 AM, [address] [place] [address] [place], [address], Progress Notes * Spencer PR[birth year]EDOB:[birth year] (79 yo M)Acc No.[id number]:05/05/2025 Progress Notes Patient: Spencer PATEL Provider: Eduar [...] Bear 1Lumbar L3-5 Laminectomy, partial facetectomy, foraminotomy, [facility], Dr Baltazar 3Angioplasty right peroneal and popliteal artery 1Right popliteal and peroneal artery atherectomy and angioplasty 12/2017Left femoral endarterectomy, right superficial Femoral artery atherectomy and angioplasty 06/[id number] fusion [facility] [place] 09/18/2024 * Hospitalization/Major Diagno stic Procedure: B [...] all of his medications. He saw his jewelsmith this month who found him to be [...] 05/05/2025 Generated for Allison jimenez/Bhavin/Demetriaitting on: 1 08:32 AM EDT History and [...]
--- OUTSIDE RECORDS SUMMARY | 2025-05-07 06:27 | XMS_ITS ---
Author Organization Trevon Colby III, MD Address [address] [place] [address] [place] [address] Care Team Providers Care Inserter Name Role Phone Dr. Trevon Colby III Primary Care Provider [phone] REASON FOR VISIT ? Rx Social History Sex Assigned At : Social History Observation Description Sex Assigned At Male Encounters Encounter Location Date Provider Diagnosis Trevon Colby III, MD [address] [place] [address] [place] [address] 05/07/2025 Trevon Colby Plan Of Treatment Next Appt Details Provider Name:Trevon Colby , 10/29/2025 09:45:00 AM, [address] [place] [address] [place], [address], Provider Name:Trevon Colby , 05/06/2026 09:30:00 AM, [address] [place] [address] JORGE ALBERTO DANIEL[place], [address], Progress Notes * Spencer PRICEDOB:[birth year] (79 yo M)Acc No.[id number]:05/07/2025 Patient: Spencer PATEL :1945 A ge:79 Y S ex:Male Address:[address] [place], [address] * true * Date: Generated for Printi ng/Faxing/eTransmitting on: 1 08:32 AM EDT
--- OUTSIDE RECORDS SUMMARY | 2025-08-06 05:45 | XMS_ITS ---
Author Organization Trevon Colby III, MD Address [address] [place] [address] [place] [address] Care Team Providers Care Filter Washer And Presser Name Role Phone Dr. Trevon Colby III [...] Date Provider Diagnosis Trevon Colby III, MD [address] [place] [address] [place] [address] 08/06/2025 Trevon Colby Hyperlipidemia E78.5 ; Coronary [...] Provider Name:Trevon Colby , 10/29/2025 09:45:00 AM, [address] [place] [address] , [facility] [address], [place], [address], Provider Name:Trevon Szymanskine , 05/06/2026 09:30:00 AM, [address] [place] [address] [address]EL[address], [place], [address], Progress Notes * Spencer PRICEDOB:[birth year] (80 yo M)Acc No.[id number]:08/06/2025 Progress Notes Patient: Spencer PATEL Provider: Eduar Colby MD :1945 A ge:80 Y S ex:Male Date:08/06/2025 Address:[address] [place] [address], [phone] Subjective: * Chief Complaints: * P [...] Bear 1Lumbar L3-5 Laminectomy, partial facetectomy, foraminotomy, [facility], Dr Baltazar 3Angioplasty right peroneal and popliteal artery 1Right popliteal and peroneal artery atherectomy and angioplasty 12/2017Left femoral endarterectomy, right superficial Femoral artery atherectomy and angioplasty 06/[id number] fusion [facility] 09/18/2024 * Hospitalization/Major Diagno stic Procedure: B [...] 08/06/2025 Generated for Printi ng/Faxing/eTransmitting on: 1 08:31 AM EDT History and Physical Notes * [...]
--- NOTE | ~2025-08-13 | FL_ITS ---
EXAMINATION: XR FLUOROSCOPY WITH IMAGES CLINICAL INFORMATION: Lumbosacral pain management procedure. COMPARISON: None available. TECHNIQUE: Fluoroscopy provided to: Dr. Sparks Fluoroscopy time: 0.1 minutes DAP: [id number] mGycm2 Images: 2 FINDINGS: 2 fluoroscopic spot images of the sacrum taken during pain management injection. Please refer to the full procedural report for details. FL/FL guidance in treatment room IMPRESSION: Fluoroscopic guidance. Electronically signed by: Joao Brennan MD 08/13/2025 02:13 PM EDT
--- OUTSIDE RECORDS SUMMARY | 2025-08-13 08:32 | XMS_ITS | Patient Health Record ---
Author Organization Trevon Colby III, MD Address [address] [place] [address] [address] [place] [address] Care Team Providers Care Anthropologist Physical Name Role Phone Dr. Trevon Colby III Primary Care Provider [phone] Allergies Allergen (clinical drug ingredient) Drug/Non Drug [...] Screen Reviewed date:09/07/2024 06:31:42 AM Interpretation: Performing Lab:[facility], [address] [place] [phone] Notes/Report: WITNESSED BY [facility] NURSING: Call Blood Bank (ext. [phone]) to band patient on admission. Type and Screen in effect until 2300 on 09-17-2024 Spec expiration changed by SHOBHA on 09/03/24 Reason: PAT SPEC 09/17/24 Blood Type OP Antibody Screen NEGATIVE Glucose, Whole Blood Reviewed date:09/18/2024 09:17:25 AM Interpretation: Performing Lab:[facility], [address] [place] [phone] Notes/Report: Glucose, Whole Blood 178 60-115 mg/dL METER # : [id number] FL guidance in OR Reviewed date:09/23/2024 08:42:28 AM Interpretation: Performing Lab: Notes/Report: [address] [address] Fluoroscopy Report Signed Patient: Spencer Price MR#: [id number] : 1945 Acct:[id number] Age/Sex: 79 / M ADM Date: 09/17/24 Loc: HO.S3 344-[address]: Vikram RUVALCABA Ordering Physician: George Baltazar MD, PhD Date of Service: 09/17/24 Procedure(s): FL guidance in OR Accession Number(s): [id number] cc: Trevon Colby MD; George Baltazar MD, [...] by: Gillian Onofre MD 09/18/2024 12:40 PM [facility] Dictated By: Gillian Onofre MD Signed By: <Electronically signed by Gillian Onofre MD in OV> 09/18/24 1240 DD/ 0740 TD/TT: 09/17/24 1025 Operations Technician: KAIDEN [address] [address] Fluoroscopy Report Signed Patient: Spencer Price MR#: [id number] : 1945 Acct:[id number] Age/Sex: 79 / M ADM Date: 09/17/24 Loc: HO.S3 344-[address]: Vikram RUVALCABA Ordering Physician: George Baltazar MD, PhD Date of Service: 09/17/24 Procedure(s): FL guidance in OR Accession Number(s): [id number] cc: Trevon Colby MD; George Baltazar MD, [...] by: Gillian Onofre MD 09/18/2024 12:40 PM [facility] Dictated By: Gillian Onofre MD Signed By: <Electronically signed by Gillian Onofre MD in OV> 09/18/24 1240 DD/ 0740 TD/TT: 09/17/24 1025 Operations Technician: PN Complete Blood Count Auto Di ff Reviewed date:09/23/2024 08:42:28 AM Interpretation: Performing Lab:[facility], [address] [place] [phone] Notes/Report: White Blood Count 11.7 4.8-10.8 X10*3/uL [...] date:01/19/2025 08:16:21 PM Interpretation: Performing Lab: Notes/Report: [place] [address] Ultrasound Report Signed Patient: Spencer Price MR#: [id number] : 1945 Acct:[id number] Age/Sex: 79 / M ADM Date: 11/06/24 Loc: . Attending Dr: Rusty Bear MD Ordering Physician: Rusty Bear MD Date of Service: 11/06/24 Procedure(s): US arterial duplex BI w/ NA Accession Number(s): [id number] cc: Trevon Colby MD; Rusty Bear MD [...] Stent from the proximal to mid SFA: Yuhaaviatam artery proximal to stent: 97 cm/s Proximal stent: 142 cm/s Mid stent: 119 cm/s Distal stent: 172 cm/s Yuhaaviatam artery distal to stent: 154 cm/s Superficial femoral artery (mid): 154 cm/s. Stent from mid to distal SFA: Yuhaaviatam artery proximal to stent: 145 cm/s Proximal stent: 136 cm/s Mid stent: 121 cm/s Distal stent: 146 cm/s Yuhaaviatam artery distal to stent: 94 cm/s Diastolic [...] by: Yair Guaman MD 11/24/2024 12:37 PM [facility] Dictated By: Yair Guaman MD Signed By: <Electronically signed by Yair Guaman MD in OV> 11/24/24 1237 DD/ 1315 TD/TT: 11/06/24 1400 Operations Technician: [address] [address] Ultrasound Report Signed Patient: Spencer Price MR#: [id number] : 1945 Acct:[id number] Age/Sex: 79 / M ADM Date: 11/06/24 Loc: HO.US Attending Dr: Rusty Bear MD Ordering Physician: Rusty Bear MD Date of Service: 11/06/24 Procedure(s): US arterial duplex BI w/ NA Accession Number(s): [id number] cc: Trevon Colby MD; Rusty Bear MD [...] from the proxi mal to mid SFA: Yuhaaviatam artery proxim al to stent: 97 cm/s Proximal stent: 142 cm/s Mid stent: 119 cm/s Distal stent: 172 cm/s Yuhaaviatam artery distal to stent: 154 cm/s Superficial femoral artery (mid): 154 cm/s. Stent from mid to distal SFA: Yuhaaviatam artery proxim al to stent: 145 cm/s Proximal stent: 136 cm/s Mid stent: 121 cm/s Distal stent: 146 cm/s Yuhaaviatam artery distal to stent: 94 cm/s Diastolic [...] by: Yair Guaman MD 11/24/2024 12:37 PM [facility] Dictated By: Yair Guaman MD Signed By: <Electronically signed by Yair Guaman MD in OV> 11/24/24 1237 DD/ 1315 TD/TT: 11/06/24 1400 Operations Technician: XR lumbar spine 4V min Reviewed date:01/19/2025 08:16:21 PM Interpretation: Performing Lab: Notes/Report: [facility] [address] [place] [address] XRay Report Signed Patient: Spencer Price MR#: [id number] : 1945 Acct:[id number] Age/Sex: 79 / M ADM Date: 11/17/24 Loc: MELVIN Attending Dr: Vikram RUVALCABA Ordering Physician: Vikrma Grant Date of Service: 11/17/24 Procedure(s): XR lumbar spine 4V min Accession Number(s): [id number] cc: Trevon Colby MD; Vikram Grant . [...] 11/19/24 1305 DD/ 0855 TD/TT: 11/17/24 0900 Operations Technician: [facility] [address] [place] [address] XRay Report Signed Patient: Spencer Price MR#: [id number] : 1945 Acct:[id number] Age/Sex: 79 / M ADM Date: 11/17/24 Loc: HO.HOSX Attending Dr: Vikram RUVALCABA Ordering Physician: Vikram Grant Date of Service: 11/17/24 Procedure(s): XR lum bar spine 4V min Accession Number(s): [id number] cc: Trevon Colby MD; Vikram Grant . [...] MD Signed By: <Electronically signed by Akshat Jodran MD in OV> 11/19/24 1305 DD/ 0855 TD/TT: 11/17/24 0900 Operations Technician: MR lumbar spine wo/w con Reviewed date:01/19/2025 08:16:21 PM Interpretation: Performing Lab: Notes/Report: [address] [address] Magnetic Resonance Report Signed Patient: Spencer Price MR#: [id number] : 1945 Acct:[id number] Age/Sex: 79 / M ADM Date: 11/19/24 Loc: HO.MRI Attending Dr: Vikram RUVALCABA Ordering Physician: Vikram Grant Date of Service: 11/19/24 Procedure(s): MR lumbar spine wo/w con Accession Number(s): [id number] cc: Trevon Colby MD; Vikram Grant EXAMINATION: [...] 11/24/24 0953 DD/ 1220 TD/TT: 11/19/24 1312 Operations Technician: [place] [address] Magnetic Resonance Report Signed Patient: Spencer Price MR#: [id number] : 1945 Acct:[id number] Age/Sex: 79 / M ADM Date: 11/19/24 Loc: HO.MRI Attending Dr: Vikram RUVALCABA Ordering Physician: Vikram Grant Date of Service: 11/19/24 Procedure(s): MR lum bar spine wo/w con Accession Number(s): [id number] cc: Trevon Colby MD; Vikram Grant EXAMINATION: [...] by: Akshat Jiang MD 11/24/2024 09:53 AM [facility] Dictated By: Akshat Rivas MD Signed By: <Electronically signed by Akshat Jordan MD in OV> 11/24/24 0953 DD/ 1220 TD/TT: 11/19/24 1312 Operations Technician: Complete Blood Count Auto Di ff Reviewed date:02/04/2025 08:51:44 AM Interpretation: Performing Lab:[facility], [address] [place] [phone] Notes/Report: White Blood Count 5.0 4.8-10.8 X10*3/uL [...] NRBC Abs Auto 0.000 0.0-0.012 X10*3/uL Comprehensive [place]. Panel Fa st Reviewed date:02/04/2025 08:51:44 AM Interpretation: Performing Lab:[facility], [address] [place] [phone] Notes/Report: Sodium 137 135-145 mmol/L Potassium 4.6 [...] Panel Reviewed date:02/04/2025 08:51:45 AM Interpretation: Performing Lab:[address] [address] Notes/Report: Triglycerides 56 <150 mg/dL Desirable Triglyceride: [...] Antigen Reviewed date:02/04/2025 08:51:45 AM Interpretation: Performing Lab:[address] [address] Notes/Report: Prostate Specific Antigen 2.83 <0.05-4.0 ng/mL PSA methodology: Chavez Alinity i Chemiluminescent Microparticle Immunoassay (CMIA) Blood Urea Nitrogen Reviewed date:05/07/2025 04:33:18 AM Interpretation: Performing Lab:[address] [address] Notes/Report: Blood Urea Nitrogen 32 9-16 mg/dL Creatinine Reviewed date:05/07/2025 04:33:18 AM Interpretation: Performing Lab:[address] [address] Notes/Report: Creatinine 1.50 0.5-1.4 mg/dL Estimated Glomerular Filt Rate 45 Chronic Kidney Disease: Estimated GFR < 60 mL/min/1.73m2 Severe Kidney Disease: Estimated GFR < 15 mL/min/1.73m2 CT angio abd aorta runoff Reviewed date:05/07/2025 04:33:18 AM Interpretation: Performing Lab: Notes/Report: [address] [address] [address] Scan Report Signed Patient: Spencer Price MR#: [id number] : 1945 Acct:[id number] Age/Sex: 79 / M ADM Date: 04/16/25 Loc: HO.CT Attending Dr: Rusty Bear MD Ordering Physician: Rusty Bear MD Date of Service: 04/16/25 Procedure(s): CT angio abd aorta runoff Accession Number(s): [id number] cc: Trevon Colby MD; Rusty Bear MD Report Number: [id number]: Total DLP = 787.00 mGy-cm CLINICAL HISTORY: [...] in OV> 04/17/25848 DD/ 8 TD/TT: 04/17/25848 Operations Technician: [place] [address] CT Scan Report Signed Patient: Spencer Price MR#: [id number] : 1945 Acct:[id number] Age/Sex: 79 / M ADM Date: 04/16/25 Loc: HO.CT Attending Dr: Rusty Bear MD Ordering Physician: Rusty Bear MD Date of Service: 04/16/25 Procedure(s): CT ang io abd aorta runoff Accession Number(s): [id number] cc: Trevon Colby MD; Rusty Bear MD Report Number: [id number]: Total DLP = 787.00 mGy-cm CLINICAL HISTORY: [...] in OV> 04/17/2549 DD/ 8 TD/TT: 04/17/25848 Operations Technician: Complete Blood Count Auto Di ff Reviewed date:05/07/2025 04:33:18 AM Interpretation: Performing Lab:[facility], [address] [place] [phone] Notes/Report: White Blood Count 4.7 4.8-10.8 X10*3/uL [...] NRBC Abs Auto 0.000 0.0-0.012 X10*3/uL Comprehensive [place]. Panel Fa st Reviewed date:05/07/2025 04:33:18 AM Interpretation: Performing Lab:[facility], [address] [place] [phone] Notes/Report: Sodium 140 135-145 mmol/L Potassium 5.1 [...] Panel Reviewed date:05/07/2025 04:33:18 AM Interpretation: Performing Lab:[facility], [address] [place] [phone] Notes/Report: Triglycerides 46 <150 mg/dL Desirable Triglyceride: [...] ff Reviewed date:05/07/2025 04:33:18 AM Interpretation: Performing Lab:[facility], [address] [place] [phone] Notes/Report: White Blood Count 5.2 4.8-10.8 X10*3/uL [...] Nitrogen Reviewed date:05/07/2025 04:33:18 AM Interpretation: Performing Lab:[address] [address] Notes/Report: Blood Urea Nitrogen 46 9-16 mg/dL Creatinine Reviewed date:05/07/2025 04:33:18 AM Interpretation: Performing Lab:[address] [address] Notes/Report: Creatinine 1.66 0.5-1.4 mg/dL Creatinine Clr [...] ff Reviewed date:08/02/2025 01:22:03 PM Interpretation: Performing Lab:[address] [address] Notes/Report: White Blood Count 4.8 4.8-10.8 X10*3/uL [...] NRBC Abs Auto 0.000 0.0-0.012 X10*3/uL Comprehensive [place]. Panel Fa st Reviewed date:08/02/2025 01:22:03 PM Interpretation: Performing Lab:[facility], [address] [place] [phone] Notes/Report: Sodium 140 135-145 mmol/L Potassium 4.6 [...] Panel Reviewed date:08/02/2025 01:22:03 PM Interpretation: Performing Lab:[facility], [address] [place] [phone] Notes/Report: Triglycerides 48 <150 mg/dL Desirable Triglyceride: [...] low results in patients with liver disease. US arterial duplex BI w/ NA (Not yet reviewed by provider) Interpretation: Performing Lab: Notes/Report: [address] [address] Ultrasound Report Signed Patient: Spencer Price MR#: [id number] : 1945 Acct:[id number] Age/Sex: 80 / M ADM Date: 08/11/25 Loc: . Attending Dr: Rusty Bear MD Ordering Physician: Rusty Bear MD Date of Service: 08/11/25 Procedure(s): US arterial duplex BI w/ NA Accession Number(s): [id number] cc: Trevon Colby MD; Rusty Bear MD Reason for Exam: I73.9 - Peripheral vascular disease, unspecified EXAMINATION: Noninvasive assessment of the bilateral lower extremities with ARTERIAL DUPLEX, ANKLE BRACHIAL INDICES (ABIs), and PULSE VOLUME RECORDINGS (PVRs). CLINICAL INFORMATION: Peripheral vascular disease. I 73.9. Status post stenting right superficial femoral artery mid and distal segments. TECHNIQUE: Duplex Doppler techniques with waveform analysis and measurement of velocities in the bilateral common femoral, profunda femoris, superficial femoral, popliteal and tibial arteries were performed. Additionally, ankle pulse volume recordings, ankle pressure measurements and ankle brachial indices were obtained of the lower extremity arterial system bilaterally. The study was performed only at rest. COMPARISON: November 06, 2024. FINDINGS: DIRECT DUPLEX DOPPLER FINDINGS: RIGHT LEG: Common femoral artery: 132 cm/s, phasicity: Biphasic. Profunda femoris artery: 34 cm/s, phasicity: Monophasic. Reversal. Spectral broadening. Superficial femoral artery (proximal): 97 cm/s, phasicity: Biphasic. Spectral broadening. Superficial femoral artery (mid): Stent. Superficial femoral artery (distal): Stent Popliteal artery: 103 cm/s, phasicity: Monophasic. Spectral broadening. Posterior tibial artery: 26 cm/s, phasicity: Monophasic. Spectral broadening. Peroneal artery: 17 cm/s, phasicity: Monophasic. Spectral broadening. Anterior tibial artery: 27 cm/s, phasicity: Monophasic. Spectral broadening. Dorsalis pedis artery: 23 cm/s, phasicity:Monophasic. Spectral broadening. Stent Superficial femoral artery midsegment: Yuhaaviatam artery proximal to the stent: 113 cm/s and biphasic waveforms. Proximal stent: 119 cm/s and monophasic waveform. Mid stent: 116 cm/s and monophasic waveform. Distal stent: 128 ms and monophasic waveform. Yuhaaviatam artery distal to stent: 102 cm/s. Stent, distal superficial femoral artery: Yuhaaviatam artery proximal to the stent: 93 cm/s and monophasic waveform. Proximal stent: 102 cm/s and monophasic waveform. Mid stent: 110 cm/s and monophasic waveform. Distal stent: 89 cm/s and monophasic waveform. Yuhaaviatam artery distal to the stent: 97 cm/s and monophasic waveform. LEFT LEG: Common femoral artery: 119 cm/s, phasicity: Triphasic. Profunda femoris artery: 151 cm/s, phasicity: Triphasic. Superficial femoral artery (proximal): 27 cm/s, phasicity: Monophasic. Spectral broadening. Superficial femoral artery (mid): 42 cm/s, phasicity: Monophasic. Spectral broadening. Superficial femoral artery (distal): 52 cm/s, phasicity: Monophasic. Spectral broadening. Popliteal artery: 52 cm/s, phasicity: Monophasic. Spectral broadening. Posterior tibial artery: 17 cm/s, phasicity: Monophasic. Spectral broadening. Peroneal artery: 11 cm/s, phasicity: Monophasic.. Spectral broadening. Anterior tibial artery: 12 cm/s, phasicity: Monophasic. Spectral broadening. Dorsalis pedis artery: 11 cm/s, phasicity: Monophasic. Spectral broadening. BRACHIAL PRESSURES: Right: 126 Left: 127 ANKLE PRESSURES: Right: PT 90, DP 83 Left: PT 114, DP 58 ANKLE-BRACHIAL INDEX: Right: 0.71 Left: 0.90 ANKLE PVR WAVEFORMS: Right: Abnormal Left: Abnormal US/US arterial duplex BI w/ NA IMPRESSION: Right leg: Patent stent both mid segment and distal segments of the superficial femoral artery. Severe inflow disease throughout the interrogated arteries. Left leg: Severe inflow disease throughout the interrogated arteries with the exception of the common femoral artery and the profunda femoris artery. NA Reference: - >1.4 = calcified vessels - 0.9 - 1.4 = normal - no significant arterial disease - 0.7 - 0.89 = mild peripheral arterial disease - 0.51 - 0.69 = moderate peripheral arterial disease - 0.50 = severe peripheral arterial disease - < .30 = critical arterial disease Electronically signed by: Akshat Jiang MD 08/12/2025 09:22 AM EDT Dictated By: Akshat Hooper MD Signed By: <Electronically signed by Akshat Jordan MD in OV> 08/12/2522 DD/ 0945 TD/TT: 08/11/25 1015 Operations Technician: [place] [address] Ultrasound Report Signed Patient: Spencer Price MR#: [id number] : 1945 Acct:[id number] Age/Sex: 80 / M ADM Date: 08/11/25 Loc: HO.US Attending Dr: Rusty Bear MD Ordering Physician: Rusty Bear MD Date of Service: 08/11/25 Procedure(s): US arterial duplex BI w/ NA Accession Number(s): [id number] cc: Trevon Colby MD; Rusty Bear MD Reason for Exam: I73 .9 - Peripheral vascular disease, unspecified EXAMINATION: Noninvasive assessme nt of the bilateral lower extremities with ARTERIAL DUPLEX, ANKLE BRACHI AL INDICES (ABIs), and PULSE VOLUME RECORDINGS (PVRs). CLINICAL INFORMATION: Peripheral vascular disease. I 73.9. Status post stenting right superficial femoral artery mid and distal segments. TECHNIQUE: Duplex Doppler techniques with waveform analysis and measurement of velocities in the bilateral common femoral, profunda femoris, superficial femoral, popliteal and tibial arteries were performed. Additionally, ankle pulse volume recordings, ankle pressure measurements and ank le brachial indices were obtained of the lower extremity arterial system bilaterally. The study was performed only at rest. COMPARISON: November 06, 2024. FINDINGS: DIRECT DUPLEX DOPPLE R FINDINGS: RIGHT LEG: Common femoral arter y: 132 cm/s, phasicity: Biphasic. Profunda femoris artery: 34 cm/s, phasicity: Monophasic. Reversal. Spectral broadening. Superficial femoral artery (proximal): 97 cm/s, phasicity: Biphasic. Spectral broadening. Superficial femoral artery (mid): Stent. Superficial femoral artery (distal): Stent Popliteal artery: 10 3 cm/s, phasicity: Monophasic. Spectral broadening. Posterior tibial artery: 26 cm/s, phasicity: Monophasic. Spectral broadening. Peroneal artery: 17 cm/s, phasicity: Monophasic. Spectral broadening. Anterior tibial tamara ry: 27 cm/s, phasicity: Monophasic. Spectral broadening. Dorsalis pedis arter y: 23 cm/s, phasicity:Monophasic. Spectral broadening. Stent Superficial femoral artery midsegment: Yuhaaviatam artery proxim al to the stent: 113 cm/s and biphasic waveforms. Proximal stent: 119 cm/s and monophasic waveform. Mid stent: 116 cm/s and monophasic waveform. Distal stent: 128 ms and monophasic waveform. Yuhaaviatam artery distal to stent: 102 cm/s. Stent, distal superficial femoral artery: Yuhaaviatam artery proxim al to the stent: 93 cm/s and monophasic waveform. Proximal stent: 102 cm/s and monophasic waveform. Mid stent: 110 cm/s and monophasic waveform. Distal stent: 89 cm/ s and monophasic waveform. Yuhaaviatam artery distal to the stent: 97 cm/s and monophasic waveform. LEFT LEG: Common femoral arter y: 119 cm/s, phasicity: Triphasic. Profunda femoris artery: 151 cm/s, phasicity: Triphasic. Superficial femoral artery (proximal): 27 cm/s, phasicity: Monophasic. Spectral broadening. Superficial femoral artery (mid): 42 cm/s, phasicity: Monophasic. Spectral broadening. Superficial femoral artery (distal): 52 cm/s, phasicity: Monophasic. Spectral broadening. Popliteal artery: 52 cm/s, phasicity: Monophasic. Spectral broadening. Posterior tibial artery: 17 cm/s, phasicity: Monophasic. Spectral broadening. Peroneal artery: 11 cm/s, phasicity: Monophasic.. Spectral broadening. Anterior tibial tamara ry: 12 cm/s, phasicity: Monophasic. Spectral broadening. Dorsalis pedis arter y: 11 cm/s, phasicity: Monophasic. Spectral broadening. BRACHIAL PRESSURES: Right: 126 Left: 127 ANKLE PRESSURES: Right: PT 90, DP 83 Left: PT 114, DP 58 ANKLE-BRACHIAL INDEX: Right: 0.71 Left: 0.90 ANKLE PVR WAVEFORMS: Right: Abnormal Left: Abnormal US/US arterial duplex BI w/ NA IMPRESSION: Right leg: Patent st ent both mid segment and distal segments of the superficial femoral artery. Severe inflow diseas e throughout the interrogated arteries. Left leg: Severe inf low disease throughout the interrogated arteries with the exception o f the common femoral artery and the profunda femoris artery. NA Reference: - >1.4 = calcified vessels - 0.9 - 1.4 = normal - no significant arterial disease - 0.7 - 0.89 = mild peripheral arterial disease - 0.51 - 0.69 = moderate peripheral arterial disease - 0.50 = severe peripheral arterial disease - < .30 = critical arterial disease Electronically kendal d by: Akshat Jiang MD 08/12/2025 09:22 AM EDT Dictated By: Akshat Rivas MD Signed By: <Electronically signed by Akshat Jordan MD in OV> 08/12/25 0922 DD/ 0945 TD/TT: 08/11/25 1015 Operations Technician: Reason For Referral No Information Medications Medication [...] COVID-19 Moderna SPIKEVAX Unknown 08/23/2023 Administer ed Fluzone High-Dose (HD-IIV3) Unknown 08/08/2025 Administered Social History Tobacco Use: Social History Observation [...] Problem Status W/U Status Risk Notes Problem 3490263 Former smoker (Z87.891) Active confirmed He is highly motivated not to smoke and we discussed means of preserving abstinence in times of stress. Problem 53158211 Hyperlipidemia (E78.5) Active confirmed His total cholesterol level is low. His lipids are in near target range. No change in his medications was made. His lipids were reviewed. He will have fasting lipid profile in the near future. Problem 210814192 Overweight (E66.3) Active confirmed His body mass [...] weight maintenance diet low in cholesterol. Problem 324538272 Tubular adenoma (D36.9) Active confirmed He will continue to undergo colonoscopies every 5 years. Problem 44085114 Carpal tunnel syndrome, right upper limb (G56.01) Active confirmed He has seen the orthopedic surgeon and will undergo surgery for carpal tunnel syndrome on the right later this month. He is cleared for surgery at this time. Problem 05041047 Coronary artery disease (I25.10) Active confirmed His angina is stable. He reports none recently. He was compliant with all of his medications since his last visit. No change in his regimen was needed. Problem 361781628 BPH (benign prostatic hyperplasia) (N40.0) Active confirmed He arises from sleep once or twice a night to urinate. We have discussed lifestyle modifications he could make to reduce nocturia. Problem 865639604 Peripheral vascular disease (I73.9) Active confirmed He [...] and was thought to be stable. 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 He has an upcoming appointment with a neurosurgeon at the end of this month. Problem 253761392 Erectile dysfunction (N52.9) Active confirmed This is well compensated with medications. Problem 716043306 Osteoarthritis of right hip (M16.11) Active confirmed . He describes a hip pain as mild today. Problem 65386350 Spinal stenosis, lumbar (M48.06) Active confirmed The lumbar fusiontook place without side effects or incidents. He notices a substantial improvement in his back pain. The wound is well-healed. He reports much less pain with ambulation. 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 The discomfort has resolved. Problem Pulmonary emphysema (61963723) Emphysema lung (J43.9) Active confirmed He is no longer smoking. He is short of breath with sustained exertion but is comfortable breathing room air at rest. Problem 971458237 History of bladder cancer (Z85.51) Active confirmed There was no sign of cancer on his exam today. He recently had a cystoscopy, March 2024 which showed no gross recurrence. Surveillance will continue Problem 035281092 Stage 2 chronic kidney disease (N18.2) Active confirmed His renal function is stable and will be followed carefully. Problem 2810889308930 Recurrent epistaxis (R04.0) Active confirmed He will continue the use of aspirin. He was instructed on techniques to stop bleeding. He was instructed to go to the emergency room if bleeding does not stop. If this continues he will see ENT for definitive treatment. 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) [...] Provider Diagnosis Trevon Colby III, MD [address] [place] [address] [place] [address] 10/13/2024 Trevon Colby Hyperlipidemia E78.5 ; Spinal stenosis, lumbar M48.06 ; Overweight E66.3 ; BPH (benign prostatic hyperplasia) N40.0 ; Former smoker Z87.891 ; History of bladder cancer Z85.51 ; Peripheral vascular disease I73.9 ; Osteoarthritis of right hip M16.11 ; Coronary artery disease I25.10 ; Stage 2 chronic kidney disease N18.2 and Emphysema lung J43.9 Trevon Colby III, MD [address] [place] [address] [place] [address] 02/11/2025 Trevon Colby Injury of left peron eal nerve, sequela S84.12XS ; Hyperlipidemia E78.5 ; Stage 2 chronic kidney disease N18.2 ; Osteoarthritis of right hip M16.11 ; Overweight E66.3 ; Spinal stenosis, lumbar M48.06 ; BPH (benign prostatic hyperplasia) N40.0 ; Former smoker Z87.891 and Peripheral vascular disease I73.9 Trevon Colby III, MD [address] [place] [address] [place] [address] 04/13/2025 Trevon Colby Hyperlipidemia E78.5 ; Recurrent epistaxis R04.0 ; Osteoarthritis of right hip M16.11 ; Spinal stenosis, lumbar M48.06 ; Former smoker Z87.891 and Peripheral vascular disease I73.9 Trevon Colby III, MD [address] [place] [address] [place] [address] 05/05/2025 Trevon Colby Hyperlipidemia E78.5 ; Peripheral [...] Emphysema lung J43.9 Trevon Colby III, MD [address] [place] [address] [place] [address] 08/06/2025 Trevon Colby Hyperlipidemia E78.5 ; Coronary artery disease I25.10 ; Stage 2 chronic kidney disease N18.2 ; Osteoarthritis of right hip M16.11 ; Overweight E66.3 ; Spinal stenosis, lumbar M48.06 ; BPH (benign prostatic hyperplasia) N40.0 ; History of bladder cancer Z85.51 ; Emphysema lung J43.9 and Peripheral vascular disease I73.9 Trevon Colby III, MD [address] [place] [address] [place] [address] 11/28/2024 Trevon Colby Hyperlipidemia E78.5 Trevon Colby III, MD [address] [place] [address] [place] [address] 12/12/2024 Trevon Colby Hyperlipidemia E78.5 Trevon Colby III, MD [address] [place] [address] [place] [address] 01/19/2025 Trevon Colby III, MD [address] [place] [address] [place] [address] 01/20/2025 Trevon Colby III, MD [address] [place] [address] [place] [address] 05/07/2025 Trevon Colby Assessments Encounter Date Diagnosis [...] all of his medications. He saw his channel business manager this month who found him to [...] all of his medications. He saw his channel business manager this month who found him to [...] Date PROFILE, FASTING (COMPREHENSIVE METABOLI C) 05/05/2025 PROFILE, FASTING (COMPREHENSIVE METABOLI C) 01/12/2020 PROFILE, FASTING (COMPREHENSIVE METABOLI C) 08/25/2020 PROFILE, FASTING (COMPREHENSIVE METABOLI C) 07/25/2021 PROFILE, FASTING (COMPREHENSIVE METABOLI C) 02/28/2024 PROFILE, FASTING (COMPREHENSIVE METABOLI C) 03/04/2018 PROFILE, FASTING (COMPREHENSIVE METABOLI C) 04/22/2019 PROFILE, FASTING (COMPREHENSIVE METABOLI C) 02/11/2025 PROFILE, FASTING (COMPREHENSIVE METABOLI C) 04/22/2021 PROFILE, FASTING (COMPREHENSIVE METABOLI C) 08/06/2025 PROFILE, [...] w DIFF 08/06/2025 CBC w DIFF 04/22/2019 CBC w DIFF 05/20/2020 Echocardiogram 01/31/2023 PFT with DLCO 02/01/2023 CBC WITH AUTO DIFF 10/13/2024 CBC WITH AUTO DIFF 05/01/2024 CBC WITH AUTO DIFF 11/29/2023 Lipid Panel 11/29/2023 Lipid Panel 10/13/2024 Lipid Panel 05/05/2025 Lipid Panel 05/01/2024 Lipid Panel 02/28/2024 Lipid Panel 02/11/2025 Lipid Panel 08/06/2025 ECG 12 lead EKG 08/23/2023 US arterial duplex BI w/ NA 08/11/2025 Next Appt Details Provider Name:Trevon Colby , 10/29/2025 09:45:00 AM, [address] [facility] [address] [place], [place], [address], Provider Name:Trevon Colby , 05/06/2026 09:30:00 AM, [address] [place] [address] [address], [place], [address], Insurance Providers Payer Name Payer Address Payer Phone Subscriber Number Group Number Insured Name Patient Relationship to Insured Coverage Start Date Coverage End Date [facility] [address] [facility] [address] [facility] [place] [phone] [id number] Spencer Price Self - patient is the insured MEDICARE NGS [address] [place] [address] [id number] Spencer Price Self - patient is the [...] 17 Surgical History Surgery Date(Month/Year) L3-L5 fusion [facility] [place] 09/18/2024 Left femoral endarterectomy, right superficial Femoral artery atherectomy and angioplasty 06/2018 Right popliteal and peroneal artery athe rectomy and angioplasty 12/2017 Angioplasty right peroneal and popliteal artery 04/13/2021 Lumbar L3-5 Laminectomy, par tial facetectomy, foraminotomy, [facility], Dr Baltazar 10/25/[address] Bear [...]
--- OUTSIDE RECORDS SUMMARY | 2025-08-13 08:32 | XMS_ITS | Encounter Summary ---
Author Organization [facility] Address [address] [place] [address] Care Team Providers Care Reliability Technician Name Role Phone Physician, Pcp Unknown Primary Care Provider Lo vailable Encounter Details Date Type Department Care Team (Late st Contact Info) Description 06/15/2025 Lab Requisition [facility] - Main Lab [address] [place] [id number] Kleber Rodriguez MD [address] [place] [address] Malignant neoplasm of overlapping sites [...] AM EDT) Final Diagnosis A. Urine, Voided, [id number]: Negative for high grade urothelial carcinoma. Results of UroVysion fluorescence in situ hybridization (FISH) testing: CEP3: Normal CEP7: Normal CEP17: Normal LSI 9p21: Normal Interpretation: Normal profile Controls stained appropriately. Note: The results are intended as a screening device and should be interpreted in association with other clinical and pathological findings. 06/23/2025 9:06 AM EDT [facility] Specimen A Adequacy Satisfactory for evaluation 06/23/2025 9:06 AM EDT [facility] Clinical Information Malignant neoplasm of overlapping sites of bladder C67.8 Urine Cytology/FISH (now) 06/23/2025 9:06 AM EDT [facility] Gross Description A. Urine, Voided, [id number]: Received one ThinPrep slide for cytology and one ThinPrep slide for UroVysion FISH 06/23/2025 9:06 AM EDT [facility] Disclaimer Unless otherwise specified, all tissue is 10% NB formalin fixed and paraffin embedded. Technical pathology services provided by [facility] at [address], [place] [address] (CLIA #[id number]/Jacque Good MD, Medical Secretary) 06/23/2025 9:06 AM EDT [facility] Urine Urine specimen from urethra / Unknown 06/08/2025 06/15/2025 9:32 AM EDT us Kleber Rodriguez MD LAB CYTOLOGY ORDERABLES Final R esult [facility] [address] [place] [address], documented in this encounter Visit Diagnoses Diagnosis Malignant neoplasm of overlapping sites of bladder (CMS/HCC V24, CMS/HCC V28) documented in this encounter Care Teams Reliability Technician Relationship Specialty Start Date End Date Physician, Pcp Unknown PCP - General 06/15/25 documented as of this encounter
--- OUTSIDE RECORDS SUMMARY | 2025-08-13 08:33 | XMS_ITS | Clinical Summary ---
Author Organization [address] Address [address] [place] [address] Phone Care Team Providers Care Medical And Scientific Illustrator Name Role Phone Physician, Pcp Unknown Primary Care Provider Lo vailable Encounters Date Type Department Care Team Description 06/15/2025 Lab Requisition [facility] - Main Lab [address] [facility] [employer] [place] [address] Kleber Rodriguez MD Malignant neoplasm [...] Malignant neoplasm of overlapping sites of bladder ([facility] V24, [facility] V28) from Last 3 Months Results * Non-gynecologic cytology (06/08/2025 12:00 AM EDT) Final Diagnosis A. Urine, Voided, [id number]: Negative for high grade urothelial carcinoma. Results [...] Satisfactory for evaluation 06/23/2025 9:06 AM EDT [facility] Clinical Information Malignant neoplasm of overlapping sites of bladder C67.8 Urine Cytology/FISH (now) 06/23/2025 9:06 AM [facility] Gross Description A. Urine, Voided, [id number]: Received one ThinPrep slide for cytology and one ThinPrep slide for UroVysion FISH 06/23/2025 9:06 AM T [facility] Disclaimer Unless otherwise specified, all tissue is 10% NB formalin fixed and paraffin embedded. Technical pathology services provided by [facility] at [address], [place] [address] (CLIA #[id number]/Jacque Good MD, Health Communications Specialist) 06/23/2025 9:06 AM EDT [facility] Urine Urine specimen from urethra / Unknown 06/08/2025 06/15/2025 9:32 AM EDT us Kleber Rodriguez MD LAB CYTOLOGY ORDERABLES Final R esult [facility] [address] [place] [address], from Last [address] [facility] Care Teams Medical And Scientific Illustrator Relationship Specialty Start Date End Date Physician, Pcp Unknown PCP - General 06/15/25
== END 2025-08-13 08:21 | disposition home or self-care (01) ==
LOC: CF 08:20
PROVIDERS: Visit Provider Internal Medicine
DX: M48.062 Spinal stenosis, lumbar region with neurogenic claudication (principal); M54.16 Radiculopathy, lumbar region
CPT/HCPCS: 62323; J2003; J3301; Q9967

== ENCOUNTER 2025-08-13 09:43 | Outpatient (AMB) | payer MEDICARE, SELFPAY ==
[2025-08-13 09:50] VITALS: BP 172/79; PULSE 59; RESP 16; O2SAT 100; BMI 28.6
--- NOTE | 2025-08-13 09:50 | A.OFFVIS_ITS ---
Vital Signs 08/13/25 09:50 08/13/25 10:20 Height 5 ft 5 in Weight 172 lb BMI 28.6 BP 172/79 H 149/61 H Blood Pressure Location Lt brachial Lt radial Position Sitting Sitting Respiration 16 16 Pulse 59 62 Pulse Source Pulse Oximeter Pulse Oximeter Pulse Oximetry (%) 100 95 Oxygen Delivery Method Room Air Room Air Intake Visit Reasons: Caudal STEVE with Catheter/ Ativan Allergies oxycodone (From PERCOCET) Allergy (Severe, Verified 06/12/25 11:26) headache/diaphoresis/nausea bee pollen (bee stings) Allergy (Intermediate, Verified 06/12/25 11:26) Hives HPI HPI Caudal STEVE with Catheter/ Ativan: Details: Patient presents for scheduled procedure. Denies any recent cough, cold, infection, fever or other significant changes in medical history since last office visit. [facility] Medical History (Updated 06/12/25 @ 12:39 by TAI Maki) Bladder cancer Ascending aorta dilatation PONV (postoperative nausea and vomiting) Pulmonary emphysema Dyspnea on exertion COPD (chronic obstructive pulmonary disease) CAD (coronary artery disease) HTN (hypertension) Hyperlipidemia PAD (peripheral artery disease) Hypercholesteremia Surgical History (Updated 06/12/25 @ 12:40 by TAI Maki) History of lumbar fusion Hx of bilateral cataract extraction Hx of cystoscopy History of back surgery H/O cardiac catheterization Stented coronary artery Hx of colonoscopy Hx of inguinal hernia repair Hx of appendectomy History of hip surgery History of femoral angiogram Family History Father CVD (cardiovascular disease) Mother Lung cancer Social History Household Members: Spouse Housing: House Are you a primary healthcare management to a significant other at home: No Do you presently have visiting nurse or other home services: No Alcohol intake: current Alcohol intake frequency: a few times a month Alcohol type: beer Patient Tobacco Use Status: Former Tobacco user Tobacco use type: Cigarette Years Smoked: 25 Second Hand Smoke Exposure: No service: Yes Physical Exam Vital Signs: Last Vital Signs Pulse 62 08/13/25 10:20 Resp 16 08/13/25 10:20 BP 149/61 H 08/13/25 10:20 Pulse Ox 95 08/13/25 10:20 Oxygen Delivery Method Room Air 08/13/25 10:20 BMI result Body Mass Index 28.6 Office Procedures AMB Joint Injection/Aspiration Joint Injection/Aspiration Details: Caudal STEVE with catheter After obtaining written consent, pre-procedure blood pressure and pulse were measured. The patient was placed in the prone position. The lumbosacral area was widely prepped with chloraprep and draped in sterile fashion. The skin overlying the target was anesthetized with 0.5% lidocaine. A 17 G needle was used to access the caudal epidural space using anatomic landmarks and x-ray guidance. We then threaded a catheter up to the L5/S1 level and injected contrast 1cc omnipaque 180 for verification of epidural spread. Following negative aspiration of heme or CSF, a mixture of 5 ml 0.5% lidocaine with 80 mg triamcinilone was injected with minimal pressure into the epidural space. The needle was removed, skin cleansed and a sterile bandage was applied. The patient tolerated the procedure well and no complications were encountered. Following the procedure the patient's vital signs were stable. The patient was discharged home in good condition with post-procedural instructions. Time Out: Immediately prior to the procedure, the following was verbally confirm ed that there is a signed consent form and that the correct patient, planned procedure, site and side are consistent with documentation and that necessary equipment and/or blood products are available prior to the start of the case. Complications: none EBL: <5 cc Coding 26956 - Caudal/Lumbar Epidural/Interlaminar with fluoroscopy Procedure code (CPT) selection complete Office Meds lidocaine (PF) 10 mg/mL (1 %) injection solution Performing Provider: Yasmani Sparks MD Performing Location: [facility] Administered by: Yasmani Sparks MD on 08/13/25 10:42 Dose Route Admin Location Dispensed Lot Number Expiration Date [facility] Bods Developer 2 mL Infiltration 5 mL Total Dispensed Waste 5 mL 0 % Assessment & Plan Assessment & Plan (1) Lumbar radiculopathy: Code(s): M54.16 - Radiculopathy, lumbar region Category: Medical Plan Patient is status post caudal STEVE with catheter. Patient tolerated procedure well and was discharged home in stable condition with discharge instructions. All questions were answered. We will follow-up via telephone or in clinic to assess response to therapy. A follow-up appointment was made during today's visit. Orders: Orders FL guidance in treatment room Today Julieth Vance APRN, ELECTRICAL ENGINEERING TEACHER M48.062 - Spinal stenosis, lumbar region with neurogenic claudication AMB Joint Injection/Aspiration Today Yasmani Sparks MD M54.16 - Radiculopathy, lumbar region Medications: New lorazepam (Ativan) Take 30 minutes prior to arrival to procedure 1 mg PO ONCE 1 tab 0RF anxiety Julieth Vance APRN, ELECTRICAL ENGINEERING TEACHER Coding Level of Care Code Procedure Only Diagnoses Lumbar radiculopathy M54.16 CPT Codes Coding - Joint 11: 00337 - Caudal/Lumbar Epidural/Interlaminar with fluoroscopy ([id number])
[2025-08-13 10:20] VITALS: BP 149/61; PULSE 62; RESP 16; O2SAT 95
== END 2025-08-13 10:25 | disposition home or self-care (01) ==
LOC: HO.PMCPRC 09:43
PROVIDERS: PCP Internal Medicine Medical Oncology; Visit Provider Internal Medicine
DX: M54.16 Radiculopathy, lumbar region (principal)
CPT/HCPCS: 62323

== ENCOUNTER 2025-09-10 10:19 | Outpatient (AMB) | payer MEDICARE, SELFPAY ==
--- OUTSIDE RECORDS SUMMARY | 2024-10-13 06:15 | XMS_ITS ---
Author Organization Trevon Colby III, MD Address [address] [place] [address] [place] [address] Care Team Providers Care Urgent Care Physician Name Role Phone Dr. Trevon Colby III Primary Care Provider Allergies Allergen (clinical drug ingredient) Drug/Non Drug Allergy documented on EMR Reaction Allergy Type Onset Date Status Bee Sting hives Allergy Active acetaminophen / oxycodone Percocet nausea Drug Allergy Active REASON FOR VISIT Recent back surgery, Spinal stenosis, Benign prostatic hypertrophy, Peripheral arterial disease, Hyperlipidemia, Coronary artery disease, Chronic kidney disease Medications Medication SIG (Take, Route, Frequency, Duration) Notes Start Date End Date Status Ezetimibe 10 MG 1 tablet Orally Once a day Active Clopidogrel Bisulfate 75 MG 1 tablet Ora lly Once a day 03/30/2021 Active Aspirin Adult Low Dose 81 MG 1 tablet Orally Once a day Active Naproxen 500 MG 1 tablet with food o r milk as needed Orally every 12 hrs Active Lisinopril-hydroCHLOROthiaz racheal 12.5-10 MG 1 tablet Orally Once a day Active Metoprolol Succinate ER SUC 50MG TAKE 1 TABLET ONCE DAILY Orally Once a day Active Social History Tobacco Use: Social History Observation Description Date Details (start date - stop date) Former Smoker NA - NA Sex Assigned At : Social History Observation Description Sex Assigned At Male Tobacco Use/Smoking Question Answer Notes Patient is a former smoker How long has it been since you last smoked? > 10 years Additional Findings: Tobacco Non-User Ex-cigaret te smoker Vital Signs Temperature 98.1 degrees Fahrenheit 10/13/20 24 Blood pressure systolic 133 mm Hg 10/13/20 24 Blood pressure diastolic 60 mm Hg 024 Heart Rate 80 /min 10/13/2024 Height 66 in 10/13/2024 Weight 170 lbs 10/13/2024 BMI 27.44 kg/m2 10/13/2024 Encounters Encounter Location Date Provider Diagnosis Trevon Colby III, MD [address] [place] [address] [address] [place], [place] [address] 10/13/2024 Trevon Colby Hyperlipidemia E78.5 ; Spinal stenosis, lumbar M48.06 ; Overweight E66.3 ; BPH (benign prostatic hyperplasia) N40.0 ; Former smoker Z87.891 ; History of bladder cancer Z85.51 ; Peripheral vascular disease I73.9 ; Osteoarthritis of right hip M16.11 ; Coronary artery disease I25.10 ; Stage 2 chronic kidney disease N18.2 and Emphysema lung J43.9 Assessments Encounter Date Diagnosis (ICD Code) Assessment Notes Treat ment Notes Treatment Clinical Notes 10/13/2024 Hyperlipidemia (ICD-10 - E78.5) His total cholesterol level is 120. His lipids are in near target range. No change in his medications was made. His lipids were reviewed. He will have fasting lipid profile in the near future. 10/13/2024 Spinal stenosis, lumbar (ICD-10 - M48.06) The lumbar fusiontook place without side effects or incidents. He notices a substantial improvement in his back pain. The wound is well-healed. He reports much less pain with ambulation. 10/13/2024 Overweight (ICD-10 - E66.3) He weighs 170 pounds. His body mass index is 27. He has gained 3 pounds since his last visit. We reviewed his weight loss strategy and discussed this. 10/13/2024 BPH (benign prostati c hyperplasia) (ICD-10 - N40.0) He arises from sleep once or twice a night to urinate. We have discussed lifestyle modifications he could make to reduce nocturia. 10/13/2024 Former smoker (ICD-1 0 - Z87.891) He is highly motivated not to smoke and we discussed means of preserving abstinence in times of stress. 10/13/2024 History of bladder cancer (ICD-10 - Z85.51) There was no sign of cancer on his exam today. He recently had a cystoscopy, March 2024 which showed no gross recurrence. Surveillance will continue 10/13/2024 Peripheral vascular disease (ICD-10 - I73.9) He has significant bilateral arterial disease. In the right lower extremity the stent is patent but he still has claudication. On the left I do not feel a pulse in the groin and his left superficial femoral artery is occluded. There is no skin breakdown on either leg. He has claudication at about 150 yards. He saw vascular surgery In March 2024 and was thought to be stable. 10/13/2024 Osteoarthritis of right hip (ICD-10 - M16.11) He continues to have the same pain in his right hip with walking. He is able to ambulate but it is difficult. He does not wish to consider a surgical approach. 10/13/2024 Coronary artery disease (ICD-10 - I25.10) He has had no recent palpitations, angina, syncope or nausea. He has been compliant with all of his medications. He saw his lung splitter this month who found him to be stable and gave him an appointment to return in one year. 10/13/2024 Stage 2 chronic kidney disease (ICD-10 - N18.2) His renal function has deteriorated. His BUN is now 32 with a creatinine 1.48. His GFR is 46. His fasting lipid profile is at target. He has a significant history of arterial disease. This continues to deteriorate he will see nephrology. 10/13/2024 Emphysema lung (ICD-10 - J43.9) He is no longer smoking. He is short of breath with sustained exertion but is comfortable breathing room air at rest. Plan Of Treatment Medication Medication Name Sig Start Date Stop Date Notes Ezetimibe 10 MG 1 tablet Orally Once a day Clopidogrel Bisulfate 75 MG 1 tablet Orally Once a day Aspirin Adult Low Dose 81 MG 1 tablet Orally Once a day Naproxen 500 MG 1 tablet with food o r milk as needed Orally every 12 hrs Lisinopril-hydroCHLOROthiazi de 12.5-10 MG 1 tablet Orally Once a day Metoprolol Succinate ER SUC 50MG TAKE 1 TABLET ONCE DAILY Orally Once a day Pending Test Test Name Order Date PROFILE, FASTING (COMPREHENSIVE METABOLI C) 10/13/2024 PSA, TOTAL 10/13/2024 CBC WITH AUTO DIFF 10/13/2024 Lipid Panel 10/13/2024 Next Appt Details Follow Up: 4 Months, Reason: OV Provider Name:Trevon Colby , 10/29/2025 09:45:00 AM, [address] [facility] [address], [place], [address], Provider Name:Trevon Szymanskine , 05/06/2026 09:30:00 AM, [address] [place] [address] [address], [place], [address], Progress Notes * Spencer PR[birth year]EDOB:[birth year] (79 yo M)Acc No.[id number]:10/13/2024 Progress Notes Patient: Spencer PATEL Provider: Eduar Colby MD :1945 A ge:79 Y S ex:Male Date:10/13/2024 Address:[address] [place], [place] [id number] Subjective: * Chief Complaints: * R ecent back surgerySpinal stenosisBenign prostatic hypertrophyPeripheral arterial diseaseHyperlipidemiaCoronary artery diseaseChronic kidney disease * HPI: C OVID-19 Screening: Questions H ave you experienced fever, chills, cough, sore throat, shortness of breath, difficulty breathing, muscle aches, loss of taste or smell? N o H ave you been exposed to the virus within the last 10 days? N o H ave you travelled internationally in the last 10 days? N o H ave you been exposed to COVID-19 in the past? Y es * : The patient, an 79-year-old male, underwent back surgery on September 17, performed by Doctor Baltazar. Post-surgery, the patient experienced discomfort, which he attributes to not taking his medications correctly. He also reported pain in his right hip, which had been replaced previously. The patient believes this pain might be due to the position he was placed in during surgery. Additionally, the patient has been feeling out of breath more frequently, which he attributes to being out of shape due to lack of exercise. His blood pressure was measured at 133/60. He was admitted to [facility] September 16, 2024 and underwent a lumbar fusion from L3-L5. One year ago he had a laminectomy at this level. The surgery was done to relieve pain. He reports some pain relief so far. * ROS: G eneral/Constitutional: Admits p ain, S urgical incision lumbar spine, some claudication and lower extremities. C hills d enies. F atigue a dmits. F ever d enies. E NT: Decreased hearing d enies. R espiratory: Cough d enies. C ardiovascular: Chest pain with exertion d enies. D yspnea on exertion?denies. S hortness of breath d enies. G astrointestinal: Constipation o ccasional. D ecreased appetite d enies. D iarrhea d enies. H eartburn d enies. N ausea d enies. R ectal bleeding d enies. V omiting d enies. H ematology: bruising d enies. p etechiae d enies. S wollen glands n one have been noted. G enitourinary: Frequent urination o nce a night. M usculoskeletal: Muscle aches d enies. P ainful joints d enies. S ciatica d enies. W eakness d enies. S kin: Itching d enies. R regina d enies. S kin lesion(s)?denies. N eurologic: Difficulty speaking d enies. D izziness d enies.?Headache d enies. L ow back pain d enies. P sychiatric: Depressed mood d enies. * Medical History: * Surgical History: h erniorrhaphy appendectomy Hip replacement right Cataract surgery both eyes 2011colonoscopy, tubular adenoma 2003colonoscopy, negative 2007colonoscopy, negative 2012cardiac catheterization with stent insertion, inferior wall ischemia, 99% right coronary artery stenosis 2016left iliofemoral endarterectomy 2016right common femoral artery angioplasty 2016carpal tunnel surgery right hand, Instrum 04/2018carpal tunnel right hand 10/2019Angiogram Dr. Bear 1Lumbar L3-5 Laminectomy, partial facetectomy, foraminotomy, [facility], Dr Baltazar 3Angioplasty right peroneal and popliteal artery 1Right popliteal and peroneal artery atherectomy and angioplasty 12/2017Left femoral endarterectomy, right superficial Femoral artery atherectomy and angioplasty 06/[id number] fusion [facility] [place]18/[place] * Hospitalization/Major Diagno stic Procedure: B ack surgery on september 1709/2024 * Family History: F ather: . M other: , diagnosed with Cancer. 2 brother(s) , 1 sister(s) - healthy. . There is no family history of genitourinary cancer. He is not aware of any family history of mental illness or substance use disorder or addiction. * Social History: T obacco Use: T obacco Use/Smoking P atient is a f ormer smoker H ow long has it been since you last smoked??> 10 years A dditional Findings: Tobacco Non-User E x-cigarette smoker * Medications: T akingMetoprolol Succinate ER SUC 50MG Tablet Extended Release 24 Hour TAKE 1 TABLET ONCE DAILY Orally Once a day Aspirin Adult Low Dose 81 MG Tablet Delayed Release 1 tablet Orally Once a day Naproxen 500 MG Tablet 1 tablet with food or milk as needed Orally every 12 hrs Ezetimibe 10 MG Tablet 1 tablet Orally Once a day Clopidogrel Bisulfate 75 MG Tablet 1 tablet Orally Once a day Lisinopril-hydroCHLOROthiazide 12.5-10 MG Tablet 1 tablet Orally Once a day Taking Metoprolol Succinate ER SUC 50MG Tablet Extended Release 24 Hour TAKE 1 TABLET ONCE DAILY Orally Once a day Taking Aspirin Adult Low Dose 81 MG Tablet Delayed Release 1 tablet Orally Once a day Taking Naproxen 500 MG Tablet 1 tablet with food or milk as needed Orally every 12 hrs Taking Ezetimibe 10 MG Tablet 1 tablet Orally Once a day Taking Clopidogrel Bisulfate 75 MG Tablet 1 tablet Orally Once a day Taking Lisinopril-hydroCHLOROthiazide 12.5-10 MG Tablet 1 tablet Orally Once a day DiscontinuedAtorvastatin Calcium 80 MG Tablet 1 tablet Orally Once a day Lisinopril 20 MG Tablet 1 tablet Orally Once a day Medication List reviewed and reconciled with the patientDiscontinued Atorvastatin Calcium 80 MG Tablet 1 tablet Orally Once a day Discontinued Lisinopril 20 MG Tablet 1 tablet Orally Once a day Medication List reviewed and reconciled with the patient * Allergies: P ercocet: nausea - Side EffectsBee Sting: hives - Allergyno[Allergies Verified] Objective: * Vitals: H t: 66, Wt:170, BMI:27.44, BP:133/60, HR:80, Temp:98.1, Ht-cm: 167.64, Wt-k.11. * P ast Orders: L ab:Type and Screen (Order Date - 09/03/2024) (Collection Date & Time - 09/03/2024 11:08 AM) Value Reference Range Blood Type OP - Antibody Screen NEGATIVE - L ab:Glucose, Whole Blood (Order Date - 09/17/2024) (Collection Date & Time - 09/17/2024 07:58 PM) Value Reference Range Glucose, Whole Blood 178 H 60-115 - mg/dL Lab:Complete Blood Count Aut o Diff * Collection Date 09/18/2024 07/24/2024 04/21/2024 Collection Time 09:09 AM 08:07 AM 07:58 AM Order Date 09/18/2024 07/24/2024 04/21/2024 White Blood Count 11.7 H (Ref Range: 4.8-10.8 X10*3/uL) 5.0 (Ref Range: 4.8-10.8 X10*3/uL) 5.2 (Ref Range: 4.8-10.8 X10*3/uL) Red Blood Count 2.89 L (Ref Range: 4.60-5.80 X10*6/uL) 3.68 L (Ref Range: 4.60-5.80 X10*6/uL) 3.91 L (Ref Range: 4.60-5.80 X10*6/uL) Hemoglobin 9.9 L (Ref Range: 14.0-18.0 g/dl) 12.5 L (Ref Range: 14.0-18.0 g/dl) 13.0 L (Ref Range: 14.0-18.0 g/dl) Hematocrit 29.0 L (Ref Range: 42.0-52.0 %) 37.0 L (Ref Range: 42.0-52.0 %) 39.0 L (Ref Range: 42.0-52.0 %) Mean Corpuscular Volume 100.3 H (Ref Range: 80.0-98.0 fL) 100.5 H (Ref Range: 80.0-98.0 fL) 99.7 H (Ref Range: 80.0-98.0 fL) Mean Corpuscular Hemoglobin 34.3 H (Ref Range: 27.0-33.0 pg) 34.0 H (Ref Range: 27.0-33.0 pg) 33.2 H (Ref Range: 27.0-33.0 pg) Mean Corpuscular HGB Conc 34.1 (Ref Range: 31.0-36.0 g/dl) 33.8 (Ref Range: 31.0-36.0 g/dl) 33.3 (Ref Range: 31.0-36.0 g/dl) Red Cell Distribution Width 12.7 (Ref Range: 11.0-16.0 %) 13.3 (Ref Range: 11.0-16.0 %) 12.8 (Ref Range: 11.0-16.0 %) Platelet Count 196 (Ref Range: 160-400 X10*3/uL) 266 (Ref Range: 160-400 X10*3/uL) 297 (Ref Range: 160-400 X10*3/uL) Mean Platelet Volume 9.4 (Ref Range: 9.4-12.4 fL) 9.7 (Ref Range: 9.4-12.4 fL) 9.8 (Ref Range: 9.4-12.4 fL) Neutrophils Percent Auto 79.4 H (Ref Range: 45-73 %) 48.1 (Ref Range: 45-73 %) 49.7 (Ref Range: 45-73 %) Imm Gran Pct Auto 0.6 H (Ref Range: 0.0-0.4 %) 0.4 (Ref Range: 0.0-0.4 %) 0.2 (Ref Range: 0.0-0.4 %) Lymphocytes Percent Auto 8.3 L (Ref Range: 20-40 %) 28.7 (Ref Range: 20-40 %) 31.2 (Ref Range: 20-40 %) Monocytes Percent Auto 11.4 H (Ref Range: 2-11 %) 12.5 H (Ref Range: 2-11 %) 10.9 (Ref Range: 2-11 %) Eosinophils Percent Auto 0.1 (Ref Range: 0-4 %) 9.1 H (Ref Range: 0-4 %) 6.9 H (Ref Range: 0-4 %) Basophils Percent Auto 0.2 (Ref Range: 0-2 %) 1.2 (Ref Range: 0-2 %) 1.1 (Ref Range: 0-2 %) NRBC Pct Auto 0.0 (Ref Range: 0.0-0.2 /100WBC) 0.0 (Ref Range: 0.0-0.2 /100WBC) 0.0 (Ref Range: 0.0-0.2 /100WBC) Neutrophils Absolute Auto 9.3 H (Ref Range: 2.0-8.3 x10*3/uL) 2.4 (Ref Range: 2.0-8.3 x10*3/uL) 2.6 (Ref Range: 2.0-8.3 x10*3/uL) Imm Gran Abs Auto 0.07 H (Ref Range: 0.00-0.03 X10*3/uL) 0.02 (Ref Range: 0.00-0.03 X10*3/uL) 0.01 (Ref Range: 0.00-0.03 X10*3/uL) Lymphocytes Absolute Auto 1.0 L (Ref Range: 1.2-4.9 X10*3/uL) 1.4 (Ref Range: 1.2-4.9 X10*3/uL) 1.6 (Ref Range: 1.2-4.9 X10*3/uL) Monocytes Absolute Auto 1.3 H (Ref Range: 0.1-1.2 X10*3/uL) 0.6 (Ref Range: 0.1-1.2 X10*3/uL) 0.6 (Ref Range: 0.1-1.2 X10*3/uL) Eosinophils Absolute Auto 0.0 (Ref Range: 0.0-0.4 X10*3/uL) 0.5 H (Ref Range: 0.0-0.4 X10*3/uL) 0.4 (Ref Range: 0.0-0.4 X10*3/uL) Basophils Absolute Auto 0.0 (Ref Range: 0.0-0.2 X10*3/uL) 0.1 (Ref Range: 0.0-0.2 X10*3/uL) 0.1 (Ref Range: 0.0-0.2 X10*3/uL) NRBC Abs Auto 0.000 (Ref Range: 0.0-0.012 X10*3/uL) 0.000 (Ref Range: 0.0-0.012 X10*3/uL) 0.000 (Ref Range: 0.0-0.012 X10*3/uL) * Imaging:FL guidance in OR * Performed Date 09/17/2024 10/25/2023 07:40 AM 10:55 AM Order Date 09/17/2024 10/25/2023 * Lab:Comprehensive [place]. Pane l Fast * Collection Date 07/24/2024 04/21/2024 02/19/2024 Collection Time 08:07 AM 07:58 AM 08:26 AM Order Date 07/24/2024 04/21/2024 02/19/2024 Sodium 137 (Ref Range: 135-145 mmol/L) 137 (Ref Range: 135-145 mmol/L) 138 (Ref Range: 135-145 mmol/L) Bilirubin Total 0.7 (Ref Range: 0.0-1.0 mg/dL) 0.4 (Ref Range: 0.0-1.0 mg/dL) 0.8 (Ref Range: 0.0-1.0 mg/dL) Aspartate Amino Transferase 22 (Ref Range: 5-37 U/L) 21 (Ref Range: 5-37 U/L) 20 (Ref Range: 5-37 U/L) Alanine Aminotransferase 13 (Ref Range: 0-40 U/L) 18 (Ref Range: 0-40 U/L) 17 (Ref Range: 0-40 U/L) Total Protein 6.8 (Ref Range: 6.5-8.0 g/dL) 7.0 (Ref Range: 6.5-8.0 g/dL) 6.9 (Ref Range: 6.5-8.0 g/dL) Albumin Level 3.8 (Ref Range: 3.5-5.0 g/dL) 3.9 (Ref Range: 3.5-5.0 g/dL) 3.9 (Ref Range: 3.5-5.0 g/dL) Alkaline Phosphatase 92 (Ref Range: 39-117 U/L) 96 (Ref Range: 39-117 U/L) 85 (Ref Range: 39-117 U/L) Potassium 4.8 (Ref Range: 3.3-5.1 mmol/L) 4.3 (Ref Range: 3.3-5.1 mmol/L) 4.5 (Ref Range: 3.3-5.1 mmol/L) Chloride 106 (Ref Range: 96-108 mmol/L) 104 (Ref Range: 96-108 mmol/L) 105 (Ref Range: 96-108 mmol/L) Carbon Dioxide 26 (Ref Range: 22-29 mmol/L) 29 (Ref Range: 22-29 mmol/L) 26 (Ref Range: 22-29 mmol/L) Anion Gap 10 L (Ref Range: 12-20) 8 L (Ref Range: 12-20) 12 (Ref Range: 12-20) Blood Urea Nitrogen 32 H (Ref Range: 9-16 mg/dL) 35 H (Ref Range: 9-16 mg/dL) 43 H (Ref Range: 9-16 mg/dL) Creatinine 1.48 H (Ref Range: 0.5-1.4 mg/dL) 1.45 H (Ref Range: 0.5-1.4 mg/dL) 1.56 H (Ref Range: 0.5-1.4 mg/dL) Estimated Glomerular Filt Rate 46 47 43 Glucose Fasting 94 (Ref Range: 60-99 mg/dL) 92 (Ref Range: 60-99 mg/dL) 106 H (Ref Range: 60-99 mg/dL) Calcium 9.8 (Ref Range: 8.4-10.2 mg/dL) 10.0 (Ref Range: 8.4-10.2 mg/dL) 9.6 (Ref Range: 8.4-10.2 mg/dL) * Lab:Lipid Panel * Collection Date 07/24/2024 04/21/2024 02/19/2024 Collection Time 08:07 AM 07:58 AM 08:26 AM Order Date 07/24/2024 04/21/2024 02/19/2024 Triglycerides 60 (Ref Range: <150 mg/dL) 61 (Ref Range: <150 mg/dL) 69 (Ref Range: <150 mg/dL) Cholesterol 120 (Ref Range: <200 mg/dL) 123 (Ref Range: <200 mg/dL) 124 (Ref Range: <200 mg/dL) LDL Cholesterol Calculated 58 (Ref Range: <100 mg/dL) 60 (Ref Range: <100 mg/dL) 59 (Ref Range: <100 mg/dL) HDL Cholesterol 50 (Ref Range: >40 mg/dL) 51 (Ref Range: >40 mg/dL) 52 (Ref Range: >40 mg/dL) * Lab:Prostate Specific Antige n * Collection Date 07/24/2024 04/21/2024 01/17/2023 Collection Time 08:07 AM 07:58 AM 09:50 AM Order Date 07/24/2024 04/21/2024 01/17/2023 Prostate Specific Antigen 2.80 (Ref Range: <0.05-4.0 ng/mL) 3.57 (Ref Range: <0.05-4.0 ng/mL) 3.34 (Ref Range: <0.05-4.0 ng/mL) * Examination: G eneral Examination: GENERAL APPEARANCE: p leasant, well nourished, well developed, in no acute distress, calm and relaxed, overweight, man. HEAD: a traumatic, normocephalic. EYES: e hasmukh, perrla, anicteric, conjugate. EARS: n ormal. NOSE: s eptum intact. ORAL CAVITY: n ormal, unremarkable. NECK/THYROID: n o jugular venous distention, no carotid bruit, thyroid normal. LYMPH NODES: n o enlarged lymph nodes,spleen normal. SKIN: n o suspicious lesions, anicteric. HEART: n o clicks, gallops, murmurs, or rubs, regular rhythm, S1, S2 normal, no s3, or vascular bruits. LUNGS: , no wheezes, rales, rhonchi, diminished breath sounds throughout. BREASTS: no masses palpable bilaterally. ABDOMEN: b owel sounds normal, no ascites, no organomegaly, no mass. RECTAL EXAM: n ot examined. MUSCULOSKELETAL: e xtremities unremarkable, no clubbing, cyanosis or edema, Recent surgical incision of the lumbar spine, pain to range of motion lumbar spine, able to walk. PERIPHERAL PULSES: n ormal. NEUROLOGIC: a lert and oriented, cranial nerves 2-12 grossly intact, deep tendon reflexes 2+ symmetrical, motor strength normal upper and lower extremities, sensory exam intact. PSYCH: a lert, oriented. Assessment: * Assessment: 1. S sandra stenosis, lumbar - M48.06 (Primary) N otes :The lumbar fusiontook place without side effects or incidents. He notices a substantial improvement in his back pain. The wound is well-healed. He reports much less pain with ambulation. 2 . H yperlipidemia - E78.5 N otes :His total cholesterol level is 120. His lipids are in near target range. No change in his medications was made. His lipids were reviewed. He will have fasting lipid profile in the near future. 3 . O verweight - E66.3 N otes :He weighs 170 pounds. His body mass index is 27. He has gained 3 pounds since his last visit. We reviewed his weight loss strategy and discussed this. 4 . B PH (benign prostatic hyperplasia) - N40.0 N otes :He arises from sleep once or twice a night to urinate. We have discussed lifestyle modifications he could make to reduce nocturia. 5 . F ormer smoker - Z87.891 N otes :He is highly motivated not to smoke and we discussed means of preserving abstinence in times of stress. 6 . H istory of bladder cancer - Z85.51 N otes :There was no sign of cancer on his exam today. He recently had a cystoscopy, March 2024 which showed no gross recurrence. Surveillance will continue 7 . P eripheral vascular disease - I73.9 N otes :He has significant bilateral arterial disease. In the right lower extremity the stent is patent but he still has claudication. On the left I do not feel a pulse in the groin and his left superficial femoral artery is occluded. There is no skin breakdown on either leg. He has claudication at about 150 yards. He saw vascular surgery In March 2024 and was thought to be stable. 8 . O steoarthritis of right hip - M16.11 N otes :He continues to have the same pain in his right hip with walking. He is able to ambulate but it is difficult. He does not wish to consider a surgical approach. 9 . C oronary artery disease - I25.10 N otes :He has had no recent palpitations, angina, syncope or nausea. He has been compliant with all of his medications. He saw his lung splitter this month who found him to be stable and gave him an appointment to return in one year. 1 0. S tage 2 chronic kidney disease - N18.2 N otes :His renal function has deteriorated. His BUN is now 32 with a creatinine 1.48. His GFR is 46. His fasting lipid profile is at target. He has a significant history of arterial disease. This continues to deteriorate he will see nephrology. 1 1. E mphysema lung - J43.9 N otes :He is no longer smoking. He is short of breath with sustained exertion but is comfortable breathing room air at rest. Plan: * Treatment: 2. O verweight L AB: PROFILE, FASTING (COMPREHENSIVE METABOLIC) L AB: PSA, TOTAL L AB: CBC WITH AUTO DIFF L AB: Lipid Panel 3. B PH (benign prostatic hyperplasia) L AB: PROFILE, FASTING (COMPREHENSIVE METABOLIC) L AB: PSA, TOTAL L AB: CBC WITH AUTO DIFF L AB: Lipid Panel * Procedure Codes: * Preventive Medicine: Counseling: C are goal follow-up plan: Counseling for abnormal BMI given Y es Above Normal BMI Follow-up D ietary management education, guidance, and counseling, Dietary needs education * Follow Up: 4 Months (Reason: OV) * Images: * Sign off status: Completed true * Provider: Eduar Colby MD Date: 12/14/2023 Generated for Printdeidre ng/Megag/eTransmitting on: 12:29 PM EDT History and Physical Notes * HPI (History of Present Illness) Category Sub-Category Detail Notes COVID-19 Screening Questions Have you had any new onset fever, chills, cough, congestion, sore throat, shortness of breath, muscle aches?: No Have you been exposed to the virus withi n the last 10 days?: No Have you travelled internationally in last 10 days?: No Have you been exposed to COVID-19 in the past?: Yes Examination Category Sub-Category Detail Notes General Examination GENERAL APPEARANCE: pleasant , well nourished, well developed, in no acute distress, calm and relaxed, overweight, man HEAD: atraumatic, normocep halic EYES: eomi, perrla, anicte vinay, conjugate EARS: normal NOSE: septum intact NECK/THYROID: no jugular venous di stention, no carotid bruit, thyroid normal HEART: no clicks, gallops, murmurs, or rubs, regular rhythm, S1, S2 normal, no s3, or vascular bruits LUNGS: , no wheezes, rales, rhonchi, diminished breath sounds throughout ABDOMEN: bowel sounds normal, no ascites, no organomegaly, no mass NEUROLOGIC: alert and oriented, cranial nerves 2-12 grossly intact, deep tendon reflexes 2+ symmetrical, motor strength normal upper and lower extremities, sensory exam intact SKIN: no suspicious lesion s, anicteric PERIPHERAL PULSES: normal BREASTS: no masses palpable b ilaterally MUSCULOSKELETAL: extremities unremark able, no clubbing, cyanosis or edema, Recent surgical incision of the lumbar spine, pain to range of motion lumbar spine, able to walk LYMPH NODES: no enlarged lymph no nacho,spleen normal RECTAL EXAM: not examined PSYCH: alert, oriented ORAL CAVITY: normal, unremarkable
--- OUTSIDE RECORDS SUMMARY | 2024-11-28 05:58 | XMS_ITS ---
Author Organization Trevon Colby III, MD Address [address] [place] [address] [place] [address] Care Team Providers Care Mobility Architect Name Role Phone Dr. Trevon Colby III [...] Date Provider Diagnosis Trevon Colby III, MD [address] [place] [address] [place] [address] 11/28/2024 Trevon Colby Hyperlipidemia E78.5 Assessments Encounter [...] Saravia Lasha , 10/29/2025 09:45:00 AM, 10 [facility] [place], [place], [address], Provider Name:Trevon Szymanskine , 05/06/2026 09:30:00 AM, 10 [facility] [address] [place], [place], [address], Progress Notes * Spencer PR[birth year]EDOB:[birth year] (79 yo M)Acc No.[id number]:11/28/2024 Patient: Spencer PATEL :1945 A ge:79 Y S ex:Male Address:[address] [place] [address], [place], [address] * Refills Refill Naproxen Tablet, 500 MG, [...] * Date: Generated for Allison jimenez/Bhavin/Nakul on: 12:30 PM EDT
--- OUTSIDE RECORDS SUMMARY | 2024-12-12 06:45 | XMS_ITS ---
Author Organization Trevon Colby III, MD Address [address] [place] [address] [place] [address] Care Team Providers Care Embosser Operator Name Role Phone Dr. Trevon Colby III [...] Date Provider Diagnosis Trevon Colby III, MD [address] [place] [address] [place] [address] 12/12/2024 Trevon Colby Hyperlipidemia E78.5 Assessments Encounter [...] Provider Name:Trevon Colby , 10/29/2025 09:45:00 AM, [address] [place] [address] [place], [address], Provider Name:Trevon Colby , 05/06/2026 09:30:00 AM, [address] [place] [address] [place], [address], Progress Notes * Spencer PR[birth year]EDOB:[birth year] (79 yo M)Acc No.[id number]:12/12/2024 Patient: Spencer PATEL :1945 A ge:79 Y S ex:Male Address: [address], [place], [address] * Refills Refill Metoprolol Succinate ER Tablet Extended Release 24 Hour, SUC 50MG, Orally, 90 Tablet, 1 tablet, Once a day, 90 days, Refills=3 * true * Date: Generated for Allison jimenez/Bhavin/Demetriaitting on: 12:29 PM EDT
--- OUTSIDE RECORDS SUMMARY | 2025-01-19 06:21 | XMS_ITS ---
Author Organization Trevon Colby III, MD Address [address] [place] [address] [place] [address] Care Team Providers Care Tailor'S Aide Name Role Phone Dr. Trevon Colby III Primary Care Provider [phone] REASON FOR VISIT Rx Request Social History Sex Assigned At : Social History Observation Description Sex Assigned At Male Encounters Encounter Location Date Provider Diagnosis Trevon Colby III, MD [address] [place] [address] [place] [address] 01/19/2025 Trevon Colby Plan Of Treatment Next Appt Details Provider Name:Trevon Colby , 10/29/2025 09:45:00 AM, [address] [place] [address] [place], [address], Provider Name:Trevon Colby , 05/06/2026 09:30:00 AM, [address] [place] [address] [facility] [place], [address], Progress Notes * Spencer PRICEDOB:[birth year] (79 yo M)Acc No.[id number]:01/19/2025 Patient: Spencer PATEL :1945 A ge:79 Y S ex:Male Address:[address] [place], [address] * true * Date: Generated for Printi ng/Faxing/eTransmitting on: 1 12:28 PM EDT
--- OUTSIDE RECORDS SUMMARY | 2025-01-20 07:36 | XMS_ITS ---
Author Organization Trevon Colby III, MD Address [address] [place] [address] Care Team Providers Care Furnace Reliner Name Role Phone Dr. Trevon Colby III [...] Provider Diagnosis Trevon Colby III, MD [address] [place] [address] [place] [address] 01/20/2025 Trevon Colby Plan Of Treatment Medication Medication Name Sig Start Date Stop Date Notes Ezetimibe 10 MG 1 tablet Orally Once a day for 90 days 01/20/2025 Atorvastatin Calcium 80 MG 1 tablet Oral ly Once a day for 90 days 01/20/2025 Next Appt Details Provider Name:Trevon Colby , 10/29/2025 09:45:00 AM, [address] [place] [address] [place], [address], Provider Name:Trevon Colby , 05/06/2026 09:30:00 AM, [address] [place] [address] [place], [address], Progress Notes * Spencer PR[birth year]EDOB:[birth year] (79 yo M)Acc No.[id number]:01/20/2025 Patient: Spencer PATEL :1945 A ge:79 Y S ex:Male Address:[address] [place] [address], [place], [address] * Refills Start Ezetimibe Tablet, 10 MG, Orally, 90 Tablet, 1 tablet, Once a day, 90 days, Refills=3 Start Atorvastatin Calcium Tablet, 80 MG, Orally, 90 Tablet, 1 tablet, Once a day, 90 days, Refills=3 * true * Date: Generated for Allison jimenez/Bhavin/Nakul on: 12:28 PM EDT
--- OUTSIDE RECORDS SUMMARY | 2025-02-11 06:00 | XMS_ITS ---
Author Organization Trevon Colby III, MD Address [address] [place] [address] [place] [address] Care Team Providers Care Attorney Law Clerk Name Role Phone Dr. 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) [...] Date Provider Diagnosis Trevon Colby III, MD [address] [place] [address] [place] [address] 02/11/2025 Trevon Colby Injury of left peron [...] Provider Name:Trevon Colby , 10/29/2025 09:45:00 AM, [address] [place] [address] DR [address] Carmela, [place], [address], Provider Name:Trevon Colby , 05/06/2026 09:30:00 AM, [address] [place] [address] [address] DANIELSON, [place], [address], Progress Notes * Spencer PR[birth year]EDOB:[birth year] (79 yo M)Acc No.[id number]:02/11/2025 Progress Notes Patient: Spencer PATEL Provider: Eduar Colby MD :1945 A ge:79 Y S ex:Male Date:02/11/2025 Address: [id number] Subjective: * Chief Complaints: * R ecent spine surgeryPeripheral arterial diseaseNumbness in both feetLeft peroneal nerve injurySpinal stenosisBenign prostatic hypertrophyEmphysemaChronic renal diseaseCoronary artery diseaseHistory of bladder cancer * HPI: C OVID-19 Screening: Kelley rangel returns for a scheduled visit to manage his numerous medical issues at the age of 79. On September 18, 2025 at [facility] by Dr. Baltazar he had [...] right superficial Femoral artery atherectomy and angioplasty 06/[id number] fusion [facility] [place] 09/18/2024 * Hospitalization/Major [...] 0 02/11/2025 Generated for Allison jimenez/Bhavin/Nakul on: 12:29 PM EDT History and Physical [...]
--- OUTSIDE RECORDS SUMMARY | 2025-04-13 09:30 | XMS_ITS ---
Author Organization Trevon Colby III, MD Address [address] [place] [address] [place] [address] Care Team Providers Care Office Services Assistant Name Role Phone Dr. Trevon Colby III [...] Problem Status W/U Status Risk Notes Problem [id number] Recurrent epistaxis (R04.0) Active confirmed He will [...] Date Provider Diagnosis Trevon Colby III, MD [address] [place] [address] [place] [address] 04/13/2025 Trevon Colby Hyperlipidemia E78.5 ; Recurrent [...] Provider Name:Trevon Colby , 10/29/2025 09:45:00 AM, [address] [place] [address] [address], [place], [address], Provider Name:Trevon Colby , 05/06/2026 09:30:00 AM, [address] [place] [address] [address], [place], [address], Progress Notes * Spencer PRICEDOB:[birth year] (79 yo M)Acc No.[id number]:04/13/2025 Progress Notes Patient: Spencer PATEL Provider: Eduar Colby MD :1945 A ge:79 Y S ex:Male Date:04/13/2025 Address:[address] [place] [address] [place], [phone] Subjective: * Chief [...] Bear 1Lumbar L3-5 Laminectomy, partial facetectomy, foraminotomy, [facility], Dr Baltazar 3Angioplasty right peroneal and popliteal artery 04/13/2021ight popliteal and peroneal artery atherectomy and angioplasty 12/2017Left femoral endarterectomy, right superficial Femoral artery atherectomy and angioplasty 06/[id number] fusion [facility] [place] 09/18/2024 * Hospitalization/Major [...] 04/13/2025 Generated for Allison jimenez/Bhavin/eTreinasmitting on: 1 12:30 PM EDT History and Physical Notes * [...]
--- OUTSIDE RECORDS SUMMARY | 2025-05-05 05:30 | XMS_ITS ---
Author Organization Trevon Colby III, MD Address [address] [place] [address] [place] [address] Care Team Providers Care Dye Machine Operator Name Role Phone Dr. Trevon Colby III Primary Care Provider [phone] Allergies Allergen (clinical drug ingredient) Drug/Non Drug [...] Provider Diagnosis Trevon Colby III, MD [address] [place] [address] DR [facility]ITH [facility] [place] [address] 05/05/2025 Trevon Colby Hyperlipidemia E78.5 ; Peripheral [...] all of his medications. He saw his attorney general this month who found him to be [...] Provider Name:Trevon Colby , 10/29/2025 09:45:00 AM, [address] [place] [address] JORGE ALBERTO DANIELSON, [place], [address], Provider Name:Trevon Colby , 05/06/2026 09:30:00 AM, [address] [place] [address] [place], [address], Progress Notes * Spencer PRICEDOB:[birth year] (79 yo M)Acc No.[id number]:05/05/2025 Progress Notes Patient: Spencer PATEL Provider: Eduar [...] Bear 1Lumbar L3-5 Laminectomy, partial facetectomy, foraminotomy, [facility], Dr Baltazar 3Angioplasty right peroneal and popliteal artery 1Right popliteal and peroneal artery atherectomy and angioplasty 12/2017Left femoral endarterectomy, right superficial Femoral artery atherectomy and angioplasty 06/[id number] fusion [facility] [place] 09/18/2024 * Hospitalization/Major Diagno stic Procedure: [...] all of his medications. He saw his attorney general this month who found him to be [...] MD Date: 0 05/05/2025 Generated for Allison jimenez/Bhavin/Alexsmitting on: 1 12:29 PM EDT History and Physical Notes [...]
--- OUTSIDE RECORDS SUMMARY | 2025-05-07 06:27 | XMS_ITS ---
Author Organization Trevon Colby III, MD Address [address] [place] [address] [place] [address] Care Team Providers Care Pattern Vault Clerk Name Role Phone Dr. Trevon Colby III Primary Care Provider [phone] REASON FOR VISIT ? Rx Social History Sex Assigned At : Social History Observation Description Sex Assigned At Male Encounters Encounter Location Date Provider Diagnosis Trevon Colby III, MD [address] [place] [address] [place] [address] 05/07/2025 Trevon Colby Plan Of Treatment Next Appt Details Provider Name:Trevon Colby , 10/29/2025 09:45:00 AM, [address] [place] [address] [place], [address], Provider Name:Trevon Colby , 05/06/2026 09:30:00 AM, [address] [place] [address] JORGE ALBERTO DANIEL[place], [address], Progress Notes * Spencer PRICEDOB:[birth year] (79 yo M)Acc No.[id number]:05/07/2025 Patient: Spencer PATEL :1945 A ge:79 Y S ex:Male Address:[address] [place], [address] * true * Date: Generated for Printi ng/Faxing/eTransmitting on: 1 12:29 PM EDT
--- OUTSIDE RECORDS SUMMARY | 2025-08-06 05:45 | XMS_ITS ---
Author Organization Trevon Colby III, MD Address [address] [place] [address] [place] [address] Care Team Providers Care Furniture Upholstery Mechanic Name Role Phone Dr. Trevon Colby III [...] Date Provider Diagnosis Trevon Colby III, MD [address] [place] [address] [place] [address] 08/06/2025 Trevno Colby Hyperlipidemia E78.5 ; Coronary artery disease [...] Provider Name:Trevon Colby , 10/29/2025 09:45:00 AM, [address] [place] [address] , [facility] [address], [place], [address], Provider Name:Trevon Szymanskine , 05/06/2026 09:30:00 AM, [address] [place] [address] [address]EL[address], [place], [address], Progress Notes * Spencer PR[birth year]EDOB:[birth year] (80 yo M)Acc No.[id number]:08/06/2025 Progress Notes Patient: Spencer PATEL Provider: Eduar Colby MD :1945 A ge:80 Y S ex:Male Date:08/06/2025 Address:[address] [place] [address], [phone] Subjective: * Chief Complaints: * P [...] Bear 1Lumbar L3-5 Laminectomy, partial facetectomy, foraminotomy, [facility], Dr Baltazar 3Angioplasty right peroneal and popliteal artery 1Right popliteal and peroneal artery atherectomy and angioplasty 12/2017Left femoral endarterectomy, right superficial Femoral artery atherectomy and angioplasty 06/[id number] fusion [facility] [place] [...] MD Date: 0 08/06/2025 Generated for Printi ng/Faxing/eTransmitting on: 1 12:29 PM EDT History and [...]
--- NOTE | 2025-09-10 10:23 | MHC.OFFVIS ---
Vital Signs 09/10/25 10:35 Height 5 ft 5 in Weight 172 lb BMI 28.6 BP 135/63 Blood Pressure Location Rt brachial Position Sitting Pulse 67 Pulse Source Pulse Oximeter Pulse Oximetry (%) 97 Oxygen Delivery Method Room Air Intake Visit Reasons: S/P Caudal STEVE Intake Note: Pain today 0/10 Leasing Professional Required: No Accompanied by: Self / Same As Patient Allergies oxycodone (From PERCOCET) Allergy (Severe, Verified 09/10/25 10:36) headache/diaphoresis/nausea bee pollen (bee stings) Allergy (Intermediate, Verified 09/10/25 10:36) Hives HPI Comments Details: The patient is an 80-year-old male presenting with pain management concerns following a caudal STEVE with catheter injection. He reports no pain while sitting but experiences significant discomfort when walking, with his legs being primarily affected. He reports no back pain since injection. The patient describes a sensation of his legs going to sleep if he stands for prolonged periods, indicating a return to baseline symptoms after initial improvement post-injection. However, he believes his leg symptoms also related to PVD and plans to follow up with Vascular provider. The patient has a history of bilateral foot numbness, with longstanding compression on the left side leading to absent peroneal nerve conduction and denervation at L5-S1, which is not amenable to surgical intervention per Neurosurgical evaluation in November 2024. He reports balance issues and tingling sensations in his toes, particularly when not bearing weight. Patient is under the care of Dr. Bear for peripheral vascular disease, with upcoming appointments to assess ongoing symptoms in his legs. Denies any recent cough, cold, infection, fever or any significant changes in medical history since last office visit. Past Procedures: 08/13/25: Caudal STEVE with catheter-100% ongoing pain relief in his back, minimal pain relief in legs when walking or standing PRIOR: The patient is a very pleasant 79-year-old male presenting with chronic low back pain and associated leg pain. He has a history of lumbar fusion from L2 to L5 performed by Dr. Baltazar in 2023 due to lumbar scoliosis and chronic low back pain. In 2022, he underwent L3-L4 and L4-L5 laminectomy, partial facetectomy, and foraminotomy for spinal stenosis. Patient reports prior to back surgeries, he underwent multiple back injections and physical therapy with minimal relief at [facility]. Denies any recent trauma, injury or falls. The patient reports significant leg, back, and feet pain, only when walking, which he rates as 9-10/10, described as tingling, stinging, and aching. He has been taking naproxen with minimal relief. His pain is at 0/10 when he is sitting or sleeping. Reports pain significantly affects his daily activities, functioning and mobility. He reports tightness and cramping pain in his calves as soon as he starts walking. Despite pain, he continues to stay physically active and enjoys swimming. An EMG conducted in November 2024 showed absent peroneal nerve conduction and left L5-S1 radiculopathy. He was told by Neurosurgeon that no additional surgical intervention to alleviate his leg symptoms is feasible due to potential longstanding compression. The patient has a history of severe atherosclerotic disease and peripheral artery disease, with claudication symptoms when walking. He has been advised to maintain a healthy diet and exercise, with follow-up scheduled in three months with Vascular provider. The patient also has a history of coronary artery disease and is on Eliquis (per cardiology note) and low dose aspirin, managed by his enterprise resource planning consultant, Dr. Armstrong. He recently underwent ct scan guided angio abdominal aorta runoff which showed moderately severe atherosclerotic disease with mixed inflow and outflow disease. Patient is concerned why he did not undergo intervention for this. I encourage him to follow up with Dr. Bear. Patient notes that he does not do well under anesthesia due to post-op nausea and always has to receive scopolamine patch pre-operatively. Former smoker, currently consumes beer and denies recreational drug use. - Onset: Chronic, ongoing, only on exertion Just when I walk - Quality: Tingling, stinging, aching, stinging, cramping - Severity: 9/10 only when walking - Location: Low back, legs, feet - Exacerbating factors: Walking, standing, movements - Relieving factors: Resting, sleeping, staying off feet - Affect: Pain impacts mobility and daily activities - Analgesia: Currently using naproxen with minimal relief, pain rated 9/10 - Adverse Effects: None reported - Activities of Daily Living: Pain affects walking and daily chores, but patient remains active - Aberrant Drug Related Behaviors: None reported Past Spine Procedures: 10/24/23: L3-4, L4-5 Laminotomy, Partial facetectomy and foraminotomy with use of microscope 11/06/24: L2-5 transkambin lumbar fusion Oswestry Low Back Pain Disability Score=8 [facility] Medical History Bladder cancer Ascending aorta dilatation PONV (postoperative nausea and vomiting) Pulmonary emphysema Dyspnea on exertion COPD (chronic obstructive pulmonary disease) CAD (coronary artery disease) HTN (hypertension) Hyperlipidemia PAD (peripheral artery disease) Hypercholesteremia Surgical History History of lumbar fusion Hx of bilateral cataract extraction Hx of cystoscopy History of back surgery H/O cardiac catheterization Stented coronary artery Hx of colonoscopy Hx of inguinal hernia repair Hx of appendectomy History of hip surgery History of femoral angiogram Family History Father CVD (cardiovascular disease) Mother Lung cancer Social History Household Members: Spouse Housing: House Are you a primary md do resident urgent care to a significant other at home: No Do you presently have visiting nurse or other home services: No Alcohol intake: current Alcohol intake frequency: a few times a month Alcohol type: beer Patient Tobacco Use Status: Former Tobacco user Tobacco use type: Cigarette Years Smoked: 25 Second Hand Smoke Exposure: No service: Yes Review of Systems Const All systems reviewed & are unremarkable except as noted in HPI and below Physical Exam Vital Signs: Last Vital Signs Pulse 67 09/10/25 10:35 BP 135/63 09/10/25 10:35 Pulse Ox 97 09/10/25 10:35 Oxygen Delivery Method Room Air 09/10/25 10:35 BMI result Body Mass Index 28.6 General: Appears afebrile. Alert and oriented. Mood and affect appropriate. Follows and participates in conversation appropriately. Respiratory effort is unlabored. No cough. Able to transition from sit to stand unassisted. Ambulates with antalgic gait, no assistive devices. General: Yes no CVA tenderness Back/Spine/Pelvis Back: no CVA tenderness Cervical Spine: cervical ROM normal and No Cervical spine tenderness Thoracic/Lumbar Spine: thoracic and lumbar spine normal to inspection, Thoracic/lumbar spine scar(s), Lasegue's sign negative, straight leg raise negative bilaterally, No pain with thoraco-lumbar ROM, thoraco-lumbar ROM limited, No thoracic spinal tenderness and No lumbar spinal tenderness Sacroiliac joints: bilaterally nontender Extrem General: Yes capillary refill normal, Yes no pedal edema, Yes calf tenderness (bilateral with walking), No clubbing and No cyanosis Results Reviewed Results Reviewed: MR LUMBAR SPINE WITHOUT AND WITH CONTRAST 11/19/24 CLINICAL INFORMATION: Status post lumbar fusion, 2 months ago. Numbness, left foot. COMPARISON: MRI dated May 27, 2024. TECHNIQUE: MRI of the lumbar spine was obtained using routine sequences with and without contrast. Intravenous contrast: Gadavist 8 mL. No reported immediate complications FINDINGS: Submitted for interpretation on November 24, 2024. Last rib-bearing vertebra labeled T12. Paramagnetic field distortion secondary to metallic hardware, L2 L5 levels. Dextroconvex rotoscoliosis apex at L2-3. No abnormal enhancement within the neural elements of the thecal sac. No abnormal enhancement in the prevertebral compartment. No bone marrow STIR signal abnormality. Multilevel disc desiccation and marginal osteophyte formation, L1-S1. There is a 6 mm anterolisthesis at L5-S1. Grade 1 retrolisthesis, L1-2. Intervertebral discs spacers placement, L2-3, L3-4 and L4-5. Conus medullaris ends at inferior endplate of T12 with normal signal. There is no grouping or clumping of the neural elements of the thecal sac. There is no empty sac sign. T12-L1: No disc herniation. No neuroforamina stenosis. L1-2: Broad-based disc bulging. Hypertrophy of ligamentum flavum and the facet joints. Decreased diameter of the thecal sac and the neural foramina. L2-3: Postsurgical changes. Facet joint hypertrophy. Hypertrophy of the right ligamentum flavum. Decreased AP diameter of the thecal sac and the neural foramina. L3-4: Post surgical changes. Bilateral neuroforamina narrowing, left greater than the right side likely encroaching the neural elements. No gross central spinal canal stenosis. L4-5: Postsurgical changes. Decreased AP diameter of the thecal sac and the neural foramina likely encroaching the neural elements. L5-S1: Grade 1 anterolisthesis resulting in bilateral neuroforamina stenosis encroaching the exiting nerve roots. Reduced AP diameter of the thecal sac. No prevertebral compartment hematoma, mass or fluid collection. Asymmetric volume loss right psoas iliac muscle. Multifocal cystic lesions in the right kidney. Numerous diverticula, sigmoid colon. IMPRESSION: Multilevel lumbar spondylosis resulting in central spinal canal and bilateral neuroforamina stenosis at L4-5 and bilateral neuroforamina stenosis at L1-2, L2-3 and L3-4 levels encroaching the exiting nerve roots. Grade 1 anterolisthesis L5-S1, stable. Grade 1 retrolisthesis L1-2. No arachnoiditis by imaging. No abnormal enhancement.. XRAY LUMBOSACRAL SPINE 11/17/24 CLINICAL INFORMATION: Spondylolisthesis, lumbar region. COMPARISON: X-ray dated October 02, 2024. TECHNIQUE: Lateral views in neutral, flexion and extension position. AP view. FINDINGS: Metallic hardware placed with the transverse pedicle screws from L2 to L5, bilaterally. Status post intervertebral disc spacer placement at L2-3, L3-4 and L4-5 levels. Dextroconvex curvature of the lumbar spine. No gross malalignment during flexion and/or extension position. Metallic prosthesis, right hip no fully included. Vascular complications, thoracic and abdominal aorta and iliac arteries. IMPRESSION: No acute fracture or instability. NE electromyogram (EMG); NE nerve conduction velocity 11/27/24 FINDINGS: Left peroneal nerve showed absent response. Left tibial nerve showed very small/almost absent responses, with prolonged distal latency and slow conduction velocity. Right peroneal nerve showed prolonged distal latency, small amplitude and slow conduction velocity across the fibular neck. Right tibial motor nerve showed prolonged distal latency, small amplitude and slow conduction velocity. Bilateral sural nerves showed absent response. Concentric needle EMG was performed in selected muscles of the bilateral lower extremity. Study revealed signs of electric abnormalities as shown in the table above. Left peroneus longus, AH, biceps femoris short head, gluteus medius muscles showed increased insertional activity, PSWs and fibrillations. IMPRESSION: 1. This is an abnormal study. 2. There is electrodiagnostic evidence for ongoing left L5-S1 radiculopathy based on active denervation seen on needle EMG. 3. There is no electrodiagnostic evidence for sciatic neuropathy or lumbosacral plexopathy. 4. Possible underlying sensorimotor peripheral neuropathy. CLINICAL COMMENT: 1. Active denervation seen on L5-S1 innervated muscles on left lower extremity signifying left L5-S1 radiculopathy. 2. Abnormal nerve conduction results should be interpreted with caution. For example, it is common to see absent sural responses and slow conduction velocities with advanced age. Results are not necessarily considered abnormal without other confirmative data for peripheral neuropathy. Patient denies any past history of diabetes or other known risk factors for peripheral neuropathy. CT angio abd aorta runoff 04/17/25 CLINICAL HISTORY: I73.9 - Peripheral vascular disease, unspecified CT angiography abdomen and pelvis with bilateral lower extremity runoff using IV contrast. 3-D post processing. Comparison: None Findings: Vascular: The aorta demonstrates severe soft and calcified atherosclerotic disease without dissection or aneurysm. Renal arteries exhibit moderate atherosclerotic disease without significant stenosis. The celiac artery and superior mesenteric artery are widely patent. The inferior mesenteric artery is also patent. Right lower extremity: Severe atherosclerotic disease with mild and moderate tandem stenosis involving the common, internal and external iliac arteries. The right common femoral artery is widely patent. The profunda femoral artery demonstrates severe atherosclerotic disease with moderate stenosis proximally. The superficial femoral artery demonstrates severe atherosclerotic disease and moderate and moderately severe stenosis. The right SFA stents appear patent. Severe atherosclerotic disease of the popliteal artery. There is somewhat attenuated but patent three-vessel runoff to the right foot. Left lower extremity Severe atherosclerotic disease of the common, internal and external iliac arteries, with mild and moderate tandem stenosis. The left common femoral artery is patent. The profunda femoral artery is widely patent. Severe atherosclerotic disease of the superficial femoral artery with tandem severe stenosis. The popliteal artery demonstrates moderately severe stenosis. Despite this, there is attenuated three-vessel runoff to the left foot. Nonvascular: Lung bases demonstrate mild chronic changes. The liver, gallbladder, spleen, adrenal glands and pancreas are unremarkable. Kidneys demonstrate no suspicious lesion or obstructive uropathy. Bladder is decompressed. The prostate gland is enlarged. Extensive diverticulosis without evidence of diverticulitis. No acute osseous finding. Impression: Moderately severe atherosclerotic disease with mixed inflow and outflow disease as detailed. Despite this there is attenuated three-vessel runoff to both feet. Several incidental findings. Assessment & Plan Assessment & Plan (1) Lumbar post-laminectomy syndrome: Code(s): M96.1 - Postlaminectomy syndrome, not elsewhere classified Category: Medical (2) Lumbar radiculopathy: Code(s): M54.16 - Radiculopathy, lumbar region Category: Medical (3) Lumbosacral spondylosis: Code(s): M47.817 - Spondylosis without myelopathy or radiculopathy, lumbosacral region Category: Medical (4) Claudication of both lower extremities: Code(s): I73.9 - Peripheral vascular disease, unspecified Category: Medical Plan The plan includes monitoring the patient's pain levels and considering a repeat caudal STEVE with catheter injection in three to six months if necessary. The patient is advised to follow up with Dr. Bear for further evaluation of peripheral vascular disease and ongoing symptoms in the legs. If vascular treatment does not alleviate symptoms, options such as spinal cord stimulation or another injection may be considered. All questions and concerns have been answered and patient agreed with the treatment plan. Follow up as needed. Patient was informed and verbally consented to the use of an ambient scribe for clinic note documentation during this visit. Coding Level of Care Code Est Pt Level 3 (97450) Complex EM visit Add On G2211 Diagnoses Lumbar post-laminectomy syndrome M96.1 Lumbar radiculopathy M54.16 Lumbosacral spondylosis M47.817 Claudication of both lower extremities I73.9
[2025-09-10 10:35] VITALS: BP 135/63; PULSE 67; O2SAT 97; BMI 28.6
--- OUTSIDE RECORDS SUMMARY | 2025-09-10 12:29 | XMS_ITS | Encounter Summary ---
Author Organization [facility] Address [address] [place] [address] Care Team Providers Care Electronics Engineer Name Role Phone Physician, Pcp Unknown Primary Care Provider Lo vailable Encounter Details Date Type Department Care Team (Late st Contact Info) Description 06/15/2025 Lab Requisition [facility] - Main Lab [address] [place] [id number] Kleber Rodriguez MD [address] [place] [address] Malignant neoplasm of overlapping sites [...] AM EDT) Final Diagnosis A. Urine, Voided, [id number]: Negative for high grade urothelial carcinoma. Results of UroVysion fluorescence in situ hybridization (FISH) testing: CEP3: Normal CEP7: Normal CEP17: Normal LSI 9p21: Normal Interpretation: Normal profile Controls stained appropriately. Note: The results are intended as a screening device and should be interpreted in association with other clinical and pathological findings. 06/23/2025 9:06 AM EDT [facility] Specimen A Adequacy Satisfactory for evaluation 06/23/2025 9:06 AM EDT [facility] Clinical Information Malignant neoplasm of overlapping sites of bladder C67.8 Urine Cytology/FISH (now) 06/23/2025 9:06 AM EDT [facility] Gross Description A. Urine, Voided, [id number]: Received one ThinPrep slide for cytology and one ThinPrep slide for UroVysion FISH 06/23/2025 9:06 AM EDT [facility] Disclaimer Unless otherwise specified, all tissue is 10% NB formalin fixed and paraffin embedded. Technical pathology services provided by [facility] [address] [place] [address] (CLIA #[id number]/Jacque Good MD, Business Analysis Specialist) 06/23/2025 9:06 AM EDT [facility] Urine Urine specimen from urethra / Unknown 06/08/2025 06/15/2025 9:32 AM EDT us Kleber Rodriguez MD LAB CYTOLOGY ORDERABLES Final R esult [facility] [address] [place] [address], documented in this encounter Visit Diagnoses Diagnosis Malignant neoplasm of overlapping sites of bladder (CMS/HCC V24, CMS/HCC V28) documented in this encounter Care Teams Electronics Engineer Relationship Specialty Start Date End Date Physician, Pcp Unknown PCP - General 06/15/25 documented as of this encounter
--- OUTSIDE RECORDS SUMMARY | 2025-09-10 12:29 | XMS_ITS | Patient Health Record ---
Author Organization Trevon Colby III, MD Address [address] [place] [address] Care Team Providers Care Burr Sander Name Role Phone Dr. Trevon Colby III [...] 0.2 - 1.3 BLD Negative Negative - Glucose, Whole Blood Reviewed date:09/18/2024 09:17:25 AM Interpretation: Performing Lab:[facility], [address] [place] [address] Notes/Report: Glucose, Whole Blood 178 60-115 mg/dL METER # : [id number] FL guidance in OR Reviewed date:09/23/2024 08:42:28 AM Interpretation: Performing Lab: Notes/Report: [facility] [address] [place] [address] Fluoroscopy Report Signed Patient: Spencer Price MR#: [id number] : 1945 Acct:[id number] Age/Sex: 79 / M ADM Date: 09/17/24 Loc: HO.S3 344-[address]: Vikram RUVALCABA Ordering Physician: George Baltazar MD, PhD Date of Service: 09/17/24 Procedure(s): FL guidance in OR Accession Number(s): [id number] cc: Trevon Colby MD; George Baltazar MD, [...] by: Gillian Onofre MD 09/18/2024 12:40 PM [facility] Dictated By: Gillian Onofre MD Signed By: <Electronically signed by Gillian Onofre MD in OV> 09/18/24 1240 DD/ 0740 TD/TT: 09/17/24 1025 Tender Coordinator: [address] [address] Fluoroscopy Report Signed Patient: Spencer Price MR#: [id number] : 1945 Acct:[id number] Age/Sex: 79 / M ADM Date: 09/17/24 Loc: HO.S3 344-[address]: Vikram RUVALCABA Ordering Physician: George Baltazar MD, PhD Date of Service: 09/17/24 Procedure(s): FL guidance in OR Accession Number(s): [id number] cc: Trevon Colby MD; George Baltazar MD, [...] by: Gillian Onofre MD 09/18/2024 12:40 PM [facility] Dictated By: Gillian Onofre MD Signed By: <Electronically signed by Glilian Onofre MD in OV> 09/18/24 1240 DD/ 0740 TD/TT: 09/17/24 1025 Tender Coordinator: KAIDEN Complete Blood Count Auto Di ff Reviewed date:09/23/2024 08:42:28 AM Interpretation: Performing Lab:[facility], [address] [place] [address] Notes/Report: White Blood Count 11.7 4.8-10.8 X10*3/uL [...] date:01/19/2025 08:16:21 PM Interpretation: Performing Lab: Notes/Report: [address] [address] Ultrasound Report Signed Patient: Spencer Price MR#: [id number] : 1945 Acct:[id number] Age/Sex: 79 / M ADM Date: 11/06/24 Loc: .US Attending Dr: Rusty Bear MD Ordering Physician: Rusty Bear MD Date of Service: 11/06/24 Procedure(s): US arterial duplex BI w/ NA Accession Number(s): [id number] cc: Trevon Colby MD; Rusty Bear MD [...] Stent from the proximal to mid SFA: [place] artery proximal to stent: 97 cm/s Proximal stent: 142 cm/s Mid stent: 119 cm/s Distal stent: 172 cm/s [place] artery distal to stent: 154 cm/s Superficial femoral artery (mid): 154 cm/s. Stent from mid to distal SFA: [place] artery proximal to stent: 145 cm/s Proximal stent: 136 cm/s Mid stent: 121 cm/s Distal stent: 146 cm/s [place] artery distal to stent: 94 cm/s Diastolic [...] by: Yair Guaman MD 11/24/2024 12:37 PM [facility] Dictated By: Yair Guaman MD Signed By: <Electronically signed by Yair Guaman MD in OV> 11/24/24 1237 DD/ 1315 TD/TT: 11/06/24 1400 Tender Coordinator: [address] [address] Ultrasound Report Signed Patient: Spencer Price MR#: [id number] : 1945 Acct:[id number] Age/Sex: 79 / M ADM Date: 11/06/24 Loc: . Attending Dr: Rusty Bear MD Ordering Physician: Rusty Bear MD Date of Service: 11/06/24 Procedure(s): US arterial duplex BI w/ NA Accession Number(s): [id number] cc: Trevon Colby MD; Rusty Bear MD [...] from the proxi mal to mid SFA: [place] artery proxim al to stent: 97 cm/s Proximal stent: 142 cm/s Mid stent: 119 cm/s Distal stent: 172 cm/s [place] artery distal to stent: 154 cm/s Superficial femoral artery (mid): 154 cm/s. Stent from mid to distal SFA: [place] artery proxim al to stent: 145 cm/s Proximal stent: 136 cm/s Mid stent: 121 cm/s Distal stent: 146 cm/s [place] artery distal to stent: 94 cm/s Diastolic [...] by: Yair Guaman MD 11/24/2024 12:37 PM [facility] Dictated By: Yair Guaman MD Signed By: <Electronically signed by Yair Guaman MD in OV> 11/24/24 1237 DD/ 1315 TD/TT: 11/06/24 1400 Tender Coordinator: XR lumbar spine 4V min Reviewed date:01/19/2025 08:16:21 PM Interpretation: Performing Lab: Notes/Report: [facility] [address] [place] [address] Drive [address] [place] [address] XRay Report Signed Patient: Spencer Price MR#: [id number] : 1945 Acct:[id number] Age/Sex: 79 / M ADM Date: 11/17/24 Loc: HO.HOSX Attending Dr: Vikram RUVALCABA Ordering Physician: Vikram Grant Date of Service: 11/17/24 Procedure(s): XR lumbar spine 4V min Accession Number(s): [id number] cc: Trevon Colby MD; Vikram Grant . [...] 11/19/24 1305 DD/ 0855 TD/TT: 11/17/24 0900 Tender Coordinator: [facility] [address] [place] [address] XRay Report Signed Patient: Spencer Price MR#: [id number] : 1945 Acct:[id number] Age/Sex: 79 / M ADM Date: 11/17/24 Loc: HO.HOSX Attending Dr: Vikram RUVALCABA Ordering Physician: Vikram Grant Date of Service: 11/17/24 Procedure(s): XR lum bar spine 4V min Accession Number(s): [id number] cc: Trevon Colby MD; Vikram Grant . [...] by: Akshat Jiang MD 11/19/2024 01:05 PM [facility] Dictated By: Akshat Rivas MD Signed By: <Electronically signed by Akshat Jordan MD in OV> 11/19/24 1305 DD/ 0855 TD/TT: 11/17/24 0900 Tender Coordinator: MR lumbar spine wo/w con Reviewed date:01/19/2025 08:16:21 PM Interpretation: Performing Lab: Notes/Report: [address] [address] Magnetic Resonance Report Signed Patient: Spencer Price MR#: [id number] : 1945 Acct:[id number] Age/Sex: 79 / M ADM Date: 11/19/24 Loc: HO.MRI Attending Dr: Vikram RUVALCABA Ordering Physician: Vikram Grant Date of Service: 11/19/24 Procedure(s): MR lumbar spine wo/w con Accession Number(s): [id number] cc: Trevon Colby MD; Vikram Grant EXAMINATION: [...] 11/24/24 0953 DD/ 1220 TD/TT: 11/19/24 1312 Tender Coordinator: [address] [address] Magnetic Resonance Report Signed Patient: Spencer Price MR#: [id number] : 1945 Acct:[id number] Age/Sex: 79 / M ADM Date: 11/19/24 Loc: HO.MRI Attending Dr: Vikram RUVALCABA Ordering Physician: Vikram Grant Date of Service: 11/19/24 Procedure(s): MR lum bar spine wo/w con Accession Number(s): [id number] cc: Trevon Colby MD; Vikram Grant EXAMINATION: [...] by: Akshat Jiang MD 11/24/2024 09:53 AM [facility] Dictated By: Akshat Rivas MD Signed By: <Electronically signed by Akshat Jordan MD in OV> 11/24/24 0953 DD/ 1220 TD/TT: 11/19/24 1312 Tender Coordinator: Complete Blood Count Auto Di ff Reviewed date:02/04/2025 08:51:44 AM Interpretation: Performing Lab:[facility], [address] [place] [address] Notes/Report: White Blood Count 5.0 4.8-10.8 X10*3/uL [...] NRBC Abs Auto 0.000 0.0-0.012 X10*3/uL Comprehensive [place]. Panel Fa st Reviewed date:02/04/2025 08:51:44 AM Interpretation: Performing Lab:[facility], [address] [place] [address] Notes/Report: Sodium 137 135-145 mmol/L Potassium 4.6 [...] Panel Reviewed date:02/04/2025 08:51:45 AM Interpretation: Performing Lab:[facility], [address] [place] [address] Notes/Report: Triglycerides 56 <150 mg/dL Desirable Triglyceride: [...] Antigen Reviewed date:02/04/2025 08:51:45 AM Interpretation: Performing Lab:[address] [address] Notes/Report: Prostate Specific Antigen 2.83 <0.05-4.0 ng/mL PSA methodology: Chavez Alinity i Chemiluminescent Microparticle Immunoassay (CMIA) Blood Urea Nitrogen Reviewed date:05/07/2025 04:33:18 AM Interpretation: Performing Lab:[address] [address] Notes/Report: Blood Urea Nitrogen 32 9-16 mg/dL Creatinine Reviewed date:05/07/2025 04:33:18 AM Interpretation: Performing Lab:[address] [address] Notes/Report: Creatinine 1.50 0.5-1.4 mg/dL Estimated Glomerular Filt Rate 45 Chronic Kidney Disease: Estimated GFR < 60 mL/min/1.73m2 Severe Kidney Disease: Estimated GFR < 15 mL/min/1.73m2 CT angio abd aorta runoff Reviewed date:05/07/2025 04:33:18 AM Interpretation: Performing Lab: Notes/Report: [address] [place] [address] CT Scan Report Signed Patient: Spencer Price MR#: [id number] : 1945 Acct:[id number] Age/Sex: 79 / M ADM Date: 04/16/25 Loc: HO.CT Attending Dr: Rusty Bear MD Ordering Physician: Rusty Bear MD Date of Service: 04/16/25 Procedure(s): CT angio abd aorta runoff Accession Number(s): [id number] cc: Trevon Colby MD; Rusty Bear MD Report Number: [id number]: Total DLP = 787.00 mGy-cm CLINICAL HISTORY: [...] in OV> 04/17/25848 DD/ 8 TD/TT: 04/17/25848 Tender Coordinator: [address] [address] [address] Scan Report Signed Patient: Spencer Price MR#: [id number] : 1945 Acct:[id number] Age/Sex: 79 / M ADM Date: 04/16/25 Loc: HO.CT Attending Dr: Rusty Bear MD Ordering Physician: Rusty Bear MD Date of Service: 04/16/25 Procedure(s): CT ang io abd aorta runoff Accession Number(s): [id number] cc: Trevon Colby MD; Rusty Bear MD Report Number: [id number]: Total DLP = 787.00 mGy-cm CLINICAL HISTORY: [...] in OV> 04/17/2549 DD/ 8 TD/TT: 04/17/25848 Tender Coordinator: Complete Blood Count Auto Di ff Reviewed date:05/07/2025 04:33:18 AM Interpretation: Performing Lab:[facility], [address] [place] [address] Notes/Report: White Blood Count 4.7 4.8-10.8 X10*3/uL [...] NRBC Abs Auto 0.000 0.0-0.012 X10*3/uL Comprehensive [place]. Panel Fa st Reviewed date:05/07/2025 04:33:18 AM Interpretation: Performing Lab:[facility], [address] [place] [address] Notes/Report: Sodium 140 135-145 mmol/L Potassium 5.1 [...] Panel Reviewed date:05/07/2025 04:33:18 AM Interpretation: Performing Lab:[address] [address] Notes/Report: Triglycerides 46 <150 mg/dL Desirable Triglyceride: [...] ff Reviewed date:05/07/2025 04:33:18 AM Interpretation: Performing Lab:[facility], [address] [place] [address] Notes/Report: White Blood Count 5.2 4.8-10.8 X10*3/uL [...] Nitrogen Reviewed date:05/07/2025 04:33:18 AM Interpretation: Performing Lab:[facility], [address] [place] [address] Notes/Report: Blood Urea Nitrogen 46 9-16 mg/dL Creatinine Reviewed date:05/07/2025 04:33:18 AM Interpretation: Performing Lab:[facility], [address] [place] [address] Notes/Report: Creatinine 1.66 0.5-1.4 mg/dL Creatinine Clr [...] ff Reviewed date:08/02/2025 01:22:03 PM Interpretation: Performing Lab:[facility], [address] [place] [address] Notes/Report: White Blood Count 4.8 4.8-10.8 X10*3/uL [...] NRBC Abs Auto 0.000 0.0-0.012 X10*3/uL Comprehensive [place]. Panel Fa st Reviewed date:08/02/2025 01:22:03 PM Interpretation: Performing Lab:[address] [address] Notes/Report: Sodium 140 135-145 mmol/L Potassium 4.6 [...] Panel Reviewed date:08/02/2025 01:22:03 PM Interpretation: Performing Lab:[address] [address] Notes/Report: Triglycerides 48 <150 mg/dL Desirable Triglyceride: [...] disease. US arterial duplex BI w/ NA Reviewed date:08/24/2025 09:28:21 AM Interpretation: Performing Lab: Notes/Report: [address] [address] Ultrasound Report Signed Patient: Spencer Price MR#: [id number] : 1945 Acct:[id number] Age/Sex: 80 / M ADM Date: 08/11/25 Loc: .US Attending Dr: Rusty Bear MD Ordering Physician: Rusty Bear MD Date of Service: 08/11/25 Procedure(s): US arterial duplex BI w/ NA Accession Number(s): [id number] cc: Trevon Colby MD; Rusty Bear MD [...] Spectral broadening. Stent Superficial femoral artery midsegment: [place] artery proximal to the stent: 113 cm/s and biphasic waveforms. Proximal stent: 119 cm/s and monophasic waveform. Mid stent: 116 cm/s and monophasic waveform. Distal stent: 128 ms and monophasic waveform. [place] artery distal to stent: 102 cm/s. Stent, distal superficial femoral artery: [place] artery proximal to the stent: 93 cm/s and monophasic waveform. Proximal stent: 102 cm/s and monophasic waveform. Mid stent: 110 cm/s and monophasic waveform. Distal stent: 89 cm/s and monophasic waveform. [place] artery distal to the stent: 97 cm/s [...] signed by Akshat Jordan MD in OV> 08/12/25921 DD/ TD/TT: 08/11/25 1015 Tender Coordinator: [place] [address] Ultrasound Report Signed Patient: Spencer Price MR#: [id number] : 1945 Acct:[id number] Age/Sex: 80 / M ADM Date: 08/11/25 Loc: .US Attending Dr: Rusty Bear MD Ordering Physician: Rusty Bear MD Date of Service: 08/11/25 Procedure(s): US arterial duplex BI w/ NA Accession Number(s): [id number] cc: Trevon Colby MD; Rusty Bear MD [...] Spectral broadening. Stent Superficial femoral artery midsegment: [place] artery proxim al to the stent: 113 cm/s and biphasic waveforms. Proximal stent: 119 cm/s and monophasic waveform. Mid stent: 116 cm/s and monophasic waveform. Distal stent: 128 ms and monophasic waveform. [place] artery distal to stent: 102 cm/s. Stent, distal superficial femoral artery: [place] artery proxim al to the stent: 93 cm/s and monophasic waveform. Proximal stent: 102 cm/s and monophasic waveform. Mid stent: 110 cm/s and monophasic waveform. Distal stent: 89 cm/ s and monophasic waveform. [place] artery distal to the stent: 97 cm/s [...] signed by Akshat Jordan MD in OV> 08/12/25921 DD/ 0945 TD/TT: 08/11/25 1015 Tender Coordinator: Reason For Referral No Information Medications Medication [...] Problem Status W/U Status Risk Notes Problem 7601497 Former smoker (Z87.891) Active confirmed He is highly motivated not to smoke and we discussed means of preserving abstinence in times of stress. Problem 99951265 Hyperlipidemia (E78.5) Active confirmed His total cholesterol level is low. His lipids are in near target range. No change in his medications was made. His lipids were reviewed. He will have fasting lipid profile in the near future. Problem 773545931 Overweight (E66.3) Active confirmed His body mass [...] weight maintenance diet low in cholesterol. Problem 090566717 Tubular adenoma (D36.9) Active confirmed He will continue to undergo colonoscopies every 5 years. Problem 27373841 Carpal tunnel syndrome, right upper limb (G56.01) Active confirmed He has seen the orthopedic surgeon and will undergo surgery for carpal tunnel syndrome on the right later this month. He is cleared for surgery at this time. Problem 70583583 Coronary artery disease (I25.10) Active confirmed His angina is stable. He reports none recently. He was compliant with all of his medications since his last visit. No change in his regimen was needed. Problem 253865756 BPH (benign prostatic hyperplasia) (N40.0) Active confirmed He arises from sleep once or twice a night to urinate. We have discussed lifestyle modifications he could make to reduce nocturia. Problem 146376684 Peripheral vascular disease (I73.9) Active confirmed He [...] and was thought to be stable. 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 He has an upcoming appointment with a neurosurgeon at the end of this month. Problem 089032090 Erectile dysfunction (N52.9) Active confirmed This is well compensated with medications. Problem 821248247 Osteoarthritis of right hip (M16.11) Active confirmed . He describes a hip pain as mild today. Problem 12737250 Spinal stenosis, lumbar (M48.06) Active confirmed The lumbar fusiontook place without side effects or incidents. He notices a substantial improvement in his back pain. The wound is well-healed. He reports much less pain with ambulation. 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 The discomfort has resolved. Problem Pulmonary emphysema (86047962) Emphysema lung (J43.9) Active confirmed He is no longer smoking. He is short of breath with sustained exertion but is comfortable breathing room air at rest. Problem 434140789 History of bladder cancer (Z85.51) Active confirmed There was no sign of cancer on his exam today. He recently had a cystoscopy, March 2024 which showed no gross recurrence. Surveillance will continue Problem 712231201 Stage 2 chronic kidney disease (N18.2) Active confirmed His renal function is stable and will be followed carefully. Problem 9877446131221 Recurrent epistaxis (R04.0) Active confirmed He will continue the use of aspirin. He was instructed on techniques to stop bleeding. He was instructed to go to the emergency room if bleeding does not stop. If this continues he will see ENT for definitive treatment. 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) [...] Date Provider Diagnosis Trevon Colby III, MD [address] [place] [address] [place] [address] 10/13/2024 Trevon Colby Hyperlipidemia E78.5 ; Spinal stenosis, lumbar M48.06 ; Overweight E66.3 ; BPH (benign prostatic hyperplasia) N40.0 ; Former smoker Z87.891 ; History of bladder cancer Z85.51 ; Peripheral vascular disease I73.9 ; Osteoarthritis of right hip M16.11 ; Coronary artery disease I25.10 ; Stage 2 chronic kidney disease N18.2 and Emphysema lung J43.9 Trevon Colby III, MD [address] [place] [address] [place] [address] 02/11/2025 Trevon Colby Injury of left peron eal nerve, sequela S84.12XS ; Hyperlipidemia E78.5 ; Stage 2 chronic kidney disease N18.2 ; Osteoarthritis of right hip M16.11 ; Overweight E66.3 ; Spinal stenosis, lumbar M48.06 ; BPH (benign prostatic hyperplasia) N40.0 ; Former smoker Z87.891 and Peripheral vascular disease I73.9 Trevon Colby III, MD [address] [place] [address] [place] [address] 04/13/2025 Trevon Colby Hyperlipidemia E78.5 ; Recurrent epistaxis R04.0 ; Osteoarthritis of right hip M16.11 ; Spinal stenosis, lumbar M48.06 ; Former smoker Z87.891 and Peripheral vascular disease I73.9 Trevon Colby III, MD [address] [place] [address] [place] [address] 05/05/2025 Trevon Colby Hyperlipidemia E78.5 ; Peripheral [...] Emphysema lung J43.9 Trevon Colby III, MD [address] [place] [address] [place] [address] 08/06/2025 Trevon Colby Hyperlipidemia E78.5 ; Coronary artery disease I25.10 ; Stage 2 chronic kidney disease N18.2 ; Osteoarthritis of right hip M16.11 ; Overweight E66.3 ; Spinal stenosis, lumbar M48.06 ; BPH (benign prostatic hyperplasia) N40.0 ; History of bladder cancer Z85.51 ; Emphysema lung J43.9 and Peripheral vascular disease I73.9 Trevon Colby III, MD [address] [place] [address] [place] [address] 11/28/2024 Trevon Colby Hyperlipidemia E78.5 Trevon Colby III, MD [address] [place] [address] [place] [address] 12/12/2024 Trevon Colby Hyperlipidemia E78.5 Trevon Colby III, MD [address] [place] [address] [place] [address] 01/19/2025 Trevon Colby III, MD [address] [place] [address] [place] [address] 01/20/2025 Trevon Colby III, MD [address] [place] [address] [place] [address] 05/07/2025 Trevon Colby Assessments Encounter Date Diagnosis [...] all of his medications. He saw his room service associate this month who found him to be [...] all of his medications. He saw his room service associate this month who found him to be [...] Panel 08/06/2025 ECG 12 lead EKG 08/23/2023 Next Appt Details Provider Name:Trevon Colby , 10/29/2025 09:45:00 AM, [address] [facility] [address], [place], [address], Provider Name:Trevon Colby , 05/06/2026 09:30:00 AM, [address] [facility] [place] [address] [place], [place], [address], Insurance Providers Payer Name Payer Address Payer Phone Subscriber Number Group Number Insured Name Patient Relationship to Insured Coverage Start Date Coverage End Date [facility] [address] [place] [employer] [address] [place] [phone] [id number] Spencer Price Self - patient is the insured MEDICARE NGS [address] [place] [phone] [id number] Spencer Price Self - patient is the [...] 17 Surgical History Surgery Date(Month/Year) L3-L5 fusion [facility] 09/18/2024 Left femoral endarterectomy, right superficial Femoral artery atherectomy and angioplasty 06/2018 Right popliteal and peroneal artery athe rectomy and angioplasty 12/2017 Angioplasty right peroneal and popliteal artery 04/13/2021 Lumbar L3-5 Laminectomy, par tial facetectomy, foraminotomy, [facility], Dr Baltazar 10/25/[address] Bear [...]
--- OUTSIDE RECORDS SUMMARY | 2025-09-10 12:30 | XMS_ITS | Clinical Summary ---
Author Organization [address] Address [address] [place] [address] Phone Care Team Providers Care Airport Operations Crew Member Name Role Phone Physician, Pcp Unknown Primary Care Provider Lo vailable Social History Tobacco Use Types Packs/Day Years [...] on patient's age to complete this topic Insurance [facility] Care Teams Airport Operations Crew Member Relationship Specialty Start Date End Date Physician, Pcp Unknown PCP - General 06/15/25
== END 2025-09-10 10:49 | disposition home or self-care (01) ==
LOC: HO.PMC 10:20
PROVIDERS: PCP Internal Medicine Medical Oncology; Visit Provider Nurse Practitioner Family
DX: M96.1 Postlaminectomy syndrome, not elsewhere classified (principal); M54.16 Radiculopathy, lumbar region; M47.817 Spondylosis without myelopathy or radiculopathy, lumbosacral region; I73.9 Peripheral vascular disease, unspecified
CPT/HCPCS: 99213; G2211

== ENCOUNTER → 2025-09-10 10:19 | Outpatient (BNVA) | payer MEDICARE, SELFPAY | PROVIDERS: PCP Internal Medicine Medical Oncology; Visit Provider Nurse Practitioner Family | DX: M96.1 Postlaminectomy syndrome, not elsewhere classified (principal); M54.16 Radiculopathy, lumbar region; M47.817 Spondylosis without myelopathy or radiculopathy, lumbosacral region; I73.9 Peripheral vascular disease, unspecified | CPT/HCPCS: 99212 ==

== ENCOUNTER 2025-09-17 09:03 | Outpatient (AMB) | payer MEDICARE, SELFPAY ==
--- OUTSIDE RECORDS SUMMARY | 2024-11-28 04:58 | XMS_ITS ---
Author Organization Trevon Colby III, MD Address [address] [place] [address] [place] [address] Care Team Providers Care Innovation Manager Name Role Phone Dr. Trevon Colby III Primary Care Provider REASON FOR VISIT Rx Request Medications Medication SIG (Take, Route, Frequency, Duration) Notes Start Date End Date Status Naproxen 500 MG 1 tablet with food o r milk Orally every 12 hrs for 90 days Active Clopidogrel Bisulfate 75 MG 1 tablet Orally Once a day 03/30/2021 Unknown Lisinopril-hydroCHLOROthia zide 12.5-10 MG 1 tablet Orally Once a day Unknown Ezetimibe 10 MG 1 tablet Orally Once a day Unknown Aspirin Adult Low Dose 81 MG 1 tablet Orally Once a day Unknown Metoprolol Succinate ER SUC 50MG TAKE 1 TABLET ONCE DAILY Orally Once a day Unknown Social History Sex Assigned At : Social History Observation Description Sex Assigned At Male Encounters Encounter Location Date Provider Diagnosis Trevon Colby III, MD [address] [place] [address] [address] [place] [address] 11/28/2024 Trevon Colby Hyperlipidemia E78.5 Assessments Encounter Date Diagnosis (ICD Code) Assessment Notes Treat ment Notes Treatment Clinical Notes 11/28/2024 Hyperlipidemia (ICD-10 - E78.5) His total cholesterol level is 120. His lipids are in near target range. No change in his medications was made. His lipids were reviewed. He will have fasting lipid profile in the near future. Plan Of Treatment Medication Medication Name Sig Start Date Stop Date Notes Naproxen 500 MG 1 tablet with food o r milk Orally every 12 hrs for 90 days Next Appt Details Provider Name:Trevon Saravia Lasha , 10/29/2025 09:45:00 AM, [address] [facility] [address], [place], [address], Provider Name:Trevon Szymanskine , 05/06/2026 09:30:00 AM, [address] [facility] [address], [place], [address], Progress Notes * Spencer PR[birth year]EDOB:[birth year] (79 yo M)Acc No.[id number]:11/28/2024 Patient: Spencer PATEL :1945 A ge:79 Y S ex:Male Address:[address] [place] [address], [place], [address] * Refills Refill Naproxen Tablet, 500 MG, Orally, 180 Tablet, 1 tablet with food or milk, every 12 hrs, 90 days, Refills=3 Subjective: * Chief Complaints: * R x Request * Medical History: * Surgical History: * Hospitalization/Major Diagno stic Procedure: * Medications: U nknownMetoprolol Succinate ER SUC 50MG Tablet Extended Release [...] Tablet 1 tablet Orally Once a day Unknown Metoprolol Succinate ER SUC 50MG Tablet Extended Release 24 Hour TAKE 1 TABLET ONCE DAILY Orally Once a day Unknown Aspirin Adult Low Dose 81 MG Tablet Delayed Release 1 tablet Orally Once a day Unknown Naproxen 500 MG Tablet 1 tablet with food or milk as needed Orally every 12 hrs Unknown Ezetimibe 10 MG Tablet 1 tablet Orally Once a day Unknown Clopidogrel Bisulfate 75 MG Tablet 1 tablet Orally Once a day Unknown Lisinopril-hydroCHLOROthiazide 12.5-10 MG Tablet 1 tablet Orally Once a day Objective: * Vitals: * Physical Examination: Assessment: * Assessment: 1. H yperlipidemia - E78.5 N otes :His total cholesterol level is 120. His lipids are in near target range. No change in his medications was made. His lipids were reviewed. He will have fasting lipid profile in the near future. Plan: * Treatment: * Procedure Codes: * true * Date: Generated for Allison jimenez/Bhavin/Nakul on: 11/17/2024 09:50 AM EST
--- OUTSIDE RECORDS SUMMARY | 2024-12-12 05:45 | XMS_ITS ---
Author Organization Trevon Colby III, MD Address [address] [place] [address] [place] [address] Care Team Providers Care Terrestrial Ecologist Name Role Phone Dr. Trevon Colby III Primary Care Provider [phone] REASON FOR VISIT Rx ? Medications Medication SIG (Take, Route, Frequency, Duration) Notes Start Date End Date Status Metoprolol Succinate ER SUC 50MG 1 tablet Orally Once a day for 90 days Active Social History Sex Assigned At : Social History Observation Description Sex Assigned At Male Encounters Encounter Location Date Provider Diagnosis Trevon Colby III, MD [address] [place] [address] [place] [address] 12/12/2024 Trevon Colby Hyperlipidemia E78.5 Assessments Encounter Date Diagnosis (ICD Code) Assessment Notes Treat ment Notes Treatment Clinical Notes 12/12/2024 Hyperlipidemia (ICD-10 - E78.5) His total cholesterol level is 120. His lipids are in near target range. No change in his medications was made. His lipids were reviewed. He will have fasting lipid profile in the near future. Plan Of Treatment Medication Medication Name Sig Start Date Stop Date Notes Metoprolol Succinate ER SUC 50MG 1 tablet Orally Once a day for 90 days Next Appt Details Provider Name:Trevon Colby , 10/29/2025 09:45:00 AM, [address] [place] [address] [place], [address], Provider Name:Trevon Colby , 05/06/2026 09:30:00 AM, [address] [place] [address] [place], [address], Progress Notes * Spencer PR[birth year]EDOB:[birth year] (79 yo M)Acc No.[id number]:12/12/2024 Patient: Spencer PATEL :1945 A ge:79 Y S ex:Male Address: [address], [place], [address] * Refills Refill Metoprolol Succinate ER Tablet Extended Release 24 Hour, SUC 50MG, Orally, 90 Tablet, 1 tablet, Once a day, 90 days, Refills=3 * true * Date: Generated for Allison jimenez/Bhavin/Demetriaitting on: 11/17/2024 09:49 AM EST
--- OUTSIDE RECORDS SUMMARY | 2025-01-19 05:21 | XMS_ITS ---
Author Organization Trevon Colby III, MD Address [address] [place] [address] [place] [address] Care Team Providers Care Engine Room Helper Name Role Phone Dr. Trevon Colby III Primary Care Provider REASON FOR VISIT Rx Request Social History Sex Assigned At : Social History Observation Description Sex Assigned At Male Encounters Encounter Location Date Provider Diagnosis Trevon Colby III, MD [address] [place] [address] [place] [address] 01/19/2025 Trevon Colby Plan Of Treatment Next Appt Details Provider Name:Trevon Colby , 10/29/2025 09:45:00 AM, [address] [place] [address] [place], [address], Provider Name:Trevon Colby , 05/06/2026 09:30:00 AM, [address] [place] [address] [facility] [place], [address], Progress Notes * Spencer PR[birth year]EDOB:[birth year] (79 yo M)Acc No.[id number]:01/19/2025 Patient: Spencer PATEL :1945 A ge:79 Y S ex:Male Address:[address] [place], [address] * true * Date: Generated for Printi ng/Faxing/eTransmitting on: 1 11/17/2024 09:48 AM EST
--- OUTSIDE RECORDS SUMMARY | 2025-01-20 06:36 | XMS_ITS ---
Author Organization Trevon Colby III, MD Address [address] [place] [address] Care Team Providers Care Movie Star Name Role Phone Dr. Trevon Colby III [...] Male Encounters Encounter Location Date Provider Diagnosis Treovn Colby III, MD [address] [place] [address] [place] [address] 01/20/2025 Trevon Colby Plan Of Treatment Medication Medication Name Sig Start Date Stop Date Notes Ezetimibe 10 MG 1 tablet Orally Once a day for 90 days 01/20/2025 Atorvastatin Calcium 80 MG 1 tablet Oral ly Once a day for 90 days 01/20/2025 Next Appt Details Provider Name:Trevon Colby , 10/29/2025 09:45:00 AM, [address] [place] [address] [place], [address], Provider Name:Trevon Colby , 05/06/2026 09:30:00 AM, [address] [place] [address] [place], [address], Progress Notes * Spencer [birth year]OB:[birth year] (79 yo M)Acc No.[id number]:01/20/2025 Patient: Spencer PATEL :1945 A ge:79 Y S ex:Male Address:[address] [place] [address], [place], [address] * Refills Start Ezetimibe Tablet, 10 MG, Orally, 90 Tablet, 1 tablet, Once a day, 90 days, Refills=3 Start Atorvastatin Calcium Tablet, 80 MG, Orally, 90 Tablet, 1 tablet, Once a day, 90 days, Refills=3 * true * Date: Generated for Allison jimenez/Bhavin/Nakul on: 11/17/2024 09:48 AM EST
--- OUTSIDE RECORDS SUMMARY | 2025-02-11 05:00 | XMS_ITS ---
Author Organization Trevon Colby III, MD Address [address] [place] [address] [place] [address] Care Team Providers Care Flight Line Service Attendant Name Role Phone Dr. Trevon Colby III Primary Care Provider [phone] Allergies Allergen (clinical drug ingredient) Drug/Non Drug Allergy documented on EMR Reaction Allergy Type Onset Date Status Bee Sting hives Allergy Active acetaminophen / oxycodone Percocet nausea Drug Allergy Active REASON FOR VISIT Recent spine surgery, Peripheral arterial disease, Numbness in both feet, Left peroneal nerve injury, Spinal stenosis, Benign prostatic hypertrophy, Emphysema, Chronic renal disease, Coronary artery disease, History of bladder cancer Medications Medication SIG (Take, Route, Frequency, Duration) Notes Start Date End Date Status Metoprolol Succinate ER SUC 50MG 1 tablet Orally Once a day Active Ezetimibe 10 MG 1 tablet Orally Once a day 01/20/2025 Active Lisinopril-hydroCHLOROthiaz racheal 10-12.5 MG 1 tablet Orally twice a day Active Atorvastatin Calcium 80 MG 1 tablet Oral ly Once a day 01/20/2025 Active Aspirin Adult Low Dose 81 MG 1 tablet Orally Once a day Active Naproxen 500 MG 1 tablet with food o r milk Orally every 12 hrs Active Social History Tobacco Use: Social History Observation Description Date Details (start date - stop date) Former Smoker NA - NA Sex Assigned At : Social History Observation Description Sex Assigned At Male Tobacco Use/Smoking Question Answer Notes Patient is a former smoker How long has it been since you last smoked? 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 This is likely entire operative. We have discusssed the healing of nerve tissue ttoday. Vital Signs Temperature 97.3 degrees Fahrenheit 02/12/20 25 Blood pressure systolic 139 mm Hg 02/12/20 25 Blood pressure diastolic 59 mm Hg 025 Heart Rate 60 /min 02/11/2025 Height 66 in 02/11/2025 Weight 173 lbs 02/11/2025 BMI 27.92 kg/m2 02/11/2025 Encounters Encounter Location Date Provider Diagnosis Trevon Colby III, MD [address] [place] [address] [place] [address] 02/11/2025 Trevon Colby Injury of left peron eal nerve, sequela S84.12XS ; Hyperlipidemia E78.5 ; Stage 2 chronic kidney disease N18.2 ; Osteoarthritis of right hip M16.11 ; Overweight E66.3 ; Spinal stenosis, lumbar M48.06 ; BPH (benign prostatic hyperplasia) N40.0 ; Former smoker Z87.891 and Peripheral vascular disease I73.9 Assessments Encounter Date Diagnosis (ICD Code) Assessment Notes Treat ment Notes Treatment Clinical Notes 02/11/2025 Injury of left peroneal nerve, sequela (ICD-10 - S84.12XS) the EMG Indicates an injury at L5-S1. This is likely entire operative. We have discusssed the healing of nerve tissue ttoday. 02/11/2025 Hyperlipidemia (ICD-10 - E78.5) His total cholesterol level is 120. His lipids are in near target range. No change in his medications was made. His lipids were reviewed. He will have fasting lipid profile in the near future. 02/11/2025 Stage 2 chronic kidney disease (ICD-10 - N18.2) His GFR has improved substantially since his last blood test. His urinary tract is currently asymptomatic. 02/11/2025 Osteoarthritis of right hip (ICD-10 - M16.11) . He describes a hip pain as mild today. 02/11/2025 Overweight (ICD-10 - E66.3) His body mass index is 27. He has gained 3 pounds since his last visit. We reviewed his weight loss strategy and discussed this. 02/11/2025 Spinal stenosis, lumbar (ICD-10 - M48.06) The lumbar fusiontook place without side effects or incidents. He notices a substantial improvement in his back pain. The wound is well-healed. He reports much less pain with ambulation. 02/11/2025 BPH (benign prostati c hyperplasia) (ICD-10 - N40.0) He arises from sleep once or twice a night to urinate. We have discussed lifestyle modifications he could make to reduce nocturia. 02/11/2025 Former smoker (ICD-1 0 - Z87.891) He is highly motivated not to smoke and we discussed means of preserving abstinence in times of stress. 02/11/2025 Peripheral vascular disease (ICD-10 - I73.9) He [...] 2024 and was thought to be stable. Plan Of Treatment Medication Medication Name Sig Start Date Stop Date Notes Metoprolol Succinate ER SUC 50MG 1 tablet Orally Once a da y Ezetimibe 10 MG 1 tablet Orally Once a day 01/20/2025 Lisinopril-hydroCHLOROthiazi de 10-12.5 MG 1 tablet Orally twice a day Atorvastatin Calcium 80 MG 1 tablet Orally Once a day 01/10 Aspirin Adult Low Dose 81 MG 1 tablet Orally Once a day Naproxen 500 MG 1 tablet with food o r milk Orally every 12 hrs Pending Test Test Name Order Date PROFILE, FASTING (COMPREHENSIVE METABOLI C) 02/11/2025 CBC w DIFF 02/11/2025 Lipid Panel 02/11/2025 Next Appt Details Follow Up: 4 Months, Reason: ov review labs Provider Name:Trveon Colby , 10/29/2025 09:45:00 AM, [address] [place] [address] DR JORGE ALBERTO Carmela, [place], [address], Provider Name:Trevon Colby , 05/06/2026 09:30:00 AM, [address] [place] [address] JORGE ALBERTO DANIELSON, [place], [address], Progress Notes * Spencer PR[birth year]EDOB:[birth year] (79 yo M)Acc No.[id number]:02/11/2025 Progress Notes Patient: Spencer PATEL Provider: Eduar Colby MD :1945 A ge:79 Y S ex:Male Date:02/11/2025 Address: [address] [place] [id number] Subjective: * Chief Complaints: * R ecent spine surgeryPeripheral arterial diseaseNumbness in both feetLeft peroneal nerve injurySpinal stenosisBenign prostatic hypertrophyEmphysemaChronic renal diseaseCoronary artery diseaseHistory of bladder cancer * HPI: C OVID-19 Screening: Kelley rangel returns for a scheduled visit to manage his numerous medical issues at the age of 79. On September 18, 2025 at [facility] by Dr. Baltazar he had and L2 and L5 oblique lateral interbody fusion for chronic pain and stenosis. He had previously had an L3-4 and 5, laminectomy. Since that time he is complaining that his left leg is numb and painful. The right leg also has a known foot. He described a sense tingling. He went back to see the surgeon and had an EMG which showed an unresponsive left peroneal nerve at the L5-S1 level. He is able to walk without a dropped foot. He says he is able to live with the tingling and numbness.? Both feet were pink and warm today with no signs of ischemic tissue loss. The right hip remains painful. He is rising from sleep once or twice a night to urinate. He has much less lumbar pain than before. He is not smoking. He denies any gross hematuria and is up-too-date with his urologist. He is short of breath with exertion from emphysema but quite comfortable at rest. He has had no infections. Questions H ave you had any new onset fever, chills, cough, congestion, sore throat, shortness of breath, muscle aches? N o * ROS: G eneral/Constitutional: pain H ips, left foot. C hills d enies. F atigue a dmits. F ever d enies. E NT: Decreased hearing d enies. R espiratory: Cough d enies. C ardiovascular: Chest pain with exertion d enies. D yspnea on exertion?with moderate activity. S hortness of breath w ith exertion. G astrointestinal: Constipation o ccasional. D ecreased [...] enies.?Headache d enies. L ow back pain t hat is chronic. P sychiatric: Depressed mood w hich is mild. * Medical History: * Surgical History: h erniorrhaphy appendectomy Hip replacement right Cataract surgery both eyes 2011colonoscopy, tubular adenoma 2003colonoscopy, negative 2007colonoscopy, negative 2012cardiac catheterization with stent insertion, inferior wall ischemia, 99% right coronary artery stenosis 2016left iliofemoral endarterectomy 2016right common femoral artery angioplasty 2016carpal tunnel surgery right hand, Instrum 04/2018carpal tunnel right hand 10/2019Angiogram Dr. Bear 1Lumbar L3-5 Laminectomy, partial facetectomy, foraminotomy, [facility], Dr Baltazar 3Angioplasty right peroneal and popliteal artery 1Right popliteal and peroneal artery atherectomy and angioplasty 12/2017Left femoral endarterectomy, right superficial Femoral artery atherectomy and angioplasty [id number] fusion [facility] [place] 09/18/2024 * Hospitalization/Major Diagno stic Procedure: B [...] Non-User E x-cigarette smoker * Medications: T akingNaproxen 500 MG Tablet 1 tablet with food or milk Orally every 12 hrs Metoprolol Succinate ER SUC 50MG Tablet Extended Release 24 Hour 1 tablet Orally Once a day Ezetimibe 10 MG Tablet 1 tablet Orally Once a day Atorvastatin Calcium 80 MG Tablet 1 tablet Orally Once a day Aspirin Adult Low Dose 81 MG Tablet Delayed Release 1 tablet Orally Once a day Lisinopril-hydroCHLOROthiazide 10-12.5 MG Tablet 1 tablet Orally twice a day Taking Naproxen 500 MG Tablet 1 tablet with food or milk Orally every 12 hrs Taking Metoprolol Succinate ER SUC 50MG Tablet Extended Release 24 Hour 1 tablet Orally Once a day Taking Ezetimibe 10 MG Tablet 1 tablet Orally Once a day Taking Atorvastatin Calcium 80 MG Tablet 1 tablet Orally Once a day Taking Aspirin Adult Low Dose 81 MG Tablet Delayed Release 1 tablet Orally Once a day Taking Lisinopril-hydroCHLOROthiazide 10-12.5 MG Tablet 1 tablet Orally twice a day DiscontinuedEzetimibe 10 MG Tablet 1 tablet Orally Once a day Clopidogrel Bisulfate 75 MG Tablet 1 tablet Orally Once a day Medication List reviewed and reconciled with the patientDiscontinued Ezetimibe 10 MG Tablet 1 tablet Orally Once a day Discontinued Clopidogrel Bisulfate 75 MG Tablet 1 tablet Orally Once a day Medication List reviewed and reconciled with the patient * Allergies: P ercocet: nausea - Side EffectsBee Sting: hives - Allergyno[Allergies Verified] Objective: * Vitals: H t: 66, Wt:173, BMI:27.92, BP:139/59, HR:60, Temp:97.3, Ht-cm: 167.64, Wt-k.47. * P ast Orders: Lab:Prostate Specific Antige n * Collection Date 02/03/2025 07/24/2024 04/21/2024 Collection Time 07:59 AM 08:07 AM 07:58 AM Order Date 02/03/2025 07/24/2024 04/21/2024 Prostate Specific Antigen 2.83 (Ref Range: <0.05-4.0 ng/mL) 2.80 (Ref Range: <0.05-4.0 ng/mL) 3.57 (Ref Range: <0.05-4.0 ng/mL) * Lab:Complete Blood Count Aut o Diff * Collection Date 02/03/2025 09/18/2024 07/24/2024 Collection Time 07:59 AM 09:09 AM 08:07 AM Order Date 02/03/2025 09/18/2024 07/24/2024 White Blood Count 5.0 (Ref Range: 4.8-10.8 X10*3/uL) 11.7 H (Ref Range: 4.8-10.8 X10*3/uL) 5.0 (Ref Range: 4.8-10.8 X10*3/uL) Red Blood Count 3.97 L (Ref Range: 4.60-5.80 X10*6/uL) 2.89 L (Ref Range: 4.60-5.80 X10*6/uL) 3.68 L (Ref Range: 4.60-5.80 X10*6/uL) Hemoglobin 12.6 L (Ref Range: 14.0-18.0 g/dl) 9.9 L (Ref Range: 14.0-18.0 g/dl) 12.5 L (Ref Range: 14.0-18.0 g/dl) Hematocrit 38.4 L (Ref Range: 42.0-52.0 %) 29.0 L (Ref Range: 42.0-52.0 %) 37.0 L (Ref Range: 42.0-52.0 %) Mean Corpuscular Volume 96.7 (Ref Range: 80.0-98.0 fL) 100.3 H (Ref Range: 80.0-98.0 fL) 100.5 H (Ref Range: 80.0-98.0 fL) Mean Corpuscular Hemoglobin 31.7 (Ref Range: 27.0-33.0 pg) 34.3 H (Ref Range: 27.0-33.0 pg) 34.0 H (Ref Range: 27.0-33.0 pg) Mean Corpuscular HGB Conc 32.8 (Ref Range: 31.0-36.0 g/dl) 34.1 (Ref Range: 31.0-36.0 g/dl) 33.8 (Ref Range: 31.0-36.0 g/dl) Red Cell Distribution Width 13.3 (Ref Range: 11.0-16.0 %) 12.7 (Ref Range: 11.0-16.0 %) 13.3 (Ref Range: 11.0-16.0 %) Platelet Count 267 (Ref Range: 160-400 X10*3/uL) 196 (Ref Range: 160-400 X10*3/uL) 266 (Ref Range: 160-400 X10*3/uL) Mean Platelet Volume 9.4 (Ref Range: 9.4-12.4 fL) 9.4 (Ref Range: 9.4-12.4 fL) 9.7 (Ref Range: 9.4-12.4 fL) Neutrophils Percent Auto 54.5 (Ref Range: 45-73 %) 79.4 H (Ref Range: 45-73 %) 48.1 (Ref Range: 45-73 %) Imm Gran Pct Auto 0.2 (Ref Range: 0.0-0.4 %) 0.6 H (Ref Range: 0.0-0.4 %) 0.4 (Ref Range: 0.0-0.4 %) Lymphocytes Percent Auto 28.3 (Ref Range: 20-40 %) 8.3 L (Ref Range: 20-40 %) 28.7 (Ref Range: 20-40 %) Monocytes Percent Auto 11.0 (Ref Range: 2-11 %) 11.4 H (Ref Range: 2-11 %) 12.5 H (Ref Range: 2-11 %) Eosinophils Percent Auto 4.8 H (Ref Range: 0-4 %) 0.1 (Ref Range: 0-4 %) 9.1 H (Ref Range: 0-4 %) Basophils Percent Auto 1.2 (Ref Range: 0-2 %) 0.2 (Ref Range: 0-2 %) 1.2 (Ref Range: 0-2 %) NRBC Pct Auto 0.0 (Ref Range: 0.0-0.2 /100WBC) 0.0 (Ref Range: 0.0-0.2 /100WBC) 0.0 (Ref Range: 0.0-0.2 /100WBC) Neutrophils Absolute Auto 2.7 (Ref Range: 2.0-8.3 x10*3/uL) 9.3 H (Ref Range: 2.0-8.3 x10*3/uL) 2.4 (Ref Range: 2.0-8.3 x10*3/uL) Imm Gran Abs Auto 0.01 (Ref Range: 0.00-0.03 X10*3/uL) 0.07 H (Ref Range: 0.00-0.03 X10*3/uL) 0.02 (Ref Range: 0.00-0.03 X10*3/uL) Lymphocytes Absolute Auto 1.4 (Ref Range: 1.2-4.9 X10*3/uL) 1.0 L (Ref Range: 1.2-4.9 X10*3/uL) 1.4 (Ref Range: 1.2-4.9 X10*3/uL) Monocytes Absolute Auto 0.6 (Ref Range: 0.1-1.2 X10*3/uL) 1.3 H (Ref Range: 0.1-1.2 X10*3/uL) 0.6 (Ref Range: 0.1-1.2 X10*3/uL) Eosinophils Absolute Auto 0.2 (Ref Range: 0.0-0.4 X10*3/uL) 0.0 (Ref Range: 0.0-0.4 X10*3/uL) 0.5 H (Ref Range: 0.0-0.4 X10*3/uL) Basophils Absolute Auto 0.1 (Ref Range: 0.0-0.2 X10*3/uL) 0.0 (Ref Range: 0.0-0.2 X10*3/uL) 0.1 (Ref Range: 0.0-0.2 X10*3/uL) NRBC Abs Auto 0.000 (Ref Range: 0.0-0.012 X10*3/uL) 0.000 (Ref Range: 0.0-0.012 X10*3/uL) 0.000 (Ref Range: 0.0-0.012 X10*3/uL) * Lab:Abelardo Grossman abdullahi Fast * Collection Date 02/03/2025 07/24/2024 04/21/2024 Collection Time 07:59 AM 08:07 AM 07:58 AM Order Date 02/03/2025 07/24/2024 04/21/2024 Sodium 137 (Ref Range: 135-145 mmol/L) 137 (Ref Range: 135-145 mmol/L) 137 (Ref Range: 135-145 mmol/L) Bilirubin Total 0.5 (Ref Range: 0.0-1.0 mg/dL) 0.7 (Ref Range: 0.0-1.0 mg/dL) 0.4 (Ref Range: 0.0-1.0 mg/dL) Aspartate Amino Transferase 30 (Ref Range: 5-37 U/L) 22 (Ref Range: 5-37 U/L) 21 (Ref Range: 5-37 U/L) Alanine Aminotransferase 16 (Ref Range: 0-40 U/L) 13 (Ref Range: 0-40 U/L) 18 (Ref Range: 0-40 U/L) Total Protein 6.7 (Ref Range: 6.5-8.0 g/dL) 6.8 (Ref Range: 6.5-8.0 g/dL) 7.0 (Ref Range: 6.5-8.0 g/dL) Albumin Level 3.7 (Ref Range: 3.5-5.0 g/dL) 3.8 (Ref Range: 3.5-5.0 g/dL) 3.9 (Ref Range: 3.5-5.0 g/dL) Alkaline Phosphatase 107 (Ref Range: 39-117 U/L) 92 (Ref Range: 39-117 U/L) 96 (Ref Range: 39-117 U/L) Potassium 4.6 (Ref Range: 3.3-5.1 mmol/L) 4.8 (Ref Range: 3.3-5.1 mmol/L) 4.3 (Ref Range: 3.3-5.1 mmol/L) Chloride 106 (Ref Range: 96-108 mmol/L) 106 (Ref Range: 96-108 mmol/L) 104 (Ref Range: 96-108 mmol/L) Carbon Dioxide 26 (Ref Range: 22-29 mmol/L) 26 (Ref Range: 22-29 mmol/L) 29 (Ref Range: 22-29 mmol/L) Anion Gap 10 L (Ref Range: 12-20) 10 L (Ref Range: 12-20) 8 L (Ref Range: 12-20) Blood Urea Nitrogen 29 H (Ref Range: 9-16 mg/dL) 32 H (Ref Range: 9-16 mg/dL) 35 H (Ref Range: 9-16 mg/dL) Creatinine 1.28 (Ref Range: 0.5-1.4 mg/dL) 1.48 H (Ref Range: 0.5-1.4 mg/dL) 1.45 H (Ref Range: 0.5-1.4 mg/dL) Estimated Glomerular Filt Rate 54 46 47 Glucose Fasting 87 (Ref Range: 60-99 mg/dL) 94 (Ref Range: 60-99 mg/dL) 92 (Ref Range: 60-99 mg/dL) Calcium 9.6 (Ref Range: 8.4-10.2 mg/dL) 9.8 (Ref Range: 8.4-10.2 mg/dL) 10.0 (Ref Range: 8.4-10.2 mg/dL) * Lab:Lipid Panel * Collection Date 02/03/2025 07/24/2024 04/21/2024 Collection Time 07:59 AM 08:07 AM 07:58 AM Order Date 02/03/2025 07/24/2024 04/21/2024 Triglycerides 56 (Ref Range: <150 mg/dL) 60 (Ref Range: <150 mg/dL) 61 (Ref Range: <150 mg/dL) Cholesterol 122 (Ref Range: <200 mg/dL) 120 (Ref Range: <200 mg/dL) 123 (Ref Range: <200 mg/dL) LDL Cholesterol Calculated 57 (Ref Range: <100 mg/dL) 58 (Ref Range: <100 mg/dL) 60 (Ref Range: <100 mg/dL) HDL Cholesterol 54 (Ref Range: >40 mg/dL) 50 (Ref Range: >40 mg/dL) 51 (Ref Range: >40 mg/dL) ???Imaging:MR lumbar spine wo/w con (Order Date - 11/19/2024) (Performed Date - 11/19/2024) * Imaging:XR lumbar spine 4V m in * Performed Date 11/17/2024 05/12/2024 08/08/2023 08:55 AM 03:34 PM 09:55 AM Order Date 11/17/2024 05/12/2024 08/08/2023 * Examination: G eneral Examination: GENERAL APPEARANCE: p leasant, well nourished, well developed, in no acute distress, calm and relaxed, overweight, elderly man. HEAD: a traumatic, normocephalic. EYES: e [...] no s3, or vascular bruits. LUNGS: , diminished breath sounds throughout, no wheezes, rales, rhonchi, good air movement. BREASTS: no masses palpable bilaterally. ABDOMEN: b owel sounds normal, no ascites, no organomegaly, no mass, overweight. RECTAL EXAM: n ot examined. MUSCULOSKELETAL: e xtremities unremarkable, no clubbing, cyanosis or edema,Feet are pink and warm. PERIPHERAL PULSES: n ormal. NEUROLOGIC: a lert and oriented, cranial nerves 2-12 grossly intact, deep tendon reflexes 2+ symmetrical, motor strength normal upper and lower extremities, sensory exam Decreased sensation left foot. PSYCH: a lert, oriented. Assessment: * Assessment: 1. I njury of left peroneal nerve, sequela - S84.12XS (Primary) N otes :the EMG Indicates an injury at L5-S1. This is likely entire operative. We have discusssed the healing of nerve tissue ttoday. 2 . H yperlipidemia - E78.5 N otes :His total cholesterol level is 120. His lipids are in near target range. No change in his medications was made. His lipids were reviewed. He will have fasting lipid profile in the near future. 3 . S tage 2 chronic kidney disease - N18.2 N otes :His GFR has improved substantially since his last blood test. His urinary tract is currently asymptomatic. 4 . O steoarthritis of right hip - M16.11 N otes :. He describes a hip pain as mild today. 5 . O verweight - E66.3 N otes :His body mass index is 27. He has gained 3 pounds since his last visit. We reviewed his weight loss strategy and discussed this. 6 . S sandra stenosis, lumbar - M48.06 N otes :The lumbar fusiontook place without side effects or incidents. He notices a substantial improvement in his back pain. The wound is well-healed. He reports much less pain with ambulation. 7 . B PH (benign prostatic hyperplasia) - N40.0 N otes :He arises from sleep once or twice a night to urinate. We have discussed lifestyle modifications he could make to reduce nocturia. 8 . F ormer smoker - Z87.891 N otes :He is highly motivated not to smoke and we discussed means of preserving abstinence in times of stress. 9 . P eripheral vascular disease - I73.9 [...] 2024 and was thought to be stable. Plan: * Treatment: 2. S tage 2 chronic kidney disease L AB: PROFILE, FASTING (COMPREHENSIVE METABOLIC) L AB: CBC w DIFF L AB: Lipid Panel 3. O steoarthritis of right hip L AB: PROFILE, FASTING (COMPREHENSIVE METABOLIC) L AB: CBC w DIFF L AB: Lipid Panel * Procedure Codes: * Preventive Medicine: Counseling: C are goal follow-up plan: Counseling for abnormal BMI given Y es Above Normal BMI Follow-up D ietary needs education, Exercise promotion: strength training S moking/Tobacco Use Patient counseled on the dangers of tobacco use and urged to quit. 0 02/11/2025 * Follow Up: 4 Months (Reason: ov review labs) * Images: * Sign off status: Completed true * Provider: Eduar Colby MD Date: 0 02/11/2025 Generated for Allison jimenez/Bhavin/Nakul on: 11/17/2024 09:49 AM EST History and Physical Notes * HPI (History of Present Illness) Category Sub-Category Detail Notes COVID-19 Screening Questions Have you had any new onset fever, chills, cough, congestion, sore throat, shortness of breath, muscle aches?: No Examination Category Sub-Category Detail Notes General Examination GENERAL APPEARANCE: pleasant , well nourished, well developed, in no acute distress, calm and relaxed, overweight, elderly man HEAD: atraumatic, normocep halic EYES: eomi, perrla, anicte vinay, conjugate EARS: normal NOSE: septum intact NECK/THYROID: no jugular venous di stention, no carotid bruit, thyroid normal HEART: no clicks, gallops, murmurs, or rubs, regular rhythm, S1, S2 normal, no s3, or vascular bruits LUNGS: , diminished breath sounds throughout, no wheezes, rales, rhonchi, good air movement ABDOMEN: bowel sounds normal, no ascites, no organomegaly, no mass, overweight NEUROLOGIC: alert and oriented, cranial nerves 2-12 grossly intact, deep tendon reflexes 2+ symmetrical, motor strength normal upper and lower extremities, sensory exam Decreased sensation left foot SKIN: no suspicious lesion s, anicteric PERIPHERAL PULSES: normal BREASTS: no masses palpable b ilaterally MUSCULOSKELETAL: extremities unremark able, no clubbing, cyanosis or edema, Feet are pink and warm LYMPH NODES: no enlarged lymph no nacho,spleen normal RECTAL EXAM: not examined PSYCH: alert, oriented ORAL CAVITY: normal, unremarkable
--- OUTSIDE RECORDS SUMMARY | 2025-04-13 08:30 | XMS_ITS ---
Author Organization Trevon Colby III, MD Address [address] [place] [address] [place] [address] Care Team Providers Care Underlay Stitcher Name Role Phone Dr. Trevon Colby III Primary Care Provider Allergies Allergen (clinical drug ingredient) Drug/Non Drug Allergy documented on EMR Reaction Allergy Type Onset Date Status Bee Sting hives Allergy Active acetaminophen / oxycodone Percocet nausea Drug Allergy Active REASON FOR VISIT Epistaxis, Arthritis right hip, Spinal stenosisBenign prostatic hypertrophy, History of bladder cancer, Peripheral vascular disease, Chronic renal disease Medications Medication SIG (Take, Route, Frequency, Duration) Notes Start Date End Date Status Ezetimibe 10 MG 1 tablet Orally Once a day 01/20/2025 Active Atorvastatin Calcium 80 MG 1 tablet Oral ly Once a day 01/20/2025 Active Metoprolol Succinate ER SUC 50MG 1 tablet Orally Once a day Active Aspirin Adult Low Dose 81 MG 1 tablet Orally Once a day Active Lisinopril-hydroCHLOROthiaz racheal 10-12.5 MG 1 tablet Orally twice a day Active Naproxen 500 MG 1 [...] Problem Status W/U Status Risk Notes Problem [id number] Recurrent epistaxis (R04.0) Active confirmed He will continue the use of aspirin. He was instructed on techniques to stop bleeding. He was instructed to go to the emergency room if bleeding does not stop. If this continues he will see ENT for definitive treatment. Vital Signs Temperature 98.1 degrees Fahrenheit 04/13/20 25 Blood pressure systolic 120 mm Hg 04/13/20 25 Blood pressure diastolic 63 mm Hg 025 Heart Rate 66 /min 04/13/2025 Height 66 in 04/13/2025 Weight 171 lbs 04/13/2025 BMI 27.6 kg/m2 04/13/2025 Encounters Encounter Location Date Provider Diagnosis Trevon Colby III, MD [address] [place] [address] [place] [address] 04/13/2025 Trevon Colby Hyperlipidemia E78.5 ; Recurrent epistaxis R04.0 ; Osteoarthritis of right hip M16.11 ; Spinal stenosis, lumbar M48.06 ; Former smoker Z87.891 and Peripheral vascular disease I73.9 Assessments Encounter Date Diagnosis (ICD Code) Assessment Notes Treat ment Notes Treatment Clinical Notes 04/13/2025 Hyperlipidemia (ICD-10 - E78.5) His total cholesterol level is 120. His lipids are in near target range. No change in his medications was made. His lipids were reviewed. He will have fasting lipid profile in the near future. 04/13/2025 Recurrent epistaxis (ICD-10 - R04.0) He will continue the use of aspirin. He was instructed on techniques to stop bleeding. He was instructed to go to the emergency room if bleeding does not stop. If this continues he will see ENT for definitive treatment. 04/13/2025 Osteoarthritis of right hip (ICD-10 - M16.11) . He describes a hip pain as mild today. 04/13/2025 Spinal stenosis, lumbar (ICD-10 - M48.06) The lumbar fusiontook place without side effects or incidents. He notices a substantial improvement in his back pain. The wound is well-healed. He reports much less pain with ambulation. 04/13/2025 Former smoker (ICD-1 0 - Z87.891) He is highly motivated not to smoke and we discussed means of preserving abstinence in times of stress. 04/13/2025 Peripheral vascular disease (ICD-10 - I73.9) He [...] 1 tablet Orally Once a day 01/20/2025 Atorvastatin Calcium 80 MG 1 tablet Orally Once a day 01/10 Metoprolol Succinate ER SUC 50MG 1 tablet Orally Once a da y Aspirin Adult Low Dose 81 MG 1 tablet Orally Once a day Lisinopril-hydroCHLOROthiazi de 10-12.5 MG 1 tablet Orally twice a day Naproxen 500 MG 1 tablet with food o r milk Orally every 12 hrs Next Appt Details Follow Up: As Scheduled, Edith son: Annual Exam Provider Name:Trevon Colby , 10/29/2025 09:45:00 AM, [address] [place] [address] [address], [place], [address], Provider Name:Trevon Colby , 05/06/2026 09:30:00 AM, [address] [place] [address] [address], [place], [address], Progress Notes * Spencer PR[birth year]EDOB:[birth year] (79 yo M)Acc No.[id number]:04/13/2025 Progress Notes Patient: Spencer PATEL Provider: Eduar Colby MD :1945 A ge:79 Y S ex:Male Date:04/13/2025 Address:[address] [place] [address] [place], [place]-[phone] Subjective: * Chief Complaints: * E pistaxisArthritis right hipSpinal stenosisBenign prostatic hypertrophyHistory of bladder cancerPeripheral vascular diseaseChronic renal disease * HPI: C OVID-19 Screening: He comes to the office for a same day visit because he has had several episodes of nose bleeding from the right nostril each time over the last 2 weeks. He is using aspirin for anticoagulation. He has had no difficulty stopping the blood flow. Examination of the right nares and septum showed no significant abnormality or polyp. He was instructed to use a thin layer of petroleum jelly on the inside of the nostrils twice a day and to avoid traumatizing the area. He was instructed how to stop the bleeding. He was instructed to go to the emergency room for cauterization if the bleeding does not stop. Questions H ave you had any new onset fever, chills, cough, congestion, sore throat, shortness of breath, muscle aches? N o * : epistaxis 1 month 3 profuse, left. * ROS: G eneral/Constitutional: pain o nly normal aches and pains. C hills d enies.?Fatigue a dmits. F ever d enies. E NT: Decreased hearing i n both ears. R espiratory: Cough d enies. C ardiovascular: [...] have been noted. G enitourinary: Frequent urination t wice a night. M usculoskeletal: Muscle aches d [...] Bear 1Lumbar L3-5 Laminectomy, partial facetectomy, foraminotomy, [facility], Dr Baltazar 3Angioplasty right peroneal and popliteal artery 04/13/2021ight popliteal and peroneal artery atherectomy and angioplasty 12/2017Left femoral endarterectomy, right superficial Femoral artery atherectomy and angioplasty 06/[id number] fusion [facility] [place] 09/18/2024 * Hospitalization/Major Diagno [...] Tablet 1 tablet Orally twice a day Medication List reviewed and reconciled with the patientTaking Naproxen 500 MG Tablet 1 tablet with [...] Tablet 1 tablet Orally twice a day Medication List reviewed and reconciled with the patient * Allergies: P ercocet: nausea - Side EffectsBee Sting: hives - Allergyno[Allergies Verified] Objective: * Vitals: H t: 66, Wt:171, BMI:27.6, BP:120/63, HR:66, Temp:98.1, Ht-cm: 167.64, Wt-k.56. * Examination: G eneral Examination: GENERAL APPEARANCE: p burt, well nourished, well developed, in no acute distress, calm and relaxed, overweight, man. HEAD: a traumatic, normocephalic. EYES: e hasmukh, perrla, anicteric, conjugate. EARS: n ormal. NOSE: U nremarkable nostrils, small excoriation right septum. ORAL CAVITY: n ormal, unremarkable. NECK/THYROID: n o jugular venous distention, no carotid bruit, thyroid normal. LYMPH NODES: n o enlarged lymph nodes,spleen normal. SKIN: n o suspicious lesions, anicteric. HEART: n o clicks, gallops, murmurs, or rubs, regular rhythm, S1, S2 normal, no s3, or vascular bruits. LUNGS: c lear to auscultation . BREASTS: no masses palpable bilaterally. ABDOMEN: b owel sounds normal, no ascites, no organomegaly, no mass. RECTAL EXAM: n ot examined. MUSCULOSKELETAL: e xtremities unremarkable, no clubbing, cyanosis or edema. PERIPHERAL PULSES: D iminished in the lower extremities.? NEUROLOGIC: a lert and oriented, cranial nerves 2-12 grossly intact, deep tendon reflexes 2+ symmetrical, motor strength normal upper and lower extremities, sensory exam intact. PSYCH: a lert, oriented. Assessment: * Assessment: 1. R ecurrent epistaxis - R04.0 (Primary) N otes :He will continue the use of aspirin. He was instructed on techniques to stop bleeding. He was instructed to go to the emergency room if bleeding does not stop. If this continues he will see ENT for definitive treatment. 2 . H yperlipidemia - E78.5 N otes :His total cholesterol level is 120. His lipids are in near target range. No change in his medications was made. His lipids were reviewed. He will have fasting lipid profile in the near future. 3 . O steoarthritis of right hip - M16.11 N otes :. He describes a hip pain as mild today. 4 . S sandra stenosis, lumbar - M48.06 N otes :The lumbar fusiontook place without side effects or incidents. He notices a substantial improvement in his back pain. The wound is well-healed. He reports much less pain with ambulation. 5 . F ormer smoker - Z87.891 N otes :He is highly motivated not to smoke and we discussed means of preserving abstinence in times of stress. 6 . P eripheral vascular disease - I73.9 [...] thought to be stable. Plan: * Treatment: * Procedure Codes: * Preventive Medicine: Counseling: C are goal follow-up plan: Counseling for abnormal BMI given Y es Above Normal BMI Follow-up D ietary needs education S moking/Tobacco Use Patient counseled on the dangers of tobacco use and urged to quit. 0 04/13/2025 * Follow Up: A s Scheduled (Reason: Annual Exam) * Images: * Sign off status: Completed true * Provider: Eduar Colby MD Date: 0 04/13/2025 Generated for Allison jimenez/Bhavin/Alexsmitting on: 1 11/17/2024 09:49 AM EST History and Physical [...] perrla, anicte vinay, conjugate EARS: normal NOSE: Unremarkable nostril s, small excoriation right septum NECK/THYROID: no jugular venous di stention, no [...] no suspicious lesion s, anicteric PERIPHERAL PULSES: Diminished in the lo wer extremities BREASTS: no masses palpable b ilaterally MUSCULOSKELETAL: extremities unremark able, no clubbing, cyanosis or edema LYMPH NODES: no enlarged lymph no nacho,spleen normal RECTAL EXAM: not examined PSYCH: alert, oriented ORAL CAVITY: normal, unremarkable
--- OUTSIDE RECORDS SUMMARY | 2025-05-05 04:30 | XMS_ITS ---
Author Organization Trevon Colby III, MD Address [address] [place] [address] [place] [address] Care Team Providers Care Geospatial Information Scientist Name Role Phone Dr. Trevon Colby III Primary Care Provider [phone] Allergies Allergen (clinical drug ingredient) Drug/Non Drug Allergy documented on EMR Reaction Allergy Type Onset Date Status No Known Food Allergy Unknown Drug Allergy Active acetaminophen / oxycodone Percocet nausea Drug Allergy Active Bee Sting hives Allergy Active Results Component Value Reference Range Notes URINE DIP STICK Reviewed date:05/05/2025 09:58:58 AM Interpretation: Performing Lab: Notes/Report: SG 1.020 [...] Duration) Notes Start Date End Date Status Atorvastatin Calcium 80 MG 1 tablet Oral ly Once a day 01/20/2025 Active Aspirin Adult Low Dose 81 MG 1 tablet Orally Once a day Active Metoprolol Succinate ER SUC 50MG 1 tablet Orally Once a day Active Ezetimibe 10 MG 1 tablet Orally Once a day 01/20/2025 Active Naproxen 500 MG 1 tablet with food o r milk Orally every 12 hrs Active Amoxicillin 500 MG 4 capsules Orally on ce before dental surgery for 1 days 05/07/2025 05/13/2025 Active Lisinopril-hydroCHLOROthia zide 10-12.5 MG 1 tablet Orally twice a day Active Eucerin Active Social History Tobacco Use: Social History Observation Description Date Details (start date - stop date) Former Smoker NA - NA Sex Assigned At : Social History Observation Description Sex Assigned At Male Tobacco Control (Standard) Question Answer Notes Tobacco use: Former smoker How long has it been since you last smoked? Grea ter than 10 years Additional Findings: Tobacco non-user Aggressive nonsmoker AUDIT-C (Standard) Question Answer Notes Did you have a drink contain ing alcohol in the past year? Yes How often did you have six o r more drinks on one occasion in the past year? Less than monthly (1 point) How many drinks did you have on a typical day when you were drinking in the past year? 1 or 2 drinks (0 point) How often did you have a dri nk containing alcohol in the past year? Never (0 point) Points 1 Interpretation Negative Vital Signs Temperature 97.3 degrees Fahrenheit 05/05/20 25 Blood pressure systolic 107 mm Hg 05/05/20 25 Blood pressure diastolic 64 mm Hg 025 Heart Rate 58 /min 05/05/2025 Height 66 in 05/05/2025 Weight 163 lbs 05/05/2025 BMI 26.31 kg/m2 05/05/2025 Encounters Encounter Location Date Provider Diagnosis Trevon Colby III, MD [address] [place] [address] DR [facility], [place] [address] 05/05/2025 Trevon Colby Hyperlipidemia E78.5 ; Peripheral vascular disease I73.9 ; Overweight E66.3 ; Osteoarthritis of right hip M16.11 ; Spinal stenosis, lumbar M48.06 ; Degenerative joint disease (DJD) of lumbar spine M47.816 ; Carpal tunnel syndrome, right upper limb G56.01 ; History of bladder cancer Z85.51 ; Coronary artery disease I25.10 ; Stage 2 chronic kidney disease N18.2 ; Former smoker Z87.891 and Emphysema lung J43.9 Assessments Encounter Date Diagnosis (ICD Code) Assessment Notes Treat ment Notes Treatment Clinical Notes 05/05/2025 Hyperlipidemia (ICD-10 - E78.5) His total cholesterol level is 104. His lipids are in near target range. No change in his medications was made. His lipids were reviewed. He will have fasting lipid profile in the near future. 05/05/2025 Peripheral vascular disease (ICD-10 - I73.9) He [...] 2024 and was thought to be stable. 05/05/2025 Overweight (ICD-10 - E66.3) His body mass index is 26. He has lost another 8 pounds. He reports he has no appetite. Because of his weight loss is unclear. He has a number of active medical problems which may be the cause. His bladder cancer is thought to be in remission. All of his medical problems are being reevaluated. I have counseled him about a healthy weight maintenance diet low in cholesterol. 05/05/2025 Osteoarthritis of right hip (ICD-10 - M16.11) . He describes a hip pain as mild today. 05/05/2025 Spinal stenosis, lumbar (ICD-10 - M48.06) The lumbar fusiontook place without side effects or incidents. He notices a substantial improvement in his back pain. The wound is well-healed. He reports much less pain with ambulation. 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 He has an upcoming appointment with a neurosurgeon at the end of this month. 05/05/2025 Carpal tunnel syndrome, right upper limb (ICD-10 - G56.01) He has seen the orthopedic surgeon and will undergo surgery for carpal tunnel syndrome on the right later this month. He is cleared for surgery at this time. 05/05/2025 History of bladder cancer (ICD-10 - Z85.51) There was no sign of cancer on his exam today. He recently had a cystoscopy, March 2024 which showed no gross recurrence. Surveillance will continue 05/05/2025 Coronary artery disease (ICD-10 - I25.10) He has had no recent palpitations, angina, syncope or nausea. He has been compliant with all of his medications. He saw his furniture painter this month who found him to be stable and gave him an appointment to return in one year. 05/05/2025 Stage 2 chronic kidney disease (ICD-10 - N18.2) His GFR has improved substantially since his last blood test. His urinary tract is currently asymptomatic.His glomerular filtration rate has fallen from 54 down to 46. I have encouraged him to stay hydrated. 05/05/2025 Former smoker (ICD-1 0 - Z87.891) He is highly motivated not to smoke and we discussed means of preserving abstinence in times of stress. 05/05/2025 Emphysema lung (ICD-10 - J43.9) He is no longer smoking. He is short of breath with sustained exertion but is comfortable breathing room air at rest. Plan Of Treatment Medication Medication Name Sig Start Date Stop Date Notes Atorvastatin Calcium 80 MG 1 tablet Orally Once a day 01/10 Aspirin Adult Low Dose 81 MG 1 tablet Orally Once a day Metoprolol Succinate ER SUC 50MG 1 tablet Orally Once a day Ezetimibe 10 MG 1 tablet Orally Once a day 01/20/2025 Naproxen 500 MG 1 tablet with food o r milk Orally every 12 hrs Amoxicillin 500 MG 4 capsules Orally on ce before dental surgery for 1 days 05/07/2025 05/13/2025 Lisinopril-hydroCHLOROthiazi de 10-12.5 MG 1 tablet Orally twice a day Eucerin Pending Test Test Name Order Date PROFILE, FASTING (COMPREHENSIVE METABOLI C) 05/05/2025 CBC w DIFF 05/05/2025 Lipid Panel 05/05/2025 Next Appt Details Follow Up: 3 Months, Reason: OV Provider Name:Trevon Colby , 10/29/2025 09:45:00 AM, [address] [place] [address] [address], [place], [phone], Provider Name:Trevon Colby , 05/06/2026 09:30:00 AM, [address] [place] [address] [place], [address], Progress Notes * Spencer PRICEDOB:[birth year] (79 yo M)Acc No.[id number]:05/05/2025 Progress Notes Patient: Spencer PATEL Provider: Eduar Colby MD :[id number] A ge:79 Y S ex:Male Date:05/05/2025 Address:[address], [place]-[id number] Subjective: * Chief Complaints: * A nnual Exam * HPI: D epression Screening: He returns for medical management. Is going to see his vascular surgeon tomorrow To further evaluate his claudication.He can only walk 50 yards before he has to stop and rest. The CT scan of April 17, 2025 showed severe arteriosclerotic disease in both legs. There are no open areas or wounds on either.Comprehensive blood work from April 29, 2025 was reviewed with him. He continues to rise from sleep once or twice a night to urinate. Lumbar spine continues to be painful he continues to try to lose weight and consume a healthy low animal fat diet. His bladder cancer remains in remission he denies any recent angina. He has had no further epistaxis. He is short of breath moderate exertion exertion. PHQ-9 L ittle interest or pleasure in doing things?Not at all F eeling down, depressed, or hopeless N ot at all T rouble falling or staying asleep, or sleeping too much N ot at all F eeling tired or having little energy N ot at all P oor appetite or overeating N ot at all F eeling bad about yourself or that you are a failure, or have let yourself or your family down N ot at all T rouble concentrating on things, such as reading the newspaper or watching television N ot at all M oving or speaking so slowly that other people could have noticed; or the opposite, being so fidgety or restless that you have been moving around a lot more than usual N ot at all T houghts that you would be better off or of hurting yourself in some way N ot at all T otal Score 0 C OVID-19 Screening: Questions H ave you had any new onset fever, chills, cough, congestion, sore throat, shortness of breath, muscle aches? N o S AARON Questions: SDOH Questions I n the past year have you been worried about losing your housing? N o I n the past year have you or any family members you live with been unable to get any of the following when it was really needed? Check all that apply: N one F all Risk Screening: Fall History H ave you had any falls with injury in the past year? N o H ave you had two or more falls in the past year? N o F all Risk Assessment: N o falls in the past year * ROS: G eneral/Constitutional: pain B ilateral claudication,Low back pain. C hills?denies. F atigue a dmits. F ever d enies. E NT: Decreased hearing m ild. R espiratory: Cough d enies. C ardiovascular: Chest pain with exertion d enies. D yspnea on exertion?with moderate activity. S hortness of breath t hat is moderate. G astrointestinal: Constipation o ccasional. D ecreased [...] hat is chronic. P sychiatric: Depressed mood d enies. * [...] Bear 1Lumbar L3-5 Laminectomy, partial facetectomy, foraminotomy, [facility], Dr Baltazar 3Angioplasty right peroneal and popliteal artery 1Right popliteal and peroneal artery atherectomy and angioplasty 12/2017Left femoral endarterectomy, right superficial Femoral artery atherectomy and angioplasty [id number] [place] [facility] [place] * Hospitalization/Major Diagno stic Procedure: B ack surgery on september 1709/2024 * Family History: F ather: , diagnosed with Cancer. M other: , diagnosed with Cancer. S iblings: alive. 2 brother(s) , 1 sister(s) - healthy. . There is no family history of genitourinary cancer. He is not aware of any family history of mental illness or substance use disorder or addiction. * Social History: T obacco Use: T obacco Control (Standard) T obacco use: F ormer smoker H ow long has it been since you last smoked??Greater than 10 years A dditional Findings: Tobacco non-user A ggressive nonsmoker D rugs/Alcohol: D rugs H ave you used drugs other than those for medical reasons in the past 12 months? N o D rug/Alcohol: A HOSSEIN-C (Standard) D id you have a drink containing alcohol in the past year? Y es H ow often did you have six or more drinks on one occasion in the past year? L ess than monthly (1 point) H ow many drinks did you have on a typical day when you were drinking in the past year? 1 or 2 drinks (0 point) H ow often did you have a drink containing alcohol in the past year? N ever (0 point) P oints 1 I nterpretation N egative * Medications: T akingEucerin Naproxen 500 MG Tablet 1 tablet with [...] List reviewed and reconciled with the patientTaking Michele Taking Naproxen 500 MG Tablet 1 tablet [...] nausea - Side EffectsBee Sting: hives - AllergyNo Known Food Allergyno[Allergies Verified] Objective: * Vitals: H t: 66, Wt:163, BMI:26.31, BP:107/64, HR:58, Temp:97.3, Ht-cm: 167.64, Wt-k.94. * P ast Orders: Lab:Prostate Specific Antige n * Collection Date 02/03/2025 07/24/2024 04/21/2024 Collection Time 07:59 AM 08:07 AM 07:58 AM Order Date 02/03/2025 07/24/2024 04/21/2024 Prostate Specific Antigen 2.83 (Ref Range: <0.05-4.0 ng/mL) 2.80 (Ref Range: <0.05-4.0 ng/mL) 3.57 (Ref Range: <0.05-4.0 ng/mL) * Lab:Lipid Panel * Collection Date 04/29/2025 02/03/2025 07/24/2024 Collection Time 08:55 AM 07:59 AM 08:07 AM 07:58 AM Order Date 04/29/2025 02/03/2025 07/24/2024 04/21/2024 Triglycerides 46 (Ref Range: <150 mg/dL) 56 (Ref Range: <150 mg/dL) 60 (Ref Range: <150 mg/dL) 61 (Ref Range: <150 mg/dL) Cholesterol 104 (Ref Range: <200 mg/dL) 122 (Ref Range: <200 mg/dL) 120 (Ref Range: <200 mg/dL) 123 (Ref Range: <200 mg/dL) LDL Cholesterol Calculated 46 (Ref Range: <100 mg/dL) 57 (Ref Range: <100 mg/dL) 58 (Ref Range: <100 mg/dL) 60 (Ref Range: <100 mg/dL) HDL Cholesterol 49 (Ref Range: >40 mg/dL) 54 (Ref Range: >40 mg/dL) 50 (Ref Range: >40 mg/dL) 51 (Ref Range: >40 mg/dL) * Lab:Abelardo Basilio. Ngoc l Fast * Collection Date 04/29/2025 02/03/2025 07/24/2024 Collection Time 08:55 AM 07:59 AM 08:07 AM 07:58 AM Order Date 04/29/2025 02/03/2025 07/24/2024 04/21/2024 Sodium 140 (Ref Range: 135-145 mmol/L) 137 (Ref Range: 135-145 mmol/L) 137 (Ref Range: 135-145 mmol/L) 137 (Ref Range: 135-145 mmol/L) Bilirubin Total 0.7 (Ref Range: 0.0-1.0 mg/dL) 0.5 (Ref Range: 0.0-1.0 mg/dL) 0.7 (Ref Range: 0.0-1.0 mg/dL) 0.4 (Ref Range: 0.0-1.0 mg/dL) Aspartate Amino Transferase 28 (Ref Range: 5-37 U/L) 30 (Ref Range: 5-37 U/L) 22 (Ref Range: 5-37 U/L) 21 (Ref Range: 5-37 U/L) Alanine Aminotransferase 16 (Ref Range: 0-40 U/L) 16 (Ref Range: 0-40 U/L) 13 (Ref Range: 0-40 U/L) 18 (Ref Range: 0-40 U/L) Total Protein 6.5 (Ref Range: 6.5-8.0 g/dL) 6.7 (Ref Range: 6.5-8.0 g/dL) 6.8 (Ref Range: 6.5-8.0 g/dL) 7.0 (Ref Range: 6.5-8.0 g/dL) Albumin Level 3.9 (Ref Range: 3.5-5.0 g/dL) 3.7 (Ref Range: 3.5-5.0 g/dL) 3.8 (Ref Range: 3.5-5.0 g/dL) 3.9 (Ref Range: 3.5-5.0 g/dL) Alkaline Phosphatase 93 (Ref Range: 39-117 U/L) 107 (Ref Range: 39-117 U/L) 92 (Ref Range: 39-117 U/L) 96 (Ref Range: 39-117 U/L) Potassium 5.1 (Ref Range: 3.3-5.1 mmol/L) 4.6 (Ref Range: 3.3-5.1 mmol/L) 4.8 (Ref Range: 3.3-5.1 mmol/L) 4.3 (Ref Range: 3.3-5.1 mmol/L) Chloride 111 H (Ref Range: 96-108 mmol/L) 106 (Ref Range: 96-108 mmol/L) 106 (Ref Range: 96-108 mmol/L) 104 (Ref Range: 96-108 mmol/L) Carbon Dioxide 26 (Ref Range: 22-29 mmol/L) 26 (Ref Range: 22-29 mmol/L) 26 (Ref Range: 22-29 mmol/L) 29 (Ref Range: 22-29 mmol/L) Anion Gap 8 L (Ref Range: 12-20) 10 L (Ref Range: 12-20) 10 L (Ref Range: 12-20) 8 L (Ref Range: 12-20) Blood Urea Nitrogen 31 H (Ref Range: 9-16 mg/dL) 29 H (Ref Range: 9-16 mg/dL) 32 H (Ref Range: 9-16 mg/dL) 35 H (Ref Range: 9-16 mg/dL) Creatinine 1.47 H (Ref Range: 0.5-1.4 mg/dL) 1.28 (Ref Range: 0.5-1.4 mg/dL) 1.48 H (Ref Range: 0.5-1.4 mg/dL) 1.45 H (Ref Range: 0.5-1.4 mg/dL) Estimated Glomerular Filt Rate 46 54 46 47 Glucose Fasting 91 (Ref Range: 60-99 mg/dL) 87 (Ref Range: 60-99 mg/dL) 94 (Ref Range: 60-99 mg/dL) 92 (Ref Range: 60-99 mg/dL) Calcium 9.5 (Ref Range: 8.4-10.2 mg/dL) 9.6 (Ref Range: 8.4-10.2 mg/dL) 9.8 (Ref Range: 8.4-10.2 mg/dL) 10.0 (Ref Range: 8.4-10.2 mg/dL) * Lab:Complete Blood Count Aut o Diff * Collection Date 04/29/2025 02/03/2025 09/18/2024 Collection Time 08:55 AM 07:59 AM 09:09 AM 08:07 AM Order Date 04/29/2025 02/03/2025 09/18/2024 07/24/2024 White Blood Count 4.7 L (Ref Range: 4.8-10.8 X10*3/uL) 5.0 (Ref Range: 4.8-10.8 X10*3/uL) 11.7 H (Ref Range: 4.8-10.8 X10*3/uL) 5.0 (Ref Range: 4.8-10.8 X10*3/uL) Red Blood Count 3.68 L (Ref Range: 4.60-5.80 X10*6/uL) 3.97 L (Ref Range: 4.60-5.80 X10*6/uL) 2.89 L (Ref Range: 4.60-5.80 X10*6/uL) 3.68 L (Ref Range: 4.60-5.80 X10*6/uL) Hemoglobin 12.2 L (Ref Range: 14.0-18.0 g/dl) 12.6 L (Ref Range: 14.0-18.0 g/dl) 9.9 L (Ref Range: 14.0-18.0 g/dl) 12.5 L (Ref Range: 14.0-18.0 g/dl) Hematocrit 36.7 L (Ref Range: 42.0-52.0 %) 38.4 L (Ref Range: 42.0-52.0 %) 29.0 L (Ref Range: 42.0-52.0 %) 37.0 L (Ref Range: 42.0-52.0 %) Mean Corpuscular Volume 99.7 H (Ref Range: 80.0-98.0 fL) 96.7 (Ref Range: 80.0-98.0 fL) 100.3 H (Ref Range: 80.0-98.0 fL) 100.5 H (Ref Range: 80.0-98.0 fL) Mean Corpuscular Hemoglobin 33.2 H (Ref Range: 27.0-33.0 pg) 31.7 (Ref Range: 27.0-33.0 pg) 34.3 H (Ref Range: 27.0-33.0 pg) 34.0 H (Ref Range: 27.0-33.0 pg) Mean Corpuscular HGB Conc 33.2 (Ref Range: 31.0-36.0 g/dl) 32.8 (Ref Range: 31.0-36.0 g/dl) 34.1 (Ref Range: 31.0-36.0 g/dl) 33.8 (Ref Range: 31.0-36.0 g/dl) Red Cell Distribution Width 12.9 (Ref Range: 11.0-16.0 %) 13.3 (Ref Range: 11.0-16.0 %) 12.7 (Ref Range: 11.0-16.0 %) 13.3 (Ref Range: 11.0-16.0 %) Platelet Count 231 (Ref Range: 160-400 X10*3/uL) 267 (Ref Range: 160-400 X10*3/uL) 196 (Ref Range: 160-400 X10*3/uL) 266 (Ref Range: 160-400 X10*3/uL) Mean Platelet Volume 9.6 (Ref Range: 9.4-12.4 fL) 9.4 (Ref Range: 9.4-12.4 fL) 9.4 (Ref Range: 9.4-12.4 fL) 9.7 (Ref Range: 9.4-12.4 fL) Neutrophils Percent Auto 54.1 (Ref Range: 45-73 %) 54.5 (Ref Range: 45-73 %) 79.4 H (Ref Range: 45-73 %) 48.1 (Ref Range: 45-73 %) Imm Gran Pct Auto 0.2 (Ref Range: 0.0-0.4 %) 0.2 (Ref Range: 0.0-0.4 %) 0.6 H (Ref Range: 0.0-0.4 %) 0.4 (Ref Range: 0.0-0.4 %) Lymphocytes Percent Auto 25.5 (Ref Range: 20-40 %) 28.3 (Ref Range: 20-40 %) 8.3 L (Ref Range: 20-40 %) 28.7 (Ref Range: 20-40 %) Monocytes Percent Auto 12.3 H (Ref Range: 2-11 %) 11.0 (Ref Range: 2-11 %) 11.4 H (Ref Range: 2-11 %) 12.5 H (Ref Range: 2-11 %) Eosinophils Percent Auto 6.6 H (Ref Range: 0-4 %) 4.8 H (Ref Range: 0-4 %) 0.1 (Ref Range: 0-4 %) 9.1 H (Ref Range: 0-4 %) Basophils Percent Auto 1.3 (Ref Range: 0-2 %) 1.2 (Ref Range: 0-2 %) 0.2 (Ref Range: 0-2 %) 1.2 (Ref Range: 0-2 %) NRBC Pct Auto 0.0 (Ref Range: 0.0-0.2 /100WBC) 0.0 (Ref Range: 0.0-0.2 /100WBC) 0.0 (Ref Range: 0.0-0.2 /100WBC) 0.0 (Ref Range: 0.0-0.2 /100WBC) Neutrophils Absolute Auto 2.6 (Ref Range: 2.0-8.3 x10*3/uL) 2.7 (Ref Range: 2.0-8.3 x10*3/uL) 9.3 H (Ref Range: 2.0-8.3 x10*3/uL) 2.4 (Ref Range: 2.0-8.3 x10*3/uL) Imm Gran Abs Auto 0.01 (Ref Range: 0.00-0.03 X10*3/uL) 0.01 (Ref Range: 0.00-0.03 X10*3/uL) 0.07 H (Ref Range: 0.00-0.03 X10*3/uL) 0.02 (Ref Range: 0.00-0.03 X10*3/uL) Lymphocytes Absolute Auto 1.2 (Ref Range: 1.2-4.9 X10*3/uL) 1.4 (Ref Range: 1.2-4.9 X10*3/uL) 1.0 L (Ref Range: 1.2-4.9 X10*3/uL) 1.4 (Ref Range: 1.2-4.9 X10*3/uL) Monocytes Absolute Auto 0.6 (Ref Range: 0.1-1.2 X10*3/uL) 0.6 (Ref Range: 0.1-1.2 X10*3/uL) 1.3 H (Ref Range: 0.1-1.2 X10*3/uL) 0.6 (Ref Range: 0.1-1.2 X10*3/uL) Eosinophils Absolute Auto 0.3 (Ref Range: 0.0-0.4 X10*3/uL) 0.2 (Ref Range: 0.0-0.4 X10*3/uL) 0.0 (Ref Range: 0.0-0.4 X10*3/uL) 0.5 H (Ref Range: 0.0-0.4 X10*3/uL) Basophils Absolute Auto 0.1 (Ref Range: 0.0-0.2 X10*3/uL) 0.1 (Ref Range: 0.0-0.2 X10*3/uL) 0.0 (Ref Range: 0.0-0.2 X10*3/uL) 0.1 (Ref Range: 0.0-0.2 X10*3/uL) NRBC Abs Auto 0.000 (Ref Range: 0.0-0.012 X10*3/uL) 0.000 (Ref Range: 0.0-0.012 X10*3/uL) 0.000 (Ref Range: 0.0-0.012 X10*3/uL) 0.000 (Ref Range: 0.0-0.012 X10*3/uL) * Lab:URINE DIP STICK * Collection Date 05/05/2025 05/01/2024 10/30/2022 Order Date 05/05/2025 05/01/2024 10/30/2022 Result: Normal SG 1.020 (Ref Range: 1.005 - 1.025) 1.020 (Ref Range: 1.005 - 1.025) 1.020 pH 5.0 (Ref Range: 5.0 - 9.0) 5.0 (Ref Range: 5.0 - 9.0) 5 CLAIRE Negative (Ref Range: Negative -) Negative (Ref Range: Negative -) neg NIT Negative (Ref Range: Negative -) Negative (Ref Range: Negative -) neg PRO 15 (Ref Range: Negative - Trace) 15 (Ref Range: Negative - Trace) trace GLU Negative (Ref Range: Negative -) Negative (Ref Range: Negative -) normal KET Negative (Ref Range: Negative -) Negative (Ref Range: Negative -) neg UBG 0.2 (Ref Range: 0.1 - 1.8) 0.2 (Ref Range: 0.1 - 1.8) neg THO Negative (Ref Range: 0.2 - 1.3) Negative (Ref Range: 0.2 - 1.3) neg BLD Negative (Ref Range: Negative -) Negative (Ref Range: Negative -) neg Menstrating NR NR n/a * Lab:Creatinine * Collection Date 05/06/2025 03/19/2025 04/04/2023 Collection Time 06:34 AM 08:11 AM 06:26 AM Order Date 05/06/2025 03/19/2025 04/04/2023 Creatinine 1.66 H (Ref Range: 0.5-1.4 mg/dL) 1.50 H (Ref Range: 0.5-1.4 mg/dL) 1.46 H (Ref Range: 0.5-1.4 mg/dL) Creatinine Clr Calc Pharmacy 32.9 NR 39.6 Estimated Glomerular Filt Rate 40 45 47 * Lab:Blood Urea Nitrogen * Collection Date 05/06/2025 03/19/2025 04/04/2023 Collection Time 06:34 AM 08:11 AM 06:26 AM Order Date 05/06/2025 03/19/2025 04/04/2023 Blood Urea Nitrogen 46 H (Ref Range: 9-16 mg/dL) 32 H (Ref Range: 9-16 mg/dL) 30 H (Ref Range: 9-16 mg/dL) ???Imaging:CT angio abd aorta runoff (Order Date - 04/17/2025) (Performed Date - 04/17/2025) * Examination: G eneral Examination: GENERAL APPEARANCE: [...] clubbing, cyanosis or edema. PERIPHERAL PULSES: D iminished. NEUROLOGIC: a lert and oriented, cranial nerves 2-12 grossly intact, deep tendon reflexes 2+ symmetrical, motor strength normal upper and lower extremities, sensory exam intact. PSYCH: a lert, oriented. Assessment: * Assessment: 1. P eripheral vascular disease - I73.9 (Primary) N otes :He has significant bilateral arterial [...] 2024 and was thought to be stable. 2 . H yperlipidemia - E78.5 N otes :His total cholesterol level is 104. His lipids are in near target range. No change in his medications was made. His lipids were reviewed. He will have fasting lipid profile in the near future. 3 . O verweight - E66.3 N otes :His body mass index is 26. He has lost another 8 pounds. He reports he has no appetite. Because of his weight loss is unclear. He has a number of active medical problems which may be the cause. His bladder cancer is thought to be in remission. All of his medical problems are being reevaluated. I have counseled him about a healthy weight maintenance diet low in cholesterol. 4 . O steoarthritis of right hip - M16.11 N otes :. He describes a hip pain as mild today. 5 . S sandra stenosis, lumbar - M48.06 N otes :The lumbar fusiontook place without side effects or incidents. He notices a substantial improvement in his back pain. The wound is well-healed. He reports much less pain with ambulation. 6 . 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 He has an upcoming appointment with a neurosurgeon at the end of this month. 7 . C arpal tunnel syndrome, right upper limb - G56.01 N otes :He has seen the orthopedic surgeon and will undergo surgery for carpal tunnel syndrome on the right later this month. He is cleared for surgery at this time. 8 . H istory of bladder cancer - Z85.51 N otes :There was no sign of cancer on his exam today. He recently had a cystoscopy, March 2024 which showed no gross recurrence. Surveillance will continue 9 . C oronary artery disease - I25.10 N otes :He has had no recent palpitations, angina, syncope or nausea. He has been compliant with all of his medications. He saw his furniture painter this month who found him to be stable and gave him an appointment to return in one year. 1 0. S tage 2 chronic kidney disease - N18.2 N otes :His GFR has improved substantially since his last blood test. His urinary tract is currently asymptomatic.His glomerular filtration rate has fallen from 54 down to 46. I have e ncouraged him to stay hydrated. 1 1. F ormer smoker - Z87.891 N otes :He is highly motivated not to smoke and we discussed means of preserving abstinence in times of stress. 1 2. E mphysema lung - J43.9 N otes :He is no longer smoking. He is short of breath with sustained exertion but is comfortable breathing room air at rest. Plan: * Treatment: 2. H yperlipidemia Continue Naproxen Tablet, 500 MG, 1 tablet with food or milk, Orally, every 12 hrs; C ontinue Metoprolol Succinate ER Tablet Extended Release 24 Hour, SUC 50MG, 1 tablet, Orally, Once a day; C ontinue Ezetimibe Tablet, 10 MG, 1 tablet, Orally, Once a day; C ontinue Atorvastatin Calcium Tablet, 80 MG, 1 tablet, Orally, Once a day; C ontinue Aspirin Adult Low Dose Tablet Delayed Release, 81 MG, 1 tablet, Orally, Once a day; C ontinue Lisinopril-hydroCHLOROthiazide Tablet, 10-12.5 MG, 1 tablet, Orally, twice a day; C ontinue Eucerin. L AB: PROFILE, FASTING (COMPREHENSIVE METABOLIC) L AB: CBC w DIFF L AB: Lipid Panel 3. O verweight L AB: PROFILE, FASTING (COMPREHENSIVE METABOLIC) L AB: CBC w DIFF L AB: Lipid Panel * Labs: * L ab: URINE DIP STICK (Collection Date & Time - 05/05/2025) Value Reference Range S G 1.020 1.005 - 1.025 * p H 5.0 5.0 - 9.0 * L EU Negative Negative - * N IT Negative Negative - * P RO 15 Negative - Trace * G NAVI Negative Negative - * K ET Negative Negative - * U BG 0.2 0.1 - 1.8 * B IL Negative 0.2 - 1.3 * B LD Negative Negative - * Procedure Codes: 8 1002 URINE-NO MICRO * Preventive Medicine: Counseling: C are goal follow-up plan: Counseling for abnormal BMI given Y es Above Normal BMI Follow-up D ietary management education, guidance, and counseling, Dietary needs education S moking/Tobacco Use Patient counseled on the dangers of tobacco use and urged to quit. 0 05/05/2025 * Follow Up: 3 Months (Reason: OV) * Images: * Sign off status: Completed true * Provider: Eduar Colby MD Date: 0 05/05/2025 Generated for Allison jimenez/Bhavin/Demetriaitting on: 1 11/17/2024 09:49 AM EST History [...] way: Not at all Total Score: 0 Fall Risk Screening Fall History Have you had any falls with injury in the past year?: No Have you had two or more falls in the year?: No Fall Risk Assessment:: No falls in the year COVID-19 Screening Questions Have you had any new onset fever, chills, cough, congestion, sore throat, shortness of breath, muscle aches?: No SDOH Questions SDOH Questions In the [...] suspicious lesion s, anicteric PERIPHERAL PULSES: Diminished BREASTS: no masses palpable b ilaterally MUSCULOSKELETAL: extremities unremark able, no clubbing, cyanosis or edema LYMPH NODES: no enlarged lymph no nacho,spleen normal RECTAL EXAM: not examined PSYCH: alert, oriented ORAL CAVITY: normal, unremarkable
--- OUTSIDE RECORDS SUMMARY | 2025-05-07 05:27 | XMS_ITS ---
Author Organization Trevon Colby III, MD Address [address] [place] [place] [address] [place] [address] Care Team Providers Care Learning Consultant Name Role Phone Dr. Trevon Colby III Primary Care Provider REASON FOR VISIT ? Rx Social History Sex Assigned At : Social History Observation Description Sex Assigned At Male Encounters Encounter Location Date Provider Diagnosis Trevon Colby III, MD [address] [place] [place] [address] [place] [address] 05/07/2025 Trevon Colby Plan Of Treatment Next Appt Details Provider Name:Trevon Colby , 10/29/2025 09:45:00 AM, [address] [place] [place] [address] [place], [address], Provider Name:Trevno Colby , 05/06/2026 09:30:00 AM, [address] [place] [place] [address] JORGE ALBERTO DANIELSON [facility] [place], [address], Progress Notes * Spencer PRICEDOB:[birth year] (79 yo M)Acc No.[id number]:05/07/2025 Patient: Spencer PATEL :1945 A ge:79 Y S ex:Male Address:[address] [place], [address] * true * Date: Generated for Printi ng/Faxing/eTransmitting on: 1 11/17/2024 09:49 AM EST
--- OUTSIDE RECORDS SUMMARY | 2025-08-06 04:45 | XMS_ITS ---
Author Organization Trevon Colby III, MD Address [address] [place] [address] [place] [address] Care Team Providers Care Trade Promotion Analyst Name Role Phone Dr. Trevon Colby III Primary Care Provider Allergies Allergen (clinical drug ingredient) Drug/Non Drug Allergy documented on EMR Reaction Allergy Type Onset Date Status No Known Food Allergy Unknown Drug Allergy Active acetaminophen / oxycodone Percocet nausea Drug Allergy Active Bee Sting hives Allergy Active REASON FOR VISIT Peripherral arterial disease, Hyperlipidemia, Spinal stenosis, lumbbar, Benign prostatic hypertrophy, Coronary artery disease, Chronic kidney disease, Emphysema Medications Medication SIG (Take, Route, Frequency, [...] 1 tablet Orally Once a day Active Eucerin Active Lisinopril-hydroCHLOROthiaz racheal 10-12.5 MG 1 tablet Orally twice a day Active Social History Tobacco Use: [...] years Additional Findings: Tobacco non-user Aggressive nonsmoker Vital Signs Temperature 97.3 degrees Fahrenheit 08/06/20 Blood pressure systolic 129 mm Hg 08/06/20 Blood pressure diastolic 64 mm Hg 025 Heart Rate 57 /min 08/06/2025 Height 66 in 08/06/2025 Weight 169 lbs 08/06/2025 BMI 27.27 kg/m2 08/06/2025 Encounters Encounter Location Date Provider Diagnosis Trevon Colby III, MD [address] [place] [address] [place] [address] 08/06/2025 Trevon Colby Hyperlipidemia E78.5 ; Coronary artery disease I25.10 ; Stage 2 chronic kidney disease N18.2 ; Osteoarthritis of right hip M16.11 ; Overweight E66.3 ; Spinal stenosis, lumbar M48.06 ; BPH (benign prostatic hyperplasia) N40.0 ; History of bladder cancer Z85.51 ; Emphysema lung J43.9 and Peripheral vascular disease I73.9 Assessments Encounter Date Diagnosis (ICD Code) Assessment Notes Treat ment Notes Treatment Clinical Notes 08/06/2025 Hyperlipidemia (ICD-10 - E78.5) His total cholesterol level is low. His lipids are in near target range. No change in his medications was made. His lipids were reviewed. He will have fasting lipid profile in the near future. 08/06/2025 Coronary artery disease (ICD-10 - I25.10) His angina is stable. He reports none recently. He was compliant with all of his medications since his last visit. No change in his regimen was needed. 08/06/2025 Stage 2 chronic kidney disease (ICD-10 - N18.2) His renal function is stable and will be followed carefully. 08/06/2025 Osteoarthritis of right hip (ICD-10 - M16.11) . He describes a hip pain as mild today. 08/06/2025 Overweight (ICD-10 - E66.3) His body mass [...] healthy weight maintenance diet low in cholesterol. 08/06/2025 Spinal stenosis, lumbar (ICD-10 - M48.06) The lumbar fusiontook place without side effects or incidents. He notices a substantial improvement in his back pain. The wound is well-healed. He reports much less pain with ambulation. 08/06/2025 BPH (benign prostati c hyperplasia) (ICD-10 - N40.0) He arises from sleep once or twice a night to urinate. We have discussed lifestyle modifications he could make to reduce nocturia. 08/06/2025 History of bladder cancer (ICD-10 - Z85.51) There was no sign of cancer on his exam today. He recently had a cystoscopy, March 2024 which showed no gross recurrence. Surveillance will continue 08/06/2025 Emphysema lung (ICD-10 - J43.9) He is no longer smoking. He is short of breath with sustained exertion but is comfortable breathing room air at rest. 08/06/2025 Peripheral vascular disease (ICD-10 - I73.9) He [...] o r milk Orally every 12 hrs Metoprolol Succinate ER SUC 50MG 1 tablet Orally Once a da y Ezetimibe 10 MG 1 tablet Orally Once a day 01/20/2025 Atorvastatin Calcium 80 MG 1 tablet Orally Once a day 01/10 Aspirin Adult Low Dose 81 MG 1 tablet Orally Once a day Eucerin Lisinopril-hydroCHLOROthiazi de 10-12.5 MG 1 tablet Orally twice a day Pending Test Test Name Order Date PROFILE, FASTING (COMPREHENSIVE METABOLI C) 08/06/2025 CBC w DIFF 08/06/2025 Lipid Panel 08/06/2025 Next Appt Details Follow Up: 3 Months, Reason: ov review labs Provider Name:Trevon Colby , 10/29/2025 09:45:00 AM, [address] [place] [address] , [facility] [address], [place], [address], Provider Name:Trevon Szymanskine , 05/06/2026 09:30:00 AM, [address] [place] [address] [address]ELSON, [place], [address], Progress Notes * Sepncer PR[birth year]EDOB:[birth year] (80 yo M)Acc No.[id number]:08/06/2025 Progress Notes Patient: Spencer PATEL Provider: Eduar Colby MD :1945 A ge:80 Y S ex:Male Date:08/06/2025 Address:[address] [place] [address], [phone] Subjective: * Chief Complaints: * P eripherral arterial diseaseHyperlipidemiaSpinal stenosis, lumbbarBenign prostatic hypertrophyCoronary artery diseaseChronic kidney diseaseEmphysema * HPI: C -19 Screening: He returns to the office for scheduled medical management. Says that the claudication in his legs occurs at about 50 yards reliably. He has appointment next week with his vascular surgeon to have Doppler ultrasound of the legs and a consultation. He has no open areas on his legs. His feet were warm today. His back pain remains unchanged and is mild to moderate. He rises from sleep once or twice a night to urinate. He denies any recent angina palpitations or dyspnea on exertion. His renal function is stable. He is no longer smoking.? Emphysema results in shortness of breath with moderate activity. Questions H ave you had any new onset fever, chills, cough, congestion, sore throat, shortness of breath, muscle aches? N o * ROS: G eneral/Constitutional: pain p ain at 50 yards. C hills d enies. F atigue a [...] Bear 1Lumbar L3-5 Laminectomy, partial facetectomy, foraminotomy, [facility], Dr Baltazar 3Angioplasty right peroneal and popliteal artery 1Right popliteal and peroneal artery atherectomy and angioplasty 12/2017Left femoral endarterectomy, right superficial Femoral artery atherectomy and angioplasty [id number] fusion [facility] 09/18/2024 * Hospitalization/Major Diagno stic Procedure: B [...] dditional Findings: Tobacco non-user A ggressive nonsmoker * Medications: T akingNaproxen 500 MG Tablet [...] Tablet 1 tablet Orally twice a day Eucerin Medication List reviewed and reconciled with the [...] 1 tablet Orally twice a day Taking Eucerin Medication List reviewed and reconciled with the patient * Allergies: P ercocet: nausea - Side EffectsBee Sting: hives - AllergyNo Known Food Allergyno[Allergies Verified] Objective: * Vitals: H t: 66, Wt:169, BMI:27.27, BP:129/64, HR:57, Temp:97.3, Ht-cm: 167.64, Wt-k.66. * P ast Orders: Lab:Lipid Panel * Collection Date 07/28/2025 04/29/2025 02/03/2025 Collection Time 08:28 AM 08:55 AM 07:59 AM Order Date 07/28/2025 04/29/2025 02/03/2025 Triglycerides 48 (Ref Range: <150 mg/dL) 46 (Ref Range: <150 mg/dL) 56 (Ref Range: <150 mg/dL) Cholesterol 110 (Ref Range: <200 mg/dL) 104 (Ref Range: <200 mg/dL) 122 (Ref Range: <200 mg/dL) LDL Cholesterol Calculated 50 (Ref Range: <100 mg/dL) 46 (Ref Range: <100 mg/dL) 57 (Ref Range: <100 mg/dL) HDL Cholesterol 51 (Ref Range: >40 mg/dL) 49 (Ref Range: >40 mg/dL) 54 (Ref Range: >40 mg/dL) * Lab:Complete Blood Count Aut o Diff * Collection Date 07/28/2025 05/06/2025 04/29/2025 Collection Time 08:28 AM 06:34 AM 08:55 AM Order Date 07/28/2025 05/06/2025 04/29/2025 White Blood Count 4.8 (Ref Range: 4.8-10.8 X10*3/uL) 5.2 (Ref Range: 4.8-10.8 X10*3/uL) 4.7 L (Ref Range: 4.8-10.8 X10*3/uL) Red Blood Count 3.75 L (Ref Range: 4.60-5.80 X10*6/uL) 3.66 L (Ref Range: 4.60-5.80 X10*6/uL) 3.68 L (Ref Range: 4.60-5.80 X10*6/uL) Hemoglobin 12.4 L (Ref Range: 14.0-18.0 g/dl) 12.3 L (Ref Range: 14.0-18.0 g/dl) 12.2 L (Ref Range: 14.0-18.0 g/dl) Hematocrit 37.6 L (Ref Range: 42.0-52.0 %) 36.2 L (Ref Range: 42.0-52.0 %) 36.7 L (Ref Range: 42.0-52.0 %) Mean Corpuscular Volume 100.3 H (Ref Range: 80.0-98.0 fL) 98.9 H (Ref Range: 80.0-98.0 fL) 99.7 H (Ref Range: 80.0-98.0 fL) Mean Corpuscular Hemoglobin 33.1 H (Ref Range: 27.0-33.0 pg) 33.6 H (Ref Range: 27.0-33.0 pg) 33.2 H (Ref Range: 27.0-33.0 pg) Mean Corpuscular HGB Conc 33.0 (Ref Range: 31.0-36.0 g/dl) 34.0 (Ref Range: 31.0-36.0 g/dl) 33.2 (Ref Range: 31.0-36.0 g/dl) Red Cell Distribution Width 13.2 (Ref Range: 11.0-16.0 %) 13.0 (Ref Range: 11.0-16.0 %) 12.9 (Ref Range: 11.0-16.0 %) Platelet Count 258 (Ref Range: 160-400 X10*3/uL) 221 (Ref Range: 160-400 X10*3/uL) 231 (Ref Range: 160-400 X10*3/uL) Mean Platelet Volume 9.7 (Ref Range: 9.4-12.4 fL) 9.4 (Ref Range: 9.4-12.4 fL) 9.6 (Ref Range: 9.4-12.4 fL) Neutrophils Percent Auto 48.8 (Ref Range: 45-73 %) 54.4 (Ref Range: 45-73 %) 54.1 (Ref Range: 45-73 %) Imm Gran Pct Auto 0.4 (Ref Range: 0.0-0.4 %) 0.2 (Ref Range: 0.0-0.4 %) 0.2 (Ref Range: 0.0-0.4 %) Lymphocytes Percent Auto 31.3 (Ref Range: 20-40 %) 26.6 (Ref Range: 20-40 %) 25.5 (Ref Range: 20-40 %) Monocytes Percent Auto 12.7 H (Ref Range: 2-11 %) 11.4 H (Ref Range: 2-11 %) 12.3 H (Ref Range: 2-11 %) Eosinophils Percent Auto 6.0 H (Ref Range: 0-4 %) 6.4 H (Ref Range: 0-4 %) 6.6 H (Ref Range: 0-4 %) Basophils Percent Auto 0.8 (Ref Range: 0-2 %) 1.0 (Ref Range: 0-2 %) 1.3 (Ref Range: 0-2 %) NRBC Pct Auto 0.0 (Ref Range: 0.0-0.2 /100WBC) 0.0 (Ref Range: 0.0-0.2 /100WBC) 0.0 (Ref Range: 0.0-0.2 /100WBC) Neutrophils Absolute Auto 2.4 (Ref Range: 2.0-8.3 x10*3/uL) 2.8 (Ref Range: 2.0-8.3 x10*3/uL) 2.6 (Ref Range: 2.0-8.3 x10*3/uL) Imm Gran Abs Auto 0.02 (Ref Range: 0.00-0.03 X10*3/uL) 0.01 (Ref Range: 0.00-0.03 X10*3/uL) 0.01 (Ref Range: 0.00-0.03 X10*3/uL) Lymphocytes Absolute Auto 1.5 (Ref Range: 1.2-4.9 X10*3/uL) 1.4 (Ref Range: 1.2-4.9 X10*3/uL) 1.2 (Ref Range: 1.2-4.9 X10*3/uL) Monocytes Absolute Auto 0.6 (Ref Range: 0.1-1.2 X10*3/uL) 0.6 (Ref Range: 0.1-1.2 X10*3/uL) 0.6 (Ref Range: 0.1-1.2 X10*3/uL) Eosinophils Absolute Auto 0.3 (Ref Range: 0.0-0.4 X10*3/uL) 0.3 (Ref Range: 0.0-0.4 X10*3/uL) 0.3 (Ref Range: 0.0-0.4 X10*3/uL) Basophils Absolute Auto 0.0 (Ref Range: 0.0-0.2 X10*3/uL) 0.1 (Ref Range: 0.0-0.2 X10*3/uL) 0.1 (Ref Range: 0.0-0.2 X10*3/uL) NRBC Abs Auto 0.000 (Ref Range: 0.0-0.012 X10*3/uL) 0.000 (Ref Range: 0.0-0.012 X10*3/uL) 0.000 (Ref Range: 0.0-0.012 X10*3/uL) * Lab:[facility] * Collection Date 07/28/2025 04/29/2025 02/03/2025 Collection Time 08:28 AM 08:55 AM 07:59 AM Order Date 07/28/2025 04/29/2025 02/03/2025 Sodium 140 (Ref Range: 135-145 mmol/L) 140 (Ref Range: 135-145 mmol/L) 137 (Ref Range: 135-145 mmol/L) Bilirubin Total 1.1 H (Ref Range: 0.0-1.0 mg/dL) 0.7 (Ref Range: 0.0-1.0 mg/dL) 0.5 (Ref Range: 0.0-1.0 mg/dL) Aspartate Amino Transferase 33 (Ref Range: 5-37 U/L) 28 (Ref Range: 5-37 U/L) 30 (Ref Range: 5-37 U/L) Alanine Aminotransferase 16 (Ref Range: 0-40 U/L) 16 (Ref Range: 0-40 U/L) 16 (Ref Range: 0-40 U/L) Total Protein 6.7 (Ref Range: 6.5-8.0 g/dL) 6.5 (Ref Range: 6.5-8.0 g/dL) 6.7 (Ref Range: 6.5-8.0 g/dL) Albumin Level 4.1 (Ref Range: 3.5-5.0 g/dL) 3.9 (Ref Range: 3.5-5.0 g/dL) 3.7 (Ref Range: 3.5-5.0 g/dL) Alkaline Phosphatase 89 (Ref Range: 39-117 U/L) 93 (Ref Range: 39-117 U/L) 107 (Ref Range: 39-117 U/L) Potassium 4.6 (Ref Range: 3.3-5.1 mmol/L) 5.1 (Ref Range: 3.3-5.1 mmol/L) 4.6 (Ref Range: 3.3-5.1 mmol/L) Chloride 106 (Ref Range: 96-108 mmol/L) 111 H (Ref Range: 96-108 mmol/L) 106 (Ref Range: 96-108 mmol/L) Carbon Dioxide 28 (Ref Range: 22-29 mmol/L) 26 (Ref Range: 22-29 mmol/L) 26 (Ref Range: 22-29 mmol/L) Anion Gap 11 L (Ref Range: 12-20) 8 L (Ref Range: 12-20) 10 L (Ref Range: 12-20) Blood Urea Nitrogen 32 H (Ref Range: 9-16 mg/dL) 31 H (Ref Range: 9-16 mg/dL) 29 H (Ref Range: 9-16 mg/dL) Creatinine 1.44 H (Ref Range: 0.5-1.4 mg/dL) 1.47 H (Ref Range: 0.5-1.4 mg/dL) 1.28 (Ref Range: 0.5-1.4 mg/dL) Estimated Glomerular Filt Rate 47 46 54 Glucose Fasting 90 (Ref Range: 60-99 mg/dL) 91 (Ref Range: 60-99 mg/dL) 87 (Ref Range: 60-99 mg/dL) Calcium 9.7 (Ref Range: 8.4-10.2 mg/dL) 9.5 (Ref Range: 8.4-10.2 mg/dL) 9.6 (Ref Range: 8.4-10.2 mg/dL) * Lab:Creatinine * Collection Date 05/06/2025 03/19/2025 [...] mg/dL) 30 H (Ref Range: 9-16 mg/dL) * Examination: G eneral Examination: GENERAL APPEARANCE: p leasant, well nourished, well developed, in no acute distress, calm and relaxed: elderly man. HEAD: a traumatic, normocephalic. EYES: [...] normal, no s3, or vascular bruits. LUNGS: : diminished breath sounds throughout: no wheezes, rales, rhonchi. BREASTS: no masses palpable bilaterally. ABDOMEN: b owel sounds normal, no ascites, no organomegaly, no mass. RECTAL EXAM: n ot examined. MUSCULOSKELETAL: e xtremities unremarkable, no clubbing, cyanosis or edema, Feet pink but cool with diminished pulses. PERIPHERAL PULSES: D iminished. NEUROLOGIC: a lert and oriented, cranial nerves 2-12 grossly intact, deep tendon reflexes 2+ symmetrical, motor strength normal upper and lower extremities, sensory exam intact. PSYCH: a lert, oriented. Assessment: * Assessment: 1. C oronary artery disease - I25.10 (Primary) N otes :His angina is stable. He reports none recently. He was compliant with all of his medications since his last visit. No change in his regimen was needed. 2 . H yperlipidemia - E78.5 N otes :His total cholesterol level is low. His lipids are in near target range. No change in his medications was made. His lipids were reviewed. He will have fasting lipid profile in the near future. 3 . S tage 2 chronic kidney disease - N18.2 N otes :His renal function is stable and will be followed carefully. 4 . O steoarthritis of right hip [...] healthy weight maintenance diet low in cholesterol. 6 . S sandra stenosis, lumbar - [...] could make to reduce nocturia. 8 . H istory of bladder cancer - Z85.51 N otes :There was no sign of cancer on his exam today. He recently had a cystoscopy, March 2024 which showed no gross recurrence. Surveillance will continue 9 . E mphysema lung - J43.9 N otes :He is no longer smoking. He is short of breath with sustained exertion but is comfortable breathing room air at rest. 1 0. P eripheral vascular disease - I73.9 N [...] to be stable. Plan: * Treatment: 2. H yperlipidemia Continue [...] w DIFF L AB: Lipid Panel 3. S tage 2 chronic kidney disease L AB: PROFILE, FASTING (COMPREHENSIVE METABOLIC) L AB: CBC w DIFF L AB: Lipid Panel * Procedure Codes: * Preventive Medicine: Counseling: C are goal follow-up plan: Counseling for abnormal BMI given Y es Above Normal BMI Follow-up D ietary management education, guidance, and counseling S moking/Tobacco Use Patient counseled on the dangers of tobacco use and urged to quit. 0 08/06/2025 * Follow Up: 3 Months (Reason: ov review labs) * Images: * Sign off status: Completed true * Provider: Eduar Colby MD Date: 0 08/06/2025 Generated for Printi ng/Faradhamesg/eTransmitting on: 1 11/17/2024 09:49 AM EST History and Physical Notes * HPI (History of Present Illness) Category Sub-Category Detail Notes COVID-19 Screening Questions Have you had any new onset fever, chills, cough, congestion, sore throat, shortness of breath, muscle aches?: No Examination Category Sub-Category Detail Notes General Examination GENERAL APPEARANCE: pleasant , well nourished, well developed, in no acute distress, calm and relaxed: elderly man HEAD: atraumatic, normocep halic EYES: eomi, perrla, anicte vinay, conjugate EARS: normal NOSE: septum intact NECK/THYROID: no jugular venous di stention, no carotid bruit, thyroid normal HEART: no clicks, gallops, murmurs, or rubs, regular rhythm, S1, S2 normal, no s3, or vascular bruits LUNGS: : diminished breath sounds throughout: no wheezes, rales, rhonchi ABDOMEN: bowel sounds normal, no ascites, no organomegaly, no mass NEUROLOGIC: alert and oriented, cranial nerves 2-12 grossly intact, deep tendon reflexes 2+ symmetrical, motor strength normal upper and lower extremities, sensory exam intact SKIN: no suspicious lesion s, anicteric PERIPHERAL PULSES: Diminished BREASTS: no masses palpable b ilaterally MUSCULOSKELETAL: extremities unremark able, no clubbing, cyanosis or edema, Feet pink but cool with diminished pulses LYMPH NODES: no enlarged lymph no nacho,spleen normal RECTAL EXAM: not examined PSYCH: alert, oriented ORAL CAVITY: normal, unremarkable
--- OUTSIDE RECORDS SUMMARY | 2025-09-11 05:30 | XMS_ITS ---
Author Organization Trevon Colby III, MD Address [address] [place] [address] [place] [address] Care Team Providers Care Making Machine Catcher Name Role Phone Dr. Trevon Colby III Primary Care Provider REASON FOR VISIT Clearance Form Social History Sex Assigned At : Social History Observation Description Sex Assigned At Male Encounters Encounter Location Date Provider Diagnosis Trevon Colby III, MD [address] [place] [address] [place] [address] 09/11/2025 Trevon Colby Plan Of Treatment Next Appt Details Provider Name:Trevon Colby , 10/29/2025 09:45:00 AM, [address] [place] [address] [place], [address], Provider Name:Trevon Colby , 05/06/2026 09:30:00 AM, [address] [place] [address] [address] [place] [place], [address], Progress Notes * Spencer PR[birth year]EDOB:[birth year] (80 yo M)Acc No.[id number]:09/11/2025 Patient: Spencer PATEL :1945 A ge:80 Y S ex:Male Address:[address] [place], [address] * * Date:
[2025-09-17 09:17] VITALS: BMI 28.6
--- NOTE | 2025-09-17 09:17 | MHC.OFFVIS ---
Vital Signs 09/17/25 09:17 Height 5 ft 5 in Weight 172 lb BMI 28.6 Intake Visit Reasons: 3m follow up Arterial US 08/11/25 Intake Note: 3 mo arterial US follow up 08/11/25 w/ hx of Right LE angio (diagnostic) 05/06/25, Right ANgio 04/04/23, Right Angio 04/13/21 & Left endarterectomy 06/2018, Right Angio 12/19/17. Pt states bilateral LE still bother him, states he can only can walk 100 yards. States he has bilateral foot numbness as well s/p spinal procedure. 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 He was originally treated for peripheral vascular disease in 2017 and most recently underwent a diagnostic angiogram in April 2025. His arterial circulation is currently NA of 0.71 on the right of 0.9 on the left., which is considered decent. The patient also reports spinal issues with lower back pain, for which he has seen pain management and received injections that did not alleviate the pain. 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 The neuropathy has been confirmed by a conductor test indicating nerves due to the back surgery. The patient is advised to regularly inspect his feet using a mirror to prevent unnoticed injuries due to neuropathy. [facility] Medical History Bladder cancer Ascending aorta dilatation PONV (postoperative nausea and vomiting) Pulmonary emphysema Dyspnea on exertion COPD (chronic obstructive pulmonary disease) CAD (coronary artery disease) HTN (hypertension) Hyperlipidemia PAD (peripheral artery disease) Hypercholesteremia Surgical History History of lumbar fusion Hx of bilateral cataract extraction Hx of cystoscopy History of back surgery H/O cardiac catheterization Stented coronary artery Hx of colonoscopy Hx of inguinal hernia repair Hx of appendectomy History of hip surgery History of femoral angiogram Family History Father CVD (cardiovascular disease) Mother Lung cancer Social History Household Members: Spouse Housing: House Are you a primary healthcare recruiter to a significant other at home: No Do you presently have visiting nurse or other home services: No Alcohol intake: current Alcohol intake frequency: a few times a month Alcohol type: beer Patient Tobacco Use Status: Former Tobacco user Tobacco use type: Cigarette Years Smoked: 25 Second Hand Smoke Exposure: No service: Yes Review of Systems Const All systems reviewed & are unremarkable except as noted in HPI and below Reports no additional complaints ENT Reports Normal hearing present Card Denies chest pain, Denies chest pain at rest, Denies chest pain with activity and Denies pedal edema Resp Denies cough GI Denies abdominal pain Musc Denies abnormal gait, Denies muscle cramps and Denies radiating pain into limb Skin/Breast Denies skin ulcer and Denies wounds Neuro Reports Normal hearing present and Denies abnormal gait Psych Reports no additional complaints Physical Exam Vital Signs: BMI result Body Mass Index 28.6 Const General: cooperative, healthy appearing and comfortable Orientation/consciousness: oriented to person, oriented to place and oriented to time HEENT Head: Yes normal to inspection Neck Neck: Yes normal visual inspection Carotids: no bruits Chest Chest palpation & inspection: normal inspection of the chest Resp Effort & Inspection: normal respiratory effort and able to speak in complete sentences Auscultation: clear to auscultation bilaterally, no crackles, no rales, no rhonchi and no wheezes Cardio Other: Bilateral DP signals Rate: regular rate Rhythm: regular rhythm Heart sounds: S1 normal heart sound present and S2 normal heart sound present Bruits: no carotid bruits GI Inspection: Yes normal to inspection Skin Wounds: no wounds Hair: normal Neuro General: oriented to person, oriented to place and oriented to time Cranial nerves: Yes CN's II-XII intact bilaterally and Yes Normal hearing present Cognition (Neuro): normal cognition Motor exam (neuro): 5/5 motor strength present throughout Extrem Other: venous exam: No significant superficial varicosities or spider telangiectasias, minimal edema General: No clubbing, No cyanosis and No edema Psych Appearance: grossly normal Mental Status: mental status grossly normal Speech and movement: Normal speech and movement present Results Reviewed Results Reviewed: Noninvasive arterial testing dated 08/11/2025 demonstrates NA on the right of 0.71 and on the left of 0.9. Written report and images were reviewed. Assessment & Plan Assessment & Plan (1) PAD (peripheral artery disease): Comment: (follows w/Dr. Bear) 05/06/2025 - diagnostic right lower extremity angiogram 04/04/2023- right SFA atherectomy and stent placement 04/13/2021- angioplasty right peroneal and popliteal artery, angioplasty and stent of right SFA 06/2018 Left fem endarterectomy Right superficial fem artery atherectomy and angioplasty Right atherectomy and balloon angioplasty of the popliteal & superficial arteries and peroneal artery. 12/19/2017 Code(s): I73.9 - Peripheral vascular disease, unspecified Category: Medical Plan: In short patient has stable arterial supply. I did review the pathophysiology of peripheral vascular disease with the patient. In addition we did discuss routine conservative measures including a healthy diet and the importance of exercise and ambulation. We did discuss risk factor modification. I do think the majority of his issues are neuropathic in nature. He does have lower extremity pain along with back and spine issues. He did follow-up with pain management which provided minimal relief. Would continue with neurologic evaluation. The patient will continue to to follow-up with surveillance follow-up in approximately 1 year. Thank you for allowing us to participate in this patient's care. If there are any questions or concerns please do not hesitate to contact us. Orders: Orders US arterial duplex LE BI 1 Year I73.9 - Peripheral vascular disease, unspecified Coding Level of Care Code Est Pt Level 4 (84753) Diagnoses PAD (peripheral artery disease) I73.9
--- OUTSIDE RECORDS SUMMARY | 2025-09-17 09:49 | XMS_ITS | Patient Health Record ---
Author Organization Trevon Colby III, MD Address [address] [place] [address] Care Team Providers Care Merchandiser Name Role Phone Dr. Trevon Colby III [...] Reviewed date:09/18/2024 09:17:25 AM Interpretation: Performing Lab:[facility], [address] [place] [address] Notes/Report: Glucose, Whole Blood 178 60-115 mg/dL METER # : [id number] FL guidance in OR Reviewed date:09/23/2024 08:42:28 AM Interpretation: Performing Lab: Notes/Report: [facility] [address] [place] [address] Fluoroscopy Report Signed Patient: Spencer Price MR#: [id number] : 1945 Acct:[id number] Age/Sex: 79 / M ADM Date: 09/17/24 Loc: HO.S3 344-[address]: Vikram RUVALCABA Ordering Physician: George Baltazar MD, PhD Date of Service: 09/17/24 Procedure(s): FL guidance in OR Accession Number(s): [id number] cc: Trevon Colby MD; George Baltazar MD, [...] 09/18/24 1240 DD/ 0740 TD/TT: 09/17/24 1025 Hydrology Professor: [address] [address] Fluoroscopy Report Signed Patient: Spencer Price MR#: [id number] : 1945 Acct:[id number] Age/Sex: 79 / M ADM Date: 09/17/24 Loc: HO.S3 344-[address]: Vikram RUVALCABA Ordering Physician: George Baltazar MD, PhD Date of Service: 09/17/24 Procedure(s): FL guidance in OR Accession Number(s): [id number] cc: Trevon Colby MD; George Baltazar MD, [...] 09/18/24 1240 DD/ 0740 TD/TT: 09/17/24 1025 Hydrology Professor: KAIDEN Complete Blood Count Auto Di ff Reviewed date:09/23/2024 08:42:28 AM Interpretation: Performing Lab:[facility], [address] [place] [phone] Notes/Report: White Blood Count 11.7 4.8-10.8 X10*3/uL [...] date:01/19/2025 08:16:21 PM Interpretation: Performing Lab: Notes/Report: [address] [address] Ultrasound Report Signed Patient: Spencer Price MR#: [id number] : 1945 Acct:[id number] Age/Sex: 79 / M ADM Date: 11/06/24 Loc: .US Attending Dr: Rusty Bear MD Ordering Physician: Rusty Bear MD Date of Service: 11/06/24 Procedure(s): US arterial duplex BI w/ NA Accession Number(s): [id number] cc: Trevon Colby MD; Rusty Bear MD [...] Stent from the proximal to mid SFA: Seminole artery proximal to stent: 97 cm/s Proximal stent: 142 cm/s Mid stent: 119 cm/s Distal stent: 172 cm/s Seminole artery distal to stent: 154 cm/s Superficial femoral artery (mid): 154 cm/s. Stent from mid to distal SFA: Seminole artery proximal to stent: 145 cm/s Proximal stent: 136 cm/s Mid stent: 121 cm/s Distal stent: 146 cm/s Seminole artery distal to stent: 94 cm/s Diastolic [...] 11/24/24 1237 DD/ 1315 TD/TT: 11/06/24 1400 Hydrology Professor: [address] [address] Ultrasound Report Signed Patient: Spencer Price MR#: [id number] : 1945 Acct:[id number] Age/Sex: 79 / M ADM Date: 11/06/24 Loc: . Attending Dr: Rusty Bear MD Ordering Physician: Rusty Bear MD Date of Service: 11/06/24 Procedure(s): US arterial duplex BI w/ NA Accession Number(s): [id number] cc: Trevon Colby MD; Rusty Bear MD [...] from the proxi mal to mid SFA: Seminole artery proxim al to stent: 97 cm/s Proximal stent: 142 cm/s Mid stent: 119 cm/s Distal stent: 172 cm/s Seminole artery distal to stent: 154 cm/s Superficial femoral artery (mid): 154 cm/s. Stent from mid to distal SFA: Seminole artery proxim al to stent: 145 cm/s Proximal stent: 136 cm/s Mid stent: 121 cm/s Distal stent: 146 cm/s Seminole artery distal to stent: 94 cm/s Diastolic [...] 11/24/24 1237 DD/ 1315 TD/TT: 11/06/24 1400 Hydrology Professor: XR lumbar spine 4V min Reviewed date:01/19/2025 08:16:21 PM Interpretation: Performing Lab: Notes/Report: [facility] [address] [place] [address] Drive [address] [place] [address] XRay Report Signed Patient: Spencer Price MR#: [id number] : 1945 Acct:[id number] Age/Sex: 79 / M ADM Date: 11/17/24 Loc: HO.HOSX Attending Dr: Vikram RUVALCABA Ordering Physician: Vikram Grant Date of Service: 11/17/24 Procedure(s): XR lumbar spine 4V min Accession Number(s): [id number] cc: Trevon Colby MD; Vikram Grant . [...] 11/19/24 1305 DD/ 0855 TD/TT: 11/17/24 0900 Hydrology Professor: [facility] [address] [place] [address] XRay Report Signed Patient: Spencer Price MR#: [id number] : 1945 Acct:[id number] Age/Sex: 79 / M ADM Date: 11/17/24 Loc: HO.HOSX Attending Dr: Vikram RUVALCABA Ordering Physician: Vikram Grant Date of Service: 11/17/24 Procedure(s): XR lum bar spine 4V min Accession Number(s): [id number] cc: Trevon Colby MD; Vikram Grant . [...] by: Akshat Jiang MD 11/19/2024 01:05 PM [facility] Dictated By: Akshat Rivas MD Signed By: <Electronically signed by Akshat Jordan MD in OV> 11/19/24 1305 DD/ 0855 TD/TT: 11/17/24 0900 Hydrology Professor: MR lumbar spine wo/w con Reviewed date:01/19/2025 08:16:21 PM Interpretation: Performing Lab: Notes/Report: [address] [address] Magnetic Resonance Report Signed Patient: Spencer Price MR#: [id number] : 1945 Acct:[id number] Age/Sex: 79 / M ADM Date: 11/19/24 Loc: HO.MRI Attending Dr: Vikram RUVALCABA Ordering Physician: Vikram Grant Date of Service: 11/19/24 Procedure(s): MR lumbar spine wo/w con Accession Number(s): [id number] cc: Trevon Colby MD; Vikram Grant EXAMINATION: [...] 11/24/24 0953 DD/ 1220 TD/TT: 11/19/24 1312 Hydrology Professor: [address] [address] Magnetic Resonance Report Signed Patient: Spencer Price MR#: [id number] : 1945 Acct:[id number] Age/Sex: 79 / M ADM Date: 11/19/24 Loc: HO.MRI Attending Dr: Vikram RUVALCABA Ordering Physician: Vikram Grant Date of Service: 11/19/24 Procedure(s): MR lum bar spine wo/w con Accession Number(s): [id number] cc: Trevon Colby MD; Vikram Grant EXAMINATION: [...] 11/24/24 0953 DD/ 1220 TD/TT: 11/19/24 1312 Hydrology Professor: Complete Blood Count Auto Di ff Reviewed date:02/04/2025 08:51:44 AM Interpretation: Performing Lab:[facility], [address] [place] [phone] Notes/Report: White Blood Count 5.0 4.8-10.8 X10*3/uL [...] NRBC Abs Auto 0.000 0.0-0.012 X10*3/uL Comprehensive [place]. Panel Fa st Reviewed date:02/04/2025 08:51:44 AM Interpretation: Performing Lab:[facility], [address] [place] [phone] Notes/Report: Sodium 137 135-145 mmol/L Potassium 4.6 [...] Reviewed date:02/04/2025 08:51:45 AM Interpretation: Performing Lab:[facility], [address] [place] [phone] Notes/Report: Triglycerides 56 <150 mg/dL Desirable Triglyceride: [...] Antigen Reviewed date:02/04/2025 08:51:45 AM Interpretation: Performing Lab:[address] [address] Notes/Report: Prostate Specific Antigen 2.83 <0.05-4.0 ng/mL PSA methodology: Chavez Alinity i Chemiluminescent Microparticle Immunoassay (CMIA) Blood Urea Nitrogen Reviewed date:05/07/2025 04:33:18 AM Interpretation: Performing Lab:[address] [address] Notes/Report: Blood Urea Nitrogen 32 9-16 mg/dL Creatinine Reviewed date:05/07/2025 04:33:18 AM Interpretation: Performing Lab:[address] [address] Notes/Report: Creatinine 1.50 0.5-1.4 mg/dL Estimated Glomerular Filt Rate 45 Chronic Kidney Disease: Estimated GFR < 60 mL/min/1.73m2 Severe Kidney Disease: Estimated GFR < 15 mL/min/1.73m2 CT angio abd aorta runoff Reviewed date:05/07/2025 04:33:18 AM Interpretation: Performing Lab: Notes/Report: [address] [place] [address] CT Scan Report Signed Patient: Spencer Price MR#: [id number] : 1945 Acct:[id number] Age/Sex: 79 / M ADM Date: 04/16/25 Loc: HO.CT Attending Dr: Rusty Bear MD Ordering Physician: Rusty Bear MD Date of Service: 04/16/25 Procedure(s): CT angio abd aorta runoff Accession Number(s): [id number] cc: Trevon Colby MD; Rusty Bear MD Report Number: [id number]: Total DLP = 787.00 mGy-cm CLINICAL HISTORY: [...] in OV> 04/17/25848 DD/ 8 TD/TT: 04/17/25848 Hydrology Professor: [address] [address] [address] Scan Report Signed Patient: Spencer Price MR#: [id number] : 1945 Acct:[id number] Age/Sex: 79 / M ADM Date: 04/16/25 Loc: HO.CT Attending Dr: Rusty Bear MD Ordering Physician: Rutsy Bear MD Date of Service: 04/16/25 Procedure(s): CT ang io abd aorta runoff Accession Number(s): [id number] cc: Trevon Colby MD; Rusty Bear MD Report Number: [id number]: Total DLP = 787.00 mGy-cm CLINICAL HISTORY: [...] in OV> 04/17/2549 DD/ 8 TD/TT: 04/17/25848 Hydrology Professor: Complete Blood Count Auto Di ff Reviewed date:05/07/2025 04:33:18 AM Interpretation: Performing Lab:[facility], [address] [place] [phone] Notes/Report: White Blood Count 4.7 4.8-10.8 X10*3/uL [...] NRBC Abs Auto 0.000 0.0-0.012 X10*3/uL Comprehensive [place]. Panel Fa st Reviewed date:05/07/2025 04:33:18 AM Interpretation: Performing Lab:[facility], [address] [place] [phone] Notes/Report: Sodium 140 135-145 mmol/L Potassium 5.1 [...] Panel Reviewed date:05/07/2025 04:33:18 AM Interpretation: Performing Lab:[address] [address] Notes/Report: Triglycerides 46 <150 mg/dL Desirable Triglyceride: [...] Reviewed date:05/07/2025 04:33:18 AM Interpretation: Performing Lab:[facility], [address] [place] [phone] Notes/Report: White Blood Count 5.2 4.8-10.8 X10*3/uL [...] Reviewed date:05/07/2025 04:33:18 AM Interpretation: Performing Lab:[facility], [address] [place] [phone] Notes/Report: Blood Urea Nitrogen 46 9-16 mg/dL Creatinine Reviewed date:05/07/2025 04:33:18 AM Interpretation: Performing Lab:[facility], [address] [place] [phone] Notes/Report: Creatinine 1.66 0.5-1.4 mg/dL Creatinine Clr [...] ff Reviewed date:08/02/2025 01:22:03 PM Interpretation: Performing Lab:[facility], [address] [place] [phone] Notes/Report: White Blood Count 4.8 4.8-10.8 X10*3/uL [...] NRBC Abs Auto 0.000 0.0-0.012 X10*3/uL Comprehensive [place]. Panel Fa st Reviewed date:08/02/2025 01:22:03 PM Interpretation: Performing Lab:[address] [address] Notes/Report: Sodium 140 135-145 mmol/L Potassium 4.6 [...] Panel Reviewed date:08/02/2025 01:22:03 PM Interpretation: Performing Lab:[address] [address] Notes/Report: Triglycerides 48 <150 mg/dL Desirable Triglyceride: [...] date:08/24/2025 09:28:21 AM Interpretation: Performing Lab: Notes/Report: [address] [address] Ultrasound Report Signed Patient: Spencer Price MR#: [id number] : 1945 Acct:[id number] Age/Sex: 80 / M ADM Date: 08/11/25 Loc: .US Attending Dr: Rusty Bear MD Ordering Physician: Rusty Bear MD Date of Service: 08/11/25 Procedure(s): US arterial duplex BI w/ NA Accession Number(s): [id number] cc: Trevon Colby MD; Rusty Bear MD [...] Spectral broadening. Stent Superficial femoral artery midsegment: Seminole artery proximal to the stent: 113 cm/s and biphasic waveforms. Proximal stent: 119 cm/s and monophasic waveform. Mid stent: 116 cm/s and monophasic waveform. Distal stent: 128 ms and monophasic waveform. Seminole artery distal to stent: 102 cm/s. Stent, distal superficial femoral artery: Seminole artery proximal to the stent: 93 cm/s and monophasic waveform. Proximal stent: 102 cm/s and monophasic waveform. Mid stent: 110 cm/s and monophasic waveform. Distal stent: 89 cm/s and monophasic waveform. Seminole artery distal to the stent: 97 cm/s [...] in OV> 08/12/25921 DD/ TD/TT: 08/11/25 1015 Hydrology Professor: [place] [address] Ultrasound Report Signed Patient: Spencer Price MR#: [id number] : 1945 Acct:[id number] Age/Sex: 80 / M ADM Date: 08/11/25 Loc: .US Attending Dr: Rusty Bear MD Ordering Physician: Rusty Bear MD Date of Service: 08/11/25 Procedure(s): US arterial duplex BI w/ NA Accession Number(s): [id number] cc: Trevon Colby MD; Rusty Bear MD [...] Spectral broadening. Stent Superficial femoral artery midsegment: Seminole artery proxim al to the stent: 113 cm/s and biphasic waveforms. Proximal stent: 119 cm/s and monophasic waveform. Mid stent: 116 cm/s and monophasic waveform. Distal stent: 128 ms and monophasic waveform. Seminole artery distal to stent: 102 cm/s. Stent, distal superficial femoral artery: Seminole artery proxim al to the stent: 93 cm/s and monophasic waveform. Proximal stent: 102 cm/s and monophasic waveform. Mid stent: 110 cm/s and monophasic waveform. Distal stent: 89 cm/ s and monophasic waveform. Seminole artery distal to the stent: 97 cm/s [...] OV> 08/12/25921 DD/ 0945 TD/TT: 08/11/25 1015 Hydrology Professor: Reason For Referral No Information Medications Medication [...] Problem Status W/U Status Risk Notes Problem 0345623 Former smoker (Z87.891) Active confirmed He is highly motivated not to smoke and we discussed means of preserving abstinence in times of stress. Problem 53198237 Hyperlipidemia (E78.5) Active confirmed His total cholesterol level is low. His lipids are in near target range. No change in his medications was made. His lipids were reviewed. He will have fasting lipid profile in the near future. Problem 469933095 Overweight (E66.3) Active confirmed His body mass [...] weight maintenance diet low in cholesterol. Problem 999894551 Tubular adenoma (D36.9) Active confirmed He will continue to undergo colonoscopies every 5 years. Problem 92039976 Carpal tunnel syndrome, right upper limb (G56.01) Active confirmed He has seen the orthopedic surgeon and will undergo surgery for carpal tunnel syndrome on the right later this month. He is cleared for surgery at this time. Problem 06628069 Coronary artery disease (I25.10) Active confirmed His angina is stable. He reports none recently. He was compliant with all of his medications since his last visit. No change in his regimen was needed. Problem 352618856 BPH (benign prostatic hyperplasia) (N40.0) Active confirmed He arises from sleep once or twice a night to urinate. We have discussed lifestyle modifications he could make to reduce nocturia. Problem 635902884 Peripheral vascular disease (I73.9) Active confirmed He [...] and was thought to be stable. 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 He has an upcoming appointment with a neurosurgeon at the end of this month. Problem 922732051 Erectile dysfunction (N52.9) Active confirmed This is well compensated with medications. Problem 838433343 Osteoarthritis of right hip (M16.11) Active confirmed . He describes a hip pain as mild today. Problem 87077563 Spinal stenosis, lumbar (M48.06) Active confirmed The lumbar fusiontook place without side effects or incidents. He notices a substantial improvement in his back pain. The wound is well-healed. He reports much less pain with ambulation. 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 The discomfort has resolved. Problem Pulmonary emphysema (46296020) Emphysema lung (J43.9) Active confirmed He is no longer smoking. He is short of breath with sustained exertion but is comfortable breathing room air at rest. Problem 572822631 History of bladder cancer (Z85.51) Active confirmed There was no sign of cancer on his exam today. He recently had a cystoscopy, March 2024 which showed no gross recurrence. Surveillance will continue Problem 230507787 Stage 2 chronic kidney disease (N18.2) Active confirmed His renal function is stable and will be followed carefully. Problem 1478126338259 Recurrent epistaxis (R04.0) Active confirmed He will continue the use of aspirin. He was instructed on techniques to stop bleeding. He was instructed to go to the emergency room if bleeding does not stop. If this continues he will see ENT for definitive treatment. 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) [...] Date Provider Diagnosis Trevon Colby III, MD [address] [place] [address] [place] [address] 10/13/2024 Trevon Colby Hyperlipidemia E78.5 ; Spinal stenosis, lumbar M48.06 ; Overweight E66.3 ; BPH (benign prostatic hyperplasia) N40.0 ; Former smoker Z87.891 ; History of bladder cancer Z85.51 ; Peripheral vascular disease I73.9 ; Osteoarthritis of right hip M16.11 ; Coronary artery disease I25.10 ; Stage 2 chronic kidney disease N18.2 and Emphysema lung J43.9 Trevon Colby III, MD [address] [place] [address] [place] [address] 02/11/2025 Trevon Colby Injury of left peron eal nerve, sequela S84.12XS ; Hyperlipidemia E78.5 ; Stage 2 chronic kidney disease N18.2 ; Osteoarthritis of right hip M16.11 ; Overweight E66.3 ; Spinal stenosis, lumbar M48.06 ; BPH (benign prostatic hyperplasia) N40.0 ; Former smoker Z87.891 and Peripheral vascular disease I73.9 Trevon Colby III, MD [address] [place] [address] [place] [address] 04/13/2025 Trevon Colby Hyperlipidemia E78.5 ; Recurrent epistaxis R04.0 ; Osteoarthritis of right hip M16.11 ; Spinal stenosis, lumbar M48.06 ; Former smoker Z87.891 and Peripheral vascular disease I73.9 Trevon Colby III, MD [address] [place] [address] [place] [address] 05/05/2025 Trevon Colby Hyperlipidemia E78.5 ; Peripheral [...] Emphysema lung J43.9 Trevon Colby III, MD [address] [place] [address] [place] [address] 08/06/2025 Trevon Colby Hyperlipidemia E78.5 ; Coronary artery disease I25.10 ; Stage 2 chronic kidney disease N18.2 ; Osteoarthritis of right hip M16.11 ; Overweight E66.3 ; Spinal stenosis, lumbar M48.06 ; BPH (benign prostatic hyperplasia) N40.0 ; History of bladder cancer Z85.51 ; Emphysema lung J43.9 and Peripheral vascular disease I73.9 Trevon Colby III, MD [address] [place] [address] [place] [address] 09/11/2025 Trevon Colby III, MD [address] [place] [address] [place] [address] 11/28/2024 Trevon Colby Hyperlipidemia E78.5 Trevon Colby III, MD [address] [place] [address] [place] [address] 12/12/2024 Trevon Colby Hyperlipidemia E78.5 Trevon Colby III, MD [address] [place] [address] [place] [address] 01/19/2025 Trevon Colby III, MD [address] [place] [address] [place] [address] 01/20/2025 Trevon Colby III, MD [address] [place] [address] [place] [address] 05/07/2025 Trevon Colby Assessments Encounter Date Diagnosis [...] all of his medications. He saw his sales producer this month who found him to be [...] all of his medications. He saw his sales producer this month who found him to be [...] EKG 08/23/2023 Next Appt Details Provider Name:Trevon Szymanskine , 10/29/2025 09:45:00 AM, [address] [place] [address] [place], [address], Provider Name:Trevon Manjit Lasha , 05/06/2026 09:30:00 AM, [address] [place] [address] [place], [address], Insurance Providers Payer Name Payer Address Payer Phone Subscriber Number Group Number Insured Name Patient Relationship to Insured Coverage Start Date Coverage End Date [facility] [address] [address] [place] [phone] [id number] Spencer Price Self - patient is the insured MEDICARE NGS [address] [place] [phone] [id number] Spencer Price Self - patient is the [...] 17 Surgical History Surgery Date(Month/Year) L3-L5 fusion [facility] [place] 09/18/2024 Left femoral endarterectomy, right superficial Femoral artery atherectomy and angioplasty 06/2018 Right popliteal and peroneal artery athe rectomy and angioplasty 12/2017 Angioplasty right peroneal and popliteal artery 04/13/2021 Lumbar L3-5 Laminectomy, par tial facetectomy, foraminotomy, [facility], Dr Baltazar 10/25/[address] eBar 04/2021 carpal tunnel right hand 10/2019 carpal tunnel surgery right hand, Instru m 04/2018 right common femoral artery angioplasty 2016 left iliofemoral endarterectomy 2015 cardiac catheterization with stent insertion, inferior wall ischemia, 99% right coronary artery stenosis 2015 colonoscopy, negative 2011 colonoscopy, negative 2006 colonoscopy, tubular adenoma 2002 Cataract surgery both eyes 2010 Hip replacement right appendectomy herniorrhaphy Hospitalization History Reason Date(Month/Year) Back surgery on september 1709/2024
--- OUTSIDE RECORDS SUMMARY | 2025-09-17 09:49 | XMS_ITS | Encounter Summary ---
Author Organization [facility] Address [address] [place] [address] Care Team Providers Care Job Analyst Name Role Phone Physician, Pcp Unknown Primary Care Provider Lo vailable Encounter Details Date Type Department Care Team (Late st Contact Info) Description 06/15/2025 Lab Requisition [facility] - Main Lab [address] [place] [phone] Kleber Rodriguez MD [address] [place] [address] Malignant neoplasm of overlapping sites [...] AM EDT) Final Diagnosis A. Urine, Voided, [id number]: Negative for high grade urothelial carcinoma. Results of UroVysion fluorescence in situ hybridization (FISH) testing: CEP3: Normal CEP7: Normal CEP17: Normal LSI 9p21: Normal Interpretation: Normal profile Controls stained appropriately. Note: The results are intended as a screening device and should be interpreted in association with other clinical and pathological findings. 06/23/2025 9:[address] [facility] Specimen A Adequacy Satisfactory for evaluation 06/23/2025 9:[address] [facility] Clinical Information Malignant neoplasm of overlapping sites of bladder C67.8 Urine Cytology/FISH (now) 06/23/2025 9:[address] [facility] Gross Description A. Urine, Voided, [id number]: Received one ThinPrep slide for cytology and one ThinPrep slide for UroVysion FISH 06/23/2025 9:[address] [facility] Disclaimer Unless otherwise specified, all tissue is 10% NB formalin fixed and paraffin embedded. Technical pathology services provided by [facility] [address] [place] [address] (CLIA #[id number]/Jacque Good MD, [employer]) 06/23/2025 9:[address] [facility] Urine Urine specimen from urethra / Unknown 06/08/2025 06/15/2025 9:32 AM EDT us Kleber Rodriguez MD LAB CYTOLOGY ORDERABLES Final R esult [facility] [address] [place] [address], documented in this encounter Visit Diagnoses Diagnosis Malignant neoplasm of overlapping sites of bladder (CMS/HCC V24, CMS/HCC V28) documented in this encounter Care Teams Job Analyst Relationship Specialty Start Date End Date Physician, Pcp Unknown PCP - General 06/15/25 documented as of this encounter
--- OUTSIDE RECORDS SUMMARY | 2025-09-17 09:50 | XMS_ITS | Clinical Summary ---
Author Organization [address] Address [address] [place] [address] Phone Care Team Providers Care Quality Assurance Intern Name Role Phone Physician, Pcp Unknown Primary [...] patient's age to complete this topic Insurance [facility] Care Teams Quality Assurance Intern Relationship Specialty Start Date End Date Physician, Pcp Unknown PCP - General 06/15/25
== END 2025-09-17 09:49 | disposition home or self-care (01) ==
LOC: HO.HVS 09:04
PROVIDERS: PCP Internal Medicine Medical Oncology; Visit Provider Surgery Vascular Surgery
DX: I73.9 Peripheral vascular disease, unspecified (principal)
CPT/HCPCS: 99214

== ENCOUNTER → 2025-09-17 09:03 | Outpatient (BNVA) | payer MEDICARE, SELFPAY | PROVIDERS: PCP Internal Medicine Medical Oncology; Visit Provider Surgery Vascular Surgery | DX: Z71.2 Person consulting for explanation of examination or test findings (principal); I73.9 Peripheral vascular disease, unspecified | CPT/HCPCS: 99212 ==

== ENCOUNTER 2025-10-21 07:35 | Outpatient (REF) | payer MEDICARE, SELFPAY ==
--- OUTSIDE RECORDS SUMMARY | 2024-11-28 04:58 | XMS_ITS ---
Author Organization Trevon Colby III, MD Address [address] [place] [address] [place] [address] Care Team Providers Care Wrapper Stemmer Hand Name Role Phone Dr. Trevon Colby III [...] Date Provider Diagnosis Trevon Colby III, MD [address] [place] [address] [address] [place] [address] 11/28/2024 Trevon Colby Hyperlipidemia E78.5 Assessments Encounter [...] Saravia Lasha , 10/29/2025 09:45:00 AM, 10 [facility] [address], [place], [address], Provider Name:Trevon Szymanskine , 05/06/2026 09:30:00 AM, [address] [facility] [address], [place], [address], Progress Notes * Spencer PR[birth year]EDOB:[birth year] (79 yo M)Acc No.[id number]:11/28/2024 Patient: Spencer PATEL :1945 A ge:79 Y S ex:Male Address:[address] [place] [address], [place], [address] * Refills Refill Naproxen Tablet, 500 MG, [...] * Date: Generated for Allison jimenez/Bhavin/Nakul on: 12/22/2024 07:57 AM EST
--- OUTSIDE RECORDS SUMMARY | 2024-12-12 05:45 | XMS_ITS ---
Author Organization Trevon Colby III, MD Address [address] [place] [address] [place] [address] Care Team Providers Care Steel Pourer Name Role Phone Dr. Trevon Colby III Primary Care Provider REASON FOR VISIT Rx ? Medications Medication SIG (Take, Route, Frequency, Duration) Notes Start Date End Date Status Metoprolol Succinate ER SUC 50MG 1 tablet Orally Once a day for 90 days Active Social History Sex Assigned At : Social History Observation Description Sex Assigned At Male Encounters Encounter Location Date Provider Diagnosis Trevon Colby III, MD [address] [place] [address] [place] [address] 12/12/2024 Trevon Colby Hyperlipidemia E78.5 Assessments Encounter [...] Provider Name:Trevon Colby , 10/29/2025 09:45:00 AM, [address] [place] [address] [place], [address], Provider Name:Trevon Colby , 05/06/2026 09:30:00 AM, [address] [place] [address] [place], [address], Progress Notes * Spencer PR[birth year]EDOB:[birth year] (79 yo M)Acc No.[id number]:12/12/2024 Patient: Spencer PATEL :1945 A ge:79 Y S ex:Male Address: [address], [place], [address] * Refills Refill Metoprolol Succinate ER Tablet Extended Release 24 Hour, SUC 50MG, Orally, 90 Tablet, 1 tablet, Once a day, 90 days, Refills=3 * true * Date: Generated for Allison jimenez/Bhavin/Nakul on: 12/22/2024 07:55 AM EST
--- OUTSIDE RECORDS SUMMARY | 2025-01-19 05:21 | XMS_ITS ---
Author Organization Trevon Colby III, MD Address [address] [place] [address] [place] [address] Care Team Providers Care Sagger Soak Name Role Phone Dr. Trevon Colby III Primary Care Provider REASON FOR VISIT Rx Request Social History Sex Assigned At : Social History Observation Description Sex Assigned At Male Encounters Encounter Location Date Provider Diagnosis Trevon Colby III, MD [address] [place] [address] [place] [address] 01/19/2025 Trevon Colby Plan Of Treatment Next Appt Details Provider Name:Trevon Colby , 10/29/2025 09:45:00 AM, [address] [place] [address] [place], [address], Provider Name:Trevon Colby , 05/06/2026 09:30:00 AM, [address] [place] [address] [facility] [place], [address], Progress Notes * Spencer PR[birth year]EDOB:[birth year] (79 yo M)Acc No.[id number]:01/19/2025 Patient: Spencer PATEL :1945 A ge:79 Y S ex:Male Address:[address] [place], [address] * true * Date: Generated for Printi ng/Faxing/eTransmitting on: 1 12/22/2024 07:52 AM EST
--- OUTSIDE RECORDS SUMMARY | 2025-01-20 06:36 | XMS_ITS ---
Author Organization Trevon Colby III, MD Address [address] [place] [address] Care Team Providers Care Front Desk Name Role Phone Dr. Trevon Colby III Primary Care Provider Medications Medication SIG (Take, Route, Frequency, Duration) Notes Start Date End Date Status Ezetimibe 10 MG 1 tablet Orally Once a day for 90 days 01/20/2025 Active Atorvastatin Calcium 80 MG 1 tablet Oral ly Once a day for 90 days 01/20/2025 Active Social History Sex Assigned At : Social History Observation Description Sex Assigned At Male Encounters Encounter Location Date Provider Diagnosis Trevon Colby III, MD [address] [place] [address] [place] [address] 01/20/2025 Trevon Colby Plan Of Treatment Medication Medication Name Sig Start Date Stop Date Notes Ezetimibe 10 MG 1 tablet Orally Once a day for 90 days 01/20/2025 Atorvastatin Calcium 80 MG 1 tablet Oral ly Once a day for 90 days 01/20/2025 Next Appt Details Provider Name:Trevon Colby , 10/29/2025 09:45:00 AM, [address] [place] [address] [place], [address], Provider Name:Trevon Colby , 05/06/2026 09:30:00 AM, [address] [place] [address] [place], [address], Progress Notes * Spencer PRICEDOB:[birth year] (79 yo M)Acc No.[id number]:01/20/2025 Patient: Spencer PATEL :1945 A ge:79 Y S ex:Male Address:[address] [place] [address], [place], [address] * Refills Start Ezetimibe Tablet, 10 MG, Orally, 90 Tablet, 1 tablet, Once a day, 90 days, Refills=3 Start Atorvastatin Calcium Tablet, 80 MG, Orally, 90 Tablet, 1 tablet, Once a day, 90 days, Refills=3 * true * Date: Generated for Allison jimenez/Bhavin/Nakul on: 12/22/2024 07:52 AM EST
--- OUTSIDE RECORDS SUMMARY | 2025-02-11 05:00 | XMS_ITS ---
Author Organization Trevon Colby III, MD Address [address] [place] [address] [place] [address] Care Team Providers Care Spanish Linguist Name Role Phone Dr. 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) [...] Date Provider Diagnosis Trevon Colby III, MD [address] [place] [address] [place] [address] 02/11/2025 Trevon Colby Injury of left peron [...] 4 Months, Reason: ov review labs Provider Name:Trevon Colby , 10/29/2025 09:45:00 AM, [address] [place] [address] DR JORGE ALBERTO Carmela, [place], [address], Provider Name:Trevon Colby , 05/06/2026 09:30:00 AM, [address] [place] [address] JORGE ALBERTO DANIELSON, [place], [address], Progress Notes * Spencer PR[birth year]EDOB:[birth year] (79 yo M)Acc No.[id number]:02/11/2025 Progress Notes Patient: Spencer PATEL Provider: Eduar Colby MD :1945 A ge:79 Y S ex:Male Date:02/11/2025 Address: [address] [place] [id number] Subjective: * Chief Complaints: * R ecent spine surgeryPeripheral arterial diseaseNumbness in both feetLeft peroneal nerve injurySpinal stenosisBenign prostatic hypertrophyEmphysemaChronic renal diseaseCoronary artery diseaseHistory of bladder cancer * HPI: C OVID-19 Screening: Kelley rangel returns for a scheduled visit to manage his numerous medical issues at the age of 79. On September 18, 2025 at [facility] by Dr. Baltazar he had and L2 [...] Bear 1Lumbar L3-5 Laminectomy, partial facetectomy, foraminotomy, [facility], Dr Baltazar 3Angioplasty right peroneal and popliteal artery 1Right popliteal and peroneal artery atherectomy and angioplasty 12/2017Left femoral endarterectomy, right superficial Femoral artery atherectomy and angioplasty [id number] [place] [facility] [place] * Hospitalization/Major Diagno stic Procedure: B [...] 0 02/11/2025 Generated for Allison jimenez/Bhavin/Nakul on: 1 12/22/2024 07:54 AM EST History and Physical Notes * [...]
--- OUTSIDE RECORDS SUMMARY | 2025-04-13 08:30 | XMS_ITS ---
Author Organization Trevon Colby III, MD Address [address] [place] [address] [place] [address] Care Team Providers Care Forms Analysis Manager Name Role Phone Dr. Trevon Colby [...] Problem Status W/U Status Risk Notes Problem [id number] Recurrent epistaxis (R04.0) Active confirmed He will [...] Provider Diagnosis Trevon Colby III, MD [address] [place] [address] [place] [address] 04/13/2025 Trevon Colby Hyperlipidemia E78.5 ; Recurrent [...] Provider Name:Trevon Colby , 10/29/2025 09:45:00 AM, [address] [place] [address] [address], [place], [address], Provider Name:Trevon Colby , 05/06/2026 09:30:00 AM, [address] [place] [address] [address], [place], [address], Progress Notes * Spencer PR[birth year]EDOB:[birth year] (79 yo M)Acc No.[id number]:04/13/2025 Progress Notes Patient: Spencer PATEL Provider: Eduar Colby MD :1945 A ge:79 Y S ex:Male Date:04/13/2025 Address:[address] [place] [address] [place], [place]-[id number] Subjective: * Chief [...] Bear 1Lumbar L3-5 Laminectomy, partial facetectomy, foraminotomy, [facility], Dr Baltazar 3Angioplasty right peroneal and popliteal artery 04/13/2021ight popliteal and peroneal artery atherectomy and angioplasty 12/2017Left femoral endarterectomy, right superficial Femoral artery atherectomy and angioplasty 06/[id number] fusion [facility] [place] 09/18/2024 * Hospitalization/Major Diagno stic Procedure: B [...] 04/13/2025 Generated for Allison jimenez/Bhavin/Alexsmitting on: 1 12/22/2024 07:56 AM EST History and Physical Notes * [...]
--- OUTSIDE RECORDS SUMMARY | 2025-05-05 04:30 | XMS_ITS ---
Author Organization Trevon Colby III, MD Address [address] [place] [address] [place] [address] Care Team Providers Care Avionics System Engineer Name Role Phone Dr. Trevon Colby [...] Provider Diagnosis Trevon Colby III, MD [address] [place] [address] DR FAITH [facility] [place] [address] 05/05/2025 Trevon Colby Hyperlipidemia E78.5 ; Peripheral [...] all of his medications. He saw his vise hand this month who found him to be [...] Provider Name:Trevon Colby , 10/29/2025 09:45:00 AM, [address] [place] [address] JORGE ALBERTO DANIELSON, [place], [address], Provider Name:Trevon Colby , 05/06/2026 09:30:00 AM, [address] [place] [address] [place], [address], Progress Notes * Spencer PR[birth year]EDOB:[birth year] (79 yo M)Acc No.[id number]:05/05/2025 Progress Notes Patient: Spencer PATEL Provider: Eduar [...] Bear 1Lumbar L3-5 Laminectomy, partial facetectomy, foraminotomy, [facility], Dr Baltazar 3Angioplasty right peroneal and popliteal artery 1Right popliteal and peroneal artery atherectomy and angioplasty 12/2017Left femoral endarterectomy, right superficial Femoral artery atherectomy and angioplasty 06/[id number] fusion [facility] [place] 09/18/2024 * Hospitalization/Major Diagno [...] all of his medications. He saw his vise hand this month who found him to be [...] 05/05/2025 Generated for Allison jimenez/Bhavin/Demetriaitting on: 1 12/22/2024 07:56 AM EST History [...]
--- OUTSIDE RECORDS SUMMARY | 2025-05-07 05:27 | XMS_ITS ---
Author Organization Trevon Colby III, MD Address [address] [place] [address] [place] [address] Care Team Providers Care Disc Pad Plate Filler Name Role Phone Dr. Trevon Colby III Primary Care Provider REASON FOR VISIT ? Rx Social History Sex Assigned At : Social History Observation Description Sex Assigned At Male Encounters Encounter Location Date Provider Diagnosis Trevon Colby III, MD [address] [place] [address] [place] [address] 05/07/2025 Trevon Colby Plan Of Treatment Next Appt Details Provider Name:Trevon Colby , 10/29/2025 09:45:00 AM, [address] [place] [address] [place], [address], Provider Name:Trevon Colby , 05/06/2026 09:30:00 AM, [address] [place] [address] JORGE ALBERTO [place]EL[place], [address], Progress Notes * Spencer PR[birth year]EDOB:[birth year] (79 yo M)Acc No.[id number]:05/07/2025 Patient: Spencer PATEL :1945 A ge:79 Y S ex:Male Address:[address] [place], [address] * true * Date: Generated for Printi ng/Faxing/eTransmitting on: 1 12/22/2024 07:54 AM EST
--- OUTSIDE RECORDS SUMMARY | 2025-08-06 04:45 | XMS_ITS ---
Author Organization Trevon Colby III, MD Address [address] [place] [address] [place] [address] Care Team Providers Care Cafe Operator Name Role Phone Dr. Trevon Colby [...] Date Provider Diagnosis Trevon Colby III, MD [address] [place] [address] [place] [address] 08/06/2025 Trevon Colby Hyperlipidemia E78.5 ; Coronary [...] Provider Name:Trevon Colby , 10/29/2025 09:45:00 AM, [address] [place] [address] , [facility] [address], [place], [address], Provider Name:Trevon Szymanskine , 05/06/2026 09:30:00 AM, [address] [place] [address] [address]EL[address], [place], [address], Progress Notes * Spencer PR[birth year]EDOB:[birth year] (80 yo M)Acc No.[id number]:08/06/2025 Progress Notes Patient: Spencer PATEL Provider: Eduar Colby MD :1945 A ge:80 Y S ex:Male Date:08/06/2025 Address:[address] [place] [address], [place], [phone] Subjective: * Chief Complaints: * P [...] Bear 1Lumbar L3-5 Laminectomy, partial facetectomy, foraminotomy, [facility], Dr Baltazar 3Angioplasty right peroneal and popliteal artery 1Right popliteal and peroneal artery atherectomy and angioplasty 12/2017Left femoral endarterectomy, right superficial Femoral artery atherectomy and angioplasty 06/[id number] fusion [facility] 09/18/2024 * [...] 08/06/2025 Generated for Printi ng/Faradhamesg/eTransmitting on: 1 12/22/2024 07:55 AM EST History and Physical Notes * [...]
--- OUTSIDE RECORDS SUMMARY | 2025-09-11 05:30 | XMS_ITS ---
Author Organization Trevon Colby III, MD Address [address] [place] [address] [place] [address] Care Team Providers Care Special Education Math Teacher Name Role Phone Dr. Trevon Colby III Primary Care Provider REASON FOR VISIT Clearance Form Social History Sex Assigned At : Social History Observation Description Sex Assigned At Male Encounters Encounter Location Date Provider Diagnosis Trevon Colby III, MD [address] [place] [address] [place] [address] 09/11/2025 Trevon Colby Plan Of Treatment Next Appt Details Provider Name:Trevon Colby , 10/29/2025 09:45:00 AM, [address] [place] [address] [place], [address], Provider Name:Trevon Colby , 05/06/2026 09:30:00 AM, [address] [place] [address] [place], [address], Progress Notes * Spencer PR[birth year]EDOB:[birth year] (80 yo M)Acc No.[id number]:09/11/2025 Patient: Spencer PATEL :1945 A ge:80 Y S ex:Male Address:[address] [place], [address] * true * Date: Generated for Printi ng/Faxing/eTransmitting on: 1 12/22/2024 07:51 AM EST
--- OUTSIDE RECORDS SUMMARY | 2025-10-21 07:54 | XMS_ITS ---
[...] lipid profile in the near future. 02/11/2025 Hyperlipidemia (ICD-10 - E78.5) His total [...] is stable and will be followed carefully. 02/11/2025 Osteoarthritis of right hip (ICD-10 - [...] healthy weight maintenance diet low in cholesterol. 02/11/2025 Spinal stenosis, lumbar (ICD-10 - M48.06) [...] no gross recurrence. Surveillance will continue 02/11/2025 Peripheral vascular disease (ICD-10 - I73.9) [...] all of his medications. He saw his laborer laboratory this month who found him to be stable and gave him an appointment to return in one year. 08/06/2025 Emphysema lung (ICD-10 - J43.9) He is no longer smoking. He is short of breath with sustained exertion but is comfortable breathing room air at rest. 05/05/2025 Stage 2 chronic kidney disease (ICD-10 [...] and was thought to be stable. 05/05/2025 Former smoker (ICD-1 0 - Z87.891) [...] EKG 08/23/2023 Next Appt Details Provider Name:Trevon Saravia Lasha , 10/29/2025 09:45:00 AM, [address] [place] [address] [address], [place], [address], Provider Name:Trevon Colby , 05/06/2026 09:30:00 AM, [address] [facility] [facility], [place], [address], Insurance Providers Payer Name Payer Address Payer Phone Subscriber Number Group Number Insured Name Patient Relationship to Insured Coverage Start Date Coverage End Date [address] [facility] [phone] [id number] AlbertJasonSpencer Self - patient is the insured MEDICARE NGS [address] [place] [address] [id number] Spencer Price Self - patient is the [...] 17 Surgical History Surgery Date(Month/Year) L3-L5 fusion C 09/18/2024 Left femoral endarterectomy, right superficial Femoral artery atherectomy and angioplasty 06/2018 Right popliteal and peroneal artery athe rectomy and angioplasty 12/2017 Angioplasty right peroneal and popliteal artery 04/13/2021 Lumbar L3-5 Laminectomy, par tial facetectomy, foraminotomy, [facility], Dr Baltazar 10/25/[address] Bear [...] Reason Date(Month/Year) Back surgery on september 1709/2024 Patient Health Record Created on: October 21, 2025 Spencer Price : 1945 Sex: Male Author Organization Trevon Colby III, MD Address [address] [place] [address] [place] [address] Care Team Providers Care Purchasing Internship Name Role Phone Dr. Trevon Colby III [...] - 1.3 BLD Negative Negative - US arterial duplex BI w/ NA Reviewed date:01/19/2025 08:16:21 PM Interpretation: Performing Lab: Notes/Report: [address] [address] Ultrasound Report Signed Patient: Spencer Price MR#: [id number] : 1945 Acct:[id number] Age/Sex: 79 / M ADM Date: 11/06/24 Loc: HO.US Attending Dr: Rusty Bear MD Ordering Physician: Rusty Bear MD Date of Service: 11/06/24 Procedure(s): US arterial duplex BI w/ NA Accession Number(s): [id number] cc: Trevon Colby MD; Rusty Bear MD [...] Stent from the proximal to mid SFA: Osage artery proximal to stent: 97 cm/s Proximal stent: 142 cm/s Mid stent: 119 cm/s Distal stent: 172 cm/s Osage artery distal to stent: 154 cm/s Superficial femoral artery (mid): 154 cm/s. Stent from mid to distal SFA: Osage artery proximal to stent: 145 cm/s Proximal stent: 136 cm/s Mid stent: 121 cm/s Distal stent: 146 cm/s Osage artery distal to stent: 94 cm/s Diastolic [...] by: Yair Guaman MD 11/24/2024 12:37 PM [facility] Dictated By: Yair Guaman MD Signed By: <Electronically signed by Yair Guaman MD in OV> 11/24/24 1237 DD/ 1315 TD/TT: 11/06/24 1400 Millinery Teacher: [place] [address] Ultrasound Report Signed Patient: Spencer Price MR#: [id number] : 1945 Acct:[id number] Age/Sex: 79 / M ADM Date: 11/06/24 Loc: .US Attending Dr: Rusty Bear MD Ordering Physician: Rusty Bear MD Date of Service: 11/06/24 Procedure(s): US arterial duplex BI w/ NA Accession Number(s): [id number] cc: Trevon Colby MD; Rusty Bear MD [...] from the proxi mal to mid SFA: Osage artery proxim al to stent: 97 cm/s Proximal stent: 142 cm/s Mid stent: 119 cm/s Distal stent: 172 cm/s Osage artery distal to stent: 154 cm/s Superficial femoral artery (mid): 154 cm/s. Stent from mid to distal SFA: Osage artery proxim al to stent: 145 cm/s Proximal stent: 136 cm/s Mid stent: 121 cm/s Distal stent: 146 cm/s Osage artery distal to stent: 94 cm/s Diastolic [...] by: Yair Guaman MD 11/24/2024 12:37 PM [facility] Dictated By: Yair Guaman MD Signed By: <Electronically signed by Yair Guaman MD in OV> 11/24/24 1237 DD/ 1315 TD/TT: 11/06/24 1400 Millinery Teacher: XR lumbar spine 4V min Reviewed date:01/19/2025 08:16:21 PM Interpretation: Performing Lab: Notes/Report: [facility] [address] [place] [address] XRay Report Signed Patient: Spencer Price MR#: [id number] : 1945 Acct:[id number] Age/Sex: 79 / M ADM Date: 11/17/24 Loc: HO.HOSX Attending Dr: Vikram RUVALCABA Ordering Physician: Vikram Grant Date of Service: 11/17/24 Procedure(s): XR lumbar spine 4V min Accession Number(s): [id number] cc: Trevon Colby MD; Vikram Grant . [...] by: Akshat Jiang MD 11/19/2024 01:05 PM [facility] Dictated By: Akshat Hooper MD Signed By: <Electronically signed by Akshat Jordan MD in OV> 11/19/24 1305 DD/ 0855 TD/TT: 11/17/24 0900 Millinery Teacher: [facility] [address] [place] [address] XRay Report Signed Patient: Spencer Price MR#: [id number] : 1945 Acct:[id number] Age/Sex: 79 / M ADM Date: 11/17/24 Loc: HO.HOSX Attending Dr: Vikram RUVALCABA Ordering Physician: Vikram Grant Date of Service: 11/17/24 Procedure(s): XR lum bar spine 4V min Accession Number(s): [id number] cc: Trevon Colby MD; Vikram Grant . [...] by: Akshat Jiang MD 11/19/2024 01:05 PM [facility] Dictated By: Akshat Rivas MD Signed By: <Electronically signed by Akshat Jordan MD in OV> 11/19/24 1305 DD/ 0855 TD/TT: 11/17/24 0900 Millinery Teacher: MR lumbar spine wo/w con Reviewed date:01/19/2025 08:16:21 PM Interpretation: Performing Lab: Notes/Report: [address] [address] Magnetic Resonance Report Signed Patient: Spencer Price MR#: [id number] : 1945 Acct:[id number] Age/Sex: 79 / M ADM Date: 11/19/24 Loc: HO.MRI Attending Dr: Vikram RUVALCABA Ordering Physician: Vikram Grant Date of Service: 11/19/24 Procedure(s): MR lumbar spine wo/w con Accession Number(s): [id number] cc: Trevon Colby MD; Vikram Grant EXAMINATION: [...] 11/24/24 0953 DD/ 1220 TD/TT: 11/19/24 1312 Millinery Teacher: [place] [address] Magnetic Resonance Report Signed Patient: Spencer Price MR#: [id number] : 1945 Acct:[id number] Age/Sex: 79 / M ADM Date: 11/19/24 Loc: HO.MRI Attending Dr: Vikram RUVALCABA Ordering Physician: Vikram Grant Date of Service: 11/19/24 Procedure(s): MR lum bar spine wo/w con Accession Number(s): [id number] cc: Trevon Colby MD; Vikram Grant EXAMINATION: [...] 11/24/24 0953 DD/ 1220 TD/TT: 11/19/24 1312 Millinery Teacher: Complete Blood Count Auto Di ff Reviewed date:02/04/2025 08:51:44 AM Interpretation: Performing Lab:[facility], [address] [place] [phone] Notes/Report: White Blood Count 5.0 4.8-10.8 X10*3/uL [...] NRBC Abs Auto 0.000 0.0-0.012 X10*3/uL Comprehensive [place]. Panel Fa st Reviewed date:02/04/2025 08:51:44 AM Interpretation: Performing Lab:[facility], [address] [place] [phone] Notes/Report: Sodium 137 135-145 mmol/L Potassium 4.6 [...] Panel Reviewed date:02/04/2025 08:51:45 AM Interpretation: Performing Lab:[facility], [address] [place] [phone] Notes/Report: Triglycerides 56 <150 mg/dL Desirable Triglyceride: [...] Antigen Reviewed date:02/04/2025 08:51:45 AM Interpretation: Performing Lab:[facility], [address] [place] [phone] Notes/Report: Prostate Specific Antigen 2.83 <0.05-4.0 ng/mL PSA methodology: Chavez Alinity i Chemiluminescent Microparticle Immunoassay (CMIA) Blood Urea Nitrogen Reviewed date:05/07/2025 04:33:18 AM Interpretation: Performing Lab:[address] [address] Notes/Report: Blood Urea Nitrogen 32 9-16 mg/dL Creatinine Reviewed date:05/07/2025 04:33:18 AM Interpretation: Performing Lab:[facility], [address] [place] [phone] Notes/Report: Creatinine 1.50 0.5-1.4 mg/dL Estimated Glomerular Filt Rate 45 Chronic Kidney Disease: Estimated GFR < 60 mL/min/1.73m2 Severe Kidney Disease: Estimated GFR < 15 mL/min/1.73m2 CT angio abd aorta runoff Reviewed date:05/07/2025 04:33:18 AM Interpretation: Performing Lab: Notes/Report: [address] [address] [address] Scan Report Signed Patient: Spencer Price MR#: [id number] : 1945 Acct:[id number] Age/Sex: 79 / M ADM Date: 04/16/25 Loc: .CT Attending Dr: Rusty Bear MD Ordering Physician: Rusty Bear MD Date of Service: 04/16/25 Procedure(s): CT angio abd aorta runoff Accession Number(s): [id number] cc: Trevon Colby MD; Rusty Bear MD Report Number: [id number]: Total DLP = 787.00 mGy-cm CLINICAL HISTORY: [...] in OV> 04/17/2549 DD/ 8 TD/TT: 04/17/25848 Millinery Teacher: [place] [address] CT Scan Report Signed Patient: Spencer Price MR#: [id number] : 1945 Acct:[id number] Age/Sex: 79 / M ADM Date: 04/16/25 Loc: HO.CT Attending Dr: Rusty Bear MD Ordering Physician: Rusty Bear MD Date of Service: 04/16/25 Procedure(s): CT ang io abd aorta runoff Accession Number(s): [id number] cc: Trevon Colby MD; Rusty Bear MD Report Number: [id number]: Total DLP = 787.00 mGy-cm CLINICAL HISTORY: [...] in OV> 04/17/25848 DD/ 8 TD/TT: 04/17/25848 Millinery Teacher: Complete Blood Count Auto Di ff Reviewed date:05/07/2025 04:33:18 AM Interpretation: Performing Lab:[facility], [address] [place] [phone] Notes/Report: White Blood Count 4.7 4.8-10.8 X10*3/uL [...] NRBC Abs Auto 0.000 0.0-0.012 X10*3/uL Comprehensive [place]. Panel Fa st Reviewed date:05/07/2025 04:33:18 AM Interpretation: Performing Lab:[facility], [address] [place] [phone] Notes/Report: Sodium 140 135-145 mmol/L Potassium 5.1 [...] Panel Reviewed date:05/07/2025 04:33:18 AM Interpretation: Performing Lab:[address] [address] Notes/Report: Triglycerides 46 <150 mg/dL Desirable Triglyceride: [...] ff Reviewed date:05/07/2025 04:33:18 AM Interpretation: Performing Lab:[address] [address] Notes/Report: White Blood Count 5.2 4.8-10.8 X10*3/uL [...] Nitrogen Reviewed date:05/07/2025 04:33:18 AM Interpretation: Performing Lab:[facility], [address] [place] [phone] Notes/Report: Blood Urea Nitrogen 46 9-16 mg/dL Creatinine Reviewed date:05/07/2025 04:33:18 AM Interpretation: Performing Lab:[facility], [address] [place] [phone] Notes/Report: Creatinine 1.66 0.5-1.4 mg/dL Creatinine Clr [...] ff Reviewed date:08/02/2025 01:22:03 PM Interpretation: Performing Lab:[facility], [address] [place] [phone] Notes/Report: White Blood Count 4.8 4.8-10.8 X10*3/uL [...] NRBC Abs Auto 0.000 0.0-0.012 X10*3/uL Comprehensive [place]. Panel Fa st Reviewed date:08/02/2025 01:22:03 PM Interpretation: Performing Lab:[facility], [address] [place] [phone] Notes/Report: Sodium 140 135-145 mmol/L Potassium 4.6 [...] Panel Reviewed date:08/02/2025 01:22:03 PM Interpretation: Performing Lab:[facility], [address] [place] [phone] Notes/Report: Triglycerides 48 <150 mg/dL Desirable Triglyceride: [...] date:08/24/2025 09:28:21 AM Interpretation: Performing Lab: Notes/Report: [address] [address] Ultrasound Report Signed Patient: Spencer Price MR#: [id number] : 1945 Acct:[id number] Age/Sex: 80 / M ADM Date: 08/11/25 Loc: HO. Attending Dr: Rusty Bear MD Ordering Physician: Rusty Bear MD Date of Service: 08/11/25 Procedure(s): US arterial duplex BI w/ NA Accession Number(s): [id number] cc: Trevon Colby MD; Rusty Bear MD [...] Spectral broadening. Stent Superficial femoral artery midsegment: Osage artery proximal to the stent: 113 cm/s and biphasic waveforms. Proximal stent: 119 cm/s and monophasic waveform. Mid stent: 116 cm/s and monophasic waveform. Distal stent: 128 ms and monophasic waveform. Osage artery distal to stent: 102 cm/s. Stent, distal superficial femoral artery: Osage artery proximal to the stent: 93 cm/s and monophasic waveform. Proximal stent: 102 cm/s and monophasic waveform. Mid stent: 110 cm/s and monophasic waveform. Distal stent: 89 cm/s and monophasic waveform. Osage artery distal to the stent: 97 cm/s [...] OV> 08/12/2522 DD/ 0945 TD/TT: 08/11/25 1015 Millinery Teacher: [address] [address] Ultrasound Report Signed Patient: Spencer Price MR#: [id number] : 1945 Acct:[id number] Age/Sex: 80 / M ADM Date: 08/11/25 Loc: HO.US Attending Dr: Rusty Bear MD Ordering Physician: Rusty Bear MD Date of Service: 08/11/25 Procedure(s): US arterial duplex BI w/ NA Accession Number(s): [id number] cc: Trevon Colby MD; Rusty Bear MD [...] Spectral broadening. Stent Superficial femoral artery midsegment: Osage artery proxim al to the stent: 113 cm/s and biphasic waveforms. Proximal stent: 119 cm/s and monophasic waveform. Mid stent: 116 cm/s and monophasic waveform. Distal stent: 128 ms and monophasic waveform. Osage artery distal to stent: 102 cm/s. Stent, distal superficial femoral artery: Osage artery proxim al to the stent: 93 cm/s and monophasic waveform. Proximal stent: 102 cm/s and monophasic waveform. Mid stent: 110 cm/s and monophasic waveform. Distal stent: 89 cm/ s and monophasic waveform. Osage artery distal to the stent: 97 cm/s [...] Akshat Jordan MD in OV> 08/12/25921 DD/ 4 TD/TT: 08/11/25 101 Millinery Teacher: Reason For Referral No Information Medications Medication [...] Problem Status W/U Status Risk Notes Problem 4577346 Former smoker (Z87.891) Active confirmed He is highly motivated not to smoke and we discussed means of preserving abstinence in times of stress. Problem 65216335 Hyperlipidemia (E78.5) Active confirmed His total cholesterol level is low. His lipids are in near target range. No change in his medications was made. His lipids were reviewed. He will have fasting lipid profile in the near future. Problem 855601835 Overweight (E66.3) Active confirmed His body mass [...] weight maintenance diet low in cholesterol. Problem 643137703 Tubular adenoma (D36.9) Active confirmed He will continue to undergo colonoscopies every 5 years. Problem 25557551 Carpal tunnel syndrome, right upper limb (G56.01) Active confirmed He has seen the orthopedic surgeon and will undergo surgery for carpal tunnel syndrome on the right later this month. He is cleared for surgery at this time. Problem 59551680 Coronary artery disease (I25.10) Active confirmed His angina is stable. He reports none recently. He was compliant with all of his medications since his last visit. No change in his regimen was needed. Problem 668921076 BPH (benign prostatic hyperplasia) (N40.0) Active confirmed He arises from sleep once or twice a night to urinate. We have discussed lifestyle modifications he could make to reduce nocturia. Problem 561605017 Peripheral vascular disease (I73.9) Active confirmed He [...] and was thought to be stable. Problem 094828117 Degenerative joint disease (DJD) of lumbar spine (M47.816) Active confirmed A recent MRI shows spinal stenosis and foraminal impingement. He has an upcoming appointment with a neurosurgeon at the end of this month. Problem 079319477 Erectile dysfunction (N52.9) Active confirmed This is well compensated with medications. Problem 596238107 Osteoarthritis of right hip (M16.11) Active confirmed . He describes a hip pain as mild today. Problem 90965531 Spinal stenosis, lumbar (M48.06) Active confirmed The lumbar fusiontook place without side effects or incidents. He notices a substantial improvement in his back pain. The wound is well-healed. He reports much less pain with ambulation. 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 The discomfort has resolved. Problem Pulmonary emphysema (92819646) Emphysema lung (J43.9) Active confirmed He is no longer smoking. He is short of breath with sustained exertion but is comfortable breathing room air at rest. Problem 453392470 History of bladder cancer (Z85.51) Active confirmed There was no sign of cancer on his exam today. He recently had a cystoscopy, March 2024 which showed no gross recurrence. Surveillance will continue Problem 086997178 Stage 2 chronic kidney disease (N18.2) Active confirmed His renal function is stable and will be followed carefully. Problem 2003317264822 Recurrent epistaxis (R04.0) Active confirmed He will continue the use of aspirin. He was instructed on techniques to stop bleeding. He was instructed to go to the emergency room if bleeding does not stop. If this continues he will see ENT for definitive treatment. 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) [...] Date Provider Diagnosis Trevon Colby III, MD [address] [place] [address] [place] [phone] 02/11/2025 Trevon Colby Injury of left peron eal nerve, sequela S84.12XS ; Hyperlipidemia E78.5 ; Stage 2 chronic kidney disease N18.2 ; Osteoarthritis of right hip M16.11 ; Overweight E66.3 ; Spinal stenosis, lumbar M48.06 ; BPH (benign prostatic hyperplasia) N40.0 ; Former smoker Z87.891 and Peripheral vascular disease I73.9 Trevon Colby III, MD [address] [place] [address] [place] [address] 04/13/2025 Trevon Colby Hyperlipidemia E78.5 ; Recurrent epistaxis R04.0 ; Osteoarthritis of right hip M16.11 ; Spinal stenosis, lumbar M48.06 ; Former smoker Z87.891 and Peripheral vascular disease I73.9 Trevon Colby III, MD [address] [place] [address] [place] [address] 05/05/2025 Trevon Colby Hyperlipidemia E78.5 ; Peripheral [...] Emphysema lung J43.9 Trevon Colby III, MD [address] [place] [address] [place] [address] 08/06/2025 Trevon Colby Hyperlipidemia E78.5 ; Coronary artery disease I25.10 ; Stage 2 chronic kidney disease N18.2 ; Osteoarthritis of right hip M16.11 ; Overweight E66.3 ; Spinal stenosis, lumbar M48.06 ; BPH (benign prostatic hyperplasia) N40.0 ; History of bladder cancer Z85.51 ; Emphysema lung J43.9 and Peripheral vascular disease I73.9 Trevon Colby III, MD [address] [place] [address] [place] [address] 11/28/2024 Trevon Colby Hyperlipidemia E78.5 Trevon Colby III, MD [address] [place] [address] [place] [address] 12/12/2024 Trevon Colby Hyperlipidemia E78.5 Trevon Colby III, MD [address] [place] [address] [place] [address] 01/19/2025 Trevon Colby III, MD [address] [place] [address] [place] [address] 01/20/2025 Trevon Colby III, MD [address] [place] [address] [place] [address] 05/07/2025 Trevon Colby III, MD [address] [place] [address] [place] [address] 09/11/2025 Trevon Colby
--- OUTSIDE RECORDS SUMMARY | 2025-10-21 07:55 | XMS_ITS | Encounter Summary ---
Author Organization [facility] Address [address] [place] [address] Care Team Providers Care Chief Accountant Name Role Phone Physician, Pcp Unknown Primary Care Provider Lo vailable Encounter Details Date Type Department Care Team (Late st Contact Info) Description 06/15/2025 Lab Requisition [facility] - Main Lab [address] [place] [phone] Kleber Rodriguez MD [address] [place] [address] Malignant neoplasm of overlapping sites [...] AM EDT) Final Diagnosis A. Urine, Voided, [id number]: Negative for high grade urothelial carcinoma. Results of UroVysion fluorescence in situ hybridization (FISH) testing: CEP3: Normal CEP7: Normal CEP17: Normal LSI 9p21: Normal Interpretation: Normal profile Controls stained appropriately. Note: The results are intended as a screening device and should be interpreted in association with other clinical and pathological findings. 06/23/2025 9:06 AM EDT [facility] at 0906 EDT Specimen A Adequacy Satisfactory for evaluation 06/23/2025 9:06 AM EDT [facility] Clinical Information Malignant neoplasm of overlapping sites of bladder C67.8 Urine Cytology/FISH (now) 06/23/2025 9:06 AM EDT [facility] Gross Description A. Urine, Voided, [id number]: Received one ThinPrep slide for cytology and one ThinPrep slide for UroVysion FISH 06/23/2025 9:06 AM EDT [facility] Disclaimer Unless otherwise specified, all tissue is 10% NB formalin fixed and paraffin embedded. Technical pathology services provided by [facility] at [address] [place] [address] (CLIA #[id number]/Jacque Good MD, Flight Technician) 06/23/2025 9:06 AM T [facility] Urine Urine specimen from urethra / Unknown 06/08/2025 06/15/2025 9:32 AM EDT us Kleber Rodriguez MD LAB CYTOLOGY ORDERABLES Final R esult [facility] [address] [place] [address], documented in this encounter Visit Diagnoses Diagnosis Malignant neoplasm of overlapping sites of bladder (CMS/HCC V24, CMS/HCC V28) documented in this encounter Care Teams Chief Accountant Relationship Specialty Start Date End Date Physician, Pcp Unknown PCP - General 06/15/25 documented as of this encounter
--- OUTSIDE RECORDS SUMMARY | 2025-10-21 07:57 | XMS_ITS | Clinical Summary ---
Author Organization [address] Address [address] [place] [address] Phone Care Team Providers Care Dairy Grazer Name Role Phone Physician, Pcp Unknown Primary Care Provider Lo vailable Social History Tobacco Use Types Packs/Day Years Used Date Smoking Tobacco: Former Smokeless Tobacco: Never Sex and Gender Information Value Date Recorded Sex Assigned at Not on file Legal Sex Male 5:48 AM EST Gender Identity Not on file Sexual Orientation Not on file Plan of Treatment Health Maintenance Due Date [...] Influencers of Health Screening 06/15/2025 COVID-19 Vaccine (1 - 2024-2 6 season) 2025 Influenza Vaccine (#1) 2025 HIB [...] patient's age to complete this topic Insurance [facility] Care Teams Dairy Grazer Relationship Specialty Start Date End Date Physician, Pcp Unknown PCP - General 06/15/25
[2025-10-21 11:08] LABS: MANUAL DIFF FLAG NO
[2025-10-21 11:30] LABS: Hematocrit 38.4 % (42.0-52.0); Hemoglobin 12.3 g/dl (14.0-18.0); Imm Gran Abs Auto 0.03 X10*3/uL (0.00-0.03); Imm Gran Pct Auto 0.5 % (0.0-0.4); Lymphocytes Absolute Auto 1.7 X10*3/uL (1.2-4.9); Mean Corpuscular HGB Conc 32.0 g/dl (31.0-36.0); Mean Corpuscular Hemoglobin 32.8 pg (27.0-33.0); Mean Corpuscular Volume 102.4 fL (80.0-98.0); NRBC Abs Auto 0.000 X10*3/uL (0.0-0.012); NRBC Pct Auto 0.0 /100WBC (0.0-0.2); Platelet Count 241 X10*3/uL (160-400); Red Blood Count 3.75 X10*6/uL (4.60-5.80); White Blood Count 6.5 X10*3/uL (4.8-10.8)
[2025-10-21 12:40] LABS: Alanine Aminotransferase 25 U/L (0-40); Albumin Level 4.0 g/dL (3.5-5.0); Alkaline Phosphatase 94 U/L (39-117); Anion Gap 11 (12-20); Aspartate Amino Transferase 35 U/L (5-37); Blood Urea Nitrogen 54 mg/dL (9-16); Calcium 9.7 mg/dL (8.4-10.2); Carbon Dioxide 26 mmol/L (22-29); Chloride 107 mmol/L (96-108); Cholesterol 119 mg/dL (<200); Estimated Glomerular Filt Rate 30; HDL Cholesterol 59 mg/dL (>40); Potassium 5.2 mmol/L (3.3-5.1); Sodium 139 mmol/L (135-145); Total Protein 6.7 g/dL (6.5-8.0); Triglycerides 49 mg/dL (<150)
== END 2025-10-21 07:36 ==
LOC: HO.WFDLDS 07:35
PROVIDERS: Visit Provider Internal Medicine Medical Oncology
DX: I25.10 Atherosclerotic heart disease of native coronary artery without angina pectoris (principal); N18.2 Chronic kidney disease, stage 2 (mild); E78.5 Hyperlipidemia, unspecified
CPT/HCPCS: 36415; 80053; 80061; 85025